=== PATIENT | female | born 1990 | race Caucasian/White ===

== ENCOUNTER 2016-08-29 20:16 | Inpatient (IN) | payer OTHER ==
[~2016-08-29] VITALS: Ht 162.6 cm; Wt 54.0 kg
[~2016-08-29 20:16] MED LIST: AMOX500C PO; BACL10TA PO; BUME1TAB PO; CELE20TA PO; DOCU1CAP39 PO; FURO1TAB62 PO; GABA800T PO; LACT PO; MULT-28 PO; OXYC-392 PO; POTA20TA5 PO; REST15CA PO; VENTAER INH
[2016-08-29 20:20] VITALS: BP 138/99; PULSE 130; RESP 38; TEMP 98.1; O2SAT 100; O2SAT 97
[2016-08-29] MEDS ORDERED: VANCOMYCIN INJ 1,250 MG in SODIUM CHLOR 0.9% 250 ML INJ 250 ML IV STA (20:41)
[2016-08-29] MEDS ORDERED: AZITHROMYCIN INJ 500 MG in SODIUM CHLOR 0.9% 250 ML INJ 250 ML IV STA (20:41)
[2016-08-29] MEDS ORDERED: SODIUM CHLORIDE 0.9% FLUSH 5 ML FLUSH IVF PRN (20:45)
[2016-08-29] MEDS ORDERED: CEFEPIME INJ 2,000 MG in SODIUM CHLORIDE 0.9% INJ 100 ML IV ONE (20:45)
[2016-08-29 21:00] VITALS: BP 138/99; PULSE 130; RESP 40; TEMP 98.1; O2SAT 95; O2SAT 97
[2016-08-29 21:05] LABS: AUTOMATED NEUTROPHIL # 5.6 TH/MM3 (1.8-7.7); BASOPHIL # 0.1 TH/MM3 (0-0.2); BASOPHIL % 0.6 % (0.0-2.0); EOSINOPHIL # 0.1 TH/MM3 (0-0.4); EOSINOPHIL % 0.8 % (0.0-4.0); HEMO FLAGS DIFF FINAL; LYMPH % 42.6 % (9.0-44.0); LYMPHOCYTE # 4.8 TH/MM3 (1.0-4.8); MEAN CELL VOLUME 99.9 FL (80.0-100.0); MEAN CORPUSCULAR HEMOGLOBIN 31.6 PG (27.0-34.0); MEAN CORPUSCULAR HGB CONC 31.7 % (32.0-36.0); PLATELET COUNT 178 TH/MM3 (150-450); WHITE BLOOD COUNT 11.2 TH/MM3 (4.0-11.0)
[2016-08-29] MEDS ORDERED: HYDROmorphone HCL PF 1 MG/ML VIAL IV PUSH ONE ×2 (21:15→22:30)
--- NOTE | 2016-08-29 21:20 | RADRPT ---
EXAM DATE/TIME: 08/29/2016 20:47 [facility] COMPARISON: CHEST SINGLE AP, August 20, 2016, 17:14. INDICATIONS : Shortness of breath MEDICAL HISTORY : Cerebrovascular accident. Endocarditis. Hepatitis C. IV drug use. Clostridium SURGICAL HISTORY : None. ENCOUNTER: Initial ACUITY: 1 day PAIN SCORE: 0/10 LOCATION: Bilateral chest FINDINGS: There is cardiomegaly, bilateral effusions and consolidation suspected. Osseous structures are intact . CONCLUSION: Airspace disease and effusions. Jonny Neal MD on August 29, 2016 at 21:18 Board Certified Radiologist. This report was verified electronically.
[2016-08-29 21:23] LABS: INTERNATIONAL NORMALIZED RATIO 1.5 RATIO; PROTHROMBIN TIME - PATIENT 16.4 SEC (9.8-11.6)
[2016-08-29 21:24] LABS: ANION GAP 14 MEQ/L (5-15); AST (GOT) 162 U/L (15-37); BICARBONATE 21.3 MEQ/L (21.0-32.0); BLOOD UREA NITROGEN 16 MG/DL (7-18); CHLORIDE 94 MEQ/L (98-107); GLOMERULAR FILTRATION RATE 54 ML/MIN (>89); POTASSIUM 5.7 MEQ/L (3.5-5.1); SODIUM (NA) 129 MEQ/L (136-145)
[2016-08-29 21:27] LABS: ALKALINE PHOSPHATASE 261 U/L (45-117); ALT (GPT) 142 U/L (10-53)
[2016-08-29 21:29] LABS: CREATINE KINASE 178 U/L (26-192)
[2016-08-29 21:44] LABS: CKMB 0.9 NG/ML (0.5-3.6)
[2016-08-29] MEDS ORDERED: DEXTROSE 50% IN WATER 50 ML VIAL(D50) IV PUSH ONE (22:00)
[2016-08-29] MEDS ORDERED: CALCIUM GLUCONATE 10% 1 GM/10 ML VIAL SLOW IVP ONE (22:00)
[2016-08-29] MEDS ORDERED: SODIUM BICARBONATE 8.4% SOLN 50 MEQ/50 ML VIAL SLOW IVP ONE (22:00)
[2016-08-29 22:08] LABS: BLOOD GAS BASE EXCESS -7.1 mmol/L (-2-2); BLOOD GAS CARBOXYHEMOGLOBIN 2.8 % (0-4); BLOOD GAS HCO3 17 mmol/L (22-26); BLOOD GAS METHEMOGLOBIN 1.8 % (0-2); BLOOD GAS O2 HGB SATURATION 90 % (90-100); BLOOD GAS OXYGEN CONTENT 18.9 Vol % (12.0-20.0); BLOOD GAS PCO2 26 mmHg (38-42); BLOOD GAS PO2 75 mmHG (61-120); BLOOD GAS TOTAL HGB 14.9 G/DL (12.0-16.0); TEMP CORR TO 98.6
[2016-08-29 22:09] LABS: CRITICAL VALUE NO; DRAW SITE RT RADIAL; LITER FLOW 3 L/M; OXYGEN DEVICE NASAL CANNULA; STAT YES; ULNAR PULSE Y
[2016-08-29] MEDS ORDERED: INSULIN HUMAN REGULAR 1,000 UNITS/10 ML VIAL IV PUSH ONE (22:15)
[2016-08-29] MEDS ORDERED: IOHEXOL 350 MG/ML 10 ML VIAL (for RAD DIAG) IV ONE (22:35)
--- NOTE | 2016-08-29 22:44 | RADRPT ---
EXAM DATE/TIME: 08/29/2016 22:24 [facility] COMPARISON: CHEST SINGLE AP, August 29, 2016, 20:47. INDICATIONS : Shortness of breath and chest pressure. IV CONTRAST: 54 cc Omnipaque 350 (iohexol) IV RADIATION DOSE: 16.36 CTDIvol (mGy) MEDICAL HISTORY : Hepatitis C. SURGICAL HISTORY : None. ENCOUNTER: Initial ACUITY: 1 day PAIN SCALE: 4/10 LOCATION: chest TECHNIQUE: Volumetric scanning of the chest was performed using a pulmonary embolism protocol MIP images were re constructed. Using automated exposure control and adjustment of the mA and/or kV according to patien t size, radiation dose was kept as low as reasonably achievable to obtain optimal diagnostic quality images. FINDINGS: There are patchy bilateral infiltrates throughout both lungs. There are bilateral pleural effusions r ight greater than left. There is reflux of contrast into the hepatic veins. There is no evidence for pulmonary embolism within the main pulmonary arteries bilaterally however evaluation of the subsegmen shanna branches is significantly limited. CONCLUSION: 1. There is no evidence for pulmonary embolism within the main pulmonary arteries. Evaluation of the lower lobe subsegmental branches however is significantly limited and PE cannot be confidently exclud ed on the basis of this examination. 2. Bilateral pleural effusions and patchy bilateral pulmonary infiltrates are identified. Jonny Neal MD on August 29, 2016 at 22:40 Board Certified Radiologist. This report was verified electronically.
[2016-08-29] MEDS ORDERED: FUROSEMIDE 100 MG/10 ML VIAL IV PUSH ONE (22:45)
[2016-08-29 22:55] LABS: LACTIC ACID GHOST NOT REPORTABLE
[2016-08-29] MEDS ORDERED: ROCURONIUM INJ 50 MG/5 ML VIAL ONE (22:56)
[2016-08-29] MEDS ORDERED: ETOMIDATE 20 MG/10 ML VIAL ONE (22:56)
--- NOTE | 2016-08-29 22:59 | PD ---
HPI Chief Complaint: Respiratory Distress Time Seen by Provider: 20:41 Travel History International Travel<30 days: No Contact w/Intl Traveler<30days: No Traveled to known affect area: No History of Present Illness HPI The patient is 26 years old. She arrives short of breath. She has bilateral lower extremity swelling. The lower extremity swelling has been increasingly severe for a couple weeks now. No shortness of breath has been worsening as well. She reports history of DVTs. Her primary care provider saw her today and sent her to the ER for evaluation. 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 She reports no IV drug abuse for the past 6 weeks. PFSH Past Medical History Arthritis: No Asthma: No Autoimmune Disease: No Anxiety: Yes Depression: No Heart Rhythm Problems: No Cancer: No Cardiovascular Problems: Yes (ENDOCARDITIS) High Cholesterol: No Chemotherapy: No Chest Pain: No Congestive Heart Failure: No COPD: No Cerebrovascular Accident: Yes Diabetes: No Diminished Hearing: No Endocrine: No Gastrointestinal Disorders: Yes GERD: No Genitourinary: No Headaches: Yes Hiatal Hernia: No Immune Disorder: No Kidney Stones: No Musculoskeletal: No Neurologic: Yes Psychiatric: Yes Reproductive: No Respiratory: No Migraines: No Pneumonia: Yes Radiation Therapy: No Renal Failure: No Seizures: No Sleep Apnea: No Thyroid Disease: No Ulcer: No Tetanus Vaccination: < 5 Years Influenza Vaccination: Yes ?: Not : 0 Para: 0 Miscarriage: 0 : 0 Past Surgical History Abdominal Surgery: No AICD: No Arteriovenous Shunt: No Cardiac Surgery: No Ear Surgery: No Endocrine Surgery: No Eye Surgery: No Genitourinary Surgery: No Gynecologic Surgery: No Insulin Pump: No Joint Replacement: No Oral Surgery: No Pacemaker: No Thoracic Surgery: No Other Surgery: No Social History Alcohol Use: No Tobacco Use: No Substance Use: No (HX IV ) Allergies-Medications (Allergen,Severity, Reaction): Coded Allergies: *MDRO Multi-Drug Resistant Organism (Verified Adverse Reaction, Unknown, 08/29/16) MRSA PCR screen positive - 10/18/2015 & 08/12/16 MRSA urine, blood, sputum and CSF- 10/2015 MDR PSAE in sputum 2016 Reported Meds & Prescriptions Reported Meds & Active Scripts Active Lasix (Furosemide) 20 Mg Tab 20 Mg PO DAILY 7 Days Amoxicillin 500 Mg Cap 500 Mg PO QID Oxycodone (Oxycodone HCl) 5 Mg Tab 10 Mg PO Q6H PRN Dok (Docusate Sodium) 100 Mg Cap 100 Mg PO BID PRN Ventolin Hfa 18 GM Inh (Albuterol Sulfate) 90 Mcg/Act Aer 2 Puff INH Q4-6H PRN Acidophilus/l-Sporogenes (Lactobacillus Acidophilus) 1 Tab Tab 1 Tab PO TID Potassium Chloride Microencaps 20 Meq Tab 40 Meq PO DAILY Bumetanide 1 Mg Tab 1 Mg PO BID@,18 Baclofen 10 Mg Tab 5 Mg PO Q8HR Restoril (Temazepam) 15 Mg Cap 15 Mg PO HS PRN Celexa (Citalopram Hydrobromide) 20 Mg Tab 20 Mg PO DAILY Hm One Daily/Iron (Multiple Vitamins W/ Iron) 1 Tab Tab 1 Tab PO DAILY Gabapentin 800 Mg Tab 800 Mg PO TID Review of Systems Except as stated in HPI: all other systems reviewed are Neg Physical Exam Narrative GENERAL: 26-year-old female moderate distress tachypneic SKIN: Warm and dry. HEAD: Atraumatic. Normocephalic. EYES: Pupils equal and round. No scleral icterus. No injection or drainage. ENT: No nasal bleeding or discharge. Mucous membranes pink and moist. NECK: Trachea midline. No JVD. CARDIOVASCULAR: Tachycardia. Regular rhythm. RESPIRATORY: Coarse breath sounds bilaterally. Mild tachypnea.. GASTROINTESTINAL: Abdomen soft, non-tender, nondistended. Hepatic and splenic margins not palpable. MUSCULOSKELETAL: No obvious deformities. No clubbing. No cyanosis. 4+ pitting edema bilateral lower extremities. 2+ dorsalis pedis bilaterally. NEUROLOGICAL: Awake and alert. No obvious cranial nerve deficits. Motor grossly within normal limits. Normal speech. PSYCHIATRIC: Appropriate mood and affect; insight and judgment normal. Data Data Last Documented VS Vital Signs Date Time Temp Pulse Resp B/P Pulse Ox O2 Delivery O2 Flow Rate FiO2 08/29/16 21:00 95 Nasal Cannula 3.00 08/29/16 20:20 98.1 130 38 138/99 Orders Complete Blood Count With Diff (08/29/16 20:35) Comprehensive Metabolic Panel (08/29/16 20:35) B-Type Natriuretic Peptide (08/29/16 20:35) Act Partial Throm Time (Ptt) (08/29/16 20:35) Prothrombin Time / Inr (Pt) (08/29/16 20:35) Blood Culture (08/29/16 20:35) Iv Access Insert/Monitor (08/29/16 20:35) Electrocardiogram (08/29/16 20:35) Ecg Monitoring (08/29/16 20:35) Oximetry (08/29/16 20:35) Oxygen Administration (08/29/16 20:35) Chest, Single Ap (08/29/16 20:35) Ct Pulmonary Angiogram (08/29/16 20:35) Sodium Chloride 0.9% Flush (Ns Flush) (08/29/16 20:45) Electrocardiogram (08/29/16 20:41) Lactic Acid Sepsis Protocol (08/29/16 20:41) Ckmb (Isoenzyme) Profile (08/29/16 20:41) Troponin I (08/29/16 20:41) Arterial Blood Gas (Abg) (08/29/16 20:41) Blood Glucose (08/29/16 20:41) Iv Access Insert/Monitor (08/29/16 20:41) Vancomycin Inj (Vancomycin Inj) (08/29/16 20:41) Azithromycin Inj (Zithromax Inj) (08/29/16 20:41) Cefepime Inj (Maxipime Inj) (08/29/16 20:45) Us Leg Venous Doppler Bilat (08/29/16 ) Hydromorphone Pf Inj (Dilaudid Pf Inj) (08/29/16 21:15) CKMB (08/29/16 20:40) CKMB% (08/29/16 20:40) Calcium Gluconate Inj (Calcium Gluconate (08/29/16 22:00) Insulin Human Regular Inj (Novolin R Inj (08/29/16 22:15) Dextrose 50% In Michael (Vial) Inj (D50w (Vi (08/29/16 22:00) Sodium Bicarbonate 8.4% Inj (Sodium Bica (08/29/16 22:00) Hydromorphone Pf Inj (Dilaudid Pf Inj) (08/29/16 22:30) Furosemide Inj (Lasix Inj) (08/29/16 22:45) Iohexol 350 Inj (Omnipaque 350 Inj) (08/29/16 22:35) Admit Order (Ed Use Only) (08/29/16 22:38) Labs Laboratory Tests Test 08/29/16 08/29/16 20:40 21:58 White Blood Count 11.2 TH/MM3 Red Blood Count 5.00 MIL/MM3 Hemoglobin 15.8 GM/DL Hematocrit 50.0 % Mean Corpuscular Volume 99.9 FL Mean Corpuscular Hemoglobin 31.6 PG Mean Corpuscular Hemoglobin 31.7 % Concent Red Cell Distribution Width 21.0 % Platelet Count 178 TH/MM3 Mean Platelet Volume 9.3 FL Neutrophils (%) (Auto) 50.0 % Lymphocytes (%) (Auto) 42.6 % Monocytes (%) (Auto) 6.0 % Eosinophils (%) (Auto) 0.8 % Basophils (%) (Auto) 0.6 % Neutrophils # (Auto) 5.6 TH/MM3 Lymphocytes # (Auto) 4.8 TH/MM3 Monocytes # (Auto) 0.7 TH/MM3 Eosinophils # (Auto) 0.1 TH/MM3 Basophils # (Auto) 0.1 TH/MM3 CBC Comment DIFF FINAL Differential Comment Prothrombin Time 16.4 SEC Prothromb Time International 1.5 RATIO Ratio Activated Partial 28.0 SEC Thromboplast Time Sodium Level 129 MEQ/L Potassium Level 5.7 MEQ/L Chloride Level 94 MEQ/L Carbon Dioxide Level 21.3 MEQ/L Anion Gap 14 MEQ/L Blood Urea Nitrogen 16 MG/DL Creatinine 1.19 MG/DL Estimat Glomerular Filtration 54 ML/MIN Rate Random Glucose 125 MG/DL Lactic Acid Level 8.2 mmol/L Calcium Level 8.7 MG/DL Total Bilirubin 2.0 MG/DL Aspartate Amino Transf 162 U/L (AST/SGOT) Alanine Aminotransferase 142 U/L (ALT/SGPT) Alkaline Phosphatase 261 U/L Total Creatine Kinase 178 U/L Creatine Kinase MB 0.9 NG/ML Troponin I 0.39 NG/ML B-Type Natriuretic Peptide 1732 PG/ML Total Protein 8.0 GM/DL Albumin 3.1 GM/DL Blood Gas Puncture Site RT RADIAL Blood Gas Patient Temperature 98.6 Blood Gas HCO3 17 mmol/L Blood Gas Base Excess -7.1 mmol/L Blood Gas Oxygen Saturation 90 % Arterial Blood pH 7.42 Arterial Blood Partial 26 mmHg Pressure CO2 Arterial Blood Partial 75 mmHG Pressure O2 Arterial Blood Oxygen Content 18.9 Vol % Arterial Blood 2.8 % Carboxyhemoglobin Arterial Blood Methemoglobin 1.8 % Blood Gas Hemoglobin 14.9 G/DL Oxygen Delivery Device NASAL CANNULA Blood Gas Liter Flow 3 L/M MDM Medical Decision Making Medical Screen Exam Complete: Yes Emergency Medical Condition: Yes Medical Record Reviewed: Yes Differential Diagnosis Endocarditis, pneumonia, pleural effusion, DVT, PE, sepsis, multiorgan dysfunction, CHF, valvular regurgitation Narrative Course CBC & BMP Diagram 08/29/16 20:40 Lactic acid 8.2 Total bilirubin 2.0 AST was 62 ALT 142 Alkaline phosphatase 261 Troponin 0.39 BNP 1732 EKG shows sinus tachycardia with no evidence of hyperkalemic EKG changes Last 24 hours Impressions Chest X-Ray 08/29/162034 Signed Impressions: Service Date/Time: Monday, August 29, 2016 20:47 - CONCLUSION: Airspace disease and effusions. Jonny Neal MD CT Angiography 08/29/162034 Signed Impressions: Service Date/Time: Monday, August 29, 2016 22:24 - CONCLUSION: 1. There is no evidence for pulmonary embolism within the main pulmonary arteries. Evaluation of the lower lobe subsegmental branches however is significantly limited and PE cannot be confidently excluded on the basis of this examination. 2. Bilateral pleural effusions and patchy bilateral pulmonary infiltrates are identified. Jonny Neal MD The patient received 80 mg of IV Lasix. Vancomycin, azithromycin and cefepime started here. The patient will be admitted to the [facility]. Discussed with Dr. Edwards. The patient did require BiPAP at approximately 10 50 p.m. Critical Care Narrative Aggregate critical care time was 35 minutes. Time to perform other separately billable procedures was not included in the critical care time. My time did not include minutes spent treating any other patients simultaneously or on activities that did not directly contribute to the patient's treatment. The services I provided to this patient were to treat and/or prevent clinically significant deterioration that could result in: Cardiopulmonary arrest I provided critical care services requiring my management, as noted below: Chart data review, documentation time, medication orders and management, vital sign assessments/reviewing monitor data, ordering and reviewing lab tests, ordering and interpreting/reviewing x-rays and diagnostic studies, care of the patient and discussion of the patient with the admitting physicians. Sepsis Criteria SIRS Criteria (2 or more): Heart rate over 90, RR > 20 or PaCO2 < 32 Sepsis Criteria (SIRS+source): Infect source susp/known Severe Sepsis (+one): Lactate >2 Septic Shock Criteria: Lactic acid >=4 Multiple Organ Dysfunction Syn: Evidence -2 organs failing Diagnosis Primary Impression: Sepsis with multiple organ dysfunction (MOD) Additional Impressions: CHF due to valvular disease Hyperkalemia Admitting Information Admitting Physician Requests: Admit Brendan Blanc MD Aug 29, 2016 22:59
[2016-08-29 23:00] VITALS: BP 141/86; PULSE 141; RESP 38; O2SAT 98
[2016-08-29 23:15] VITALS: O2SAT 95
[2016-08-30] VITALS (17 sets, daily range): BP systolic 89–116; BP diastolic 54–78; PULSE 72–116; RESP 12–22; TEMP 98.3–98.9; O2SAT 97–100
[2016-08-30] MEDS ORDERED: HYDROmorphone HCL PF 1 MG/ML VIAL IV PUSH ONE (01:15)
--- NOTE | 2016-08-30 01:37 | HHI.HP ---
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 status post previous antibiotic therapy who presented to the ER with worsening shortness of breath which has been progressing over the last few months. She was evaluated at her primary care physician's office today and was advised to come to the ER. Patient was noted to be tachycardic with heart rate in the 130s respiratory rate 30s with significant edema on arrival. She was placed on nasal cannula initially however subsequently due to worsening respiratory status was placed on BiPAP. She received Lasix 80 mg IV and weight 1600 cc of urine in the ER. Patient was accepted for admission by critical care medicine service. When I evaluated the patient she was on BiPAP with full facemask, sitting up in the ER stretcher. Review of Systems ROS Shortness of breath, denies any chest pain. Review of systems Limited in view of severe shortness of breath requiring BiPAP with full facemask Past Family Social History Allergies: Coded Allergies: *MDRO Multi-Drug Resistant Organism (Verified Adverse Reaction, Unknown, 08/29/16) MRSA PCR screen positive - 10/18/2015 & 08/12/16 MRSA urine, blood, sputum and CSF- 10/2015 MDR PSAE in sputum 2016 Past Medical History Past Medical History Arthritis: No Asthma: No Autoimmune Disease: No Anxiety: Yes Depression: No Heart Rhythm Problems: No Cancer: No Cardiovascular Problems: Yes (ENDOCARDITIS involving mitral and aortic valve with severe MR and aortic regurg) High Cholesterol: No Chemotherapy: No Chest Pain: No Congestive Heart Failure: No COPD: No Cerebrovascular Accident: Yes Diabetes: No Diminished Hearing: No Endocrine: No Gastrointestinal Disorders: Yes GERD: No Genitourinary: No Headaches: Yes Hiatal Hernia: No Immune Disorder: No Kidney Stones: No Musculoskeletal: No Neurologic: Yes Psychiatric: Yes Reproductive: No Respiratory: No Migraines: No Pneumonia: Yes Radiation Therapy: No Renal Failure: No Seizures: No Sleep Apnea: No Thyroid Disease: No Ulcer: No Tetanus Vaccination: < 5 Years Influenza Vaccination: Yes ?: Not : 0 Para: 0 Miscarriage: 0 : 0 Past Surgical History Past Surgical History Abdominal Surgery: No AICD: No Arteriovenous Shunt: No Cardiac Surgery: No Ear Surgery: No Endocrine Surgery: No Eye Surgery: No Genitourinary Surgery: No Gynecologic Surgery: No Insulin Pump: No Joint Replacement: No Oral Surgery: No Pacemaker: No Thoracic Surgery: No Other Surgery: No Reported Medications Reported Meds & Prescriptions Reported Meds & Active Scripts Active Lasix (Furosemide) 20 Mg Tab 20 Mg PO DAILY 7 Days Amoxicillin 500 Mg Cap 500 Mg PO QID Oxycodone (Oxycodone HCl) 5 Mg Tab 10 Mg PO Q6H PRN Dok (Docusate Sodium) 100 Mg Cap 100 Mg PO BID PRN Ventolin Hfa 18 GM Inh (Albuterol Sulfate) 90 Mcg/Act Aer 2 Puff INH Q4-6H PRN Acidophilus/l-Sporogenes (Lactobacillus Acidophilus) 1 Tab Tab 1 Tab PO TID Potassium Chloride Microencaps 20 Meq Tab 40 Meq PO DAILY Bumetanide 1 Mg Tab 1 Mg PO BID@,18 Baclofen 10 Mg Tab 5 Mg PO Q8HR Restoril (Temazepam) 15 Mg Cap 15 Mg PO HS PRN Celexa (Citalopram Hydrobromide) 20 Mg Tab 20 Mg PO DAILY Hm One Daily/Iron (Multiple Vitamins W/ Iron) 1 Tab Tab 1 Tab PO DAILY Gabapentin 800 Mg Tab 800 Mg PO TID Family History noncontributory at this time. Social History Social History Alcohol Use: No Tobacco Use: No Substance Use: No (HX IV ) Physical Exam Vital Signs Vital Signs Date Time Temp Pulse Resp B/P Pulse Ox O2 Delivery O2 Flow Rate FiO2 08/30/16 00:48 100 60 08/29/16 23:15 95 60 08/29/16 21:00 95 Nasal Cannula 3.00 08/29/16 20:20 98.1 130 38 138/99 97 08/29/16 20:20 130 38 97 Room Air 08/29/16 20:20 38 100 Nasal Cannula 3 08/29/16 20:20 100 Nasal Cannula 3 Physical Exam HEENT/Neuro: No pallor or icterus, tongue moist, ISRA, Awake alert oriented 3 , nonfocal grossly, moving all 4 extremities Neck: No JVD Chest/pulmonary: On BiPAP fullface mask, scattered rhonchi/crackles bilaterally , no wheezing Cardiovascular: S1-S2 regular no gallop or murmur GI/abdomen: Soft, nontender, bowel sounds present Extremities: Warm bilaterally, bilateral edema Laboratory Laboratory Tests Test 08/29/16 08/29/16 20:40 21:58 White Blood Count 11.2 Red Blood Count 5.00 Hemoglobin 15.8 Hematocrit 50.0 Mean Corpuscular Volume 99.9 Mean Corpuscular Hemoglobin 31.6 Mean Corpuscular Hemoglobin 31.7 Concent Red Cell Distribution Width 21.0 Platelet Count 178 Mean Platelet Volume 9.3 Neutrophils (%) (Auto) 50.0 Lymphocytes (%) (Auto) 42.6 Monocytes (%) (Auto) 6.0 Eosinophils (%) (Auto) 0.8 Basophils (%) (Auto) 0.6 Neutrophils # (Auto) 5.6 Lymphocytes # (Auto) 4.8 Monocytes # (Auto) 0.7 Eosinophils # (Auto) 0.1 Basophils # (Auto) 0.1 CBC Comment DIFF FINAL Differential Comment Prothrombin Time 16.4 Prothromb Time International 1.5 Ratio Activated Partial 28.0 Thromboplast Time Sodium Level 129 Potassium Level 5.7 Chloride Level 94 Carbon Dioxide Level 21.3 Anion Gap 14 Blood Urea Nitrogen 16 Creatinine 1.19 Estimat Glomerular Filtration 54 Rate Random Glucose 125 Lactic Acid Level 8.2 Calcium Level 8.7 Total Bilirubin 2.0 Aspartate Amino Transf 162 (AST/SGOT) Alanine Aminotransferase 142 (ALT/SGPT) Alkaline Phosphatase 261 Total Creatine Kinase 178 Creatine Kinase MB 0.9 Troponin I 0.39 B-Type Natriuretic Peptide 1732 Total Protein 8.0 Albumin 3.1 Blood Gas Puncture Site RT RADIAL Blood Gas Patient Temperature 98.6 Blood Gas HCO3 17 Blood Gas Base Excess -7.1 Blood Gas Oxygen Saturation 90 Arterial Blood pH 7.42 Arterial Blood Partial 26 Pressure CO2 Arterial Blood Partial 75 Pressure O2 Arterial Blood Oxygen Content 18.9 Arterial Blood 2.8 Carboxyhemoglobin Arterial Blood Methemoglobin 1.8 Blood Gas Hemoglobin 14.9 Oxygen Delivery Device NASAL CANNULA Blood Gas Liter Flow 3 Date/Time Procedure Status Source Growth 08/29/16 20:45 Aerobic Blood Culture Received Blood Peripheral Pending 08/29/16 20:45 Anaerobic Blood Culture Received Blood Peripheral Pending Result Diagram: 08/29/16203908/29/160 Imaging Last Impressions Chest X-Ray 08/29/162034 Signed Impressions: Service Date/Time: Monday, August 29, 2016 20:47 - CONCLUSION: Airspace disease and effusions. Jonny Neal MD CT Angiography 08/29/162034 Signed Impressions: Service Date/Time: Monday, August 29, 2016 22:24 - CONCLUSION: 1. There is no evidence for pulmonary embolism within the main pulmonary arteries. Evaluation of the lower lobe subsegmental branches however is significantly limited and PE cannot be confidently excluded on the basis of this examination. 2. Bilateral pleural effusions and patchy bilateral pulmonary infiltrates are identified. 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 Pain medications as needed. Cardiovascular: Elevated BNP. Received Lasix 80 mg IV earlier. Continue diuresis. 2-D echo to evaluate aortic and mitral valves as well as LVEF. Pulmonary: On BiPAP with full facemask. If respiratory status declines despite BiPAP may require endotracheal intubation and mechanical ventilation. Bronchodilators as needed. Continue diuresis. GI/liver: Nothing by mouth for now. If respiratory status improves with diuresis may consider by mouth diet. Renal/: Strict intake output, monitor and replete elecrolytes, follow BUN/ creatinine. Diurese with Lasix. Received glucose/insulin/bicarbonate earlier for hyperkalemia. ID: Started on cefepime/vanc/Zithromax in ER which will be continued. Follow- up cultures. Check urine for strep pneumo and Legionella antigen. Endocrine: Watch for hyperglycemia, SSI for glycemic control if needed. Heme: Follow CBC Prophylaxis: PPI/SCDs/Lovenox. Condition critical Time spent on critical care excluding procedures 60 minutes Tam Edwards MD Aug 30, 2016 01:37 Condition critical Time spent on critical care excluding procedures 60 minutes Tam Edwards MD Aug 30, 2016 01:37
[2016-08-30] MEDS ORDERED: MISCELLANEOUS NURSING INFORMATION XX SCH (02:15)
[2016-08-30] MEDS ORDERED: ACETAMINOPHEN 325 MG TAB PO PRN (02:15)
[2016-08-30] MEDS ORDERED: Vancomycin Consult Pharmacy 1 EA OTHER SCH (02:15)
[2016-08-30] MEDS ORDERED: CHLORHEXIDINE GLUCONATE 2 % 1 PACK (2 CLOTHS) TOP PRN (02:15)
[2016-08-30] MEDS: FUROSEMIDE 40 MG/4 ML VIAL IV PUSH SCH ×4 (03:55→21:19)
[2016-08-30] MEDS: RESP: ALBUTEROL 2.5 MG/IPRATROPIUM 0.5 MG NEB (SCH) NEB ×4 (04:02→21:12)
[2016-08-30] MEDS ORDERED: VANCOMYCIN INJ 900 MG in SODIUM CHLOR 0.9% 250 ML INJ 250 ML IV SCH (08:00)
[2016-08-30] MEDS: CHLORHEXIDINE 0.12% (ORAL KIT) 15 ML CUP MT SCH ×2 (08:00→20:00)
[2016-08-30] MEDS: PANTOPRAZOLE SODIUM 40 MG VIAL IV SCH (09:00)
[2016-08-30] MEDS: ENOXAPARIN SODIUM 40 MG/0.4 ML SYRINGE SQ SCH (10:25)
[2016-08-30] MEDS: SODIUM CHLORIDE 0.9% FLUSH 5 ML FLUSH IVF SCH ×2 (10:27→21:00)
[2016-08-30] MEDS: CEFEPIME INJ 2,000 MG in SODIUM CHLORIDE 0.9% INJ 100 ML IV SCH ×2 (10:34→16:00)
--- NOTE | 2016-08-30 13:46 | EKG ---
Date Performed: 08/29/2016 Time Performed: 21:09:33 PTAGE: 26 years EKG: SINUS TACHYCARDIA RIGHT VENTRICULAR HYPERTROPHY AND ST-T CHANGE ANTEROSEPTAL MYOCARDIAL INF ARCTION SEVERE RIGHT AXIS DEVIATION LARGELY UNCHANGED FROM PRIOR TRACING ABNORMAL ECG PREVIOUS TRACING : 08/20/2016 18.29.00 DOCTOR: Brian Uribe Interpretating Date/Time 08/30/2016 13:44:34
--- NOTE | 2016-08-30 13:52 | EC ---
Study Study Date:08/30/2016 STUDY CONCLUSIONS SUMMARY - Left ventricle: The cavity size was dilated. Wall thickness was normal. Systolic function was moderately to severely reduced. The estimated ejection fraction was in the range of 30% to 35%. Diffuse hypokinesis. - Aortic valve: Moderate regurgitation. Valve area: 2.32cm^2(VTI). Valve area: 2.13cm^2 (Vmax). - Mitral valve: Moderate to severe regurgitation. - Pulmonic valve: Mild regurgitation. - Pulmonary arteries: PA peak pressure: 32mm Hg (S). If LV function is below 40, please consider prescribing an ACEI or ARB or document rationale for non-use. PROCEDURE DATA STUDY STATUS: Elective. Procedure: Transthoracic echocardiography. Image quality was good. Scanning was performed from the parasternal, apical, and subcostal acoustic windows. Study completion: The patient tolerated the procedure well. Transthoracic echocardiography. M-mode, complete 2D, complete spectral Doppler, and color Doppler. Height: Height: 64in. Weight: Weight: 131.7lb. Body mass index: BMI: 22.7kg/m^2. Body surface area: BSA: 1.64m^2. Patient status: Inpatient. CARDIAC ANATOMY LEFT VENTRICLE: The cavity size was dilated. Wall thickness was normal. Systolic function was moderately to severely reduced. The estimated ejection fraction was in the range of 30% to 35%. Diffuse hypokinesis. AORTIC VALVE: Trileaflet; normal thickness leaflets. Doppler: Transvalvular velocity was within the normal range. There was no stenosis. Moderate regurgitation. Valve area: 2.32cm^2(VTI). Indexed valve area: 1.41cm^2/m^2 (VTI). Valve area: 2.13cm^2 (Vmax). Indexed valve area: 1.3cm^2/m^2 (Vmax). Mean gradient: 4mm Hg (S). AORTA: Aortic root: The aortic root was normal in size. MITRAL VALVE: Structurally normal valve. Doppler: Transvalvular velocity was within the normal range. There was no evidence for stenosis. Moderate to severe regurgitation. Peak gradient: 8mm Hg (D). LEFT ATRIUM: The atrium was normal in size. RIGHT VENTRICLE: The cavity size was normal. Wall thickness was normal. PULMONIC VALVE: Doppler: Transvalvular velocity was within the normal range. There was no evidence for stenosis. Mild regurgitation. TRICUSPID VALVE: Structurally normal valve. Doppler: Transvalvular velocity was within the normal range. No regurgitation. PULMONARY ARTERY: The main pulmonary artery was normal-sized. Systolic pressure was within the normal range. RIGHT ATRIUM: The atrium was normal in size. PERICARDIUM: There was no pericardial effusion. SYSTEMIC VEINS: Inferior vena cava: The vessel was normal in size. Patient weight: 131.7lb _Ejection fraction:_ 65-75% _Fractional shortening:_ 32% up to 5Kg 5-11.5Kg 11.6-22.9Kg 23-45Kg 45-57Kg Aortic Root 7-13 <17 13-22 17-27 17-27 LA diam 6-13 <23 24-38 33-47 37-40 RVID 10-17 7-15 7-15 7-18 8-17 LVIDd 12-22 <32 24-38 33-47 37-40 LVPW 2-4 3-6 5-7 6-8 7-8 IVS 2-4 3-6 5-7 6-8 7-8 BASIC MEASUREMENTS ADULT NORMAL Left ventricle LV internal dimension, ED, chordal *56.8 mm 43-52 level, PLAX LV internal dimension, ES, chordal *41.1 mm 23-38 level, PLAX Fractional shortening, chordal level, *28 % >29 PLAX LV posterior wall thickness, ED 8.4 mm IVS/LVPW ratio, ED 1.01 <1.3 Ventricular septum Septal thickness, ED 8.45 mm Aortic valve Leaflet separation 19 mm 15-26 Aorta Root diameter, ED 28 mm Right ventricle RV internal dimension, ED, PLAX 36 mm 19-38 BASIC MEASUREMENTS ADULT NORMAL Aortic valve Leaflet separation 19 mm 15-26 DOPPLER MEASUREMENTS ADULT NORMAL Main pulmonary artery Pressure, S *32 mm Hg =30 Pressure, ED 21 mm Hg Aortic valve Peak velocity, S 121 cm/s Mean velocity, S 92.4 cm/s VTI, S 22.7 cm Mean gradient, S 4 mm Hg Valve area, VTI 2.32 cm^2 Valve area index, VTI 1.41 cm^2/m^2 Valve area, Vmax 2.13 cm^2 Valve area index, Vmax 1.3 cm^2/m^2 Regurgitant velocity, ED 409 cm/s Regurgitant deceleration 3180 cm/s^2 Regurgitant pressure half-time 378 ms Regurgitant gradient, ED 67 mm Hg Mitral valve Peak E-wave velocity 143 cm/s Peak A-wave velocity 29 cm/s Peak gradient, D 8 mm Hg Peak E/A ratio 4.9 Tricuspid valve Regurgitant peak velocity 235 cm/s Peak RV-RA gradient, S 22 mm Hg Maximal regurgitant velocity 235 cm/s Systemic veins Estimated CVP 10 mm Hg Right ventricle RV pressure, S *32 mm Hg <30 Pulmonic valve Regurgitant velocity, ED 169 cm/s LEGEND: Mean values are shown as u=mean value. Asterisk (*) quiles values outside specified normal range. Prepared and signed by Patrick Thomas [id number]
--- NOTE | 2016-08-30 14:03 | RADRPT ---
EXAM DATE/TIME: 08/29/2016 21:13 [facility] COMPARISON: US LEG BILATERAL VENOUS DOPPLER, August 29, 2016, 21:13. INDICATIONS : Thrombosis. MEDICAL HISTORY : Endocarditis. Hepatitis C. IV substance abuse. MRSA. SURGICAL HISTORY : Cervical spine fusion. ENCOUNTER: Subsequent ACUITY: 1 day PAIN SCORE: 5/10 LOCATION: Bilateral leg. TECHNIQUE: Venous ultrasound of the left and right leg was performed from the inguinal ligament to the proximal calf. Real-time, color Doppler and spectral tracing, compression and augmentation techniques were us ed. FINDINGS: RIGHT LEG: There is normal compressibility of the deep venous system from the inguinal region to the proximal ca lf. No echogenic clot is seen in the lumen of the common femoral, femoral, popliteal, and posterior tibial veins. There is a normal response of the venous system to proximal and distal augmentation an d respiration. LEFT LEG: There is normal compressibility of the deep venous system from the inguinal region to the proximal ca lf. No echogenic clot is seen in the lumen of the common femoral, femoral, popliteal, and posterior tibial veins. There is a normal response of the venous system to proximal and distal augmentation an d respiration. CONCLUSION: 1. No evidence for DVT. Jonny Neal MD on August 29, 2016 at 22:17 Board Certified Radiologist. This report was verified electronically.
[2016-08-30 15:38] LABS: AMPHETAMINE, URINE NEG (NEG); BARBITURATES, URINE NEG (NEG); COCAINE, URINE NEG (NEG)
--- NOTE | 2016-08-30 16:25 | PD.CONS ---
History of Present Illness Service Infectious Disease Consult Requested By Dr Lynn Reason for Consult Eval for Abx, hx endocarditis Primary Care Physician Abe Gray MD Diagnoses: History of Present Illness Patient seen and examined. Records reviewed And is a 26-year-old female, with history of IV drug use, percent to the hospital complaining of worsening shortness of breath, associated with increasing lower extremity edema. She's also had cough with occasional yellowish phlegm over the last several days. Patient lives with her mom and there is apparently episodes of respiratory infection going around in their household. There is been no fever or chills or sweats. Patient has had prior history of endocarditis and back in October 2015 she had mitral and aortic valve endocarditis. At that time she had CVA with left-sided weakness. She completed treatment for her endocarditis. She reportedly continued to use IV drugs, and readmitted in June and was diagnosed to have strep viridans bacteremia. Her echo at that time had shown severe AI, with a vegetation, moderate to severe MR, and also some abnormalities in the tricuspid valve. Patient completed IV antibiotic treatment, and she was discharge from the rehabilitation facility around August 17 with amoxicillin 4 times a day to be completed around August 31. Patient had an ED visit on August 20 complaining of lower extremity swelling, and she was diagnosed to have DVT. She was supposed to be admitted, however she signed out AGAINST MEDICAL ADVICE. Patient currently is on nasal O2. She was on BiPAP earlier. She is still complaining of shortness of breath, as well as significant swelling especially on the left side of her body. There is been no fever since admission. Her WBC is mildly elevated at 11.2. Chest x-ray showing bilateral opacities. CTA did not show any pulmonary embolism. It did show bilateral pulmonary infiltrates. Infectious disease consultation is requested to evaluate the patient. Review of Systems Constitutional: DENIES: Fever, Chills Eyes: DENIES: Eye pain Ears, nose, mouth, throat: DENIES: Nasal discharge, Oral lesions, Throat pain, Ear Pain, Sinus Pain, Odynophagia Respiratory: COMPLAINS OF: Cough, Sputum production, Shortness of breath, DENIES: Hemoptysis Cardiovascular: COMPLAINS OF: Dyspnea on Exertion, Lower Extremity Edema, DENIES: Chest pain, Palpitations, Syncope Gastrointestinal: DENIES: Abdominal pain, Diarrhea, Nausea Genitourinary: DENIES: Hematuria, Dysuria Musculoskeletal: COMPLAINS OF: Joint pain, Muscle aches Integumentary: DENIES: Rash Neurologic: DENIES: Headache Psychiatric: COMPLAINS OF: Anxiety Past Family Social History Allergies: Coded Allergies: *MDRO Multi-Drug Resistant Organism (Verified Adverse Reaction, Unknown, 08/29/16) MRSA PCR screen positive - 10/18/2015 & 08/12/16 MRSA urine, blood, sputum and CSF- 10/2015 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 Perez) Past Surgical History History of discitis status post ACDF by Dr. Cope on July 09, 2016 Active Ordered Medications Tylenol Albuterol Zithromax Cefepime Lovenox Lasix Protonix Vanco Social History Lives in [place] with mother. Ex smoker, quit several months ago ETOH: 1 glass wine per month Drugs: history of IV drug abuse, last use was several months ago Physical Exam Vital Signs Vital Signs Date Time Temp Pulse Resp B/P Pulse Ox O2 Delivery O2 Flow Rate FiO2 08/30/16 16:00 82 08/30/16 15:00 98.3 88 14 106/64 97 08/30/16 14:00 98.3 88 14 113/64 97 08/30/16 14:00 72 08/30/16 13:00 98.3 88 14 92/54 97 08/30/16 12:00 72 08/30/16 12:00 98.3 88 14 89/54 97 08/30/16 11:56 100 Nasal Cannula 4.00 08/30/16 11:40 100 35 08/30/16 10:00 72 08/30/16 07:35 100 45 08/30/16 05:00 98.6 100 12 100/60 100 BiPAP 50 08/30/16 03:00 106 12 106/60 100 BiPAP 50 08/30/16 01:00 98.9 116 12 116/78 99 BiPAP 3 50 08/30/16 00:48 100 60 08/29/16 23:15 95 60 08/29/16 23:00 141 38 141/86 98 Nasal Cannula 3 08/29/16 21:00 98.1 130 40 138/99 97 Nasal Cannula 3 08/29/16 21:00 95 Nasal Cannula 3.00 08/29/16 20:20 98.1 130 38 138/99 97 08/29/16 20:20 130 38 97 Room Air 08/29/16 20:20 38 100 Nasal Cannula 3 08/29/16 20:20 100 Nasal Cannula 3 Physical Exam GENERAL: This is a well-nourished, well-developed female, awake and alert, looks chronically ill-appearing, looks older than stated age, looks comfortable at rest SKIN: Cool and dry. No generalized rash, no ecchymosis. No embolic lesions noted. She has healing excoriations in the lower extremity from scratching HEAD: Atraumatic. Normocephalic. No temporal or scalp tenderness. EYES: [place] conjunctivae, no petechia or hemorrhage. Pupils equal round and reactive. Extraocular motions intact. No scleral icterus. No injection or drainage. ENT: Nose without bleeding, or purulent drainage. Moist oral mucosa. Throat without erythema, or exudate. Uvula midline. Airway patent. NECK: Trachea midline. No JVD or lymphadenopathy. Supple, nontender, no meningeal signs. CARDIOVASCULAR: Regular rate and rhythm without gallops, or rubs. Has systolic murmur over L precordium and at base of heart, tachycardic, no rub. RESPIRATORY: . Breath sounds equal bilaterally. Has scattered rhonchi and has decreased BS at bases. GASTROINTESTINAL: Abdomen soft, nondistended, bowel sounds present and normoactive. Has induration of skin on L side of her trunk. No hepato- splenomegaly, or palpable masses. No guarding. No rebound. MUSCULOSKELETAL: Extremities without clubbing, or cyanosis, Has violeta LE edema, worse on LLE than on RLE. No joint tenderness, effusion. No calf tenderness. Negative Homans sign bilaterally. NEUROLOGICAL: Awake and alert. Cranial nerves II through XII intact. No movement in her LUE, some movement in her LLE. L side flaccid. Normal speech. PSYCH: Looks depressed, calm and cooperative LINE: PIV with no evidence of infection : Carter cath in place, urine looks clear Laboratory Laboratory Tests Test 08/29/16 08/29/16 08/30/16 08/30/16 20:40 21:58 00:40 07:30 White Blood Count 11.2 Red Blood Count 5.00 Hemoglobin 15.8 Hematocrit 50.0 Mean Corpuscular Volume 99.9 Mean Corpuscular Hemoglobin 31.6 Mean Corpuscular Hemoglobin 31.7 Concent Red Cell Distribution Width 21.0 Platelet Count 178 Mean Platelet Volume 9.3 Neutrophils (%) (Auto) 50.0 Lymphocytes (%) (Auto) 42.6 Monocytes (%) (Auto) 6.0 Eosinophils (%) (Auto) 0.8 Basophils (%) (Auto) 0.6 Neutrophils # (Auto) 5.6 Lymphocytes # (Auto) 4.8 Monocytes # (Auto) 0.7 Eosinophils # (Auto) 0.1 Basophils # (Auto) 0.1 CBC Comment DIFF FINAL Differential Comment Prothrombin Time 16.4 Prothromb Time International 1.5 Ratio Activated Partial 28.0 Thromboplast Time Sodium Level 129 Potassium Level 5.7 Chloride Level 94 Carbon Dioxide Level 21.3 Anion Gap 14 Blood Urea Nitrogen 16 Creatinine 1.19 Estimat Glomerular Filtration 54 Rate Random Glucose 125 Lactic Acid Level 8.2 6.1 Calcium Level 8.7 Total Bilirubin 2.0 Aspartate Amino Transf 162 (AST/SGOT) Alanine Aminotransferase 142 (ALT/SGPT) Alkaline Phosphatase 261 Total Creatine Kinase 178 Creatine Kinase MB 0.9 Troponin I 0.39 B-Type Natriuretic Peptide 1732 Total Protein 8.0 Albumin 3.1 Blood Gas Puncture Site RT RADIAL Blood Gas Patient Temperature 98.6 Blood Gas HCO3 17 Blood Gas Base Excess -7.1 Blood Gas Oxygen Saturation 90 Arterial Blood pH 7.42 Arterial Blood Partial 26 Pressure CO2 Arterial Blood Partial 75 Pressure O2 Arterial Blood Oxygen Content 18.9 Arterial Blood 2.8 Carboxyhemoglobin Arterial Blood Methemoglobin 1.8 Blood Gas Hemoglobin 14.9 Oxygen Delivery Device NASAL CANNULA Blood Gas Liter Flow 3 Nasal Screen MRSA (PCR) NEGATIVE Test 08/30/16 13:30 Urine Opiates Screen NEG Urine Barbiturates Screen NEG Urine Amphetamines Screen NEG Urine Benzodiazepines Screen NEG Urine Cocaine Screen NEG Urine Cannabinoids Screen NEG Date/Time Procedure Status Source Growth 08/30/16 13:30 Legionella Antigen - Final Complete Urine Random Urine PRESUMPTIVE NEGATIVE FOR LEGIONELLA P... 08/30/16 13:30 Streptococcus pneumoniae Antigen (M - Final Complete Urine Random Urine PRESUMPTIVE NEGATIVE FOR STREPTOCOCCU... 08/29/16 20:45 Aerobic Blood Culture - Preliminary Resulted Blood Peripheral NO GROWTH IN 1 DAY 08/29/16 20:45 Anaerobic Blood Culture - Preliminary Resulted Blood Peripheral NO GROWTH IN 1 DAY Result Diagram: 08/29/16203908/29/162039 Imaging RADIOLOGY STUDIES/FILMS REVIEWED Impressions Chest X-Ray 08/29/162034 Signed Impressions: Service Date/Time: Monday, August 29, 2016 20:47 - CONCLUSION: Airspace disease and effusions. Jonny Neal MD CT Angiography 08/29/162034 Signed Impressions: Service Date/Time: Monday, August 29, 2016 22:24 - CONCLUSION: 1. There is no evidence for pulmonary embolism within the main pulmonary arteries. Evaluation of the lower lobe subsegmental branches however is significantly limited and PE cannot be confidently excluded on the basis of this examination. 2. Bilateral pleural effusions and patchy bilateral pulmonary infiltrates are identified. Jonny Neal MD Lower Extremity Ultrasound 08/29/16 0000 Signed Impressions: Service Date/Time: Monday, August 29, 2016 21:13 - CONCLUSION: 1. No evidence for DVT. Jonny Neal MD Assessment and Plan Assessment and Plan IMPRESSION Bilateral pulmonary infiltrates, likely pumonary edema due to her severe valvular heart disease from previous IE - ?if with CAP as well since several members of household had respiratory infections recently Hx MV and AV IE, previous ly had MRSA Oct 2015 S/P Rx, and Strep viridans Jun 2016 Previous episodes of PNA Hx MDR PSAE, MRSA infection Previous episode of C diff colitis RECOMMENDATION Rx for CAP, and include MDRO pathogens - continue Zithromax, cefepime and Vancomycin Legionella and Pneumococcal Ag Follow BC Check sputum C/S Monitor progress I will determine course of Abx once her work-up is completed I will follow along with you Thank you for this consultation Discussed Condition With Spoke with patient's mother D/W Kenia Munroe MD Aug 30, 2016 16:25
[2016-08-30] MEDS: VANCOMYCIN 1,000 MG/NS 250 ML IV SCH ×2 (18:00)
--- NOTE | 2016-08-30 18:15 | MB ---
cc: FELIX HOLLY CARY DATE OF CONSULTATION: 08/30/2016 REASON FOR CONSULTATION: Heart failure. HISTORY OF PRESENT ILLNESS: This is a 26-year-old female with past medical history significant for, IVDA use , aortic and mitral endocarditis and complicated hospitalizations recently who presented to the hospital with complaints of worsening shortness of breath with exertion in the last couple of days as well as leg swelling. These complaints have been worsening throughout the last couple of days despite compliance p.o. medications for diuresis as well as compliance with medications and diet. On presentation to the emergency department, she was treated with IV diuresis as well as BiPAP with good resolution of symptoms and adequate diuresis. Currently she reports feeling better. She denies fever, chills, chest pain, shortness of breath, palpitations, and has been noncompliant with medications and diet. Cardiology has been consulted for further management and evaluation of heart failure. Echocardiogram done today shows slight improvement of the left ventricular function and mitral regurgitation. PAST MEDICAL HISTORY: 1. 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 2. Embolic CVA. 3. History of severe sepsis with respiratory failure. 4. Right frontal subarachnoid hemorrhage. 5. Bilateral sacroiliitis. 6. Embolic CVA with residual left hemiplegia. 7. Hepatitis C. PAST SURGICAL HISTORY: 1. Discectomy with fusion for discitis. 2. Right parietal brain biopsy. ALLERGIES: NO KNOWN DRUG ALLERGIES. HOME MEDICATIONS: 1. Lasix 10 milligrams p.o. daily. 2. Amoxicillin 500 milligrams p.o. four times a day. 3. Oxycodone 5 milligrams p.o. q. 6 h PRN. 4. Ventolin nebulizers. 5. Potassium chloride tablets 20 milliequivalents p.o. daily. 6. Bumex 1 milligram p.o. twice a day. 7. Baclofen 10 milligrams p.o. q. 8 h. 8. Restoril 15 milligrams p.o. at bedtime PRN 9. Celexa 20 milligrams p.o. daily. 10. Gabapentin 800 milligrams p.o. three times a day. FAMILY HISTORY: Noncontributory. SOCIAL HISTORY: She has history of IV drug use. Denies any IV drug use since October of 2015. REVIEW OF SYSTEMS: Fourteen systems were reviewed and all pertinent positives and negatives as above, otherwise negative. PHYSICAL EXAMINATION: VITAL SIGNS: Temperature 98, respiratory rate 14, heart rate 88, blood pressure 106/64, 02 sat 97% in four liters nasal cannula. GENERAL: She is awake, alert and oriented times three in no acute distress sitting in a chair with mother at bedside. HEAD, EYES, EARS, NOSE, THROAT/NECK: Positive jugular venous distention. No lymphadenopathy. HEART: Normal S1 and S2. Regular rate and rhythm. There is a 2/6 holosystolic murmur noted at the apex. LUNGS: Decreased breath sounds bilaterally with a few bibasilar crackles at the bases. ABDOMEN: The abdomen is soft, nontender and nondistended with positive bowel sounds. EXTREMITIES: There is no cyanosis. Positive edema. LABORATORY DATA: CBC: White count 11.2, hematocrit of 50, platelet count of 178,000. INR 1.5. Chemistries: Sodium 129, potassium 5.7, BUN 16, creatinine 1.19. Lactic acid 8.2 and 6.1. AST 162, ALT 142, alkaline phosphatase 261. BNP 1732. Troponin 0.39. Toxicology negative. IMAGING STUDIES: CT angiogram shows no evidence of PE, bilateral pleural effusions and patchy pulmonary infiltrates identified. Lower extremities: There is no DVT. EKGS: Sinus tachycardia with nonspecific S-T changes. ASSESSMENT AND PLAN: This is a 26-year-old female with the above history and findings, severe left ventricular dysfunction as well as severe aortic insufficiency and mitral regurgitation admitted with acute on chronic systolic heart failure decompensation. She remains afebrile and hemodynamically stable and is doing better from yesterday with adequate diuresis on IV Lasix. At this point, I would advise to continue supportive care for heart failure with IV diuresis, straight input and output, daily weights and low-sodium diet. While here she should be seen by CT surgery for recommendations regarding a surgical plan. Echo done today shows some improvement of LV function and MR nonetheless is still severe and she will still need valve replacement at some point. I understand that the patient has an appointment scheduled for early next week. Thank you for allowing me to take part in the care of this patient. If there are any questions or concerns, please do not hesitate to call me. MD TITUS Garnett/NADEEN /4:02 PM /5:53 PM MILO
[2016-08-30] MEDS: traMADol HCL 50 MG TAB PO PRN (20:15)
[2016-08-30] MEDS: TEMAZEPAM 7.5 MG CAP PO PRN (21:19)
[2016-08-30] MEDS: AZITHROMYCIN INJ 500 MG in SODIUM CHLOR 0.9% 250 ML INJ 250 ML IV SCH (21:20)
[2016-08-31] VITALS (13 sets, daily range): BP systolic 99–128; BP diastolic 53–77; PULSE 88–132; RESP 20–26; TEMP 97.5–98.3; O2SAT 93–100
[2016-08-31] MEDS: CEFEPIME INJ 2,000 MG in SODIUM CHLORIDE 0.9% INJ 100 ML IV SCH ×3 (01:29→16:29)
[2016-08-31] MEDS: MORPHINE SULFATE 4 MG/ML INJ IV PUSH PRN ×7 (01:29→20:46)
[2016-08-31] MEDS: RESP: ALBUTEROL 2.5 MG/IPRATROPIUM 0.5 MG NEB (SCH) NEB ×4 (03:59→21:50)
[2016-08-31] MEDS: CHLORHEXIDINE GLUCONATE 2 % 1 PACK (2 CLOTHS) TOP SCH (04:00)
[2016-08-31] MEDS: FUROSEMIDE 40 MG/4 ML VIAL IV PUSH SCH ×3 (05:11→20:45)
[2016-08-31 06:16] LABS: AUTOMATED NEUTROPHIL # 3.6 TH/MM3 (1.8-7.7); BASOPHIL % 0.7 % (0.0-2.0); EOSINOPHIL # 0.1 TH/MM3 (0-0.4); EOSINOPHIL % 0.9 % (0.0-4.0); HEMATOCRIT 42.4 % (35.0-46.0); LYMPH % 32.7 % (9.0-44.0); MEAN CELL VOLUME 96.5 FL (80.0-100.0); MEAN CORPUSCULAR HEMOGLOBIN 31.4 PG (27.0-34.0); MEAN CORPUSCULAR HGB CONC 32.5 % (32.0-36.0); MONO % 6.2 % (0.0-8.0); NEUT % 59.5 % (16.0-70.0); PLATELET COUNT 94 TH/MM3 (150-450); WHITE BLOOD COUNT 6.1 TH/MM3 (4.0-11.0)
[2016-08-31 06:59] LABS: CALCIUM-PROTEIN CORRECTED 8.2 MG/DL (8.5-10.1); TOTAL BILIRUBIN ADULT 1.4 MG/DL (0.2-1.0)
[2016-08-31 07:31] LABS: HEMO FLAGS AUTO DIFF; PLATELET ESTIMATE SMEAR LOW (NORMAL)
[2016-08-31 07:32] LABS: PLATELET MORPHOLOGY NORMAL (NORMAL); SCAN/DIFF AUTO DIFF CONFIRMED
[2016-08-31 07:34] LABS: POTASSIUM 2.2 MEQ/L (3.5-5.1)
[2016-08-31] MEDS: CHLORHEXIDINE 0.12% (ORAL KIT) 15 ML CUP MT SCH ×2 (08:00→20:00)
[2016-08-31] MEDS: SODIUM CHLORIDE 0.9% FLUSH 5 ML FLUSH IVF SCH ×2 (08:07→20:45)
[2016-08-31] MEDS: ENOXAPARIN SODIUM 40 MG/0.4 ML SYRINGE SQ SCH (08:26)
[2016-08-31] MEDS: PANTOPRAZOLE SODIUM 40 MG VIAL IV SCH (08:26)
[2016-08-31] MEDS ORDERED: MAGNESIUM SULFATE 4 GM PREMIX 100 ML IV ONE (08:30)
[2016-08-31] MEDS ORDERED: POTASSIUM CL 40 MEQ/30 ML LIQ UDC PO ONE (08:30)
[2016-08-31] MEDS: POTASSIUM CHLOR 20 MEQ PREMIX 100 ML IV SCH ×4 (08:46→19:00)
[2016-08-31] MEDS ORDERED: MAGNESIUM SULFATE 4 GM/NS 100 ML IV ONE ×2 (09:00)
--- NOTE | 2016-08-31 09:21 | PD.CAR.PN ---
CVT Progress Note Subjective/Hospital Course: Patient well-known to our service. 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 She has had numerous hospitalizations secondary to complications from the SBE. She is a high-risk surgical candidate secondary to her clinical comorbidities and social behaviors. She has no complaints this morning. Objective: Vital Signs Date Time Temp Pulse Resp B/P Pulse Ox O2 Delivery O2 Flow Rate FiO2 08/31/16 08:12 24 08/31/16 06:00 94 08/31/16 04:00 88 08/31/16 04:00 98.1 88 25 99/62 98 08/31/16 02:00 89 08/31/16 00:00 97.9 97 20 126/77 93 08/31/16 00:00 97 08/30/16 22:00 98 08/30/16 21:21 15 08/30/16 21:09 98 21 08/30/16 20:00 98.7 80 22 102/57 100 08/30/16 20:00 80 08/30/16 18:00 82 08/30/16 18:00 98.5 80 18 107/57 97 08/30/16 16:00 82 08/30/16 16:00 98.5 82 18 95/57 97 08/30/16 15:00 98.3 88 14 106/64 97 08/30/16 14:00 98.3 88 14 113/64 97 08/30/16 14:00 72 08/30/16 13:00 98.3 88 14 92/54 97 08/30/16 12:00 72 08/30/16 12:00 98.3 88 14 89/54 97 08/30/16 11:56 100 Nasal Cannula 4.00 08/30/16 11:40 100 35 08/30/16 10:00 72 Labs: Laboratory Tests Test 08/31/16 05:56 White Blood Count 6.1 TH/MM3 (4.0-11.0) Red Blood Count 4.40 MIL/MM3 (4.00-5.30) Hemoglobin 13.8 GM/DL (11.6-15.3) Hematocrit 42.4 % (35.0-46.0) Mean Corpuscular Volume 96.5 FL (80.0-100.0) Mean Corpuscular Hemoglobin 31.4 PG (27.0-34.0) Mean Corpuscular Hemoglobin 32.5 % Concent (32.0-36.0) Red Cell Distribution Width 21.0 % (11.6-17.2) Platelet Count 94 TH/MM3 (150-450) Mean Platelet Volume 8.8 FL (7.0-11.0) Neutrophils (%) (Auto) 59.5 % (16.0-70.0) Lymphocytes (%) (Auto) 32.7 % (9.0-44.0) Monocytes (%) (Auto) 6.2 % (0.0-8.0) Eosinophils (%) (Auto) 0.9 % (0.0-4.0) Basophils (%) (Auto) 0.7 % (0.0-2.0) Neutrophils # (Auto) 3.6 TH/MM3 (1.8-7.7) Lymphocytes # (Auto) 2.0 TH/MM3 (1.0-4.8) Monocytes # (Auto) 0.4 TH/MM3 (0-0.9) Eosinophils # (Auto) 0.1 TH/MM3 (0-0.4) Basophils # (Auto) 0.0 TH/MM3 (0-0.2) CBC Comment AUTO DIFF Differential Comment AUTO DIFF CONFIRMED Platelet Estimate LOW (NORMAL) Platelet Morphology Comment NORMAL (NORMAL) Sodium Level 138 MEQ/L (136-145) Potassium Level 2.2 MEQ/L (3.5-5.1) Chloride Level 94 MEQ/L (98-107) Carbon Dioxide Level 34.0 MEQ/L (21.0-32.0) Anion Gap 10 MEQ/L (5-15) Blood Urea Nitrogen 10 MG/DL (7-18) Creatinine 0.71 MG/DL (0.50-1.00) Estimat Glomerular Filtration 99 ML/MIN (>89) Rate Random Glucose 78 MG/DL (74-106) Lactic Acid Level 2.3 mmol/L (0.4-2.0) Calcium Level 7.3 MG/DL (8.5-10.1) Protein Corrected Calcium 8.2 MG/DL (8.5-10.1) Total Bilirubin 1.4 MG/DL (0.2-1.0) Direct Bilirubin 0.7 MG/DL (0.0-0.2) Aspartate Amino Transf 63 U/L (15-37) (AST/SGOT) Alanine Aminotransferase 80 U/L (10-53) (ALT/SGPT) Alkaline Phosphatase 169 U/L (45-117) B-Type Natriuretic Peptide 812 PG/ML (0-100) Total Protein 5.5 GM/DL (6.4-8.2) Albumin 2.1 GM/DL (3.4-5.0) Result Diagram: 08/31/16 0556 08/31/16 0556 Imaging: Last Impressions Chest X-Ray 08/29/162034 Signed Impressions: Service Date/Time: Monday, August 29, 2016 20:47 - CONCLUSION: Airspace disease and effusions. Jonny Neal MD CT Angiography 08/29/162034 Signed Impressions: Service Date/Time: Monday, August 29, 2016 22:24 - CONCLUSION: 1. There is no evidence for pulmonary embolism within the main pulmonary arteries. Evaluation of the lower lobe subsegmental branches however is significantly limited and PE cannot be confidently excluded on the basis of this examination. 2. Bilateral pleural effusions and patchy bilateral pulmonary infiltrates are identified. Jonny Neal MD Lower Extremity Ultrasound 08/29/16 0000 Signed Impressions: Service Date/Time: Monday, August 29, 2016 21:13 - CONCLUSION: 1. No evidence for DVT. Jonny Neal MD Cardiovascular: IRR Telemetry: ST with frequent unifocal PVCs Pulmonary: Decreased BS bilat GI/: NABS, NT Plan: This patient presents with class 3 heart failure secondary to AI and MR with decreased LVEF at ~30%. She has been considered for surgery on numerous occasions, but was a poor operative candidate due to ongoing sepsis, drug addiction, embolic sequelae, and overall poor functional status. At this point , there are few if any therapeutic options available, so AVR, possible MVR is recommended with significant reservations. She has been "clean" for approximately a year and has had a recent random tox screen which is also negative. She currently has no indication of active infection or new embolic events. Her surgical risk is very high decisions regarding prosthetic vs mechanical valve prostheses need to be made. I offered her surgery vs palliative care and she would like to proceed with surgical evaluation. Recommend maximal nutrition and PT for ambulation etc prior to surgery next week. Will follow. Ale Meier MD Aug 31, 2016 09:21
--- NOTE | 2016-08-31 10:16 | HHI.IDPN ---
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 Perez) Past Surgical History History of discitis status post ACDF by Dr. 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 Vital Signs Date Time Temp Pulse Resp B/P Pulse Ox O2 Delivery O2 Flow Rate FiO2 08/31/16 08:12 24 08/31/16 06:00 94 08/31/16 04:00 88 08/31/16 04:00 98.1 88 25 99/62 98 08/31/16 02:00 89 08/31/16 00:00 97.9 97 20 126/77 93 08/31/16 00:00 97 08/30/16 22:00 98 08/30/16 21:21 15 08/30/16 21:09 98 21 08/30/16 20:00 98.7 80 22 102/57 100 08/30/16 20:00 80 08/30/16 18:00 82 08/30/16 18:00 98.5 80 18 107/57 97 08/30/16 16:00 82 08/30/16 16:00 98.5 82 18 95/57 97 08/30/16 15:00 98.3 88 14 106/64 97 08/30/16 14:00 98.3 88 14 113/64 97 08/30/16 14:00 72 08/30/16 13:00 98.3 88 14 92/54 97 08/30/16 12:00 72 08/30/16 12:00 98.3 88 14 89/54 97 08/30/16 11:56 100 Nasal Cannula 4.00 08/30/16 11:40 100 35 08/30/16 08/30/16 08/31/16 15:00 23:00 07:00 Intake Total 250 ml 1340 ml 671 ml Output Total 4400 ml 7350 ml 2100 ml Balance -4150 ml -6010 ml -1429 ml Intake Oral 150 ml 800 ml 480 ml IV Total 100 ml 540 ml 191 ml Output Urine Total 4400 ml 7350 ml 2100 ml # Bowel Movements 0 0 . Laboratory Tests Test 08/29/16 08/31/16 20:40 05:56 White Blood Count 11.2 TH/MM3 6.1 TH/MM3 Red Blood Count 5.00 MIL/MM3 4.40 MIL/MM3 Hemoglobin 15.8 GM/DL 13.8 GM/DL Hematocrit 50.0 % 42.4 % Mean Corpuscular Volume 99.9 FL 96.5 FL Mean Corpuscular Hemoglobin 31.6 PG 31.4 PG Mean Corpuscular Hemoglobin 31.7 % 32.5 % Concent Red Cell Distribution Width 21.0 % 21.0 % Platelet Count 178 TH/MM3 94 TH/MM3 Mean Platelet Volume 9.3 FL 8.8 FL Neutrophils (%) (Auto) 50.0 % 59.5 % Lymphocytes (%) (Auto) 42.6 % 32.7 % Monocytes (%) (Auto) 6.0 % 6.2 % Eosinophils (%) (Auto) 0.8 % 0.9 % Basophils (%) (Auto) 0.6 % 0.7 % Neutrophils # (Auto) 5.6 TH/MM3 3.6 TH/MM3 Lymphocytes # (Auto) 4.8 TH/MM3 2.0 TH/MM3 Monocytes # (Auto) 0.7 TH/MM3 0.4 TH/MM3 Eosinophils # (Auto) 0.1 TH/MM3 0.1 TH/MM3 Basophils # (Auto) 0.1 TH/MM3 0.0 TH/MM3 CBC Comment DIFF FINAL AUTO DIFF Differential Comment AUTO DIFF CONFIRMED Platelet Estimate LOW Platelet Morphology Comment NORMAL Laboratory Tests Test 08/29/16 08/30/16 08/30/16 08/31/16 20:40 00:40 20:49 05:56 Sodium Level 129 MEQ/L 138 MEQ/L Potassium Level 5.7 MEQ/L 2.2 MEQ/L Chloride Level 94 MEQ/L 94 MEQ/L Carbon Dioxide Level 21.3 MEQ/L 34.0 MEQ/L Anion Gap 14 MEQ/L 10 MEQ/L Blood Urea Nitrogen 16 MG/DL 10 MG/DL Creatinine 1.19 MG/DL 0.71 MG/DL Estimat Glomerular Filtration 54 ML/MIN 99 ML/MIN Rate Random Glucose 125 MG/DL 78 MG/DL Lactic Acid Level 8.2 mmol/L 6.1 mmol/L 3.3 mmol/L 2.3 mmol/L Calcium Level 8.7 MG/DL 7.3 MG/DL Total Bilirubin 2.0 MG/DL 1.4 MG/DL Aspartate Amino Transf 162 U/L 63 U/L (AST/SGOT) Alanine Aminotransferase 142 U/L 80 U/L (ALT/SGPT) Alkaline Phosphatase 261 U/L 169 U/L Total Creatine Kinase 178 U/L Creatine Kinase MB 0.9 NG/ML Troponin I 0.39 NG/ML B-Type Natriuretic Peptide 1732 PG/ML 812 PG/ML Total Protein 8.0 GM/DL 5.5 GM/DL Albumin 3.1 GM/DL 2.1 GM/DL Protein Corrected Calcium 8.2 MG/DL Direct Bilirubin 0.7 MG/DL Microbiology Date/Time Procedure Status Source Growth 08/29/16 20:40 Aerobic Blood Culture - Preliminary Resulted Blood Peripheral NO GROWTH IN 1 DAY 08/29/16 20:40 Anaerobic Blood Culture - Preliminary Resulted Blood Peripheral NO GROWTH IN 1 DAY 08/29/16 20:45 Aerobic Blood Culture - Preliminary Resulted Blood Peripheral NO GROWTH IN 1 DAY 08/29/16 20:45 Anaerobic Blood Culture - Preliminary Resulted Blood Peripheral NO GROWTH IN 1 DAY 08/30/16 13:30 Legionella Antigen - Final Complete Urine Random Urine PRESUMPTIVE NEGATIVE FOR LEGIONELLA P... 08/30/16 13:30 Streptococcus pneumoniae Antigen (M - Final Complete Urine Random Urine PRESUMPTIVE NEGATIVE FOR STREPTOCOCCU... Imaging Last Impressions Chest X-Ray 08/29/162034 Signed Impressions: Service Date/Time: Monday, August 29, 2016 20:47 - CONCLUSION: Airspace disease and effusions. Jonny Neal MD CT Angiography 12/28/16 2035 Signed Impressions: Service Date/Time: Monday, August 29, 2016 22:24 - CONCLUSION: 1. There is no evidence for pulmonary embolism within the main pulmonary arteries. Evaluation of the lower lobe subsegmental branches however is significantly limited and PE cannot be confidently excluded on the basis of this examination. 2. Bilateral pleural effusions and patchy bilateral pulmonary infiltrates are identified. Jonny Neal MD Lower Extremity Ultrasound 08/29/16 0000 Signed Impressions: Service Date/Time: Monday, August 29, 2016 21:13 - CONCLUSION: 1. No evidence for DVT. Jonny Neal MD Physical Exam GENERAL: awake and alert, looks chronically ill-appearing, looks comfortable at rest SKIN: Cool and dry. No generalized rash, no ecchymosis. No embolic lesions noted. HEENT: [place] conjunctivae, no petechia or hemorrhage. No scleral icterus. Moist oral mucosa. Throat without erythema, or exudate. NECK: Trachea midline. No JVD or lymphadenopathy. Supple, nontender, no meningeal signs. CARDIOVASCULAR: Regular rate and rhythm without gallops, or rubs. Has systolic murmur over L precordium and at base of heart, tachycardic, no rub. RESPIRATORY: . Breath sounds equal bilaterally. Decreased BS at bases GASTROINTESTINAL: Abdomen soft, nondistended, bowel sounds present and normoactive. Has induration of skin on L side of her trunk. No guarding. No rebound. MUSCULOSKELETAL: Extremities without clubbing, or cyanosis, Has violeta LE edema, worse on LLE than on RLE. No joint tenderness, effusion. No calf tenderness. Negative Homans sign bilaterally. NEUROLOGICAL: Awake and alert. Cranial nerves II through XII intact. No movement in her LUE, some movement in her LLE. L side flaccid. Normal speech. PSYCH: Looks depressed, calm and cooperative LINE: PIV with no evidence of infection : Carter cath in place, urine looks clear Assessment & Plan Remarks IMPRESSION Bilateral pulmonary infiltrates, likely pumonary edema due to her severe valvular heart disease from previous IE - ?if with CAP as well since several members of household had respiratory infections recently Hx MV and AV IE, previous ly had MRSA Oct 2015 S/P Rx, and Strep viridans Jun 2016 Previous episodes of PNA Hx MDR PSAE, MRSA infection Previous episode of C diff colitis RECOMMENDATION Change Cefepime to Levaquin Stop Zithromax Continue vancomycin for now Follow C/S If BC negative, give 7 days Levaquin for PNA Monitor progress Dr Castellanos available if needed this Please call ID construction scheduler if BC (+) this I will check patient again Saturday Kenia Parson MD Aug 31, 2016 10:16
[2016-08-31] MEDS ORDERED: MAGNESIUM OXIDE 400 MG TAB PO PRN (11:15)
[2016-08-31] MEDS ORDERED: POTASSIUM CHLOR 20 MEQ PREMIX 100 ML IV PRN ×2 (11:15)
[2016-08-31] MEDS ORDERED: POTASSIUM CL 40 MEQ/30 ML LIQ UDC PO/TUBE PRN ×2 (11:15)
[2016-08-31] MEDS ORDERED: POTASSIUM PHOSPHATE INJ 30 MMOL in SODIUM CHLOR 0.9% 250 ML INJ 250 ML IV PRN (11:15)
[2016-08-31] MEDS ORDERED: POTASSIUM PHOSPHATE MONOBASIC 500 MG TAB PO PRN (11:15)
[2016-08-31] MEDS ORDERED: POTASSIUM CHLOR 40 MEQ PREMIX 100 ML IV PRN (11:15)
[2016-08-31] MEDS ORDERED: MAGNESIUM SULFATE INJ 2 GM in SODIUM CHLORIDE 0.9% INJ 96 ML IV PRN (11:15)
[2016-08-31] MEDS ORDERED: SODIUM PHOSPHATE INJ 30 MMOL in SODIUM CHLOR 0.9% 250 ML INJ 240 ML IV PRN (11:15)
[2016-08-31] MEDS ORDERED: MAGNESIUM SULFATE INJ 4 GM in SODIUM CHLORIDE 0.9% INJ 92 ML IV PRN (11:15)
[2016-08-31] MEDS ORDERED: POTASSIUM PHOSPHATE MONOBASIC 500 MG TAB PO/TUBE PRN (11:15)
--- NOTE | 2016-08-31 11:24 | HHI.CCPN ---
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 status post previous antibiotic therapy who presented to the ER with worsening shortness of breath which has been progressing over the last few months. She was evaluated at her primary care physician's office today and was advised to come to the ER. Patient was noted to be tachycardic with heart rate in the 130s respiratory rate 30s with significant edema on arrival. She was placed on nasal cannula initially however subsequently due to worsening respiratory status was placed on BiPAP. She received Lasix 80 mg IV and weight 1600 cc of urine in the ER. Patient was accepted for admission by critical care medicine service. When I evaluated the patient she was on BiPAP with full facemask, sitting up in the ER stretcher. Subjective: 08/31: diuresed net 10L negative yesterday with tid lasix dosing. on nasal cannula. feels much better. tolerating a diet. cardiac surgery evaluated her and will plan for AVR next week. Objective Vital Signs Date Time Temp Pulse Resp B/P Pulse Ox O2 Delivery O2 Flow Rate FiO2 08/31/16 10:16 95 21 08/31/16 10:00 88 08/31/16 08:12 24 08/31/16 04:00 98.1 99/62 08/30/16 11:56 Nasal Cannula 4.00 Intake and Output 08/30/16 08/30/16 08/31/16 08:00 16:00 00:00 Intake Total 250 ml 1340 ml Output Total 3000 ml 1400 ml 7350 ml Balance -3000 ml -1150 ml -6010 ml Result Diagram: 08/31/16 0556 08/31/16 0556 Other Results Microbiology Date/Time Procedure Status Source Growth 08/30/16 13:30 Legionella Antigen - Final Complete Urine Random Urine PRESUMPTIVE NEGATIVE FOR LEGIONELLA P... 08/30/16 13:30 Streptococcus pneumoniae Antigen (M - Final Complete Urine Random Urine PRESUMPTIVE NEGATIVE FOR STREPTOCOCCU... Imaging Last Impressions Chest X-Ray 08/29/162034 Signed Impressions: Service Date/Time: Monday, August 29, 2016 20:47 - CONCLUSION: Airspace disease and effusions. Jonny Neal MD CT Angiography 08/29/162034 Signed Impressions: Service Date/Time: Monday, August 29, 2016 22:24 - CONCLUSION: 1. There is no evidence for pulmonary embolism within the main pulmonary arteries. Evaluation of the lower lobe subsegmental branches however is significantly limited and PE cannot be confidently excluded on the basis of this examination. 2. Bilateral pleural effusions and patchy bilateral pulmonary infiltrates are identified. Jonny Neal MD Objective Remarks HEENT/Neuro: No pallor or icterus, tongue moist, ISRA, Awake alert oriented 3 , nonfocal grossly, moving all 4 extremities Neck: No JVD Chest/pulmonary: On NC o2., scattered rhonchi/crackles bilaterally, no wheezing , improved from yesterday Cardiovascular: S1-S2 regular no gallop or murmur GI/abdomen: Soft, nontender, bowel sounds present Extremities: Warm bilaterally, bilateral edema A/P Assessment and Plan 26-year-old female with: Acute respiratory failure requiring BiPAP- resolving CHF Possible pneumonia Moderate mitral regurgitation Severe aortic regurgitation Severe Lifethreatening hypokalemia Hyperlactatemia- resolving. 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 tramadol 50mg po q8h prn. Cardiovascular: Elevated BNP. improving. continue diuresis. add diamox 500 q8h x 3 doses. goal 2L negative by AM. Cards: Dr. Kelly following. Dr. Meier' planning on AVR next week. Pulmonary: NC o2. Bronchodilators as needed. Continue diuresis. GI/liver: heart healthy diet as tolerated. diamox for metabolic alkalosis. q8h bmp during aggressive diuresis. Renal/: Strict intake output, monitor and replete elecrolytes, follow BUN/ creatinine. Diurese with Lasix. ID: Started on cefepime/vanc/Zithromax in ER. unlikely to be infectious. will d/ c broad spectrum abx after 48h of negative cultures. Endocrine: Watch for hyperglycemia, SSI for glycemic control if needed. Heme: Follow CBC Prophylaxis: PPI/SCDs/Lovenox. David Lynn MD Aug 31, 2016 11:24
[2016-08-31] MEDS: traMADol HCL 50 MG TAB PO PRN (12:09)
[2016-08-31] MEDS: VANCOMYCIN 1,000 MG/NS 250 ML IV SCH ×2 (12:10)
[2016-08-31 14:01] LABS: BICARBONATE 28.9 MEQ/L (21.0-32.0); MAGNESIUM 3.5 MG/DL (1.5-2.5); POTASSIUM 4.1 MEQ/L (3.5-5.1)
[2016-08-31 14:21] LABS: CALCIUM-PROTEIN CORRECTED 7.8 MG/DL (8.5-10.1)
[2016-08-31] MEDS: SODIUM CHLORIDE 0.9% FLUSH 5 ML FLUSH IVF PRN (16:30)
[2016-08-31] MEDS: AZITHROMYCIN INJ 500 MG in SODIUM CHLOR 0.9% 250 ML INJ 250 ML IV SCH (20:45)
[2016-08-31] MEDS: TEMAZEPAM 7.5 MG CAP PO PRN (21:18)
[2016-08-31] MEDS ORDERED: MIDAZOLAM HCL 5 MG/ML VIAL (1 ML) ONE (22:44)
[2016-08-31] MEDS ORDERED: fentaNYL 2,500 MCG/NS 250 ML IV SCH (22:45)
[2016-08-31] MEDS ORDERED: MIDAZOLAM HCL 5 MG/ML VIAL (1 ML) IV STA (22:52)
[2016-08-31] MEDS ORDERED: MIDAZOLAM 100 MG/NS 100 ML DRIP Premix IV SCH (23:15)
[2016-08-31] MEDS ORDERED: SODIUM CHLOR 0.9% 1000 ML INJ 1,000 ML IV SCH (23:15)
--- NOTE | 2016-08-31 23:29 | RADRPT ---
EXAM DATE/TIME: 08/31/2016 23:01 [facility] COMPARISON: CHEST SINGLE AP, August 29, 2016, 20:47. INDICATIONS : Central line placement, post intubation. MEDICAL HISTORY : Hepatitis C. Endocarditis. SURGICAL HISTORY : None. ENCOUNTER: Subsequent ACUITY: 3 days PAIN SCORE: Non-responsive. LOCATION: Bilateral chest FINDINGS: A single view of the chest demonstrates placement of left subclavian central line with tip in the SVC . No pneumothorax. Endotracheal tube placed with tip 2.5 cm above the cinthya. Nasogastric tube with t ip in the stomach. Bibasilar densities with cardiomegaly and small effusions. CONCLUSION: Cardiomegaly with bibasilar densities and small pleural effusions. Support lines and tubes as describ ed above. Abram Reyes MD on August 31, 2016 at 23:26 Board Certified Radiologist. This report was verified electronically.
[2016-08-31 23:30] LABS: HEMATOCRIT 42.7 % (35.0-46.0); MEAN CELL VOLUME 104.8 FL (80.0-100.0); MEAN CORPUSCULAR HEMOGLOBIN 31.8 PG (27.0-34.0); MEAN CORPUSCULAR HGB CONC 30.3 % (32.0-36.0); PLATELET COUNT 102 TH/MM3 (150-450); RED BLOOD COUNT 4.08 MIL/MM3 (4.00-5.30); RED CELL DISTRIBUTION WIDTH 21.4 % (11.6-17.2); WHITE BLOOD COUNT 9.5 TH/MM3 (4.0-11.0)
[2016-08-31 23:39] LABS: BLOOD GAS VENOUS BASE EXCESS -5.3 mmol/L (-2-2); BLOOD GAS VENOUS HCO3 21 mmol/L (22-26); BLOOD GAS VENOUS O2 CONTENT 11.6 Vol % (9.0-17.0); BLOOD GAS VENOUS O2 HGB SAT 60 % (70-76); BLOOD GAS VENOUS PCO2 54 mmHg (44-48); BLOOD GAS VENOUS PO2 44 mmHg (35-40); BLOOD GAS VENOUS pH 7.22 (7.360-7.400); CRITICAL VALUE YES; DRAW SITE CENTRAL LINE; FIO2 100 %; OXYGEN DEVICE VENTILATOR; STAT YES; TEMP CORR TO 98.6; VENT SETTINGS AC/20/500/5PEEP
[2016-08-31 23:41] LABS: REVIEW FLAG FINAL
[2016-08-31 23:43] LABS: BLOOD GAS BASE EXCESS -8.4 mmol/L (-2-2); BLOOD GAS CARBOXYHEMOGLOBIN 1.7 % (0-4); BLOOD GAS HCO3 17 mmol/L (22-26); BLOOD GAS METHEMOGLOBIN 0.8 % (0-2); BLOOD GAS O2 HGB SATURATION 98 % (90-100); BLOOD GAS OXYGEN CONTENT 19.8 Vol % (12.0-20.0); BLOOD GAS PCO2 38 mmHg (38-42); BLOOD GAS PO2 395 mmHg (61-120); BLOOD GAS TOTAL HGB 13.7 G/DL (12.0-16.0); TEMP CORR TO 98.6
[2016-08-31 23:44] LABS: CRITICAL VALUE YES; DRAW SITE ART LINE; FIO2 100 %; OXYGEN DEVICE VENTILATOR; STAT YES; VENT SETTINGS AC/20/500/PEEP5
[2016-08-31 23:53] LABS: ALKALINE PHOSPHATASE 183 U/L (45-117); ALT (GPT) 76 U/L (10-53); ANION GAP 20 MEQ/L (5-15); AST (GOT) 45 U/L (15-37); BICARBONATE 23.2 MEQ/L (21.0-32.0); BLOOD UREA NITROGEN 11 MG/DL (7-18); CHLORIDE 93 MEQ/L (98-107); CREATINE KINASE 102 U/L (26-192); GLOMERULAR FILTRATION RATE 57 ML/MIN (>89); POTASSIUM 4.7 MEQ/L (3.5-5.1); SODIUM (NA) 136 MEQ/L (136-145)
[2016-09-01] VITALS (19 sets, daily range): BP systolic 103–154; BP diastolic 58–81; PULSE 89–142; RESP 20–27; TEMP 97.1–98.2; O2SAT 94–100
--- NOTE | 2016-09-01 00:10 | PD.PROCEDR ---
Central Line Procedure Date of procedure: 08/31/2016 REASON FOR PROCEDURE Central venous access PROCEDURE PERFORMED Central line placement: Left subclavian vein CONSENT Informed consent for procedure was not obtained as this was an emergent procedure following cardiac arrest ANESTHESIA Local injection of 1% Lidocaine DESCRIPTION OF THE PROCEDURE The patient was placed in supine, mild Trendelenburg position. The area was exposed and cleansed with ChloraPrep, times two. Large sterile drape was used to cover the patient, with the site exposed, under sterile conditions including cap, face mask, sterile gown, and sterile gloves. On single attempt, the introducer needle was inserted with negative pressure in syringe and venous flash was obtained. The guide wire was then advanced without any restriction and the needle was removed. The dilator was used without any complications. Using Seldinger technique, a 20 cm antimicrobial coated triple lumen catheter was advanced over the guide wire to a depth of 18 centimeters. The guide wire was removed. All ports were aspirated with dark venous blood return and flushed easily with sterile saline. All ports were capped. Antibiotic disc was placed around central line at puncture site. The central line was secured to the skin with a stat lock. The area was bandaged with sterile see-through central line bandage. Postprocedure chest x-ray was ordered and reviewed with good placement of central line with tip borderline SVC, no pneumothorax on postprocedure film. COMPLICATIONS: No apparent complications ESTIMATED BLOOD LOSS: 5 cc. Tam Edwards MD Sep 01, 2016 00:10
--- NOTE | 2016-09-01 00:12 | PD.PROCEDR ---
Procedure Note Procedure Date of procedure: 08/31/2016 during ACLS Procedure: Endotracheal intubation Preop diagnosis: Cardiac arrest Postop diagnosis: Same Indication: ACLS protocol Sedation used: None Procedure: Patient went into cardiac arrest (PEA). CPR/ACLS protocol initiated. Patient was preoxygenated with 100% oxygen via Ambu bag with bag mask ventilation, direct laryngoscopy was performed using a Mac 4 blade with good visualization of vocal cords. An 7.5 [place] ET tube was passed through the vocal cords under direct visualization up to the 23 centimeter armando and after inflating cuff of ET tube, correct placement was confirmed using bagging with good color change on CO2 detector, 5 point auscultation and chest rise with ventilation. Patient was connected to mechanical ventilation. Patient tolerated the procedure well with no immediate complications noted. Postprocedure chest x-ray was ordered. Tam Edwards MD Sep 01, 2016 00:12
--- NOTE | 2016-09-01 00:14 | PD.PROCEDR ---
Procedure Note Procedure Procedure: CPR Preoperative diagnosis: PEA Postoperative diagnosis: Same Responded to collect patient unresponsive with no palpable pulse and recordable blood pressure following a large bowel movement. CPR/ACLS protocol initiated. Patient noted to be in PEA. Patient had return of spontaneous circulation following 2 rounds of epinephrine and intubation during ACLS protocol. Started on Levophed following ROSC and maintaining blood pressure. Please see ACLS code sheet for details. Tam Edwards MD Sep 01, 2016 00:14
[2016-09-01 00:19] LABS: CKMB 1.8 NG/ML (0.5-3.6)
--- NOTE | 2016-09-01 00:32 | HHI.PR ---
Addendum to Inpatient Note Addendum Reason: Additional Documentation Additional Information Patient was doing fine on 2 L nasal cannula to this evening and had diabetes about 11+ liters over the last 24 hours. She had a large bowel movement and then became unresponsive with no palpable pulse. She was noted to be in PEA. I arrived to patient's bedside immediately on being notified. CPR/ACLS protocol initiated. Patient was emergently intubated and subsequently had return of spontaneous circulation after about 8 minutes of CPR. She had good air entry bilaterally with scattered rhonchi, no wheezing or crackles post intubation. I emergently placed her left subclavian central line, a line was placed by RT. Patient was on about 10 mics of Levophed following CPR however it was being titrated down. CVP 14, blood pressure by A-line 120s systolic. ABG post code pH 7.27 PCO2 37.6, PO2 395, O2 sat 97.8%. Venous blood gas with pH 7.21, PCO2 54.3, PO2 44.1, O2 sat 60.4%. Chest x-ray which was personally reviewed showed ET tube above cinthya, left subclavian central line with tip overlying SVC among no pneumothorax, minimal pulmonary edema involving right lung field which actually appeared improved compared to prior chest x-ray, OG tube in place. Stat labs ordered and were reviewed as follows. Laboratory Tests Test 08/31/16 08/31/16 08/31/16 08/31/16 05:56 13:15 22:49 23:20 White Blood Count 6.1 TH/MM3 9.5 TH/MM3 Red Blood Count 4.40 MIL/MM3 4.08 MIL/MM3 Hemoglobin 13.8 GM/DL 13.0 GM/DL Hematocrit 42.4 % 42.7 % Mean Corpuscular Volume 96.5 FL 104.8 FL Mean Corpuscular Hemoglobin 31.4 PG 31.8 PG Mean Corpuscular Hemoglobin 32.5 % 30.3 % Concent Red Cell Distribution Width 21.0 % 21.4 % Platelet Count 94 TH/MM3 102 TH/MM3 Mean Platelet Volume 8.8 FL 9.3 FL Neutrophils (%) (Auto) 59.5 % Lymphocytes (%) (Auto) 32.7 % Monocytes (%) (Auto) 6.2 % Eosinophils (%) (Auto) 0.9 % Basophils (%) (Auto) 0.7 % Neutrophils # (Auto) 3.6 TH/MM3 Lymphocytes # (Auto) 2.0 TH/MM3 Monocytes # (Auto) 0.4 TH/MM3 Eosinophils # (Auto) 0.1 TH/MM3 Basophils # (Auto) 0.0 TH/MM3 CBC Comment AUTO DIFF Differential Comment AUTO DIFF CONFIRMED Platelet Estimate LOW Platelet Morphology Comment NORMAL Sodium Level 138 MEQ/L 135 MEQ/L 136 MEQ/L Potassium Level 2.2 MEQ/L 4.1 MEQ/L 4.7 MEQ/L Chloride Level 94 MEQ/L 95 MEQ/L 93 MEQ/L Carbon Dioxide Level 34.0 MEQ/L 28.9 MEQ/L 23.2 MEQ/L Anion Gap 10 MEQ/L 11 MEQ/L 20 MEQ/L Blood Urea Nitrogen 10 MG/DL 9 MG/DL 11 MG/DL Creatinine 0.71 MG/DL 0.81 MG/DL 1.14 MG/DL Estimat Glomerular Filtration 99 ML/MIN 85 ML/MIN 57 ML/MIN Rate Random Glucose 78 MG/DL 150 MG/DL 282 MG/DL Lactic Acid Level 2.3 mmol/L Calcium Level 7.3 MG/DL 7.2 MG/DL 10.3 MG/DL Protein Corrected Calcium 8.2 MG/DL 7.8 MG/DL Total Bilirubin 1.4 MG/DL 1.0 MG/DL Direct Bilirubin 0.7 MG/DL Aspartate Amino Transf 63 U/L 45 U/L (AST/SGOT) Alanine Aminotransferase 80 U/L 76 U/L (ALT/SGPT) Alkaline Phosphatase 169 U/L 183 U/L B-Type Natriuretic Peptide 812 PG/ML Total Protein 5.5 GM/DL 6.0 GM/DL 5.7 GM/DL Albumin 2.1 GM/DL 2.2 GM/DL Magnesium Level 3.5 MG/DL 3.0 MG/DL Phosphorus Level 4.8 MG/DL Total Creatine Kinase 102 U/L Troponin I 0.34 NG/ML Test 08/31/16 08/31/16 23:25 23:30 Blood Gas Puncture Site ART LINE CENTRAL LINE Blood Gas Patient Temperature 98.6 98.6 Blood Gas HCO3 17 mmol/L Blood Gas Base Excess -8.4 mmol/L Blood Gas Oxygen Saturation 98 % Arterial Blood pH 7.28 Arterial Blood Partial 38 mmHg Pressure CO2 Arterial Blood Partial 395 mmHg Pressure O2 Arterial Blood Oxygen Content 19.8 Vol % Arterial Blood 1.7 % Carboxyhemoglobin Arterial Blood Methemoglobin 0.8 % Blood Gas Hemoglobin 13.7 G/DL Oxygen Delivery Device VENTILATOR VENTILATOR Blood Gas Ventilator Setting AC/20/500/PEEP5 AC/20/500/5PEEP Blood Gas Inspired Oxygen 100 % 100 % Venous Blood pH 7.22 Venous Blood Partial Pressure 54 mmHg CO2 Venous Blood Partial Pressure 44 mmHg O2 Venous Blood HCO3 21 mmol/L Venous Blood Oxygen Saturation 60 % Venous Blood Oxygen Content 11.6 Vol % Venous Blood Base Excess -5.3 mmol/L Hyperlactatemia expected following cardiac arrest. This should improve. Levophed being titrated down. Neurologic status following 8 minutes of CPR was for the patient was minimally responsive however not opening eyes. Pupils 3 mm bilaterally sluggish, not responding to painful stimuli. Started on fentanyl gtt. for vent synchrony. PEA arrest status post CPR Hypotension - probably cardiogenic shock Acute respiratory failure on mechanical ventilation Hyperlactatemia following cardiac arrest Possible anoxic encephalopathy Plan to continue sedation with fentanyl, daily sedation vacation. Follow neuro status. Consider Head CT/EEG in a.m. if no improvement in neurologic status. Airway pressures are not elevated on mechanical ventilation with peak pressure 13-18. C Pap trials in a.m. if neurologic status improved. Plan to repeat echo in a.m. Hold Lasix and Diamox in view of hypotension. Started NS @ 100 cc an hour. Follow urine output/CVP. Possible PE (recent CT pulmonary angiogram negative). Time spent on critical care excluding procedures 30 minutes Tam Edwards MD Sep 01, 2016 00:32
[2016-09-01] MEDS: CEFEPIME INJ 2,000 MG in SODIUM CHLORIDE 0.9% INJ 100 ML IV SCH ×3 (02:25→15:04)
--- NOTE | 2016-09-01 03:43 | RADRPT ---
EXAM DATE/TIME: 09/01/2016 03:23 [facility] COMPARISON: MRI BRAIN W & W/O CONTRAST, August 13, 2016, 11:17. CT BRAIN W/O CONTRAST, August 12, 2016, 21: 36. INDICATIONS : Status post pulseless electrical activity arreast. Encephalopathy. RADIATION DOSE: 45.47 CTDIvol (mGy) MEDICAL HISTORY : Hypertension. Hepatitis C. Cerebrovascular disease. SURGICAL HISTORY : None. ENCOUNTER: Subsequent ACUITY: 1 month PAIN SCALE: Non-responsive LOCATION: cranial TECHNIQUE: Multiple contiguous axial images were obtained of the head. Using automated exposure control and adj ustment of the mA and/or kV according to patient size, radiation dose was kept as low as reasonably a chievable to obtain optimal diagnostic quality images. FINDINGS: CEREBRUM: Areas of low density are seen throughout the right parietal and to a lesser degree left parietal lobe , unchanged. The ventricles are normal for age. No evidence of midline shift, mass lesion, hemorrhag e or acute infarction. No extra-axial fluid collections are seen. POSTERIOR FOSSA: The cerebellum and brainstem are intact. The 4th ventricle is midline. The cerebellopontine angle i s unremarkable. EXTRACRANIAL: The visualized portion of the orbits is intact. SKULL: The calvaria is intact. No evidence of skull fracture. CONCLUSION: Stable CT brain with unchanged areas of low attenuation more notably within the right middle lobe. Th josé are likely related to areas of old infarction. No acute intracranial abnormality. Abram Reyes MD on September 01, 2016 at 3:39 Board Certified Radiologist. This report was verified electronically.
[2016-09-01] MEDS: CHLORHEXIDINE GLUCONATE 2 % 1 PACK (2 CLOTHS) TOP SCH (03:49)
[2016-09-01] MEDS: RESP: ALBUTEROL 2.5 MG/IPRATROPIUM 0.5 MG NEB (SCH) NEB ×4 (04:03→22:06)
[2016-09-01] MEDS ORDERED: SODIUM BICARBONATE 8.4% INJ 50 MEQ/50 ML SYR IV ONE (05:00)
[2016-09-01] MEDS ORDERED: EPINEPHrine HCL (1:10,000) 1 MG/10 ML SYRINGE IV ONE (05:00)
[2016-09-01] MEDS ORDERED: CALCIUM CHLORIDE 10% SOLN 1 GRAM/10 ML SYR IV ONE (05:00)
[2016-09-01] MEDS ORDERED: PHARMACY ORDERED LAB XX ONE (05:45)
[2016-09-01] MEDS: VANCOMYCIN 1,000 MG/NS 250 ML IV SCH ×2 (06:00)
[2016-09-01 06:01] LABS: BICARBONATE 29.1 MEQ/L (21.0-32.0); MAGNESIUM 2.2 MG/DL (1.5-2.5); VANCOMYCIN TROUGH 18.1 MCG/ML (5.0-10.0)
[2016-09-01 06:05] LABS: POTASSIUM 2.5 MEQ/L (3.5-5.1)
[2016-09-01] MEDS ORDERED: POTASSIUM CHLOR 40 MEQ PREMIX 100 ML IV ONE (06:15)
[2016-09-01] MEDS: POTASSIUM CHLOR 40 MEQ PREMIX 100 ML IV PRN ×2 (06:24→06:25)
--- NOTE | 2016-09-01 09:37 | HHI.CCPN ---
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 status post previous antibiotic therapy who presented to the ER with worsening shortness of breath which has been progressing over the last few months. She was evaluated at her primary care physician's office today and was advised to come to the ER. Patient was noted to be tachycardic with heart rate in the 130s respiratory rate 30s with significant edema on arrival. She was placed on nasal cannula initially however subsequently due to worsening respiratory status was placed on BiPAP. She received Lasix 80 mg IV and weight 1600 cc of urine in the ER. Patient was accepted for admission by critical care medicine service. When I evaluated the patient she was on BiPAP with full facemask, sitting up in the ER stretcher. Subjective: 08/31: diuresed net 10L negative yesterday with tid lasix dosing. on nasal cannula. feels much better. tolerating a diet. cardiac surgery evaluated her and will plan for AVR next week. 09/01: doing well yesterday afternoon, and was planning on transferring to hospitalist service and floor today. however, at 22:20, sustained a cardiac arrest. reviewing telemetry, it appears she went into unstable V Tach which then converted into a PEA arrest. CPR was performed for approximately 8 minutes with 2 rounds of epinephrine after which ROSC was obtained. She was emergently intubated and central line/art line were placed. This morning, she is off vasopressors, not hypoxic. she is starting to arouse and is briskly purposeful, although not following commands. Her electrolytes were aggressively replaced yesterday for severe hypokalemia, although her recheck potassium was normal. This morning, her K is again severely low. I have seen the patient and have ordered a STAT CT pulmonary angiogram. She had a negative CT PE done on 08/29 along with a negative LE u/s for DVT. Objective Vital Signs Date Time Temp Pulse Resp B/P Pulse Ox O2 Delivery O2 Flow Rate FiO2 09/01/16 07:25 100 40 09/01/16 06:00 89 09/01/16 04:00 97.8 20 109/81 116/63 08/30/16 11:56 Nasal Cannula 4.00 Intake and Output 12/08/31/16 08/31/16 07:59 15:59 23:59 Intake Total 671 ml 1427 ml Output Total 2100 ml 2350 ml Balance -1429 ml -923 ml Result Diagram: 08/31/16 2320 09/01/16 0415 Other Results Microbiology Date/Time Procedure Status Source Growth 08/30/16 13:30 Legionella Antigen - Final Complete Urine Random Urine PRESUMPTIVE NEGATIVE FOR LEGIONELLA P... 08/30/16 13:30 Streptococcus pneumoniae Antigen (M - Final Complete Urine Random Urine PRESUMPTIVE NEGATIVE FOR STREPTOCOCCU... Laboratory Tests Test 08/31/16 08/31/16 23:25 23:30 Blood Gas Puncture Site ART LINE CENTRAL LINE Blood Gas Patient Temperature 98.6 98.6 Blood Gas HCO3 17 mmol/L (22-26) Blood Gas Base Excess -8.4 mmol/L (-2-2) Blood Gas Oxygen Saturation 98 % (90-100) Arterial Blood pH 7.28 (7.380-7.420) Arterial Blood Partial 38 mmHg (38-42) Pressure CO2 Arterial Blood Partial 395 mmHg Pressure O2 (61-120) Arterial Blood Oxygen Content 19.8 Vol % (12.0-20.0) Arterial Blood 1.7 % (0-4) Carboxyhemoglobin Arterial Blood Methemoglobin 0.8 % (0-2) Blood Gas Hemoglobin 13.7 G/DL (12.0-16.0) Oxygen Delivery Device VENTILATOR VENTILATOR Blood Gas Ventilator Setting AC/20/500/PEEP5 AC/20/500/5PEEP Blood Gas Inspired Oxygen 100 % 100 % Venous Blood pH 7.22 (7.360-7.400) Venous Blood Partial Pressure 54 mmHg (44-48) CO2 Venous Blood Partial Pressure 44 mmHg (35-40) O2 Venous Blood HCO3 21 mmol/L (22-26) Venous Blood Oxygen Saturation 60 % (70-76) Venous Blood Oxygen Content 11.6 Vol % (9.0-17.0) Venous Blood Base Excess -5.3 mmol/L (-2-2) Imaging Last Impressions Chest X-Ray 08/29/162034 Signed Impressions: Service Date/Time: Monday, August 29, 2016 20:47 - CONCLUSION: Airspace disease and effusions. Jonny Neal MD CT Angiography 08/29/162034 Signed Impressions: Service Date/Time: Monday, August 29, 2016 22:24 - CONCLUSION: 1. There is no evidence for pulmonary embolism within the main pulmonary arteries. Evaluation of the lower lobe subsegmental branches however is significantly limited and PE cannot be confidently excluded on the basis of this examination. 2. Bilateral pleural effusions and patchy bilateral pulmonary infiltrates are identified. Jonny Neal MD Objective Remarks GENERAL: Young female, lying in bed, intubated, critically ill HEENT: Pupils are equal, 2 mm, reactive, conjugate. Mucous membranes are moist. NECK: Trachea is midline. There is a left subclavian triple-lumen catheter, site is clean, dressing intact. CHEST: Equal chest rise. PRVC 500/20/5/40%. clear to auscultation. CARDIOVASCULAR: normal rate, regular rhythm. off norepi currently. ABDOMEN: Soft, nontender, nondistended. No guarding. MUSCULOSKELETAL: 1+ pitting edema. Distal pulses are 2+. NEUROLOGICAL: RASS -2. CAM +. Withdraws to pain. Briskly purposeful. Does not follow commands. Opens eyes spontaneously and to voice. Does not track. A/P Assessment and Plan Assessment: This is a 26-year-old female with history of endocarditis status post appropriate therapy and subsequently with severe aortic regurgitation, moderate mitral regurgitation, severe biventricular dysfunction. She was initially admitted with congestive heart failure exacerbation and acute volume overload. She is status post 10 L diuresis and from a restaurant standpoint had improved to the point of transferring out of the ICU. Her course is now complicated by V. tach and PEA arrest. It is unclear what her arrest was secondary to. It certainly possible that she has a PE, although she is not hypoxic and now off pressors, so a PE large enough to cause PEA arrest is unlikely. Even her history of same morning of hypokalemia, this could've been electrolyte mediated ventricular dysrhythmia, although her laboratory data would suggest that her electrolytes were within normal limits. This morning I performed critical care bedside ultrasound which demonstrated again her severe biventricular dysfunction and again severe aortic regurg. Her IVC was 2 cm dilated without any respiratory variation. There is no pericardial effusion. From a hemodynamic standpoint, I think she is euvolemic to hypervolemic. We will stop her maintenance fluids. I have ordered Lovenox 1.5 mg/kg subcutaneous empirically for possible PE, and i have ordered a stat CT pulmonary angiogram. From respiratory standpoint we will leave her on full mechanical support until her recent cardiac arrest is been investigated and we have a better idea of the cause. If everything is negative, we will work towards weaning the ventilator with plan of extubating when she is ready. Her head CT is negative at this point. We will perform every hour neuro checks and if she does not have meaningful improvement in the next 24 hours, we will follow this up with MRI and EEG. Certainly with her prior medical comorbidities , and now with her acute cardiac arrest, she is very critically ill at this time. Plan by systems: Neurologic: Possible hypoxic ischemic encephalopathy Chronic pain IV drug abuse History of CVA with residual left-sided weakness Fentanyl as needed for vent synchrony and sedation Goal RASS -2 Every hour neuro checks CT head 09/01 negative acute in 24 hours if encephalopathy persists we will follow this up with MRI and EEG Respiratory: Acute hypoxic and hypercarbic respiratory failure Possible pulmonary embolism Follow-up stat CT PE Vent bundle Head of bed 30 Wean FiO2 for goal SPO2 greater than 90% Cardiovascular: Possible pulmonary embolism Status post PEA arrest Severe aortic insufficiency 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 Kelly Cardiac surgery following: Dr. Meier. Plan was for aortic valve replacement next week. This made need to be put on hold given her acute decompensation Renal: Every hour urine outputs and strict I's and O's in the setting of recent arrest. She is at high risk for acute kidney injury. -- Strict I/Os FEN/GI: Acute intravascular volume overload Acute life-threatening hypokalemia Acute protein calorie malnutritionmoderate Saline lock IV fluids ICU electrolyte protocol Aggressively replace potassium We'll recheck potassium this afternoon As long she remains off vasopressors, we will start tube feeding to mitigate malnutrition We will hold on diuresis for now. If her CT pulmonary injury from his negative and she remains stable, we will resume diuresis. Daily BMP Heme/ID: History of nonocclusive left femoral vein DVT 08/20 History of MRSA endocarditis Possible healthcare associated pneumonia Cultures have been negative 48 hours. I will discuss with ID possibility of discontinuing broad-spectrum antibiotics Lovenox 1.5 mg/kg subcutaneous every 24 hours (100 mg) Daily CBC Endocrine: Hyperglycemia of critical illness -- SSI, every 6 hours, medium scale Prophylaxis: GI Prophylaxis Protonix 40 mg IV daily 24 hours DVT Prophylaxis -- SCDs Therapeutic Lovenox Lines: 09/01 left subclavian triple-lumen catheter 09/01 right radial arterial line Carter Dispo: Remain in the ICU. She is very critically ill. Critical care medicine will continue to follow her. This patient remains critically ill with one or more organ systems which are or may become a threat to life. I have spent in excess of 48 minutes discontinuously in the care and management of this patient. This time is exclusive of procedures, and includes, but is not limited to, evaluation of the patient, review of the medical record, discussions with family, consultants, nursing staff, or respiratory therapy, and documentation in the medical record. David Lynn MD Sep 01, 2016 09:37
--- NOTE | 2016-09-01 09:50 | PD.CAR.PN ---
CVT Progress Note Subjective/Hospital Course: Patient well-known to our service. 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 She has had numerous hospitalizations secondary to complications from the SBE. She is a high-risk surgical candidate secondary to her clinical comorbidities and social behaviors. She has no complaints this morning. 09/01/16 Events overnight noted with cardiac arrest, CPR, etc Patient intubated on vent Objective: Vital Signs Date Time Temp Pulse Resp B/P Pulse Ox O2 Delivery O2 Flow Rate FiO2 09/01/16 07:25 100 40 09/01/16 06:00 89 09/01/16 04:01 100 50 09/01/16 04:00 97.8 91 20 109/81 100 116/63 09/01/16 04:00 91 09/01/16 03:20 100 100 09/01/16 02:00 90 09/01/16 00:00 98.2 109 21 118/68 100 121/68 09/01/16 00:00 109 08/31/16 22:15 100 100 08/31/16 22:00 132 08/31/16 21:50 100 21 08/31/16 20:00 97.5 117 26 128/53 97 08/31/16 20:00 117 08/31/16 14:00 118 08/31/16 12:00 98.3 120 24 108/61 96 08/31/16 12:00 121 08/31/16 10:16 95 21 08/31/16 10:00 88 Labs: Laboratory Tests Test 08/31/16 08/31/16 08/31/16 08/31/16 22:49 23:20 23:25 23:30 Sodium Level 136 MEQ/L (136-145) Potassium Level 4.7 MEQ/L (3.5-5.1) Chloride Level 93 MEQ/L (98-107) Carbon Dioxide Level 23.2 MEQ/L (21.0-32.0) Anion Gap 20 MEQ/L (5-15) Blood Urea Nitrogen 11 MG/DL (7-18) Creatinine 1.14 MG/DL (0.50-1.00) Estimat Glomerular Filtration 57 ML/MIN (>89) Rate Random Glucose 282 MG/DL (74-106) Lactic Acid Level 14.3 mmol/L (0.4-2.0) Calcium Level 10.3 MG/DL (8.5-10.1) Phosphorus Level 4.8 MG/DL (2.5-4.9) Magnesium Level 3.0 MG/DL (1.5-2.5) Total Bilirubin 1.0 MG/DL (0.2-1.0) Aspartate Amino Transf 45 U/L (15-37) (AST/SGOT) Alanine Aminotransferase 76 U/L (10-53) (ALT/SGPT) Alkaline Phosphatase 183 U/L (45-117) Total Creatine Kinase 102 U/L (26-192) Creatine Kinase MB 1.8 NG/ML (0.5-3.6) Troponin I 0.34 NG/ML (0.02-0.05) Total Protein 5.7 GM/DL (6.4-8.2) Albumin 2.2 GM/DL (3.4-5.0) White Blood Count 9.5 TH/MM3 (4.0-11.0) Red Blood Count 4.08 MIL/MM3 (4.00-5.30) Hemoglobin 13.0 GM/DL (11.6-15.3) Hematocrit 42.7 % (35.0-46.0) Mean Corpuscular Volume 104.8 FL (80.0-100.0) Mean Corpuscular Hemoglobin 31.8 PG (27.0-34.0) Mean Corpuscular Hemoglobin 30.3 % Concent (32.0-36.0) Red Cell Distribution Width 21.4 % (11.6-17.2) Platelet Count 102 TH/MM3 (150-450) Mean Platelet Volume 9.3 FL (7.0-11.0) Blood Gas Puncture Site ART LINE CENTRAL LINE Blood Gas Patient Temperature 98.6 98.6 Blood Gas HCO3 17 mmol/L (22-26) Blood Gas Base Excess -8.4 mmol/L (-2-2) Blood Gas Oxygen Saturation 98 % (90-100) Arterial Blood pH 7.28 (7.380-7.420) Arterial Blood Partial 38 mmHg (38-42) Pressure CO2 Arterial Blood Partial 395 mmHg Pressure O2 (61-120) Arterial Blood Oxygen Content 19.8 Vol % (12.0-20.0) Arterial Blood 1.7 % (0-4) Carboxyhemoglobin Arterial Blood Methemoglobin 0.8 % (0-2) Blood Gas Hemoglobin 13.7 G/DL (12.0-16.0) Oxygen Delivery Device VENTILATOR VENTILATOR Blood Gas Ventilator Setting AC/20/500/PEEP5 AC/20/500/5PEEP Blood Gas Inspired Oxygen 100 % 100 % Venous Blood pH 7.22 (7.360-7.400) Venous Blood Partial Pressure 54 mmHg (44-48) CO2 Venous Blood Partial Pressure 44 mmHg (35-40) O2 Venous Blood HCO3 21 mmol/L (22-26) Venous Blood Oxygen Saturation 60 % (70-76) Venous Blood Oxygen Content 11.6 Vol % (9.0-17.0) Venous Blood Base Excess -5.3 mmol/L (-2-2) Test 09/01/16 04:15 Sodium Level 140 MEQ/L (136-145) Potassium Level 2.5 MEQ/L (3.5-5.1) Chloride Level 98 MEQ/L (98-107) Carbon Dioxide Level 29.1 MEQ/L (21.0-32.0) Anion Gap 13 MEQ/L (5-15) Blood Urea Nitrogen 12 MG/DL (7-18) Creatinine 0.87 MG/DL (0.50-1.00) Estimat Glomerular Filtration 78 ML/MIN (>89) Rate Random Glucose 163 MG/DL (74-106) Calcium Level 8.2 MG/DL (8.5-10.1) Magnesium Level 2.2 MG/DL (1.5-2.5) B-Type Natriuretic Peptide 1302 PG/ML (0-100) Vancomycin Level Trough 18.1 MCG/ML (5.0-10.0) Result Diagram: 08/31/16 2320 09/01/16 0415 Imaging: Last Impressions Head CT 09/01/16 0000 Signed Impressions: Service Date/Time: Thursday, September 01, 2016 03:23 - CONCLUSION: Stable CT brain with unchanged areas of low attenuation more notably within the right middle lobe. These are likely related to areas of old infarction. No acute intracranial abnormality. Abram Reyes MD Chest X-Ray 08/31/16 0000 Signed Impressions: Service Date/Time: Wednesday, August 31, 2016 23:01 - CONCLUSION: Cardiomegaly with bibasilar densities and small pleural effusions. Support lines and tubes as described above. Abram Reyes MD CT Angiography 08/29/162034 Signed Impressions: Service Date/Time: Monday, August 29, 2016 22:24 - CONCLUSION: 1. There is no evidence for pulmonary embolism within the main pulmonary arteries. Evaluation of the lower lobe subsegmental branches however is significantly limited and PE cannot be confidently excluded on the basis of this examination. 2. Bilateral pleural effusions and patchy bilateral pulmonary infiltrates are identified. Jonny Neal MD Lower Extremity Ultrasound 08/29/16 0000 Signed Impressions: Service Date/Time: Monday, August 29, 2016 21:13 - CONCLUSION: 1. No evidence for DVT. Jonny Neal MD Cardiovascular: RRR Telemetry: NSR Plan: Patient experienced cardiac arrest last night. Unsure as to etiology except significant hypokalemia. Not an operative candidate currently, but I will schedule if she recovers from this event. Recommend repeat ECHO in 1-2 days Discussed with Ale Mcnamara MD Sep 01, 2016 09:50
[2016-09-01] MEDS ORDERED: IOHEXOL 350 MG/ML 10 ML VIAL (for RAD DIAG) IV ONE (10:38)
--- NOTE | 2016-09-01 10:43 | RADRPT ---
EXAM DATE/TIME: 09/01/2016 10:23 [facility] COMPARISON: CT PULMONARY ANGIOGRAM, August 29, 2016, 22:24. INDICATIONS : Evaluate for pulmonary embolism. IV CONTRAST: 62 cc Omnipaque 350 (iohexol) IV RADIATION DOSE: 12.24 CTDIvol (mGy) MEDICAL HISTORY : Hepatitis C. Carcinoma, anal. Stroke. SURGICAL HISTORY : cervical fusion. ENCOUNTER: Initial ACUITY: 1 day PAIN SCALE: 0/10 LOCATION: chest TECHNIQUE: Volumetric scanning of the chest was performed using a pulmonary embolism protocol MIP images were re constructed. Using automated exposure control and adjustment of the mA and/or kV according to patien t size, radiation dose was kept as low as reasonably achievable to obtain optimal diagnostic quality images. FINDINGS: Endotracheal tube tip terminates just above the cinthya. NG tube extends into the stomach. There is co nsolidation within both lower lobes and patchy left upper lobe and right upper lobe airspace disease. Bilateral pleural effusions are present. On the current examination there is evidence of thrombus wi thin the right lower lobe arterial branches there is thrombus also seen within left lower lobe branch es. CONCLUSION: 1. Bilateral consolidation and effusions. 2. Bilateral lower lobe pulmonary emboli. Jonny Neal MD on September 01, 2016 at 10:40 Board Certified Radiologist. This report was verified electronically.
[2016-09-01] MEDS: CHLORHEXIDINE 0.12% (ORAL KIT) 15 ML CUP MT SCH ×2 (13:26→20:00)
[2016-09-01] MEDS: SODIUM CHLORIDE 0.9% FLUSH 5 ML FLUSH IVF SCH ×2 (13:27→20:43)
[2016-09-01] MEDS: PANTOPRAZOLE SODIUM 40 MG VIAL IV SCH (13:27)
[2016-09-01] MEDS: ENOXAPARIN SODIUM 100 MG/ML SYRINGE SQ SCH (13:27)
[2016-09-01 16:46] LABS: BICARBONATE 28.7 MEQ/L (21.0-32.0); MAGNESIUM 2.1 MG/DL (1.5-2.5); POTASSIUM 5.1 MEQ/L (3.5-5.1)
--- NOTE | 2016-09-01 17:04 | MB ---
cc: ADAL VILLA M.D. DATE OF CONSULTATION: 09/01/2016 CHIEF COMPLAINT Status post VF arrest. HISTORY OF PRESENT ILLNESS The patient is a 26-year-old, white, female who I am asked to see in re-consultation. She was actually seen two days ago by Dr. Kelly and has remained in hospital. She has a long complex history of mitral and aortic insufficiency with an associated cardiomyopathy. This is on the basis of endocarditis and has been complicated by congestive heart failure and an embolic cerebrovascular accident. She has not been offered surgery as she has continued to test positive for IV drug use and with ongoing positive drug screens the risk was felt to be prohibitive. She does have a history of discitis in the past. She presented to the hospital again with congestive failure. She initially responded to diuresis but at 9:19 last p.m. she developed initially a ventricular tachycardia and then a torsade type dysrhythmia. That eventually broke to a sinus rhythm but she was pulseless with that rhythm and underwent cardiopulmonary resuscitation at 22:20 for a PEA protocol to which she quickly responded. She has been reintubated. At present she is following commands but remains confused. She is not really able to answer any specific questions. I am asked to see her primarily for cardiovascular followup although the only specific therapy we have to offer other than what is being done is a valve replacement and she is already being followed daily by Dr. Meier with the thoracic surgical group. She is presently in no distress. PHYSICAL EXAMINATION GENERAL: On general inspection, she is an intubated somewhat confused lady lying in bed in no distress. VITAL SIGNS: Vital signs reveal a blood pressure of 119/58, a pulse of 110, respirations of 22, the patient is afebrile. Saturations are 100% on 40% oxygen. HEENT/NECK: Unremarkable for the patient's age. LUNGS: Clear anteriorly. CARDIOVASCULAR: A regular rate and rhythm. Minimal systolic murmur. S1 and S2 are unremarkable. ABDOMEN: Soft without masses, tenderness, organomegaly. Bowel sounds within normal limits. GENITAL/RECTAL: Deferred. EXTREMITIES: No cyanosis, clubbing or edema. NEUROLOGIC: Not readily tested. LABORATORY DATA CBC is unremarkable. The hematocrit is 42.7%, white count is 9500, platelets are borderline at 102,000. BNP is 1302 which is actually down from admission. Potassium this morning was 2.5. Magnesium yesterday was 3.0 post arrest and the potassium was 4.7. INR on admission was 1.5. IMAGING CT angiography shows questionable peripheral pulmonary emboli but no central findings. She is however presently actively anticoagulated and being managed for pulmonary emboli. CT scan also suggests effusions and consolidation. Chest x-ray yesterday after central line placement shows bibasilar infiltrates with small bilateral effusion. Echocardiogram done 08/10/16 shows an ejection fraction of 30-35%. The left ventricular cavity is dilated, moderate to severe mitral insufficiency, there is moderate aortic regurgitation. ASSESSMENT AND PLAN Essentially this patient with ongoing treatment for endocarditis and a history of an embolic stroke has a fairly advanced cardiomyopathy associated with valvular heart disease. Because of the aortic insufficiency, she really is just a candidate for medical therapy and balloon pumping would be counter indicated should she become hypotensive. Her event last night appears to be a primary arrhythmic event. I would therefore leave her in the ICU. She is presently not a candidate for an implantable device in the setting of ongoing infection. We do need to be careful to control her electrolytes again with the initiation of this event appearing to be ventricular tachycardia going to ventricular fibrillation that does terminate spontaneously. The guest services assistant has printed out the strips with the times and those were available on the chart. She has fairly advanced ventricular dysfunction and her surgery has been delayed because she has had an inability to discontinue IV drug use. She also has apparently been noncompliant with her medications at home and recently signed out of the emergency room AMA declining therapy for a DVT which has now been complicated by pulmonary embolus. I doubt peripheral pulmonary emboli would be the cause of her presentation, this is more likely to be primary myocardial disease but nevertheless it is a possibility. There is really nothing here to suggest that a thrombolytic adds anything particularly if she is presently hemodynamically stable. There simply is no data managing this type of issue with just peripheral emboli. Obviously, her prognosis is incredibly guarded. I will follow with you over the weekend and her primary field administrator, Dr. Kelly, will be available again next week. At present I am in agreement with the therapy being provided. The only definitive therapy that can be offered in this setting is surgical intervention and cardiothoracic surgery is actively following this patient. MD CECI Javier/BJSuleiman /1:56 PM /4:26 PM
[2016-09-01] MEDS ORDERED: FUROSEMIDE 40 MG/4 ML VIAL ONE (17:09)
--- NOTE | 2016-09-01 20:25 | HHI.IDPN ---
Subjective Subjective Remarks ID Xccover for Dr Eb Lynn Notes reviewed 26 yo F with aortic an mitral valve insufficianey as sequella of infectious endocarditis admitted with resp failure, suffered cardia arrest soon after admission Improved On NC O2 co some CP CT showe dconsolidations, effusions and b/l lower lobe pulm embolism No fever BC negative so far @ 3 days Antibiotics Vancomycin Cefepime Zithromax Lines PIV Past Medical History Prolonged hospitalization from October 18 to December 24, 2015 for infective endocarditis and subsequent complications Prolonged hospitalization from Jun 22 - Jul 23 for CHF and cervical discitis History of severe sepsis, with respiratory failure Septic emboli to the brain lungs spleen Right frontal subarachnoid hemorrhage Bilateral sacroiliitis CVA with residual left hemiplegia Residual vegetation on echo done on 08/07/16, also moderate to severe AR, severe MR (patient had OP follow up to see Dr. Perez) Past Surgical History History of discitis status post ACDF by Dr. 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 Vital Signs Date Time Temp Pulse Resp B/P Pulse Ox O2 Delivery O2 Flow Rate FiO2 09/01/16 18:00 97 09/01/16 16:00 111 24 103/74 97 09/01/16 16:00 111 09/01/16 15:07 98 Nasal Cannula 4 09/01/16 14:11 100 40 09/01/16 14:00 122 09/01/16 12:00 40 09/01/16 12:00 116 09/01/16 12:00 97.3 116 22 119/58 100 107/64 09/01/16 10:54 100 40 09/01/16 10:09 100 09/01/16 10:00 95 09/01/16 08:00 97.1 106 21 108/72 100 109/63 09/01/16 08:00 106 09/01/16 07:25 100 40 09/01/16 06:00 89 09/01/16 04:01 100 50 09/01/16 04:00 97.8 91 20 109/81 100 116/63 09/01/16 04:00 91 09/01/16 03:20 100 100 09/01/16 02:00 90 09/01/16 00:00 98.2 109 21 118/68 100 121/68 09/01/16 00:00 109 08/31/16 22:15 100 100 08/31/16 22:00 132 08/31/16 21:50 100 21 08/31/16 08/31/16 09/01/16 14:59 22:59 06:59 Intake Total 747 ml 680 ml 1880 ml Output Total 2000 ml 350 ml 3550 ml Balance -1253 ml 330 ml -1670 ml Intake Oral 600 ml 360 ml 400 ml IV Total 147 ml 320 ml 1480 ml Output Urine Total 2000 ml 350 ml 3550 ml # Bowel Movements 0 0 1 . Laboratory Tests Test 08/31/16 08/31/16 05:56 23:20 White Blood Count 6.1 TH/MM3 9.5 TH/MM3 Red Blood Count 4.40 MIL/MM3 4.08 MIL/MM3 Hemoglobin 13.8 GM/DL 13.0 GM/DL Hematocrit 42.4 % 42.7 % Mean Corpuscular Volume 96.5 FL 104.8 FL Mean Corpuscular Hemoglobin 31.4 PG 31.8 PG Mean Corpuscular Hemoglobin 32.5 % 30.3 % Concent Red Cell Distribution Width 21.0 % 21.4 % Platelet Count 94 TH/MM3 102 TH/MM3 Mean Platelet Volume 8.8 FL 9.3 FL Neutrophils (%) (Auto) 59.5 % Lymphocytes (%) (Auto) 32.7 % Monocytes (%) (Auto) 6.2 % Eosinophils (%) (Auto) 0.9 % Basophils (%) (Auto) 0.7 % Neutrophils # (Auto) 3.6 TH/MM3 Lymphocytes # (Auto) 2.0 TH/MM3 Monocytes # (Auto) 0.4 TH/MM3 Eosinophils # (Auto) 0.1 TH/MM3 Basophils # (Auto) 0.0 TH/MM3 CBC Comment AUTO DIFF Differential Comment AUTO DIFF CONFIRMED Platelet Estimate LOW Platelet Morphology Comment NORMAL Laboratory Tests Test 08/30/16 08/31/16 08/31/16 08/31/16 20:49 05:56 13:15 22:49 Lactic Acid Level 3.3 mmol/L 2.3 mmol/L 14.3 mmol/L Sodium Level 138 MEQ/L 135 MEQ/L 136 MEQ/L Potassium Level 2.2 MEQ/L 4.1 MEQ/L 4.7 MEQ/L Chloride Level 94 MEQ/L 95 MEQ/L 93 MEQ/L Carbon Dioxide Level 34.0 MEQ/L 28.9 MEQ/L 23.2 MEQ/L Anion Gap 10 MEQ/L 11 MEQ/L 20 MEQ/L Blood Urea Nitrogen 10 MG/DL 9 MG/DL 11 MG/DL Creatinine 0.71 MG/DL 0.81 MG/DL 1.14 MG/DL Estimat Glomerular Filtration 99 ML/MIN 85 ML/MIN 57 ML/MIN Rate Random Glucose 78 MG/DL 150 MG/DL 282 MG/DL Calcium Level 7.3 MG/DL 7.2 MG/DL 10.3 MG/DL Protein Corrected Calcium 8.2 MG/DL 7.8 MG/DL Total Bilirubin 1.4 MG/DL 1.0 MG/DL Direct Bilirubin 0.7 MG/DL Aspartate Amino Transf 63 U/L 45 U/L (AST/SGOT) Alanine Aminotransferase 80 U/L 76 U/L (ALT/SGPT) Alkaline Phosphatase 169 U/L 183 U/L B-Type Natriuretic Peptide 812 PG/ML Total Protein 5.5 GM/DL 6.0 GM/DL 5.7 GM/DL Albumin 2.1 GM/DL 2.2 GM/DL Magnesium Level 3.5 MG/DL 3.0 MG/DL Phosphorus Level 4.8 MG/DL Total Creatine Kinase 102 U/L Creatine Kinase MB 1.8 NG/ML Troponin I 0.34 NG/ML Test 09/01/16 09/01/16 04:15 15:29 Sodium Level 140 MEQ/L 142 MEQ/L Potassium Level 2.5 MEQ/L 5.1 MEQ/L Chloride Level 98 MEQ/L 104 MEQ/L Carbon Dioxide Level 29.1 MEQ/L 28.7 MEQ/L Anion Gap 13 MEQ/L 9 MEQ/L Blood Urea Nitrogen 12 MG/DL 13 MG/DL Creatinine 0.87 MG/DL 0.88 MG/DL Estimat Glomerular Filtration 78 ML/MIN 77 ML/MIN Rate Random Glucose 163 MG/DL 99 MG/DL Calcium Level 8.2 MG/DL 8.4 MG/DL Magnesium Level 2.2 MG/DL 2.1 MG/DL B-Type Natriuretic Peptide 1302 PG/ML Microbiology Date/Time Procedure Status Source Growth 08/29/16 20:40 Aerobic Blood Culture - Preliminary Resulted Blood Peripheral NO GROWTH IN 3 DAYS 08/29/16 20:40 Anaerobic Blood Culture - Preliminary Resulted Blood Peripheral NO GROWTH IN 3 DAYS 08/29/16 20:45 Aerobic Blood Culture - Preliminary Resulted Blood Peripheral NO GROWTH IN 3 DAYS 08/29/16 20:45 Anaerobic Blood Culture - Preliminary Resulted Blood Peripheral NO GROWTH IN 3 DAYS 08/30/16 13:30 Legionella Antigen - Final Complete Urine Random Urine PRESUMPTIVE NEGATIVE FOR LEGIONELLA P... 08/30/16 13:30 Streptococcus pneumoniae Antigen (M - Final Complete Urine Random Urine PRESUMPTIVE NEGATIVE FOR STREPTOCOCCU... Imaging Last Impressions Head CT 09/01/16 0000 Signed Impressions: Service Date/Time: Thursday, September 01, 2016 03:23 - CONCLUSION: Stable CT brain with unchanged areas of low attenuation more notably within the right middle lobe. These are likely related to areas of old infarction. No acute intracranial abnormality. Abram Reyes MD CT Angiography 09/01/16 0000 Signed Impressions: Service Date/Time: Thursday, September 01, 2016 10:23 - CONCLUSION: 1. Bilateral consolidation and effusions. 2. Bilateral lower lobe pulmonary emboli. Jonny Neal MD Chest X-Ray 08/31/16 0000 Signed Impressions: Service Date/Time: Wednesday, August 31, 2016 23:01 - CONCLUSION: Cardiomegaly with bibasilar densities and small pleural effusions. Support lines and tubes as described above. Abram Reyes MD Lower Extremity Ultrasound 08/29/16 0000 Signed Impressions: Service Date/Time: Monday, August 29, 2016 21:13 - CONCLUSION: 1. No evidence for DVT. Jonny Neal MD Physical Exam GENERAL: awake and alert, looks chronically ill-appearing, looks comfortable at rest SKIN: Cool and dry. No generalized rash, no ecchymosis. No embolic lesions noted. HEENT: Ulmer conjunctivae, no petechia or hemorrhage. No scleral icterus. Moist oral mucosa. Throat without erythema, or exudate. NECK: Trachea midline. No JVD or lymphadenopathy. Supple, nontender, no meningeal signs. CARDIOVASCULAR: Regular rate and rhythm without gallops, or rubs. Has systolic murmur over L precordium and at base of heart, tachycardic, no rub. RESPIRATORY: . Breath sounds equal bilaterally. Decreased BS at bases GASTROINTESTINAL: Abdomen soft, nondistended, bowel sounds present and normoactive. No guarding. No rebound. MUSCULOSKELETAL: Extremities without clubbing, or cyanosis, trace edema NEUROLOGICAL: Awake and alert. Cranial nerves II through XII intact. L hemiplegia, some expresive apahsia (baseline) PSYCH: calm and cooperative LINE: PIV with no evidence of infection : Carter cath in place, urine looks clear Assessment & Plan Remarks IMPRESSION Bilateral pulmonary infiltrates, likely pumonary edema due to her severe valvular heart disease from previous IE - ?if with CAP as well since several members of household had respiratory infections recently - 2 D echo shopwed diffuse hypokinesis, mod AI, mod to severe MR Hx MV and AV IE, previous ly had MRSA Oct 2015 S/P Rx, and Strep viridans Jun 2016 - completed treatment clinical picture not favouring PNA Hx MDR PSAE, MRSA infection Previous episode of C diff colitis RECOMMENDATION dc cefepime, vancomycin if blood clx remain negative dc azithromycin dw Susan Choudhury MD Sep 01, 2016 20:25
[2016-09-01] MEDS: TEMAZEPAM 7.5 MG CAP PO PRN (20:43)
[2016-09-01] MEDS: MORPHINE SULFATE 4 MG/ML INJ IV PUSH PRN (20:43)
[2016-09-01] MEDS: AZITHROMYCIN INJ 500 MG in SODIUM CHLOR 0.9% 250 ML INJ 250 ML IV SCH (20:43)
[2016-09-01 22:25] LABS: BLOOD GAS VENOUS BASE EXCESS -8.4 mmol/L (-2-2); BLOOD GAS VENOUS HCO3 18 mmol/L (22-26); BLOOD GAS VENOUS O2 CONTENT 4.1 Vol % (9.0-17.0); BLOOD GAS VENOUS O2 HGB SAT 20 % (70-76); BLOOD GAS VENOUS PCO2 47 mmHg (44-48); BLOOD GAS VENOUS PO2 23 mmHg (35-40); BLOOD GAS VENOUS pH 7.21 (7.360-7.400); TEMP CORR TO 98.6
[2016-09-01 22:26] LABS: CRITICAL VALUE YES; DRAW SITE CENTRAL LINE; FIO2 21 %; STAT YES
[2016-09-01] MEDS ORDERED: ROCURONIUM INJ 50 MG/5 ML VIAL IV ONE (22:45)
[2016-09-01] MEDS ORDERED: ETOMIDATE 20 MG/10 ML VIAL IV PUSH ONE (22:45)
[2016-09-01] MEDS ORDERED: TERBUTALINE INJ 1 MG/ML AMP SQ PRN ×2 (22:45→23:00)
[2016-09-01] MEDS ORDERED: PHENYLEPHRINE 40 MG/D5W 496 ML ADMIX IV SCH ×2 (23:00)
--- NOTE | 2016-09-01 23:17 | PD.PROCEDR ---
Procedure Note Procedure PROCEDURE NOTE PROCEDURE: Endotracheal intubation INDICATION: Acute respiratory failure DETAILS OF PROCEDURE: Was called patient's bedside due to respiratory distress. Unable to pear picker sats on nonrebreather, perioral cyanosis. Unable to obtain blood pressure. RT unable to obtain ABG. VBG demonstrates metabolic and respiratory acidosis. The patient was placed in optimal position and preoxygenated with 100% FiO2 via bag- valve-mask. The patient was administered Etomidate 20 mg IV for sedation and Rocuronium 50 mg IV. Direct laryngoscopy was performed with a 3 Grimm laryngoscope blade and a grade II Cormack-Lehane view was obtained. On single attempt a size 7.5 endotracheal tube was visualized passing through the cords. Correct placement was confirmed with colorimetric CO2 detector. Breath sounds were equal bilaterally. No sounds auscultated over the stomach. The endotracheal tube was secured with a commercial tube gonzalez at a depth of 22 cm at the lips. The ETT cuff would not hold air. Tube exchanger was advanced into the 7.5 ETT and the existing tube was removed and replaced with 7.5 ETT. The patient was connected to the ventilator. The patient tolerated the procedure well without any apparent complication. Stat chest x-ray was ordered. Amlaia Gamez MD Sep 01, 2016 23:17
[2016-09-01 23:49] LABS: AUTOMATED NEUTROPHIL # 5.2 TH/MM3 (1.8-7.7); BASOPHIL # 0.1 TH/MM3 (0-0.2); BASOPHIL % 0.8 % (0.0-2.0); EOSINOPHIL % 0.3 % (0.0-4.0); HEMATOCRIT 44.8 % (35.0-46.0); LYMPH % 38.2 % (9.0-44.0); LYMPHOCYTE # 3.5 TH/MM3 (1.0-4.8); MEAN CELL VOLUME 102.8 FL (80.0-100.0); MEAN CORPUSCULAR HEMOGLOBIN 31.6 PG (27.0-34.0); MEAN CORPUSCULAR HGB CONC 30.7 % (32.0-36.0); MONO % 4.3 % (0.0-8.0); NEUT % 56.4 % (16.0-70.0); PLATELET COUNT 99 TH/MM3 (150-450); RED BLOOD COUNT 4.35 MIL/MM3 (4.00-5.30); RED CELL DISTRIBUTION WIDTH 21.5 % (11.6-17.2); WHITE BLOOD COUNT 9.2 TH/MM3 (4.0-11.0)
[2016-09-01 23:56] LABS: HEMO FLAGS DIFF FINAL
[2016-09-02] VITALS (18 sets, daily range): BP systolic 91–120; BP diastolic 42–80; PULSE 75–117; RESP 20–22; TEMP 97.3–98.9; O2SAT 96–100
[2016-09-02 00:14] LABS: BICARBONATE 18.3 MEQ/L (21.0-32.0); POTASSIUM 4.5 MEQ/L (3.5-5.1)
--- NOTE | 2016-09-02 00:23 | RADRPT ---
EXAM DATE/TIME: 09/01/2016 23:15 [facility] COMPARISON: CHEST SINGLE AP, August 31, 2016, 23:01. INDICATIONS : Please evaluate ET tube. MEDICAL HISTORY : Hepatitis C. Endocarditis. SURGICAL HISTORY : None. ENCOUNTER: Initial ACUITY: 1 day PAIN SCORE: Non-responsive. LOCATION: Bilateral chest FINDINGS: A single view of the chest demonstrates the endotracheal, left subclavian central line are in good po sitions. There is bilateral perihilar vascular congestion with enlarged heart Osseous structures are intact. CONCLUSION: Perihilar vascular congestion, slightly worsened on the previous study with tubes and catheters as ab ove in good position. Arturo Guadalupe MD on September 02, 2016 at 0:20 Board Certified Radiologist. This report was verified electronically.
[2016-09-02] MEDS ORDERED: SODIUM BICARBONATE 8.4% INJ 50 MEQ/50 ML SYR IV PUSH ONE (00:30)
[2016-09-02] MEDS ORDERED: SODIUM BICARBONATE 8.4% INJ 150 MEQ in WATER STERILE FOR INJ 850 ML IV SCH (01:00)
[2016-09-02] MEDS: CEFEPIME INJ 2,000 MG in SODIUM CHLORIDE 0.9% INJ 100 ML IV SCH ×2 (01:06→09:27)
[2016-09-02] MEDS: VANCOMYCIN 1,000 MG/NS 250 ML IV SCH ×2 (01:07)
[2016-09-02 01:44] LABS: LACTIC ACID GHOST NOT REPORTABLE
[2016-09-02 02:14] LABS: BLOOD GAS BASE EXCESS -6.8 mmol/L (-2-2); BLOOD GAS CARBOXYHEMOGLOBIN 1.5 % (0-4); BLOOD GAS HCO3 18 mmol/L (22-26); BLOOD GAS METHEMOGLOBIN 0.9 % (0-2); BLOOD GAS O2 HGB SATURATION 98 % (90-100); BLOOD GAS OXYGEN CONTENT 21.1 Vol % (12.0-20.0); BLOOD GAS PCO2 38 mmHg (38-42); BLOOD GAS PO2 414 mmHg (61-120); BLOOD GAS TOTAL HGB 14.6 G/DL (12.0-16.0); TEMP CORR TO 98.6
[2016-09-02 02:15] LABS: CRITICAL VALUE NO; DRAW SITE RT RADIAL; FIO2 100 %; NUMBER OF ARTERIAL PUNCTURES 2; OXYGEN DEVICE VENTILATOR; STAT NO; ULNAR PULSE PRESENT; VENT SETTINGS AC/20/500/5PEEP
[2016-09-02] MEDS: CHLORHEXIDINE GLUCONATE 2 % 1 PACK (2 CLOTHS) TOP SCH (04:00)
[2016-09-02] MEDS: RESP: ALBUTEROL 2.5 MG/IPRATROPIUM 0.5 MG NEB (SCH) NEB ×4 (04:05→20:01)
[2016-09-02] MEDS: PHENYLEPHRINE INJ 160 MG in DEXTROSE 5% IN WATE 500 ML INJ 484 ML IV SCH ×4 (04:44→14:36)
[2016-09-02] MEDS: fentaNYL DRIP 250 ML IV SCH ×3 (04:45→19:23)
[2016-09-02] MEDS: MIDAZOLAM HCL 2 MG/2 ML VIAL IV PUSH PRN ×4 (06:30→20:15)
[2016-09-02] MEDS ORDERED: CHLORHEXIDINE 0.12% (ORAL KIT) 15 ML CUP MT SCH (08:00)
[2016-09-02] MEDS: SODIUM CHLORIDE 0.9% FLUSH 5 ML FLUSH IVF SCH ×2 (09:28→20:14)
[2016-09-02] MEDS: PANTOPRAZOLE SODIUM 40 MG VIAL IV SCH (09:28)
[2016-09-02] MEDS: ENOXAPARIN SODIUM 100 MG/ML SYRINGE SQ SCH (09:28)
[2016-09-02] MEDS: CHLORHEXIDINE 0.12% (ORAL KIT) 15 ML CUP MT SCH ×2 (09:29→20:00)
[2016-09-02] MEDS ORDERED: FUROSEMIDE 40 MG/4 ML VIAL ONE (10:00)
--- NOTE | 2016-09-02 13:02 | PD.CARD.PN ---
Subjective Subjective Remarks Sedated and re-intubated last night for acute respiratory failure. Objective Medications Current Medications Medications (Trade) Dose Ordered Sig/Nicky Route Start Time Stop Time Status Last Admin (NS Flush) 2 ml UNSCH PRN IVF 08/30/16 02:15 08/31/16 16:30 (NS Flush) 2 ml BID IVF 08/30/16 09:00 09/02/16 09:28 (Tylenol) 650 mg Q6H PRN PO 08/30/16 02:15 (Peridex 0.12% Liq) 15 ml BID@08,20 MT 08/30/16 08:00 09/02/16 09:29 (Protonix Inj) 40 mg DAILY IV 08/30/16 09:00 09/02/16 09:28 Miscellaneous Information 1 Q361D XX 08/30/16 02:15 (Chlorhexidine 2% Cloth) 3 pack Taper DAILY@04 TOP 08/30/16 04:00 08/26/17 03:59 09/02/16 04:00 Chlorhexidine Gluconate 3 pack 3 pack UNSCH PRN [facility] 08/30/16 02:15 Pharmacy Profile Note 0 ml @ 0 mls/hr UNSCH OTHER 08/30/16 02:15 (Vancomycin Inj/ NS 250 ml Inj) 250 ml @ 250 mls/hr Q18H IV 08/30/16 18:00 09/02/16 01:07 (Ultram) 50 mg Q8H PRN PO 08/30/16 17:00 08/31/16 12:09 (Restoril) 7.5 mg HS PRN PO 08/30/16 21:15 09/01/16 20:43 (Morphine Inj) 2 mg Q3H PRN IV PUSH 08/31/16 01:15 09/01/16 20:43 Magnesium Oxide 800 mg 800 mg UNSCH PRN PO 08/31/16 11:15 Magnesium Sulfate 4 gm/Sodium Chloride 100 ml @ 50 mls/hr UNSCH PRN IV 08/31/16 11:15 Magnesium Sulfate 2 gm/Sodium Chloride 100 ml @ 50 mls/hr UNSCH PRN IV 08/31/16 11:15 Potassium Chloride 100 ml @ 50 mls/hr Q2H PRN IV 08/31/16 11:15 Potassium Chloride 100 ml @ 50 mls/hr Q2H PRN IV 08/31/16 11:15 Potassium Chloride 100 ml @ 50 mls/hr Q2H PRN IV 08/31/16 11:15 09/01/16 06:25 (KCl 40 Meq Premix Inj) 100 ml @ 25 mls/hr UNSCH PRN IV 08/31/16 11:15 (KCl 40 Meq/30 ml Liq) 40 meq UNSCH PRN PO/TUBE 08/31/16 11:15 (KCl 40 Meq/30 ml Liq) 40 meq UNSCH PRN PO/TUBE 08/31/16 11:15 (K-Phos) 2,000 mg Q4H PRN PO 08/31/16 11:15 Potassium Phosphate 2000 mg 2,000 mg UNSCH PRN PO/TUBE 08/31/16 11:15 Potassium Phosphate 30 mmol/ Sodium Chloride 260 ml @ 42 mls/hr UNSCH PRN IV 08/31/16 11:15 (Sodium Phosphate Inj/NS 250 ml Inj) 250 ml @ 42 mls/hr UNSCH PRN IV 08/31/16 11:15 (Lovenox Inj) 100 mg Q24H SQ 09/01/16 09:00 09/02/16 09:28 Terbutaline Sulfate 1 mg 1 mg UNSCH PRN SQ 09/01/16 22:45 Phenylephrine HCl 160 mg/Dextrose 500 ml @ 0 mls/hr TITRATE IV 09/01/16 22:45 09/02/16 04:44 (fentaNYL DRIP) 250 ml @ 0 mls/hr TITRATE IV 09/01/16 22:45 09/02/16 09:49 Midazolam HCl 2 mg 2 mg Q15M PRN IV PUSH 09/01/16 22:45 09/02/16 09:26 Sodium Bicarbonate 150 meq/Sterile Water 1,000 ml @ 50 mls/hr Q20H IV 09/02/16 01:00 09/02/16 04:43 (Maxipime Inj/NS Inj) 100 ml @ 200 mls/hr Q12H IV 09/02/16 21:00 Vital Signs / I&O Vital Signs Date Time Temp Pulse Resp B/P Pulse Ox O2 Delivery O2 Flow Rate FiO2 09/02/16 11:55 100 40 09/02/16 08:25 100 50 09/02/16 06:00 109 09/02/16 04:02 100 60 09/02/16 04:00 98.2 97 20 120/71 100 09/02/16 04:00 97 09/02/16 04:00 100 09/02/16 02:00 117 09/02/16 01:25 96 100 09/02/16 00:00 100 09/02/16 00:00 97.3 111 20 110/67 100 09/02/16 00:00 111 09/01/16 22:00 142 09/01/16 20:00 99 09/01/16 20:00 97.6 99 27 154/66 94 09/01/16 18:00 97 09/01/16 16:00 111 24 103/74 97 09/01/16 16:00 111 09/01/16 15:07 98 Nasal Cannula 4 09/01/16 14:11 100 40 09/01/16 14:00 122 I/O 09/01/16 09/01/16 09/01/16 09/02/16 09/02/16 09/02/16 07:00 15:00 23:00 07:00 15:00 23:00 Intake Total 1880 ml 821 ml 989 ml 604 ml Output Total 3550 ml 735 ml 3395 ml 150 ml Balance -1670 ml 86 ml -2406 ml 454 ml Intake Oral 400 ml 0 ml 570 ml IV Total 1480 ml 791 ml 419 ml 604 ml Tube Irrigant 30 ml Output Urine Total 3550 ml 735 ml 3395 ml 150 ml # Bowel Movements 1 0 5 1 Physical Exam Lungs: Coarse BS CV: RRR, soft murmur, HS distant Ext: No edema Telem: NSR Laboratory Laboratory Tests Test 09/01/16 09/01/16 09/01/16 09/02/16 15:29 22:15 23:29 02:05 Sodium Level 142 MEQ/L 137 MEQ/L Potassium Level 5.1 MEQ/L 4.5 MEQ/L Chloride Level 104 MEQ/L 98 MEQ/L Carbon Dioxide Level 28.7 MEQ/L 18.3 MEQ/L Anion Gap 9 MEQ/L 21 MEQ/L Blood Urea Nitrogen 13 MG/DL 15 MG/DL Creatinine 0.88 MG/DL 1.33 MG/DL Estimat Glomerular Filtration 77 ML/MIN 48 ML/MIN Rate Random Glucose 99 MG/DL 263 MG/DL Calcium Level 8.4 MG/DL 7.9 MG/DL Magnesium Level 2.1 MG/DL Blood Gas Puncture Site CENTRAL LINE RT RADIAL Blood Gas Patient Temperature 98.6 98.6 Venous Blood pH 7.21 Venous Blood Partial Pressure 47 mmHg CO2 Venous Blood Partial Pressure 23 mmHg O2 Venous Blood HCO3 18 mmol/L Venous Blood Oxygen Saturation 20 % Venous Blood Oxygen Content 4.1 Vol % Venous Blood Base Excess -8.4 mmol/L Blood Gas Inspired Oxygen 21 % 100 % White Blood Count 9.2 TH/MM3 Red Blood Count 4.35 MIL/MM3 Hemoglobin 13.8 GM/DL Hematocrit 44.8 % Mean Corpuscular Volume 102.8 FL Mean Corpuscular Hemoglobin 31.6 PG Mean Corpuscular Hemoglobin 30.7 % Concent Red Cell Distribution Width 21.5 % Platelet Count 99 TH/MM3 Mean Platelet Volume 10.1 FL Neutrophils (%) (Auto) 56.4 % Lymphocytes (%) (Auto) 38.2 % Monocytes (%) (Auto) 4.3 % Eosinophils (%) (Auto) 0.3 % Basophils (%) (Auto) 0.8 % Neutrophils # (Auto) 5.2 TH/MM3 Lymphocytes # (Auto) 3.5 TH/MM3 Monocytes # (Auto) 0.4 TH/MM3 Eosinophils # (Auto) 0.0 TH/MM3 Basophils # (Auto) 0.1 TH/MM3 CBC Comment DIFF FINAL Differential Comment Lactic Acid Level 13.1 mmol/L Blood Gas HCO3 18 mmol/L Blood Gas Base Excess -6.8 mmol/L Blood Gas Oxygen Saturation 98 % Arterial Blood pH 7.30 Arterial Blood Partial 38 mmHg Pressure CO2 Arterial Blood Partial 414 mmHg Pressure O2 Arterial Blood Oxygen Content 21.1 Vol % Arterial Blood 1.5 % Carboxyhemoglobin Arterial Blood Methemoglobin 0.9 % Blood Gas Hemoglobin 14.6 G/DL Oxygen Delivery Device VENTILATOR Blood Gas Ventilator Setting AC/20/500/5PEEP Test 09/02/16 02:50 Creatinine 1.28 MG/DL Estimat Glomerular Filtration 50 ML/MIN Rate Lactic Acid Level 8.3 mmol/L Imaging Last Impressions Head CT 09/01/16 0000 Signed Impressions: Service Date/Time: Thursday, September 01, 2016 03:23 - CONCLUSION: Stable CT brain with unchanged areas of low attenuation more notably within the right middle lobe. These are likely related to areas of old infarction. No acute intracranial abnormality. Abram Reyes MD Chest X-Ray 09/01/16 0000 Signed Impressions: Service Date/Time: Thursday, September 01, 2016 23:15 - CONCLUSION: Perihilar vascular congestion, slightly worsened on the previous study with tubes and catheters as above in good position. Arturo Guadalupe MD CT Angiography 09/01/16 0000 Signed Impressions: Service Date/Time: Thursday, September 01, 2016 10:23 - CONCLUSION: 1. Bilateral consolidation and effusions. 2. Bilateral lower lobe pulmonary emboli. Jonny Neal MD Lower Extremity Ultrasound 08/29/16 0000 Signed Impressions: Service Date/Time: Monday, August 29, 2016 21:13 - CONCLUSION: 1. No evidence for DVT. Jonny Neal MD Assessment and Plan Assessment and Plan Covering for Dr. Kelly 1) S/P Cardiac arrest with PEA and intubation. 2) Respiratory Failure with re-intubated last night. Rhythm stable. Electrolytes in balance. 3) SBE- ongoing treatment with severe MR and AI- CVT following 4) Severe CM with known EF in the 30% range 5) Hx DVT and now PE - on anticoag - managment per attending/critical care 6) Hx CVA with Septic emboli to brain; MRI Brain 08/13/16 with subacute to chronic cerebral infarcts containing subacute and chronic hemorrhagic products- managment per attending/critical care Dr. Rosado to cover on Saturday and Dr. Kelly will resume cardiology f/u Saturday Discussed Condition With Meri Guerrero Sep 02, 2016 13:02
--- NOTE | 2016-09-02 13:10 | HHI.CCPN ---
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 status post previous antibiotic therapy who presented to the ER with worsening shortness of breath which has been progressing over the last few months. She was evaluated at her primary care physician's office today and was advised to come to the ER. Patient was noted to be tachycardic with heart rate in the 130s respiratory rate 30s with significant edema on arrival. She was placed on nasal cannula initially however subsequently due to worsening respiratory status was placed on BiPAP. She received Lasix 80 mg IV and weight 1600 cc of urine in the ER. Patient was accepted for admission by critical care medicine service. When I evaluated the patient she was on BiPAP with full facemask, sitting up in the ER stretcher. Subjective: 08/31: diuresed net 10L negative yesterday with tid lasix dosing. on nasal cannula. feels much better. tolerating a diet. cardiac surgery evaluated her and will plan for AVR next week. 09/01: doing well yesterday afternoon, and was planning on transferring to hospitalist service and floor today. however, at 22:20, sustained a cardiac arrest. reviewing telemetry, it appears she went into unstable V Tach which then converted into a PEA arrest. CPR was performed for approximately 8 minutes with 2 rounds of epinephrine after which ROSC was obtained. She was emergently intubated and central line/art line were placed. This morning, she is off vasopressors, not hypoxic. she is starting to arouse and is briskly purposeful, although not following commands. Her electrolytes were aggressively replaced yesterday for severe hypokalemia, although her recheck potassium was normal. This morning, her K is again severely low. I have seen the patient and have ordered a STAT CT pulmonary angiogram. She had a negative CT PE done on 08/29 along with a negative LE u/s for DVT. 09/02: was extubated yesterday, completely at neurologic baseline. doing well on NC o2. diuresing. last night was reintubated for resp distress. also had received versed prn prior to this. still volume overloaded this AM. following commands. hypoxia improved. net 2L negative. Objective Vital Signs Date Time Temp Pulse Resp B/P Pulse Ox O2 Delivery O2 Flow Rate FiO2 1/1/17 11:55 100 40 09/02/16 06:00 109 09/02/16 04:00 98.2 20 120/71 09/01/16 15:07 Nasal Cannula 4 Intake and Output 09/01/16 09/01/16 09/02/16 08:00 16:00 00:00 Intake Total 735 ml 851 ml 959 ml Output Total 2750 ml 765 ml 3365 ml Balance -2015 ml 86 ml -2406 ml Result Diagram: 09/01/16 2329 09/02/16 0250 Other Results Microbiology Date/Time Procedure Status Source Growth 08/30/16 13:30 Legionella Antigen - Final Complete Urine Random Urine PRESUMPTIVE NEGATIVE FOR LEGIONELLA P... 08/30/16 13:30 Streptococcus pneumoniae Antigen (M - Final Complete Urine Random Urine PRESUMPTIVE NEGATIVE FOR STREPTOCOCCU... Laboratory Tests Test 09/01/16 09/02/16 22:15 02:05 Blood Gas Puncture Site CENTRAL LINE RT RADIAL Blood Gas Patient Temperature 98.6 98.6 Venous Blood pH 7.21 (7.360-7.400) Venous Blood Partial Pressure 47 mmHg (44-48) CO2 Venous Blood Partial Pressure 23 mmHg (35-40) O2 Venous Blood HCO3 18 mmol/L (22-26) Venous Blood Oxygen Saturation 20 % (70-76) Venous Blood Oxygen Content 4.1 Vol % (9.0-17.0) Venous Blood Base Excess -8.4 mmol/L (-2-2) Blood Gas Inspired Oxygen 21 % 100 % Blood Gas HCO3 18 mmol/L (22-26) Blood Gas Base Excess -6.8 mmol/L (-2-2) Blood Gas Oxygen Saturation 98 % (90-100) Arterial Blood pH 7.30 (7.380-7.420) Arterial Blood Partial 38 mmHg (38-42) Pressure CO2 Arterial Blood Partial 414 mmHg Pressure O2 (61-120) Arterial Blood Oxygen Content 21.1 Vol % (12.0-20.0) Arterial Blood 1.5 % (0-4) Carboxyhemoglobin Arterial Blood Methemoglobin 0.9 % (0-2) Blood Gas Hemoglobin 14.6 G/DL (12.0-16.0) Oxygen Delivery Device VENTILATOR Blood Gas Ventilator Setting AC/20/500/5PEEP Imaging Last Impressions Chest X-Ray 08/29/162034 Signed Impressions: Service Date/Time: Monday, August 29, 2016 20:47 - CONCLUSION: Airspace disease and effusions. Jonny Neal MD CT Angiography 08/29/162034 Signed Impressions: Service Date/Time: Monday, August 29, 2016 22:24 - CONCLUSION: 1. There is no evidence for pulmonary embolism within the main pulmonary arteries. Evaluation of the lower lobe subsegmental branches however is significantly limited and PE cannot be confidently excluded on the basis of this examination. 2. Bilateral pleural effusions and patchy bilateral pulmonary infiltrates are identified. Jonny Neal MD Objective Remarks GENERAL: Young female, lying in bed, intubated, critically ill HEENT: Pupils are equal, 2 mm, reactive, conjugate. Mucous membranes are moist. NECK: Trachea is midline. There is a left subclavian triple-lumen catheter, site is clean, dressing intact. CHEST: Equal chest rise. PRVC 500/20/5/40%. clear to auscultation. CARDIOVASCULAR: normal rate, regular rhythm. off norepi currently. ABDOMEN: Soft, nontender, nondistended. No guarding. MUSCULOSKELETAL: 1+ pitting edema. Distal pulses are 2+. NEUROLOGICAL: RASS -1. CAM -. Follows commands on left, neurologically at baseline. A/P Assessment and Plan Assessment: This is a 26-year-old female with history of endocarditis status post appropriate therapy and subsequently with severe aortic regurgitation, moderate mitral regurgitation, severe biventricular dysfunction. now with respiratory failure x 2 requiring re-intubation. I am unclear if the prn versed had any influence on her respiratory status overnight, but certainly she remains in acute intravascular volume overload, and this may be continually contributing to her decompensations. despite her neurologically back to baseline and her respiratory mechanics are also at baseline, I do not think it is safe to again try to extubate her today, given how tenuous her intravascular volume status and particularly her propensity for flash pulmonary edema. I think today we will try to continue aggressive forced diuresis and will hold on extubation. she has proven that she continues to be critically ill, despite ongoing therapy, and I think yesterday proves that if we remove ventilatory support, she will likely . she remains critically ill. Plan by systems: Neurologic: Possible hypoxic ischemic encephalopathy Chronic pain IV drug abuse History of CVA with residual left-sided weakness Fentanyl drip for goal RASS. 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 Lovenox 1.5 mg/kg subcutaneous every 24 Cardiology following: Dr. Kelly Cardiac surgery following: Dr. Meier. Plan was for aortic valve replacement next week. This made need to be put on hold given her acute decompensation Renal: Acute Kidney Injury Acute intravascular volume overload --likely 2/2 recent cardiac arrest Every hour urine outputs and strict I's and O's in the setting of recent arrest. -- Strict I/Os --lasix 40mg iv q8h for forced diuresis: goal 1-2L negative/24h. FEN/GI: Acute intravascular volume overload Acute life-threatening hypokalemia Acute protein calorie malnutritionmoderate Saline lock IV fluids ICU electrolyte protocol Aggressively replace potassium We'll recheck potassium this afternoon --Lasix as above. Daily BMP Heme/ID: History of nonocclusive left femoral vein DVT 08/20 History of MRSA endocarditis Possible healthcare associated pneumonia Cultures have been negative 48 hours. I will discuss with ID possibility of discontinuing broad-spectrum antibiotics Lovenox 1.5 mg/kg subcutaneous every 24 hours (100 mg) Daily CBC Endocrine: Hyperglycemia of critical illness -- SSI, every 6 hours, medium scale Prophylaxis: GI Prophylaxis Protonix 40 mg IV daily 24 hours DVT Prophylaxis -- SCDs Therapeutic Lovenox Lines: 09/01 left subclavian triple-lumen catheter Carter Dispo: Remain in the ICU. She is very critically ill. Critical care medicine will continue to follow her. This patient remains critically ill with one or more organ systems which are or may become a threat to life. I have spent in excess of 31 minutes discontinuously in the care and management of this patient. This time is exclusive of procedures, and includes, but is not limited to, evaluation of the patient, review of the medical record, discussions with family, consultants, nursing staff, or respiratory therapy, and documentation in the medical record. David Lynn MD Sep 02, 2016 13:10
--- NOTE | 2016-09-02 13:19 | EKG ---
Date Performed: 08/31/2016 Time Performed: 23:55:38 PTAGE: 26 years EKG: Normal Sinus rhythm Old anteroseptal myocardial infarction Right axis deviation QRS changes in V2 may be due to LVH but cannot rule out septal infarct Abnormal ECG Compared to PREVIOUS TRACING there has been a slowing of the sinus tachycardia but no other signific ant serial changes. PREVIOUS TRACIN08/29/2016 21.09 DOCTOR: Shelly Hudson Interpretating Date/Time 09/02/2016 13:18:08
[2016-09-02] MEDS: FUROSEMIDE 40 MG/4 ML VIAL IV PUSH SCH ×2 (15:05→20:15)
[2016-09-02 17:44] LABS: BICARBONATE 32.8 MEQ/L (21.0-32.0); MAGNESIUM 1.9 MG/DL (1.5-2.5)
[2016-09-02 17:54] LABS: POTASSIUM 2.9 MEQ/L (3.5-5.1)
[2016-09-02] MEDS: POTASSIUM CHLOR 40 MEQ PREMIX 100 ML IV PRN ×2 (18:10→18:11)
[2016-09-02] MEDS: SODIUM CHLORIDE 0.9% FLUSH 5 ML FLUSH IVF PRN (20:18)
[2016-09-02] MEDS ORDERED: CEFEPIME INJ 2,000 MG in SODIUM CHLORIDE 0.9% INJ 100 ML IV SCH (21:00)
[2016-09-03] VITALS (19 sets, daily range): BP systolic 102–121; BP diastolic 52–72; PULSE 75–135; RESP 8–24; TEMP 98–100.6; O2SAT 96–100
[2016-09-03] MEDS: MIDAZOLAM HCL 2 MG/2 ML VIAL IV PUSH PRN ×5 (00:14→07:29)
[2016-09-03] MEDS: RESP: ALBUTEROL 2.5 MG/IPRATROPIUM 0.5 MG NEB (SCH) NEB ×4 (03:33→19:15)
[2016-09-03] MEDS: CHLORHEXIDINE GLUCONATE 2 % 1 PACK (2 CLOTHS) TOP SCH (04:00)
[2016-09-03] MEDS: FUROSEMIDE 40 MG/4 ML VIAL IV PUSH SCH ×3 (05:18→21:43)
[2016-09-03] MEDS: fentaNYL DRIP 250 ML IV SCH ×2 (05:18→13:44)
[2016-09-03] MEDS: PANTOPRAZOLE SODIUM 40 MG VIAL IV SCH (08:15)
[2016-09-03] MEDS: ENOXAPARIN SODIUM 100 MG/ML SYRINGE SQ SCH (08:15)
[2016-09-03] MEDS: CHLORHEXIDINE 0.12% (ORAL KIT) 15 ML CUP MT SCH ×2 (08:16→19:49)
[2016-09-03] MEDS: SODIUM CHLORIDE 0.9% FLUSH 5 ML FLUSH IVF SCH ×2 (08:16→19:50)
[2016-09-03] MEDS: MAGNESIUM SULFATE 1 GM PREMIX 100 ML IV SCH ×2 (08:16→11:02)
[2016-09-03 08:49] LABS: NUMBER OF ARTERIAL PUNCTURES 1
--- NOTE | 2016-09-03 08:54 | HHI.CCPN ---
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 status post previous antibiotic therapy who presented to the ER with worsening shortness of breath which has been progressing over the last few months. She was evaluated at her primary care physician's office today and was advised to come to the ER. Patient was noted to be tachycardic with heart rate in the 130s respiratory rate 30s with significant edema on arrival. She was placed on nasal cannula initially however subsequently due to worsening respiratory status was placed on BiPAP. She received Lasix 80 mg IV and weight 1600 cc of urine in the ER. Patient was accepted for admission by critical care medicine service. When I evaluated the patient she was on BiPAP with full facemask, sitting up in the ER stretcher. Subjective: 08/31: diuresed net 10L negative yesterday with tid lasix dosing. on nasal cannula. feels much better. tolerating a diet. cardiac surgery evaluated her and will plan for AVR next week. 09/01: doing well yesterday afternoon, and was planning on transferring to hospitalist service and floor today. however, at 22:20, sustained a cardiac arrest. reviewing telemetry, it appears she went into unstable V Tach which then converted into a PEA arrest. CPR was performed for approximately 8 minutes with 2 rounds of epinephrine after which ROSC was obtained. She was emergently intubated and central line/art line were placed. This morning, she is off vasopressors, not hypoxic. she is starting to arouse and is briskly purposeful, although not following commands. Her electrolytes were aggressively replaced yesterday for severe hypokalemia, although her recheck potassium was normal. This morning, her K is again severely low. I have seen the patient and have ordered a STAT CT pulmonary angiogram. She had a negative CT PE done on 08/29 along with a negative LE u/s for DVT. 09/02: was extubated yesterday, completely at neurologic baseline. doing well on NC o2. diuresing. last night was reintubated for resp distress. also had received versed prn prior to this. still volume overloaded this AM. following commands. hypoxia improved. net 2L negative. 09/03: remained intubated yesterday for concerns over intravascular volume overload. net -5L. doing well this morning, though agitated. RASS +1, but CAM - . She does not want to remain intubated, though I am concerned about her recurrent flash pulmonary edema. Objective Vital Signs Date Time Temp Pulse Resp B/P Pulse Ox O2 Delivery O2 Flow Rate FiO2 09/03/16 07:34 100 35 09/03/16 06:00 76 09/03/16 04:00 99.0 20 109/57 09/01/16 15:07 Nasal Cannula 4 Intake and Output 09/02/16 09/02/16 09/02/16 07:59 15:59 23:59 Intake Total 604 ml 995 ml 276 ml Output Total 150 ml 2350 ml 2450 ml Balance 454 ml -1355 ml -2174 ml Result Diagram: 09/01/169 09/02/16 1600 Imaging Last Impressions Chest X-Ray 08/29/162034 Signed Impressions: Service Date/Time: Monday, August 29, 2016 20:47 - CONCLUSION: Airspace disease and effusions. Jonny Neal MD CT Angiography 08/29/162034 Signed Impressions: Service Date/Time: Monday, August 29, 2016 22:24 - CONCLUSION: 1. There is no evidence for pulmonary embolism within the main pulmonary arteries. Evaluation of the lower lobe subsegmental branches however is significantly limited and PE cannot be confidently excluded on the basis of this examination. 2. Bilateral pleural effusions and patchy bilateral pulmonary infiltrates are identified. Jonny Neal MD Objective Remarks GENERAL: Young female, lying in bed, intubated, critically ill HEENT: Pupils are equal, 2 mm, reactive, conjugate. Mucous membranes are moist. NECK: Trachea is midline. There is a left subclavian triple-lumen catheter, site is clean, dressing intact. CHEST: Equal chest rise. PRVC 500/20/5/40%. clear to auscultation. CARDIOVASCULAR: normal rate, regular rhythm. ABDOMEN: Soft, nontender, nondistended. No guarding. MUSCULOSKELETAL: 1+ pitting edema. Distal pulses are 2+. NEUROLOGICAL: RASS +1. CAM -. Follows commands on left, neurologically at baseline. A/P Assessment and Plan Assessment: This is a 26-year-old female with history of endocarditis status post appropriate therapy and subsequently with severe aortic regurgitation, moderate mitral regurgitation, severe biventricular dysfunction. now with respiratory failure x 2 requiring re-intubation. It appears that the majority of her problems are related to intravascular volume overload and congestive failure secondary to her severe AI. She remained intubated yesterday and diuresed an additional 5L off. We will continue forced diuresis today with a goal of another 2L negative at least. I will add diamox to control her contraction alkalosis. If she continues to diurese well, we can consider another trial of extubation. certainly her aortic insufficiency has proven that she still remains critically ill with a high likelihood of decompensation. Plan by systems: Neurologic: Possible hypoxic ischemic encephalopathy Chronic pain IV drug abuse History of CVA with residual left-sided weakness Fentanyl drip for goal RASS. Goal RASS -1 Every hour neuro checks CT head 09/01 negative acute Respiratory: Acute hypoxic and hypercarbic respiratory failure Possible pulmonary embolism 09/01 CT PE: bilateral lower lobe emboli Vent bundle Head of bed 30 Wean FiO2 for goal SPO2 greater than 90% --SBT today. 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 Lovenox 1.5 mg/kg subcutaneous every 24 Cardiology following: Dr. Kelly Cardiac surgery following: Dr. Meier. Plan was for aortic valve replacement next week. This made need to be put on hold given her acute decompensation Renal: Acute Kidney Injury Acute intravascular volume overload Metabolic alkalosis- likely 2/2 intravascular contraction. --likely 2/2 recent cardiac arrest, slowly resolving. Every hour urine outputs and strict I's and O's in the setting of recent arrest. -- Strict I/Os --lasix 40mg iv q8h for forced diuresis: goal at least 2L negative/24h. --diamox 500 iv q8h x 3 doses. FEN/GI: Acute intravascular volume overload Acute life-threatening hypokalemia Acute protein calorie malnutritionmoderate Saline lock IV fluids ICU electrolyte protocol Aggressively replace potassium We'll recheck potassium this afternoon --Lasix as above. Daily BMP Heme/ID: History of nonocclusive left femoral vein DVT 08/20 History of MRSA endocarditis Possible healthcare associated pneumonia Cultures have been negative 48 hours. ID on board. --abx discontinued 09/02. monitor fever curve. Lovenox 1.5 mg/kg subcutaneous every 24 hours (100 mg) Daily CBC Endocrine: Hyperglycemia of critical illness -- SSI, every 6 hours, medium scale Prophylaxis: GI Prophylaxis Protonix 40 mg IV daily 24 hours DVT Prophylaxis -- SCDs Therapeutic Lovenox Lines: 09/01 left subclavian triple-lumen catheter Carter Dispo: Remain in the ICU. She is very critically ill. Critical care medicine will continue to follow her. This patient remains critically ill with one or more organ systems which are or may become a threat to life. I have spent in excess of 33 minutes discontinuously in the care and management of this patient. This time is exclusive of procedures, and includes, but is not limited to, evaluation of the patient, review of the medical record, discussions with family, consultants, nursing staff, or respiratory therapy, and documentation in the medical record. David Lynn MD Sep 03, 2016 08:54
--- NOTE | 2016-09-03 11:00 | PD.CAR.PN ---
CVT Progress Note Subjective/Hospital Course: Patient well-known to our service. 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 She has had numerous hospitalizations secondary to complications from the SBE. She is a high-risk surgical candidate secondary to her clinical comorbidities and social behaviors. She has no complaints this morning. 09/01/16 Events overnight noted with cardiac arrest, CPR, etc Patient intubated on vent 09/03 pt was extubated then reintubated after 8 hours now on CPAP, awake and following commands CTA chest noted/ Bilateral PE now on lovenox neg : urine drug tox screen on scheduled lasix, potassium being replaced Objective: GENERAL: orally intubated on vent awake follows simple commands SKIN: Warm and dry. HEAD: Normocephalic. EYES: No scleral icterus. No injection or drainage. NECK: Supple, trachea midline. No JVD or lymphadenopathy. CARDIOVASCULAR: 3/6 SM Regular rate and rhythm, general edema left upper ext > right RESPIRATORY: few coarse breath sounds equal bilaterally. No accessory muscle use. GASTROINTESTINAL: Abdomen soft, non-tender, nondistended. / ng tube in place, tolerating tube feeds MUSCULOSKELETAL: No cyanosis, or edema. BACK: Nontender without obvious deformity. No CVA tenderness. Vital Signs Date Time Temp Pulse Resp B/P Pulse Ox O2 Delivery O2 Flow Rate FiO2 09/03/16 10:00 76 09/03/16 08:00 76 09/03/16 08:00 35 09/03/16 08:00 98.9 76 20 118/66 99 09/03/16 07:34 100 35 09/03/16 07:00 75 119/72 Arterial Line 09/03/16 06:00 76 09/03/16 04:01 100 40 09/03/16 04:00 99.0 76 20 109/57 98 09/03/16 04:00 40 09/03/16 04:00 76 09/03/16 02:00 79 09/03/16 01:00 98 40 09/03/16 00:00 77 09/03/16 00:00 98.0 77 20 102/56 98 09/03/16 00:00 40 09/02/16 22:00 78 09/02/16 20:01 99 40 09/02/16 20:00 40 09/02/16 20:00 92 09/02/16 20:00 98.9 92 22 100/51 99 09/02/16 18:00 79 09/02/16 16:00 98.7 79 20 91/42 100 09/02/16 16:00 79 09/02/16 16:00 50 09/02/16 15:21 98 40 09/02/16 14:00 75 09/02/16 12:00 50 09/02/16 12:00 98.5 76 20 106/58 100 09/02/16 12:00 76 09/02/16 11:55 100 40 Labs: Laboratory Tests Test 09/03/16 08:05 Potassium Level 3.0 MEQ/L (3.5-5.1) Result Diagram: 09/01/16 2329 09/03/16 0805 Telemetry: NSR (1) Pulmonary edema Plan: on scheduled lasix (2) History of bacterial endocarditis Plan: BC neg (3) Mitral and aortic valve regurgitation Plan: eval per Dr Meier / await re-eval after pt extubated (4) Dvt femoral (deep venous thrombosis) (5) Pulmonary embolism, bilateral Plan: on lovenox (6) CHF due to valvular disease Edith Adorno Sep 03, 2016 10:59
[2016-09-03] MEDS: POTASSIUM CHLOR 40 MEQ PREMIX 100 ML IV PRN ×2 (12:29→16:16)
--- NOTE | 2016-09-03 16:12 | HHI.IDPN ---
Subjective Subjective Remarks Notes reviewed D/W RN Had cardiac arrest 08/31 PM, successfully resuscitated, intubated Extubated 09/01, but reintubated 09/01 PM for respiratory distress. Just got extubated at 3 pm today She is very agitated, and sounds very congested; has a very moist cough Afebrile On pressors BC are negative On nasal O2 Repeat CTA with violeta effusions and consolidations and violeta PE Antibiotics None Lines PIV Past Medical History Prolonged hospitalization from October 18 to December 24, 2015 for infective endocarditis and subsequent complications Prolonged hospitalization from Jun 22 - Jul 23 for CHF and cervical discitis History of severe sepsis, with respiratory failure Septic emboli to the brain lungs spleen Right frontal subarachnoid hemorrhage Bilateral sacroiliitis CVA with residual left hemiplegia Residual vegetation on echo done on 08/07/16, also moderate to severe AR, severe MR (patient had OP follow up to see Dr. Perez) Past Surgical History History of discitis status post ACDF by Dr. 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 Vital Signs Date Time Temp Pulse Resp B/P Pulse Ox O2 Delivery O2 Flow Rate FiO2 09/03/16 15:03 98 Nasal Cannula 4 36 09/03/16 14:00 112 09/03/16 12:00 35 09/03/16 12:00 99.1 91 8 103/58 98 09/03/16 12:00 91 09/03/16 10:00 76 09/03/16 08:00 76 09/03/16 08:00 35 09/03/16 08:00 98.9 76 20 118/66 99 09/03/16 07:34 100 35 09/03/16 07:00 75 119/72 Arterial Line 09/03/16 06:00 76 09/03/16 04:01 100 40 09/03/16 04:00 99.0 76 20 109/57 98 09/03/16 04:00 40 09/03/16 04:00 76 09/03/16 02:00 79 09/03/16 01:00 98 40 09/03/16 00:00 77 09/03/16 00:00 98.0 77 20 102/56 98 09/03/16 00:00 40 09/02/16 22:00 78 09/02/16 20:01 99 40 09/02/16 20:00 40 09/02/16 20:00 92 09/02/16 20:00 98.9 92 22 100/51 99 09/02/16 18:00 79 09/02/16 09/02/16 09/03/16 14:59 22:59 06:59 Intake Total 995 ml 276 ml 522 ml Output Total 2350 ml 2450 ml 2750 ml Balance -1355 ml -2174 ml -2228 ml IV Total 905 ml 276 ml 522 ml Other 90 ml Output Urine Total 2350 ml 2450 ml 2750 ml # Bowel Movements 0 0 0 . Laboratory Tests Test 09/01/16 23:29 White Blood Count 9.2 TH/MM3 Red Blood Count 4.35 MIL/MM3 Hemoglobin 13.8 GM/DL Hematocrit 44.8 % Mean Corpuscular Volume 102.8 FL Mean Corpuscular Hemoglobin 31.6 PG Mean Corpuscular Hemoglobin 30.7 % Concent Red Cell Distribution Width 21.5 % Platelet Count 99 TH/MM3 Mean Platelet Volume 10.1 FL Neutrophils (%) (Auto) 56.4 % Lymphocytes (%) (Auto) 38.2 % Monocytes (%) (Auto) 4.3 % Eosinophils (%) (Auto) 0.3 % Basophils (%) (Auto) 0.8 % Neutrophils # (Auto) 5.2 TH/MM3 Lymphocytes # (Auto) 3.5 TH/MM3 Monocytes # (Auto) 0.4 TH/MM3 Eosinophils # (Auto) 0.0 TH/MM3 Basophils # (Auto) 0.1 TH/MM3 CBC Comment DIFF FINAL Differential Comment Laboratory Tests Test 09/01/16 09/02/16 09/02/16 09/03/16 23:29 02:50 16:00 08:05 Sodium Level 137 MEQ/L 145 MEQ/L Potassium Level 4.5 MEQ/L 2.9 MEQ/L 3.0 MEQ/L Chloride Level 98 MEQ/L 103 MEQ/L Carbon Dioxide Level 18.3 MEQ/L 32.8 MEQ/L Anion Gap 21 MEQ/L 9 MEQ/L Blood Urea Nitrogen 15 MG/DL 16 MG/DL Creatinine 1.33 MG/DL 1.28 MG/DL 1.06 MG/DL Estimat Glomerular Filtration 48 ML/MIN 50 ML/MIN 62 ML/MIN Rate Random Glucose 263 MG/DL 74 MG/DL Lactic Acid Level 13.1 mmol/L 8.3 mmol/L Calcium Level 7.9 MG/DL 8.2 MG/DL Magnesium Level 1.9 MG/DL Imaging Head CT 09/01/16 0000 Signed Impressions: Service Date/Time: Thursday, September 01, 2016 03:23 - CONCLUSION: Stable CT brain with unchanged areas of low attenuation more notably within the right middle lobe. These are likely related to areas of old infarction. No acute intracranial abnormality. Abram Reyes MD CT Angiography 09/01/16 0000 Signed Impressions: Service Date/Time: Thursday, September 01, 2016 10:23 - CONCLUSION: 1. Bilateral consolidation and effusions. 2. Bilateral lower lobe pulmonary emboli. Jonny Neal MD Chest X-Ray 08/31/16 0000 Signed Impressions: Service Date/Time: Wednesday, August 31, 2016 23:01 - CONCLUSION: Cardiomegaly with bibasilar densities and small pleural effusions. Support lines and tubes as described above. Abram Reyes MD Lower Extremity Ultrasound 08/29/16 0000 Signed Impressions: Service Date/Time: Monday, August 29, 2016 21:13 - CONCLUSION: 1. No evidence for DVT. Jonny Neal MD Physical Exam GENERAL: awake, very restless, has restraints in her UE; has a very moist cough SKIN: Cool and dry. No generalized rash, no ecchymosis. No embolic lesions noted. HEENT: [place] conjunctivae, no petechia or hemorrhage. No scleral icterus. Moist oral mucosa. NECK: Trachea midline. No JVD or lymphadenopathy. Supple, nontender, no meningeal signs. CARDIOVASCULAR: Regular rate and rhythm without gallops, or rubs. Has systolic murmur over L precordium and at base of heart, tachycardic, no rub. RESPIRATORY: .Diffuse rhonchi GASTROINTESTINAL: Abdomen soft, nondistended, bowel sounds present and normoactive. No guarding. No rebound. MUSCULOSKELETAL: Extremities without clubbing, or cyanosis, trace edema NEUROLOGICAL: very restless PSYCH: calm and cooperative LINE: PIV with no evidence of infection : Carter cath in place, urine looks clear Assessment & Plan Remarks IMPRESSION Bilateral pulmonary infiltrates, likely pumonary edema due to her severe valvular heart disease from previous IE - 2 D echo showed diffuse hypokinesis, mod AI, mod to severe MR Hx MV and AV IE, previous ly had MRSA Oct 2015 S/P Rx, and Strep viridans Jun 2016 - completed treatment clinical picture not favouring PNA Hx MDR PSAE, MRSA infection Previous episode of C diff colitis Respiratory failure, has been intubated 2x S/P cardiac arrest 08/31 RECOMMENDATION Monitor off Abx MOnitor respiratory status Current work-up not showing any blood stream infection or recurrent endocarditis Monitor temps D/W RN Kenia Parson MD Sep 03, 2016 16:12 Kenia Parson MD Sep 03, 2016 16:12
[2016-09-03] MEDS ORDERED: ACETAMINOPHEN 1000 MG/100 ML VIAL IV ONE (18:00)
[2016-09-03] MEDS: HALOPERIDOL LACTATE 5 MG/ML AMP IV PRN (18:09)
[2016-09-03 22:35] LABS: BICARBONATE 31.3 MEQ/L (21.0-32.0); POTASSIUM 4.4 MEQ/L (3.5-5.1)
[2016-09-04] VITALS (14 sets, daily range): BP systolic 92–121; BP diastolic 49–69; PULSE 74–108; RESP 18–31; TEMP 97.9–98.5; O2SAT 98–100
[2016-09-04] MEDS: RESP: ALBUTEROL 2.5 MG/IPRATROPIUM 0.5 MG NEB (SCH) NEB ×4 (03:34→21:05)
[2016-09-04] MEDS: CHLORHEXIDINE GLUCONATE 2 % 1 PACK (2 CLOTHS) TOP SCH (04:00)
[2016-09-04] MEDS: FUROSEMIDE 40 MG/4 ML VIAL IV PUSH SCH ×3 (05:27→20:31)
[2016-09-04] MEDS: CHLORHEXIDINE 0.12% (ORAL KIT) 15 ML CUP MT SCH ×2 (08:00→19:37)
[2016-09-04] MEDS: SODIUM CHLORIDE 0.9% FLUSH 5 ML FLUSH IVF SCH ×2 (09:09→20:31)
[2016-09-04] MEDS: ENOXAPARIN SODIUM 80 MG/0.8 ML SYRINGE SQ SCH (09:09)
[2016-09-04] MEDS: PANTOPRAZOLE SODIUM 40 MG VIAL IV SCH (09:09)
--- NOTE | 2016-09-04 09:11 | PD.CAR.PN ---
CVT Progress Note Subjective/Hospital Course: Patient well-known to our service. 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 She has had numerous hospitalizations secondary to complications from the SBE. She is a high-risk surgical candidate secondary to her clinical comorbidities and social behaviors. She has no complaints this morning. 09/01/16 Events overnight noted with cardiac arrest, CPR, etc Patient intubated on vent 1/2 pt was extubated then reintubated after 8 hours now on CPAP, awake and following commands CTA chest noted/ Bilateral PE now on lovenox neg : urine drug tox screen on scheduled lasix, potassium being replaced 1/3 pt extubated yesterday, now on 2 liter nasal cannula congested cough, needs aggressive pulm toileting cultures neg to date recommend PT/ OOB will discuss timing of surgery with Dr Meier Objective: GENERAL: awake alert to name date SKIN: Warm and dry. HEAD: Normocephalic. EYES: No scleral icterus. No injection or drainage. NECK: Supple, trachea midline. No JVD or lymphadenopathy. CARDIOVASCULAR: 3/6 sm Regular rate and rhythm edema left arm RESPIRATORY: few coarse bilateral breath sounds GASTROINTESTINAL: Abdomen soft, non-tender, nondistended. MUSCULOSKELETAL: No cyanosis, or edema. BACK: Nontender without obvious deformity. No CVA tenderness. Vital Signs Date Time Temp Pulse Resp B/P Pulse Ox O2 Delivery O2 Flow Rate FiO2 09/04/16 08:01 98 Nasal Cannula 2.00 09/04/16 08:00 95 121/52 09/04/16 08:00 89 09/04/16 08:00 98.0 83 18 110/57 100 09/04/16 06:00 86 09/04/16 04:00 89 09/04/16 04:00 98.5 89 20 115/69 100 09/04/16 00:00 98.4 78 18 99/57 98 09/04/16 00:00 74 09/03/16 22:00 88 09/03/16 20:00 104 09/03/16 20:00 97 121/52 09/03/16 20:00 99.4 96 11 120/60 97 09/03/16 19:15 96 3.00 09/03/16 19:00 97 121/52 09/03/16 18:39 19 09/03/16 18:00 135 09/03/16 16:00 100.6 117 24 114/63 96 09/03/16 16:00 117 09/03/16 15:03 98 Nasal Cannula 4 36 09/03/16 14:00 112 09/03/16 12:00 35 09/03/16 12:00 99.1 91 8 103/58 98 09/03/16 12:00 91 09/03/16 10:00 76 Labs: Laboratory Tests Test 09/03/16 09/04/16 22:00 04:00 Sodium Level 146 MEQ/L (136-145) Potassium Level 4.4 MEQ/L (3.5-5.1) Chloride Level 110 MEQ/L (98-107) Carbon Dioxide Level 31.3 MEQ/L (21.0-32.0) Anion Gap 5 MEQ/L (5-15) Blood Urea Nitrogen 15 MG/DL (7-18) Creatinine 1.11 MG/DL 1.10 MG/DL (0.50-1.00) (0.50-1.00) Estimat Glomerular Filtration 59 ML/MIN (>89) 60 ML/MIN (>89) Rate Random Glucose 80 MG/DL (74-106) Calcium Level 8.1 MG/DL (8.5-10.1) Result Diagram: 09/01/16 2329 09/04/16 0400 (1) Pulmonary edema Plan: on scheduled lasix (2) History of bacterial endocarditis Plan: BC neg (3) Mitral and aortic valve regurgitation Plan: eval per Dr Meier for timing of surgery (4) Dvt femoral (deep venous thrombosis) (5) Pulmonary embolism, bilateral Plan: on lovenox (6) CHF due to valvular disease Edith Adorno Sep 04, 2016 09:11
--- NOTE | 2016-09-04 11:55 | HHI.CCPN ---
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 status post previous antibiotic therapy who presented to the ER with worsening shortness of breath which has been progressing over the last few months. She was evaluated at her primary care physician's office today and was advised to come to the ER. Patient was noted to be tachycardic with heart rate in the 130s respiratory rate 30s with significant edema on arrival. She was placed on nasal cannula initially however subsequently due to worsening respiratory status was placed on BiPAP. She received Lasix 80 mg IV and weight 1600 cc of urine in the ER. Patient was accepted for admission by critical care medicine service. When I evaluated the patient she was on BiPAP with full facemask, sitting up in the ER stretcher. Subjective: 08/31: diuresed net 10L negative yesterday with tid lasix dosing. on nasal cannula. feels much better. tolerating a diet. cardiac surgery evaluated her and will plan for AVR next week. 09/01: doing well yesterday afternoon, and was planning on transferring to hospitalist service and floor today. however, at 22:20, sustained a cardiac arrest. reviewing telemetry, it appears she went into unstable V Tach which then converted into a PEA arrest. CPR was performed for approximately 8 minutes with 2 rounds of epinephrine after which ROSC was obtained. She was emergently intubated and central line/art line were placed. This morning, she is off vasopressors, not hypoxic. she is starting to arouse and is briskly purposeful, although not following commands. Her electrolytes were aggressively replaced yesterday for severe hypokalemia, although her recheck potassium was normal. This morning, her K is again severely low. I have seen the patient and have ordered a STAT CT pulmonary angiogram. She had a negative CT PE done on 08/29 along with a negative LE u/s for DVT. 09/02: was extubated yesterday, completely at neurologic baseline. doing well on NC o2. diuresing. last night was reintubated for resp distress. also had received versed prn prior to this. still volume overloaded this AM. following commands. hypoxia improved. net 2L negative. 09/03: remained intubated yesterday for concerns over intravascular volume overload. net -5L. doing well this morning, though agitated. RASS +1, but CAM - . She does not want to remain intubated, though I am concerned about her recurrent flash pulmonary edema. 09/04: extubated yesterday. doing well on NC o2. still somewhat agitated. -4L/24h yesterday. Cr only slightly increased. Objective Vital Signs Date Time Temp Pulse Resp B/P Pulse Ox O2 Delivery O2 Flow Rate FiO2 09/04/16 10:00 86 09/04/16 09:42 18 09/04/16 08:01 98 Nasal Cannula 2.00 09/04/16 08:00 121/52 09/04/16 08:00 98.0 09/03/16 15:03 36 Intake and Output 09/03/16 09/03/16 09/04/16 08:00 16:00 00:00 Intake Total 522 ml 586 ml 268 ml Output Total 2750 ml 2550 ml 1000 ml Balance -2228 ml -1964 ml -732 ml Result Diagram: 09/01/16 2329 09/04/16 0400 Imaging Last Impressions Chest X-Ray 08/29/162034 Signed Impressions: Service Date/Time: Monday, August 29, 2016 20:47 - CONCLUSION: Airspace disease and effusions. Jonny Neal MD CT Angiography 08/29/162034 Signed Impressions: Service Date/Time: Monday, August 29, 2016 22:24 - CONCLUSION: 1. There is no evidence for pulmonary embolism within the main pulmonary arteries. Evaluation of the lower lobe subsegmental branches however is significantly limited and PE cannot be confidently excluded on the basis of this examination. 2. Bilateral pleural effusions and patchy bilateral pulmonary infiltrates are identified. Jonny Neal MD Objective Remarks GENERAL: Young female, lying in bed, on NC o2. HEENT: Pupils are equal, 2 mm, reactive, conjugate. Mucous membranes are moist. NECK: Trachea is midline. There is a left subclavian triple-lumen catheter, site is clean, dressing intact. CHEST: Equal chest rise. clear to auscultation. CARDIOVASCULAR: normal rate, regular rhythm. ABDOMEN: Soft, nontender, nondistended. No guarding. MUSCULOSKELETAL: 1+ pitting edema. Distal pulses are 2+. NEUROLOGICAL: RASS +1. CAM -. Follows commands on left, neurologically at baseline. A/P Assessment and Plan Assessment: This is a 26-year-old female with history of endocarditis status post appropriate therapy and subsequently with severe aortic regurgitation, moderate mitral regurgitation, severe biventricular dysfunction. now with respiratory failure x 2 requiring re-intubation. It appears that the majority of her problems are related to intravascular volume overload and congestive failure secondary to her severe AI. She was successfully extubated again yesterday, and her diuresis continues. Her creatinine has slowly increased, though her volume status and hemodynamics are so tenuous, as evidenced by her decompensation twice this last week, that I think we should continue forced diuresis today. We will continue diamox and lasix for alkalosis and total volume overload. We will consult PT and get her out of bed. We will keep her in the ICU today, as she has proven to be very high risk for decompensation. Plan by systems: Neurologic: Chronic pain IV drug abuse History of CVA with residual left-sided weakness --tylenol, oxy, dilaudid as needed for pain. --avoid benzos. CT head 09/01 negative acute Respiratory: Acute hypoxic and hypercarbic respiratory failure- resolving. Bilateral lower lobe subsegmental pulmonary embolism 09/01 CT PE: bilateral lower lobe emboli --wean oxygen by NC for goal spo2 > 92% --continue forced diuresis as below. 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 Lovenox 1.5 mg/kg subcutaneous every 24 Cardiology following: Dr. Kelly Cardiac surgery following: Dr. Meier. Plan was for aortic valve replacement next week. This made need to be put on hold given her acute decompensation Renal: Acute Kidney Injury Acute intravascular volume overload Metabolic alkalosis- likely 2/2 intravascular contraction. --likely 2/2 recent cardiac arrest, slowly resolving. Every hour urine outputs and strict I's and O's in the setting of recent arrest. -- Strict I/Os --lasix 40mg iv q8h for forced diuresis: goal at least 2L negative/24h. --diamox 500 iv q8h x 3 doses. FEN/GI: Acute intravascular volume overload Acute life-threatening hypokalemia Acute protein calorie malnutritionmoderate Saline lock IV fluids ICU electrolyte protocol Aggressively replace potassium We'll recheck potassium this afternoon --Lasix as above. Daily BMP Heme/ID: History of nonocclusive left femoral vein DVT 08/20 History of MRSA endocarditis Possible healthcare associated pneumonia Cultures have been negative 48 hours. ID on board. --abx discontinued 09/02. monitor fever curve. Lovenox 1.5 mg/kg subcutaneous every 24 hours (75 mg) Daily CBC Endocrine: Hyperglycemia of critical illness -- SSI, every 6 hours, medium scale Prophylaxis: GI Prophylaxis Protonix 40 mg IV daily 24 hours DVT Prophylaxis -- SCDs Therapeutic Lovenox Lines: 09/01 left subclavian triple-lumen catheter Carter Dispo: Remain in the ICU. David Lynn MD Sep 04, 2016 11:54
[2016-09-04] MEDS: HALOPERIDOL LACTATE 5 MG/ML AMP IV PRN (16:45)
[2016-09-04 17:49] LABS: BICARBONATE 27.2 MEQ/L (21.0-32.0); MAGNESIUM 2.2 MG/DL (1.5-2.5); POTASSIUM 3.3 MEQ/L (3.5-5.1)
[2016-09-05] VITALS (15 sets, daily range): BP systolic 97–119; BP diastolic 54–57; PULSE 88–105; RESP 18–28; TEMP 97.6–98.4; O2SAT 91–99
[2016-09-05] MEDS: CHLORHEXIDINE GLUCONATE 2 % 1 PACK (2 CLOTHS) TOP SCH ×2 (03:14→22:20)
[2016-09-05] MEDS: RESP: ALBUTEROL 2.5 MG/IPRATROPIUM 0.5 MG NEB (SCH) NEB ×4 (03:20→21:17)
[2016-09-05] MEDS: FUROSEMIDE 40 MG/4 ML VIAL IV PUSH SCH ×3 (04:13→20:26)
[2016-09-05 04:54] LABS: HEMATOCRIT 42.3 % (35.0-46.0); MEAN CORPUSCULAR HEMOGLOBIN 31.1 PG (27.0-34.0); MEAN CORPUSCULAR HGB CONC 31.4 % (32.0-36.0); PLATELET COUNT 127 TH/MM3 (150-450); RED BLOOD COUNT 4.27 MIL/MM3 (4.00-5.30); REVIEW FLAG FINAL; WHITE BLOOD COUNT 6.5 TH/MM3 (4.0-11.0)
[2016-09-05 05:08] LABS: BICARBONATE 27.6 MEQ/L (21.0-32.0); POTASSIUM 3.4 MEQ/L (3.5-5.1)
[2016-09-05] MEDS: CHLORHEXIDINE 0.12% (ORAL KIT) 15 ML CUP MT SCH ×2 (08:00→19:30)
[2016-09-05] MEDS: HALOPERIDOL LACTATE 5 MG/ML AMP IV PRN ×2 (09:05→20:26)
--- NOTE | 2016-09-05 09:47 | HHI.IDPN ---
Subjective Subjective Remarks Notes reviewed D/W RN Temps ok Off Abx Having episodes of panic attacks, got Haldol, currently very calm States breathing a little better Has diuresed a total of about 27.9L since admission Mild CP, minimal cough No abdominal pain Off neosynephrine since yesterday Had cardiac arrest 08/31 PM, successfully resuscitated Extubated 09/01, but reintubated 09/01 PM for respiratory distress. Extubated 1/2 Antibiotics None Lines PIV Past Medical History Prolonged hospitalization from October 18 to December 24, 2015 for infective endocarditis and subsequent complications Prolonged hospitalization from Jun 22 - Jul 23 for CHF and cervical discitis History of severe sepsis, with respiratory failure Septic emboli to the brain lungs spleen Right frontal subarachnoid hemorrhage Bilateral sacroiliitis CVA with residual left hemiplegia Residual vegetation on echo done on 08/07/16, also moderate to severe AR, severe MR (patient had OP follow up to see Dr. Perez) Past Surgical History History of discitis status post ACDF by Dr. Cope on July 09, 2016 Allergies: Coded Allergies: *MDRO Multi-Drug Resistant Organism (Verified Adverse Reaction, Unknown, 08/29/16) MRSA PCR screen positive - 10/18/2015 & 08/12/16 MRSA urine, blood, sputum and CSF- 10/2015 MDR PSAE in sputum 2015 Objective . Vital Signs Date Time Temp Pulse Resp B/P Pulse Ox O2 Delivery O2 Flow Rate FiO2 09/05/16 09:37 98 Nasal Cannula 2.00 09/05/16 08:00 97.6 105 22 104/57 97 09/05/16 08:00 104 09/05/16 06:00 100 09/05/16 04:00 98.2 104 28 119/56 93 09/05/16 04:00 104 09/05/16 02:00 97 09/05/16 00:00 98.4 99 20 98/55 95 09/05/16 00:00 99 09/04/16 22:00 108 09/04/16 21:06 100 21 09/04/16 20:00 87 09/04/16 20:00 98.0 87 31 97/49 100 09/04/16 18:00 89 09/04/16 17:45 20 09/04/16 16:09 98.0 100 20 92/65 99 09/04/16 16:00 89 09/04/16 14:00 89 09/04/16 12:00 97.9 95 18 99/63 98 09/04/16 12:00 89 09/04/16 10:00 86 09/04/16 09/04/16 09/05/16 15:00 23:00 07:00 Intake Total 407 ml 314 ml 915 ml Output Total 1900 ml 1600 ml 350 ml Balance -1493 ml -1286 ml 565 ml Intake Oral 120 ml 240 ml 480 ml IV Total 287 ml 74 ml 435 ml Output Urine Total 1900 ml 1600 ml 350 ml # Bowel Movements 0 . Laboratory Tests Test 09/05/16 04:05 White Blood Count 6.5 TH/MM3 Red Blood Count 4.27 MIL/MM3 Hemoglobin 13.3 GM/DL Hematocrit 42.3 % Mean Corpuscular Volume 99.0 FL Mean Corpuscular Hemoglobin 31.1 PG Mean Corpuscular Hemoglobin 31.4 % Concent Red Cell Distribution Width 21.0 % Platelet Count 127 TH/MM3 Mean Platelet Volume 9.2 FL Laboratory Tests Test 09/03/16 09/04/16 09/04/16 09/04/16 22:00 04:00 15:28 20:11 Sodium Level 146 MEQ/L 146 MEQ/L Potassium Level 4.4 MEQ/L 3.3 MEQ/L 3.0 MEQ/L Chloride Level 110 MEQ/L 109 MEQ/L Carbon Dioxide Level 31.3 MEQ/L 27.2 MEQ/L Anion Gap 5 MEQ/L 10 MEQ/L Blood Urea Nitrogen 15 MG/DL 16 MG/DL Creatinine 1.11 MG/DL 1.10 MG/DL 1.08 MG/DL Estimat Glomerular Filtration 59 ML/MIN 60 ML/MIN 61 ML/MIN Rate Random Glucose 80 MG/DL 149 MG/DL Calcium Level 8.1 MG/DL 8.2 MG/DL Magnesium Level 2.2 MG/DL Phosphorus Level 1.3 MG/DL Test 09/05/16 04:05 Sodium Level 147 MEQ/L Potassium Level 3.4 MEQ/L Chloride Level 108 MEQ/L Carbon Dioxide Level 27.6 MEQ/L Anion Gap 11 MEQ/L Blood Urea Nitrogen 15 MG/DL Creatinine 1.04 MG/DL Estimat Glomerular Filtration 64 ML/MIN Rate Random Glucose 134 MG/DL Calcium Level 7.7 MG/DL Phosphorus Level 2.6 MG/DL Imaging Head CT 09/01/16 0000 Signed Impressions: Service Date/Time: Thursday, September 01, 2016 03:23 - CONCLUSION: Stable CT brain with unchanged areas of low attenuation more notably within the right middle lobe. These are likely related to areas of old infarction. No acute intracranial abnormality. Abram Reyes MD CT Angiography 09/01/16 0000 Signed Impressions: Service Date/Time: Thursday, September 01, 2016 10:23 - CONCLUSION: 1. Bilateral consolidation and effusions. 2. Bilateral lower lobe pulmonary emboli. Jonny Neal MD Chest X-Ray 08/31/16 0000 Signed Impressions: Service Date/Time: Wednesday, August 31, 2016 23:01 - CONCLUSION: Cardiomegaly with bibasilar densities and small pleural effusions. Support lines and tubes as described above. Abram Reyes MD Lower Extremity Ultrasound 08/29/16 0000 Signed Impressions: Service Date/Time: Monday, August 29, 2016 21:13 - CONCLUSION: 1. No evidence for DVT. Jonny Neal MD Physical Exam GENERAL: awake, calm and cooperative, not in distress, on nasal O2 SKIN: Cool and dry. No generalized rash. No embolic lesions noted. HEENT: [place] conjunctivae, no petechia or hemorrhage. No scleral icterus. Moist oral mucosa. NECK: Trachea midline. Supple, nontender, no meningeal signs.Heart sounds difficult to hear due to coarse rhonchi on L side. RESPIRATORY: Coarse rhonchi L side, decreased BS R side GASTROINTESTINAL: Abdomen soft, nondistended, bowel sounds present and normoactive. No guarding. No rebound. MUSCULOSKELETAL: Extremities without clubbing, or cyanosis. No edema in BLE. LUE edematous. NEUROLOGICAL: very restless PSYCH: calm and cooperative LINE: PIV with no evidence of infection : Carter cath in place, urine looks clear Assessment & Plan Remarks IMPRESSION Bilateral pulmonary infiltrates, likely pumonary edema due to her severe valvular heart disease from previous IE - 2 D echo showed diffuse hypokinesis, mod AI, mod to severe MR Hx MV and AV IE, previous ly had MRSA Oct 2015 S/P Rx, and Strep viridans Jun 2016 - completed treatment - currently no evidenc of active endocarditis Clinical picture not favouring PNA Hx MDR PSAE, MRSA infection Previous episode of C diff colitis Respiratory failure, has been intubated 2x S/P cardiac arrest 08/31 Swelling LUE, R/O DVT RECOMMENDATION Monitor off Abx Monitor respiratory status Current work-up not showing any blood stream infection or recurrent endocarditis Monitor temps Awaiting CTS evaluation for valve surgery - evaluating timing of surgery Doppler US Kenia Ernst RN, MD Sep 05, 2016 09:47 Current work-up not showing any blood stream infection or recurrent endocarditis Monitor temps Awaiting CTS evaluation for valve surgery - evaluating timing of surgery Doppler US Kenia Ernst RN, MD Sep 05, 2016 09:47
--- NOTE | 2016-09-05 10:37 | ECHLIM ---
Study Study Date:09/04/2016 STUDY CONCLUSIONS SUMMARY MITRAL VALVE: Limited echo of the mitral valve was done for help with planning possible surgery, please refer to previous echos for all other structure/function. Regurgitation appears to be mostly at scalp A1 with some minimal at A3. Reguritant jet appears to go posterior correlating with anterior mitral valve leaflet pathology. If LV function is below 40, please consider prescribing an ACEI or ARB or document rationale for non-use. PROCEDURE DATA Procedure: Transthoracic echocardiography. Image quality was good. Scanning was performed from the parasternal, apical, and subcostal acoustic windows. Study completion: The patient tolerated the procedure well. Transthoracic echocardiography. M-mode, limited 2D, limited spectral Doppler, and color Doppler. CARDIAC ANATOMY MITRAL VALVE: Limited echo of the mitral valve was done for help with planning possible surgery, please refer to previous echos for all other structure/function. Regurgitation appears to be mostly at scalp A1 with some minimal at A3. Reguritant jet appears to go posterior correlating with anterior mitral valve leaflet pathology. Prepared and signed by Pete Blanc [id number]
[2016-09-05] MEDS: SODIUM CHLORIDE 0.9% FLUSH 5 ML FLUSH IVF SCH ×2 (10:52→20:28)
[2016-09-05] MEDS: PANTOPRAZOLE SODIUM 40 MG VIAL IV SCH (10:52)
[2016-09-05] MEDS: ENOXAPARIN SODIUM 80 MG/0.8 ML SYRINGE SQ SCH (10:52)
--- NOTE | 2016-09-05 11:38 | PD.CAR.PN ---
CVT Progress Note Subjective/Hospital Course: Patient well-known to our service. 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 She has had numerous hospitalizations secondary to complications from the SBE. She is a high-risk surgical candidate secondary to her clinical comorbidities and social behaviors. She has no complaints this morning. 09/01/16 Events overnight noted with cardiac arrest, CPR, etc Patient intubated on vent 09/03 pt was extubated then reintubated after 8 hours now on CPAP, awake and following commands CTA chest noted/ Bilateral PE now on lovenox neg : urine drug tox screen on scheduled lasix, potassium being replaced 09/04 pt extubated yesterday, now on 2 liter nasal cannula congested cough, needs aggressive pulm toileting cultures neg to date recommend PT/ OOB will discuss timing of surgery with Dr Meier 09/05 All labs / xrays / micro reviewed with Dr Meier pt is on nasal cannula, weak, requires assistance to get OOB side steps with walker Dr Meier spoke with Mother Mony Barrios via phone/ with witness and to pt herself procedures alternatives and risks discussed pt scheduled for AVR, MVR vs replacement on saturday she will require aggressive rehab post surgery Objective: GENERAL: frail appearing female SKIN: Warm and dry./ pale HEAD: Normocephalic. EYES: No scleral icterus. No injection or drainage. NECK: Supple, trachea midline. No JVD or lymphadenopathy. CARDIOVASCULAR: Regular rate and rhythm 3/6 sm edema left arm , RESPIRATORY: coarse bilateral breath sounds No accessory muscle use. GASTROINTESTINAL: Abdomen soft, non-tender, nondistended. MUSCULOSKELETAL: No cyanosis, or edema. BACK: Nontender without obvious deformity. No CVA tenderness. Vital Signs Date Time Temp Pulse Resp B/P Pulse Ox O2 Delivery O2 Flow Rate FiO2 09/05/16 09:37 98 Nasal Cannula 2.00 09/05/16 08:00 97.6 105 22 104/57 97 09/05/16 08:00 104 09/05/16 06:00 100 09/05/16 04:00 98.2 104 28 119/56 93 09/05/16 04:00 104 09/05/16 02:00 97 09/05/16 00:00 98.4 99 20 98/55 95 09/05/16 00:00 99 09/04/16 22:00 108 1/3/17 21:06 100 21 09/04/16 20:00 87 09/04/16 20:00 98.0 87 31 97/49 100 09/04/16 18:00 89 09/04/16 17:45 20 09/04/16 16:09 98.0 100 20 92/65 99 09/04/16 16:00 89 09/04/16 14:00 89 09/04/16 12:00 97.9 95 18 99/63 98 09/04/16 12:00 89 Labs: Laboratory Tests Test 09/05/16 04:05 White Blood Count 6.5 TH/MM3 (4.0-11.0) Red Blood Count 4.27 MIL/MM3 (4.00-5.30) Hemoglobin 13.3 GM/DL (11.6-15.3) Hematocrit 42.3 % (35.0-46.0) Mean Corpuscular Volume 99.0 FL (80.0-100.0) Mean Corpuscular Hemoglobin 31.1 PG (27.0-34.0) Mean Corpuscular Hemoglobin 31.4 % Concent (32.0-36.0) Red Cell Distribution Width 21.0 % (11.6-17.2) Platelet Count 127 TH/MM3 (150-450) Mean Platelet Volume 9.2 FL (7.0-11.0) Sodium Level 147 MEQ/L (136-145) Potassium Level 3.4 MEQ/L (3.5-5.1) Chloride Level 108 MEQ/L (98-107) Carbon Dioxide Level 27.6 MEQ/L (21.0-32.0) Anion Gap 11 MEQ/L (5-15) Blood Urea Nitrogen 15 MG/DL (7-18) Creatinine 1.04 MG/DL (0.50-1.00) Estimat Glomerular Filtration 64 ML/MIN (>89) Rate Random Glucose 134 MG/DL (74-106) Calcium Level 7.7 MG/DL (8.5-10.1) Phosphorus Level 2.6 MG/DL (2.5-4.9) Result Diagram: 09/05/16 0405 09/05/16 0405 Telemetry: NSR ST (1) Pulmonary edema Plan: on scheduled lasix (2) History of bacterial endocarditis Plan: BC neg (3) Mitral and aortic valve regurgitation Plan: scheduled for AVR, mitral valve replacement vs mitral repair on saturday (4) Dvt femoral (deep venous thrombosis) (5) Pulmonary embolism, bilateral Plan: on lovenox/ hold prior to surgery (6) CHF due to valvular disease (7) Hx of cerebral embolic infarction Plan: left sided weakness, will need aggressive rehab PT/OT post surgery Edith Adorno Sep 05, 2016 11:38
[2016-09-05] MEDS ORDERED: SODIUM CHLORIDE 0.9% FLUSH 5 ML FLUSH IV FLUSH PRN (11:45)
[2016-09-05] MEDS ORDERED: ceFAZolin 2 GM PREMIX 50 ML IV SCH (11:45)
[2016-09-05] MEDS ORDERED: INSULIN REGULAR (IV INFUSION) 100 UNITS in SODIUM CHLORIDE 0.9% INJ 100 ML IV SCH (11:45)
[2016-09-05] MEDS ORDERED: CHLORHEXIDINE GLUCONATE 4% SOLN 120 ML BTL TOPICAL SCH (11:45)
[2016-09-05] MEDS ORDERED: CEFAZOLIN INJ 500 MG in SODIUM CHLORIDE 0.9% IRR BTL 500 ML IRRIGATION SCH (11:45)
[2016-09-05] MEDS ORDERED: METOPROLOL TARTRATE 25 MG TAB PO SCH (11:45)
[2016-09-05] MEDS: HYDROmorphone HCL PF 1 MG/ML VIAL IV PUSH PRN ×2 (12:13→21:31)
[2016-09-05] MEDS ORDERED: PILL SPLITTER OTHER PRN (12:15)
[2016-09-05] MEDS: MUPIROCIN 2% OINT 1 APPLIC/GM SYR EACH NARE SCH (20:25)
[2016-09-05] MEDS: SODIUM CHLORIDE 0.9% FLUSH 5 ML FLUSH IV FLUSH SCH (20:28)
--- NOTE | 2016-09-05 21:45 | RADRPT ---
EXAM DATE/TIME: 09/05/2016 19:42 [facility] COMPARISON: No previous studies available for comparison. INDICATIONS : Left arm swelling. MEDICAL HISTORY : Hepatitis C. Cerebrovascular accident. Endocarditis. Dyspnea. IV drug use. SURGICAL HISTORY : Spinal fusion and decompression. ENCOUNTER: Subsequent ACUITY: 1 day PAIN SCORE: 3/10 LOCATION: Left arm. FINDINGS: There is thrombus in the basilic and brachial veins of left arm. Subclavian, axillary and cephalic ve ins are patent. CONCLUSION: 1. Occlusive thrombus in the basilic and brachial veins in the left arm. Abram Reyes MD on September 05, 2016 at 21:42 Board Certified Radiologist. This report was verified electronically.
--- NOTE | 2016-09-05 22:29 | HHI.CCPN ---
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 status post previous antibiotic therapy who presented to the ER with worsening shortness of breath which has been progressing over the last few months. She was evaluated at her primary care physician's office today and was advised to come to the ER. Patient was noted to be tachycardic with heart rate in the 130s respiratory rate 30s with significant edema on arrival. She was placed on nasal cannula initially however subsequently due to worsening respiratory status was placed on BiPAP. She received Lasix 80 mg IV and weight 1600 cc of urine in the ER. Patient was accepted for admission by critical care medicine service. When I evaluated the patient she was on BiPAP with full facemask, sitting up in the ER stretcher. Subjective: 08/31: diuresed net 10L negative yesterday with tid lasix dosing. on nasal cannula. feels much better. tolerating a diet. cardiac surgery evaluated her and will plan for AVR next week. 09/01: doing well yesterday afternoon, and was planning on transferring to hospitalist service and floor today. however, at 22:20, sustained a cardiac arrest. reviewing telemetry, it appears she went into unstable V Tach which then converted into a PEA arrest. CPR was performed for approximately 8 minutes with 2 rounds of epinephrine after which ROSC was obtained. She was emergently intubated and central line/art line were placed. This morning, she is off vasopressors, not hypoxic. she is starting to arouse and is briskly purposeful, although not following commands. Her electrolytes were aggressively replaced yesterday for severe hypokalemia, although her recheck potassium was normal. This morning, her K is again severely low. I have seen the patient and have ordered a STAT CT pulmonary angiogram. She had a negative CT PE done on 08/29 along with a negative LE u/s for DVT. 09/02: was extubated yesterday, completely at neurologic baseline. doing well on NC o2. diuresing. last night was reintubated for resp distress. also had received versed prn prior to this. still volume overloaded this AM. following commands. hypoxia improved. net 2L negative. 09/03: remained intubated yesterday for concerns over intravascular volume overload. net -5L. doing well this morning, though agitated. RASS +1, but CAM - . She does not want to remain intubated, though I am concerned about her recurrent flash pulmonary edema. 09/04: extubated yesterday. doing well on NC o2. still somewhat agitated. -4L/24h yesterday. Cr only slightly increased. 09/05: doing well on NC o2. net -2.2L/24h and net -26L since admission. Cr is downtrending. I discussed her case with Dr. Blanc today and Viola with CT surgery. plan for AVR/MVR on Saturday if she continues to do well. patient has no complaints this AM. Objective Vital Signs Date Time Temp Pulse Resp B/P Pulse Ox O2 Delivery O2 Flow Rate FiO2 09/05/16 22:00 95 09/05/16 21:17 96 21 09/05/16 20:00 98.3 21 106/54 09/05/16 09:37 Nasal Cannula 2.00 Intake and Output 09/04/16 09/04/16 09/04/16 07:59 15:59 23:59 Intake Total 120 ml 407 ml 314 ml Output Total 1350 ml 1900 ml 1600 ml Balance -1230 ml -1493 ml -1286 ml Result Diagram: 09/05/165 09/05/16404 Imaging Last Impressions Chest X-Ray 08/29/162034 Signed Impressions: Service Date/Time: Monday, August 29, 2016 20:47 - CONCLUSION: Airspace disease and effusions. Jonny Neal MD CT Angiography 08/29/162034 Signed Impressions: Service Date/Time: Monday, August 29, 2016 22:24 - CONCLUSION: 1. There is no evidence for pulmonary embolism within the main pulmonary arteries. Evaluation of the lower lobe subsegmental branches however is significantly limited and PE cannot be confidently excluded on the basis of this examination. 2. Bilateral pleural effusions and patchy bilateral pulmonary infiltrates are identified. Jonny Neal MD Objective Remarks GENERAL: Young female, lying in bed, on NC o2. HEENT: Pupils are equal, 2 mm, reactive, conjugate. Mucous membranes are moist. NECK: Trachea is midline. There is a left subclavian triple-lumen catheter, site is clean, dressing intact. CHEST: Equal chest rise. clear to auscultation. CARDIOVASCULAR: normal rate, regular rhythm. ABDOMEN: Soft, nontender, nondistended. No guarding. MUSCULOSKELETAL: 1+ pitting edema. Distal pulses are 2+. NEUROLOGICAL: RASS +1. CAM -. Follows commands on left, neurologically at baseline. A/P Assessment and Plan Assessment: This is a 26-year-old female with history of endocarditis status post appropriate therapy and subsequently with severe aortic regurgitation, moderate mitral regurgitation, severe biventricular dysfunction. now with respiratory failure x 2 requiring re-intubation. It appears that the majority of her problems are related to intravascular volume overload and congestive failure secondary to her severe AI. She was successfully extubated again 09/03, and her diuresis continues. Her creatinine is downtrending. I think she would benefit from ongoing and continued diuresis in the setting of impending cardiac surgery. we will continue lasix 40mg iv q8h. Continue aggressive PT. Keep in ICU given her history of acute decompensations. Plan by systems: Neurologic: Chronic pain IV drug abuse History of CVA with residual left-sided weakness --tylenol, oxy, dilaudid as needed for pain. --avoid benzos. CT head 09/01 negative acute Respiratory: Acute hypoxic and hypercarbic respiratory failure- resolving. Bilateral lower lobe subsegmental pulmonary embolism 09/01 CT PE: bilateral lower lobe emboli --wean oxygen by NC for goal spo2 > 92% --continue forced diuresis as below. 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 Lovenox 1.5 mg/kg subcutaneous every 24 Cardiology following: Dr. Kelly Cardiac surgery following: Dr. Meier. Plan for AVR/MVR on Saturday. Renal: Acute Kidney Injury Acute intravascular volume overload Metabolic alkalosis- likely 2/2 intravascular contraction. --likely 2/2 recent cardiac arrest, slowly resolving. Every hour urine outputs and strict I's and O's in the setting of recent arrest. -- Strict I/Os --lasix 40mg iv q8h for forced diuresis: goal at least 2L negative/24h. FEN/GI: Acute intravascular volume overload Acute life-threatening hypokalemia Acute protein calorie malnutritionmoderate Saline lock IV fluids ICU electrolyte protocol Aggressively replace potassium We'll recheck potassium this afternoon --Lasix as above. Daily BMP Heme/ID: History of nonocclusive left femoral vein DVT 08/20 History of MRSA endocarditis Possible healthcare associated pneumonia Cultures have been negative 48 hours. ID on board. --abx discontinued 09/02. monitor fever curve. Lovenox 1.5 mg/kg subcutaneous every 24 hours (75 mg) Daily CBC Endocrine: Hyperglycemia of critical illness -- SSI, every 6 hours, medium scale Prophylaxis: GI Prophylaxis Protonix 40 mg IV daily 24 hours DVT Prophylaxis -- SCDs Therapeutic Lovenox Lines: 09/01 left subclavian triple-lumen catheter [facility] Dispo: Remain in the ICU. Dvaid Lynn MD Sep 05, 2016 22:29
[2016-09-05] MEDS: POTASSIUM CHLOR 40 MEQ PREMIX 100 ML IV PRN ×2 (22:45→22:52)
[2016-09-06] VITALS (14 sets, daily range): BP systolic 93–104; BP diastolic 50–64; PULSE 91–108; RESP 18–37; TEMP 98–98.6; O2SAT 97–100
[2016-09-06] MEDS: HYDROmorphone HCL PF 1 MG/ML VIAL IV PUSH PRN ×3 (02:07→19:56)
[2016-09-06] MEDS: RESP: ALBUTEROL 2.5 MG/IPRATROPIUM 0.5 MG NEB (SCH) NEB ×2 (03:08→08:40)
[2016-09-06 03:17] LABS: HEMATOCRIT 44.6 % (35.0-46.0); MEAN CELL VOLUME 96.3 FL (80.0-100.0); MEAN CORPUSCULAR HEMOGLOBIN 30.3 PG (27.0-34.0); MEAN CORPUSCULAR HGB CONC 31.5 % (32.0-36.0); PLATELET COUNT 144 TH/MM3 (150-450); RED BLOOD COUNT 4.63 MIL/MM3 (4.00-5.30); RED CELL DISTRIBUTION WIDTH 20.2 % (11.6-17.2); REVIEW FLAG FINAL; WHITE BLOOD COUNT 7.4 TH/MM3 (4.0-11.0)
[2016-09-06 03:27] LABS: APTT (PATIENT) 28.2 SEC (24.3-30.1)
[2016-09-06 03:44] LABS: BICARBONATE 24.5 MEQ/L (21.0-32.0); POTASSIUM 5.4 MEQ/L (3.5-5.1)
[2016-09-06] MEDS: FUROSEMIDE 40 MG/4 ML VIAL IV PUSH SCH ×3 (04:02→19:56)
[2016-09-06] MEDS: CHLORHEXIDINE 0.12% (ORAL KIT) 15 ML CUP MT SCH ×2 (08:00→19:22)
[2016-09-06] MEDS: SODIUM CHLORIDE 0.9% FLUSH 5 ML FLUSH IVF SCH ×2 (09:00→19:57)
[2016-09-06] MEDS: ENOXAPARIN SODIUM 80 MG/0.8 ML SYRINGE SQ SCH (09:10)
[2016-09-06] MEDS: MUPIROCIN 2% OINT 1 APPLIC/GM SYR EACH NARE SCH ×2 (09:10→19:57)
[2016-09-06] MEDS: PANTOPRAZOLE SODIUM 40 MG VIAL IV SCH (09:11)
[2016-09-06] MEDS: SODIUM CHLORIDE 0.9% FLUSH 5 ML FLUSH IV FLUSH SCH ×2 (09:12→19:57)
--- NOTE | 2016-09-06 11:29 | PD.CAR.PN ---
CVT Progress Note Subjective/Hospital Course: Patient well-known to our service. 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 She has had numerous hospitalizations secondary to complications from the SBE. She is a high-risk surgical candidate secondary to her clinical comorbidities and social behaviors. She has no complaints this morning. 09/01/16 Events overnight noted with cardiac arrest, CPR, etc Patient intubated on vent 09/03 pt was extubated then reintubated after 8 hours now on CPAP, awake and following commands CTA chest noted/ Bilateral PE now on lovenox neg : urine drug tox screen on scheduled lasix, potassium being replaced 09/04 pt extubated yesterday, now on 2 liter nasal cannula congested cough, needs aggressive pulm toileting cultures neg to date recommend PT/ OOB will discuss timing of surgery with Dr Meier 09/05 All labs / xrays / micro reviewed with Dr Meier pt is on nasal cannula, weak, requires assistance to get OOB side steps with walker Dr Meier spoke with Mother Mony Barrios via phone/ with witness and to pt herself procedures alternatives and risks discussed pt scheduled for AVR, MVR vs replacement on saturday she will require aggressive rehab post surgery 09/06 now on room air VSS, plan is for surgery in am Objective: GENERAL: thins appearing female , in no acute distress SKIN: Warm and dry. HEAD: Normocephalic. EYES: No scleral icterus. No injection or drainage. NECK: Supple, trachea midline. No JVD or lymphadenopathy. CARDIOVASCULAR: Regular rate and rhythm without murmurs, gallops, or rubs. 3/6 sm , mild edema left arm > right / RESPIRATORY: coarse bilateral breath sounds Breath sounds equal bilaterally. No accessory muscle use. GASTROINTESTINAL: Abdomen soft, non-tender, nondistended. MUSCULOSKELETAL: No cyanosis, or edema. left hand contracture BACK: Nontender without obvious deformity. No CVA tenderness. Vital Signs Date Time Temp Pulse Resp B/P Pulse Ox O2 Delivery O2 Flow Rate FiO2 09/06/16 10:00 97 09/06/16 08:41 100 21 09/06/16 08:00 94 09/06/16 08:00 98.4 94 28 96/50 97 09/06/16 06:00 95 09/06/16 04:00 100 09/06/16 04:00 98.0 100 23 104/64 97 09/06/16 02:00 101 09/06/16 00:00 98.0 94 18 93/50 97 09/06/16 00:00 94 09/05/16 22:00 95 09/05/16 21:17 96 21 09/05/16 20:00 98.3 88 21 106/54 99 09/05/16 20:00 88 09/05/16 18:00 100 09/05/16 16:40 91 21 09/05/16 16:00 98.0 92 18 102/57 99 09/05/16 16:00 96 09/05/16 14:00 100 09/05/16 12:55 20 09/05/16 12:00 96 09/05/16 12:00 97.8 94 20 97/55 98 09/05/16 11:52 18 Labs: Laboratory Tests Test 09/06/16 02:58 White Blood Count 7.4 TH/MM3 (4.0-11.0) Red Blood Count 4.63 MIL/MM3 (4.00-5.30) Hemoglobin 14.0 GM/DL (11.6-15.3) Hematocrit 44.6 % (35.0-46.0) Mean Corpuscular Volume 96.3 FL (80.0-100.0) Mean Corpuscular Hemoglobin 30.3 PG (27.0-34.0) Mean Corpuscular Hemoglobin 31.5 % Concent (32.0-36.0) Red Cell Distribution Width 20.2 % (11.6-17.2) Platelet Count 144 TH/MM3 (150-450) Mean Platelet Volume 9.0 FL (7.0-11.0) Activated Partial 28.2 SEC Thromboplast Time (24.3-30.1) Sodium Level 140 MEQ/L (136-145) Potassium Level 5.4 MEQ/L (3.5-5.1) Chloride Level 107 MEQ/L (98-107) Carbon Dioxide Level 24.5 MEQ/L (21.0-32.0) Anion Gap 9 MEQ/L (5-15) Blood Urea Nitrogen 12 MG/DL (7-18) Creatinine 0.84 MG/DL (0.50-1.00) Estimat Glomerular Filtration 81 ML/MIN (>89) Rate Random Glucose 106 MG/DL (74-106) Calcium Level 8.5 MG/DL (8.5-10.1) Result Diagram: 09/06/1625709/06/16257 (1) Pulmonary edema Plan: on scheduled lasix (2) History of bacterial endocarditis Plan: BC neg (3) Mitral and aortic valve regurgitation Plan: scheduled for AVR, mitral valve replacement vs mitral repair on saturday (4) Dvt femoral (deep venous thrombosis) (5) Pulmonary embolism, bilateral Plan: on lovenox/ hold prior to surgery (6) CHF due to valvular disease (7) Hx of cerebral embolic infarction Plan: left sided weakness, will need aggressive rehab PT/OT post surgery Edith Adorno Sep 06, 2016 11:29
--- NOTE | 2016-09-06 13:57 | HHI.CCPN ---
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 status post previous antibiotic therapy who presented to the ER with worsening shortness of breath which has been progressing over the last few months. She was evaluated at her primary care physician's office today and was advised to come to the ER. Patient was noted to be tachycardic with heart rate in the 130s respiratory rate 30s with significant edema on arrival. She was placed on nasal cannula initially however subsequently due to worsening respiratory status was placed on BiPAP. She received Lasix 80 mg IV and weight 1600 cc of urine in the ER. Patient was accepted for admission by critical care medicine service. When I evaluated the patient she was on BiPAP with full facemask, sitting up in the ER stretcher. Subjective: 08/31: diuresed net 10L negative yesterday with tid lasix dosing. on nasal cannula. feels much better. tolerating a diet. cardiac surgery evaluated her and will plan for AVR next week. 09/01: doing well yesterday afternoon, and was planning on transferring to hospitalist service and floor today. however, at 22:20, sustained a cardiac arrest. reviewing telemetry, it appears she went into unstable V Tach which then converted into a PEA arrest. CPR was performed for approximately 8 minutes with 2 rounds of epinephrine after which ROSC was obtained. She was emergently intubated and central line/art line were placed. This morning, she is off vasopressors, not hypoxic. she is starting to arouse and is briskly purposeful, although not following commands. Her electrolytes were aggressively replaced yesterday for severe hypokalemia, although her recheck potassium was normal. This morning, her K is again severely low. I have seen the patient and have ordered a STAT CT pulmonary angiogram. She had a negative CT PE done on 08/29 along with a negative LE u/s for DVT. 09/02: was extubated yesterday, completely at neurologic baseline. doing well on NC o2. diuresing. last night was reintubated for resp distress. also had received versed prn prior to this. still volume overloaded this AM. following commands. hypoxia improved. net 2L negative. 09/03: remained intubated yesterday for concerns over intravascular volume overload. net -5L. doing well this morning, though agitated. RASS +1, but CAM - . She does not want to remain intubated, though I am concerned about her recurrent flash pulmonary edema. 09/04: extubated yesterday. doing well on NC o2. still somewhat agitated. -4L/24h yesterday. Cr only slightly increased. 09/05: doing well on NC o2. net -2.2L/24h and net -26L since admission. Cr is downtrending. I discussed her case with Dr. Blanc today and Viola with CT surgery. plan for AVR/MVR on Saturday if she continues to do well. patient has no complaints this AM. 09/06: on room air today. -1.5L over 24h. now very close to 30L diuresed since admission. Cr continues to downtrend. Plan for AVR/MVR tomorrow. I have discussed with Dr. Meier today, and will discuss plan with anesthesia as well. Objective Vital Signs Date Time Temp Pulse Resp B/P Pulse Ox O2 Delivery O2 Flow Rate FiO2 09/06/16 10:00 97 09/06/16 08:41 100 21 09/06/16 08:00 98.4 28 96/50 09/05/16 09:37 Nasal Cannula 2.00 Intake and Output 09/05/16 09/05/16 09/06/16 08:00 16:00 00:00 Intake Total 915 ml 1360 ml 720 ml Output Total 350 ml 1200 ml 1650 ml Balance 565 ml 160 ml -930 ml Result Diagram: 09/06/16 0258 09/06/16 0258 Imaging Last Impressions Chest X-Ray 08/29/162034 Signed Impressions: Service Date/Time: Monday, August 29, 2016 20:47 - CONCLUSION: Airspace disease and effusions. Jonny Neal MD CT Angiography 08/29/162034 Signed Impressions: Service Date/Time: Monday, August 29, 2016 22:24 - CONCLUSION: 1. There is no evidence for pulmonary embolism within the main pulmonary arteries. Evaluation of the lower lobe subsegmental branches however is significantly limited and PE cannot be confidently excluded on the basis of this examination. 2. Bilateral pleural effusions and patchy bilateral pulmonary infiltrates are identified. Jonny Neal MD Objective Remarks GENERAL: Young female, lying in bed, on NC o2. HEENT: Pupils are equal, 2 mm, reactive, conjugate. Mucous membranes are moist. NECK: Trachea is midline. There is a left subclavian triple-lumen catheter, site is clean, dressing intact. CHEST: Equal chest rise. clear to auscultation. CARDIOVASCULAR: normal rate, regular rhythm. ABDOMEN: Soft, nontender, nondistended. No guarding. MUSCULOSKELETAL: 1+ pitting edema. Distal pulses are 2+. NEUROLOGICAL: RASS 0. CAM -. Follows commands on left, neurologically at baseline. A/P Assessment and Plan Assessment: This is a 26-year-old female with history of endocarditis status post appropriate therapy and subsequently with severe aortic regurgitation, moderate mitral regurgitation, severe biventricular dysfunction. now with respiratory failure x 2 requiring re-intubation. It appears that the majority of her problems are related to intravascular volume overload and congestive failure secondary to her severe AI. She was successfully extubated again 09/03, and her diuresis continues. Her creatinine is downtrending. I think she would benefit from ongoing and continued diuresis in the setting of impending cardiac surgery. we will continue lasix 40mg iv q8h. Continue aggressive PT. Keep in ICU given her history of acute decompensations. Plan by systems: Neurologic: Chronic pain IV drug abuse History of CVA with residual left-sided weakness --tylenol, oxy, dilaudid as needed for pain. --avoid benzos. CT head 09/01 negative acute Respiratory: Acute hypoxic and hypercarbic respiratory failure- resolving. Bilateral lower lobe subsegmental pulmonary embolism 09/01 CT PE: bilateral lower lobe emboli --wean oxygen by NC for goal spo2 > 92% --continue forced diuresis as below. 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 Lovenox 1.5 mg/kg subcutaneous every 24 Cardiology following: Dr. Kelly, Dr. Blanc. Cardiac surgery following: Dr. Meier. Plan for AVR/MVR on Saturday. Renal: Acute Kidney Injury Acute intravascular volume overload Metabolic alkalosis- likely 2/2 intravascular contraction. --likely 2/2 recent cardiac arrest, slowly resolving. Every hour urine outputs and strict I's and O's in the setting of recent arrest. -- Strict I/Os --lasix 40mg iv q8h for forced diuresis: goal at least 2L negative/24h. FEN/GI: Acute intravascular volume overload Acute life-threatening hypokalemia Acute protein calorie malnutritionmoderate Saline lock IV fluids ICU electrolyte protocol Aggressively replace potassium We'll recheck potassium this afternoon --Lasix as above. Daily BMP --1L fluid restriction today. Heme/ID: History of nonocclusive left femoral vein DVT 08/20 History of MRSA endocarditis Possible healthcare associated pneumonia Cultures have been negative. ID on board. --abx discontinued 09/02. monitor fever curve. Lovenox 1.5 mg/kg subcutaneous every 24 hours (75 mg) Daily CBC Endocrine: Hyperglycemia of critical illness -- SSI, every 6 hours, medium scale Prophylaxis: GI Prophylaxis Protonix 40 mg IV daily 24 hours DVT Prophylaxis -- SCDs Therapeutic Lovenox, on hold for OR. Lines: 09/01 left subclavian triple-lumen catheter. This will need to be changed for OR tomorrow. [facility] Dispo: Remain in the ICU. David Lynn MD Sep 06, 2016 13:57
[2016-09-06] MEDS: RESP: ALBUTEROL 2.5 MG/IPRATROPIUM 0.5 MG NEB (PRN) INH ×2 (16:20→21:25)
[2016-09-06 17:01] LABS: BLOOD, URINE NEG (NEG); COMMENT (UR) CULT NOT INDICATED; CULTURE IF INDICATED CULT NOT INDICATED; GLUCOSE,URINE NEG (NEG); KETONE, URINE NEG (NEG); MUCUS URINE FEW /lpf (OCC); NITRITE,URINE NEG (NEG); PH, URINE 8.5 (5.0-8.5); SQUAMOUS EPITHELIAL CELL URINE <1 /hpf (0-5); URINE COLOR YELLOW (YELLW/STRAW)
[2016-09-06] MEDS: CHLORHEXIDINE GLUCONATE 2 % 1 PACK (2 CLOTHS) TOP SCH (19:24)
[2016-09-06] MEDS ORDERED: INSULIN HUMAN REGULAR 1,000 UNITS/10 ML VIAL SQ PRN (23:00)
[2016-09-06] MEDS ORDERED: LACTATED RINGER'S 1000 ML IV SCH (23:00)
[2016-09-07] VITALS (15 sets, daily range): BP systolic 15–100; BP diastolic 51–75; PULSE 83–123; RESP 10–29; TEMP 97.6–98.6; O2SAT 93–99
[2016-09-07] MEDS: HYDROmorphone HCL PF 1 MG/ML VIAL IV PUSH PRN (01:07)
[2016-09-07] MEDS: FUROSEMIDE 40 MG/4 ML VIAL IV PUSH SCH (04:05)
[2016-09-07 04:32] LABS: HEMATOCRIT 41.8 % (35.0-46.0); MEAN CELL VOLUME 93.8 FL (80.0-100.0); MEAN CORPUSCULAR HEMOGLOBIN 31.1 PG (27.0-34.0); MEAN CORPUSCULAR HGB CONC 33.2 % (32.0-36.0); PLATELET COUNT 137 TH/MM3 (150-450); RED BLOOD COUNT 4.46 MIL/MM3 (4.00-5.30); RED CELL DISTRIBUTION WIDTH 19.5 % (11.6-17.2); REVIEW FLAG FINAL; WHITE BLOOD COUNT 7.3 TH/MM3 (4.0-11.0)
[2016-09-07] MEDS ORDERED: PROTAMINE SULFATE 250 MG/25 ML VIAL IV ONE ×2 (05:00→09:51)
[2016-09-07] MEDS ORDERED: PHENYLEPHRINE HCL 10 MG/ML VIAL IV ONE (05:00)
[2016-09-07] MEDS ORDERED: PROPOFOL 1000 MG/100 ML INJ 100 ML IV ONE (05:00)
[2016-09-07] MEDS ORDERED: HEPARIN SODIUM - SQ 10,000 UNITS/ML VIAL SQ ONE (05:00)
[2016-09-07] MEDS ORDERED: MAGNESIUM SULFATE 1000 MG/2 ML VIAL (PED) IV ONE (05:00)
[2016-09-07] MEDS ORDERED: LIDOCAINE HCL 1% 30 ML VIAL OTHER ONE (05:00)
[2016-09-07] MEDS ORDERED: VECURONIUM BROMIDE 10 MG VIAL IV ONE (05:00)
[2016-09-07] MEDS ORDERED: DEXMEDETOMIDINE INJ 50 ML IV ONE (05:00)
[2016-09-07 05:04] LABS: BICARBONATE 28.6 MEQ/L (21.0-32.0); POTASSIUM 3.1 MEQ/L (3.5-5.1)
[2016-09-07] MEDS: RESP: ALBUTEROL 2.5 MG/IPRATROPIUM 0.5 MG NEB (PRN) INH (05:04)
[2016-09-07] MEDS ORDERED: VANCOMYCIN HCL 1000 MG VIAL ONE ×2 (06:21→06:32)
[2016-09-07] MEDS ORDERED: HEPARIN SODIUM - IV 10,000 UNITS/10 ML VIAL ONE ×2 (06:21→07:17)
[2016-09-07] MEDS ORDERED: HEPARIN SODIUM - SQ 10,000 UNITS/ML VIAL ONE (06:22)
[2016-09-07] MEDS ORDERED: methylPREDNISolone SOD SUCC 125 MG/2 ML VIAL ONE (06:26)
[2016-09-07] MEDS ORDERED: CUSTODIOL HTK IRR SOLN 2,000 ML ONE (07:14)
[2016-09-07] MEDS ORDERED: POTASSIUM CHLORIDE 20 MEQ/10 ML VIAL ONE (07:15)
[2016-09-07] MEDS ORDERED: CUSTODIOL HTK IRR SOLN 1,000 ML ONE (07:15)
[2016-09-07] MEDS ORDERED: SODIUM BICARBONATE 8.4% INJ 50 ML ONE (07:16)
[2016-09-07] MEDS ORDERED: MANNITOL INJ 50 ML ONE (07:16)
[2016-09-07] MEDS ORDERED: ALBUMIN HUMAN 25% 12.5 GM/50 ML BAGP IV ONE (07:16)
[2016-09-07] MEDS ORDERED: CALCIUM CHLORIDE 10% SOLN 1 GRAM/10 ML SYR ONE (07:17)
[2016-09-07] MEDS: CHLORHEXIDINE 0.12% (ORAL KIT) 15 ML CUP MT SCH ×2 (08:00→20:00)
[2016-09-07] MEDS: MUPIROCIN 2% OINT 1 APPLIC/GM SYR EACH NARE SCH ×2 (09:00→21:37)
[2016-09-07] MEDS: PANTOPRAZOLE SODIUM 40 MG VIAL IV SCH (09:00)
[2016-09-07] MEDS: SODIUM CHLORIDE 0.9% FLUSH 5 ML FLUSH IVF SCH (09:00)
[2016-09-07] MEDS: SODIUM CHLORIDE 0.9% FLUSH 5 ML FLUSH IV FLUSH SCH ×2 (09:00→21:37)
[2016-09-07] MEDS ORDERED: SODIUM CHLOR 0.9% 1000 ML INJ 1,000 ML IV ONE (09:51)
[2016-09-07] MEDS ORDERED: LACTATED RINGER'S 1000 ML INJ 2,000 ML IV ONE (09:51)
[2016-09-07] MEDS ORDERED: SODIUM CHLOR 0.9% 250 ML INJ 250 ML IV ONE (09:51)
[2016-09-07] MEDS ORDERED: PROPOFOL 500 MG/50 ML BTL IV ONE (09:51)
[2016-09-07] MEDS ORDERED: SODIUM CHLORIDE 0.9% INJ 100 ML IV ONE (09:51)
[2016-09-07] MEDS ORDERED: NORMOSOL R INJ 1,000 ML IV ONE (09:51)
[2016-09-07] MEDS ORDERED: ceFAZolin INJ 1,000 MG VIAL IV ONE (11:41)
[2016-09-07] MEDS ORDERED: POTASSIUM CHLORIDE 40 MEQ/20 ML VIAL ONE (12:03)
[2016-09-07] MEDS ORDERED: LACTATED RINGER'S 1000 ML INJ 500 ML IV PRN (12:35)
[2016-09-07] MEDS ORDERED: ACETAMINOPHEN 325 MG TAB PO PRN (12:45)
[2016-09-07] MEDS ORDERED: MAGNESIUM SULFATE INJ 2 GM in SODIUM CHLORIDE 0.9% INJ 100 ML IV PRN ×4 (12:45)
[2016-09-07] MEDS ORDERED: ONDANSETRON HCL 4 MG/2 ML VIAL IV PUSH PRN (12:45)
[2016-09-07] MEDS ORDERED: hydrALAZINE HCL 20 MG/ML VIAL IV PRN (12:45)
[2016-09-07] MEDS ORDERED: Post-op Orders (for Pharmacy) MISC OTHER ONE (12:45)
[2016-09-07] MEDS ORDERED: CLEVIDIPINE INJ 50 ML IV SCH (12:45)
[2016-09-07] MEDS ORDERED: ACETAMINOPHEN 650 MG SUPP RECTAL PRN (12:45)
[2016-09-07] MEDS ORDERED: DEXTROSE 50% IN WATER 50 ML VIAL(D50) IV PUSH PRN (12:45)
[2016-09-07] MEDS ORDERED: POTASSIUM CHLOR 20 MEQ PREMIX 100 ML IV PRN ×2 (12:45)
[2016-09-07] MEDS ORDERED: CALCIUM CHLORIDE 10% 1 GRAM/10 ML VIAL IV PRN (12:45)
[2016-09-07] MEDS ORDERED: POTASSIUM CHLORIDE 20 MEQ CONTROLLED RELEASE TAB PO PRN ×2 (12:45)
[2016-09-07] MEDS ORDERED: SODIUM CHLORIDE 0.9% FLUSH 5 ML FLUSH IV FLUSH PRN (12:45)
--- NOTE | 2016-09-07 12:54 | PD.OP ---
cc: David Lynn MD; Ale Meier MD; Pete Blanc DO Operative Report Date of Surgery: Sep 07, 2016 Preoperative Diagnosis: (1) Mitral and aortic valve regurgitation (2) Combined systolic and diastolic congestive heart failure, NYHA class 4 Postoperative Diagnosis: same Procedure: AVR with a 19 Trifecta tissue valve MVR with a 27 Mi Tee Ease tissue valve ROSANGELA Anesthesia: Dr. Billy Surgeon: Ale Meier Manager Eligibility(s): Alicia Nguyen MD Operation and Findings: The risks, benefits, complications, treatment options, and expected outcomes were discussed with the patient. The possibilities of reaction to medication, pulmonary aspiration, perforation of viscus, bleeding, recurrent infection, the need for additional procedures, failure to diagnose a condition, and creating a complication requiring transfusion or operation were discussed with the patient. The patient concurred with the proposed plan, giving informed consent. The site of surgery properly noted/marked. The patient was taken to Operating Room, identified as Ewa Barrios and the procedure verified as Aortic valve replacement, Mitral Valve Repair or Replacement, ROSANGELA. A Time Out was held and the above information confirmed. Standard monitoring lines and Carter catheter were placed. General anesthesia was induced. The patient was prepped and draped in a sterile fashion. A median sternotomy was performed and electrocautery was used to obtain hemostasis. The pericardium was opened and the patient had dense adhesions between the pericardium and epicardium. The adhesions were lysed using sharp and blunt dissection.. The patient was heparinized for cardiopulmonary bypass. The heart was instrumented for cardiopulmonary bypass in the usual manner. Antegrade Custodiol cardioplegia were employed. The patient was placed on cardiopulmonary bypass. An aortic cross-clamp was applied and the heart was arrested using cold blood cardioplegia. The aorta was opened above the sinotubular ridge and additional cardioplegia was administered directly into each coronary artery due to the patient's aortic insufficiency. The intra-atrial groove was dissected out using electrocautery. The left atrium was entered under direct vision and the atriotomy was extended inferiorly and posteriorly. The mitral valve was exposed using an automatic retractor. The valve was analyzed and sized to a 27 Mi Magna Ease tissue valve which was seated using several interrupted 2-0 Tycron pledgeted horizontal mattress sutures. The left atrium was closed using a running 4-0 Prolene suture and a small catheter was left in the left atrium to assist in venting the heart. The aorta was opened above the sinotubular ridge and the aortic valve was exposed. On opening the aorta, the valve pathology was obvious. The valve was resected, sized for a 19 Trifecta tissue valve which was placed with 2-0 pledgeted Tycron valve sutures. The valve seated well. The aorta was closed with running 4-0 Prolene suture. The patient was systemically rewarmed and received a hotshot dose of warm blood cardioplegia. The heart was vigorously deaired with a clamp on. The patient was placed in Trendelenburg's position. The clamp was removed, deairing continued. Once the air was evacuated, the vent in the left atrium was removed and the suture line was secured. The heart was loaded and allowed to eject and the valves were analyzed by ROSANGELA. Both valves were well-seated with no PV leaks. The patient was weaned from cardiopulmonary bypass. Protamine was given. There was no adverse reaction. Decannulation was carried out without incident. Wound was checked for hemostasis which was obtained using electrocautery. A 36 English mediastinal was placed and secured to the skin with 0 silk suture. The sternum was closed with stainless steel wire. The fascia was closed with 1. PDS. The subcutaneous tissue was closed using a running 2-0 Vicryl suture. The skin was closed with 4-0 Monocryl. Sterile dressings were placed. At the end of the operation, all sponge, instruments, and needle counts were correct. The patient was transferred to the CVICU in stable condition. Findings: Dense pericardial adhesions. The posterior MV leaflet was largely destroyed by prior endocarditis. XC: 115 min CPB: 133 min Drains: mediastinal x 1 Specimens: aortic and mitral valve fragments Implants: 19 Trifecta aortic valve, 27 Mi Magna Ease tissue valve Complications: none Disposition: to CVICU in stable condition Ale Meier MD Sep 07, 2016 12:54
[2016-09-07] MEDS ORDERED: SODIUM CHLOR 0.9% 250 ML INJ 250 ML ONE (12:56)
[2016-09-07] MEDS ORDERED: DEXMEDETOMIDINE INJ 50 ML ONE (13:18)
[2016-09-07] MEDS ORDERED: fentaNYL CITRATE 1000 MCG/20 ML VIAL ONE (13:29)
[2016-09-07] MEDS ORDERED: MIDAZOLAM HCL 5 MG/5 ML VIAL ONE (13:29)
[2016-09-07] MEDS: ACETAMINOPHEN 1000 MG/100 ML VIAL IV SCH ×2 (13:48→21:37)
[2016-09-07] MEDS: CALCIUM CHLORIDE INJ 1 GM in SODIUM CHLORIDE 0.9% INJ 100 ML IV PRN ×2 (13:48→15:57)
[2016-09-07] MEDS ORDERED: HYDROmorphone HCL PF 1 MG/ML VIAL IV PUSH PRN (14:00)
[2016-09-07] MEDS ORDERED: oxyCODONE HCL ORAL CONC 20 MG/ML SYRINGE PO ONE (14:00)
[2016-09-07] MEDS ORDERED: INSULIN REGULAR (IV INFUSION) 100 UNITS in SODIUM CHLORIDE 0.9% INJ 99 ML IV SCH (14:00)
--- NOTE | 2016-09-07 14:08 | RADRPT ---
EXAM DATE/TIME: 09/07/2016 13:25 [facility] COMPARISON: CT PULMONARY ANGIOGRAM, August 29, 2016, 22:24. CT PULMONARY ANGIOGRAM, September 01, 2016, 10:23. CHEST SINGLE AP, September 01, 2016, 23:15. INDICATIONS : Post op CABG. MEDICAL HISTORY : Hepatitis C. Endocarditis. SURGICAL HISTORY : CABG. ENCOUNTER: Subsequent ACUITY: 1 day PAIN SCORE: Non-responsive. LOCATION: chest FINDINGS: The endotracheal tube, nasogastric tube, mediastinal drain, right jugular introducer and right jugula r central line are all in good position. The heart is enlarged. The patient is post valvular replacement. There are consolidative changes in the left lower lobe. These are stable compared to the prior exam. The left subclavian line has been removed. CONCLUSION: 1. Consolidation of the left lower lobe. 2. The patient is post median sternotomy and valvular replacement. Brendan Yanez MD on September 07, 2016 at 14:03 Board Certified Radiologist. This report was verified electronically.
[2016-09-07] MEDS: POTASSIUM CHLOR 20 MEQ PREMIX 100 ML IV PRN (15:58)
--- NOTE | 2016-09-07 16:53 | HHI.CCPN ---
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 status post previous antibiotic therapy who presented to the ER with worsening shortness of breath which has been progressing over the last few months. She was evaluated at her primary care physician's office today and was advised to come to the ER. Patient was noted to be tachycardic with heart rate in the 130s respiratory rate 30s with significant edema on arrival. She was placed on nasal cannula initially however subsequently due to worsening respiratory status was placed on BiPAP. She received Lasix 80 mg IV and weight 1600 cc of urine in the ER. Patient was accepted for admission by critical care medicine service. When I evaluated the patient she was on BiPAP with full facemask, sitting up in the ER stretcher. Subjective: 08/31: diuresed net 10L negative yesterday with tid lasix dosing. on nasal cannula. feels much better. tolerating a diet. cardiac surgery evaluated her and will plan for AVR next week. 09/01: doing well yesterday afternoon, and was planning on transferring to hospitalist service and floor today. however, at 22:20, sustained a cardiac arrest. reviewing telemetry, it appears she went into unstable V Tach which then converted into a PEA arrest. CPR was performed for approximately 8 minutes with 2 rounds of epinephrine after which ROSC was obtained. She was emergently intubated and central line/art line were placed. This morning, she is off vasopressors, not hypoxic. she is starting to arouse and is briskly purposeful, although not following commands. Her electrolytes were aggressively replaced yesterday for severe hypokalemia, although her recheck potassium was normal. This morning, her K is again severely low. I have seen the patient and have ordered a STAT CT pulmonary angiogram. She had a negative CT PE done on 08/29 along with a negative LE u/s for DVT. 09/02: was extubated yesterday, completely at neurologic baseline. doing well on NC o2. diuresing. last night was reintubated for resp distress. also had received versed prn prior to this. still volume overloaded this AM. following commands. hypoxia improved. net 2L negative. 09/03: remained intubated yesterday for concerns over intravascular volume overload. net -5L. doing well this morning, though agitated. RASS +1, but CAM - . She does not want to remain intubated, though I am concerned about her recurrent flash pulmonary edema. 09/04: extubated yesterday. doing well on NC o2. still somewhat agitated. -4L/24h yesterday. Cr only slightly increased. 09/05: doing well on NC o2. net -2.2L/24h and net -26L since admission. Cr is downtrending. I discussed her case with Dr. Blanc today and Viola with CT surgery. plan for AVR/MVR on Saturday if she continues to do well. patient has no complaints this AM. 09/06: on room air today. -1.5L over 24h. now very close to 30L diuresed since admission. Cr continues to downtrend. Plan for AVR/MVR tomorrow. I have discussed with Dr. Meier today, and will discuss plan with anesthesia as well. 09/07: saw and evaluated the patient together with Dr. Meier immediately post- op. now POD 0 s/p sternotomy, AVR/MVR tissue. no significant events intra- operatively. intra-op ROSANGELA initially with severe RV dysfunction, post-pump mild RV dysfunction. EF 30%. of note, right atrial thrombus noted, stable pre- and post-pump. She arrives warm and off pressors, intubated, sedated. on precedex. Objective Vital Signs Date Time Temp Pulse Resp B/P Pulse Ox O2 Delivery O2 Flow Rate FiO2 09/07/16 16:15 107 09/07/16 16:13 99 Nasal Cannula 5.00 09/07/16 16:08 98.6 09/07/16 15:59 25 09/07/16 15:09 90/62 09/07/16 13:38 50 Intake and Output 09/06/16 09/06/16 09/07/16 08:00 16:00 00:00 Intake Total 685 ml 700 ml 240 ml Output Total 1575 ml 1300 ml 2100 ml Balance -890 ml -600 ml -1860 ml Result Diagram: 09/07/16 0358 09/07/16 0358 Imaging Last Impressions Chest X-Ray 08/29/162034 Signed Impressions: Service Date/Time: Monday, August 29, 2016 20:47 - CONCLUSION: Airspace disease and effusions. Jonny Neal MD CT Angiography 08/29/162034 Signed Impressions: Service Date/Time: Monday, August 29, 2016 22:24 - CONCLUSION: 1. There is no evidence for pulmonary embolism within the main pulmonary arteries. Evaluation of the lower lobe subsegmental branches however is significantly limited and PE cannot be confidently excluded on the basis of this examination. 2. Bilateral pleural effusions and patchy bilateral pulmonary infiltrates are identified. Jonny Neal MD Objective Remarks GENERAL: Young female, lying in bed, intubated, sedated. HEENT: Pupils are equal, 2 mm, reactive, conjugate. Mucous membranes are moist. NECK: Trachea is midline. new right IJ cordis introducer sheath, site clean and dry, dressing intact. CHEST: Equal chest rise. clear to auscultation. Midline dressing clean and dry. a single chest tube exits sub-xiphoid with 40mL of sanguinous output. CARDIOVASCULAR: normal rate, regular rhythm. small continuous rub heard. ABDOMEN: Soft, nontender, nondistended. No guarding. MUSCULOSKELETAL: 1+ pitting edema. Distal pulses are 2+. right radial art line in place. NEUROLOGICAL: RASS -4. sedated from anesthesia. A/P Assessment and Plan Assessment: This is a 26-year-old female with history of endocarditis status post appropriate therapy and subsequently with severe aortic regurgitation, moderate mitral regurgitation, severe biventricular dysfunction. Initially admitted for severe left ventricular congestive heart failure exacerbation. Now net -32L over 7 days. She is now POD 0 s/p sternotomy, AVR/MVR tissue. She remains critically ill and recently post-op. Plan by systems: Neurologic: Acute on Chronic pain IV drug abuse History of CVA with residual left-sided weakness --continue precedex for sedation --tylenol, oxycodone, dilaudid as needed for pain. --avoid benzos. CT head 09/01 negative acute Respiratory: Acute hypoxic and hypercarbic respiratory failure- resolving. Bilateral lower lobe subsegmental pulmonary embolism 09/01 CT PE: bilateral lower lobe emboli --wean fio2 for goal spo2 > 90% --if she remains hemodynamically stable initially, will begin weaning process post-surgery and attempt SBT. 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 Lovenox 1.5 mg/kg subcutaneous every 24, on hold for OR. Cardiology following: Dr. Kelly, Dr. Blanc. --Cardene for goal SBP < 120 --will likely have some element of myocardial dysfunction post MVR repair. may need inotropy if end-points of resuscitation are not met --will trend lactates and uop carefully. Renal: Acute Kidney Injury- resolving. Acute intravascular volume overload Metabolic alkalosis- likely 2/2 intravascular contraction. --likely 2/2 recent cardiac arrest, slowly resolving. Every hour urine outputs and strict I's and O's recently post-op. -- Strict I/Os --hold forced diuresis today in the setting of post-cardiac surgery. FEN/GI: Acute intravascular volume overload Acute life-threatening hypokalemia Acute protein calorie malnutritionmoderate Saline lock IV fluids ICU electrolyte protocol Aggressively replace potassium Daily BMP Heme/ID: History of nonocclusive left femoral vein DVT 08/20 History of MRSA endocarditis Possible healthcare associated pneumonia Perioperative prophylaxis Cultures have been negative. ID on board. --abx discontinued 09/02. monitor fever curve. --uriel-op abx per surgeon. Lovenox 1.5 mg/kg subcutaneous every 24 hours (75 mg), currently on hold for surgery, will need to resume anticoagulation early post-op. Daily CBC Endocrine: Hyperglycemia of critical illness -- insulin drip post cadiac surgery. Prophylaxis: GI Prophylaxis Protonix 40 mg IV daily 24 hours DVT Prophylaxis -- SCDs Therapeutic Lovenox, on hold for OR. will need early anticoagulation for right atrial clot, PEs. Lines: /6 right radial art line --09/07 right IJ cordis introducer sheath. Raul Dispo: Remain in the ICU. Certainly two valves in the setting of biventricular dysfunction, recent post-op, resolving NITISH, recent decompensated CHF. She remains critically ill. This patient remains critically ill with one or more organ systems which are or may become a threat to life. I have spent in excess of 62 minutes discontinuously in the care and management of this patient. This time is exclusive of procedures, and includes, but is not limited to, evaluation of the patient, review of the medical record, discussions with family, consultants, nursing staff, or respiratory therapy, and documentation in the medical record. David Lynn MD Sep 07, 2016 16:53
[2016-09-07] MEDS ORDERED: SODIUM CHLORIDE 0.9% FLUSH 5 ML FLUSH IV FLUSH SCH (21:00)
[2016-09-08] VITALS (20 sets, daily range): BP systolic 97–140; BP diastolic 62–80; PULSE 76–102; RESP 17–20; TEMP 97.7–98.4; O2SAT 93–100
[2016-09-08] MEDS: ACETAMINOPHEN 1000 MG/100 ML VIAL IV SCH ×2 (02:26→07:37)
[2016-09-08] MEDS: CHLORHEXIDINE GLUCONATE 2 % 1 PACK (2 CLOTHS) TOP SCH (04:00)
--- NOTE | 2016-09-08 04:47 | RADRPT ---
EXAM DATE/TIME: 09/08/2016 03:35 [facility] COMPARISON: CHEST SINGLE AP, September 07, 2016, 13:25. INDICATIONS : Shortness of breath, possible pulmonary disease. MEDICAL HISTORY : Hepatitis C. Endocarditis SURGICAL HISTORY : Valve replacement ENCOUNTER: Subsequent ACUITY: 2 days PAIN SCORE: Non-responsive. LOCATION: Bilateral chest FINDINGS: Interval extubation. Right internal jugular line and sheath stable in appearance. Mediastinal drain in place. Consolidation left mid and lower lung with loss of delineation of the left hemidiaphragm similar to prior. There are some new patchy areas of airspace opacity in the right lower lobe. No e vidence of mediastinal shift. Prior median sternotomy and valve replacement. CONCLUSION: Persistent consolidation left mid and lower lung and interval development of a new area of non-consol idative infiltrate in the right lower lung. Mo Benson MD on September 08, 2016 at 4:45 Board Certified Radiologist. This report was verified electronically.
[2016-09-08 05:13] LABS: HEMATOCRIT 26.3 % (35.0-46.0); MEAN CELL VOLUME 95.3 FL (80.0-100.0); MEAN CORPUSCULAR HEMOGLOBIN 31.2 PG (27.0-34.0); MEAN CORPUSCULAR HGB CONC 32.8 % (32.0-36.0); PLATELET COUNT 68 TH/MM3 (150-450); RED BLOOD COUNT 2.76 MIL/MM3 (4.00-5.30); RED CELL DISTRIBUTION WIDTH 19.4 % (11.6-17.2); WHITE BLOOD COUNT 10.1 TH/MM3 (4.0-11.0)
[2016-09-08 05:35] LABS: REVIEW FLAG FINAL
[2016-09-08 06:09] LABS: BICARBONATE 22.2 MEQ/L (21.0-32.0); MAGNESIUM 2.2 MG/DL (1.5-2.5); POTASSIUM 3.9 MEQ/L (3.5-5.1)
[2016-09-08] MEDS: PANTOPRAZOLE SOD 40 MG DELAYED RELEASE TAB PO SCH (06:18)
[2016-09-08] MEDS: POTASSIUM CHLOR 20 MEQ PREMIX 100 ML IV PRN (06:48)
[2016-09-08] MEDS ORDERED: FUROSEMIDE 40 MG/4 ML VIAL IV PUSH ONE (07:30)
--- NOTE | 2016-09-08 07:41 | PD.CAR.PN ---
CVT Progress Note CVT: POD #: 1 Subjective/Hospital Course: Patient well-known to our service. 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 She has had numerous hospitalizations secondary to complications from the SBE. She is a high-risk surgical candidate secondary to her clinical comorbidities and social behaviors. She has no complaints this morning. 09/01/16 Events overnight noted with cardiac arrest, CPR, etc Patient intubated on vent 09/03 pt was extubated then reintubated after 8 hours now on CPAP, awake and following commands CTA chest noted/ Bilateral PE now on lovenox neg : urine drug tox screen on scheduled lasix, potassium being replaced 09/04 pt extubated yesterday, now on 2 liter nasal cannula congested cough, needs aggressive pulm toileting cultures neg to date recommend PT/ OOB will discuss timing of surgery with Dr Meier 09/05 All labs / xrays / micro reviewed with Dr Meier pt is on nasal cannula, weak, requires assistance to get OOB side steps with walker Dr Meier spoke with Mother Mony Barrios via phone/ with witness and to pt herself procedures alternatives and risks discussed pt scheduled for AVR, MVR vs replacement on saturday she will require aggressive rehab post surgery 09/06 now on room air VSS, plan is for surgery in am 09/08/16 POD 1: MVR/AVR doing well. She has no complaints and feels better than she did prior to surgery. Objective: Vital Signs Date Time Temp Pulse Resp B/P Pulse Ox O2 Delivery O2 Flow Rate FiO2 09/08/16 04:00 99 Nasal Cannula 4.00 09/08/16 04:00 76 09/08/16 04:00 98.2 76 20 103/62 99 09/08/16 00:00 100 Nasal Cannula 2.00 09/08/16 00:00 82 09/08/16 00:00 98.4 83 20 117/76 100 09/07/16 21:40 99 Nasal Cannula 4.00 09/07/16 20:00 97.6 98 16 94/66 98 09/07/16 20:00 98 09/07/16 20:00 98 Nasal Cannula 2.00 09/07/16 17:53 16 09/07/16 16:15 107 09/07/16 16:13 99 Nasal Cannula 5.00 09/07/16 16:08 98.6 09/07/16 15:59 25 09/07/16 15:45 99 Nasal Cannula 4 09/07/16 15:09 98.6 101 29 90/62 99 09/07/16 14:06 123 09/07/16 13:38 99 Mechanical Ventilator 50 09/07/16 13:36 50 09/07/16 13:10 98.6 09/07/16 13:09 108 09/07/16 12:55 98.5 120 10 99 09/07/16 12:45 99 50 Labs: Laboratory Tests Test 09/08/16 04:20 White Blood Count 10.1 TH/MM3 (4.0-11.0) Red Blood Count 2.76 MIL/MM3 (4.00-5.30) Hemoglobin 8.6 GM/DL (11.6-15.3) Hematocrit 26.3 % (35.0-46.0) Mean Corpuscular Volume 95.3 FL (80.0-100.0) Mean Corpuscular Hemoglobin 31.2 PG (27.0-34.0) Mean Corpuscular Hemoglobin 32.8 % Concent (32.0-36.0) Red Cell Distribution Width 19.4 % (11.6-17.2) Platelet Count 68 TH/MM3 (150-450) Mean Platelet Volume 9.8 FL (7.0-11.0) Sodium Level 143 MEQ/L (136-145) Potassium Level 3.9 MEQ/L (3.5-5.1) Chloride Level 112 MEQ/L (98-107) Carbon Dioxide Level 22.2 MEQ/L (21.0-32.0) Anion Gap 9 MEQ/L (5-15) Blood Urea Nitrogen 21 MG/DL (7-18) Creatinine 0.50 MG/DL (0.50-1.00) Estimat Glomerular Filtration 148 ML/MIN Rate (>89) Random Glucose 112 MG/DL (74-106) Calcium Level 7.8 MG/DL (8.5-10.1) Magnesium Level 2.2 MG/DL (1.5-2.5) Result Diagram: 09/08/16 04209/08/16 0420 Cardiovascular: RRR Telemetry: NSR Pulmonary: Few crackles bilat GI/: decreased BS, NT Incision: dry and intact CT: 100ml/12 hrs Plan: Up to chair, ambulate with assist 4-6 X daily Remove Carter Sipp K and Mg Advance diet. No beta neli or ACEI yet. (1) Pulmonary edema Plan: on scheduled lasix (2) History of bacterial endocarditis Plan: BC neg (3) Mitral and aortic valve regurgitation Plan: scheduled for AVR, mitral valve replacement vs mitral repair on saturday (4) Dvt femoral (deep venous thrombosis) (5) Pulmonary embolism, bilateral Plan: on lovenox/ hold prior to surgery (6) CHF due to valvular disease (7) Hx of cerebral embolic infarction Plan: left sided weakness, will need aggressive rehab PT/OT post surgery Ale Meier MD Sep 08, 2016 07:41
[2016-09-08] MEDS ORDERED: SOD PHOSPHATE/SOD BIPHOSPHATE (ADULT) ENEMA 133ML RECTAL PRN (07:45)
[2016-09-08] MEDS ORDERED: MAGNESIUM HYDROXIDE SUSP 30 ML CUP PO PRN (07:45)
[2016-09-08] MEDS ORDERED: BISACODYL EC 5 MG TABEC PO PRN (07:45)
[2016-09-08] MEDS ORDERED: BISACODYL 10 MG SUPP RECTAL PRN (07:45)
[2016-09-08] MEDS: ASPIRIN 81 MG CHEW TAB PO SCH (07:46)
[2016-09-08] MEDS: MUPIROCIN 2% OINT 1 APPLIC/GM SYR EACH NARE SCH ×2 (07:46→20:18)
[2016-09-08] MEDS: SODIUM CHLORIDE 0.9% FLUSH 5 ML FLUSH IV FLUSH SCH ×2 (07:46→20:09)
[2016-09-08] MEDS: CHLORHEXIDINE 0.12% (ORAL KIT) 15 ML CUP MT SCH ×2 (08:00→20:00)
--- NOTE | 2016-09-08 08:42 | HHI.CCPN ---
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 status post previous antibiotic therapy who presented to the ER with worsening shortness of breath which has been progressing over the last few months. She was evaluated at her primary care physician's office today and was advised to come to the ER. Patient was noted to be tachycardic with heart rate in the 130s respiratory rate 30s with significant edema on arrival. She was placed on nasal cannula initially however subsequently due to worsening respiratory status was placed on BiPAP. She received Lasix 80 mg IV and weight 1600 cc of urine in the ER. Patient was accepted for admission by critical care medicine service. When I evaluated the patient she was on BiPAP with full facemask, sitting up in the ER stretcher. Subjective: 08/31: diuresed net 10L negative yesterday with tid lasix dosing. on nasal cannula. feels much better. tolerating a diet. cardiac surgery evaluated her and will plan for AVR next week. 09/01: doing well yesterday afternoon, and was planning on transferring to hospitalist service and floor today. however, at 22:20, sustained a cardiac arrest. reviewing telemetry, it appears she went into unstable V Tach which then converted into a PEA arrest. CPR was performed for approximately 8 minutes with 2 rounds of epinephrine after which ROSC was obtained. She was emergently intubated and central line/art line were placed. This morning, she is off vasopressors, not hypoxic. she is starting to arouse and is briskly purposeful, although not following commands. Her electrolytes were aggressively replaced yesterday for severe hypokalemia, although her recheck potassium was normal. This morning, her K is again severely low. I have seen the patient and have ordered a STAT CT pulmonary angiogram. She had a negative CT PE done on 08/29 along with a negative LE u/s for DVT. 09/02: was extubated yesterday, completely at neurologic baseline. doing well on NC o2. diuresing. last night was reintubated for resp distress. also had received versed prn prior to this. still volume overloaded this AM. following commands. hypoxia improved. net 2L negative. 09/03: remained intubated yesterday for concerns over intravascular volume overload. net -5L. doing well this morning, though agitated. RASS +1, but CAM - . She does not want to remain intubated, though I am concerned about her recurrent flash pulmonary edema. 09/04: extubated yesterday. doing well on NC o2. still somewhat agitated. -4L/24h yesterday. Cr only slightly increased. 09/05: doing well on NC o2. net -2.2L/24h and net -26L since admission. Cr is downtrending. I discussed her case with Dr. Blanc today and Viola with CT surgery. plan for AVR/MVR on Saturday if she continues to do well. patient has no complaints this AM. 09/06: on room air today. -1.5L over 24h. now very close to 30L diuresed since admission. Cr continues to downtrend. Plan for AVR/MVR tomorrow. I have discussed with Dr. Meier today, and will discuss plan with anesthesia as well. 09/07: saw and evaluated the patient together with Dr. Meier immediately post- op. now POD 0 s/p sternotomy, AVR/MVR tissue. no significant events intra- operatively. intra-op ROSANGELA initially with severe RV dysfunction, post-pump mild RV dysfunction. EF 30%. of note, right atrial thrombus noted, stable pre- and post-pump. She arrives warm and off pressors, intubated, sedated. on precedex. 09/08: extubated yesterday. doing well today. CXR with increased pulmonary vascular congestion. weight up from yesterday. on 4L NC. tolerating ice chips. no complaints. uop adequate overnight, lactate cleared. Objective Vital Signs Date Time Temp Pulse Resp B/P Pulse Ox O2 Delivery O2 Flow Rate FiO2 09/08/16 04:00 99 Nasal Cannula 4.00 09/08/16 04:00 76 09/08/16 04:00 98.2 20 103/62 09/07/16 13:38 50 Intake and Output 09/07/16 09/07/16 09/08/16 08:00 16:00 00:00 Intake Total 2885 ml Output Total 475 ml 915 ml Balance -475 ml 1970 ml Result Diagram: 09/08/1641909/08/16419 Imaging Last Impressions Chest X-Ray 08/29/162034 Signed Impressions: Service Date/Time: Monday, August 29, 2016 20:47 - CONCLUSION: Airspace disease and effusions. Jonny Neal MD CT Angiography 08/29/162034 Signed Impressions: Service Date/Time: Monday, August 29, 2016 22:24 - CONCLUSION: 1. There is no evidence for pulmonary embolism within the main pulmonary arteries. Evaluation of the lower lobe subsegmental branches however is significantly limited and PE cannot be confidently excluded on the basis of this examination. 2. Bilateral pleural effusions and patchy bilateral pulmonary infiltrates are identified. Jonny Neal MD Objective Remarks GENERAL: Young female, lying in bed, intubated, sedated. HEENT: Pupils are equal, 2 mm, reactive, conjugate. Mucous membranes are moist. NECK: Trachea is midline. right IJ cordis introducer sheath, site clean and dry , dressing intact. CHEST: Equal chest rise. clear to auscultation. Midline dressing clean and dry. a single chest tube exits sub-xiphoid. 450cc chest tube output, now serosanguinous. CARDIOVASCULAR: normal rate, regular rhythm. small continuous rub heard. ABDOMEN: Soft, nontender, nondistended. No guarding. MUSCULOSKELETAL: 1+ pitting edema. Distal pulses are 2+. right radial art line in place. NEUROLOGICAL: RASS 0. CAM -. follows commands on right. at neurologic baseline. A/P Assessment and Plan Assessment: This is a 26-year-old female with history of endocarditis status post appropriate therapy and subsequently with severe aortic regurgitation, moderate mitral regurgitation, severe biventricular dysfunction. Initially admitted for severe left ventricular congestive heart failure exacerbation. Now net -32L over 7 days. She is now POD 1 s/p sternotomy, AVR/MVR tissue. extubated and on pathway. I am concerned given her propensity for flash pulmonary edema and some element of biventricular dysfunction that she may re- mobilize her volume early. we will pursue early gentle forced diuresis. otherwise, OOB to chair, mobilize. 1L fluid restriction. advance diet. doing well. Plan by systems: Neurologic: Acute on Chronic pain IV drug abuse History of CVA with residual left-sided weakness --tylenol, oxycodone, dilaudid as needed for pain. --avoid benzos. CT head 09/01 negative acute Respiratory: Acute hypoxic and hypercarbic respiratory failure- resolving. Bilateral lower lobe subsegmental pulmonary embolism 09/01 CT PE: bilateral lower lobe emboli --wean o2 by NC for goal spo2 > 92% --I.S. to bedside --OOB to chair. PT consult. 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 will plan to restart Lovenox 1.5 mg/kg subcutaneous every 24 tomorrow. Cardiology following: Dr. Kelly, Dr. Blanc. Renal: Acute Kidney Injury- resolved Acute intravascular volume overload Metabolic alkalosis- likely 2/2 intravascular contraction. --likely 2/2 recent cardiac arrest, now back to baseline. Every hour urine outputs and strict I's and O's recently post-op. -- Strict I/Os --lasix 40mg iv x 1 this AM. goal negative. FEN/GI: Acute intravascular volume overload Acute life-threatening hypokalemia Acute protein calorie malnutritionmoderate Saline lock IV fluids ICU electrolyte protocol Aggressively replace potassium Daily BMP --advance diet to clears and then to heart healthy as tolerated. supplemental shakes. Heme/ID: History of nonocclusive left femoral vein DVT 08/20 History of MRSA endocarditis Possible healthcare associated pneumonia Perioperative prophylaxis Cultures have been negative. ID on board. --abx discontinued 09/02. monitor fever curve. --uriel-op abx per surgeon. Lovenox 1.5 mg/kg subcutaneous every 24 hours (70 mg), to restart tomorrow. will need at least 6 months of coumadin. Daily CBC Endocrine: Hyperglycemia of critical illness -- insulin drip post cadiac surgery. will transition to SSI today. Prophylaxis: GI Prophylaxis Protonix 40 mg IV daily 24 hours DVT Prophylaxis -- SCDs holding pharmacologic DVT prophylaxis today. plan to restart Lovenox tomorrow as above. Lines: 1/6 right radial art line --1/6 right IJ cordis introducer sheath. Carter Dispo: Remain in the ICU. If she continues to improve, could consider transfer to floor tomorrow. David Lynn MD Sep 08, 2016 08:42
[2016-09-08] MEDS: MULTIVITAMINS/MINERALS THERAPEUTIC TAB PO SCH (09:09)
--- NOTE | 2016-09-08 15:06 | HHI.IDPN ---
Note Infectious Disease Note ID coverage: Delayed entry. Patient seen at 12:10p Notes reviewed. Patient known to me. D/W RN Post AVR, MVR 09/07/2016. Tissue valves. Posterior leaflet of the MV was destroyed by infection. Sitting in chair and feeding self. Ambulated in hallways although she was a little unsteady. Say she feels a little short of breath. Temps ok No distress. Has diuresed a total of about 27.9L since admission No abdominal pain Had cardiac arrest 08/31 PM, successfully resuscitated Extubated 09/01, but reintubated 09/01 PM for respiratory distress. Extubated 09/03 Antibiotics Cefazolin. Lines PIV R central line cordis. Past Medical History Prolonged hospitalization from October 18 to December 24, 2015 for infective endocarditis and subsequent complications Prolonged hospitalization from Jun 22 - Jul 23 for CHF and cervical discitis History of severe sepsis, with respiratory failure Septic emboli to the brain lungs spleen Right frontal subarachnoid hemorrhage Bilateral sacroiliitis CVA with residual left hemiplegia Residual vegetation on echo done on 08/07/16, also moderate to severe AR, severe MR (patient had OP follow up to see Dr. Perez) Past Surgical History History of discitis status post ACDF by Dr. 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 2015 Objective Objective Vital Signs Date Time Temp Pulse Resp B/P Pulse Ox O2 Delivery O2 Flow Rate FiO2 09/08/16 14:44 98.2 92 17 105/69 100 09/08/16 14:40 100 09/08/16 11:41 90 09/08/16 11:40 98.3 80 18 140/80 100 09/08/16 11:00 97 Nasal Cannula 4.00 09/08/16 09:17 99 Nasal Cannula 4.00 09/08/16 08:22 20 09/08/16 08:22 20 09/08/16 08:00 98.3 80 18 140/80 100 09/08/16 08:00 98 Nasal Cannula 4.00 1/7/17 07:00 80 09/08/16 04:00 99 Nasal Cannula 4.00 09/08/16 04:00 76 09/08/16 04:00 98.2 76 20 103/62 99 09/08/16 00:00 100 Nasal Cannula 2.00 09/08/16 00:00 82 09/08/16 00:00 98.4 83 20 117/76 100 09/07/16 21:40 99 Nasal Cannula 4.00 09/07/16 20:00 97.6 98 16 94/66 98 09/07/16 20:00 98 09/07/16 20:00 98 Nasal Cannula 2.00 09/07/16 17:53 16 09/07/16 16:15 107 09/07/16 16:13 99 Nasal Cannula 5.00 09/07/16 16:08 98.6 09/07/16 15:59 25 09/07/16 15:45 99 Nasal Cannula 4 09/07/16 15:09 98.6 101 29 90/62 99 09/07/16 09/07/16 09/08/16 15:00 23:00 07:00 Intake Total 2885 ml 2826 ml Output Total 915 ml 700 ml Balance 1970 ml 2126 ml Intake Oral 1520 ml IV Total 2885 ml 1306 ml Output Urine Total 565 ml 600 ml Chest Tube Drainage Total 350 ml 100 ml # Bowel Movements 0 0 Laboratory Tests Test 09/07/16 09/08/16 03:58 04:20 White Blood Count 7.3 TH/MM3 10.1 TH/MM3 Red Blood Count 4.46 MIL/MM3 2.76 MIL/MM3 Hemoglobin 13.9 GM/DL 8.6 GM/DL Hematocrit 41.8 % 26.3 % Mean Corpuscular Volume 93.8 FL 95.3 FL Mean Corpuscular Hemoglobin 31.1 PG 31.2 PG Mean Corpuscular Hemoglobin 33.2 % 32.8 % Concent Red Cell Distribution Width 19.5 % 19.4 % Platelet Count 137 TH/MM3 68 TH/MM3 Mean Platelet Volume 7.9 FL 9.8 FL Laboratory Tests Test 09/06/16 09/07/16 09/08/16 19:45 03:58 04:20 Potassium Level 5.5 MEQ/L 3.1 MEQ/L 3.9 MEQ/L Sodium Level 139 MEQ/L 143 MEQ/L Chloride Level 103 MEQ/L 112 MEQ/L Carbon Dioxide Level 28.6 MEQ/L 22.2 MEQ/L Anion Gap 7 MEQ/L 9 MEQ/L Blood Urea Nitrogen 19 MG/DL 21 MG/DL Creatinine 0.75 MG/DL 0.50 MG/DL Estimat Glomerular Filtration 93 ML/MIN 148 ML/MIN Rate Random Glucose 96 MG/DL 112 MG/DL Calcium Level 8.8 MG/DL 7.8 MG/DL Magnesium Level 2.2 MG/DL Microbiology Date/Time Procedure Status Source Growth 09/07/16 10:10 Gram Stain - Final Resulted Wound Other 09/07/16 10:10 Wound Culture - Preliminary Resulted Wound Other NO GROWTH IN 24 HOURS. 09/07/16 10:10 Acid Fast Stain Received Wound Other Pending 09/07/16 10:10 Mycobacterial Culture Received Wound Other Pending 09/07/16 10:10 Fungal Smear - Final Resulted Wound Other NO FUNGAL ELEMENTS SEEN. 09/07/16 10:10 Fungal Culture Resulted Wound Other Pending 09/07/16 10:32 Gram Stain - Final Resulted Wound Other 09/07/16 10:32 Wound Culture - Preliminary Resulted Wound Other NO GROWTH IN 24 HOURS. 09/07/16 10:32 Acid Fast Stain Received Wound Other Pending 09/07/16 10:32 Mycobacterial Culture Received Wound Other Pending 09/07/16 10:32 Fungal Smear - Final Resulted Wound Other NO FUNGAL ELEMENTS SEEN. 09/07/16 10:32 Fungal Culture Resulted Wound Other Pending Imaging Chest X-Ray 09/08/16 0500 Signed Impressions: Service Date/Time: Thursday, September 08, 2016 03:35 - CONCLUSION: Persistent consolidation left mid and lower lung and interval development of a new area of non-consolidative infiltrate in the right lower lung. Mo Benson MD Chest X-Ray 09/07/16 0000 Signed Impressions: Service Date/Time: Wednesday, September 07, 2016 13:25 - CONCLUSION: 1. Consolidation of the left lower lobe. 2. The patient is post median sternotomy and valvular replacement. Brendan Yanez MD Head CT 09/01/16 0000 Signed Impressions: Service Date/Time: Thursday, September 01, 2016 03:23 - CONCLUSION: Stable CT brain with unchanged areas of low attenuation more notably within the right middle lobe. These are likely related to areas of old infarction. No acute intracranial abnormality. Abram Reyes MD CT Angiography 09/01/16 0000 Signed Impressions: Service Date/Time: Thursday, September 01, 2016 10:23 - CONCLUSION: 1. Bilateral consolidation and effusions. 2. Bilateral lower lobe pulmonary emboli. Jonny Neal MD Chest X-Ray 08/31/16 0000 Signed Impressions: Service Date/Time: Wednesday, August 31, 2016 23:01 - CONCLUSION: Cardiomegaly with bibasilar densities and small pleural effusions. Support lines and tubes as described above. Abram Reyes MD Lower Extremity Ultrasound 08/29/16 0000 Signed Impressions: Service Date/Time: Monday, August 29, 2016 21:13 - CONCLUSION: 1. No evidence for DVT. Jonny Neal MD Physical Exam GENERAL: Awake, calm and cooperative, not in distress, on nasal O2 SKIN: Cool and dry. No generalized rash. No embolic lesions noted. HEENT: [place] conjunctivae, no petechia or hemorrhage. No scleral icterus. Moist oral mucosa. NECK: Trachea midline. Supple, nontender, no meningeal signs. Heart sounds distant. RESPIRATORY: Coarse rhonchi L side, decreased BS R side GASTROINTESTINAL: Abdomen soft, nondistended, bowel sounds present and normoactive. No guarding. No rebound. MUSCULOSKELETAL: Extremities without clubbing, or cyanosis. No edema in BLE. LUE edematous. NEUROLOGICAL: Non focal. PSYCH: calm and cooperative Assessment & Plan IMPRESSION Bilateral pulmonary infiltrates, likely pumonary edema due to her severe valvular heart disease from previous IE - 2 D echo showed diffuse hypokinesis, mod AI, mod to severe MR Hx MV and AV IE, previous ly had MRSA Oct 2015 S/P Rx, and Strep viridans Jun 2016 - completed treatment Post AVR, MVR 09/07/2016. Tissue valves. Posterior leaflet of the MV was destroyed by infection. - No evidence of active endocarditis pre op. Clinical picture not favouring PNA Hx MDR PSAE, MRSA infection Previous episode of C diff colitis Respiratory failure, has been intubated 2x S/P cardiac arrest 08/31 Thrombus at LUE basilic and brachial vein. RECOMMENDATION Monitor on post op abx. Monitor respiratory status Current work-up not showing any blood stream infection or recurrent endocarditis. follow valve tissue culture. Monitor Saeid Vaz MD Sep 08, 2016 15:06
[2016-09-09] VITALS (34 sets, daily range): BP systolic 94–125; BP diastolic 53–74; PULSE 98–119; RESP 14–22; TEMP 97.8–98.3; O2SAT 91–99
[2016-09-09] MEDS: CHLORHEXIDINE GLUCONATE 2 % 1 PACK (2 CLOTHS) TOP SCH ×2 (04:00→19:48)
[2016-09-09] MEDS: PANTOPRAZOLE SOD 40 MG DELAYED RELEASE TAB PO SCH (06:00)
[2016-09-09 06:46] LABS: AUTOMATED NEUTROPHIL # 7.4 TH/MM3 (1.8-7.7); BASOPHIL % 0.2 % (0.0-2.0); EOSINOPHIL # 0.1 TH/MM3 (0-0.4); EOSINOPHIL % 0.4 % (0.0-4.0); LYMPH % 26.3 % (9.0-44.0); LYMPHOCYTE # 3.3 TH/MM3 (1.0-4.8); MEAN CELL VOLUME 94.2 FL (80.0-100.0); MEAN CORPUSCULAR HEMOGLOBIN 30.8 PG (27.0-34.0); MEAN CORPUSCULAR HGB CONC 32.8 % (32.0-36.0); MONO % 13.6 % (0.0-8.0); NEUT % 59.5 % (16.0-70.0); PLATELET COUNT 81 TH/MM3 (150-450); RED BLOOD COUNT 2.23 MIL/MM3 (4.00-5.30); RED CELL DISTRIBUTION WIDTH 19.7 % (11.6-17.2); WHITE BLOOD COUNT 12.4 TH/MM3 (4.0-11.0)
[2016-09-09 07:11] LABS: BICARBONATE 24.6 MEQ/L (21.0-32.0); MAGNESIUM 1.8 MG/DL (1.5-2.5); POTASSIUM 3.5 MEQ/L (3.5-5.1)
[2016-09-09] MEDS: CHLORHEXIDINE 0.12% (ORAL KIT) 15 ML CUP MT SCH ×2 (08:00→19:48)
[2016-09-09 08:03] LABS: HEMO FLAGS AUTO DIFF
[2016-09-09 08:32] LABS: BANDS 1 % (0-6); CORRECTED NUCLEATED RBC 1 /100 WBC (0-0); NEUTROPHIL # MANUAL DIFF 7.2 TH/MM3 (1.8-7.7); POLYS (SEG NEUTROPHILS) 57 % (16-70); WBC DIFF SAMPLE 100
[2016-09-09 08:33] LABS: PLATELET ESTIMATE SMEAR LOW (NORMAL); PLATELET MORPHOLOGY NORMAL (NORMAL); SCAN/DIFF FINAL DIFF MANUAL
[2016-09-09] MEDS: ENOXAPARIN SODIUM 80 MG/0.8 ML SYRINGE SQ SCH (09:00)
[2016-09-09] MEDS: MUPIROCIN 2% OINT 1 APPLIC/GM SYR EACH NARE SCH ×2 (09:00→19:48)
[2016-09-09] MEDS: ASPIRIN 81 MG CHEW TAB PO SCH (09:00)
[2016-09-09] MEDS: DOCUSATE SODIUM 100 MG CAP PO SCH ×2 (09:06→19:47)
[2016-09-09] MEDS: POLYETHYLENE GLYCOL 17 GM PKG PO SCH (09:06)
[2016-09-09] MEDS: SODIUM CHLORIDE 0.9% FLUSH 5 ML FLUSH IV FLUSH SCH ×2 (09:07→19:48)
[2016-09-09] MEDS: MULTIVITAMINS/MINERALS THERAPEUTIC TAB PO SCH (09:07)
--- NOTE | 2016-09-09 10:56 | PD.CAR.PN ---
CVT Progress Note CVT: POD #: 2 Subjective/Hospital Course: Patient well-known to our service. 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 She has had numerous hospitalizations secondary to complications from the SBE. She is a high-risk surgical candidate secondary to her clinical comorbidities and social behaviors. She has no complaints this morning. 09/01/16 Events overnight noted with cardiac arrest, CPR, etc Patient intubated on vent 09/03 pt was extubated then reintubated after 8 hours now on CPAP, awake and following commands CTA chest noted/ Bilateral PE now on lovenox neg : urine drug tox screen on scheduled lasix, potassium being replaced 09/04 pt extubated yesterday, now on 2 liter nasal cannula congested cough, needs aggressive pulm toileting cultures neg to date recommend PT/ OOB will discuss timing of surgery with Dr Meier 09/05 All labs / xrays / micro reviewed with Dr Meier pt is on nasal cannula, weak, requires assistance to get OOB side steps with walker Dr Meier spoke with Mother Mony Barrios via phone/ with witness and to pt herself procedures alternatives and risks discussed pt scheduled for AVR, MVR vs replacement on saturday she will require aggressive rehab post surgery 09/06 now on room air VSS, plan is for surgery in am 09/08/16 POD 1: MVR/AVR doing well. She has no complaints and feels better than she did prior to surgery. 09/09/16 c/o incisional pain - requesting narcotics Incontinent of urine - she states this has been ongoing for at least 6 weeks? Hgb dropped, but CXR is stable with minimal chest tube output Objective: Vital Signs Date Time Temp Pulse Resp B/P Pulse Ox O2 Delivery O2 Flow Rate FiO2 09/09/16 10:23 99 Nasal Cannula 2.00 09/09/16 08:01 104 09/09/16 07:45 99 Nasal Cannula 2.00 09/09/16 07:45 98.3 98 14 95/64 99 09/09/16 07:00 100 09/09/16 04:49 91 Room Air 3.00 09/09/16 04:48 98.1 101 20 104/60 92 09/09/16 04:00 99 09/09/16 03:00 100 09/09/16 02:00 103 09/09/16 01:00 99 09/09/16 00:18 97.8 100 20 99/53 99 09/09/16 00:14 91 Room Air 3.00 09/09/16 00:00 99 09/08/16 23:00 100 09/08/16 22:00 102 09/08/16 21:00 101 09/08/16 20:25 92 Room Air 3.00 09/08/16 20:19 97.9 100 20 97/67 99 09/08/16 20:00 100 09/08/16 19:00 97 09/08/16 18:00 92 09/08/16 17:00 93 09/08/16 16:40 93 Nasal Cannula 3.00 09/08/16 16:00 98 09/08/16 15:00 97.7 97 17 98/76 99 09/08/16 15:00 100 09/08/16 15:00 98 Room Air 3.00 09/08/16 14:44 98.2 92 17 105/69 100 09/08/16 14:40 100 09/08/16 11:41 90 09/08/16 11:40 98.3 80 18 140/80 100 09/08/16 11:00 97 Nasal Cannula 4.00 Labs: Laboratory Tests Test 09/09/16 09/09/16 06:30 09:15 White Blood Count 12.4 TH/MM3 (4.0-11.0) Red Blood Count 2.23 MIL/MM3 (4.00-5.30) Hemoglobin 6.9 GM/DL (11.6-15.3) Hematocrit 21.0 % (35.0-46.0) Mean Corpuscular Volume 94.2 FL (80.0-100.0) Mean Corpuscular Hemoglobin 30.8 PG (27.0-34.0) Mean Corpuscular Hemoglobin 32.8 % Concent (32.0-36.0) Red Cell Distribution Width 19.7 % (11.6-17.2) Platelet Count 81 TH/MM3 (150-450) Mean Platelet Volume 9.3 FL (7.0-11.0) Neutrophils (%) (Auto) 59.5 % (16.0-70.0) Lymphocytes (%) (Auto) 26.3 % (9.0-44.0) Monocytes (%) (Auto) 13.6 % (0.0-8.0) Eosinophils (%) (Auto) 0.4 % (0.0-4.0) Basophils (%) (Auto) 0.2 % (0.0-2.0) Neutrophils # (Auto) 7.4 TH/MM3 (1.8-7.7) Lymphocytes # (Auto) 3.3 TH/MM3 (1.0-4.8) Monocytes # (Auto) 1.7 TH/MM3 (0-0.9) Eosinophils # (Auto) 0.1 TH/MM3 (0-0.4) Basophils # (Auto) 0.0 TH/MM3 (0-0.2) CBC Comment AUTO DIFF Differential Total Cells 100 Counted Neutrophils % (Manual) 57 % (16-70) Band Neutrophils % 1 % (0-6) Lymphocytes % 33 % (9-44) Monocytes % 9 % (0-8) Neutrophils # (Manual) 7.2 TH/MM3 (1.8-7.7) Nucleated Red Blood Cells 1 /100 WBC (0-0) Differential Comment FINAL DIFF MANUAL Platelet Estimate LOW (NORMAL) Platelet Morphology Comment NORMAL (NORMAL) Sodium Level 142 MEQ/L (136-145) Potassium Level 3.5 MEQ/L (3.5-5.1) Chloride Level 108 MEQ/L (98-107) Carbon Dioxide Level 24.6 MEQ/L (21.0-32.0) Anion Gap 9 MEQ/L (5-15) Blood Urea Nitrogen 12 MG/DL (7-18) Creatinine 0.44 MG/DL (0.50-1.00) Estimat Glomerular Filtration 172 ML/MIN Rate (>89) Random Glucose 92 MG/DL (74-106) Calcium Level 7.5 MG/DL (8.5-10.1) Magnesium Level 1.8 MG/DL (1.5-2.5) Blood Type O POSITIVE Antibody Screen NEGATIVE Crossmatch Leukocyte-Reduced Red Blood Cells Blood Bank Comment Result Diagram: 09/09/1662909/09/16629 Cardiovascular: RRR Telemetry: NSR, ST Pulmonary: CTA GI/: NABS, NT Incision: dry an intact CT: 50ml/12 hrs Plan: Diurese Supp K, Mg Out of bed, ambulate with assist PT/OT - will require inpatient rehab Daily INR, coumadin 2 units pRBC (1) Pulmonary edema Plan: on scheduled lasix (2) History of bacterial endocarditis Plan: BC neg (3) Mitral and aortic valve regurgitation Plan: scheduled for AVR, mitral valve replacement vs mitral repair on saturday (4) Dvt femoral (deep venous thrombosis) (5) Pulmonary embolism, bilateral Plan: on lovenox/ hold prior to surgery (6) CHF due to valvular disease (7) Hx of cerebral embolic infarction Plan: left sided weakness, will need aggressive rehab PT/OT post surgery Ale Meier MD Sep 09, 2016 10:56
[2016-09-09] MEDS ORDERED: KETOROLAC TROMETHAMINE 60 MG/2 ML (IM) VIAL IM SCH (12:00)
[2016-09-09] MEDS: FUROSEMIDE 40 MG/4 ML VIAL IV PUSH SCH (12:37)
[2016-09-09] MEDS: POTASSIUM CHLORIDE 10 MEQ CONTROLLED RELEASE TAB PO SCH ×2 (12:38→19:47)
[2016-09-09] MEDS: KETOROLAC TROMETHAMINE 30 MG/ML (IVP) VIAL IV PUSH SCH ×3 (13:48→19:46)
[2016-09-09] MEDS: METOPROLOL TARTRATE 5 MG/5 ML VIAL IV PUSH PRN (18:48)
[2016-09-09 20:45] LABS: PROTHROMBIN TIME - PATIENT 11.2 SEC (9.8-11.6)
[2016-09-09] MEDS: WARFARIN SOD 2.5 MG TAB PO SCH (22:15)
[2016-09-10] VITALS (25 sets, daily range): BP systolic 91–129; BP diastolic 52–90; PULSE 98–114; RESP 18–20; TEMP 97.3–98.4; O2SAT 96–99
[2016-09-10] MEDS: KETOROLAC TROMETHAMINE 30 MG/ML (IVP) VIAL IV PUSH SCH ×5 (01:55→21:34)
[2016-09-10] MEDS: PANTOPRAZOLE SOD 40 MG DELAYED RELEASE TAB PO SCH (06:00)
[2016-09-10 06:22] LABS: HEMATOCRIT 27.9 % (35.0-46.0); MEAN CELL VOLUME 92.1 FL (80.0-100.0); MEAN CORPUSCULAR HEMOGLOBIN 30.9 PG (27.0-34.0); MEAN CORPUSCULAR HGB CONC 33.5 % (32.0-36.0); PLATELET COUNT 97 TH/MM3 (150-450); RED BLOOD COUNT 3.03 MIL/MM3 (4.00-5.30); RED CELL DISTRIBUTION WIDTH 19.3 % (11.6-17.2); WHITE BLOOD COUNT 11.4 TH/MM3 (4.0-11.0)
[2016-09-10 06:31] LABS: PROTHROMBIN TIME - PATIENT 11.2 SEC (9.8-11.6)
[2016-09-10 06:33] LABS: REVIEW FLAG FINAL
[2016-09-10 06:48] LABS: BICARBONATE 26.7 MEQ/L (21.0-32.0)
[2016-09-10] MEDS: CHLORHEXIDINE 0.12% (ORAL KIT) 15 ML CUP MT SCH (08:00)
[2016-09-10] MEDS: ENOXAPARIN SODIUM 80 MG/0.8 ML SYRINGE SQ SCH (08:43)
[2016-09-10] MEDS: MULTIVITAMINS/MINERALS THERAPEUTIC TAB PO SCH (08:44)
[2016-09-10] MEDS: FUROSEMIDE 40 MG/4 ML VIAL IV PUSH SCH (08:44)
[2016-09-10] MEDS: MUPIROCIN 2% OINT 1 APPLIC/GM SYR EACH NARE SCH (08:44)
[2016-09-10] MEDS: POTASSIUM CHLORIDE 10 MEQ CONTROLLED RELEASE TAB PO SCH ×2 (08:44→20:14)
[2016-09-10] MEDS: ASPIRIN 81 MG CHEW TAB PO SCH (08:44)
[2016-09-10] MEDS: SODIUM CHLORIDE 0.9% FLUSH 5 ML FLUSH IV FLUSH SCH ×2 (08:45→20:17)
[2016-09-10] MEDS: DOCUSATE SODIUM 100 MG CAP PO SCH ×2 (08:50→20:16)
[2016-09-10] MEDS: POLYETHYLENE GLYCOL 17 GM PKG PO SCH (08:50)
--- NOTE | 2016-09-10 09:31 | HHI.IDPN ---
Subjective Subjective Remarks Notes reviewed D/W RN Temps ok S/P AVR and MVR 09/07 Doing well post op NO fever Not SOB On RA Just worked with PT, stood up and transferred to [facility] using a walker Still with lines in R side of neck Had cardiac arrest 08/31 PM, successfully resuscitated Extubated 09/01, but reintubated 09/01 PM for respiratory distress. 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 Vital Signs Date Time Temp Pulse Resp B/P Pulse Ox O2 Delivery O2 Flow Rate FiO2 09/10/16 07:55 98 21 09/10/16 06:00 101 09/10/16 05:26 98.4 109 18 111/67 98 09/10/16 05:25 98 Room Air 09/10/16 05:00 98 09/10/16 04:00 106 09/10/16 03:00 103 09/10/16 02:00 107 09/10/16 01:00 107 09/10/16 00:00 109 09/09/16 23:35 98 Room Air 09/09/16 23:25 98.0 109 18 94/62 98 09/09/16 23:00 108 09/09/16 22:00 106 09/09/16 21:00 110 09/09/16 21:00 18 09/09/16 20:00 108 09/09/16 19:20 98 Room Air 09/09/16 19:20 98.0 112 18 100/57 98 09/09/16 19:00 112 09/09/16 18:02 119 09/09/16 17:13 105 09/09/16 16:00 109 09/09/16 15:43 98 21 09/09/16 15:23 98.2 112 18 121/74 98 09/09/16 15:21 98 Room Air 09/09/16 15:21 98 21 09/09/16 15:00 112 09/09/16 14:00 117 09/09/16 13:00 111 09/09/16 12:34 97.8 103 22 125/69 99 09/09/16 12:00 100 09/09/16 11:15 98.2 101 20 114/59 98 09/09/16 11:00 104 09/09/16 10:23 99 Nasal Cannula 2.00 09/09/16 10:00 104 09/09/16 09/09/16 09/10/16 15:00 23:00 07:00 Intake Total 1520 ml Balance 1520 ml Intake Oral 1020 ml Packed Cells 500 ml # Voids 7 4 # Bowel Movements 1 2 . Laboratory Tests Test 09/09/16 09/10/16 06:30 06:00 White Blood Count 12.4 TH/MM3 11.4 TH/MM3 Red Blood Count 2.23 MIL/MM3 3.03 MIL/MM3 Hemoglobin 6.9 GM/DL 9.4 GM/DL Hematocrit 21.0 % 27.9 % Mean Corpuscular Volume 94.2 FL 92.1 FL Mean Corpuscular Hemoglobin 30.8 PG 30.9 PG Mean Corpuscular Hemoglobin 32.8 % 33.5 % Concent Red Cell Distribution Width 19.7 % 19.3 % Platelet Count 81 TH/MM3 97 TH/MM3 Mean Platelet Volume 9.3 FL 9.1 FL Neutrophils (%) (Auto) 59.5 % Lymphocytes (%) (Auto) 26.3 % Monocytes (%) (Auto) 13.6 % Eosinophils (%) (Auto) 0.4 % Basophils (%) (Auto) 0.2 % Neutrophils # (Auto) 7.4 TH/MM3 Lymphocytes # (Auto) 3.3 TH/MM3 Monocytes # (Auto) 1.7 TH/MM3 Eosinophils # (Auto) 0.1 TH/MM3 Basophils # (Auto) 0.0 TH/MM3 CBC Comment AUTO DIFF Differential Total Cells 100 Counted Neutrophils % (Manual) 57 % Band Neutrophils % 1 % Lymphocytes % 33 % Monocytes % 9 % Neutrophils # (Manual) 7.2 TH/MM3 Nucleated Red Blood Cells 1 /100 WBC Differential Comment FINAL DIFF MANUAL Platelet Estimate LOW Platelet Morphology Comment NORMAL Laboratory Tests Test 09/09/16 09/10/16 06:30 06:00 Sodium Level 142 MEQ/L 143 MEQ/L Potassium Level 3.5 MEQ/L 4.0 MEQ/L Chloride Level 108 MEQ/L 110 MEQ/L Carbon Dioxide Level 24.6 MEQ/L 26.7 MEQ/L Anion Gap 9 MEQ/L 6 MEQ/L Blood Urea Nitrogen 12 MG/DL 11 MG/DL Creatinine 0.44 MG/DL 0.35 MG/DL Estimat Glomerular Filtration 172 ML/MIN 223 ML/MIN Rate Random Glucose 92 MG/DL 87 MG/DL Calcium Level 7.5 MG/DL 7.7 MG/DL Magnesium Level 1.8 MG/DL Microbiology Date/Time Procedure Status Source Growth 09/07/16 10:10 Gram Stain - Final Resulted Wound Other 09/07/16 10:10 Wound Culture - Preliminary Resulted Wound Other NO GROWTH IN 48 HOURS. 09/07/16 10:10 Acid Fast Stain - Final Resulted Wound Other NO ACID FAST BACILLI SEEN 09/07/16 10:10 Mycobacterial Culture Resulted Wound Other Pending 09/07/16 10:10 Fungal Smear - Final Resulted Wound Other NO FUNGAL ELEMENTS SEEN. 09/07/16 10:10 Fungal Culture Resulted Wound Other Pending 09/07/16 10:32 Gram Stain - Final Resulted Wound Other 09/07/16 10:32 Wound Culture - Preliminary Resulted Wound Other NO GROWTH IN 48 HOURS. 09/07/16 10:32 Acid Fast Stain - Final Resulted Wound Other NO ACID FAST BACILLI SEEN 09/07/16 10:32 Mycobacterial Culture Resulted Wound Other Pending 09/07/16 10:32 Fungal Smear - Final Resulted Wound Other NO FUNGAL ELEMENTS SEEN. 09/07/16 10:32 Fungal Culture Resulted Wound Other Pending Imaging Head CT 09/01/16 0000 Signed Impressions: Service Date/Time: Thursday, September 01, 2016 03:23 - CONCLUSION: Stable CT brain with unchanged areas of low attenuation more notably within the right middle lobe. These are likely related to areas of old infarction. No acute intracranial abnormality. Abram Reyes MD CT Angiography 09/01/16 0000 Signed Impressions: Service Date/Time: Thursday, September 01, 2016 10:23 - CONCLUSION: 1. Bilateral consolidation and effusions. 2. Bilateral lower lobe pulmonary emboli. Jonny Neal MD Chest X-Ray 08/31/16 0000 Signed Impressions: Service Date/Time: Wednesday, August 31, 2016 23:01 - CONCLUSION: Cardiomegaly with bibasilar densities and small pleural effusions. Support lines and tubes as described above. Abram Reyes MD Lower Extremity Ultrasound 08/29/16 0000 Signed Impressions: Service Date/Time: Monday, August 29, 2016 21:13 - CONCLUSION: 1. No evidence for DVT. Jonny Neal MD Physical Exam GENERAL: awake, calm and cooperative, up in chair, NAD, pn RA SKIN: Cool and dry. No generalized rash. No embolic lesions noted. HEENT: Hunter conjunctivae, no petechia or hemorrhage. No scleral icterus. Moist oral mucosa. NECK: Trachea midline. Supple, nontender, no meningeal signs.Heart sounds difficult to hear due to coarse rhonchi on L side. RESPIRATORY: Has dressing on her sternotomy incision. NO rub. Some scattered rhonchi GASTROINTESTINAL: Abdomen soft, nondistended, bowel sounds present and normoactive. No guarding. No rebound. MUSCULOSKELETAL: Extremities without clubbing, or cyanosis. No edema in BLE. NEUROLOGICAL: very restless PSYCH: calm and cooperative LINE: Central lines ok Assessment & Plan Remarks IMPRESSION S/P MVR and AVR Sep 07, has tissue valves Bilateral pulmonary infiltrates, due to pumonary edema due to her severe valvular heart disease from previous IE Hx MV and AV IE, previous ly had MRSA Oct 2015 S/P Rx, and Strep viridans Jun 2016 Hx MDR PSAE, MRSA infection Previous episode of C diff colitis Respiratory failure, has been intubated 2x S/P cardiac arrest 08/31 RECOMMENDATION Monitor off Abx Monitor respiratory status Clinically doing well from ID standpoint I will see patient prn. Please call if with any new ID issue or question D/W Kenia Medrano MD Sep 10, 2016 09:30 valvular heart disease from previous IE Hx MV and AV IE, previous ly had MRSA Oct 2015 S/P Rx, and Strep viridans Jun 2016 Hx MDR PSAE, MRSA infection Previous episode of C diff colitis Respiratory failure, has been intubated 2x S/P cardiac arrest 08/31 RECOMMENDATION Monitor off Abx Monitor respiratory status Clinically doing well from ID standpoint I will see patient prn. Please call if with any new ID issue or question D/W Kenia Medrano MD Sep 10, 2016 09:30
--- NOTE | 2016-09-10 14:15 | PD.CAR.PN ---
CVT Progress Note CVT: POD #: 3 Subjective/Hospital Course: Patient well-known to our service. 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 She has had numerous hospitalizations secondary to complications from the SBE. She is a high-risk surgical candidate secondary to her clinical comorbidities and social behaviors. She has no complaints this morning. 09/01/16 Events overnight noted with cardiac arrest, CPR, etc Patient intubated on vent 09/03 pt was extubated then reintubated after 8 hours now on CPAP, awake and following commands CTA chest noted/ Bilateral PE now on lovenox neg : urine drug tox screen on scheduled lasix, potassium being replaced 09/04 pt extubated yesterday, now on 2 liter nasal cannula congested cough, needs aggressive pulm toileting cultures neg to date recommend PT/ OOB will discuss timing of surgery with Dr Meier 09/05 All labs / xrays / micro reviewed with Dr Meier pt is on nasal cannula, weak, requires assistance to get OOB side steps with walker Dr Meier spoke with Mother Mony Barrios via phone/ with witness and to pt herself procedures alternatives and risks discussed pt scheduled for AVR, MVR vs replacement on saturday she will require aggressive rehab post surgery 09/06 now on room air VSS, plan is for surgery in am 09/08/16 POD 1: MVR/AVR doing well. She has no complaints and feels better than she did prior to surgery. 09/09/16 c/o incisional pain - requesting narcotics Incontinent of urine - she states this has been ongoing for at least 6 weeks? Hgb dropped, but CXR is stable with minimal chest tube output 09/10/16 still incontinent of urine , + 1500/12 hrs continue diuresis aggressive PT/OT calling taxi multiple times periods of anxiety and depression/ will consult Psych no narcotics eval for rehab placement Objective: GENERAL: frail appearing female SKIN: Warm and dry. HEAD: Normocephalic. EYES: No scleral icterus. No injection or drainage. NECK: Supple, trachea midline. No JVD or lymphadenopathy. CARDIOVASCULAR: Regular rate and rhythm without murmurs, gallops, or rubs. RESPIRATORY: coarse bilateral breath sounds , Breath sounds equal bilaterally. No accessory muscle use. GASTROINTESTINAL: Abdomen soft, non-tender, nondistended. MUSCULOSKELETAL: No cyanosis, or edema. left hand contracted left sided weakness BACK: Nontender without obvious deformity. No CVA tenderness. Vital Signs Date Time Temp Pulse Resp B/P Pulse Ox O2 Delivery O2 Flow Rate FiO2 09/10/16 14:03 114 09/10/16 13:25 111 09/10/16 13:01 18 09/10/16 12:38 114 09/10/16 11:33 98 Room Air 09/10/16 11:33 112 09/10/16 11:33 97.7 113 18 110/52 98 09/10/16 10:01 110 09/10/16 09:58 109 09/10/16 07:55 98 21 09/10/16 07:40 101 09/10/16 07:40 97 Room Air 09/10/16 07:40 97.3 100 18 129/90 97 Arterial Line 09/10/16 06:00 101 09/10/16 05:26 98.4 109 18 111/67 98 09/10/16 05:25 98 Room Air 09/10/16 05:00 98 09/10/16 04:00 106 09/10/16 03:00 103 09/10/16 02:00 107 09/10/16 01:00 107 09/10/16 00:00 109 09/09/16 23:35 98 Room Air 09/09/16 23:25 98.0 109 18 94/62 98 09/09/16 23:00 108 09/09/16 22:00 106 09/09/16 21:00 110 09/09/16 20:00 108 09/09/16 19:20 98 Room Air 09/09/16 19:20 98.0 112 18 100/57 98 09/09/16 19:00 112 09/09/16 18:02 119 09/09/16 17:13 105 09/09/16 16:00 109 09/09/16 15:43 98 21 09/09/16 15:23 98.2 112 18 121/74 98 09/09/16 15:21 98 Room Air 09/09/16 15:21 98 21 09/09/16 15:00 112 Labs: Laboratory Tests Test 09/10/16 06:00 White Blood Count 11.4 TH/MM3 (4.0-11.0) Red Blood Count 3.03 MIL/MM3 (4.00-5.30) Hemoglobin 9.4 GM/DL (11.6-15.3) Hematocrit 27.9 % (35.0-46.0) Mean Corpuscular Volume 92.1 FL (80.0-100.0) Mean Corpuscular Hemoglobin 30.9 PG (27.0-34.0) Mean Corpuscular Hemoglobin 33.5 % Concent (32.0-36.0) Red Cell Distribution Width 19.3 % (11.6-17.2) Platelet Count 97 TH/MM3 (150-450) Mean Platelet Volume 9.1 FL (7.0-11.0) Prothrombin Time 11.2 SEC (9.8-11.6) Prothromb Time International 1.0 RATIO Ratio Sodium Level 143 MEQ/L (136-145) Potassium Level 4.0 MEQ/L (3.5-5.1) Chloride Level 110 MEQ/L (98-107) Carbon Dioxide Level 26.7 MEQ/L (21.0-32.0) Anion Gap 6 MEQ/L (5-15) Blood Urea Nitrogen 11 MG/DL (7-18) Creatinine 0.35 MG/DL (0.50-1.00) Estimat Glomerular Filtration 223 ML/MIN Rate (>89) Random Glucose 87 MG/DL (74-106) Calcium Level 7.7 MG/DL (8.5-10.1) Phosphorus Level 0.6 MG/DL (2.5-4.9) Magnesium Level 2.0 MG/DL (1.5-2.5) Result Diagram: 09/10/16 0600 09/10/16 0600 Telemetry: NSR> ST (1) Pulmonary edema Plan: on scheduled lasix/ reduce dose to daily (2) History of bacterial endocarditis Plan: BC neg (3) Mitral and aortic valve regurgitation Plan: aggressive pulm toileting ezpap acapella (4) Dvt femoral (deep venous thrombosis) Plan: on coumadin / goal INR 2-2.5 (5) Pulmonary embolism, bilateral Plan: on lovenox/ hold prior to surgery (6) CHF due to valvular disease (7) Hx of cerebral embolic infarction Plan: left sided weakness, will need aggressive rehab PT/OT post surgery (8) Anxiety Plan: consult psych Edith Adorno Sep 10, 2016 14:15
[2016-09-10] MEDS: MAGNESIUM SULFATE 1 GM PREMIX 100 ML IV SCH ×2 (15:00→16:29)
[2016-09-10] MEDS ORDERED: POTASSIUM PHOSPHATE INJ 30 MMOL in SODIUM CHLOR 0.9% 250 ML INJ 250 ML IV ONE (15:00)
[2016-09-10] MEDS: WARFARIN SOD 2.5 MG TAB PO SCH (16:29)
[2016-09-10] MEDS: POTASSIUM PHOSPHATE MONOBASIC 500 MG TAB PO SCH (20:14)
[2016-09-11] VITALS (25 sets, daily range): BP systolic 103–120; BP diastolic 69–84; PULSE 94–115; RESP 18–24; TEMP 98–99.9; O2SAT 98–100
[2016-09-11] MEDS: CHLORHEXIDINE GLUCONATE 2 % 1 PACK (2 CLOTHS) TOP SCH (04:00)
[2016-09-11 04:02] LABS: HEMATOCRIT 28.8 % (35.0-46.0); MEAN CELL VOLUME 94.8 FL (80.0-100.0); MEAN CORPUSCULAR HEMOGLOBIN 31.1 PG (27.0-34.0); MEAN CORPUSCULAR HGB CONC 32.8 % (32.0-36.0); PLATELET COUNT 129 TH/MM3 (150-450); RED BLOOD COUNT 3.03 MIL/MM3 (4.00-5.30); RED CELL DISTRIBUTION WIDTH 19.7 % (11.6-17.2); REVIEW FLAG FINAL; WHITE BLOOD COUNT 9.9 TH/MM3 (4.0-11.0)
[2016-09-11 04:10] LABS: INTERNATIONAL NORMALIZED RATIO 1.3 RATIO; PROTHROMBIN TIME - PATIENT 14.5 SEC (9.8-11.6)
[2016-09-11 04:24] LABS: BICARBONATE 27.2 MEQ/L (21.0-32.0); MAGNESIUM 2.5 MG/DL (1.5-2.5); POTASSIUM 5.2 MEQ/L (3.5-5.1)
[2016-09-11] MEDS: PANTOPRAZOLE SOD 40 MG DELAYED RELEASE TAB PO SCH (04:54)
[2016-09-11] MEDS: KETOROLAC TROMETHAMINE 30 MG/ML (IVP) VIAL IV PUSH SCH ×3 (04:54→18:12)
[2016-09-11] MEDS: POLYETHYLENE GLYCOL 17 GM PKG PO SCH (09:00)
[2016-09-11] MEDS: POTASSIUM PHOSPHATE MONOBASIC 500 MG TAB PO SCH ×2 (09:40→21:02)
[2016-09-11] MEDS: ASPIRIN 81 MG CHEW TAB PO SCH (09:40)
[2016-09-11] MEDS: MULTIVITAMINS/MINERALS THERAPEUTIC TAB PO SCH (09:40)
[2016-09-11] MEDS: CARVEDILOL 3.125 MG TAB PO SCH ×2 (09:40→21:02)
[2016-09-11] MEDS: DOCUSATE SODIUM 100 MG CAP PO SCH ×2 (09:40→21:02)
[2016-09-11] MEDS: SODIUM CHLORIDE 0.9% FLUSH 5 ML FLUSH IV FLUSH SCH ×2 (09:41→21:00)
[2016-09-11] MEDS: ENOXAPARIN SODIUM 80 MG/0.8 ML SYRINGE SQ SCH (09:41)
--- NOTE | 2016-09-11 09:59 | RADRPT ---
EXAM DATE/TIME: 09/11/2016 08:52 [facility] COMPARISON: CHEST SINGLE AP, September 08, 2016, 3:35. INDICATIONS: Short of breath, atelectasis MEDICAL HISTORY: Hepatitis C. Endocarditis SURGICAL HISTORY: Valve replacement ENCOUNTER: Subsequent ACUITY: 1 month PAIN SCORE: 0/10 LOCATION: Bilateral chest FINDINGS: Median sternotomy wires are noted status post cardiac surgery. Cardiac valve replacement is again no nuno. The heart is enlarged. Moderate pulmonary vascular congestion is noted. small bilateral pleur al effusions are noted. CONCLUSION: 1. Moderate pulmonary vascular congestion. 2. Small bilateral pleural effusions. 3. Cardiomegaly. Ayden Carpenter MD on September 11, 2016 at 9:48 Board Certified Radiologist. This report was verified electronically.
--- NOTE | 2016-09-11 11:29 | PD.CAR.PN ---
CVT Progress Note CVT: POD #: 4 Subjective/Hospital Course: Patient well-known to our service. 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 She has had numerous hospitalizations secondary to complications from the SBE. She is a high-risk surgical candidate secondary to her clinical comorbidities and social behaviors. She has no complaints this morning. 09/01/16 Events overnight noted with cardiac arrest, CPR, etc Patient intubated on vent 09/03 pt was extubated then reintubated after 8 hours now on CPAP, awake and following commands CTA chest noted/ Bilateral PE now on lovenox neg : urine drug tox screen on scheduled lasix, potassium being replaced 09/04 pt extubated yesterday, now on 2 liter nasal cannula congested cough, needs aggressive pulm toileting cultures neg to date recommend PT/ OOB will discuss timing of surgery with Dr Meier 09/05 All labs / xrays / micro reviewed with Dr Meier pt is on nasal cannula, weak, requires assistance to get OOB side steps with walker Dr Meier spoke with Mother Mony Barrios via phone/ with witness and to pt herself procedures alternatives and risks discussed pt scheduled for AVR, MVR vs replacement on saturday she will require aggressive rehab post surgery 09/06 now on room air VSS, plan is for surgery in am 09/08/16 POD 1: MVR/AVR doing well. She has no complaints and feels better than she did prior to surgery. 09/09/16 c/o incisional pain - requesting narcotics Incontinent of urine - she states this has been ongoing for at least 6 weeks? Hgb dropped, but CXR is stable with minimal chest tube output 09/10/16 still incontinent of urine , + 1500/12 hrs continue diuresis aggressive PT/OT calling taxi multiple times periods of anxiety and depression/ will consult Psych no narcotics eval for rehab placement 09/11 pt doing better today, less anxious, await eval by Psych diuresis dc per Dr Meier on low dose BB, unable to start isabelle 2/2 labile BP consider restarting celexa consider dc to rehab tommorow Objective: GENERAL: frail appearing female SKIN: Warm and dry. HEAD: Normocephalic. EYES: No scleral icterus. No injection or drainage. NECK: Supple, trachea midline. No JVD or lymphadenopathy. CARDIOVASCULAR: Regular rate and rhythm without murmurs, gallops, or rubs. slightly tachycardic RESPIRATORY: coarse breath sounds on left congested cough , coughing up clear sputum Breath sounds equal bilaterally. No accessory muscle use. GASTROINTESTINAL: Abdomen soft, non-tender, nondistended. MUSCULOSKELETAL: No cyanosis, or edema. BACK: Nontender without obvious deformity. No CVA tenderness. Vital Signs Date Time Temp Pulse Resp B/P Pulse Ox O2 Delivery O2 Flow Rate FiO2 09/11/16 10:04 113 09/11/16 09:00 114 09/11/16 08:00 98 Room Air 09/11/16 08:00 98.0 110 18 120/84 98 09/11/16 08:00 110 09/11/16 07:51 98 21 09/11/16 06:00 110 09/11/16 05:09 110 09/11/16 04:00 102 09/11/16 03:00 109 09/11/16 03:00 98.2 109 18 104/69 100 09/11/16 03:00 96 Room Air 09/11/16 02:00 101 09/11/16 01:00 94 09/11/16 00:00 100 09/10/16 23:00 96 Room Air 09/10/16 23:00 99 09/10/16 23:00 98.1 99 18 120/84 99 09/10/16 22:00 104 09/10/16 21:00 110 09/10/16 20:00 111 09/10/16 19:32 97 21 09/10/16 19:30 97.9 107 20 111/73 96 09/10/16 19:30 96 Room Air 09/10/16 19:30 108 09/10/16 18:30 112 09/10/16 18:12 18 09/10/16 17:20 114 09/10/16 15:30 110 09/10/16 15:30 98 Room Air 09/10/16 15:30 97.8 114 18 91/60 98 09/10/16 14:03 114 09/10/16 13:25 111 09/10/16 12:38 114 09/10/16 11:33 98 Room Air 09/10/16 11:33 112 09/10/16 11:33 97.7 113 18 110/52 98 Labs: Laboratory Tests Test 09/11/16 03:24 White Blood Count 9.9 TH/MM3 (4.0-11.0) Red Blood Count 3.03 MIL/MM3 (4.00-5.30) Hemoglobin 9.4 GM/DL (11.6-15.3) Hematocrit 28.8 % (35.0-46.0) Mean Corpuscular Volume 94.8 FL (80.0-100.0) Mean Corpuscular Hemoglobin 31.1 PG (27.0-34.0) Mean Corpuscular Hemoglobin 32.8 % Concent (32.0-36.0) Red Cell Distribution Width 19.7 % (11.6-17.2) Platelet Count 129 TH/MM3 (150-450) Mean Platelet Volume 10.2 FL (7.0-11.0) Prothrombin Time 14.5 SEC (9.8-11.6) Prothromb Time International 1.3 RATIO Ratio Sodium Level 141 MEQ/L (136-145) Potassium Level 5.2 MEQ/L (3.5-5.1) Chloride Level 110 MEQ/L (98-107) Carbon Dioxide Level 27.2 MEQ/L (21.0-32.0) Anion Gap 4 MEQ/L (5-15) Blood Urea Nitrogen 20 MG/DL (7-18) Creatinine 0.55 MG/DL (0.50-1.00) Estimat Glomerular Filtration 133 ML/MIN Rate (>89) Random Glucose 124 MG/DL (74-106) Calcium Level 7.8 MG/DL (8.5-10.1) Phosphorus Level 2.2 MG/DL (2.5-4.9) Magnesium Level 2.5 MG/DL (1.5-2.5) Result Diagram: 09/11/164 09/11/16 0324 Telemetry: NSR (1) Pulmonary edema Plan: on scheduled lasix/ reduce dose to daily (2) History of bacterial endocarditis Plan: BC neg (3) Mitral and aortic valve regurgitation Plan: aggressive pulm toileting ezpap acapella (4) Dvt femoral (deep venous thrombosis) Plan: on coumadin / goal INR 2-2.5/ INR 1.3, will give additional 2.5/ total 5 (5) Pulmonary embolism, bilateral Plan: on lovenox/ hold prior to surgery (6) CHF due to valvular disease (7) Hx of cerebral embolic infarction Plan: left sided weakness, will need aggressive rehab PT/OT post surgery (8) Anxiety Plan: consult psych/ resume Edith Tracy Sep 11, 2016 11:28
[2016-09-11] MEDS ORDERED: CITALOPRAM HYDROBROMIDE 20 MG TAB PO SCH (11:30)
[2016-09-11] MEDS: FUROSEMIDE 40 MG TAB PO SCH (12:07)
[2016-09-11] MEDS ORDERED: WARFARIN SOD 2.5 MG TAB PO ONE (16:00)
[2016-09-11] MEDS: WARFARIN SOD 2.5 MG TAB PO SCH (16:55)
--- NOTE | 2016-09-11 17:14 | PD.CONS ---
Provisional Diagnosis Admission Date Aug 29, 2016 at 22:39 [place]. Adjustment with depressed mood and anxiety, history of anxiety and depression [place]. 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 She has had numerous hospitalizations secondary to complications from the SBE. Consult to psychiatry due to episodes symptoms of anxiety and depression. On psychiatric evaluation today patient was calm and cooperative, patient says that at times she has been mad with a personal, "I don't feel that they're treatment well, but having a very sensitive person sometimes". Patient stated that she is not depressed, she denies anhedonia, denies hopelessness, denies helplessness, denies amotivation. she is motivated to continue her medical treatment and medical recommendations, to be better and continue enjoying her life. However, she states, that is not easy to be hospitalized such a long time with such as serious medical problem. Patient is oriented 3, she denies suicidal ideation, she denies visual and auditory hallucinations. She does report frequent anxiety mostly related with isolation, poor human and social interaction, and also she reports difficulty sleeping at night. Patient denies the use of any illicit substances or alcohol. Review of Systems Constitutional: COMPLAINS OF: Fatigue Endocrine: DENIES: Abnorml menstrual pattern, Heat/cold intolerance, Polydipsia , Polyuria, Polyphagia Ears, nose, mouth, throat: DENIES: Tinnitus, Hearing loss, Vertigo, Nasal discharge, Oral lesions, Throat pain, Hoarseness, Ear Pain, Running Nose, Epistaxis, Sinus Pain, Toothache, Odynophagia Respiratory: COMPLAINS OF: Shortness of breath Cardiovascular: COMPLAINS OF: Claudication Musculoskeletal: DENIES: Joint pain, Muscle aches, Stiffness, Joint Swelling, Back pain, Neck pain Integumentary: DENIES: Abnormal pigmentation, Pruritus, Rash, Nail changes, Breast masses, Breast skin changes, Nipple discharge Hematologic/lymphatic: DENIES: Bruising, Lymphadenopathy Immunologic/allergic: DENIES: Eczema, Urticaria Neurologic: DENIES: Abnormal gait, Headache, Localized weakness, Paresthesias, Seizures, Speech Problems, Tremor, Poor Balance Psychiatric: COMPLAINS OF: Anxiety Past Family Social History Coded Allergies: *MDRO Multi-Drug Resistant Organism (Verified Adverse Reaction, Unknown, 08/29/16) MRSA PCR screen positive - 10/18/2015 & 08/12/16 MRSA urine, blood, sputum and CSF- 10/2015 MDR PSAE in sputum 2015 Active Scripts Acetaminophen (Tylenol)325 Mg Hte111 Mg PO Q6H PRN (PAIN SCALE 1 TO 4) #30 CAP Ref 0 Prov:Edith Adorno 09/13/16 Warfarin (Coumadin)2.5 Mg Tab2.5 Mg PO DAILY@16 #30 TAB Ref 2 keep INR 2.5-3, hold INR>3.5 Prov:Edith Adorno 09/13/16 Ramipril 2.5 Mg Cap2.5 Mg PO DAILY #30 CAP Ref 2 Prov:Edith Adorno 09/13/16 Pantoprazole 40 Mg Tab40 Mg PO DAILY@06 #30 TAB Prov:Edith Adorno 09/13/16 Furosemide (Lasix)40 Mg Tab20 Mg PO DAILY #30 TAB Ref 1 Prov:Edith Adorno 09/13/16 Citalopram (Celexa)40 Mg Tab40 Mg PO DAILY #30 TAB Ref 2 Prov:Edith Adorno 09/13/16 Carvedilol (Coreg)3.125 Mg Tab3.125 Mg PO Q12HR #60 TAB Ref 2 Prov:Edith Adorno 09/13/16 [Aspirin] (Aspirin Chew)81 MG CHEW No Conflict Check81 Mg PO DAILY #100 TAB.CHEW Prov:Edith Adorno 09/13/16 Docusate Sodium (Dok)100 Mg Pku345 Mg PO BID PRN (CONSTIPATION) #60 CAP Prov:Hollis Cali MD 08/10/16 Albuterol 18 GM Inh (Ventolin Hfa 18 GM Inh)90 Mcg/Act Aer2 Puff INH Q4-6H PRN ( SHORTNESS OF BREATH) #1 INHALER Ref 1 Prov:Hollis Cali MD 08/10/16 Lactobacillus Acidophilus (Acidophilus/l-Sporogenes)1 Tab Tab1 Tab PO TID #90 TAB Ref 1 Prov:Hollis Cali MD 08/10/16 Multiple Vitamins W/ Iron (Hm One Daily/Iron)1 Tab Tab1 Tab PO DAILY #30 TAB Ref 1 Prov:Hollis Cali MD 08/10/16 Discontinued Scripts Furosemide (Lasix)20 Mg Tab20 Mg PO DAILY 7 Days Ref 0 Prov:Delfina Richmond MD 08/20/16 Amoxicillin 500 Mg Men377 Mg PO QID #56 CAP Ref 0 Prov:Fatimah Gray MD, R3 08/17/16 Oxycodone 5 Mg Tab10 Mg PO Q6H PRN (PAIN SCALE 6 TO 10) #40 TAB Prov:Fatimah Gray MD, R3 08/17/16 Potassium Chloride Microencaps 20 Meq Tab40 Meq PO DAILY #60 TAB Ref 1 Prov:Hollis Cali MD 08/10/16 Bumetanide 1 Mg Tab1 Mg PO BID@,18 #60 TAB Ref 1 Prov:Hollis Cali MD 08/10/16 Baclofen 10 Mg Tab5 Mg PO Q8HR #60 TAB Ref 1 Prov:Hollis Cali MD 08/10/16 Temazepam (Restoril)15 Mg Cap15 Mg PO HS PRN (INSOMNIA) #30 CAP Ref 0 Prov:Hollis Cali MD 08/10/16 Citalopram (Celexa)20 Mg Tab20 Mg PO DAILY #30 TAB Ref 1 Prov:Hollis Cali MD 08/10/16 Gabapentin 800 Mg Hok209 Mg PO TID #90 TAB Ref 1 Prov:Hollis Cali MD 08/10/16 Current Medications Medications (Trade) Dose Ordered Sig/Nicky Route Start Time Stop Time Status Last Admin (Brethine Inj) 1 mg UNSCH PRN SQ 09/01/16 22:45 (NS Flush) 2 ml BID IV FLUSH 09/05/16 21:00 09/11/16 09:41 (NS Flush) 2 ml UNSCH PRN IV FLUSH 09/05/16 11:45 (Pill Splitter) 1 ea UNSCH PRN OTHER 09/05/16 12:15 (Aspirin Chew) 81 mg DAILY PO 09/08/16 09:00 09/11/16 09:40 (Protonix) 40 mg DAILY@06 PO 09/08/16 06:00 09/11/16 04:54 (Tylenol) 650 mg Q4H PRN PO 09/07/16 12:45 (Zofran Inj) 4 mg Q6H PRN IV PUSH 09/07/16 12:45 (Apresoline Inj) 10 mg Q4H PRN IV 09/07/16 12:45 Metoprolol Tartrate 2.5 mg 2.5 mg Q1H PRN IV PUSH 09/07/16 12:45 09/09/16 18:48 Magnesium Sulfate 2 gm/Sodium Chloride 104 ml @ 100 mls/hr UNSCH PRN IV 09/07/16 12:45 (Magnesium Sulfate Inj/NS Inj) 104 ml @ 50 mls/hr UNSCH PRN IV 09/07/16 12:45 (D50w (Vial) Inj) 25 ml UNSCH PRN IV PUSH 09/07/16 12:45 09/07/16 21:38 (Colace) 100 mg BID PO 09/09/16 09:00 09/11/16 09:40 (Theragran M Tab) 1 tab DAILY PO 09/08/16 09:00 09/11/16 09:40 (Milk Of Magnesia Liq) 30 ml DAILY PRN PO 09/08/16 07:45 (Dulcolax Ec) 5 mg UNSCH PRN PO 09/08/16 07:45 09/08/16 09:11 (Miralax) 17 gm DAILY PO 09/09/16 09:00 09/09/16 09:06 (Fleets Enema (Adult)) 133 ml UNSCH PRN RECTAL 09/08/16 07:45 (Lovenox Inj) 70 mg Q24H SQ 09/09/16 09:00 09/11/16 09:41 (Coumadin) 2.5 mg DAILY@16 PO 09/09/16 21:00 09/11/16 16:55 (Toradol Inj) 15 mg Q6HR IV PUSH 09/09/16 13:30 09/14/16 13:29 09/11/16 12:08 (K-Phos) 500 mg Q12HR PO 09/10/16 21:00 09/11/16 09:40 (Coreg) 3.125 mg Q12HR PO 09/11/16 09:00 09/11/16 09:40 (Lasix) 40 mg DAILY PO 09/11/16 12:00 09/11/16 12:07 (CeleXA) 20 mg DAILY PO 09/11/16 11:30 09/11/16 12:07 Family History She denies Social History Patient was born and raised in [place], she has been living in [place] for 7 years, she lives with both parents, she has a boyfriend, she is unemployed, 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 Physical Exam Vital Signs Vital Signs Date Time Temp Pulse Resp B/P Pulse Ox O2 Delivery O2 Flow Rate FiO2 09/11/16 16:48 112 09/11/16 15:30 98.2 20 104/75 98 09/11/16 15:30 Room Air 09/11/16 07:51 21 09/09/16 10:23 2.00 I/O 09/10/16 09/10/16 09/11/16 08:00 16:00 00:00 Intake Total 620 ml Balance 620 ml Mental Status Examination Appearance young woman, skinny, younger than stated age, she is calm and cooperative Speech: Unremarkable Orientation: x3 Memory: Unremarkable Thought Process: Logical Thought Content: Unremarkable Hallucination Type: None Suicidal Ideation: No Previous Suicide Attempts: No Homicidal Ideation: No Insight: Good Affect: Good Mood: Appropriate Motor Activity: Normal gait Assessment & Plan Problem List: (1) Adjustment disorder with mixed anxiety and depressed mood Assessment & Plan: The patient is a 26-year-old woman, single, domiciled with parents, unemployed, with psychiatric history of depression and anxiety, no previous psychiatric hospitalizations, no previous suicidal attempts , she is on Celexa 20 mg for anxiety, Patient well-known to our service, medical history of 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 She has had numerous hospitalizations secondary to complications from the SBE. Consult to psychiatry due to episodes symptoms of anxiety and depression. On psychiatric evaluation today patient was calm and cooperative, patient denies symptoms of depression such as anhedonia, hopelessness, helplessness, worthlessness, poor appetite, low energy, suicidal and was ideation. However, patient reports frequent episodes of anxiety during the day and poor sleep most probably secondary and exacerbated by acute medical condition. Patient is fully oriented 3, no gross cognitive impairment observed , no fluctuation of consciousness, attention deficit present during this evaluation. She is highly motivated to continue medical treatment and medical recommendation. She does not meet criteria for psychiatric admission at this moment. We will increase Celexa to 40 mg for anxiety and depression, we'll add Remeron 50 mg to help with her depression and also to help with insomnia. We' ll continue follow-up. ICD Code: F43.23 Assessment & Plan Estimated LOS: Vazquez Cortez MD Sep 11, 2016 17:14
[2016-09-11] MEDS ORDERED: MIRTAZAPINE 15 MG TAB PO SCH (21:00)
[2016-09-12] VITALS (28 sets, daily range): BP systolic 102–122; BP diastolic 70–84; PULSE 69–132; RESP 20–26; TEMP 97.7–100.4; O2SAT 96–100
[2016-09-12] MEDS: KETOROLAC TROMETHAMINE 30 MG/ML (IVP) VIAL IV PUSH SCH ×4 (00:07→18:08)
[2016-09-12] MEDS: METOPROLOL TARTRATE 5 MG/5 ML VIAL IV PUSH PRN ×2 (04:34→05:51)
[2016-09-12] MEDS: PANTOPRAZOLE SOD 40 MG DELAYED RELEASE TAB PO SCH (05:49)
[2016-09-12 06:34] LABS: PROTHROMBIN TIME - PATIENT 22.2 SEC (9.8-11.6)
[2016-09-12] MEDS: POTASSIUM PHOSPHATE MONOBASIC 500 MG TAB PO SCH ×2 (09:00→22:02)
[2016-09-12] MEDS: SODIUM CHLORIDE 0.9% FLUSH 5 ML FLUSH IV FLUSH SCH ×2 (09:00→22:03)
[2016-09-12] MEDS: POLYETHYLENE GLYCOL 17 GM PKG PO SCH (09:00)
[2016-09-12] MEDS: DOCUSATE SODIUM 100 MG CAP PO SCH ×2 (09:00→22:02)
[2016-09-12] MEDS: MULTIVITAMINS/MINERALS THERAPEUTIC TAB PO SCH (10:26)
[2016-09-12] MEDS: ASPIRIN 81 MG CHEW TAB PO SCH (10:26)
[2016-09-12] MEDS: CITALOPRAM HYDROBROMIDE 40 MG TAB PO SCH (10:26)
[2016-09-12] MEDS: FUROSEMIDE 40 MG TAB PO SCH (10:26)
[2016-09-12] MEDS: CARVEDILOL 3.125 MG TAB PO SCH ×2 (10:26→22:02)
[2016-09-12] MEDS: ENOXAPARIN SODIUM 80 MG/0.8 ML SYRINGE SQ SCH (10:28)
[2016-09-12 11:01] LABS: HEMATOCRIT 28.9 % (35.0-46.0); RED BLOOD COUNT 3.16 MIL/MM3 (4.00-5.30); WHITE BLOOD COUNT 9.3 TH/MM3 (4.0-11.0)
[2016-09-12 11:02] LABS: AUTOMATED NEUTROPHIL # 7.3 TH/MM3 (1.8-7.7); BASOPHIL # 0.1 TH/MM3 (0-0.2); BASOPHIL % 0.9 % (0.0-2.0); EOSINOPHIL # 0.1 TH/MM3 (0-0.4); EOSINOPHIL % 0.7 % (0.0-4.0); HEMO FLAGS DIFF FINAL; LYMPH % 11.9 % (9.0-44.0); LYMPHOCYTE # 1.1 TH/MM3 (1.0-4.8); MEAN CELL VOLUME 91.5 FL (80.0-100.0); MEAN CORPUSCULAR HEMOGLOBIN 30.6 PG (27.0-34.0); MEAN CORPUSCULAR HGB CONC 33.5 % (32.0-36.0); MONO % 8.2 % (0.0-8.0); NEUT % 78.3 % (16.0-70.0); PLATELET COUNT 209 TH/MM3 (150-450); RED CELL DISTRIBUTION WIDTH 20.1 % (11.6-17.2)
[2016-09-12 11:19] LABS: BICARBONATE 23.7 MEQ/L (21.0-32.0); MAGNESIUM 2.1 MG/DL (1.5-2.5); POTASSIUM 4.3 MEQ/L (3.5-5.1)
--- NOTE | 2016-09-12 15:24 | PD.CAR.PN ---
CVT Progress Note CVT: POD #: 5 Subjective/Hospital Course: Patient well-known to our service. 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 She has had numerous hospitalizations secondary to complications from the SBE. She is a high-risk surgical candidate secondary to her clinical comorbidities and social behaviors. She has no complaints this morning. 09/01/16 Events overnight noted with cardiac arrest, CPR, etc Patient intubated on vent 09/03 pt was extubated then reintubated after 8 hours now on CPAP, awake and following commands CTA chest noted/ Bilateral PE now on lovenox neg : urine drug tox screen on scheduled lasix, potassium being replaced 09/04 pt extubated yesterday, now on 2 liter nasal cannula congested cough, needs aggressive pulm toileting cultures neg to date recommend PT/ OOB will discuss timing of surgery with Dr Meier 09/05 All labs / xrays / micro reviewed with Dr Meier pt is on nasal cannula, weak, requires assistance to get OOB side steps with walker Dr Meier spoke with Mother Mony Barrios via phone/ with witness and to pt herself procedures alternatives and risks discussed pt scheduled for AVR, MVR vs replacement on saturday she will require aggressive rehab post surgery 09/06 now on room air VSS, plan is for surgery in am 09/08/16 POD 1: MVR/AVR doing well. She has no complaints and feels better than she did prior to surgery. 09/09/16 c/o incisional pain - requesting narcotics Incontinent of urine - she states this has been ongoing for at least 6 weeks? Hgb dropped, but CXR is stable with minimal chest tube output 09/10/16 still incontinent of urine , + 1500/12 hrs continue diuresis aggressive PT/OT calling taxi multiple times periods of anxiety and depression/ will consult Psych no narcotics eval for rehab placement 09/11 pt doing better today, less anxious, await eval by Psych diuresis dc per Dr Meier on low dose BB, unable to start isabelle 2/2 labile BP consider restarting celexa consider dc to rehab tommorow 09/12 low grade temp last pm, no leukocytosis continue aggressive pulm toileting ezpap, acapella , nebs check UA and stool for c diff increase activity as tolerated very sleepy this am, psych notified, Remeron decreased eval for dc to rehab if afebrile in am Objective: GENERAL: SKIN: Warm and dry./ sternal incision intact and well approximated HEAD: Normocephalic. EYES: No scleral icterus. No injection or drainage. NECK: Supple, trachea midline. No JVD or lymphadenopathy. CARDIOVASCULAR: Regular rate and rhythm without murmurs, gallops, or rubs. soft sm / + click RESPIRATORY: very coarse breath sounds , few basilar crackles , scattered rhonchi Breath sounds equal bilaterally. No accessory muscle use. GASTROINTESTINAL: Abdomen soft, non-tender, nondistended. MUSCULOSKELETAL: No cyanosis, or edema. BACK: Nontender without obvious deformity. No CVA tenderness. Vital Signs Date Time Temp Pulse Resp B/P Pulse Ox O2 Delivery O2 Flow Rate FiO2 09/12/16 14:56 98.1 99 24 102/70 97 09/12/16 14:00 97 09/12/16 13:00 109 09/12/16 12:00 110 09/12/16 11:00 97.7 111 20 109/76 99 09/12/16 11:00 Room Air 09/12/16 11:00 100 09/12/16 10:00 103 09/12/16 09:00 96 21 09/12/16 09:00 105 09/12/16 08:00 105 09/12/16 07:30 100.4 111 24 110/70 96 09/12/16 07:00 110 09/12/16 07:00 96 Room Air 09/12/16 06:00 115 09/12/16 05:00 125 09/12/16 04:00 132 09/12/16 03:00 112 09/12/16 03:00 98 Room Air 09/12/16 03:00 100.0 132 26 122/84 98 09/12/16 02:00 109 09/12/16 01:00 111 09/12/16 00:00 110 09/11/16 23:00 110 09/11/16 23:00 99 Room Air 09/11/16 23:00 99.9 109 24 103/71 98 09/11/16 22:36 98 Nasal Cannula 09/11/16 22:00 111 09/11/16 21:00 106 09/11/16 20:00 103 09/11/16 19:00 99 Room Air 09/11/16 19:00 98.2 107 18 107/74 99 09/11/16 19:00 100 09/11/16 18:13 100 09/11/16 17:43 102 09/11/16 16:48 112 09/11/16 15:30 95 09/11/16 15:30 98.2 95 20 104/75 98 09/11/16 15:30 98 Room Air Labs: Laboratory Tests Test 09/12/16 09/12/16 05:55 10:40 Prothrombin Time 22.2 SEC (9.8-11.6) Prothromb Time International 2.0 RATIO Ratio Creatinine 0.50 MG/DL 0.61 MG/DL (0.50-1.00) (0.50-1.00) Estimat Glomerular Filtration 148 ML/MIN 118 ML/MIN Rate (>89) (>89) White Blood Count 9.3 TH/MM3 (4.0-11.0) Red Blood Count 3.16 MIL/MM3 (4.00-5.30) Hemoglobin 9.7 GM/DL (11.6-15.3) Hematocrit 28.9 % (35.0-46.0) Mean Corpuscular Volume 91.5 FL (80.0-100.0) Mean Corpuscular Hemoglobin 30.6 PG (27.0-34.0) Mean Corpuscular Hemoglobin 33.5 % Concent (32.0-36.0) Red Cell Distribution Width 20.1 % (11.6-17.2) Platelet Count 209 TH/MM3 (150-450) Mean Platelet Volume 9.2 FL (7.0-11.0) Neutrophils (%) (Auto) 78.3 % (16.0-70.0) Lymphocytes (%) (Auto) 11.9 % (9.0-44.0) Monocytes (%) (Auto) 8.2 % (0.0-8.0) Eosinophils (%) (Auto) 0.7 % (0.0-4.0) Basophils (%) (Auto) 0.9 % (0.0-2.0) Neutrophils # (Auto) 7.3 TH/MM3 (1.8-7.7) Lymphocytes # (Auto) 1.1 TH/MM3 (1.0-4.8) Monocytes # (Auto) 0.8 TH/MM3 (0-0.9) Eosinophils # (Auto) 0.1 TH/MM3 (0-0.4) Basophils # (Auto) 0.1 TH/MM3 (0-0.2) CBC Comment DIFF FINAL Differential Comment Hematology Comments Sodium Level 140 MEQ/L (136-145) Potassium Level 4.3 MEQ/L (3.5-5.1) Chloride Level 108 MEQ/L (98-107) Carbon Dioxide Level 23.7 MEQ/L (21.0-32.0) Anion Gap 8 MEQ/L (5-15) Blood Urea Nitrogen 16 MG/DL (7-18) Random Glucose 118 MG/DL (74-106) Calcium Level 8.5 MG/DL (8.5-10.1) Phosphorus Level 2.5 MG/DL (2.5-4.9) Magnesium Level 2.1 MG/DL (1.5-2.5) B-Type Natriuretic Peptide 901 PG/ML (0-100) Result Diagram: 09/12/16 1040 09/12/16 1040 Telemetry: NSR> ST (1) Pulmonary edema Plan: on scheduled lasix/ (2) History of bacterial endocarditis Plan: BC neg (3) Mitral and aortic valve regurgitation Plan: aggressive pulm toileting ezpap acapella low grade temp, no leukocytosis check UA, check stool if neg, ok to transfer to rehab (4) Dvt femoral (deep venous thrombosis) Plan: on coumadin / goal INR 2-2.5/ INR 2.0 dc lovenox . (5) Pulmonary embolism, bilateral Plan: on lovenox/ hold prior to surgery (6) CHF due to valvular disease (7) Hx of cerebral embolic infarction Plan: left sided weakness, will need aggressive rehab PT/OT post surgery (8) Anxiety Plan: psych following / resume celexa/ low dose remeron at night Edith Adorno Sep 12, 2016 15:24
[2016-09-12] MEDS: WARFARIN SOD 2.5 MG TAB PO SCH (16:00)
[2016-09-12 16:46] LABS: BLOOD, URINE NEG (NEG); COMMENT (UR) CULT NOT INDICATED; CULTURE IF INDICATED CULT NOT INDICATED; GLUCOSE,URINE NEG (NEG); KETONE, URINE NEG (NEG); NITRITE,URINE NEG (NEG); PH, URINE 5.5 (5.0-8.5); SQUAMOUS EPITHELIAL CELL URINE <1 /hpf (0-5); TRANSITIONAL EPI CELLS, URINE <1 /hpf; URINE COLOR YELLOW (YELLW/STRAW)
[2016-09-12 18:41] LABS: C. DIFF EPI 027 PRESUMPTIVE NEGATIVE (NEGATIVE); C. DIFF TOXIN PCR NEGATIVE (NEGATIVE)
[2016-09-13] VITALS (19 sets, daily range): BP systolic 116–131; BP diastolic 80–97; PULSE 95–103; RESP 18–22; TEMP 97.5–98.4; O2SAT 95–100
[2016-09-13] MEDS: KETOROLAC TROMETHAMINE 30 MG/ML (IVP) VIAL IV PUSH SCH ×3 (00:01→12:09)
[2016-09-13] MEDS: PANTOPRAZOLE SOD 40 MG DELAYED RELEASE TAB PO SCH (06:11)
[2016-09-13 06:39] LABS: INTERNATIONAL NORMALIZED RATIO 2.1 RATIO; PROTHROMBIN TIME - PATIENT 23.7 SEC (9.8-11.6)
[2016-09-13] MEDS: POLYETHYLENE GLYCOL 17 GM PKG PO SCH (09:00)
[2016-09-13] MEDS: SODIUM CHLORIDE 0.9% FLUSH 5 ML FLUSH IV FLUSH SCH (10:08)
[2016-09-13] MEDS: FUROSEMIDE 40 MG TAB PO SCH (10:09)
[2016-09-13] MEDS: MULTIVITAMINS/MINERALS THERAPEUTIC TAB PO SCH (10:09)
[2016-09-13] MEDS: CITALOPRAM HYDROBROMIDE 40 MG TAB PO SCH (10:09)
[2016-09-13] MEDS: CARVEDILOL 3.125 MG TAB PO SCH (10:10)
[2016-09-13] MEDS: ASPIRIN 81 MG CHEW TAB PO SCH (10:10)
[2016-09-13] MEDS ORDERED: RAMIPRIL 2.5 MG CAP PO SCH (11:15)
[2016-09-13] MEDS ORDERED: PANT40TA3 PO (13:40)
[2016-09-13] MEDS ORDERED: Aspirin Chew PO (13:40)
[2016-09-13] MEDS ORDERED: CARV3.125 PO (13:40)
[2016-09-13] MEDS ORDERED: COUM2.5T PO (13:40)
[2016-09-13] MEDS ORDERED: RAMI2.5C PO (13:40)
[2016-09-13] MEDS ORDERED: FURO1TAB60 PO (13:40)
[2016-09-13] MEDS ORDERED: CELE40TA PO (13:40)
[2016-09-13] MEDS ORDERED: ACET1CAP18 PO (13:40)
--- NOTE | 2016-09-13 13:53 | HHI.DS ---
Discharge Summary Admission Date Aug 29, 2016 at 22:39 Discharge Date: Sep 13, 2016 Admitting Diagnosis Dyspnea, Anasarca, HyperK (1) Left hemiparesis Diagnosis: Secondary (2) Left leg DVT Diagnosis: Secondary (3) Pulmonary embolism, bilateral Diagnosis: Secondary (4) Combined systolic and diastolic congestive heart failure, NYHA class 4 Diagnosis: Principal (5) Mitral and aortic valve regurgitation (6) S/P AVR (aortic valve replacement) Diagnosis: Secondary (7) S/P MVR (mitral valve replacement) Diagnosis: Secondary Procedures 09/07 AVR with a 19 Trifecta tissue valve MVR with a 27 Mi Tee Ease tissue valve ROSANGELA Brief History 26-year-old female with a medical history significant for 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 status post previous antibiotic therapy who presented to the ER with worsening shortness of breath which has been progressing over the last few months. She was evaluated at her primary care physician's office today and was advised to come to the ER. Patient was noted to be tachycardic with heart rate in the 130s respiratory rate 30s with significant edema on arrival. She was placed on nasal cannula initially however subsequently due to worsening respiratory status was placed on BiPAP. She received Lasix 80 mg IV and weight 1600 cc of urine in the ER. Patient was accepted for admission by critical care medicine service. When I evaluated the patient she was on BiPAP with full facemask, sitting up in the ER stretcher. Subjective: 08/31: diuresed net 10L negative yesterday with tid lasix dosing. on nasal cannula. feels much better. tolerating a diet. cardiac surgery evaluated her and will plan for AVR next week. 09/01: doing well yesterday afternoon, and was planning on transferring to hospitalist service and floor today. however, at 22:20, sustained a cardiac arrest. reviewing telemetry, it appears she went into unstable V Tach which then converted into a PEA arrest. CPR was performed for approximately 8 minutes with 2 rounds of epinephrine after which ROSC was obtained. She was emergently intubated and central line/art line were placed. This morning, she is off vasopressors, not hypoxic. she is starting to arouse and is briskly purposeful, although not following commands. Her electrolytes were aggressively replaced yesterday for severe hypokalemia, although her recheck potassium was normal. This morning, her K is again severely low. I have seen the patient and have ordered a STAT CT pulmonary angiogram. She had a negative CT PE done on 08/29 along with a negative LE u/s for DVT. 09/02: was extubated yesterday, completely at neurologic baseline. doing well on NC o2. diuresing. last night was reintubated for resp distress. also had received versed prn prior to this. still volume overloaded this AM. following commands. hypoxia improved. net 2L negative. 09/03: remained intubated yesterday for concerns over intravascular volume overload. net -5L. doing well this morning, though agitated. RASS +1, but CAM - . She does not want to remain intubated, though I am concerned about her recurrent flash pulmonary edema. 09/04: extubated yesterday. doing well on NC o2. still somewhat agitated. -4L/24h yesterday. Cr only slightly increased. 09/05: doing well on NC o2. net -2.2L/24h and net -26L since admission. Cr is downtrending. I discussed her case with Dr. Blanc today and Viola with CT surgery. plan for AVR/MVR on Saturday if she continues to do well. patient has no complaints this AM. 09/06: on room air today. -1.5L over 24h. now very close to 30L diuresed since admission. Cr continues to downtrend. Plan for AVR/MVR tomorrow. I have discussed with Dr. Meier today, and will discuss plan with anesthesia as well. 09/07: saw and evaluated the patient together with Dr. Meier immediately post- op. now POD 0 s/p sternotomy, AVR/MVR tissue. no significant events intra- operatively. intra-op ROSANGELA initially with severe RV dysfunction, post-pump mild RV dysfunction. EF 30%. of note, right atrial thrombus noted, stable pre- and post-pump. She arrives warm and off pressors, intubated, sedated. on precedex. 09/08: extubated yesterday. doing well today. CXR with increased pulmonary vascular congestion. weight up from yesterday. on 4L NC. tolerating ice chips. no complaints. uop adequate overnight, lactate cleared. CBC/BMP: 09/12/16 1040 09/12/16 1040 Significant Findings Laboratory Tests Test 09/11/16 09/12/16 09/12/16 09/13/16 03:24 05:55 10:40 06:15 Red Blood Count 3.03 MIL/MM3 3.16 MIL/MM3 (4.00-5.30) (4.00-5.30) Hemoglobin 9.4 GM/DL 9.7 GM/DL (11.6-15.3) (11.6-15.3) Hematocrit 28.8 % 28.9 % (35.0-46.0) (35.0-46.0) Red Cell Distribution Width 19.7 % 20.1 % (11.6-17.2) (11.6-17.2) Platelet Count 129 TH/MM3 (150-450) Prothrombin Time 14.5 SEC 22.2 SEC 23.7 SEC (9.8-11.6) (9.8-11.6) (9.8-11.6) Potassium Level 5.2 MEQ/L (3.5-5.1) Chloride Level 110 MEQ/L 108 MEQ/L (98-107) (98-107) Anion Gap 4 MEQ/L (5-15) Blood Urea Nitrogen 20 MG/DL (7-18) Random Glucose 124 MG/DL 118 MG/DL (74-106) (74-106) Calcium Level 7.8 MG/DL (8.5-10.1) Phosphorus Level 2.2 MG/DL (2.5-4.9) Neutrophils (%) (Auto) 78.3 % (16.0-70.0) Monocytes (%) (Auto) 8.2 % (0.0-8.0) B-Type Natriuretic Peptide 901 PG/ML (0-100) Imaging Last Impressions Chest X-Ray 09/11/16 0000 Signed Impressions: Service Date/Time: Sunday, September 11, 2016 08:52 - CONCLUSION: 1. Moderate pulmonary vascular congestion. 2. Small bilateral pleural effusions. 3. Cardiomegaly. Ayden Carpenter MD Upper Extremity Ultrasound 09/05/16 0000 Signed Impressions: Service Date/Time: Monday, September 05, 2016 19:42 - CONCLUSION: 1. Occlusive thrombus in the basilic and brachial veins in the left arm. Abram Reyes MD Head CT 09/01/16 0000 Signed Impressions: Service Date/Time: Thursday, September 01, 2016 03:23 - CONCLUSION: Stable CT brain with unchanged areas of low attenuation more notably within the right middle lobe. These are likely related to areas of old infarction. No acute intracranial abnormality. Abram Reyes MD CT Angiography 09/01/16 0000 Signed Impressions: Service Date/Time: Thursday, September 01, 2016 10:23 - CONCLUSION: 1. Bilateral consolidation and effusions. 2. Bilateral lower lobe pulmonary emboli. Jonny Neal MD Lower Extremity Ultrasound 08/29/16 0000 Signed Impressions: Service Date/Time: Monday, August 29, 2016 21:13 - CONCLUSION: 1. No evidence for DVT. Jonny Neal MD PE at Discharge GENERAL: SKIN: Warm and dry.sternal incision intact and well approximated HEAD: Normocephalic. EYES: No scleral icterus. No injection or drainage. NECK: Supple, trachea midline. No JVD or lymphadenopathy. CARDIOVASCULAR: Regular rate and rhythm without murmurs, gallops, or rubs. RESPIRATORY: few coarse breath sounds, Breath sounds equal bilaterally. No accessory muscle use. GASTROINTESTINAL: Abdomen soft, non-tender, nondistended. MUSCULOSKELETAL: No cyanosis, or edema. / left hemiparesis BACK: Nontender without obvious deformity. No CVA tenderness. Hospital Course 09/09/16 c/o incisional pain - requesting narcotics Incontinent of urine - she states this has been ongoing for at least 6 weeks? Hgb dropped, but CXR is stable with minimal chest tube output 09/10/16 still incontinent of urine , + 1500/12 hrs continue diuresis aggressive PT/OT calling taxi multiple times periods of anxiety and depression/ will consult Psych no narcotics eval for rehab placement 09/11 pt doing better today, less anxious, await eval by Psych diuresis dc per Dr Meier on low dose BB, unable to start isabelle 2/2 labile BP consider restarting celexa consider dc to rehab tommorow 09/12 low grade temp last pm, no leukocytosis continue aggressive pulm toileting ezpap, acapella , nebs check UA and stool for c diff increase activity as tolerated very sleepy this am, psych notified, Remeron decreased eval for dc to rehab if afebrile in am 09/13 no futher temps, stool neg for cdiff, ua unremarkable VSS INR stable will need aggressive rehab stable for dc low dose isabelle added Pt Condition on Discharge: Good Discharge Disposition: Rehab Inpatient Discharge Instructions DIET: Follow Instructions for: Heart Healthy Diet Activities you can perform: Shower Only-No Bath Activities to avoid: Lifting/Bending, Strenuous Activity, Driving Additional Activity Instructio: no lifting > 8 lbs or gallon of milk Follow up Referrals: Cardiology - 4 Weeks with Sapphire Rosado MD PCP Follow-up PCP Follow-up - 2 Weeks with Delfina Bojorquez MD New Orders: 2D ECHO - 2 Weeks BASIC METABOLIC PROF - 2 Weeks CBC NO DIFF - 2 Weeks PT/INR - 2-3 Days New Medications: Acetaminophen (Tylenol) 325 Mg Cap 650 MG PO Q6H PRN PAIN SCALE 1 TO 4 #30 Ref 0 CAP Carvedilol (Coreg) 3.125 Mg Tab 3.125 MG PO Q12HR Blood Pressure Management #60 Ref 2 TAB Citalopram (Celexa) 40 Mg Tab 40 MG PO DAILY Anxiety and/or Insomnia #30 Ref 2 TAB Furosemide (Lasix) 40 Mg Tab 20 MG PO DAILY edema #30 Ref 1 TAB Pantoprazole (Pantoprazole) 40 Mg Tab 40 MG PO DAILY@06 gerd #30 TAB Ramipril (Ramipril) 2.5 Mg Cap 2.5 MG PO DAILY Blood Pressure Management #30 Ref 2 CAP Warfarin (Coumadin) 2.5 Mg Tab 2.5 MG PO DAILY@16 keep INR 2.5-3, hold INR>3.5 Blood Clot Prevention #30 Ref 2 TAB ([Aspirin Chew]) 81 MG CHEW 81 MG PO DAILY #100 TAB.CHEW Continued Medications: Albuterol 18 GM Inh (Ventolin Hfa 18 GM Inh) 90 Mcg/Act Aer 2 PUFF INH Q4-6H PRN SHORTNESS OF BREATH #1 Ref 1 INHALER Docusate Sodium (Dok) 100 Mg Cap 100 MG PO BID PRN CONSTIPATION #60 CAP Lactobacillus Acidophilus (Acidophilus/l-Sporogenes) 1 Tab Tab 1 TAB PO TID #90 Ref 1 TAB Multiple Vitamins W/ Iron (Hm One Daily/Iron) 1 Tab Tab 1 TAB PO DAILY #30 Ref 1 TAB Discontinued Medications: Amoxicillin (Amoxicillin) 500 Mg Cap 500 MG PO QID Infection #56 Ref 0 CAP Baclofen (Baclofen) 10 Mg Tab 5 MG PO Q8HR #60 Ref 1 TAB Bumetanide (Bumetanide) 1 Mg Tab 1 MG PO BID@09,18 #60 Ref 1 TAB Citalopram (Celexa) 20 Mg Tab 20 MG PO DAILY Control Depression #30 Ref 1 TAB Furosemide (Lasix) 20 Mg Tab 20 MG PO DAILY Days 7 Ref 0 TAB Gabapentin (Gabapentin) 800 Mg Tab 800 MG PO TID #90 Ref 1 TAB Oxycodone (Oxycodone) 5 Mg Tab 10 MG PO Q6H PRN PAIN SCALE 6 TO 10 #40 TAB Potassium Chloride Microencaps (Potassium Chloride Microencaps) 20 Meq Tab 40 MEQ PO DAILY #60 Ref 1 TAB Temazepam (Restoril) 15 Mg Cap 15 MG PO HS PRN INSOMNIA #30 Ref 0 CAP Edith Adorno Sep 13, 2016 13:53
[2016-09-28] MEDS ORDERED: CARV3.125 PO (08:20)
[2016-09-28] MEDS ORDERED: Aspirin Chew PO (08:20)
[2016-09-28] MEDS ORDERED: DOCU1CAP39 PO (08:20)
[2016-09-28] MEDS ORDERED: COUM2.5T PO (08:20)
[2016-09-28] MEDS ORDERED: FURO1TAB60 PO (08:20)
[2016-09-28] MEDS ORDERED: HYDR-3516 PO (08:20)
[2016-09-28] MEDS ORDERED: FERR325T PO (08:20)
[2016-09-28] MEDS ORDERED: TEMA7.5C9 PO (08:20)
[2016-09-28] MEDS ORDERED: VENTAER INH (08:20)
[2016-09-28] MEDS ORDERED: CELE40TA PO (08:20)
[2016-09-28] MEDS ORDERED: PANT40TA3 PO (08:20)
[2016-09-28] MEDS ORDERED: MULT-28 PO (08:20)
[2016-09-28] MEDS ORDERED: RAMI2.5C PO (08:20)
[2016-10-19] MEDS ORDERED: HYDR-3516 PO (11:00)
[2016-10-22] MEDS ORDERED: TEMA7.5C9 PO (12:21)
[2016-10-22] MEDS ORDERED: MULT-28 PO ×2 (12:21→12:29)
[2016-10-26] MEDS ORDERED: COUM2.5T PO (09:29)
[2016-10-31] MEDS ORDERED: WARF-58 PO (16:24)
[2016-10-31] MEDS ORDERED: COUM2.5T PO (16:24)
== END 2016-09-13 16:00 | DRG 219 ==
LOC: NEPE 20:16 → NEDA 22:39 → NEDH 08-30 04:03 → HIME 08-30 07:18 → HCVR 09-07 12:20 → HCIN 09-08 14:14
PROVIDERS: ADMIT Thoracic Surgery (Cardiothoracic Vascular Surgery); ATTEND Thoracic Surgery (Cardiothoracic Vascular Surgery)
PROC: 5A1945Z Respiratory Ventilation, 24-96 Consecutive Hours (ICD-10-PCS; 2016-09-01)
PROC: 02HV33Z Insertion of Infusion Device into Superior Vena Cava, Percutaneous Approach (ICD-10-PCS; 2016-09-01)
PROC: 0BH17EZ Insertion of Endotracheal Airway into Trachea, Via Natural or Artificial Opening (ICD-10-PCS; 2016-09-01)
PROC: 0CJS8ZZ Inspection of Larynx, Via Natural or Artificial Opening Endoscopic (ICD-10-PCS; 2016-09-01)
PROC: 5A12012 Performance of Cardiac Output, Single, Manual (ICD-10-PCS; 2016-09-01)
PROC: 0BH17EZ Insertion of Endotracheal Airway into Trachea, Via Natural or Artificial Opening (ICD-10-PCS; 2016-09-01)
PROC: 5A1221Z Performance of Cardiac Output, Continuous (ICD-10-PCS; 2016-09-07)
PROC: B246ZZ4 Ultrasonography of Right and Left Heart, Transesophageal (ICD-10-PCS; 2016-09-07)
PROC: 02RF08Z Replacement of Aortic Valve with Zooplastic Tissue, Open Approach (ICD-10-PCS; principal; 2016-09-07 07:05)
PROC: 02RG08Z Replacement of Mitral Valve with Zooplastic Tissue, Open Approach (ICD-10-PCS; 2016-09-07 07:05)
DX: I50.43 Acute on chronic combined systolic (congestive) and diastolic (congestive) heart failure (principal); I26.99 Other pulmonary embolism without acute cor pulmonale; J96.01 Acute respiratory failure with hypoxia; J96.02 Acute respiratory failure with hypercapnia; I49.01 Ventricular fibrillation; I47.2 Ventricular tachycardia; I69.354 Hemiplegia and hemiparesis following cerebral infarction affecting left non-dominant side; I42.8 Other cardiomyopathies; E87.4 Mixed disorder of acid-base balance; I31.0 Chronic adhesive pericarditis; E44.0 Moderate protein-calorie malnutrition; N17.9 Acute kidney failure, unspecified; I82.419 Acute embolism and thrombosis of unspecified femoral vein; E87.5 Hyperkalemia; I08.0 Rheumatic disorders of both mitral and aortic valves; E87.6 Hypokalemia; R73.9 Hyperglycemia, unspecified; I51.3 Intracardiac thrombosis, not elsewhere classified; G89.29 Other chronic pain; R03.0 Elevated blood-pressure reading, without diagnosis of hypertension; R32 Unspecified urinary incontinence; F43.23 Adjustment disorder with mixed anxiety and depressed mood; F19.10 Other psychoactive substance abuse, uncomplicated; F41.0 Panic disorder [episodic paroxysmal anxiety]; Z78.1 Physical restraint status; Z86.14 Personal history of Methicillin resistant Staphylococcus aureus infection; Z86.718 Personal history of other venous thrombosis and embolism; Z87.891 Personal history of nicotine dependence; Z91.14 Patient's other noncompliance with medication regimen
CPT/HCPCS: 31500; 36430; 36556; 36600; 36620; 51702; 70450; 71010; 71275; 76937; 80048; 80053; 80202; 80301; 81001; 82248; 82550; 82552; 82565; 82805; 82948; 83605; 83735; 83880; 84100; 84132; 84155; 84484; 85007; 85014; 85025; 85027; 85610; 85730; 86850; 86900; 86901; 86920; 86922; 87015; 87040; 87070; 87102; 87116; 87176; 87205; 87206; 87449; 87493; 87641; 88305; 88311; 92950; 93005; 93306; 93308; 93318; 93970; 93971; 94002; 94003; 94150; 94640; 94664; 94667; 94668; 96365; 96366; 96375; C9113; C9399; G0479; J0131; J0171; J0456; J0610; J0690; J0692; J1120; J1170; J1630; J1644; J1650; J1815; J1885; J1940; J2150; J2250; J2270; J2370; J2720; J2930; J3010; J3370; J3475; J3480; J7030; J7050; J7060; J7120; P9016; P9047; Q9967

== ENCOUNTER 2016-11-06 19:47 | Inpatient (IN) | payer OTHER ==
[~2016-11-06] VITALS: Ht 157.5 cm; Wt 63.0 kg
[2016-11-06 19:40] VITALS: O2SAT 100
[~2016-11-06 19:47] MED LIST changes: +ACET1CAP18 PO; -AMOX500C PO; +Aspirin Chew PO; -BACL10TA PO; -BUME1TAB PO; +CARV3.125 PO; -CELE20TA PO; +CELE40TA PO; +COUM2.5T PO; +FERR325T PO; +FURO1TAB60 PO; -FURO1TAB62 PO; -GABA800T PO; +HYDR-3516 PO; -LACT PO; -OXYC-392 PO; +PANT40TA3 PO; -POTA20TA5 PO; +RAMI2.5C PO; -REST15CA PO; +TEMA7.5C9 PO; +WARF-58 PO
[2016-11-06] MEDS ORDERED: SODIUM CHLOR 0.9% 1000 ML INJ 1,000 ML IV ONE ×2 (19:59)
[2016-11-06] MEDS ORDERED: SODIUM CHLOR 0.9% 1000 ML INJ 100 ML IV ONE (19:59)
[2016-11-06] MEDS ORDERED: VANCOMYCIN INJ 1,000 MG in SODIUM CHLOR 0.9% 250 ML INJ 250 ML IV STA (19:59)
[2016-11-06] MEDS ORDERED: PIPERACIL-TAZO 3.375 GM PREMIX 50 ML IV ONE (20:00)
[2016-11-06 20:01] VITALS: BP 134/65; PULSE 106; RESP 44; TEMP 97.4
--- NOTE | 2016-11-06 20:12 | PD ---
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 The patient was brought in by ambulance services. The patient was difficult to obtain IV access and, therefore the patient had no axis placed prior to arrival. They reported that her initial O2 saturation was in the 60s. The patient was placed on a nonrebreather mask and the patient's O2 saturations came up into the 80s. The patient's reported initial systolic blood pressure was in the 60s. The patient's blood sugar was found to be 81. The patient on arrival is noted to have abdominal ascites and lower extremity edema. She reports that her edema has been worsening over the last 2 weeks. The history is able to be obtained from the patient is limited as the patient is dyspneic. The patient was immediately placed on BiPAP. IV access was obtained in this patient by me in the right external jugular vein. Normal saline IV fluids were started wide open. The patient's initial blood pressure on arrival was 136 systolic. The patient is noted to have paralysis/paresis of the left side with a prior history of stroke. The rest of the patient's history is obtained from reviewing the patient's electronic medical record. 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 The patient is followed through the [facility] for her primary care. Arthritis: No Asthma: No Autoimmune Disease: No Anxiety: Yes Depression: No Heart Rhythm Problems: No Cancer: No Cardiovascular Problems: Yes (ENDOCARDITIS) High Cholesterol: No Chemotherapy: No Chest Pain: No Congestive Heart Failure: No COPD: No Cerebrovascular Accident: Yes Diabetes: No Diminished Hearing: No Endocrine: No Gastrointestinal Disorders: Yes GERD: No Genitourinary: No Headaches: Yes Hiatal Hernia: No Immune Disorder: No Kidney Stones: No Musculoskeletal: No Neurologic: Yes Psychiatric: Yes Reproductive: No Respiratory: No Migraines: No Pneumonia: Yes Radiation Therapy: No Renal Failure: No Seizures: No Sleep Apnea: No Thyroid Disease: No Ulcer: No : 0 Para: 0 Miscarriage: 0 : 0 Past Surgical History Abdominal Surgery: No AICD: No Arteriovenous Shunt: No Cardiac Surgery: Yes Ear Surgery: No Endocrine Surgery: No Eye Surgery: No Genitourinary Surgery: No Gynecologic Surgery: No Insulin Pump: No Joint Replacement: No Oral Surgery: No Pacemaker: No Thoracic Surgery: Yes Other Surgery: No Social History Alcohol Use: No Tobacco Use: No Substance Use: No (HX IV Quit Oct 2016) Allergies-Medications (Allergen,Severity, Reaction): Coded Allergies: *MDRO Multi-Drug Resistant Organism (Verified Adverse Reaction, Unknown, ) MRSA PCR screen positive - 10/18/2015 & 08/12/16 MRSA urine, blood, sputum and CSF- 10/2015 MDR PSAE in sputum 2015 Reported Meds & Prescriptions Reported Meds & Active Scripts Active Warfarin 3 Mg Tab 3 Mg PO DAILY Take on Mon, Sat, Sat at 4pm Coumadin (Warfarin) 2.5 Mg Tab 2.5 Mg PO DAILY@16 Take Sun, Saturday, , Saturday at 4pm keep INR 2.0-2.5, hold INR>3.5 Hm One Daily/Iron (Multiple Vitamins W/ Iron) 1 Tab Tab 1 Tab PO DAILY Restoril (Temazepam) 7.5 Mg Cap 7.5 Mg PO HS PRN Hydrocodone-Acetaminophen 5-325 mg Tab 1 Tab PO Q8HR PRN Ferrous Sulfate 325 Mg Tab 325 Mg PO BID Lasix (Furosemide) 40 Mg Tab 40 Mg PO DAILY Ramipril 2.5 Mg Cap 2.5 Mg PO DAILY Pantoprazole (Pantoprazole Sodium) 40 Mg Tab 40 Mg PO DAILY@06 Celexa (Citalopram Hydrobromide) 40 Mg Tab 40 Mg PO DAILY Coreg (Carvedilol) 3.125 Mg Tab 3.125 Mg PO Q12HR [Aspirin Chew] 81 MG Chew 81 Mg PO DAILY Dok (Docusate Sodium) 100 Mg Cap 100 Mg PO BID PRN Ventolin Hfa 18 GM Inh (Albuterol Sulfate) 90 Mcg/Act Aer 2 Puff INH Q4-6H PRN Tylenol (Acetaminophen) 325 Mg Cap 650 Mg PO Q6H PRN Review of Systems General / Constitutional: No: Fever Eyes: No: Visual changes HENT: No: Headaches Cardiovascular: Positive: Chest Pain or Discomfort, Dyspnea on exertion Respiratory: Positive: Cough, Shortness of Breath Gastrointestinal: No: Nausea, Vomiting, Diarrhea, Abdominal Pain Genitourinary: No: Dysuria Musculoskeletal: No: Pain Skin: No Rash Neurologic: Positive: Focal Abnormalities (left upper and left lower extremity weakness related to prior CVA), Change in Mentation (confusion), No: Slurred Speech, Sensory Disturbance Psychiatric: No: Depression Endocrine: No: Polydipsia Hematologic/Lymphatic: No: Easy Bruising Physical Exam Narrative General: The patient is a well-developed well-nourished female, diaphoretic on arrival, dyspnea on arrival with tachypnea, on a nonrebreather mask. Head and Neck exam: Head is normocephalic atraumatic. Eyes: EOMI, pupils are equal round and reactive to light. Nose: Midline septum with pink mucous membranes Mouth: Dentition unremarkable. Moist mucus membranes. Posterior oropharynx is not erythematous. No tonsillar hypertrophy. Uvula midline. Airway patent. Neck: No palpable lymphadenopathy. No nuchal rigidity. No thyromegaly. Cardiovascular: Sinus tachycardia in the low 100s without murmurs, gallops, or rubs. Lungs: The patient is noted to be tachypneic. Clear to auscultation bilaterally. No wheezes, rhonchi, or rales are audible. Abdomen: Soft, with abdominal distention consistent with ascites with a fluid wave, without tenderness to palpation in all 4 quadrants of the abdomen. No guarding, rebound, or rigidity. Normal bowel sounds are audible. Extremities: No clubbing or cyanosis. The patient has 1-2+ pitting edema bilateral lower extremities. Her extremities are cool on palpation. Her initial distal pulses are difficult to palpate. She has a palpable femoral pulse. Back: No spinous process tenderness to palpation. No costovertebral angle tenderness to palpation. Neurologic Exam: The patient has no visible facial asymmetry. The patient has left upper and left lower extremity paresis related to a prior stroke. The patient appears to be at her baseline neurologic status compared to prior evaluations. Skin Exam: No rash noted. Intact skin that is warm and dry. She is pale appearing on arrival. Data Data Last Documented VS Vital Signs Date Time Temp Pulse Resp B/P Pulse Ox O2 Delivery O2 Flow Rate FiO2 11/06/16 20:39 103 34 147/72 100 BiPAP 100 11/06/16 20:01 97.4 Orders Electrocardiogram (11/06/16 19:59) Complete Blood Count With Diff (11/06/16 19:59) Comprehensive Metabolic Panel (11/06/16 19:59) Prothrombin Time / Inr (Pt) (11/06/16 19:59) Act Partial Throm Time (Ptt) (11/06/16 19:59) Lactic Acid Sepsis Protocol (11/06/16 19:59) Magnesium (Mg) (11/06/16 19:59) Lipase (11/06/16 19:59) Ckmb (Isoenzyme) Profile (11/06/16 19:59) Troponin I (11/06/16 19:59) Urinalysis - C+S If Indicated (11/06/16 19:59) Chest, Single Ap (11/06/16 19:59) Blood Glucose (11/06/16 19:59) Ecg Monitoring (11/06/16 19:59) Iv Access Insert/Monitor (11/06/16 19:59) Oximetry (11/06/16 19:59) Oxygen Administration (11/06/16 19:59) Vancomycin Inj (Vancomycin Inj) (11/06/16 19:59) Sodium Chlor 0.9% 1000 Ml Inj (Ns 1000 M (11/06/16 19:59) Sodium Chlor 0.9% 1000 Ml Inj (Ns 1000 M (11/06/16 19:59) Sodium Chlor 0.9% 1000 Ml Inj (Ns 1000 M (11/06/16 19:59) Piperacil-Tazo 3.375 Gm Premix (Zosyn 3. (11/06/16 20:00) B-Type Natriuretic Peptide (11/06/16 19:59) Beta Hcg (Quant/Titer) (11/06/16 19:59) Westergren Sedimentation Rate (11/06/16 19:59) Urinary Catheter Insert/Apply (11/06/16 19:59) Ed Urine Pregnancytest Poc (11/06/16 19:59) Resp Bipap / Cpap Non Invas Vt (11/06/16 ) Type And Screen (11/06/16 20:12) Red Blood Cells (Rbc) (11/06/16 20:12) Furosemide Inj (Lasix Inj) (11/06/16 20:30) Blood Gas Venous (Vbg) (11/06/16 20:55) Urine Culture (11/06/16 20:45) Admit Order (Ed Use Only) (11/06/16 22:10) Labs Laboratory Tests Test 11/06/16 11/06/16 11/06/16 11/06/16 19:47 20:45 20:55 21:16 Erythrocyte Sedimentation Rate 2 mm/hr Lactic Acid Level 10.0 mmol/L B-Type Natriuretic Peptide 2030 PG/ML Urine Color DARK-YELLOW Urine Turbidity CLOUDY Urine pH 6.[address] 1.024 Urine Protein 300 mg/dL Urine Glucose (UA) NEG mg/dL Urine Ketones NEG mg/dL Urine Occult Blood MOD Urine Nitrite NEG Urine Bilirubin SMALL Urine Urobilinogen 4.0 MG/DL Urine Leukocyte Esterase NEG Urine RBC 70 /hpf Urine WBC 24 /hpf Urine Squamous Epithelial 11 /hpf Cells Urine Amorphous Sediment MOD Urine Bacteria MOD /hpf Urine Hyaline Casts 81 /lpf Urine Mucus MOD /lpf Microscopic Urinalysis Comment CATH-CULTURE IND Blood Gas Puncture Site RT FEMORAL Blood Gas Patient Temperature 98.6 Venous Blood pH 7.19 Venous Blood Partial Pressure 39 mmHg CO2 Venous Blood Partial Pressure 33 mmHg O2 Venous Blood HCO3 14 mmol/L Venous Blood Oxygen Saturation 41 % Venous Blood Oxygen Content 6.9 Vol % Venous Blood Base Excess -12.2 mmol/L Oxygen Delivery Device BIPAP Blood Gas Ventilator Setting IPAP 12/EPAP 5 Blood Gas Inspired Oxygen 100 % White Blood Count 27.4 TH/MM3 Red Blood Count 3.73 MIL/MM3 Hemoglobin 11.2 GM/DL Hematocrit 36.6 % Mean Corpuscular Volume 98.1 FL Mean Corpuscular Hemoglobin 29.9 PG Mean Corpuscular Hemoglobin 30.5 % Concent Red Cell Distribution Width 19.6 % Platelet Count 45 TH/MM3 Mean Platelet Volume 10.3 FL Neutrophils (%) (Auto) 92.5 % Lymphocytes (%) (Auto) 4.7 % Monocytes (%) (Auto) 2.7 % Eosinophils (%) (Auto) 0.0 % Basophils (%) (Auto) 0.1 % Neutrophils # (Auto) 25.3 TH/MM3 Lymphocytes # (Auto) 1.3 TH/MM3 Monocytes # (Auto) 0.7 TH/MM3 Eosinophils # (Auto) 0.0 TH/MM3 Basophils # (Auto) 0.0 TH/MM3 CBC Comment AUTO DIFF Differential Total Cells 100 Counted Neutrophils % (Manual) 80 % Band Neutrophils % 17 % Lymphocytes % 1 % Monocytes % 2 % Neutrophils # (Manual) 26.6 TH/MM3 Nucleated Red Blood Cells 2 /100 WBC Differential Comment AUTO DIFF CONFIRMED Toxic Granulation 1+ Toxic Vacuolation PRESENT Platelet Estimate LOW Platelet Morphology Comment NORMAL Sodium Level 132 MEQ/L Potassium Level 6.2 MEQ/L Chloride Level 99 MEQ/L Carbon Dioxide Level 16.3 MEQ/L Anion Gap 17 MEQ/L Blood Urea Nitrogen 44 MG/DL Creatinine 1.14 MG/DL Estimat Glomerular Filtration 57 ML/MIN Rate Random Glucose 67 MG/DL Calcium Level 7.6 MG/DL Magnesium Level 2.4 MG/DL Total Bilirubin 2.8 MG/DL Aspartate Amino Transf 202 U/L (AST/SGOT) Alanine Aminotransferase 124 U/L (ALT/SGPT) Alkaline Phosphatase 169 U/L Total Creatine Kinase 65 U/L Troponin I 2.86 NG/ML Total Protein 6.2 GM/DL Albumin 2.3 GM/DL Lipase 105 U/L Human Chorionic Gonadotropin, LESS THAN 1 Quant MIU/ML Test 11/06/16 21:30 Blood Type O POSITIVE Antibody Screen POSITIVE Crossmatch Leukocyte-Reduced Red Blood Cells MDM Medical Decision Making Medical Screen Exam Complete: Yes Emergency Medical Condition: Yes Medical Record Reviewed: Yes Interpretation(s) Last Impressions Chest X-Ray 11/06/161958 Signed Impressions: Service Date/Time: Sunday, November 06, 2016 20:16 - CONCLUSION: Bilateral consolidation and left greater than right effusions, some of which is likely on the basis of failure. There is mild cardiomegaly. Mookie Scales MD Differential Diagnosis Sepsis of undetermined origin, versus pneumonia, versus urinary tract infection , versus cardiogenic shock, versus PE Narrative Course During the course of the patients emergency department visit, the patients history, examination, and differential diagnosis were reviewed with the patient. The patient had IV access obtained. The patient was placed on a technical programs manager with oximetry and blood pressure monitoring. Respiratory therapy was available at the bedside to assist with care and placed the patient on BiPAP at 12 over 5 in the 100%. This will be weaned as tolerated to maintain the patient's O2 saturations at greater than or equal to 94%. An ABG has been ordered. Blood cultures have been ordered. A lactate has been sent. The patient's initial EKG on arrival shows a sinus tachycardia rate of 107 QRSs duration a slightly widened at 116 ms, incomplete right bundle branch block is noted T waves are inverted in lead 3, no acute ST segment elevation or depression is noted. The patient was provided normal saline 30 mL per KG IV fluid bolus, vancomycin 1 g IV, Zosyn 3.375 g IV for suspected sepsis of undetermined origin. The patient's chest x-ray revealed bilateral pleural effusions and pulmonary edema suspicious for congestive heart failure exacerbation, therefore after the initial liter bolus of IV fluids, the patient's IV fluids were held and the patient was monitored closely. The patient was given Lasix 40 mg IV. The patient on reexamination after a single liter continued to have very little urine output, only 50 mL. The patient was given another liter of IV fluids. The patient's respiratory distress had improved on BiPAP. The patients laboratory studies were reviewed and remarkable for a white count 27.4, hemoglobin 11.2, platelets 45 with 80 neutrophils, 17 bands suspicious for sepsis. The patient's last complete blood count was done on September 28, 2016 and the platelets at that time were normal at 262, CMP is remarkable for sodium of 132, potassium 6.2, BUN is 44, creatinine 1.14, CO2 16.3, glucose 67, lactic acid is 10, liver enzymes are elevated, more than previously with a total bilirubin of 2.8, AST 202, ALT 124, alkaline phosphatase 169, CPK is 65, troponin I 2.86, lipase 105, test is negative. Urinalysis shows 300 protein, moderate occult blood, small bilirubin, 70 RBCs, 24 WBCs, moderate bacteria this is a catheterized specimen. Culture is indicated. The patients results were discussed with the patient, including the plan of care. I explained that further testing and/ or monitoring is indicated based on the patients history, examination, and/ or laboratory findings. Therefore, I recommended admission for additional evaluation. The patient expressed understanding and was agreeable with this plan. The patient was admitted to the hospital in critical condition and sent to a bed under the care of the [facility] residents and the rotating field assembler. Critical Care Narrative Aggregate critical care time was 45 minutes. Time to perform other separately billable procedures was not included in the critical care time. My time did not include minutes spent treating any other patients simultaneously or on activities that did not directly contribute to the patient's treatment. The services I provided to this patient were to treat and/or prevent clinically significant deterioration that could result in: Cardiovascular collapse, respiratory failure, hypoxic encephalopathy I provided critical care services requiring my management, as noted below: Chart data review, documentation time, medication orders and management, vital sign assessments/reviewing monitor data, ordering and reviewing lab tests, ordering and interpreting/reviewing x-rays and diagnostic studies, care of the patient and discussion of the patient with the admitting physicians. Sepsis Criteria SIRS Criteria (2 or more): Heart rate over 90, RR > 20 or PaCO2 < 32, WBC > 49802, < 4000 or > 10% bands Severe Sepsis (+one): Lactate >2 Physician Communication Physician Communication the patient's case was discussed with the resident on-call who did agree to admit the patient to the intensive care unit. A call was then placed out to the rotating field assembler on-call, Dr. Novak returned the phone call and I discussed the patient's case further with him at 10:18 PM. He plans on seeing the patient urgently for consultation due to her tenuous medical situation as she is septic and also has congestive heart failure. Diagnosis Primary Impression: Sepsis Qualified Code: A41.9 - Sepsis, due to unspecified organism Additional Impressions: CHF (congestive heart failure) Qualified Code: I50.20 - Systolic congestive heart failure, unspecified congestive heart failure chronicity Urinary tract infection Qualified Code: N39.0 - Urinary tract infection with hematuria, site unspecified Admitting Information Admitting Physician Requests: Admit Delfina Richmond MD Nov 06, 2016 20:12
[2016-11-06 20:20] VITALS: PULSE 101; RESP 36; O2SAT 100
--- NOTE | 2016-11-06 20:22 | RADRPT ---
EXAM DATE/TIME: 11/06/2016 20:16 [place] COMPARISON: No previous studies available for comparison. INDICATIONS : Shortness of breath. MEDICAL HISTORY : Stroke. Hepatitis C. Pneumonia, MRSA, C-diff SURGICAL HISTORY : Fusion, cervical. ENCOUNTER: Initial ACUITY: 1 day PAIN SCORE: 7/10 LOCATION: Bilateral chest FINDINGS: Bibasilar consolidation and small right, small to moderate left pleural effusions are present. I shawn georges failure is most likely. No pneumothorax seen. Mild cardiomegaly. Patient has had median sternotomy and aortic valve replacement. CONCLUSION: Bilateral consolidation and left greater than right effusions, some of which is likely on the basis o f failure. There is mild cardiomegaly. Mookie Scales MD on November 06, 2016 at 20:20 Board Certified Radiologist. This report was verified electronically.
[2016-11-06] MEDS ORDERED: FUROSEMIDE 40 MG/4 ML VIAL IV PUSH ONE (20:30)
[2016-11-06 20:39] VITALS: BP 147/72; PULSE 103; RESP 34; O2SAT 100
[2016-11-06 21:14] LABS: BLOOD GAS VENOUS BASE EXCESS -12.2 mmol/L (-2-2); BLOOD GAS VENOUS HCO3 14 mmol/L (22-26); BLOOD GAS VENOUS O2 CONTENT 6.9 Vol % (9.0-17.0); BLOOD GAS VENOUS O2 HGB SAT 41 % (70-76); BLOOD GAS VENOUS PCO2 39 mmHg (44-48); BLOOD GAS VENOUS PO2 33 mmHg (35-40); BLOOD GAS VENOUS pH 7.19 (7.360-7.400); CRITICAL VALUE YES; DRAW SITE RT FEMORAL; FIO2 100 %; OXYGEN DEVICE BIPAP; STAT YES; TEMP CORR TO 98.6; VENT SETTINGS IPAP 12/EPAP 5
[2016-11-06 21:23] LABS: BACTERIA, URINE MOD /hpf; BLOOD, URINE MOD (NEG); GLUCOSE,URINE NEG (NEG); HYALINE CAST, URINE 81 /lpf (RARE); KETONE, URINE NEG (NEG); MUCUS URINE MOD /lpf (OCC); NITRITE,URINE NEG (NEG); SQUAMOUS EPITHELIAL CELL URINE 11 /hpf (0-5); URINE COLOR DARK-YELLOW (YELLW/STRAW)
[2016-11-06 21:26] LABS: COMMENT (UR) CATH-CULTURE IND; CULTURE IF INDICATED CATH CULTURE IND
[2016-11-06 21:50] LABS: AUTOMATED NEUTROPHIL # 25.3 TH/MM3 (1.8-7.7); BASOPHIL % 0.1 % (0.0-2.0); HEMATOCRIT 36.6 % (35.0-46.0); LYMPH % 4.7 % (9.0-44.0); LYMPHOCYTE # 1.3 TH/MM3 (1.0-4.8); MEAN CELL VOLUME 98.1 FL (80.0-100.0); MEAN CORPUSCULAR HEMOGLOBIN 29.9 PG (27.0-34.0); MEAN CORPUSCULAR HGB CONC 30.5 % (32.0-36.0); MONO % 2.7 % (0.0-8.0); NEUT % 92.5 % (16.0-70.0); PLATELET COUNT 45 TH/MM3 (150-450); RED BLOOD COUNT 3.73 MIL/MM3 (4.00-5.30); RED CELL DISTRIBUTION WIDTH 19.6 % (11.6-17.2); WHITE BLOOD COUNT 27.4 TH/MM3 (4.0-11.0)
[2016-11-06 21:53] LABS: HEMO FLAGS AUTO DIFF
[2016-11-06 22:00] LABS: SODIUM (NA) 132 MEQ/L (136-145)
[2016-11-06 22:01] LABS: CHLORIDE 99 MEQ/L (98-107); POTASSIUM 6.2 MEQ/L (3.5-5.1)
[2016-11-06 22:03] LABS: MAGNESIUM 2.4 MG/DL (1.5-2.5)
[2016-11-06 22:04] LABS: ANION GAP 17 MEQ/L (5-15); BICARBONATE 16.3 MEQ/L (21.0-32.0)
[2016-11-06 22:05] LABS: GLOMERULAR FILTRATION RATE 57 ML/MIN (>89)
[2016-11-06 22:06] LABS: ALT (GPT) 124 U/L (10-53); AST (GOT) 202 U/L (15-37)
[2016-11-06 22:07] LABS: BLOOD UREA NITROGEN 44 MG/DL (7-18)
[2016-11-06 22:11] LABS: LACTIC ACID GHOST NOT REPORTABLE
[2016-11-06 22:12] LABS: ALKALINE PHOSPHATASE 169 U/L (45-117); BETA HCG QUANT LESS THAN 1 MIU/ML (0-5); CREATINE KINASE 65 U/L (26-192); TOTAL BILIRUBIN ADULT 2.8 MG/DL (0.2-1.0)
[2016-11-06 22:24] LABS: BANDS 17 % (0-6); CORRECTED NUCLEATED RBC 2 /100 WBC (0-0); NEUTROPHIL # MANUAL DIFF 26.6 TH/MM3 (1.8-7.7); POLYS (SEG NEUTROPHILS) 80 % (16-70); TOXIC GRANULATION 1+ (NORMAL); TOXIC VACUOLATION PRESENT (NONE SEEN); WBC DIFF SAMPLE 100
[2016-11-06 22:25] LABS: PLATELET ESTIMATE SMEAR LOW (NORMAL); PLATELET MORPHOLOGY NORMAL (NORMAL); SCAN/DIFF AUTO DIFF CONFIRMED
[2016-11-06] MEDS ORDERED: ONDANSETRON HCL 4 MG/2 ML VIAL IVP PRN (22:45)
[2016-11-06] MEDS: DOCUSATE SODIUM 100 MG CAP PO SCH (22:45)
[2016-11-06] MEDS ORDERED: ACETAMINOPHEN 325 MG TAB PO PRN (22:45)
[2016-11-06] MEDS ORDERED: NALOXONE HCL 0.4 MG/ML AMP IV PRN (22:45)
[2016-11-06] MEDS: SODIUM CHLORIDE 0.9% FLUSH 5 ML FLUSH FLUSH SCH (22:45)
[2016-11-06] MEDS: CARVEDILOL 3.125 MG TAB PO SCH (23:00)
[2016-11-06] MEDS ORDERED: ALBUTEROL SULFATE 90 MCG/ACT HFA 8 GM INHALER INH PRN (23:00)
[2016-11-06] MEDS ORDERED: DOCUSATE SODIUM 100 MG CAP PO PRN (23:00)
[2016-11-06 23:48] VITALS: BP 91/58; PULSE 87; RESP 20; O2SAT 100
[2016-11-07] VITALS (18 sets, daily range): BP systolic 84–104; BP diastolic 50–65; PULSE 72–80; RESP 17–31; TEMP 95.6–97.6; O2SAT 98–100
--- NOTE | 2016-11-07 00:54 | PD.CONS ---
[facility] Service Critical Care Medicine Consult Requested By [facility] Medicine Service Reason for Consult Systolic Heart Failure, Respiratory Failure Primary Care Physician Abe Gray MD History of Present Illness 26 y/o s/p MVR, AVR September 03 for endocarditis. She continued to use iv drugs until mid-October. Presents now with gross fluid overload and hypoxemic respiratory failure. 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 The patient is followed through the [facility] for her primary care. Arthritis: No Asthma: No Autoimmune Disease: No Anxiety: Yes Depression: No Heart Rhythm Problems: No Cancer: No Cardiovascular Problems: Yes (ENDOCARDITIS) High Cholesterol: No Chemotherapy: No Chest Pain: No Congestive Heart Failure: No COPD: No Cerebrovascular Accident: Yes Diabetes: No Diminished Hearing: No Endocrine: No Gastrointestinal Disorders: Yes GERD: No Genitourinary: No Headaches: Yes Hiatal Hernia: No Immune Disorder: No Kidney Stones: No Musculoskeletal: No Neurologic: Yes Psychiatric: Yes Reproductive: No Respiratory: No Migraines: No Pneumonia: Yes Radiation Therapy: No Renal Failure: No Seizures: No Sleep Apnea: No Thyroid Disease: No Ulcer: No : 0 Para: 0 Miscarriage: 0 : 0 Past Surgical History Abdominal Surgery: No AICD: No Arteriovenous Shunt: No Cardiac Surgery: Yes Ear Surgery: No Endocrine Surgery: No Eye Surgery: No Genitourinary Surgery: No Gynecologic Surgery: No Insulin Pump: No Joint Replacement: No Oral Surgery: No Pacemaker: No Thoracic Surgery: Yes Other Surgery: No Social History Alcohol Use: No Tobacco Use: No Substance Use: No (HX IV Quit Oct 2016) Allergies-Medications Allergies-Medications (Allergen,Severity, Reaction): Coded Allergies: *MDRO Multi-Drug Resistant Organism (Verified Adverse Reaction, Unknown, ) MRSA PCR screen positive - 10/18/2015 & 08/12/16 MRSA urine, blood, sputum and CSF- 10/2015 MDR PSAE in sputum 2015 Reported Meds & Prescriptions Reported Meds & Active Scripts Active Warfarin 3 Mg Tab 3 Mg PO DAILY Take on Sat, Sat, Sat at 4pm Coumadin (Warfarin) 2.5 Mg Tab 2.5 Mg PO DAILY@16 Take Sat, Saturday, , Saturday at 4pm keep INR 2.0-2.5, hold INR>3.5 Hm One Daily/Iron (Multiple Vitamins W/ Iron) 1 Tab Tab 1 Tab PO DAILY Restoril (Temazepam) 7.5 Mg Cap 7.5 Mg PO HS PRN Hydrocodone-Acetaminophen 5-325 mg Tab 1 Tab PO Q8HR PRN Ferrous Sulfate 325 Mg Tab 325 Mg PO BID Lasix (Furosemide) 40 Mg Tab 40 Mg PO DAILY Ramipril 2.5 Mg Cap 2.5 Mg PO DAILY Pantoprazole (Pantoprazole Sodium) 40 Mg Tab 40 Mg PO DAILY@06 Celexa (Citalopram Hydrobromide) 40 Mg Tab 40 Mg PO DAILY Coreg (Carvedilol) 3.125 Mg Tab 3.125 Mg PO Q12HR [Aspirin Chew] 81 MG Chew 81 Mg PO DAILY Dok (Docusate Sodium) 100 Mg Cap 100 Mg PO BID PRN Ventolin Hfa 18 GM Inh (Albuterol Sulfate) 90 Mcg/Act Aer 2 Puff INH Q4-6H PRN Tylenol (Acetaminophen) 325 Mg Cap 650 Mg PO Q6H PRN Physical Exam Vital Signs Vital Signs Date Time Temp Pulse Resp B/P Pulse Ox O2 Delivery O2 Flow Rate FiO2 11/07/16 00:07 100 60 11/06/16 23:48 87 20 91/58 100 BiPAP 100 11/06/16 20:39 103 34 147/72 100 BiPAP 100 11/06/16 20:27 103 36 100 BiPAP 11/06/16 20:20 100 BiPAP 11/06/16 20:20 101 36 100 BiPAP 11/06/16 20:01 97.4 106 44 134/65 11/06/16 19:40 100 100 Physical Exam PE: P 87, BP 91/58, R 35, T 97.2, Sats 88% Head: Edematous. Neck: Supple, airway widely patent. Lungs: Diffuse crackles. Tachypnea. Heart: RRR, 3/6 systolic murmur LSB -> apex. + JVD. Abdomen: Soft, nontender, moderately distended. No guarding. Extremities: 2+ tense edema left lower leg. trace edema right leg. 1+ edema both arms. Neuro: Left side paresis. Oriented to place, lethargic. Laboratory Laboratory Tests Test 11/06/16 11/06/16 11/06/16 11/06/16 19:47 20:45 20:55 21:16 Erythrocyte Sedimentation Rate 2 Lactic Acid Level 10.0 B-Type Natriuretic Peptide 2030 Urine Color DARK-YELLOW Urine Turbidity CLOUDY Urine pH 6.0 Urine Specific [place] 1.024 Urine Protein 300 Urine Glucose (UA) NEG Urine Ketones NEG Urine Occult Blood MOD Urine Nitrite NEG Urine Bilirubin SMALL Urine Urobilinogen 4.0 Urine Leukocyte Esterase NEG Urine RBC 70 Urine WBC 24 Urine Squamous Epithelial 11 Cells Urine Amorphous Sediment MOD Urine Bacteria MOD Urine Hyaline Casts 81 Urine Mucus MOD Microscopic Urinalysis Comment CATH-CULTURE IND Blood Gas Puncture Site RT FEMORAL Blood Gas Patient Temperature 98.6 Venous Blood pH 7.19 Venous Blood Partial Pressure 39 CO2 Venous Blood Partial Pressure 33 O2 Venous Blood HCO3 14 Venous Blood Oxygen Saturation 41 Venous Blood Oxygen Content 6.9 Venous Blood Base Excess -12.2 Oxygen Delivery Device BIPAP Blood Gas Ventilator Setting IPAP 12/EPAP 5 Blood Gas Inspired Oxygen 100 White Blood Count 27.4 Red Blood Count 3.73 Hemoglobin 11.2 Hematocrit 36.6 Mean Corpuscular Volume 98.1 Mean Corpuscular Hemoglobin 29.9 Mean Corpuscular Hemoglobin 30.5 Concent Red Cell Distribution Width 19.6 Platelet Count 45 Mean Platelet Volume 10.3 Neutrophils (%) (Auto) 92.5 Lymphocytes (%) (Auto) 4.7 Monocytes (%) (Auto) 2.7 Eosinophils (%) (Auto) 0.0 Basophils (%) (Auto) 0.1 Neutrophils # (Auto) 25.3 Lymphocytes # (Auto) 1.3 Monocytes # (Auto) 0.7 Eosinophils # (Auto) 0.0 Basophils # (Auto) 0.0 CBC Comment AUTO DIFF Differential Total Cells 100 Counted Neutrophils % (Manual) 80 Band Neutrophils % 17 Lymphocytes % 1 Monocytes % 2 Neutrophils # (Manual) 26.6 Nucleated Red Blood Cells 2 Differential Comment AUTO DIFF CONFIRMED Toxic Granulation 1+ Toxic Vacuolation PRESENT Platelet Estimate LOW Platelet Morphology Comment NORMAL Sodium Level 132 Potassium Level 6.2 Chloride Level 99 Carbon Dioxide Level 16.3 Anion Gap 17 Blood Urea Nitrogen 44 Creatinine 1.14 Estimat Glomerular Filtration 57 Rate Random Glucose 67 Calcium Level 7.6 Magnesium Level 2.4 Total Bilirubin 2.8 Aspartate Amino Transf 202 (AST/SGOT) Alanine Aminotransferase 124 (ALT/SGPT) Alkaline Phosphatase 169 Total Creatine Kinase 65 Troponin I 2.86 Total Protein 6.2 Albumin 2.3 Lipase 105 Human Chorionic Gonadotropin, LESS THAN 1 Quant Test 11/06/16 23:00 Lactic Acid Level 6.0 Date/Time Procedure Status Source Growth 11/06/16 20:45 Urine Culture Received Urine Catheterized Urine Pending Result Diagram: 11/06/16211511/06/162115 Assessment and Plan Problem List: (1) Acute hypoxemic respiratory failure ICD Code: J96.01 Status: Acute (2) Severe sepsis ICD Code: A41.9 Status: Resolved Assessment and Plan Plan: 1. BiPAP 06/06. 2. Dobutamine while hypotensive and overloaded. 3. Lasix 80 X 1 now. 4. Consider lasix dripp. 5. Continue anticoagulation 6. Pepcid. 7. Follow lactic acid, ScVO2 8. Insertion central line, follow CVP. 9. DNP. Overall impression: This woman is critically ill with systolic heart failure and fluid overload. Suspect she is septic. Peripheral perfusion is poor and respiratory function is marginal at best. Critical care 40 mins aside from procedures. Darrion Novak MD Nov 07, 2016 00:54
[2016-11-07] MEDS ORDERED: FUROSEMIDE 100 MG/10 ML VIAL IV PUSH ONE (01:45)
[2016-11-07] MEDS ORDERED: DOBUTamine PREMIX DRIP 250 ML ONE (02:00)
[2016-11-07] MEDS ORDERED: SODIUM BICARBONATE 8.4% INJ 50 MEQ/50 ML SYR IV PUSH ONE (02:00)
[2016-11-07] MEDS: PANTOPRAZOLE SODIUM 40 MG VIAL IV PUSH SCH (02:24)
--- NOTE | 2016-11-07 02:24 | RADRPT ---
EXAM DATE/TIME: 11/07/2016 02:03 [place] COMPARISON: CHEST SINGLE AP, November 06, 2016, 20:16. INDICATIONS : Central line placement. MEDICAL HISTORY : None. SURGICAL HISTORY : None. ENCOUNTER: Subsequent ACUITY: 2 days PAIN SCORE: Non-responsive. LOCATION: Bilateral chest FINDINGS: A single view of the chest demonstrates worsening bilateral effusions. Interstitial haziness also sug gest some degree of vascular congestion or volume overload. Heart size is prominent with a valvular p rostheses. Median sternotomy wires are intact. Right subclavian central venous catheter with the tip projecting over the central venous system. No pneumothorax. CONCLUSION: 1. Right subclavian central venous catheter with the tip projecting over the central venous system. N o pneumothorax. 2. Worsening bibasilar effusions with atelectasis. 3. Cardiomegaly with interstitial prominence suggesting some degree of vascular congestion or volume overload. 4. Valvular prostheses. Milan Aguilar MD on November 07, 2016 at 2:21 Board Certified Radiologist. This report was verified electronically.
[2016-11-07] MEDS: SODIUM CHLOR 0.9% 1000 ML INJ 1,000 ML IV SCH ×2 (02:25→07:42)
[2016-11-07] MEDS: PIPERACIL-TAZO 3.375 GM PREMIX 50 ML IV SCH ×4 (02:25→20:51)
--- NOTE | 2016-11-07 02:25 | PD.PROCEDR ---
Procedure Note Procedure DX: Severe Sepsis (A41.9) OP: Insertion Central Venous Line ([id number]) Procedure: Right chest prepped and draped. Right subclavian vein cannulated and wire easily advanced. Catheter passed over wire to 18 cm. Lumens aspirated and flushed. Dressing applied. CXR with line in good position, suitable for use. Darrion Novak MD Nov 07, 2016 02:25
[2016-11-07] MEDS: DOBUTamine 250 MG/D5W 250 ML PREMIX DRIP IV SCH ×3 (02:26→20:53)
--- NOTE | 2016-11-07 02:26 | HHI.HP ---
HPI Service Family Medicine Primary Care Physician Abe Gray MD Admission Diagnosis Sepsis, CHF exacerbation, Hypoxemia on RA Diagnoses: International Travel<30 Days: No Contact w/Intl Traveler<30days: No Known Affected Area: No History of Present Illness 26 year-old female with history of MRSA endocarditis, secondary to IVDU, s/p mitral and aortic valve repair, with CHF (EF 25-30%) presents via EMS with retrosternal chest pain and periumbilical pain x2 hours. Pt's requirement of BIPAP at time of interview limited history taking. Reports sudden onset of chest and abdominal pain earlier this evening while resting on couch prompting mother to call EMS. Chest pain is at inferior sternum, sharp, non-radiating, and unchanged in severity since admission to ED. Abdominal pain bothers her the most. Reports uriel-umbilical non-radiating pain that started same time as chest pain. Also, swollen abdomen several days in duration, and chills and sweating earlier this evening. Denies confusion, headache, blurry vision, or vomiting. Denies IVDU since heart valve replacement 09/2016. PCP is Dr. Travis Gray. Review of Systems ROS Limitations: Clinical Condition Constitutional: COMPLAINS OF: Chills, DENIES: Fever Eyes: DENIES: Blurred vision Respiratory: COMPLAINS OF: Shortness of breath Cardiovascular: COMPLAINS OF: Chest pain, DENIES: Palpitations, Syncope Gastrointestinal: COMPLAINS OF: Abdominal pain Musculoskeletal: COMPLAINS OF: Back pain (chronic) Integumentary: DENIES: Rash Neurologic: COMPLAINS OF: Localized weakness (L-sided, chronic), DENIES: Headache Past Family Social History Past Medical History IVDU Infective endocarditis (Spring 2015) Bacterial meningitis (Spring 2015) Subarachnoid hemorrhage (Spring 2015) Hx CVA with residual L-sided weakness Hepatitis C- never treated Hx of DVT, bilateral PE, anticoagulated on Coumadin Discitis and chronic back pain s/p MVI 03/2009 Past Surgical History Drainage of pericardial effusion R parietal brain biopsy (11/2015) C-spine decompression and stabilization with Dr. Cope (07/09/16) AVR/MVR (09/2016) Reported Medications Warfarin 3 Mg PO Mon, Wed, Fri (4pm) Warfarin 2.5mg PO daily Sun, Tues, Thurs, Sat (4pm) Goal INR 2.0-2.5, hold INR>3.5 Multiple Vitamins W/ Iron 1 Tab PO DAILY Restoril (Temazepam) 7.5 Mg PO HS PRN Hydrocodone-Acetaminophen 5-325 mg 1 Tab PO q8h PRN severe pain Ferrous Sulfate 325mg PO BID Lasix (Furosemide) 40 Mg PO DAILY Ramipril 2.5 Mg PO DAILY Pantoprazole 40 Mg PO DAILY Celexa (Citalopram Hydrobromide) 40 Mg PO DAILY Coreg (Carvedilol) 3.125 Mg Tab PO BID [Aspirin Chew 81 MG PO DAILY Docusate 100 Mg PO BID PRN constipation Ventolin Hfa 18 GM Inh 2 Puff INH Q4-6H PRN SOB Tylenol 650 Mg PO q6h PRN moderate pain Allergies: Coded Allergies: *MDRO Multi-Drug Resistant Organism (Verified Adverse Reaction, Unknown, ) MRSA PCR screen positive - 10/18/2015 & 08/12/16 MRSA urine, blood, sputum and CSF- 10/2015 MDR PSAE in sputum 2015 Family History Mother, alive - no known medical issues Father, alive - Stroke at age 58, HTN Social History Tobacco: 1/2 ppd since 2008 ETOH: 1 glass wine per month Drugs: Denies since valve replacement 09/2016 Education: Some college, cosmetology school Lives in [place] with mother. Physical Exam Vital Signs Vital Signs Date Time Temp Pulse Resp B/P Pulse Ox O2 Delivery O2 Flow Rate FiO2 11/07/16 00:07 100 60 11/06/16 23:48 87 20 91/58 100 BiPAP 100 11/06/16 20:39 103 34 147/72 100 BiPAP 100 11/06/16 20:27 103 36 100 BiPAP 11/06/16 20:20 100 BiPAP 11/06/16 20:20 101 36 100 BiPAP 11/06/16 20:01 97.4 106 44 134/65 11/06/16 19:40 100 100 Physical Exam VITALS: Pulse 92. B/P 100/80. GEN: Adult female in moderately severe respiratory distress, on BiPAP. SKIN: Warm and dry, with exception of left lower extremity, which is cold. HEENT: PERRL. EOMI. No scleral icterus. No nystagmus. BIPAP in place over mouth. NECK: Soft, no LAD. CV: RRR. Difficult to evaluate for presence of murmurs or rub over BIPAP. RESP: Anterior lung exam: breath sounds equal bilaterally. No wheezing. Referred coarse expiratory sounds. Patient speaks in 1-2 words at a time with significant effort. Settings: PEEP 5. FIO2 100% Vent Breath Rate: 29. Pt breathing above vent rate. Volume 600. GI: Abdomen diffusely tender to deep palpation in all four quadrants with grimacing and groaning to palpation. Tense abdomen. +BS in all four quadrants. MSK:Left upper extremity: reduced tone compared to R. Lying limp on bed. Able to move against gravity. Sensation intact. Pt reports undiminished vs RUE. Left lower extremity: held in external rotation at hip. Unable to move against gravity. Sensation intact. Pt reports undiminshed vs LRE. LLE cold to touch. Wiggles toes bilaterally. No calf tenderness bilaterally. 2+ peripheral edema NEURO: Awake and alert. Appears oriented. No focal deficits appreciated in visual field or R-sided motor or sensation. L-sided deficits at above. Laboratory Laboratory Tests Test 11/06/16 11/06/16 11/06/16 11/06/16 19:47 20:45 20:55 21:16 Erythrocyte Sedimentation Rate 2 Lactic Acid Level 10.0 B-Type Natriuretic Peptide 2030 Urine Color DARK-YELLOW Urine Turbidity CLOUDY Urine pH 6.0 Urine Specific [place] 1.024 Urine Protein 300 Urine Glucose (UA) NEG Urine Ketones NEG Urine Occult Blood MOD Urine Nitrite NEG Urine Bilirubin SMALL Urine Urobilinogen 4.0 Urine Leukocyte Esterase NEG Urine RBC 70 Urine WBC 24 Urine Squamous Epithelial 11 Cells Urine Amorphous Sediment MOD Urine Bacteria MOD Urine Hyaline Casts 81 Urine Mucus MOD Microscopic Urinalysis Comment CATH-CULTURE IND Blood Gas Puncture Site RT FEMORAL Blood Gas Patient Temperature 98.6 Venous Blood pH 7.19 Venous Blood Partial Pressure 39 CO2 Venous Blood Partial Pressure 33 O2 Venous Blood HCO3 14 Venous Blood Oxygen Saturation 41 Venous Blood Oxygen Content 6.9 Venous Blood Base Excess -12.2 Oxygen Delivery Device BIPAP Blood Gas Ventilator Setting IPAP 12/EPAP 5 Blood Gas Inspired Oxygen 100 White Blood Count 27.4 Red Blood Count 3.73 Hemoglobin 11.2 Hematocrit 36.6 Mean Corpuscular Volume 98.1 Mean Corpuscular Hemoglobin 29.9 Mean Corpuscular Hemoglobin 30.5 Concent Red Cell Distribution Width 19.6 Platelet Count 45 Mean Platelet Volume 10.3 Neutrophils (%) (Auto) 92.5 Lymphocytes (%) (Auto) 4.7 Monocytes (%) (Auto) 2.7 Eosinophils (%) (Auto) 0.0 Basophils (%) (Auto) 0.1 Neutrophils # (Auto) 25.3 Lymphocytes # (Auto) 1.3 Monocytes # (Auto) 0.7 Eosinophils # (Auto) 0.0 Basophils # (Auto) 0.0 CBC Comment AUTO DIFF Differential Total Cells 100 Counted Neutrophils % (Manual) 80 Band Neutrophils % 17 Lymphocytes % 1 Monocytes % 2 Neutrophils # (Manual) 26.6 Nucleated Red Blood Cells 2 Differential Comment AUTO DIFF CONFIRMED Toxic Granulation 1+ Toxic Vacuolation PRESENT Platelet Estimate LOW Platelet Morphology Comment NORMAL Sodium Level 132 Potassium Level 6.2 Chloride Level 99 Carbon Dioxide Level 16.3 Anion Gap 17 Blood Urea Nitrogen 44 Creatinine 1.14 Estimat Glomerular Filtration 57 Rate Random Glucose 67 Calcium Level 7.6 Magnesium Level 2.4 Total Bilirubin 2.8 Aspartate Amino Transf 202 (AST/SGOT) Alanine Aminotransferase 124 (ALT/SGPT) Alkaline Phosphatase 169 Total Creatine Kinase 65 Troponin I 2.86 Total Protein 6.2 Albumin 2.3 Lipase 105 Human Chorionic Gonadotropin, LESS THAN 1 Quant Test 11/06/16 23:00 Lactic Acid Level 6.0 Date/Time Procedure Status Source Growth 11/07/16 01:30 Aerobic Blood Culture Received Blood Line Pending 11/07/16 01:30 Anaerobic Blood Culture Received Blood Line Pending 11/06/16 20:45 Urine Culture Received Urine Catheterized Urine Pending Result Diagram: 11/06/16211511/06/166 Imaging Last Impressions Chest X-Ray 11/07/16 0000 Signed Impressions: Service Date/Time: Monday, November 07, 2016 02:03 - CONCLUSION: 1. Right subclavian central venous catheter with the tip projecting over the central venous system. No pneumothorax. 2. Worsening bibasilar effusions with atelectasis. 3. Cardiomegaly with interstitial prominence suggesting some degree of vascular congestion or volume overload. 4. Valvular prostheses. Milan Aguilar MD Assessment and Plan Assessment and Plan 26 year-old female with history of IVDU and endocarditis, s/p valve repair, hospitalized 11/06/16 for septic shock. Code Status Full Discussed Condition With SDW: Dr. Sebastian Problem List: (1) Septic shock Status: Acute Plan: Meets SIRS criteria with tachycardia (105), tachypnea (44), and leukocytosis (27.4k). Patient history suspicious for infectious source Meets severe sepsis with signs of organ dysfunctions (acute respiratory failure , platelets <100,000, and lactate 2+) Meets septic shock with lactate greater than four (6.0) after 30mL/kg fluid bolus in ED Differential for source: cardiac (endocarditis) vs respiratory (PNA vs bronchitis vs PE) vs urinary (UTI) vs abdominal (hepatitis vs SBO) vs metabolic (IVDU vs MRSA) vs other -Admit to inpatient under Dr. Pires/FPTS team -Consult -Consult [facility] Mixer: Dr Novak aware of pt, appreciate assistance with management -Consult Cardiology: appreciate assistance with management pt with hx endocarditis, s/p recent valve replacement, with septic shock and elevated troponins -Consult Infectious Disease: re: medication titrations in light of antibiogram, recent hospitalization and surgery, and hx MRSA -Consult Case management- anticipate assistance with placement and discharge +/- community resources -PT/OT consulted -Sepsis Protocol -Fluids: s/p 2.1L NS in ED. Continue fluid resuscitation with MIVF @ 100mL/hr -Antibiotics: received Vanc/Zosyn X1 in ED. Continue renally-dosed Zosyn 3.375 IV q6h SOMMER. Continue Vancomycin 1g IV daily + Vanc pharmacy consult -Lactic acid protocol. 10.0 on admission, continue to trend q4h until wnl, will repeat in AM regardless. Trending down 10 -> 6.0. -Insert Carter, monitor I/Os, vitals q4h, oxygen support for O2 saturations 89 %+, NPO in case of surgery or possible intubation, type and screen pending -Laboratory workup -Fluid overloaded with BNP 2030. S/p Lasix 40mg IV x1 in ED. -CBC: leukocytosis to 27.4k. Thrombocytopenia to 45k. Left-shift with 17 bands, I/T ratio 0.17. Very mild anemia- H/H 11/36, MCV 98. -Electrolytes- hyponatremia (132), hyperkalemia (6.2), low bicarb (16) -VBG- pH 7.2, pCO2 39, HCO3 14, suggesting metabolic acidosis. Anion gap elevated at 17 -UDS pending -Blood cultures (11/06) x2 pending -CXR (11/06) bilateral consolidation, L > R, with mild cardiomegaly -U/A (3) contaminated sample with 11 squamous cells. Will repeat u/a with cathed sample to rule out UTI but covered per abx above -Acute kidney injury with Bun/Cr 44/1.1, GFR 57, from baseline Cr 0.75-1.0 -b-HCG negative -ACS rule out -Troponin elevated to 2.86 on admission (9pm) -EKG difficult to interpret secondary to significant artifact. 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 S/p aortic and mitral valve repair 09/2016. ECHO 09/2016 with EF 25-30% with pericardial effusion w/ o hemodynamic compromise. -Continue aspirin 81mg PO daily -Continue Ramipril 2.5mg PO daily -Continue Carvedilol 3.125mg BID -PT/INR and PTT pending. Goal INR 2.0-2.5, hold for INR 3.5+ -Continue home Coumadin 3.0mg Mon, Wed, Fri -Continue home Coumadin 2.5mg Sun, Tues, Thurs, Sat -Hold home Lasix 40mg PO daily -S/p Lasix 40mg IV x1 in ED -Add Lasix 40mg IV daily (3) Nutrition, metabolism, and development symptoms Status: Acute Plan: Fluids: MIVF @ 100mL/hr Electrolytes: presented with hyponatremia, hypokalemia. Replete per ICU protocol Nutrition: NPO at present DVT prophylaxis: SCDs + continue home Coumadin at present, INR pending, consider adjusting as indicated per INR GI prophylaxis: Continue home Protonix 40mg IV daily Chronic medical conditions: Asthma (?): Continue home Albuterol 2 puff q4h PRN Anxiety: Continue home Celexa 40mg PO daily Anemia: Continue home ferrous sulfate 325mg BID Insomnia: Continue home restoril 7.5mg PO HS PRN (4) Hx of cerebral embolic infarction Status: Chronic (5) Acute respiratory failure Status: Acute (6) Anemia Status: Chronic (7) Insomnia Status: Chronic (8) Elevated LFTs Status: Acute (9) Hyponatremia Status: Acute (10) Thrombocytopenia Status: Acute (11) Acute kidney injury Status: Acute (12) Elevated troponin Status: Acute (13) history of IV drug abuse Status: Chronic (14) Lactic acidosis Status: Acute (15) Hyperkalemia Status: Acute (16) Anxiety Status: Acute (17) Left hemiparesis Status: Chronic (18) Hepatitis C Status: Chronic Physician Certification 2 Midnight Certification Type: Admission for Inpatient Services Order for Inpatient Services The services are ordered in accordance with Medicare regulations or non- Medicare payer requirements, as applicable. In the case of services not specified as inpatient-only, they are appropriately provided as inpatient services in accordance with the 2-midnight benchmark. Estimated LOS (days): 5 days is the estimated time the patient will need to remain in the hospital, assuming treatment plan goals are met and no additional complications. Post-Hospital Plan: Not yet determined Problem Qualifiers (1) Acute respiratory failure: Qualified Code: J96.01 - Acute respiratory failure with hypoxia (2) Insomnia: Qualified Code: G47.00 - Insomnia, unspecified type (3) Hepatitis C: Qualified Code: B18.2 - Chronic hepatitis C without hepatic coma Faiza Rodriguez MD R1 Nov 07, 2016 02:26
[2016-11-07 03:06] LABS: BLOOD GAS VENOUS BASE EXCESS -0.6 mmol/L (-2-2); BLOOD GAS VENOUS HCO3 24 mmol/L (22-26); BLOOD GAS VENOUS O2 HGB SAT 68 % (70-76); BLOOD GAS VENOUS PCO2 39 mmHg (44-48); BLOOD GAS VENOUS PO2 41 mmHg (35-40); TEMP CORR TO 98.6
[2016-11-07 03:07] LABS: CRITICAL VALUE NO; DRAW SITE CENTRAL LINE; FIO2 60 %; STAT NO
[2016-11-07 03:08] LABS: OXYGEN DEVICE BiPAP
[2016-11-07] MEDS ORDERED: Vancomycin Consult Pharmacy 1 EA OTHER SCH (03:45)
[2016-11-07 04:10] LABS: BASOPHIL # 0.1 TH/MM3 (0-0.2); BASOPHIL % 0.4 % (0.0-2.0); HEMATOCRIT 33.9 % (35.0-46.0); LYMPHOCYTE # 1.3 TH/MM3 (1.0-4.8); MEAN CELL VOLUME 94.1 FL (80.0-100.0); MEAN CORPUSCULAR HEMOGLOBIN 29.5 PG (27.0-34.0); MEAN CORPUSCULAR HGB CONC 31.3 % (32.0-36.0); MONO % 2.1 % (0.0-8.0); NEUT % 92.5 % (16.0-70.0); PLATELET COUNT 36 TH/MM3 (150-450); RED CELL DISTRIBUTION WIDTH 19.8 % (11.6-17.2)
[2016-11-07 04:17] LABS: BLOOD, URINE TRACE (NEG); COMMENT (UR) CATH-CULT NOT IND; CULTURE IF INDICATED CATH CULTURE NOT IND; GLUCOSE,URINE NEG (NEG); KETONE, URINE NEG (NEG); MUCUS URINE FEW /lpf (OCC); NITRITE,URINE NEG (NEG); URINE COLOR COLORLESS (YELLW/STRAW)
[2016-11-07 04:33] LABS: HEMO FLAGS AUTO DIFF
[2016-11-07 04:44] LABS: ALKALINE PHOSPHATASE 148 U/L (45-117); ALT (GPT) 168 U/L (10-53); ANION GAP 10 MEQ/L (5-15); AST (GOT) 303 U/L (15-37); BICARBONATE 25.7 MEQ/L (21.0-32.0); BLOOD UREA NITROGEN 43 MG/DL (7-18); CHLORIDE 101 MEQ/L (98-107); GLOMERULAR FILTRATION RATE 80 ML/MIN (>89); POTASSIUM 3.8 MEQ/L (3.5-5.1); SODIUM (NA) 137 MEQ/L (136-145); TOTAL BILIRUBIN ADULT 3.2 MG/DL (0.2-1.0)
[2016-11-07 04:49] LABS: CREATINE KINASE 58 U/L (26-192)
[2016-11-07 05:09] LABS: AMPHETAMINE, URINE NEG (NEG); BARBITURATES, URINE NEG (NEG); COCAINE, URINE NEG (NEG)
[2016-11-07 06:37] LABS: APTT (PATIENT) 51.1 SEC (24.3-30.1); PROTHROMBIN TIME - PATIENT 107.1 SEC (9.8-11.6)
[2016-11-07 06:42] LABS: INTERNATIONAL NORMALIZED RATIO 8.8 RATIO
[2016-11-07 07:22] LABS: BANDS 21 % (0-6); NEUTROPHIL # MANUAL DIFF 24.4 TH/MM3 (1.8-7.7); OVALOCYTES 1+ (NORMAL); PLATELET ESTIMATE SMEAR LOW (NORMAL); PLATELET MORPHOLOGY NORMAL (NORMAL); POLYS (SEG NEUTROPHILS) 73 % (16-70); SCAN/DIFF FINAL DIFF MANUAL; WBC DIFF SAMPLE 100
[2016-11-07] MEDS: CARVEDILOL 3.125 MG TAB PO SCH ×2 (07:29→20:52)
[2016-11-07] MEDS: RAMIPRIL 2.5 MG CAP PO SCH (07:33)
[2016-11-07] MEDS: SODIUM CHLORIDE 0.9% FLUSH 5 ML FLUSH FLUSH SCH ×2 (07:42→20:51)
[2016-11-07] MEDS: ASPIRIN 81 MG CHEW TAB PO SCH (09:00)
[2016-11-07] MEDS: FERROUS SULFATE 325 MG (65 MG ELEMENTAL IRON) TAB PO SCH ×2 (09:00→20:52)
[2016-11-07] MEDS ORDERED: FUROSEMIDE 40 MG/4 ML VIAL IV PUSH SCH (09:00)
[2016-11-07] MEDS: CITALOPRAM HYDROBROMIDE 40 MG TAB PO SCH (09:00)
--- NOTE | 2016-11-07 09:10 | HHI.HP ---
[facility] Service Family Medicine Primary Care Physician Abe Gray MD Admission Diagnosis Sepsis, CHF exacerbation, Hypoxemia on RA Diagnoses: (1) Septic shock Diagnosis: Principal (2) Chronic systolic (congestive) heart failure Diagnosis: Principal (3) Nutrition, metabolism, and development symptoms Diagnosis: Principal (4) Hx of cerebral embolic infarction Diagnosis: Principal (5) Acute respiratory failure Diagnosis: Principal (6) Anemia Diagnosis: Principal (7) Insomnia Diagnosis: Principal (8) Elevated LFTs Diagnosis: Principal (9) Hyponatremia Diagnosis: Principal (10) Thrombocytopenia Diagnosis: Principal (11) Acute kidney injury Diagnosis: Principal (12) Elevated troponin Diagnosis: Principal (13) history of IV drug abuse Diagnosis: Principal (14) Lactic acidosis Diagnosis: Principal (15) Hyperkalemia Diagnosis: Principal (16) Anxiety Diagnosis: Principal (17) Left hemiparesis Diagnosis: Principal (18) Hepatitis C Diagnosis: Principal International Travel<30 Days: No Contact w/Intl Traveler<30days: No Known Affected Area: No History of Present Illness Ewa Barrios is a 26 year-old female with history of MRSA endocarditis , secondary to IVDU, s/p mitral and aortic valve repair x 2, with CHF (EF 25-30% ) presents via EMS with retrosternal chest pain and periumbilical pain x2 hours. Pt's requirement of BIPAP at time of interview limited history taking. Reports sudden onset of chest and abdominal pain earlier in the evening while resting on couch prompting mother to call EMS. Chest pain is at inferior sternum, sharp, non-radiating, and unchanged in severity since admission to ED. Abdominal pain bothered her the most. She feels better this am. Reports uriel- umbilical non-radiating pain that started same time as chest pain. Also, swollen abdomen several days in duration, and chills and sweating earlier this evening. Denies confusion, headache, blurry vision, or vomiting. Denies IVDU since heart valve replacement 09/2016. PCP is Dr. Travis Gray. She had a long history of multiple episodes of endocarditis and 2 valve replacement. She suffered with a CVA and was extremely ill. She had an extended stay in rehab and was doing well enough to go home. She has a history of iv drug abuse which necessitated the two time valve replacement. However, it is unclear that she has used any iv drugs recently and has denied that. Per report , though it's not final, there was a vegetation on her aortic valve now. She is extremely ill requiring pressors and on bipap right now but responded to her treatment here. She wishes to be a full code. Review of Systems ROS Limitations: Clinical Condition, Other Constitutional: COMPLAINS OF: Fatigue, Fever, Weight gain, Chills Respiratory: COMPLAINS OF: Shortness of breath Cardiovascular: COMPLAINS OF: Chest pain, Palpitations Gastrointestinal: COMPLAINS OF: Abdominal pain Musculoskeletal: COMPLAINS OF: Joint pain, Joint Swelling Neurologic: COMPLAINS OF: Localized weakness, Poor Balance, DENIES: Speech Problems Psychiatric: DENIES: Agitation Other ROS Limitations: Clinical Condition Constitutional: COMPLAINS OF: Chills, DENIES: Fever Eyes: DENIES: Blurred vision Respiratory: COMPLAINS OF: Shortness of breath Cardiovascular: COMPLAINS OF: Chest pain, DENIES: Palpitations, Syncope Gastrointestinal: COMPLAINS OF: Abdominal pain Musculoskeletal: COMPLAINS OF: Back pain (chronic) Integumentary: DENIES: Rash Neurologic: COMPLAINS OF: Localized weakness (L-sided, chronic), DENIES: Headache Past Family Social History Past Medical History IVDU Infective endocarditis (Spring 2015) Bacterial meningitis (Spring 2015) Subarachnoid hemorrhage (Spring 2015) Hx CVA with residual L-sided weakness Hepatitis C- never treated Hx of DVT, bilateral PE, anticoagulated on Coumadin Discitis and chronic back pain s/p MVI 03/2009 Past Surgical History Drainage of pericardial effusion R parietal brain biopsy (11/2015) C-spine decompression and stabilization with Dr. Cope (07/09/16) AVR/MVR (09/2016) Allergies: Coded Allergies: *MDRO Multi-Drug Resistant Organism (Verified Adverse Reaction, Unknown, ) MRSA PCR screen POSITIVE- 10/18/2015 & 08/12/16 MRSA (urine, blood, 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 in sputum 2015 Family History Mother, alive - no known medical issues Father, alive - Stroke at age 58, HTN Social History Tobacco: 1/2 ppd since 2008 ETOH: 1 glass wine per month Drugs: Denies since valve replacement 09/2016 Education: Some college, cosmetology school Lives in [place] with mother. Physical Exam Vital Signs Vital Signs Date Time Temp Pulse Resp B/P Pulse Ox O2 Delivery O2 Flow Rate FiO2 11/07/16 07:30 100 Bi-Pap 40 11/07/16 06:00 78 11/07/16 04:00 75 11/07/16 04:00 96.4 75 20 92/54 100 11/07/16 03:11 100 Bi-Pap 40 11/07/16 03:00 100 40 11/07/16 01:00 100 60 11/07/16 01:00 100 Bi-Pap 60 11/07/16 01:00 97.6 80 31 94/58 100 11/07/16 01:00 80 11/07/16 00:07 100 60 11/06/16 23:48 87 20 91/58 100 BiPAP 100 11/06/16 20:39 103 34 147/72 100 BiPAP 100 11/06/16 20:27 103 36 100 BiPAP 11/06/16 20:20 100 BiPAP 11/06/16 20:20 101 36 100 BiPAP 11/06/16 20:01 97.4 106 44 134/65 11/06/16 19:40 100 100 Physical Exam GEN: Adult female in moderately severe respiratory distress, on BiPAP. SKIN: Warm and dry, with exception of left lower extremity, which is cold. HEENT: PERRL. EOMI. No scleral icterus. No nystagmus. BIPAP in place over mouth. NECK: Soft, no LAD. CV: RRR. Difficult to evaluate for presence of murmurs or rub over BIPAP. RESP: Anterior lung exam: breath sounds equal bilaterally. No wheezing. Referred coarse expiratory sounds. Patient speaks in 1-2 words at a time with significant effort. GI: Abdomen not diffusely tender today +BS in all four quadrants. MSK:Left upper extremity: reduced tone compared to R. Lying limp on bed. Able to move against gravity. Sensation intact. Pt reports undiminished vs RUE. Left lower extremity: held in external rotation at hip. Unable to move against gravity. Sensation intact. Pt reports undiminshed vs LRE. LLE cold to touch. Wiggles toes bilaterally. No calf tenderness bilaterally. 2+ peripheral edema NEURO: Awake and alert. Appears oriented. No focal deficits appreciated in visual field or R-sided motor or sensation. L-sided deficits at above. Laboratory Laboratory Tests Test 11/06/16 11/06/16 11/06/16 11/06/16 19:47 20:45 20:55 21:16 Erythrocyte Sedimentation Rate 2 Lactic Acid Level 10.0 B-Type Natriuretic Peptide 2030 Urine Color DARK-YELLOW Urine Turbidity CLOUDY Urine pH 6.0 Urine Specific [place]ume 1.024 Urine Protein 300 Urine Glucose (UA) NEG Urine Ketones NEG Urine Occult Blood MOD Urine Nitrite NEG Urine Bilirubin SMALL Urine Urobilinogen 4.0 Urine Leukocyte Esterase NEG Urine RBC 70 Urine WBC 24 Urine Squamous Epithelial 11 Cells Urine Amorphous Sediment MOD Urine Bacteria MOD Urine Hyaline Casts 81 Urine Mucus MOD Microscopic Urinalysis Comment CATH-CULTURE IND Blood Gas Puncture Site RT FEMORAL Blood Gas Patient Temperature 98.6 Venous Blood pH 7.19 Venous Blood Partial Pressure 39 CO2 Venous Blood Partial Pressure 33 O2 Venous Blood HCO3 14 Venous Blood Oxygen Saturation 41 Venous Blood Oxygen Content 6.9 Venous Blood Base Excess -12.2 Oxygen Delivery Device BIPAP Blood Gas Ventilator Setting IPAP 12/EPAP 5 Blood Gas Inspired Oxygen 100 White Blood Count 27.4 Red Blood Count 3.73 Hemoglobin 11.2 Hematocrit 36.6 Mean Corpuscular Volume 98.1 Mean Corpuscular Hemoglobin 29.9 Mean Corpuscular Hemoglobin 30.5 Concent Red Cell Distribution Width 19.6 Platelet Count 45 Mean Platelet Volume 10.3 Neutrophils (%) (Auto) 92.5 Lymphocytes (%) (Auto) 4.7 Monocytes (%) (Auto) 2.7 Eosinophils (%) (Auto) 0.0 Basophils (%) (Auto) 0.1 Neutrophils # (Auto) 25.3 Lymphocytes # (Auto) 1.3 Monocytes # (Auto) 0.7 Eosinophils # (Auto) 0.0 Basophils # (Auto) 0.0 CBC Comment AUTO DIFF Differential Total Cells 100 Counted Neutrophils % (Manual) 80 Band Neutrophils % 17 Lymphocytes % 1 Monocytes % 2 Neutrophils # (Manual) 26.6 Nucleated Red Blood Cells 2 Differential Comment AUTO DIFF CONFIRMED Toxic Granulation 1+ Toxic Vacuolation PRESENT Platelet Estimate LOW Platelet Morphology Comment NORMAL Sodium Level 132 Potassium Level 6.2 Chloride Level 99 Carbon Dioxide Level 16.3 Anion Gap 17 Blood Urea Nitrogen 44 Creatinine 1.14 Estimat Glomerular Filtration 57 Rate Random Glucose 67 Calcium Level 7.6 Magnesium Level 2.4 Total Bilirubin 2.8 Aspartate Amino Transf 202 (AST/SGOT) Alanine Aminotransferase 124 (ALT/SGPT) Alkaline Phosphatase 169 Total Creatine Kinase 65 Troponin I 2.86 Total Protein 6.2 Albumin 2.3 Lipase 105 Human Chorionic Gonadotropin, LESS THAN 1 Quant Test 11/06/16 11/06/16 11/07/16 11/07/16 21:30 23:00 00:28 02:40 Blood Type O POSITIVE Antibody Screen POSITIVE Crossmatch Leukocyte-Reduced Red Blood Cells Blood Bank Comment Lactic Acid Level 6.0 Antibody Identification Anti-Jka Blood Gas Puncture Site CENTRAL LINE Blood Gas Patient Temperature 98.6 Venous Blood pH 7.40 Venous Blood Partial Pressure 39 CO2 Venous Blood Partial Pressure 41 O2 Venous Blood HCO3 24 Venous Blood Oxygen Saturation 68 Venous Blood Oxygen Content 10.0 Venous Blood Base Excess -0.6 Oxygen Delivery Device BiPAP Blood Gas Inspired Oxygen 60 Test 11/07/16 11/07/16 11/07/16 11/07/16 03:44 03:45 05:10 08:00 Urine Color COLORLESS Urine Turbidity CLEAR Urine pH 5.0 Urine Specific [place]ume 1.005 Urine Protein NEG Urine Glucose (UA) NEG Urine Ketones NEG Urine Occult Blood TRACE Urine Nitrite NEG Urine Bilirubin NEG Urine Urobilinogen LESS THAN 2.0 Urine Leukocyte Esterase NEG Urine RBC 1 Urine WBC 1 Urine Mucus FEW Microscopic Urinalysis Comment CATH-CULT NOT IND Urine Opiates Screen NEG Urine Barbiturates Screen NEG Urine Amphetamines Screen NEG Urine Benzodiazepines Screen NEG Urine Cocaine Screen NEG Urine Cannabinoids Screen NEG White Blood Count 26.0 Red Blood Count 3.60 Hemoglobin 10.6 Hematocrit 33.9 Mean Corpuscular Volume 94.1 Mean Corpuscular Hemoglobin 29.5 Mean Corpuscular Hemoglobin 31.3 Concent Red Cell Distribution Width 19.8 Platelet Count 36 Mean Platelet Volume 9.5 Neutrophils (%) (Auto) 92.5 Lymphocytes (%) (Auto) 5.0 Monocytes (%) (Auto) 2.1 Eosinophils (%) (Auto) 0.0 Basophils (%) (Auto) 0.4 Neutrophils # (Auto) 24.0 Lymphocytes # (Auto) 1.3 Monocytes # (Auto) 0.6 Eosinophils # (Auto) 0.0 Basophils # (Auto) 0.1 CBC Comment AUTO DIFF Differential Total Cells 100 Counted Neutrophils % (Manual) 73 Band Neutrophils % 21 Lymphocytes % 3 Monocytes % 3 Neutrophils # (Manual) 24.4 Differential Comment FINAL DIFF MANUAL Platelet Estimate LOW Platelet Morphology Comment NORMAL Ovalocytes 1+ Sodium Level 137 Potassium Level 3.8 Chloride Level 101 Carbon Dioxide Level 25.7 Anion Gap 10 Blood Urea Nitrogen 43 Creatinine 0.85 Estimat Glomerular Filtration 80 Rate Random Glucose 151 Lactic Acid Level 1.9 Calcium Level 7.7 Total Bilirubin 3.2 Aspartate Amino Transf 303 (AST/SGOT) Alanine Aminotransferase 168 (ALT/SGPT) Alkaline Phosphatase 148 Total Creatine Kinase 58 54 Troponin I 2.67 2.45 Total Protein 5.9 Albumin 2.3 Prothrombin Time 107.1 Prothromb Time International 8.8 Ratio Activated Partial 51.1 Thromboplast Time Date/Time Procedure Status Source Growth 11/07/16 01:30 Aerobic Blood Culture Received Blood Line Pending 11/07/16 01:30 Anaerobic Blood Culture Received Blood Line Pending 11/06/16 20:45 Urine Culture Received Urine Catheterized Urine Pending Result Diagram: 11/07/16 0345 11/07/16 0345 Imaging Last Impressions Chest X-Ray 11/07/16 0000 Signed Impressions: Service Date/Time: Monday, November 07, 2016 02:03 - CONCLUSION: 1. Right subclavian central venous catheter with the tip projecting over the central venous system. No pneumothorax. 2. Worsening bibasilar effusions with atelectasis. 3. Cardiomegaly with interstitial prominence suggesting some degree of vascular congestion or volume overload. 4. Valvular prostheses. Milan Aguilar MD Assessment and Plan Assessment and Plan 26 year-old female with history of IVDU and endocarditis, s/p valve repair, hospitalized 11/06/16 for septic shock. Problem List: (1) Septic shock Status: Acute Plan: Meets SIRS criteria with tachycardia (105), tachypnea (44), and leukocytosis (27.4k). Patient history suspicious for infectious source Meets severe sepsis with signs of organ dysfunctions (acute respiratory failure , platelets <100,000, and lactate 2+) Meets septic shock with lactate greater than four (6.0) after 30mL/kg fluid bolus in ED Differential for source: cardiac (endocarditis) vs respiratory (PNA vs bronchitis vs PE) vs urinary (UTI) vs abdominal (hepatitis vs SBO) vs metabolic (IVDU vs MRSA) vs other -Admit to inpatient under Dr. Pires/FPTS team -Consult -Consult Account Analyst: Dr Novak aware of pt, appreciate assistance with management -Consult Cardiology: appreciate assistance with management pt with hx endocarditis, s/p recent valve replacement, with septic shock and elevated troponins -Consult Infectious Disease: re: medication titrations in light of antibiogram, recent hospitalization and surgery, and hx MRSA -Consult Case management- anticipate assistance with placement and discharge +/- community resources -PT/OT consulted -Sepsis Protocol -Fluids: s/p 2.1L NS in ED. Continue fluid resuscitation with MIVF @ 100mL/hr -Antibiotics: received Vanc/Zosyn X1 in ED. Continue renally-dosed Zosyn 3.375 IV q6h SOMMER. Continue Vancomycin 1g IV daily + Vanc pharmacy consult -Lactic acid protocol. 10.0 on admission, continue to trend q4h until wnl, will repeat in AM regardless. Trending down 10 -> 6.0. -Insert Carter, monitor I/Os, vitals q4h, oxygen support for O2 saturations 89 %+, NPO in case of surgery or possible intubation, type and screen pending -Laboratory workup -Fluid overloaded with BNP 2030. S/p Lasix 40mg IV x1 in ED. -CBC: leukocytosis to 27.4k. Thrombocytopenia to 45k. Left-shift with 17 bands, I/T ratio 0.17. Very mild anemia- H/H 11/36, MCV 98. -Electrolytes- hyponatremia (132), hyperkalemia (6.2), low bicarb (16) -VBG- pH 7.2, pCO2 39, HCO3 14, suggesting metabolic acidosis. Anion gap elevated at 17 -UDS pending -Blood cultures (11/06) x2 pending -CXR (11/06) bilateral consolidation, L > R, with mild cardiomegaly -U/A (3) contaminated sample with 11 squamous cells. Will repeat u/a with cathed sample to rule out UTI but covered per abx above -Acute kidney injury with Bun/Cr 44/1.1, GFR 57, from baseline Cr 0.75-1.0 -b-HCG negative -ACS rule out -Troponin elevated to 2.86 on admission (9pm) -EKG difficult to interpret secondary to significant artifact. Continue continuous telemetry and repeat EKG -Trend Trop, CPK, EKG x2 q6h (2am, 8am) probably secondary to her overall illness and work of her heart -PT/INR pending- pt on Coumadin (2) Chronic systolic (congestive) heart failure Status: Chronic Plan: History of MRSA endocarditis secondary to IVDU. S/p aortic and mitral valve repair 09/2016. ECHO 09/2016 with EF 25-30% with pericardial effusion w/ o hemodynamic compromise. -Continue aspirin 81mg PO daily -Continue Ramipril 2.5mg PO daily -Continue Carvedilol 3.125mg BID -PT/INR and PTT pending. Goal INR 2.0-2.5, hold for INR 3.5+ -Continue home Coumadin 3.0mg Mon, Wed, Fri -Continue home Coumadin 2.5mg Sat, , Th, Sat -Hold home Lasix 40mg PO daily -S/p Lasix 40mg IV x1 in ED -Add Lasix 40mg IV daily (3) Nutrition, metabolism, and development symptoms Status: Acute Plan: Fluids: MIVF @ 100mL/hr Electrolytes: presented with hyponatremia, hypokalemia. Replete per ICU protocol Nutrition: NPO at present DVT prophylaxis: SCDs + continue home Coumadin at present, INR pending, consider adjusting as indicated per INR GI prophylaxis: Continue home Protonix 40mg IV daily Chronic medical conditions: Asthma (?): Continue home Albuterol 2 puff q4h PRN Anxiety: Continue home Celexa 40mg PO daily Anemia: Continue home ferrous sulfate 325mg BID Insomnia: Continue home restoril 7.5mg PO HS PRN (4) Acute respiratory failure Status: Acute (5) Anemia Status: Chronic (6) Insomnia Status: Chronic (7) Elevated LFTs Status: Acute (8) Hyponatremia Status: Acute (9) Thrombocytopenia Status: Acute (10) Acute kidney injury Status: Acute (11) Elevated troponin Status: Acute (12) history of IV drug abuse Status: Chronic (13) Lactic acidosis Status: Acute (14) Hyperkalemia Status: Acute (15) Anxiety Status: Acute (16) Left hemiparesis Status: Chronic (17) Hepatitis C Status: Chronic (18) Hx of cerebral embolic infarction Status: Chronic Physician Certification 2 Midnight Certification Type: Admission for Inpatient Services Order for Inpatient Services The services are ordered in accordance with Medicare regulations or non- Medicare payer requirements, as applicable. In the case of services not specified as inpatient-only, they are appropriately provided as inpatient services in accordance with the 2-midnight benchmark. Estimated LOS (days): 7 7 days is the estimated time the patient will need to remain in the hospital, assuming treatment plan goals are met and no additional complications. Post-Hospital Plan: Not yet determined Problem Qualifiers (1) Acute respiratory failure: Qualified Code: J96.01 - Acute respiratory failure with hypoxia (2) Anemia: Qualified Code: D64.9 - Anemia, unspecified type (3) Insomnia: Qualified Code: G47.00 - Insomnia, unspecified type (4) Hepatitis C: Qualified Code: B18.2 - Chronic hepatitis C without hepatic coma Gladys Pires MD Nov 07, 2016 09:10
--- NOTE | 2016-11-07 09:43 | PD.CONS ---
History of Present Illness Service Infectious disease Consult Requested By Dr Michael Cain Reason for Consult Evaluate patient with history of endocarditis, percent with severe sepsis Primary Care Physician Abe Gray MD Diagnoses: History of Present Illness Patient seen and examined. Records reviewed. Patient is a 26-year-old female presented to the hospital complaining of severe shortness of breath. 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 She has known IV drug use. In August she presented with acute pulmonary edema, which was due to her severe valvular heart disease, and she had severe AI as well as severe MR at that time. Workup at that time did not reveal any new infection, and she subsequently underwent heart surgery September 07 and had mitral valve replacement as well as aortic valve replacement with a tissue valve. She did well postoperatively, went to a rehabilitation facility, and subsequently discharged to home. Patient stays with her parents. She denies using any IV drugs since she was discharged from the rehabilitation facility. She claims that the last time she used was prior to her hospitalization last August. Patient stated that she's been having shortness of breath over the last 2 weeks. It had progressively worsened and she presented to the hospital for further evaluation and treatment. She complains of pain on her lower sternum which apparently has been present for quite a while. Denies any significant cough. She denies any fever although she gets sweats. There's been no nausea or vomiting, or diarrhea. She denies any dysuria, and claims she urinates a lot because she is on diuretics. She's also been noticing increased abdominal distention and lower extremity edema. Patient has had previous stroke as a result of her endocarditis and she has left-sided weakness, although she is able to ambulate using a cane. On presentation here she is afebrile. She is currently on dobutamine. Her WBC is elevated. Her initial urinalysis showed some mild pyuria. Of note is that last September 21 she had an echocardiogram which showed a well functioning aortic valve and mitral valve, her EF is reduced and ranges 25-30%, and she had a moderate to large loculated pericardial effusion identified at that time. There was no evidence of hemodynamic compromise. I don't have any information as to whether she had any other intervention or any follow-up after that echocardiogram was done. Her chest x-ray on admission shows cardiomegaly with basilar infiltrates. Infectious disease consultation has been requested to evaluate the patient. Review of Systems Constitutional: COMPLAINS OF: Night Sweats, DENIES: Fever, Dizziness Eyes: DENIES: Eye pain Ears, nose, mouth, throat: DENIES: Nasal discharge, Oral lesions, Throat pain, Ear Pain, Running Nose, Sinus Pain, Toothache Respiratory: COMPLAINS OF: Shortness of breath, DENIES: Cough, Sputum production Cardiovascular: COMPLAINS OF: Chest pain, Lower Extremity Edema, DENIES: Palpitations, Syncope Gastrointestinal: COMPLAINS OF: Abdominal pain, DENIES: Diarrhea, Nausea, Vomiting, Difficulty Swallowing Genitourinary: COMPLAINS OF: Urinary frequency, DENIES: Urgency, Dysuria Musculoskeletal: DENIES: Joint pain Integumentary: DENIES: Rash Hematologic/lymphatic: DENIES: Bruising Immunologic/allergic: DENIES: Urticaria Neurologic: COMPLAINS OF: Localized weakness, DENIES: Headache Psychiatric: COMPLAINS OF: Confusion, DENIES: Hallucinations Past Family Social History Allergies: Coded Allergies: *MDRO Multi-Drug Resistant Organism (Verified Adverse Reaction, Unknown, ) MRSA PCR screen positive - 10/18/2015 & 08/12/16 MRSA urine, blood, sputum and CSF- 10/2015 MDR PSAE in sputum 2015 Past Medical History Hospitalization from October to December 2015 for infective endocarditis and subsequent complication Hospitalization June 22 to July 23 for CHF and cervical discitis She's had CVA with subarachnoid hemorrhage, embolic lesions to the brain lungs and spleen as a result of her endocarditis Known IV drug use, patient states last time she used was prior to her hospitalization in August 2016 Bilateral sacroiliitis CVA with residual left-sided hemiplegia Past Surgical History Surgery on her discitis last July 09, 2016 AVR, MVR with tissue valve September 07, 2016 Active Ordered Medications Tylenol [place] Albuterol Aspirin Coreg Celexa Dobutamine Colace Ferrous sulfate Lasix Zofran Protonix Zosyn Altace Restoril Vancomycin Social History Patient lives with her parents Ex smoker History drink a glass of wine per month History of IV drug use, claims last use was August 2016 Physical Exam Vital Signs Vital Signs Date Time Temp Pulse Resp B/P Pulse Ox O2 Delivery O2 Flow Rate FiO2 11/07/16 07:30 100 Bi-Pap 40 11/07/16 06:00 78 11/07/16 04:00 75 3/8/17 04:00 96.4 75 20 92/54 100 11/07/16 03:11 100 Bi-Pap 40 11/07/16 03:00 100 40 11/07/16 01:00 100 60 11/07/16 01:00 100 Bi-Pap 60 11/07/16 01:00 97.6 80 31 94/58 100 11/07/16 01:00 80 11/07/16 00:07 100 60 11/06/16 23:48 87 20 91/58 100 BiPAP 100 11/06/16 20:39 103 34 147/72 100 BiPAP 100 11/06/16 20:27 103 36 100 BiPAP 11/06/16 20:20 100 BiPAP 11/06/16 20:20 101 36 100 BiPAP 11/06/16 20:01 97.4 106 44 134/65 11/06/16 19:40 100 100 Physical Exam GENERAL: This is a well-nourished, well-developed female, awake and alert, on a BiPAP mask, in mild respiratory distress when talking SKIN: Cool and dry. No generalized rash, no ecchymosis, no peripheral embolic lesions seen HEAD: Atraumatic. Normocephalic. No temporal or scalp tenderness. EYES: [place] conjunctivae, no petechia or hemorrhage. Pupils equal round and reactive. Extraocular motions intact. No scleral icterus. No injection or drainage. ENT: Nose without bleeding, or purulent drainage. Has a BiPAP mask. NECK: Trachea midline. No JVD or lymphadenopathy. Supple, nontender, no meningeal signs. CARDIOVASCULAR: Regular rate and rhythm. Tachycardic. There is a systolic murmur heard on the whole left precordium and base of the heart. No pericardial rub heard. RESPIRATORY: Coarse breath sounds bilaterally. With few rhonchi, and decreased breath sounds at the bases. GASTROINTESTINAL: Abdomen soft, non-tender, nondistended. Bowel sounds are present and normoactive. No hepato-splenomegaly, or palpable masses. No guarding. MUSCULOSKELETAL: Extremities without clubbing, cyanosis, warm and well perfused. Has pitting edema on LLE. No joint tenderness. No calf tenderness. Negative Homans sign bilaterally. NEUROLOGICAL: Awake and alert. L hemiparesis, has some movement in her LLE but not in her LUE PSYCH: Cooperative LINE: Central line with no evidence of infection : Carter cath in place, urine looks clear Laboratory Laboratory Tests Test 11/06/16 11/06/16 11/06/16 11/06/16 19:47 20:45 20:55 21:16 Erythrocyte Sedimentation Rate 2 Lactic Acid Level 10.0 B-Type Natriuretic Peptide 2030 Urine Color DARK-YELLOW Urine Turbidity CLOUDY Urine pH 6.0 Urine Specific [place] 1.024 Urine Protein 300 Urine Glucose (UA) NEG Urine Ketones NEG Urine Occult Blood MOD Urine Nitrite NEG Urine Bilirubin SMALL Urine Urobilinogen 4.0 Urine Leukocyte Esterase NEG Urine RBC 70 Urine WBC 24 Urine Squamous Epithelial 11 Cells Urine Amorphous Sediment MOD Urine Bacteria MOD Urine Hyaline Casts 81 Urine Mucus MOD Microscopic Urinalysis Comment CATH-CULTURE IND Blood Gas Puncture Site RT FEMORAL Blood Gas Patient Temperature 98.6 Venous Blood pH 7.19 Venous Blood Partial Pressure 39 CO2 Venous Blood Partial Pressure 33 O2 Venous Blood HCO3 14 Venous Blood Oxygen Saturation 41 Venous Blood Oxygen Content 6.9 Venous Blood Base Excess -12.2 Oxygen Delivery Device BIPAP Blood Gas Ventilator Setting IPAP 12/EPAP 5 Blood Gas Inspired Oxygen 100 White Blood Count 27.4 Red Blood Count 3.73 Hemoglobin 11.2 Hematocrit 36.6 Mean Corpuscular Volume 98.1 Mean Corpuscular Hemoglobin 29.9 Mean Corpuscular Hemoglobin 30.5 Concent Red Cell Distribution Width 19.6 Platelet Count 45 Mean Platelet Volume 10.3 Neutrophils (%) (Auto) 92.5 Lymphocytes (%) (Auto) 4.7 Monocytes (%) (Auto) 2.7 Eosinophils (%) (Auto) 0.0 Basophils (%) (Auto) 0.1 Neutrophils # (Auto) 25.3 Lymphocytes # (Auto) 1.3 Monocytes # (Auto) 0.7 Eosinophils # (Auto) 0.0 Basophils # (Auto) 0.0 CBC Comment AUTO DIFF Differential Total Cells 100 Counted Neutrophils % (Manual) 80 Band Neutrophils % 17 Lymphocytes % 1 Monocytes % 2 Neutrophils # (Manual) 26.6 Nucleated Red Blood Cells 2 Differential Comment AUTO DIFF CONFIRMED Toxic Granulation 1+ Toxic Vacuolation PRESENT Platelet Estimate LOW Platelet Morphology Comment NORMAL Sodium Level 132 Potassium Level 6.2 Chloride Level 99 Carbon Dioxide Level 16.3 Anion Gap 17 Blood Urea Nitrogen 44 Creatinine 1.14 Estimat Glomerular Filtration 57 Rate Random Glucose 67 Calcium Level 7.6 Magnesium Level 2.4 Total Bilirubin 2.8 Aspartate Amino Transf 202 (AST/SGOT) Alanine Aminotransferase 124 (ALT/SGPT) Alkaline Phosphatase 169 Total Creatine Kinase 65 Troponin I 2.86 Total Protein 6.2 Albumin 2.3 Lipase 105 Human Chorionic Gonadotropin, LESS THAN 1 Quant Test 11/06/16 11/06/16 11/07/16 11/07/16 21:30 23:00 00:28 02:40 Blood Type O POSITIVE Antibody Screen POSITIVE Crossmatch Leukocyte-Reduced Red Blood Cells Blood Bank Comment Lactic Acid Level 6.0 Antibody Identification Anti-Jka Blood Gas Puncture Site CENTRAL LINE Blood Gas Patient Temperature 98.6 Venous Blood pH 7.40 Venous Blood Partial Pressure 39 CO2 Venous Blood Partial Pressure 41 O2 Venous Blood HCO3 24 Venous Blood Oxygen Saturation 68 Venous Blood Oxygen Content 10.0 Venous Blood Base Excess -0.6 Oxygen Delivery Device BiPAP Blood Gas Inspired Oxygen 60 Test 11/07/16 11/07/16 11/07/16 11/07/16 03:44 03:45 05:10 08:00 Urine Color COLORLESS Urine Turbidity CLEAR Urine pH 5.0 Urine Specific [place] 1.005 Urine Protein NEG Urine Glucose (UA) NEG Urine Ketones NEG Urine Occult Blood TRACE Urine Nitrite NEG Urine Bilirubin NEG Urine Urobilinogen LESS THAN 2.0 Urine Leukocyte Esterase NEG Urine RBC 1 Urine WBC 1 Urine Mucus FEW Microscopic Urinalysis Comment CATH-CULT NOT IND Urine Opiates Screen NEG Urine Barbiturates Screen NEG Urine Amphetamines Screen NEG Urine Benzodiazepines Screen NEG Urine Cocaine Screen NEG Urine Cannabinoids Screen NEG White Blood Count 26.0 Red Blood Count 3.60 Hemoglobin 10.6 Hematocrit 33.9 Mean Corpuscular Volume 94.1 Mean Corpuscular Hemoglobin 29.5 Mean Corpuscular Hemoglobin 31.3 Concent Red Cell Distribution Width 19.8 Platelet Count 36 Mean Platelet Volume 9.5 Neutrophils (%) (Auto) 92.5 Lymphocytes (%) (Auto) 5.0 Monocytes (%) (Auto) 2.1 Eosinophils (%) (Auto) 0.0 Basophils (%) (Auto) 0.4 Neutrophils # (Auto) 24.0 Lymphocytes # (Auto) 1.3 Monocytes # (Auto) 0.6 Eosinophils # (Auto) 0.0 Basophils # (Auto) 0.1 CBC Comment AUTO DIFF Differential Total Cells 100 Counted Neutrophils % (Manual) 73 Band Neutrophils % 21 Lymphocytes % 3 Monocytes % 3 Neutrophils # (Manual) 24.4 Differential Comment FINAL DIFF MANUAL Platelet Estimate LOW Platelet Morphology Comment NORMAL Ovalocytes 1+ Sodium Level 137 Potassium Level 3.8 Chloride Level 101 Carbon Dioxide Level 25.7 Anion Gap 10 Blood Urea Nitrogen 43 Creatinine 0.85 Estimat Glomerular Filtration 80 Rate Random Glucose 151 Lactic Acid Level 1.9 Calcium Level 7.7 Total Bilirubin 3.2 Aspartate Amino Transf 303 (AST/SGOT) Alanine Aminotransferase 168 (ALT/SGPT) Alkaline Phosphatase 148 Total Creatine Kinase 58 54 Troponin I 2.67 2.45 Total Protein 5.9 Albumin 2.3 Prothrombin Time 107.1 Prothromb Time International 8.8 Ratio Activated Partial 51.1 Thromboplast Time Date/Time Procedure Status Source Growth 11/07/16 01:30 Aerobic Blood Culture Received Blood Line Pending 11/07/16 01:30 Anaerobic Blood Culture Received Blood Line Pending 11/06/16 20:45 Urine Culture Received Urine Catheterized Urine Pending Result Diagram: 11/07/16 0345 11/07/16 0345 Imaging RADIOLOGY STUDIES/FILMS REVIEWED Chest X-Ray 11/07/16 0000 Signed Impressions: Service Date/Time: Monday, November 07, 2016 02:03 - CONCLUSION: 1. Right subclavian central venous catheter with the tip projecting over the central venous system. No pneumothorax. 2. Worsening bibasilar effusions with atelectasis. 3. Cardiomegaly with interstitial prominence suggesting some degree of vascular congestion or volume overload. 4. Valvular prostheses. Milan Aguilar MD Assessment and Plan Assessment and Plan IMPRESSION Respiratory failure, etiology? - CHF, has known low EF - ?new sepsis, ?new IE - had echo last Sep 21 with large pericardial effusion S/P AVR and MVR for severe AI and MR due to IE Episode of IE last year with complications Known IVDU RECOMMENDATION Repeat 2 BC Echo Continue Vanco and Zosyn Check BNP, ESR and CRP Follow C/S Monitor progress I will follow along with you Thank you for this consultation Discussed Condition With Discussed with Kenia Medrano MD Nov 07, 2016 09:43
--- NOTE | 2016-11-07 11:00 | RADRPT ---
EXAM DATE/TIME: 11/07/2016 09:33 [facility] COMPARISON: No previous studies available for comparison. INDICATIONS : Swelling in left lower extremity. MEDICAL HISTORY : Hepatitis C. Cerebrovascular accident. Ruptured L4-5. Endocarditis. IV drug abuse. C.Diff 6. MDR PSAE 2015. MRSA 08/2016. SURGICAL HISTORY : C-Spine fusion and decompression. Mitral valve repair. ENCOUNTER: Initial ACUITY: 1 day PAIN SCORE: Non-responsive LOCATION: Left leg. TECHNIQUE: Venous ultrasound of the leg was performed from the inguinal ligament to the proximal calf. Real-link e, color Doppler and spectral tracing, compression and augmentation techniques were used. FINDINGS: There is normal compressibility of the deep venous system from the inguinal region to the proximal ca lf. No echogenic clot is seen in the lumen of the common femoral, femoral, popliteal, and posterior tibial veins. There is a normal response of the venous system to proximal and distal augmentation an d respiration. Subcutaneous edema noted. Nothing organized or drainable seen. CONCLUSION: No DVT of the left lower extremity. Nonspecific subcutaneous edema. Mookie Scales MD on November 07, 2016 at 10:58 Board Certified Radiologist. This report was verified electronically.
[2016-11-07] MEDS ORDERED: NOREPINEPHRINE-DEXTROSE DRIP 250 ML IV ONE (11:51)
--- NOTE | 2016-11-07 11:55 | MB ---
cc: PETE HA DO DATE OF CONSULTATION: 11/07/2016 REASON FOR CONSULTATION History of endocarditis status post replacement with current sepsis. HISTORY OF PRESENT ILLNESS Ewa Barrios is a 26-year-old female who originally presented to [facility] on November 06, 2016 with a complaint of severe shortness of breath. She has a long extensive history with multiple long hospitalizations starting in early 2015. She has had known endocarditis and underwent AVR and MVR by Dr. Meier on September 07, 2016. Post rehab she was at home with her family. She denies any IV drug abuse since being at home with her family. She has noticed the shortness of breath over the past two weeks and it has gotten progressively worse. She also has had pain in the epigastric region which has been there for sometime. She states that she does get some fevers and chills but has not noticed this extensively. She denies nausea or vomiting. Upon arrival she was found to be in respiratory distress and placed on BiPAP. In seeing her she is currently stable and comfortable on BiPAP. PAST MEDICAL HISTORY 1. Infective endocarditis with subsequent complications. 2. Known congestive heart failure. 3. Embolic complications of endocarditis including CVA, septic emboli to the lungs, emboli to the spleen, cervical diskitis. History of IV drug abuse, states last time was prior to her hospitalization in August of 2016. 4. CVA with residual left-sided hemiplegia. 5. Previous echocardiogram (September 21, 2016) showing a moderate to large loculated pericardial effusion with no evidence of tamponade. 6. History of hepatitis C. PAST SURGICAL HISTORY 1. Aortic valve replacement (September 07, 2016) with a 19 mm Trifecta tissue valve. 2. Mitral valve replacement (September 07, 2016) with a 27 mm Mi Magna Ease tissue valve. 3. Diskitis surgery (July 09, 2016). ALLERGIES NO KNOWN DRUG ALLERGIES. MEDICATION 1. Ramipril 2.5 mg daily. 2. Coumadin 2.5 mg on Saturday, Saturday, , Saturday, 3 mg on Saturday, Saturday, Saturday. 3. Celexa 40 mg daily. 4. Restoril 7.5 mg every night as needed for insomnia. 5. Albuterol 2 puffs every 4-6 hours as needed. 6. Coreg 3.125 mg every 12 hours. 7. Iron 325 mg b.i.d. 8. Lasix 40 mg daily. 9. Percocet 5/325 every 8 hours as needed for pain. 10. Aspirin 81 mg daily. 11. Protonix 40 mg daily. SOCIAL HISTORY The patient lives with her parents. Previously smoked one pack per day. Has a history of IV drug abuse with last use being August 2016. FAMILY HISTORY Denies premature coronary artery disease or sudden cardiac within the family. REVIEW OF SYSTEMS Difficult to ascertain due to the patient currently being on BiPAP. 14-systems were reviewed as above in the history and physical, pertinent positives and negatives above, otherwise negative. PHYSICAL EXAMINATION VITAL SIGNS: Temperature 96.4, heart rate 78, blood pressure 92/54, respirations 20, pulse ox 100% on BiPAP at 40%. GENERAL: In general the patient is well-nourished but chronic ill appearing. Alert, awake and oriented on a BiPAP mask with mild respiratory distress. HEENT: Extraocular muscles intact. Mucous membranes moist. NECK: Neck is supple. No JVD at 45 degrees. No carotid bruits heard bilaterally. Carotid upstroke is brisk in nature. HEART: Heart is regular rate and rhythm. Positive first and second heart sounds with a 1/6 holosystolic murmur noted at the base. No gallops or rubs noted. LUNGS: Lungs have coarse breath sounds bilaterally with few rhonchi. ABDOMEN: Abdomen is soft, nontender, nondistended. No organomegaly noted. EXTREMITIES: Show trace edema but no clubbing or cyanosis. NEUROLOGIC: Neurologically awake and alert. No cranial nerve deficits noted. Left hemiparesis with weakness, specifically of her left upper extremity but does have some mobility of her left lower extremity. SKIN: Cool and dry. OSTEOPATHIC: No kyphoscoliosis, lordosis or paraspinal tender points. LABORATORY WORK White blood cells 26.0, hemoglobin 10.6, hematocrit 33.9, platelets 36. INR 8.8. Potassium 3.8, BUN 43, creatinine 0.85, lactic acid 10, decreasing to 1.9, AST 303, ALT 168, troponin 2.86, decreasing to 2.45. Electrocardiogram (November 07, 2016 at 0839) sinus rhythm at 75 beats per minute, possible left atrial enlargement, and possible old septal infarct, nonspecific ST-T wave changes. IMPRESSION 1. Septic shock. 2. Chronic systolic congestive heart failure. 3. History of bioprosthetic AVR and MVR (September 07, 2016). 4. History of multiple complications due to infectious endocarditis including CVA, septic emboli to the lungs, septic emboli to the spleen, cervical diskitis. 5. Acute respiratory failure. 6. Anemia. 7. Leukocytosis. 8. Thrombocytopenia most likely due to sepsis. 9. Elevated LFTs due to shock. 10. Acute kidney injury. 11. Elevated troponins most likely type 2 in nature due to septic shock and lactic acidosis. 12. Lactic acidosis. 13. History of IV drug abuse with last episode per the patient August 2016. 14. Hyperkalemia. 15. Left hemiparesis due to CVA. 16. History of hepatitis C. 17. Coagulopathy. RECOMMENDATIONS 1. Supportive care per the critical care team. 2. Will check a 2-D echo as she previously did have a moderate to large pericardial effusion as well as to look for significant regurgitation from her previous bioprosthetic replacements. 3. Repeat blood cultures per infectious disease. 4. Will hold her Coumadin due to her current coagulopathy. 5. We will attempt to diurese her with IV Lasix. 6. Antibiotics per infectious disease. 7. Elevated troponin most likely due to current illness including sepsis and lactic acidosis. 8. Further recommendations based on hospital course. Thank you for allowing me to see Ewa Barrios, if there are any questions please do not hesitate to call. Pete Ha DO VGP/TLL /10:12 AM /11:04 AM
[2016-11-07] MEDS ORDERED: NOREPINEPHRINE 4 MG/D5W 250 ML IV SCH (12:00)
--- NOTE | 2016-11-07 15:05 | HHI.CCPN ---
Subjective Remarks/Hospital Course 26 y/o s/p MVR, AVR September 03 for endocarditis. She continued to use iv drugs until mid-October. Presents now with gross fluid overload and hypoxemic respiratory failure, with severe sepsis 11/07/16: Patient remains in septic shock and respiratory failure, remains on dobutamine, Levophed added. Requiring BiPAP. White count slightly improved 26, 000 from [id number]. 2-D echo showed possible large vegetation on the prosthetic aortic valve Objective Vital Signs Date Time Temp Pulse Resp B/P Pulse Ox O2 Delivery O2 Flow Rate FiO2 11/07/16 14:00 74 11/07/16 12:49 100 40 11/07/16 12:00 96.3 20 88/50 11/07/16 07:30 Bi-Pap Result Diagram: 11/07/16 0345 11/07/16 0345 Other Results Laboratory Tests Test 11/06/16 11/07/16 20:55 02:40 Blood Gas Puncture Site RT FEMORAL CENTRAL LINE Blood Gas Patient Temperature 98.6 98.6 Venous Blood pH 7.19 7.40 (7.360-7.400) (7.360-7.400) Venous Blood Partial Pressure 39 mmHg (44-48) 39 mmHg (44-48) CO2 Venous Blood Partial Pressure 33 mmHg (35-40) 41 mmHg (35-40) O2 Venous Blood HCO3 14 mmol/L 24 mmol/L (22-26) (22-26) Venous Blood Oxygen Saturation 41 % (70-76) 68 % (70-76) Venous Blood Oxygen Content 6.9 Vol % 10.0 Vol % (9.0-17.0) (9.0-17.0) Venous Blood Base Excess -12.2 mmol/L -0.6 mmol/L (-2-2) (-2-2) Oxygen Delivery Device BIPAP BiPAP Blood Gas Ventilator Setting IPAP 12/EPAP 5 Blood Gas Inspired Oxygen 100 % 60 % Objective Remarks Gen: Remains critically ill on dobutamine and now started on Levophed Head: Edematous. Neck: Supple, airway widely patent. Lungs: Diffuse crackles. Tachypnea. On BiPAP Heart: RRR, 3/6 systolic murmur in all areas predominantly in the apex and aortic area Abdomen: Soft, nontender, moderately distended. No guarding. Extremities: 2+ tense edema left lower leg. trace edema right leg. 1+ edema both arms. Neuro: Oriented, alert follows commands on right. Left hemiparesis Urinary Catheter: Yes Assessment to: Continue Vascular Central Line Catheter: Yes Assessment to: Continue A/P Problem List: (1) Acute hypoxemic respiratory failure ICD Code: J96.01 Status: Acute (2) Prosthetic valve endocarditis ICD Code: T82.6XXA Status: Acute (3) Septic shock ICD Code: A41.9 Status: Acute Assessment and Plan Plan by systems: Neurologic: Acute on Chronic pain IV drug abuse, with relapse History of CVA with residual left-sided weakness --Minimize sedation, opiates --Watch for airway protection Respiratory: Acute hypoxic respiratory failure History of Bilateral lower lobe subsegmental pulmonary embolism Bilateral pleural effusions --Hypoxia secondary to pleural effusion, pulm edema --Wean BiPAP as tolerated. 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 On my review patient has large prosthetic aortic valve vegetation and high gradient indicating aortic stenosis Cardiology Dr. Blanc, cardiothoracic surgery consulted patient is not a candidate for valvular re do surgery Continue IV Lasix 40 mg every 12, add IV albumin 25 g IV every 12 --Aldactone 50 mg every 12 --Hold JG inhibitor and beta blockers --Continue dobutamine, add Levophed to keep map above 65 Renal: Acute Kidney insufficiency Metabolic acidosis --Every hour urine outputs and strict I's and O's --Monitor renal function closely --Lasix IV as above, along with Aldactone GI: Acute protein calorie malnutrition Start clear liquid diet, if pressor requirement decreases Heme: Subtherapeutic INR History of Bilateral lower lobe subsegmental pulmonary embolism History of nonocclusive left femoral vein DVT 08/20 -INR is supratherapeutic at 8.8. No evidence of bleeding -Repeat INR in a.m. ID: Large prosthetic aortic valve vegetation Septic shock Previous MRSA endocarditis Cultures have been sent. ID consulted. --Continue vancomycin and Zosyn. Cardiology cardiothoracic surgery consulted- not a surgical candidate Endocrine: -- Electrolyte replacement per protocol Prophylaxis: GI Prophylaxis Protonix 40 mg IV daily 24 hours DVT Prophylaxis -- SCDs holding pharmacologic DVT prophylaxis due to supratherapeutic INR. Critical care 40 mins aside from procedures. Keri Damico MD Nov 07, 2016 15:05
[2016-11-07] MEDS ORDERED: WARFARIN SOD 3 MG TAB PO SCH (16:00)
[2016-11-07] MEDS: SPIRONOLACTONE 50 MG TAB PO SCH (16:32)
[2016-11-07] MEDS: ALBUMIN HUMAN 25% 25 GM/100 ML BAGP IV SCH (16:33)
[2016-11-07] MEDS: VANCOMYCIN INJ 1,000 MG in SODIUM CHLOR 0.9% 250 ML INJ 250 ML IV SCH (16:33)
[2016-11-07] MEDS: ACETAMINOPHEN/HYDROcodone 325 MG/5 MG TAB PO PRN (16:37)
--- NOTE | 2016-11-07 18:26 | EKG ---
Date Performed: 11/07/2016 Time Performed: 08:39:58 PTAGE: 26 years EKG: Sinus rhythm POSSIBLE LEFT ATRIAL ENLARGEMENT MARKED RIGHT AXIS DEVIATION SEPTAL MYOCARDIAL INFARCTION , OF INDET ERMINATE AGE ABNORMAL ECG PREVIOUS TRACING : 11/06/2016 19.54 DOCTOR: Patrick Thomas Interpretating Date/Time 11/07/2016 18:24:48
--- NOTE | 2016-11-07 18:39 | EKG ---
Date Performed: 11/06/2016 Time Performed: 19:54:32 PTAGE: 26 years EKG: SINUS TACHYCARDIA POSSIBLE LEFT ATRIAL ENLARGEMENT PATTERN CONSISTENT WITH PULMONARY DISEAS E INCOMPLETE RIGHT BUNDLE BRANCH BLOCK POSSIBLE RIGHT VENTRICULAR HYPERTROPHY SEPTAL MYOCARDIAL INFAR CTION ABNORMAL ECG PREVIOUS TRACING : 08/31/2016 23.55 DOCTOR: Patrick Thomas Interpretating Date/Time 11/07/2016 18:36:27
[2016-11-07] MEDS ORDERED: VANCOMYCIN INJ 1,000 MG in SODIUM CHLOR 0.9% 250 ML INJ 250 ML IV SCH (20:00)
[2016-11-07] MEDS: DOCUSATE SODIUM 100 MG CAP PO SCH (20:51)
[2016-11-07] MEDS: FUROSEMIDE 40 MG/4 ML VIAL IV PUSH SCH (20:52)
[2016-11-08] VITALS (13 sets, daily range): BP systolic 87–116; BP diastolic 53–77; PULSE 73–85; RESP 14–29; TEMP 96.1–97.5; O2SAT 98–100
[2016-11-08] MEDS: PANTOPRAZOLE SODIUM 40 MG VIAL IV PUSH SCH ×2 (00:17→23:51)
[2016-11-08] MEDS: PIPERACIL-TAZO 3.375 GM PREMIX 50 ML IV SCH ×2 (01:46→08:41)
[2016-11-08] MEDS: ALBUMIN HUMAN 25% 25 GM/100 ML BAGP IV SCH ×2 (02:54→15:55)
--- NOTE | 2016-11-08 03:35 | RADRPT ---
EXAM DATE/TIME: 11/08/2016 02:25 [facility] COMPARISON: CHEST SINGLE AP, November 07, 2016, 2:03. INDICATIONS : Respiratory failure. MEDICAL HISTORY : None. SURGICAL HISTORY : None. ENCOUNTER: Subsequent ACUITY: 3 days PAIN SCORE: Non-responsive. LOCATION: Bilateral chest FINDINGS: A single view of the chest demonstrates bibasilar consolidation with associated effusions, unchanged. Heart size is borderline prominent. Median sternotomy wires and osseous structures are intact. Right subclavian central venous catheter is unchanged in position. Patient has a valvular prostheses. CONCLUSION: Persistent bibasilar effusions with associated airspace disease. No interval change. Milan Aguilar MD on November 08, 2016 at 3:33 Board Certified Radiologist. This report was verified electronically.
[2016-11-08] MEDS: DOBUTamine 250 MG/D5W 250 ML PREMIX DRIP IV SCH ×2 (04:37→20:26)
[2016-11-08 05:13] LABS: AUTOMATED NEUTROPHIL # 8.8 TH/MM3 (1.8-7.7); BASOPHIL % 0.3 % (0.0-2.0); EOSINOPHIL % 0.4 % (0.0-4.0); LYMPH % 9.9 % (9.0-44.0); MEAN CELL VOLUME 92.4 FL (80.0-100.0); MEAN CORPUSCULAR HEMOGLOBIN 30.9 PG (27.0-34.0); MEAN CORPUSCULAR HGB CONC 33.5 % (32.0-36.0); MONO % 5.1 % (0.0-8.0); NEUT % 84.3 % (16.0-70.0); PLATELET COUNT 30 TH/MM3 (150-450); RED BLOOD COUNT 3.25 MIL/MM3 (4.00-5.30); RED CELL DISTRIBUTION WIDTH 19.9 % (11.6-17.2); WHITE BLOOD COUNT 10.4 TH/MM3 (4.0-11.0)
[2016-11-08 05:20] LABS: HEMO FLAGS AUTO DIFF; PROTHROMBIN TIME - PATIENT 106.2 SEC (9.8-11.6)
[2016-11-08 05:24] LABS: INTERNATIONAL NORMALIZED RATIO 8.7 RATIO
[2016-11-08 05:51] LABS: ALKALINE PHOSPHATASE 105 U/L (45-117); ALT (GPT) 121 U/L (10-53); ANION GAP 8 MEQ/L (5-15); AST (GOT) 146 U/L (15-37); BICARBONATE 32.9 MEQ/L (21.0-32.0); BLOOD UREA NITROGEN 24 MG/DL (7-18); CHLORIDE 99 MEQ/L (98-107); GLOMERULAR FILTRATION RATE 118 ML/MIN (>89); MAGNESIUM 1.6 MG/DL (1.5-2.5); SODIUM (NA) 140 MEQ/L (136-145); TOTAL BILIRUBIN ADULT 2.9 MG/DL (0.2-1.0)
[2016-11-08 06:05] LABS: POTASSIUM 2.5 MEQ/L (3.5-5.1)
[2016-11-08] MEDS ORDERED: MAGNESIUM OXIDE 400 MG TAB PO PRN (06:30)
[2016-11-08] MEDS ORDERED: MAGNESIUM SULFATE INJ 4 GM in SODIUM CHLORIDE 0.9% INJ 92 ML IV PRN (06:30)
[2016-11-08] MEDS ORDERED: POTASSIUM CHLOR 20 MEQ PREMIX 100 ML IV PRN ×2 (06:30)
[2016-11-08] MEDS ORDERED: SODIUM PHOSPHATE INJ 30 MMOL in SODIUM CHLOR 0.9% 250 ML INJ 240 ML IV PRN (06:30)
[2016-11-08] MEDS ORDERED: MAGNESIUM SULFATE INJ 2 GM in SODIUM CHLORIDE 0.9% INJ 96 ML IV PRN (06:30)
[2016-11-08] MEDS ORDERED: POTASSIUM PHOSPHATE MONOBASIC 500 MG TAB PO/TUBE PRN (06:30)
[2016-11-08] MEDS ORDERED: POTASSIUM PHOSPHATE INJ 30 MMOL in SODIUM CHLOR 0.9% 250 ML INJ 250 ML IV PRN (06:30)
[2016-11-08] MEDS ORDERED: POTASSIUM PHOSPHATE MONOBASIC 500 MG TAB PO PRN (06:30)
[2016-11-08] MEDS ORDERED: POTASSIUM CHLOR 40 MEQ PREMIX 100 ML IV PRN (06:30)
[2016-11-08] MEDS: POTASSIUM CHLOR 40 MEQ PREMIX 100 ML IV PRN (06:34)
[2016-11-08] MEDS: SPIRONOLACTONE 50 MG TAB PO SCH ×2 (08:36→18:43)
[2016-11-08] MEDS: FERROUS SULFATE 325 MG (65 MG ELEMENTAL IRON) TAB PO SCH ×2 (08:40→20:26)
[2016-11-08] MEDS: CITALOPRAM HYDROBROMIDE 40 MG TAB PO SCH (08:40)
[2016-11-08] MEDS: ACETAMINOPHEN/HYDROcodone 325 MG/5 MG TAB PO PRN ×2 (08:40→15:56)
[2016-11-08] MEDS: CARVEDILOL 3.125 MG TAB PO SCH ×3 (08:40→20:48)
[2016-11-08] MEDS: ASPIRIN 81 MG CHEW TAB PO SCH (08:41)
[2016-11-08] MEDS: SODIUM CHLORIDE 0.9% FLUSH 5 ML FLUSH FLUSH SCH ×2 (08:41→20:25)
[2016-11-08] MEDS: FUROSEMIDE 40 MG/4 ML VIAL IV PUSH SCH ×2 (08:41→20:25)
[2016-11-08] MEDS: RAMIPRIL 2.5 MG CAP PO SCH (08:41)
--- NOTE | 2016-11-08 08:46 | HHI.FPPN ---
Subjective Remarks Patient reports breathing is improved. She has been on 2-4 L since yesterday later afternoon. Complains of nonbloody cough and nonradiating chest pain. Abdominal pain she had yesterday improved; no nausea or vomiting. Feeling hungry and wants food. (Delfina Bojorquez MD) Objective Vitals Vital Signs Date Time Temp Pulse Resp B/P Pulse Ox O2 Delivery O2 Flow Rate FiO2 11/08/16 06:00 78 11/08/16 04:00 79 11/08/16 04:00 96.8 79 14 111/77 100 11/08/16 02:00 77 11/08/16 00:00 73 11/08/16 00:00 96.1 73 16 116/69 100 11/07/16 22:00 73 11/07/16 21:38 100 Nasal Cannula 3.00 11/07/16 20:00 75 11/07/16 20:00 95.6 77 19 104/65 100 11/07/16 19:00 100 Nasal Cannula 4.00 11/07/16 18:00 76 11/07/16 16:18 100 Nasal Cannula 4.00 11/07/16 16:18 100 Nasal Cannula 4.00 11/07/16 16:12 100 40 11/07/16 16:00 97.2 76 26 86/52 100 11/07/16 16:00 76 11/07/16 14:00 74 11/07/16 12:49 100 40 11/07/16 12:00 96.3 74 20 88/50 100 11/07/16 12:00 74 11/07/16 10:10 98 40 11/07/16 10:00 72 I/O 11/07/16 11/07/16 11/07/16 11/08/16 11/08/16 11/08/16 07:00 15:00 23:00 07:00 15:00 23:00 Intake Total 203 ml 1123 ml 1103 ml 662 ml Output Total 4350 ml 3600 ml 2000 ml 3000 ml Balance -4147 ml -2477 ml -897 ml -2338 ml Intake Oral 240 ml IV Total 203 ml 1123 ml 863 ml 662 ml Output Urine Total 4350 ml 3600 ml 2000 ml 3000 ml # Voids 0 # Bowel Movements 2 1 0 (Delfina Bojorquez MD) Result Diagram: 11/08/16 0445 11/08/16 0445 Imaging Chest X-Ray 11/08/16 0600 Signed Impressions: Service Date/Time: October 02:25 - CONCLUSION: Persistent bibasilar effusions with associated airspace disease. No interval change. Milan Aguilar MD Lower Extremity Ultrasound 11/07/16 0000 Signed Impressions: Service Date/Time: Monday, November 07, 2016 09:33 - CONCLUSION: No DVT of the left lower extremity. Nonspecific subcutaneous edema. Mookie Scales MD Objective Remarks GENERAL: female laying in bed in NAD. SKIN: Warm and dry. R subclavian central line with no surrounding erythema. HEENT: AT/NC. Pupils equal and round. MMM. HEART: RRR with 3/6 LARRY heard throughout. LUNGS: Anterior lung sounds clear to auscultation. ABDOMEN: Soft, NT, ND. No guarding or rebound. EXTREMITIES: LLE pitting edema and mild calf TTP. Pulses nonpalpable. NEURO: Awake and alert. Left-sided hemiparesis. 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 Critical care managing patient as she is on Levophed and dobutamine. Infectious disease, cardiology, and and CT surgery also consulted. Patient with 3/6 LARRY suggestive of recurrent endocarditis; 2D suggestive of AV valve vegetation but patient needs ROSANGELA and her INR needs to stabilize since she came in at 8.8. She is on IV Vancomycin and Cefepime. Patient's condition is poor but slightly improving as her leukocytosis has resolved and she is now on 3-4L nasal cannula. 1. Severe sepsis/septic shock - Patient presented with tachycardia, tachypnea, leukocytosis with white count 27.4, and lactic acid 10.0 with evidence of end-organ dysfunction including NITISH , transaminitis, and elevated troponins - 3/6 systolic ejection murmur suggestive of possible recurrent infective endocarditis though patient denies drug use since August before her AV and MV replacements - 2D echo reportedly suggestive of AV vegetations. Patient will need ROSANGELA but INR elevated at 8.7. Given 2 units FFP today. If INR >3 tomorrow, will give an additional 1-2 units - Line culture growing Gram positive cocci - Peripheral blood culture pending - Patient on IV vancomycin and cefepime - Continues to be on dobutamine and Levophed - ID, critical care, and cardiology consulted; appreciate their expertise 2. Acute respiratory failure - Patient initially presented on BiPAP with VBG showing severe metabolic acidosis with pH 7.19 - Admission CXR showing bilateral consolidations and pleural effusions, L>R - Respiratory status improving and patient on 3-4L nasal cannula - CXR today showing persistent bibasilar effusions with no significant interval change 3. CHF exacerbation/fluid overload - Echo in September showed EF 25-30%. Repeat 2D echo report pending - Cardiology consulted - Improving and patient diuresing - Continue spironolactone and Lasix - On Levophed and dobutamine 4. Supratherapeutic INR - INR 8.7 - No signs of acute bleeding - 2 units FFP today - Continue to monitor 5. Thrombocytopenia - Acute during this admission likely secondary to septic shock and coagulopathy - No signs of active bleeding - Monitor closely 6. History of PE - INR supratherapeutic which is being held 7. Hypokalemia - Replete per ICU electrolyte protocol Chronic medical conditions: - Anxiety: Continue home Celexa 40 - Anemia: Continue home ferrous sulfate - Insomnia: Continue home Restoril FEN: - Fluids:Receiving volume through various drips and IV medications. Avoid additional secondary to cardiogenic shock - Eletrolytes: Replete per protocol - Nutrition: NPO for now until evaluated by CT surgery - GI prophylaxis: Protonix - DVT prophylaxis: INR supratherapeutic dw Dr. Pires and Dr. Damico Discharge Planning Unclear discharge timetable right now. (Delfina Bojorquez MD) Attending Attestation Patient seen and examined. Case reviewed and discussed with the resident team. Agree with plan of care as discussed with me and documented in the resident note. (Gladys Pires MD) Problem List: (1) Septic shock Status: Acute (2) Gram-positive bacteremia Status: Acute (3) Chronic systolic (congestive) heart failure Status: Chronic (4) Acute respiratory failure Status: Resolved (5) Thrombocytopenia Status: Acute (6) CHF exacerbation Status: Acute (7) Hepatitis C Status: Chronic (eDlfina Bojorquez MD) Problem Qualifiers (1) Acute respiratory failure: Qualified Code: J96.01 - Acute respiratory failure with hypoxia (2) Hepatitis C: Qualified Code: B18.2 - Chronic hepatitis C without hepatic coma Delfina Bojorquez MD Nov 08, 2016 08:46 Gladys Pires MD Nov 10, 2016 14:23
[2016-11-08 09:00] LABS: BANDS 10 % (0-6); NEUTROPHIL # MANUAL DIFF 9.4 TH/MM3 (1.8-7.7); PLATELET ESTIMATE SMEAR LOW (NORMAL); PLATELET MORPHOLOGY NORMAL (NORMAL); POLYS (SEG NEUTROPHILS) 80 % (16-70); SCAN/DIFF FINAL DIFF MANUAL; WBC DIFF SAMPLE 100
[2016-11-08 09:01] LABS: OVALOCYTES 1+ (NORMAL); TARGET CELLS 1+ (NORMAL)
[2016-11-08 09:02] LABS: HOWELL-JOLLY BODIES PRESENT (NONE SEEN)
--- NOTE | 2016-11-08 09:44 | HHI.IDPN ---
Subjective Subjective Remarks Notes reviewed No fever Breathing is better, on nasal O2 Has been diuresing Feels better NO abdominal pain WBC now down to normal Echo done, pending BC no results yet Patient questioned again regarding IVDU - states last used was before her surgery She does not go out unless with her mom Lives with her mom, dad stays with her mom not at home Antibiotics Vanco Zosyn Lines Central line Past Medical History Hospitalization from October to December 2015 for infective endocarditis and subsequent complication Hospitalization June 22 to July 23 for CHF and cervical discitis She's had CVA with subarachnoid hemorrhage, embolic lesions to the brain lungs and spleen as a result of her endocarditis Known IV drug use, patient states last time she used was prior to her hospitalization in August 2016 Bilateral sacroiliitis CVA with residual left-sided hemiplegia Past Surgical History Surgery on her discitis last July 09, 2016 AVR, MVR with tissue valve September 07, 2016 Allergies: Coded Allergies: *MDRO Multi-Drug Resistant Organism (Verified Adverse Reaction, Unknown, ) MRSA PCR screen POSITIVE- 10/18/2015 & 08/12/16 MRSA (urine, blood, 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 in sputum 2016 Objective . Vital Signs Date Time Temp Pulse Resp B/P Pulse Ox O2 Delivery O2 Flow Rate FiO2 11/08/16 06:00 78 11/08/16 04:00 79 11/08/16 04:00 96.8 79 14 111/77 100 11/08/16 02:00 77 11/08/16 00:00 73 11/08/16 00:00 96.1 73 16 116/69 100 11/07/16 22:00 73 11/07/16 21:38 100 Nasal Cannula 3.00 11/07/16 20:00 75 11/07/16 20:00 95.6 77 19 104/65 100 11/07/16 19:00 100 Nasal Cannula 4.00 11/07/16 18:00 76 11/07/16 16:18 100 Nasal Cannula 4.00 11/07/16 16:18 100 Nasal Cannula 4.00 11/07/16 16:12 100 40 11/07/16 16:00 97.2 76 26 86/52 100 11/07/16 16:00 76 11/07/16 14:00 74 11/07/16 12:49 100 40 11/07/16 12:00 96.3 74 20 88/50 100 11/07/16 12:00 74 11/07/16 10:10 98 40 11/07/16 10:00 72 11/07/16 11/07/16 11/08/16 15:00 23:00 07:00 Intake Total 1123 ml 1103 ml 662 ml Output Total 3600 ml 2000 ml 3000 ml Balance -2477 ml -897 ml -2338 ml Intake Oral 240 ml IV Total 1123 ml 863 ml 662 ml Output Urine Total 3600 ml 2000 ml 3000 ml # Bowel Movements 2 1 0 . Laboratory Tests Test 11/06/16 11/06/16 11/07/16 11/08/16 19:47 21:16 03:45 04:45 Erythrocyte Sedimentation Rate 2 mm/hr 8 mm/hr White Blood Count 27.4 TH/MM3 26.0 TH/MM3 10.4 TH/MM3 Red Blood Count 3.73 MIL/MM3 3.60 MIL/MM3 3.25 MIL/MM3 Hemoglobin 11.2 GM/DL 10.6 GM/DL 10.0 GM/DL Hematocrit 36.6 % 33.9 % 30.0 % Mean Corpuscular Volume 98.1 FL 94.1 FL 92.4 FL Mean Corpuscular Hemoglobin 29.9 PG 29.5 PG 30.9 PG Mean Corpuscular Hemoglobin 30.5 % 31.3 % 33.5 % Concent Red Cell Distribution Width 19.6 % 19.8 % 19.9 % Platelet Count 45 TH/MM3 36 TH/MM3 30 TH/MM3 Mean Platelet Volume 10.3 FL 9.5 FL 8.8 FL Neutrophils (%) (Auto) 92.5 % 92.5 % 84.3 % Lymphocytes (%) (Auto) 4.7 % 5.0 % 9.9 % Monocytes (%) (Auto) 2.7 % 2.1 % 5.1 % Eosinophils (%) (Auto) 0.0 % 0.0 % 0.4 % Basophils (%) (Auto) 0.1 % 0.4 % 0.3 % Neutrophils # (Auto) 25.3 TH/MM3 24.0 TH/MM3 8.8 TH/MM3 Lymphocytes # (Auto) 1.3 TH/MM3 1.3 TH/MM3 1.0 TH/MM3 Monocytes # (Auto) 0.7 TH/MM3 0.6 TH/MM3 0.5 TH/MM3 Eosinophils # (Auto) 0.0 TH/MM3 0.0 TH/MM3 0.0 TH/MM3 Basophils # (Auto) 0.0 TH/MM3 0.1 TH/MM3 0.0 TH/MM3 CBC Comment AUTO DIFF AUTO DIFF AUTO DIFF Differential Total Cells 100 100 100 Counted Neutrophils % (Manual) 80 % 73 % 80 % Band Neutrophils % 17 % 21 % 10 % Lymphocytes % 1 % 3 % 4 % Monocytes % 2 % 3 % 6 % Neutrophils # (Manual) 26.6 TH/MM3 24.4 TH/MM3 9.4 TH/MM3 Nucleated Red Blood Cells 2 /100 WBC Differential Comment AUTO DIFF FINAL DIFF FINAL DIFF CONFIRMED MANUAL MANUAL Toxic Granulation 1+ Toxic Vacuolation PRESENT Platelet Estimate LOW LOW LOW Platelet Morphology Comment NORMAL NORMAL NORMAL Ovalocytes 1+ 1+ Target Cells 1+ [place] Bodies PRESENT Laboratory Tests Test 11/06/16 11/06/16 11/06/16 11/07/16 19:47 21:16 23:00 03:45 Lactic Acid Level 10.0 mmol/L 6.0 mmol/L 1.9 mmol/L B-Type Natriuretic Peptide 2030 PG/ML Sodium Level 132 MEQ/L 137 MEQ/L Potassium Level 6.2 MEQ/L 3.8 MEQ/L Chloride Level 99 MEQ/L 101 MEQ/L Carbon Dioxide Level 16.3 MEQ/L 25.7 MEQ/L Anion Gap 17 MEQ/L 10 MEQ/L Blood Urea Nitrogen 44 MG/DL 43 MG/DL Creatinine 1.14 MG/DL 0.85 MG/DL Estimat Glomerular Filtration 57 ML/MIN 80 ML/MIN Rate Random Glucose 67 MG/DL 151 MG/DL Calcium Level 7.6 MG/DL 7.7 MG/DL Magnesium Level 2.4 MG/DL Total Bilirubin 2.8 MG/DL 3.2 MG/DL Aspartate Amino Transf 202 U/L 303 U/L (AST/SGOT) Alanine Aminotransferase 124 U/L 168 U/L (ALT/SGPT) Alkaline Phosphatase 169 U/L 148 U/L Total Creatine Kinase 65 U/L 58 U/L Troponin I 2.86 NG/ML 2.67 NG/ML Total Protein 6.2 GM/DL 5.9 GM/DL Albumin 2.3 GM/DL 2.3 GM/DL Lipase 105 U/L Human Chorionic Gonadotropin, LESS THAN 1 Quant MIU/ML Test 11/07/16 11/07/16 11/08/16 08:00 11:02 04:45 Total Creatine Kinase 54 U/L Troponin I 2.45 NG/ML C-Reactive Protein 6.80 MG/DL B-Type Natriuretic Peptide 3793 PG/ML Sodium Level 140 MEQ/L Potassium Level 2.5 MEQ/L Chloride Level 99 MEQ/L Carbon Dioxide Level 32.9 MEQ/L Anion Gap 8 MEQ/L Blood Urea Nitrogen 24 MG/DL Creatinine 0.61 MG/DL Estimat Glomerular Filtration 118 ML/MIN Rate Random Glucose 96 MG/DL Calcium Level 7.8 MG/DL Phosphorus Level 1.6 MG/DL Magnesium Level 1.6 MG/DL Total Bilirubin 2.9 MG/DL Aspartate Amino Transf 146 U/L (AST/SGOT) Alanine Aminotransferase 121 U/L (ALT/SGPT) Alkaline Phosphatase 105 U/L Total Protein 5.7 GM/DL Albumin 2.8 GM/DL Microbiology Date/Time Procedure Status Source Growth 11/06/16 20:45 Urine Culture - Preliminary Resulted Urine Catheterized Urine RESULTS PENDING 11/07/16 01:30 Aerobic Blood Culture Received Blood Line Pending 11/07/16 01:30 Anaerobic Blood Culture Received Blood Line Pending 11/07/16 01:30 Aerobic Blood Culture Received Blood Line Pending 11/07/16 01:30 Anaerobic Blood Culture Received Blood Line Pending 11/07/16 11:02 Aerobic Blood Culture Received Blood Peripheral Pending 11/07/16 11:02 Anaerobic Blood Culture Received Blood Peripheral Pending 11/07/16 11:05 Aerobic Blood Culture Received Blood Line Pending 11/07/16 11:05 Anaerobic Blood Culture Received Blood Line Pending Imaging Chest X-Ray 11/08/16 0600 Signed Impressions: Service Date/Time: October 02:25 - CONCLUSION: Persistent bibasilar effusions with associated airspace disease. No interval change. Milan Aguilar MD Lower Extremity Ultrasound 11/07/16 0000 Signed Impressions: Service Date/Time: Monday, November 07, 2016 09:33 - CONCLUSION: No DVT of the left lower extremity. Nonspecific subcutaneous edema. Mookie Scales MD Physical Exam GENERAL: awake and alert, comfortable on nasal O2 SKIN: Cool and dry. No generalized rash, no ecchymosis, no peripheral embolic lesions seen HEAD: Atraumatic. Normocephalic. No temporal or scalp tenderness. EYES: [place] conjunctivae, no petechia or hemorrhage. No scleral icterus. No injection or drainage. ENT: Nose without bleeding, or purulent drainage. Moist oral mucosa. NO oral thrush NECK: Trachea midline. No JVD or lymphadenopathy. Supple, nontender, no meningeal signs. CARDIOVASCULAR: Regular rate and rhythm. There is a systolic murmur heard on the whole left precordium and base of the heart. No pericardial rub heard. RESPIRATORY: Coarse breath sounds bilaterally. Decreased breath sounds at the bases. GASTROINTESTINAL: Abdomen soft, non-tender, nondistended. Bowel sounds are present and normoactive. No organomegaly. No guarding. MUSCULOSKELETAL: Extremities without clubbing, cyanosis, warm and well perfused. Has pitting edema on LLE. No joint tenderness. No calf tenderness. Negative Homans sign bilaterally. NEUROLOGICAL: Awake and alert. L hemiparesis, has some movement in her LLE but not in her LUE PSYCH: Cooperative LINE: Central line with no evidence of infection : Carter cath in place, urine looks clear Assessment & Plan Remarks IMPRESSION Respiratory failure, etiology? - CHF, has known low EF - ?new sepsis, ?new IE - had echo last Sep 21 with large pericardial effusion S/P AVR and MVR for severe AI and MR due to IE Episode of IE last year with complications Known IVDU RECOMMENDATION Follow C/S Await echo, may need ROSANGELA Continue Vanco Change Zosyn to Cefepime to decrease salt load Monitor progress Will determine Abx course once work-up and cultures available D/W Dr Damico ([facility]) I will be OOT 11/09-11/13 Other ID MD will be covering in my absence Kenia Parson MD Nov 08, 2016 09:44
--- NOTE | 2016-11-08 09:47 | HHI.CCPN ---
Subjective Remarks/Hospital Course 26 y/o s/p MVR, AVR September 03 for endocarditis. She continued to use iv drugs until mid-October. Presents now with gross fluid overload and hypoxemic respiratory failure, with severe sepsis 11/07/16: Patient remains in septic shock and respiratory failure, remains on dobutamine, Levophed added. Requiring BiPAP. White count slightly improved 26, 000 from [id number]. 2-D echo showed possible large vegetation on the prosthetic aortic valve 11/08/16: Currently remains on 1 mcg/m of Levophed, 2.5 mg per KG per minute of dobutamine. Breathing improved currently on 3 L nasal cannula. Urine output 8.6 L in 24 hours with diuresis. Chest x-ray shows persistent bilateral effusion. 2d Echo showing probable AV vegetation. Objective Vital Signs Date Time Temp Pulse Resp B/P Pulse Ox O2 Delivery O2 Flow Rate FiO2 11/08/16 06:00 78 11/08/16 04:00 96.8 14 111/77 100 11/07/16 21:38 Nasal Cannula 3.00 11/07/16 16:12 40 Intake and Output 11/07/16 11/07/16 11/08/16 08:00 16:00 00:00 Intake Total 203 ml 1123 ml 1103 ml Output Total 4350 ml 3600 ml 2000 ml Balance -4147 ml -2477 ml -897 ml Result Diagram: 11/08/16 0445 11/08/16 0445 Objective Remarks Gen: Remains critically ill on dobutamine and Levophed Head: Atraumatic normocephalic Neck: Supple, airway widely patent. Lungs: Diffuse crackles, at the bases. Tachypneic using some accessory muscles Heart: RRR, 3/6 systolic murmur in all areas predominantly in the aortic area Abdomen: Soft, nontender, moderately distended. No guarding. Extremities: Trace edema of the extremities Neuro: Oriented, alert follows commands on right. Left hemiparesis A/P Problem List: (1) Acute hypoxemic respiratory failure ICD Code: J96.01 Status: Acute (2) Prosthetic valve endocarditis ICD Code: T82.6XXA Status: Acute (3) Septic shock ICD Code: A41.9 Status: Acute Assessment and Plan Plan by systems: Neurologic: Acute on Chronic pain IV drug abuse, with relapse History of CVA with residual left-sided weakness --Minimize sedation, opiates --Watch for airway protection Respiratory: Acute hypoxic respiratory failure Bilateral pleural effusions History of Bilateral lower lobe subsegmental pulmonary embolism --Hypoxia secondary to pleural effusion, pulm edema --Use BiPAP PRN, now on NC --See ID section for broad-spectrum antibiotic 09/01 CT PE: bilateral lower lobe emboli, currently on Coumadin supratherapeutic INR on hold Cardiovascular: Prosthetic AV endocarditis Septic and cardiogenic shock Biventricular failure Fluid overload 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 Probable prosthetic aortic valve vegetation and high gradient Cardiology Dr. Blanc, plan for ROSANGELA in am --Cardiothoracic surgery consulted patient is not a candidate for valvular re do surgery due to active drug use --Admits to drug use 1 month ago- not sure PO or IV Reduce IV Lasix 40 mg every 12, add IV albumin 25 g IV every 12 --Aldactone 50 mg every 12 --Hold JG inhibitor and beta blockers --Continue dobutamine, and wean to DC Levophed, keep map above 65 Renal: Acute Kidney insufficiency Metabolic acidosis --Every hour urine outputs and strict I's and O's --Monitor renal function closely --Lasix IV as above, along with Aldactone GI: Acute protein calorie malnutrition Start heart healthy diet, NPO after midnight Heme: Subtherapeutic INR History of Bilateral lower lobe subsegmental pulmonary embolism History of nonocclusive left femoral vein DVT 08/20 -INR is supratherapeutic at 8.7. No evidence of bleeding. 2U FFP tomorrow -Repeat INR in a.m. Target around 3 to facilitate ROSANGELA ID: Probable prosthetic aortic valve vegetation Septic shock Previous MRSA endocarditis Cultures have been sent. ID consulted. --Continue vancomycin and DC Zosyn. Cefepime 2 gm IV q8. Cardiology cardiothoracic surgery consulted-not a surgical candidate Endocrine: -- Electrolyte replacement per protocol Prophylaxis: GI Prophylaxis Protonix 40 mg IV daily 24 hours DVT Prophylaxis -- SCDs Holding pharmacologic DVT prophylaxis due to supratherapeutic INR. Critical care 30 mins aside from procedures. Keri Damico MD Nov 08, 2016 09:47
[2016-11-08] MEDS: VANCOMYCIN INJ 1,000 MG in SODIUM CHLOR 0.9% 250 ML INJ 250 ML IV SCH (11:11)
--- NOTE | 2016-11-08 11:52 | PD.CONS ---
History of Present Illness Service CT Surgery Consult Requested By Dr. Blanc Reason for Consult Recurrent, now prosthetic valve endocarditis Primary Care Physician Abe Gray MD Diagnoses: (1) Prosthetic valve endocarditis (2) Chronic systolic (congestive) heart failure (3) Gram-positive bacteremia (4) history of IV drug abuse History of Present Illness Very unfortunate 26-year-old female presented to the hospital complaining of severe shortness of breath, leukocytosis, and gram positive bacteremia. Patient had a history of infective endocarditis last year which resulted in severe AI and MR. She has known IV drug use. She has also had numerous embolic events including a CVA. In August she presented with acute pulmonary edema, which was due to CHF. She had been culture negative for at least 3 months and subsequently underwent AVR/MVR with tissue valves September 07, 2016. She did well postoperatively, went to a rehabilitation facility, and subsequently discharged to home with her mother. She was seen in the office for follow-up and was noted to be poorly compliant withher medications. She claims that the last time she used IV drugs was prior to her hospitalization last August which is new information to me (she denies IVDA to me since her initial hospitalization over a year ago). Patient stated that she's been having shortness of breath over the last 2 weeks. It had progressively worsened and she presented to the hospital for further evaluation and treatment. ECHO on September 21 showed a well functioning aortic valve and mitral valve, her EF is reduced and ranges 25-30%, and she had a moderate to large loculated pericardial effusion identified at that time. There was no evidence of hemodynamic compromise. Review of Systems ROS Limitations: Clinical Condition Constitutional: COMPLAINS OF: Fatigue, Weight gain, Night Sweats, DENIES: Diaphoretic episodes, Fever, Weight loss, Chills, Dizziness, Change in appetite Endocrine: DENIES: Abnorml menstrual pattern, Heat/cold intolerance, Polydipsia , Polyuria, Polyphagia Eyes: DENIES: Blurred vision, Diplopia, Eye inflammation, Eye pain, Vision loss , Photosensitivity, Double Vision Ears, nose, mouth, throat: DENIES: Tinnitus, Hearing loss, Vertigo, Nasal discharge, Oral lesions, Throat pain, Hoarseness, Ear Pain, Running Nose, Epistaxis, Sinus Pain, Toothache, Odynophagia Respiratory: COMPLAINS OF: Cough, Shortness of breath, DENIES: Apneas, Snoring , Wheezing, Hemoptysis, Sputum production Cardiovascular: COMPLAINS OF: Chest pain, Dyspnea on Exertion, Lower Extremity Edema, DENIES: Palpitations, Syncope, PND, Orthopnea, Claudication Gastrointestinal: COMPLAINS OF: Abdominal pain, DENIES: Black stools, Bloody stools, Constipation, Diarrhea, Nausea, Vomiting, Difficulty Swallowing, Anorexia Genitourinary: DENIES: Abnormal vaginal bleeding, Dysmenorrhea, Dyspareunia, Sexual dysfunction, Urinary frequency, Urinary incontinence, Urgency, Hematuria , Dysuria, Nocturia, Vaginal discharge Musculoskeletal: COMPLAINS OF: Muscle aches Integumentary: DENIES: Abnormal pigmentation, Pruritus, Rash, Nail changes, Breast masses, Breast skin changes, Nipple discharge Hematologic/lymphatic: DENIES: Bruising, Lymphadenopathy Immunologic/allergic: DENIES: Eczema, Urticaria Neurologic: COMPLAINS OF: Abnormal gait, Localized weakness, Paresthesias, Speech Problems, Poor Balance, DENIES: Headache, Seizures, Tremor Psychiatric: DENIES: Anxiety, Confusion, Mood changes, Depression, Hallucinations, Agitation, Suicidal Ideation, Homicidal Ideation, Delusions Except as stated in HPI: all other systems reviewed are Neg Past Family Social History Allergies: Coded Allergies: *MDRO Multi-Drug Resistant Organism (Verified Adverse Reaction, Unknown, ) MRSA PCR screen POSITIVE- 10/18/2015 & 08/12/16 MRSA (urine, blood, 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 in sputum 2015 Past Medical History PAST MEDICAL HISTORY 1. Infective endocarditis with subsequent complications. 2. Known congestive heart failure. 3. Embolic complications of endocarditis including CVA, septic emboli to the lungs, emboli to the spleen, cervical diskitis. History of IV drug abuse, states last time was prior to her hospitalization in August of 2016. 4. CVA with residual left-sided hemiplegia. 5. Previous echocardiogram (September 21, 2016) showing a moderate to large loculated pericardial effusion with no evidence of tamponade. 6. History of hepatitis C. PAST SURGICAL HISTORY 1. Aortic valve replacement (September 07, 2016) with a 19 mm Trifecta tissue valve. 2. Mitral valve replacement (September 07, 2016) with a 27 mm Mi Magna Ease tissue valve. 3. Diskitis surgery (July 09, 2016). ALLERGIES NO KNOWN DRUG ALLERGIES. MEDICATION 1. Ramipril 2.5 mg daily. 2. Coumadin 2.5 mg on Saturday, Saturday, , Saturday, 3 mg on Saturday, Saturday, Saturday. 3. Celexa 40 mg daily. 4. Restoril 7.5 mg every night as needed for insomnia. 5. Albuterol 2 puffs every 4-6 hours as needed. 6. Coreg 3.125 mg every 12 hours. 7. Iron 325 mg b.i.d. 8. Lasix 40 mg daily. 9. Percocet 5/325 every 8 hours as needed for pain. 10. Aspirin 81 mg daily. 11. Protonix 40 mg daily. SOCIAL HISTORY The patient lives with her parents. Previously smoked one pack per day. Has a history of IV drug abuse with last use being August 2016. FAMILY HISTORY Denies premature coronary artery disease or sudden cardiac within the family. Active Ordered Medications Current Medications Medications (Trade) Dose Ordered Sig/Nicky Route Start Time Stop Time Status Last Admin (NS Flush) 2 ml UNSCH PRN FLUSH 11/06/16 22:45 (NS Flush) 2 ml BID FLUSH 11/06/16 22:45 11/08/16 08:41 (Tylenol) 650 mg Q4H PRN PO 11/06/16 22:45 (Zofran Inj) 4 mg Q6H PRN IVP 11/06/16 22:45 (Colace) 100 mg Q12H PO 11/06/16 22:45 11/06/16 22:45 (Narcan Inj) 0.4 mg UNSCH PRN IV 11/06/16 22:45 (Proair Hfa Inh) 2 puff Q4HR PRN INH 11/06/16 23:00 (Coreg) 3.125 mg Q12HR PO 11/06/16 23:00 11/08/16 08:40 (CeleXA) 40 mg DAILY PO 11/07/16 09:00 11/08/16 08:40 (Colace) 100 mg BID PRN PO 11/06/16 23:00 (Ferrous Sulfate) 325 mg BID PO 11/07/16 09:00 11/08/16 08:40 ([place] 5-325 Mg) 1 tab Q8HR PRN PO 11/06/16 23:00 11/08/16 08:40 (Altace) 2.5 mg DAILY PO 11/07/16 09:00 11/08/16 08:41 (Restoril) 7.5 mg HS PRN PO 11/06/16 23:00 (Aspirin Chew) 81 mg DAILY PO 11/07/16 09:00 11/08/16 08:41 Pantoprazole Sodium 40 mg 40 mg Q24H IV PUSH 11/07/16 00:00 11/08/16 00:17 Dobutamine HCl/ Dextrose 250 ml @ 0 mls/hr Q0M IV 11/07/16 02:15 11/08/16 04:37 Pharmacy Profile Note 0 ml @ 0 mls/hr UNSCH OTHER 11/07/16 03:45 (Vancomycin Inj/ NS 250 ml Inj) 250 ml @ 250 mls/hr Q18H IV 11/07/16 16:00 11/08/16 11:11 Miscellaneous Information SPECIFIC LAB TO BE DRAWN:VANCOMYCIN TROUGH DATE TO... ONCE ONCE XX 11/09/16 03:45 11/09/16 03:46 (Levophed-Dextrose Drip) 250 ml @ 0 mls/hr TITRATE IV 11/07/16 12:00 (Albumin 25% Inj) 25 gm Q12H IV 11/07/16 15:00 11/08/16 02:54 Spironolactone 50 mg 50 mg BID@09,18 PO 11/07/16 18:00 11/08/16 08:36 Potassium Chloride 100 ml @ 50 mls/hr Q2H PRN IV 11/08/16 06:30 11/08/16 06:34 Potassium Chloride 100 ml @ 50 mls/hr Q2H PRN IV 11/08/16 06:30 Potassium Chloride 100 ml @ 25 mls/hr UNSCH PRN IV 11/08/16 06:30 Potassium Chloride 100 ml @ 50 mls/hr Q2H PRN IV 11/08/16 06:30 (Magnesium Sulfate Inj/NS Inj) 100 ml @ 50 mls/hr UNSCH PRN IV 11/08/16 06:30 Magnesium Oxide 800 mg 800 mg UNSCH PRN PO 11/08/16 06:30 (Magnesium Sulfate Inj/NS Inj) 100 ml @ 50 mls/hr UNSCH PRN IV 11/08/16 06:30 Potassium Phosphate 2000 mg 2,000 mg Q4H PRN PO 11/08/16 06:30 (Sodium Phosphate Inj/NS 250 ml Inj) 250 ml @ 42 mls/hr UNSCH PRN IV 11/08/16 06:30 Potassium Phosphate 2000 mg 2,000 mg UNSCH PRN PO/TUBE 11/08/16 06:30 (Potassium Phosphate Inj/NS 250 ml Inj) 260 ml @ 42 mls/hr UNSCH PRN IV 11/08/16 06:30 (Lasix Inj) 20 mg Q12H IV PUSH 11/08/16 21:00 Potassium Chloride 30 meq 30 meq DAILY PO 11/08/16 09:45 (Maxipime Inj/NS Inj) 100 ml @ 200 mls/hr Q8H IV 11/08/16 10:00 Physical Exam Vital Signs Vital Signs Date Time Temp Pulse Resp B/P Pulse Ox O2 Delivery O2 Flow Rate FiO2 11/08/16 10:00 78 11/08/16 08:00 79 11/08/16 07:00 Nasal Cannula 3.00 11/08/16 06:00 78 11/08/16 04:00 79 11/08/16 04:00 96.8 79 14 111/77 100 11/08/16 02:00 77 11/08/16 00:00 73 11/08/16 00:00 96.1 73 16 116/69 100 11/07/16 22:00 73 11/07/16 21:38 100 Nasal Cannula 3.00 11/07/16 20:00 75 11/07/16 20:00 95.6 77 19 104/65 100 11/07/16 19:00 100 Nasal Cannula 4.00 11/07/16 18:00 76 11/07/16 16:18 100 Nasal Cannula 4.00 11/07/16 16:18 100 Nasal Cannula 4.00 11/07/16 16:12 100 40 11/07/16 16:00 97.2 76 26 86/52 100 11/07/16 16:00 76 11/07/16 14:00 74 11/07/16 12:49 100 40 11/07/16 12:00 96.3 74 20 88/50 100 11/07/16 12:00 74 Physical Exam GENERAL: This is a well-nourished, well-developed patient, in no apparent distress. SKIN: No rashes, ecchymoses or lesions. Cool and dry. HEAD: Atraumatic. Normocephalic. No temporal or scalp tenderness. EYES: Pupils equal round and reactive. Extraocular motions intact. No scleral icterus. No injection or drainage. ENT: Nose without bleeding, purulent drainage or septal hematoma. Throat without erythema, tonsillar hypertrophy or exudate. Uvula midline. Airway patent. NECK: Trachea midline. No JVD or lymphadenopathy. Supple, nontender, no meningeal signs. CARDIOVASCULAR: Regular rate and rhythm without murmurs, gallops, or rubs. RESPIRATORY: Clear to auscultation. Breath sounds equal bilaterally. No wheezes , rales, or rhonchi. GASTROINTESTINAL: Abdomen soft, non-tender, nondistended. No hepato-splenomegaly , or palpable masses. No guarding. MUSCULOSKELETAL: Extremities without clubbing, cyanosis, or edema. No joint tenderness, effusion, or edema noted. No calf tenderness. Negative Homans sign bilaterally. NEUROLOGICAL: Awake and alert. Cranial nerves II through XII intact. Motor and sensory grossly within normal limits. Five out of 5 muscle strength in all muscle groups. Normal speech. Laboratory Laboratory Tests Test 11/08/16 11/08/16 04:45 09:30 White Blood Count 10.4 Red Blood Count 3.25 Hemoglobin 10.0 Hematocrit 30.0 Mean Corpuscular Volume 92.4 Mean Corpuscular Hemoglobin 30.9 Mean Corpuscular Hemoglobin 33.5 Concent Red Cell Distribution Width 19.9 Platelet Count 30 Mean Platelet Volume 8.8 Neutrophils (%) (Auto) 84.3 Lymphocytes (%) (Auto) 9.9 Monocytes (%) (Auto) 5.1 Eosinophils (%) (Auto) 0.4 Basophils (%) (Auto) 0.3 Neutrophils # (Auto) 8.8 Lymphocytes # (Auto) 1.0 Monocytes # (Auto) 0.5 Eosinophils # (Auto) 0.0 Basophils # (Auto) 0.0 CBC Comment AUTO DIFF Differential Total Cells 100 Counted Neutrophils % (Manual) 80 Band Neutrophils % 10 Lymphocytes % 4 Monocytes % 6 Neutrophils # (Manual) 9.4 Differential Comment FINAL DIFF MANUAL Platelet Estimate LOW Platelet Morphology Comment NORMAL Target Cells 1+ Ovalocytes 1+ [place] Bodies PRESENT Prothrombin Time 106.2 Prothromb Time International 8.7 Ratio Sodium Level 140 Potassium Level 2.5 Chloride Level 99 Carbon Dioxide Level 32.9 Anion Gap 8 Blood Urea Nitrogen 24 Creatinine 0.61 Estimat Glomerular Filtration 118 Rate Random Glucose 96 Calcium Level 7.8 Phosphorus Level 1.6 Magnesium Level 1.6 Total Bilirubin 2.9 Aspartate Amino Transf 146 (AST/SGOT) Alanine Aminotransferase 121 (ALT/SGPT) Alkaline Phosphatase 105 Total Protein 5.7 Albumin 2.8 Blood Bank Comment Date/Time Procedure Status Source Growth 11/07/16 11:05 Aerobic Blood Culture - Preliminary Resulted Blood Line NO GROWTH IN 1 DAY 11/07/16 11:05 Anaerobic Blood Culture - Preliminary Resulted Blood Line NO GROWTH IN 1 DAY 11/06/16 20:45 Urine Culture - Final Complete Urine Catheterized Urine 10-50,000 CFU/ML MIXED VIJAY... Result Diagram: 11/08/16 0445 11/08/16 0445 Imaging Last Impressions Chest X-Ray 11/08/16 0600 Signed Impressions: Service Date/Time: October 02:25 - CONCLUSION: Persistent bibasilar effusions with associated airspace disease. No interval change. Milan Aguilar MD Lower Extremity Ultrasound 11/07/16 0000 Signed Impressions: Service Date/Time: Monday, November 07, 2016 09:33 - CONCLUSION: No DVT of the left lower extremity. Nonspecific subcutaneous edema. Mookie Scales MD Course Patient was admitted and treated with dobutamine infusion and diuresed. She has clinically improved. By report, she has a new vegetation on her prosthetic aortic valve. She has positive blood cultures with GPC in pairs and chains. Further ID and sensitivities are pending. Assessment and Plan Problem List: (1) Gram-positive bacteremia Status: Acute (2) Prosthetic valve endocarditis Status: Acute (3) Chronic systolic (congestive) heart failure Status: Chronic (4) S/P AVR (aortic valve replacement) Status: Acute (5) S/P MVR (mitral valve replacement) Status: Acute (6) history of IV drug abuse Status: Chronic Assessment and Plan 26 y/o female with long h/o IV drug use s/p recent AVR/MVR with tissue valves presents with CHF, sepsis, and a new aortic valve vegetation. Prosthetic valve endocarditis is exceedingly rare following valve replacement in the general population. Based on her history and behavior postoperatively, I have to question ongoing IV drug use. In any case, reoperative cardiac surgery is completely out of the question as the risks outweigh any benefits and would be futile in terms of seeding a new replacement valve. Recommend medical and supportive care. I will not follow her as I have nothing more to offer her. I informed her of these findings and my recommendations. Problem Qualifiers (1) Prosthetic valve endocarditis: Qualified Code: T82.6XXA - Prosthetic valve endocarditis, initial encounter Ale Meier MD Nov 08, 2016 11:52
[2016-11-08] MEDS: DOCUSATE SODIUM 100 MG CAP PO SCH ×2 (11:53→20:26)
[2016-11-08] MEDS: POTASSIUM CHLORIDE 10 MEQ CONTROLLED RELEASE TAB PO SCH (11:53)
[2016-11-08] MEDS: CEFEPIME INJ 2,000 MG in SODIUM CHLORIDE 0.9% INJ 100 ML IV SCH ×2 (12:44→18:46)
--- NOTE | 2016-11-08 12:49 | PD.CARD.PN ---
Subjective Subjective Remarks No chest pain, no subjective fevers/chills over night Objective Medications Current Medications Medications (Trade) Dose Ordered Sig/Nicky Route Start Time Stop Time Status Last Admin (NS Flush) 2 ml UNSCH PRN FLUSH 11/06/16 22:45 (NS Flush) 2 ml BID FLUSH 11/06/16 22:45 11/08/16 08:41 (Tylenol) 650 mg Q4H PRN PO 11/06/16 22:45 (Zofran Inj) 4 mg Q6H PRN IVP 11/06/16 22:45 (Colace) 100 mg Q12H PO 11/06/16 22:45 11/08/16 11:53 (Narcan Inj) 0.4 mg UNSCH PRN IV 11/06/16 22:45 (Proair Hfa Inh) 2 puff Q4HR PRN INH 11/06/16 23:00 (Coreg) 3.125 mg Q12HR PO 11/06/16 23:00 11/08/16 08:40 (CeleXA) 40 mg DAILY PO 11/07/16 09:00 11/08/16 08:40 (Colace) 100 mg BID PRN PO 11/06/16 23:00 (Ferrous Sulfate) 325 mg BID PO 11/07/16 09:00 11/08/16 08:40 ([place] 5-325 Mg) 1 tab Q8HR PRN PO 11/06/16 23:00 11/08/16 08:40 (Altace) 2.5 mg DAILY PO 11/07/16 09:00 11/08/16 08:41 (Restoril) 7.5 mg HS PRN PO 11/06/16 23:00 (Aspirin Chew) 81 mg DAILY PO 11/07/16 09:00 11/08/16 08:41 Pantoprazole Sodium 40 mg 40 mg Q24H IV PUSH 11/07/16 00:00 11/08/16 00:17 Dobutamine HCl/ Dextrose 250 ml @ 0 mls/hr Q0M IV 11/07/16 02:15 11/08/16 04:37 Pharmacy Profile Note 0 ml @ 0 mls/hr UNSCH OTHER 11/07/16 03:45 (Vancomycin Inj/ NS 250 ml Inj) 250 ml @ 250 mls/hr Q18H IV 11/07/16 16:00 11/08/16 11:11 Miscellaneous Information SPECIFIC LAB TO BE DRAWN:VANCOMYCIN TROUGH DATE TO... ONCE ONCE XX 11/09/16 03:45 11/09/16 03:46 (Levophed-Dextrose Drip) 250 ml @ 0 mls/hr TITRATE IV 11/07/16 12:00 (Albumin 25% Inj) 25 gm Q12H IV 11/07/16 15:00 11/08/16 02:54 Spironolactone 50 mg 50 mg BID@09,18 PO 11/07/16 18:00 11/08/16 08:36 Potassium Chloride 100 ml @ 50 mls/hr Q2H PRN IV 11/08/16 06:30 11/08/16 06:34 Potassium Chloride 100 ml @ 50 mls/hr Q2H PRN IV 11/08/16 06:30 Potassium Chloride 100 ml @ 25 mls/hr UNSCH PRN IV 11/08/16 06:30 Potassium Chloride 100 ml @ 50 mls/hr Q2H PRN IV 11/08/16 06:30 (Magnesium Sulfate Inj/NS Inj) 100 ml @ 50 mls/hr UNSCH PRN IV 11/08/16 06:30 Magnesium Oxide 800 mg 800 mg UNSCH PRN PO 11/08/16 06:30 (Magnesium Sulfate Inj/NS Inj) 100 ml @ 50 mls/hr UNSCH PRN IV 11/08/16 06:30 Potassium Phosphate 2000 mg 2,000 mg Q4H PRN PO 11/08/16 06:30 (Sodium Phosphate Inj/NS 250 ml Inj) 250 ml @ 42 mls/hr UNSCH PRN IV 11/08/16 06:30 Potassium Phosphate 2000 mg 2,000 mg UNSCH PRN PO/TUBE 11/08/16 06:30 (Potassium Phosphate Inj/NS 250 ml Inj) 260 ml @ 42 mls/hr UNSCH PRN IV 11/08/16 06:30 (Lasix Inj) 20 mg Q12H IV PUSH 11/08/16 21:00 Potassium Chloride 30 meq 30 meq DAILY PO 11/08/16 09:45 11/08/16 11:53 (Maxipime Inj/NS Inj) 100 ml @ 200 mls/hr Q8H IV 11/08/16 10:00 11/08/16 12:44 Vital Signs / I&O Vital Signs Date Time Temp Pulse Resp B/P Pulse Ox O2 Delivery O2 Flow Rate FiO2 11/08/16 12:00 85 11/08/16 12:00 97.3 85 20 103/69 99 11/08/16 10:00 78 11/08/16 08:00 79 11/08/16 08:00 97.5 83 22 108/74 100 11/08/16 07:00 Nasal Cannula 3.00 11/08/16 06:00 78 11/08/16 04:00 79 11/08/16 04:00 96.8 79 14 111/77 100 11/08/16 02:00 77 11/08/16 00:00 73 11/08/16 00:00 96.1 73 16 116/69 100 11/07/16 22:00 73 11/07/16 21:38 100 Nasal Cannula 3.00 11/07/16 20:00 75 11/07/16 20:00 95.6 77 19 104/65 100 11/07/16 19:00 100 Nasal Cannula 4.00 11/07/16 18:00 76 11/07/16 16:18 100 Nasal Cannula 4.00 11/07/16 16:18 100 Nasal Cannula 4.00 11/07/16 16:12 100 40 11/07/16 16:00 97.2 76 26 86/52 100 11/07/16 16:00 76 11/07/16 14:00 74 11/07/16 12:49 100 40 I/O 11/07/16 11/07/16 11/07/16 11/08/16 11/08/16 11/08/16 07:00 15:00 23:00 07:00 15:00 23:00 Intake Total 203 ml 1123 ml 1103 ml 662 ml Output Total 4350 ml 3600 ml 2000 ml 3000 ml Balance -4147 ml -2477 ml -897 ml -2338 ml Intake Oral 240 ml IV Total 203 ml 1123 ml 863 ml 662 ml Output Urine Total 4350 ml 3600 ml 2000 ml 3000 ml # Voids 0 # Bowel Movements 2 1 0 Physical Exam GENERAL: Chronically ill appearing, NAD, AAOx3 SKIN: Warm and dry. HEAD: Atraumatic. Normocephalic. EYES: Pupils equal and round. No scleral icterus. No injection or drainage. ENT: No nasal bleeding or discharge. Mucous membranes pink and moist. NECK: Trachea midline. No JVD. CARDIOVASCULAR: Regular rate and rhythm. RESPIRATORY: No accessory muscle use. Decreased breath sounds bilaterally GASTROINTESTINAL: Abdomen soft, non-tender, nondistended. Hepatic and splenic margins not palpable. MUSCULOSKELETAL: Extremities without clubbing, cyanosis, or edema. No obvious deformities. NEUROLOGICAL: Awake and alert. No obvious cranial nerve deficits. Left sided weakness PSYCHIATRIC: Appropriate mood and affect; insight and judgment normal. Laboratory Laboratory Tests Test 11/08/16 11/08/16 04:45 09:30 White Blood Count 10.4 TH/MM3 Red Blood Count 3.25 MIL/MM3 Hemoglobin 10.0 GM/DL Hematocrit 30.0 % Mean Corpuscular Volume 92.4 FL Mean Corpuscular Hemoglobin 30.9 PG Mean Corpuscular Hemoglobin 33.5 % Concent Red Cell Distribution Width 19.9 % Platelet Count 30 TH/MM3 Mean Platelet Volume 8.8 FL Neutrophils (%) (Auto) 84.3 % Lymphocytes (%) (Auto) 9.9 % Monocytes (%) (Auto) 5.1 % Eosinophils (%) (Auto) 0.4 % Basophils (%) (Auto) 0.3 % Neutrophils # (Auto) 8.8 TH/MM3 Lymphocytes # (Auto) 1.0 TH/MM3 Monocytes # (Auto) 0.5 TH/MM3 Eosinophils # (Auto) 0.0 TH/MM3 Basophils # (Auto) 0.0 TH/MM3 CBC Comment AUTO DIFF Differential Total Cells 100 Counted Neutrophils % (Manual) 80 % Band Neutrophils % 10 % Lymphocytes % 4 % Monocytes % 6 % Neutrophils # (Manual) 9.4 TH/MM3 Differential Comment FINAL DIFF MANUAL Platelet Estimate LOW Platelet Morphology Comment NORMAL Target Cells 1+ Ovalocytes 1+ Funk-Hersey Bodies PRESENT Prothrombin Time 106.2 SEC Prothromb Time International 8.7 RATIO Ratio Sodium Level 140 MEQ/L Potassium Level 2.5 MEQ/L Chloride Level 99 MEQ/L Carbon Dioxide Level 32.9 MEQ/L Anion Gap 8 MEQ/L Blood Urea Nitrogen 24 MG/DL Creatinine 0.61 MG/DL Estimat Glomerular Filtration 118 ML/MIN Rate Random Glucose 96 MG/DL Calcium Level 7.8 MG/DL Phosphorus Level 1.6 MG/DL Magnesium Level 1.6 MG/DL Total Bilirubin 2.9 MG/DL Aspartate Amino Transf 146 U/L (AST/SGOT) Alanine Aminotransferase 121 U/L (ALT/SGPT) Alkaline Phosphatase 105 U/L Total Protein 5.7 GM/DL Albumin 2.8 GM/DL Blood Bank Comment Assessment and Plan Problem List: (1) S/P AVR (aortic valve replacement) (2) S/P MVR (mitral valve replacement) (3) CHF exacerbation (4) Gram-positive bacteremia (5) Acute respiratory failure (6) Prosthetic valve endocarditis (7) Chronic systolic (congestive) heart failure (8) Elevated troponin (9) Anemia (10) Hx of cerebral embolic infarction (11) History of endocarditis (12) history of IV drug abuse (13) Hepatitis C (14) Thrombocytopenia Assessment and Plan 1) Echo showing mobile structure on the bioprosthetic AVR concerning for endocarditis which would fit with her sepsis picture 2) Discussed with CT surgery, not a repeat surgery candidate 3) Discussed with critical care about possible ROSANGELA for definitive diagnosis, will await blood cultures, if positive then would probably not do ROSANGELA would just treat as such... will need FFP and probably platelets Problem Qualifiers (1) Acute respiratory failure: Qualified Code: J96.01 - Acute respiratory failure with hypoxia (2) Prosthetic valve endocarditis: Qualified Code: T82.6XXA - Prosthetic valve endocarditis, initial encounter (3) Anemia: Qualified Code: D64.9 - Anemia, unspecified type (4) Hepatitis C: Qualified Code: B18.2 - Chronic hepatitis C without hepatic coma Pete Blanc DO Nov 08, 2016 12:49
[2016-11-08] MEDS ORDERED: WARFARIN SOD 2.5 MG TAB PO SCH (16:00)
[2016-11-08 22:54] LABS: MAGNESIUM 1.8 MG/DL (1.5-2.5); POTASSIUM 3.6 MEQ/L (3.5-5.1)
[2016-11-09] VITALS (18 sets, daily range): BP systolic 103–126; BP diastolic 67–84; PULSE 76–132; RESP 16–30; TEMP 97.5–101.1; O2SAT 91–100
[2016-11-09] MEDS: CEFEPIME INJ 2,000 MG in SODIUM CHLORIDE 0.9% INJ 100 ML IV SCH ×2 (01:43→09:26)
[2016-11-09] MEDS: DOBUTamine 250 MG/D5W 250 ML PREMIX DRIP IV SCH ×2 (02:33→04:30)
[2016-11-09] MEDS: ALBUMIN HUMAN 25% 25 GM/100 ML BAGP IV SCH ×2 (02:33→16:00)
[2016-11-09] MEDS ORDERED: PHARMACY ORDERED LAB XX ONE (03:45)
[2016-11-09 04:04] LABS: AUTOMATED NEUTROPHIL # 6.3 TH/MM3 (1.8-7.7); BASOPHIL % 0.5 % (0.0-2.0); EOSINOPHIL # 0.1 TH/MM3 (0-0.4); EOSINOPHIL % 0.7 % (0.0-4.0); HEMATOCRIT 29.6 % (35.0-46.0); LYMPH % 15.8 % (9.0-44.0); LYMPHOCYTE # 1.3 TH/MM3 (1.0-4.8); MEAN CELL VOLUME 92.9 FL (80.0-100.0); MEAN CORPUSCULAR HEMOGLOBIN 30.6 PG (27.0-34.0); MEAN CORPUSCULAR HGB CONC 32.9 % (32.0-36.0); MONO % 6.5 % (0.0-8.0); NEUT % 76.5 % (16.0-70.0); PLATELET COUNT 31 TH/MM3 (150-450); RED BLOOD COUNT 3.19 MIL/MM3 (4.00-5.30); RED CELL DISTRIBUTION WIDTH 20.3 % (11.6-17.2); WHITE BLOOD COUNT 8.2 TH/MM3 (4.0-11.0)
[2016-11-09 04:07] LABS: HEMO FLAGS AUTO DIFF
[2016-11-09 04:14] LABS: INTERNATIONAL NORMALIZED RATIO 5.5 RATIO; PROTHROMBIN TIME - PATIENT 65.9 SEC (9.8-11.6)
[2016-11-09] MEDS: VANCOMYCIN INJ 1,000 MG in SODIUM CHLOR 0.9% 250 ML INJ 250 ML IV SCH (04:32)
[2016-11-09 04:39] LABS: ANION GAP 7 MEQ/L (5-15); AST (GOT) 95 U/L (15-37); BICARBONATE 33.2 MEQ/L (21.0-32.0); BLOOD UREA NITROGEN 16 MG/DL (7-18); CHLORIDE 100 MEQ/L (98-107); GLOMERULAR FILTRATION RATE 133 ML/MIN (>89); POTASSIUM 3.7 MEQ/L (3.5-5.1); SODIUM (NA) 140 MEQ/L (136-145)
[2016-11-09 04:40] LABS: ALKALINE PHOSPHATASE 97 U/L (45-117); ALT (GPT) 97 U/L (10-53); TOTAL BILIRUBIN ADULT 2.4 MG/DL (0.2-1.0)
[2016-11-09 07:00] LABS: OVALOCYTES 1+ (NORMAL); PLATELET ESTIMATE SMEAR LOW (NORMAL); PLATELET MORPHOLOGY NORMAL (NORMAL); SCAN/DIFF AUTO DIFF CONFIRMED; TARGET CELLS 1+ (NORMAL)
--- NOTE | 2016-11-09 08:14 | HHI.FPPN ---
Subjective Remarks Pt seen and examined this morning. (Delfina Bojorquez MD) Objective Vitals Vital Signs Date Time Temp Pulse Resp B/P Pulse Ox O2 Delivery O2 Flow Rate FiO2 11/09/16 07:00 Nasal Cannula 2.00 11/09/16 06:00 82 11/09/16 04:00 78 11/09/16 04:00 98.1 78 26 118/83 100 11/09/16 02:00 81 11/09/16 00:14 94 21 11/09/16 00:00 81 11/09/16 00:00 97.5 76 17 112/67 100 11/08/16 22:00 78 11/08/16 20:00 77 11/08/16 20:00 97.2 77 29 101/62 100 11/08/16 19:00 100 Nasal Cannula 2.00 11/08/16 18:00 84 11/08/16 16:00 97.3 75 17 87/53 99 11/08/16 16:00 75 11/08/16 14:00 85 11/08/16 13:33 98 Nasal Cannula 3.00 11/08/16 12:00 85 11/08/16 12:00 97.3 85 20 103/69 99 11/08/16 10:00 78 I/O 11/08/16 11/08/16 11/08/16 11/09/16 11/09/16 11/09/16 07:00 15:00 23:00 07:00 15:00 23:00 Intake Total 662 ml 1949 ml 577 ml 1400 ml Output Total 3000 ml 1750 ml 1200 ml 700 ml Balance -2338 ml 199 ml -623 ml 700 ml Intake Oral 300 ml 350 ml 240 ml IV Total 662 ml 1008 ml 227 ml 1160 ml FFP 641 ml Output Urine Total 3000 ml 1750 ml 1200 ml 700 ml # Bowel Movements 0 0 1 1 (Delfina Bojorquez MD) Result Diagram: 11/09/1634411/09/16344 Objective Remarks GENERAL: female laying in bed in NAD. SKIN: Warm and dry. R subclavian central line with no surrounding erythema. HEENT: AT/NC. Pupils equal and round. MMM. HEART: RRR with 3/6 LARRY heard throughout. LUNGS: Anterior lung sounds clear to auscultation. ABDOMEN: Soft, NT, ND. No guarding or rebound. EXTREMITIES: No significant LE edema. NEURO: Awake and alert. Left-sided hemiparesis. 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 Critical care managing the patient. Infectious disease, cardiology, and and CT surgery also consulted. Patient with / LARRY suggestive of recurrent endocarditis; 2D suggestive of AV valve vegetation but patient needs ROSANGELA and her INR needs to stabilize since she came in at 8.8. She is on IV Vancomycin and Cefepime. Patient's condition is poor but slightly improving as her leukocytosis has resolved and she is now on 3-4L nasal cannula. 1. Severe sepsis/septic shock from Strep viridans bacteremia and suspected infective endocarditis - Patient presented with tachycardia, tachypnea, leukocytosis with white count 27.4, and lactic acid 10.0 with evidence of end-organ dysfunction including NITISH , transaminitis, and elevated troponins - 11/05 systolic ejection murmur suggestive of possible recurrent infective endocarditis though patient denies drug use since August before her AV and MV replacements - 2D echo suggestive of AV vegetation - Line and blood cultures growing Strep viridans - Repeat blood culture ordered - ID managing antibiotics * Continue IV vanco (started 11/06) * Started IV PCN today - Continues to be on dobutamine and Levophed - ID, critical care, and cardiology consulted; appreciate their expertise 2. Acute respiratory failure - Patient initially presented on BiPAP with VBG showing severe metabolic acidosis with pH 7.19 - Admission CXR showing bilateral consolidations and pleural effusions, L>R - Respiratory status improving and patient on 2L nasal cannula - CXR yesterday showing persistent bibasilar effusions with no significant interval change 3. CHF exacerbation/fluid overload - 2D echo with EF 20-25% - Cardiology assisting with case - Continue to diurese >3L UOP in past 24 hours - Continue spironolactone and Lasix - Off Levophed; still on dobutamine - Home carvedilol and Ramipril 4. Supratherapeutic INR - INR 5.5 after 2 units FFP. Since not doing ROSANGELA will hold off on further FFP since patient not actively bleeding - Continue to monitor 5. Thrombocytopenia - Acute during this admission likely secondary to septic shock and coagulopathy - No signs of active bleeding - Monitor closely 6. History of PE - INR supratherapeutic which is being held Chronic medical conditions: - Anxiety: Continue home Celexa 40 - Anemia: Continue home ferrous sulfate - Insomnia: Continue home Restoril FEN: - Fluids:Receiving volume through various drips and IV medications. Avoid additional secondary to cardiogenic shock - Eletrolytes: Replete per protocol - Nutrition: Heart healthy diet - GI prophylaxis: Protonix - DVT prophylaxis: INR supratherapeutic dw Dr. Pires Discharge Planning Unclear discharge timetable right now. (Delfina Bojorquez MD) Attending Attestation Patient seen and examined. Case reviewed and discussed with the resident team. Agree with plan of care as discussed with me and documented in the resident note. ms Barrios reports feeling better and wants to eat. When asked about and dental problems, she denied this. (Gladys Pires MD) Problem List: (1) Septic shock Status: Acute (2) Gram-positive bacteremia Status: Acute (3) Chronic systolic (congestive) heart failure Status: Chronic (4) Acute respiratory failure Status: Resolved (5) Thrombocytopenia Status: Acute (6) CHF exacerbation Status: Acute (7) Hepatitis C Status: Chronic (Delfina Bojorquez MD) Problem Qualifiers (1) Acute respiratory failure: Qualified Code: J96.01 - Acute respiratory failure with hypoxia (2) Hepatitis C: Qualified Code: B18.2 - Chronic hepatitis C without hepatic coma Delfina Bojorquez MD Nov 09, 2016 08:14 Gladys Pires MD Nov 10, 2016 14:25
[2016-11-09] MEDS: CARVEDILOL 3.125 MG TAB PO SCH ×2 (09:25→21:39)
[2016-11-09] MEDS: POTASSIUM CHLORIDE 10 MEQ CONTROLLED RELEASE TAB PO SCH (09:25)
[2016-11-09] MEDS: CITALOPRAM HYDROBROMIDE 40 MG TAB PO SCH (09:25)
[2016-11-09] MEDS: ASPIRIN 81 MG CHEW TAB PO SCH (09:25)
[2016-11-09] MEDS: RAMIPRIL 2.5 MG CAP PO SCH (09:25)
[2016-11-09] MEDS: SPIRONOLACTONE 50 MG TAB PO SCH ×2 (09:25→17:02)
[2016-11-09] MEDS: FERROUS SULFATE 325 MG (65 MG ELEMENTAL IRON) TAB PO SCH ×2 (09:25→21:39)
[2016-11-09] MEDS: FUROSEMIDE 40 MG/4 ML VIAL IV PUSH SCH ×2 (09:26→21:39)
[2016-11-09] MEDS: SODIUM CHLORIDE 0.9% FLUSH 5 ML FLUSH FLUSH SCH ×2 (09:26→21:00)
[2016-11-09] MEDS: ACETAMINOPHEN/HYDROcodone 325 MG/5 MG TAB PO PRN ×2 (09:48→17:02)
[2016-11-09] MEDS: DOCUSATE SODIUM 100 MG CAP PO SCH ×2 (09:48→22:45)
[2016-11-09] MEDS: RESP: ALBUTEROL 2.5 MG/IPRATROPIUM 0.5 MG NEB (SCH) NEB ×3 (11:00→21:28)
--- NOTE | 2016-11-09 11:01 | HHI.CCPN ---
Subjective Remarks/Hospital Course 26 y/o s/p MVR, AVR September 03 for endocarditis. She continued to use iv drugs until mid-October. Presents now with gross fluid overload and hypoxemic respiratory failure, with severe sepsis 11/07/16: Patient remains in septic shock and respiratory failure, remains on dobutamine, Levophed added. Requiring BiPAP. White count slightly improved 26, 000 from 20703. 2-D echo showed possible large vegetation on the prosthetic aortic valve 11/08/16: Currently remains on 1 mcg/m of Levophed, 2.5 mg per KG per minute of dobutamine. Breathing improved currently on 3 L nasal cannula. Urine output 8.6 L in 24 hours with diuresis. Chest x-ray shows persistent bilateral effusion. 2d Echo showing probable AV vegetation. 11/09 Patient is off Levophed. Remains on dobutamine. Afebrile. Awake and alert on 2L oxygen. Objective Vital Signs Date Time Temp Pulse Resp B/P Pulse Ox O2 Delivery O2 Flow Rate FiO2 11/09/16 10:00 95 11/09/16 08:00 98.7 23 113/81 99 11/09/16 07:54 Nasal Cannula 2.00 11/09/16 00:14 21 Intake and Output 11/08/16 11/08/16 11/09/16 08:00 16:00 00:00 Intake Total 662 ml 1949 ml 577 ml Output Total 3000 ml 1750 ml 1200 ml Balance -2338 ml 199 ml -623 ml Result Diagram: 11/09/16 0345 11/09/16 0345 Other Results Laboratory Tests Test 11/08/16 11/09/16 11/09/16 21:21 03:45 07:25 Potassium Level 3.6 MEQ/L 3.7 MEQ/L Phosphorus Level 1.7 MG/DL Magnesium Level 1.8 MG/DL White Blood Count 8.2 TH/MM3 Red Blood Count 3.19 MIL/MM3 Hemoglobin 9.8 GM/DL Hematocrit 29.6 % Mean Corpuscular Volume 92.9 FL Mean Corpuscular Hemoglobin 30.6 PG Mean Corpuscular Hemoglobin 32.9 % Concent Red Cell Distribution Width 20.3 % Platelet Count 31 TH/MM3 Mean Platelet Volume 9.5 FL Neutrophils (%) (Auto) 76.5 % Lymphocytes (%) (Auto) 15.8 % Monocytes (%) (Auto) 6.5 % Eosinophils (%) (Auto) 0.7 % Basophils (%) (Auto) 0.5 % Neutrophils # (Auto) 6.3 TH/MM3 Lymphocytes # (Auto) 1.3 TH/MM3 Monocytes # (Auto) 0.5 TH/MM3 Eosinophils # (Auto) 0.1 TH/MM3 Basophils # (Auto) 0.0 TH/MM3 CBC Comment AUTO DIFF Differential Comment AUTO DIFF CONFIRMED Platelet Estimate LOW Platelet Morphology Comment NORMAL Target Cells 1+ Ovalocytes 1+ Prothrombin Time 65.9 SEC Prothromb Time International 5.5 RATIO Ratio Sodium Level 140 MEQ/L Chloride Level 100 MEQ/L Carbon Dioxide Level 33.2 MEQ/L Anion Gap 7 MEQ/L Blood Urea Nitrogen 16 MG/DL Creatinine 0.55 MG/DL Estimat Glomerular Filtration 133 ML/MIN Rate Random Glucose 107 MG/DL Calcium Level 8.1 MG/DL Total Bilirubin 2.4 MG/DL Aspartate Amino Transf 95 U/L (AST/SGOT) Alanine Aminotransferase 97 U/L (ALT/SGPT) Alkaline Phosphatase 97 U/L Total Protein 6.3 GM/DL Albumin 3.4 GM/DL Vancomycin Level Trough 11.9 MCG/ML Blood Bank Comment Imaging Last Impressions Chest X-Ray 11/08/16 0600 Signed Impressions: Service Date/Time: October 02:25 - CONCLUSION: Persistent bibasilar effusions with associated airspace disease. No interval change. Milan Aguilar MD Lower Extremity Ultrasound 11/07/16 0000 Signed Impressions: Service Date/Time: Monday, November 07, 2016 09:33 - CONCLUSION: No DVT of the left lower extremity. Nonspecific subcutaneous edema. Mookie Scales MD Objective Remarks GENERAL: Patient is 26 yo critically ill on dobutamine. SKIN: Warm and dry. HEAD: Normocephalic. EYES: No scleral icterus. No injection or drainage. NECK: Supple, trachea midline. No JVD or lymphadenopathy. CARDIOVASCULAR: Regular rate and rhythm , 3/6 Systolic murmur in apex and aortic area RESPIRATORY: Breath sounds equal bilaterally. No accessory muscle use. GASTROINTESTINAL: Abdomen soft, non-tender, nondistended. MUSCULOSKELETAL: No cyanosis, or edema. Neuro: Awake and alert A/P Problem List: (1) Acute hypoxemic respiratory failure ICD Code: J96.01 Status: Acute (2) Prosthetic valve endocarditis ICD Code: T82.6XXA Status: Acute (3) Septic shock ICD Code: A41.9 Status: Acute Assessment and Plan Plan by systems: Neurologic: Acute on Chronic pain IV drug abuse, with relapse History of CVA with residual left-sided weakness --Awake and alert --Monitor neuro status and avoid sedatives Respiratory: Acute hypoxic respiratory failure Bilateral pleural effusions History of Bilateral lower lobe subsegmental pulmonary embolism --Continue with oxygen keep sat >92% --Bronchodilators, NIPPV PRN 09/01 CT PE: bilateral lower lobe emboli, currently on Coumadin supratherapeutic INR 5.5 today from 8.7 Cardiovascular: Prosthetic AV endocarditis Septic and cardiogenic shock Biventricular failure Fluid overload 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 Blanc, --Cardiothoracic surgery consulted patient is not a candidate for valvular re do surgery due to active drug use IV Lasix 20 mg every 12, IV albumin 25 g IV every 12 --Aldactone 50 mg every 12 --Off Levophed, wean off dobutamine keep map >65mmHg. On ASA, Ramipril 2.5mg daily, Coreg 3.125mg BID Renal: Acute Kidney insufficiency Metabolic acidosis --Monitor renal function, I/O's, electrolytes replacement as needed -On Lasix 20mg Q12, Aldactone 50mg BID, KCl 30meq daily, Albumin 25gms Q12 GI: Acute protein calorie malnutrition -Elevated LFT's...trending down On heart healthy diet, --Monitor LFT's. Heme: Supratherapeutic INR History of Bilateral lower lobe subsegmental pulmonary embolism History of nonocclusive left femoral vein DVT 08/20 Anemia, Thrombocytopenia -INR is supratherapeutic at 5.5 today No evidence of bleeding. -Monitor CBC coags ID: Gram positive Bacteremia Probable prosthetic aortic valve vegetation Septic shock Previous MRSA endocarditis --Continue vancomycin, Cefepime 2 gm IV q8. Cardiology cardiothoracic surgery consulted-not a surgical candidate --ID is following, recheck BC x 2 sets today Endocrine: -- Electrolyte replacement per protocol --SSI if needed for glycemic control Prophylaxis: GI Prophylaxis Protonix 40 mg IV daily 24 hours DVT Prophylaxis -- SCDs Holding pharmacologic DVT prophylaxis due to supratherapeutic INR. Critical care 30 mins aside from procedures. Problem Qualifiers (1) Prosthetic valve endocarditis: Qualified Code: T82.6XXA - Prosthetic valve endocarditis, initial encounter Piyush Decker MD Nov 09, 2016 11:01
--- NOTE | 2016-11-09 12:40 | HHI.IDPN ---
Note Infectious Disease Note ID coverage. Notes reviewed No fever Breathing is okay, on nasal O2 Taken off Levophed. Feels better Echo shows mobile structure on prosthetic valve. BC has strep viridans. 4 bottles. Patient denies IVDU - states last used was before her surgery Antibiotics Vanco Cefepime. Lines Central line Past Medical History Hospitalization from October to December 2015 for infective endocarditis and subsequent complication Hospitalization June 22 to July 23 for CHF and cervical discitis She's had CVA with subarachnoid hemorrhage, embolic lesions to the brain lungs and spleen as a result of her endocarditis Known IV drug use, patient states last time she used was prior to her hospitalization in August 2016 Bilateral sacroiliitis CVA with residual left-sided hemiplegia Past Surgical History Surgery on her discitis last July 09, 2016 AVR, MVR with tissue valve September 07, 2016 Allergies: Coded Allergies: *MDRO Multi-Drug Resistant Organism (Verified Adverse Reaction, Unknown, ) MRSA PCR screen POSITIVE- 10/18/2015 & 08/12/16 MRSA (urine, blood, 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 in sputum 2016 Objective . Vital Signs Date Time Temp Pulse Resp B/P Pulse Ox O2 Delivery O2 Flow Rate FiO2 11/09/16 10:00 95 11/09/16 08:00 98.7 82 23 113/81 99 11/09/16 08:00 82 11/09/16 07:54 98 Nasal Cannula 2.00 11/09/16 07:00 Nasal Cannula 2.00 11/09/16 06:00 82 11/09/16 04:00 78 11/09/16 04:00 98.1 78 26 118/83 100 11/09/16 02:00 81 11/09/16 00:14 94 21 11/09/16 00:00 81 11/09/16 00:00 97.5 76 17 112/67 100 11/08/16 22:00 78 11/08/16 20:00 77 11/08/16 20:00 97.2 77 29 101/62 100 11/08/16 19:00 100 Nasal Cannula 2.00 11/08/16 18:00 84 11/08/16 16:00 97.3 75 17 87/53 99 11/08/16 16:00 75 11/08/16 14:00 85 11/08/16 13:33 98 Nasal Cannula 3.00 11/08/16 11/08/16 11/09/16 15:00 23:00 07:00 Intake Total 1949 ml 577 ml 1400 ml Output Total 1750 ml 1200 ml 700 ml Balance 199 ml -623 ml 700 ml Intake Oral 300 ml 350 ml 240 ml IV Total 1008 ml 227 ml 1160 ml FFP 641 ml Output Urine Total 1750 ml 1200 ml 700 ml # Bowel Movements 0 1 1 Laboratory Tests Test 11/08/16 11/09/16 04:45 03:45 White Blood Count 10.4 TH/MM3 8.2 TH/MM3 Red Blood Count 3.25 MIL/MM3 3.19 MIL/MM3 Hemoglobin 10.0 GM/DL 9.8 GM/DL Hematocrit 30.0 % 29.6 % Mean Corpuscular Volume 92.4 FL 92.9 FL Mean Corpuscular Hemoglobin 30.9 PG 30.6 PG Mean Corpuscular Hemoglobin 33.5 % 32.9 % Concent Red Cell Distribution Width 19.9 % 20.3 % Platelet Count 30 TH/MM3 31 TH/MM3 Mean Platelet Volume 8.8 FL 9.5 FL Neutrophils (%) (Auto) 84.3 % 76.5 % Lymphocytes (%) (Auto) 9.9 % 15.8 % Monocytes (%) (Auto) 5.1 % 6.5 % Eosinophils (%) (Auto) 0.4 % 0.7 % Basophils (%) (Auto) 0.3 % 0.5 % Neutrophils # (Auto) 8.8 TH/MM3 6.3 TH/MM3 Lymphocytes # (Auto) 1.0 TH/MM3 1.3 TH/MM3 Monocytes # (Auto) 0.5 TH/MM3 0.5 TH/MM3 Eosinophils # (Auto) 0.0 TH/MM3 0.1 TH/MM3 Basophils # (Auto) 0.0 TH/MM3 0.0 TH/MM3 CBC Comment AUTO DIFF AUTO DIFF Differential Total Cells 100 Counted Neutrophils % (Manual) 80 % Band Neutrophils % 10 % Lymphocytes % 4 % Monocytes % 6 % Neutrophils # (Manual) 9.4 TH/MM3 Differential Comment FINAL DIFF AUTO DIFF MANUAL CONFIRMED Platelet Estimate LOW LOW Platelet Morphology Comment NORMAL NORMAL Target Cells 1+ 1+ Ovalocytes 1+ 1+ Funk-Belen Bodies PRESENT Laboratory Tests Test 11/08/16 11/08/16 11/09/16 04:45 21:21 03:45 Sodium Level 140 MEQ/L 140 MEQ/L Potassium Level 2.5 MEQ/L 3.6 MEQ/L 3.7 MEQ/L Chloride Level 99 MEQ/L 100 MEQ/L Carbon Dioxide Level 32.9 MEQ/L 33.2 MEQ/L Anion Gap 8 MEQ/L 7 MEQ/L Blood Urea Nitrogen 24 MG/DL 16 MG/DL Creatinine 0.61 MG/DL 0.55 MG/DL Estimat Glomerular Filtration 118 ML/MIN 133 ML/MIN Rate Random Glucose 96 MG/DL 107 MG/DL Calcium Level 7.8 MG/DL 8.1 MG/DL Phosphorus Level 1.6 MG/DL 1.7 MG/DL Magnesium Level 1.6 MG/DL 1.8 MG/DL Total Bilirubin 2.9 MG/DL 2.4 MG/DL Aspartate Amino Transf 146 U/L 95 U/L (AST/SGOT) Alanine Aminotransferase 121 U/L 97 U/L (ALT/SGPT) Alkaline Phosphatase 105 U/L 97 U/L Total Protein 5.7 GM/DL 6.3 GM/DL Albumin 2.8 GM/DL 3.4 GM/DL Microbiology Date/Time Procedure Status Source Growth 11/06/16 20:45 Urine Culture - Final Complete Urine Catheterized Urine 10-50,000 CFU/ML MIXED VIJAY... 11/07/16 01:30 Aerobic Blood Culture - Preliminary Resulted Blood Line Viridans Streptococcus [facility] 11/07/16 01:30 Anaerobic Blood Culture - Preliminary Resulted Blood Line NO GROWTH IN 2 DAYS 11/07/16 01:30 Aerobic Blood Culture - Preliminary Resulted Blood Line Viridans Streptococcus [facility] 11/07/16 01:30 Anaerobic Blood Culture - Preliminary Resulted Blood Line NO GROWTH IN 2 DAYS 11/07/16 11:02 Aerobic Blood Culture - Preliminary Resulted Blood Peripheral Viridans Streptococcus [facility] 11/07/16 11:02 Anaerobic Blood Culture - Preliminary Resulted Blood Peripheral NO GROWTH IN 2 DAYS 11/07/16 11:05 Aerobic Blood Culture - Preliminary Resulted Blood Line Viridans Streptococcus [facility] 11/07/16 11:05 Anaerobic Blood Culture - Preliminary Resulted Blood Line NO GROWTH IN 2 DAYS 11/09/16 11:22 Aerobic Blood Culture Received Blood Peripheral Pending 11/09/16 11:22 Anaerobic Blood Culture Received Blood Peripheral Pending 11/09/16 11:32 Aerobic Blood Culture Received Blood Peripheral Pending 11/09/16 11:32 Anaerobic Blood Culture Received Blood Peripheral Pending Imaging Chest X-Ray 11/08/16 0600 Signed Impressions: Service Date/Time: October 02:25 - CONCLUSION: Persistent bibasilar effusions with associated airspace disease. No interval change. Milan Aguilar MD Lower Extremity Ultrasound 11/07/16 0000 Signed Impressions: Service Date/Time: Monday, November 07, 2016 09:33 - CONCLUSION: No DVT of the left lower extremity. Nonspecific subcutaneous edema. Mookie Scales MD Physical Exam GENERAL: Awake and alert. SKIN: Cool and dry. No generalized rash, no ecchymosis, no peripheral embolic lesions. HEAD: Atraumatic. Normocephalic. No temporal or scalp tenderness. HEENT: [place] conjunctivae, no petechia or hemorrhage. No scleral icterus. Moist mucosa. NECK: Trachea midline. No JVD or lymphadenopathy. Supple, nontender, no meningeal signs. CARDIOVASCULAR: Regular rate and rhythm. LARRY. RESPIRATORY: Coarse breath sounds bilaterally. Decreased breath sounds at the bases. GASTROINTESTINAL: Abdomen soft, non-tender. No masses palpable. MUSCULOSKELETAL: Extremities without clubbing, cyanosis, warm and well perfused. Pitting edema on LLE. NEUROLOGICAL: Awake and alert. L hemiparesis, has some movement in her LLE but not in her LUE PSYCH: Cooperative LINE: Central line with no evidence of infection : Carter cath in place, clear urine. Assessment & Plan Remarks IMPRESSION Sepsis/Recurrent endocarditis. Prosthetic aortic valve endocarditis. Respiratory failure, etiology? - CHF, has known low EF S/P AVR and MVR for severe AI and MR due to IE Episode of IE last year with complications History of IVDU RECOMMENDATION Start Penicillin IV. Continue Vanco Stop Cefepime. Monitor progress Treatment course for prosthetic valve endocarditis x 6 weeks Saeid Suero MD Nov 09, 2016 12:40
--- NOTE | 2016-11-09 12:41 | EC ---
Study Study Date:11/07/2016 STUDY CONCLUSIONS SUMMARY - Left ventricle: The cavity size was moderately dilated. Systolic function was severely reduced. The estimated ejection fraction was in the range of 20% to 25%. Diffuse hypokinesis. - Aortic valve: A 19mm bioprosthesis was present. There is an elevated mean gradient even for a 19mm bioprosthetic valve consistent with some stenosis. There appears to be a mobile echogenic mass with independant cardiac movement, most likely a vegetation. Trace regurgitation. Valve area: 0.51cm^2(VTI). Valve area: 0.54cm^2 (Vmax). - Mitral valve: A 27mm bioprosthesis was present and functioning normally. - Right ventricle: The cavity size was moderately dilated. - Pulmonary arteries: PA peak pressure: 52mm Hg (S). - Pericardium, extracardiac: Appears to have a left pleural effusion and ascites, does not appear to have a pericardial effusion, although difficult to determine withshadowing from valves. If LV function is below 40, please consider prescribing an ACEI or ARB or document rationale for non-use. PROCEDURE DATA STUDY STATUS: Elective. Procedure: Transthoracic echocardiography. Image quality was good. Scanning was performed from the parasternal, apical, and subcostal acoustic windows. Study completion: The patient tolerated the procedure well. Transthoracic echocardiography. M-mode, complete 2D, complete spectral Doppler, and color Doppler. Height: Height: 62in. Weight: Weight: 160.7lb. Body mass index: BMI: 29.4kg/m^2. Body surface area: BSA: 1.74m^2. Patient status: Inpatient. CARDIAC ANATOMY LEFT VENTRICLE: The cavity size was moderately dilated. Systolic function was severely reduced. The estimated ejection fraction was in the range of 20% to 25%. Diffuse hypokinesis. AORTIC VALVE: A 19mm bioprosthesis was present. There is an elevated mean gradient even for a 19mm bioprosthetic valve consistent with some stenosis. There appears to be a mobile echogenic mass with independant cardiac movement, most likely a vegetation. Doppler: Trace regurgitation. Valve area: 0.51cm^2(VTI). Indexed valve area: 0.29cm^2/m^2 (VTI). Valve area: 0.54cm^2 (Vmax). Indexed valve area: 0.31cm^2/m^2 (Vmax). Mean gradient: 40mm Hg (S). Peak gradient: 63mm Hg (S). MITRAL VALVE: A 27mm bioprosthesis was present and functioning normally. Doppler: Valve area by pressure half-time: 1.26cm^2. Indexed valve area by pressure half-time: 0.72cm^2/m^2. Valve area by continuity equation (using LVOT flow): 0.9cm^2. Indexed valve area by continuity equation (using LVOT flow): 0.52cm^2/m^2. Mean gradient: 8mm Hg (D). LEFT ATRIUM: The atrium was mildly dilated. RIGHT VENTRICLE: The cavity size was moderately dilated. PULMONIC VALVE: Not well visualized. Doppler: There was no evidence for stenosis. Mild regurgitation. TRICUSPID VALVE: The valve appears to be grossly normal. Doppler: There was no evidence for stenosis. Trace regurgitation. PERICARDIUM: Appears to have a left pleural effusion and ascites, does not appear to have a pericardial effusion, although difficult to determine withshadowing from valves. Patient weight: 160.7lb _Ejection fraction:_ 65-75% _Fractional shortening:_ 32% up to 5Kg 5-11.5Kg 11.6-22.9Kg 23-45Kg 45-57Kg Aortic Root 7-13 <17 13-22 17-27 17-27 LA diam 6-13 <23 24-38 33-47 37-40 RVID 10-17 7-15 7-15 7-18 8-17 LVIDd 12-22 <32 24-38 33-47 37-40 LVPW 2-4 3-6 5-7 6-8 7-8 IVS 2-4 3-6 5-7 6-8 7-8 BASIC MEASUREMENTS ADULT NORMAL Left ventricle LV internal dimension, ED, chordal *60.1 mm 43-52 level, PLAX LV internal dimension, ES, chordal *52.6 mm 23-38 level, PLAX Fractional shortening, chordal level, *12 % >29 PLAX LV posterior wall thickness, ED 8.54 mm IVS/LVPW ratio, ED 0.99 <1.3 Ventricular septum Septal thickness, ED 8.43 mm Aorta Root diameter, ED 25 mm Left atrium Anterior-posterior dimension 39 mm Anterior-posterior dimension index *2.24 cm/m^2 <2.2 Right ventricle RV internal dimension, ED, PLAX 33.9 mm 19-38 DOPPLER MEASUREMENTS ADULT NORMAL Main pulmonary artery Pressure, S *52 mm Hg =30 Aortic valve Peak velocity, S 398 cm/s Mean velocity, S 299 cm/s VTI, S 49.6 cm Mean gradient, S 40 mm Hg Peak gradient, S 63 mm Hg Valve area, VTI 0.51 cm^2 Valve area index, VTI 0.29 cm^2/m^2 Valve area, Vmax 0.54 cm^2 Valve area index, Vmax 0.31 cm^2/m^2 Mitral valve Peak E-wave velocity 4.75 cm/s Mean velocity, D 137 cm/s Pressure half-time 85 ms Mean gradient, D 8 mm Hg Valve area, pressure half-time 1.26 cm^2 Valve area index, pressure half-time 0.72 cm^2/m^2 Valve area, LVOT continuity 0.9 cm^2 Valve area index, LVOT continuity 0.52 cm^2/m^2 Tricuspid valve Regurgitant peak velocity 287 cm/s Peak RV-RA gradient, S 33 mm Hg Maximal regurgitant velocity 287 cm/s Systemic veins Estimated CVP 10 mm Hg Right ventricle RV pressure, S *53 mm Hg <30 Pulmonic valve Peak velocity, S 53.7 cm/s LEGEND: Mean values are shown as u=mean value. Asterisk (*) quiles values outside specified normal range. Prepared and signed by Pete Blanc [id number]
--- NOTE | 2016-11-09 13:44 | PD.CARD.PN ---
Subjective Subjective Remarks No chest pain, no shortness of breath, no subjective fevers Objective Medications Current Medications Medications (Trade) Dose Ordered Sig/Nicky Route Start Time Stop Time Status Last Admin (NS Flush) 2 ml UNSCH PRN FLUSH 11/06/16 22:45 (NS Flush) 2 ml BID FLUSH 11/06/16 22:45 11/09/16 09:26 (Tylenol) 650 mg Q4H PRN PO 11/06/16 22:45 (Zofran Inj) 4 mg Q6H PRN IVP 11/06/16 22:45 (Colace) 100 mg Q12H PO 11/06/16 22:45 11/08/16 20:26 (Narcan Inj) 0.4 mg UNSCH PRN IV 11/06/16 22:45 (Proair Hfa Inh) 2 puff Q4HR PRN INH 11/06/16 23:00 (Coreg) 3.125 mg Q12HR PO 11/06/16 23:00 11/09/16 09:25 (CeleXA) 40 mg DAILY PO 11/07/16 09:00 11/09/16 09:25 (Colace) 100 mg BID PRN PO 11/06/16 23:00 (Ferrous Sulfate) 325 mg BID PO 11/07/16 09:00 11/09/16 09:25 ([place] 5-325 Mg) 1 tab Q8HR PRN PO 11/06/16 23:00 11/09/16 09:48 (Altace) 2.5 mg DAILY PO 11/07/16 09:00 11/09/16 09:25 (Restoril) 7.5 mg HS PRN PO 11/06/16 23:00 (Aspirin Chew) 81 mg DAILY PO 11/07/16 09:00 11/09/16 09:25 Pantoprazole Sodium 40 mg 40 mg Q24H IV PUSH 11/07/16 00:00 11/08/16 23:51 Dobutamine HCl/ Dextrose 250 ml @ 0 mls/hr Q0M IV 11/07/16 02:15 11/09/16 04:30 Pharmacy Profile Note 0 ml @ 0 mls/hr UNSCH OTHER 11/07/16 03:45 (Levophed-Dextrose Drip) 250 ml @ 0 mls/hr TITRATE IV 11/07/16 12:00 (Albumin 25% Inj) 25 gm Q12H IV 11/07/16 15:00 11/09/16 02:33 Spironolactone 50 mg 50 mg BID@09,18 PO 11/07/16 18:00 11/09/16 09:25 Potassium Chloride 100 ml @ 50 mls/hr Q2H PRN IV 11/08/16 06:30 11/08/16 06:34 Potassium Chloride 100 ml @ 50 mls/hr Q2H PRN IV 11/08/16 06:30 Potassium Chloride 100 ml @ 25 mls/hr UNSCH PRN IV 11/08/16 06:30 Potassium Chloride 100 ml @ 50 mls/hr Q2H PRN IV 11/08/16 06:30 (Magnesium Sulfate Inj/NS Inj) 100 ml @ 50 mls/hr UNSCH PRN IV 11/08/16 06:30 Magnesium Oxide 800 mg 800 mg UNSCH PRN PO 11/08/16 06:30 (Magnesium Sulfate Inj/NS Inj) 100 ml @ 50 mls/hr UNSCH PRN IV 11/08/16 06:30 Potassium Phosphate 2000 mg 2,000 mg Q4H PRN PO 11/08/16 06:30 (Sodium Phosphate Inj/NS 250 ml Inj) 250 ml @ 42 mls/hr UNSCH PRN IV 11/08/16 06:30 11/09/16 00:09 Potassium Phosphate 2000 mg 2,000 mg UNSCH PRN PO/TUBE 11/08/16 06:30 (Potassium Phosphate Inj/NS 250 ml Inj) 260 ml @ 42 mls/hr UNSCH PRN IV 11/08/16 06:30 (Lasix Inj) 20 mg Q12H IV PUSH 11/08/16 21:00 11/09/16 09:26 Potassium Chloride 30 meq 30 meq DAILY PO 11/08/16 09:45 11/09/16 09:25 (Vancomycin Inj/ NS 250 ml Inj) 262.5 ml @ 250 mls/hr Q18H IV 11/09/16 23:00 Miscellaneous Information SPECIFIC LAB TO BE ANABELLE... ONCE ONCE XX 11/12/16 04:45 11/12/16 04:46 (Pfizerpen-G Inj/ NS Inj) 100 ml @ 200 mls/hr Q4H IV 11/09/16 14:00 Vital Signs / I&O Vital Signs Date Time Temp Pulse Resp B/P Pulse Ox O2 Delivery O2 Flow Rate FiO2 11/09/16 10:00 95 11/09/16 08:00 98.7 82 23 113/81 99 11/09/16 08:00 82 11/09/16 07:54 98 Nasal Cannula 2.00 11/09/16 07:00 Nasal Cannula 2.00 11/09/16 06:00 82 11/09/16 04:00 78 11/09/16 04:00 98.1 78 26 118/83 100 11/09/16 02:00 81 11/09/16 00:14 94 21 11/09/16 00:00 81 11/09/16 00:00 97.5 76 17 112/67 100 11/08/16 22:00 78 11/08/16 20:00 77 11/08/16 20:00 97.2 77 29 101/62 100 11/08/16 19:00 100 Nasal Cannula 2.00 11/08/16 18:00 84 11/08/16 16:00 97.3 75 17 87/53 99 11/08/16 16:00 75 11/08/16 14:00 85 I/O 11/08/16 11/08/16 11/08/16 11/09/16 11/09/16 11/09/16 07:00 15:00 23:00 07:00 15:00 23:00 Intake Total 662 ml 1949 ml 577 ml 1400 ml Output Total 3000 ml 1750 ml 1200 ml 700 ml Balance -2338 ml 199 ml -623 ml 700 ml Intake Oral 300 ml 350 ml 240 ml IV Total 662 ml 1008 ml 227 ml 1160 ml FFP 641 ml Output Urine Total 3000 ml 1750 ml 1200 ml 700 ml # Bowel Movements 0 0 1 1 Physical Exam GENERAL: Chronically ill appearing, NAD, AAOx3 SKIN: Warm and dry. HEAD: Atraumatic. Normocephalic. EYES: Pupils equal and round. No scleral icterus. No injection or drainage. ENT: No nasal bleeding or discharge. Mucous membranes pink and moist. NECK: Trachea midline. No JVD. CARDIOVASCULAR: Regular rate and rhythm. RESPIRATORY: No accessory muscle use. Decreased breath sounds bilaterally GASTROINTESTINAL: Abdomen soft, non-tender, nondistended. Hepatic and splenic margins not palpable. MUSCULOSKELETAL: Extremities without clubbing, cyanosis, or edema. No obvious deformities. NEUROLOGICAL: Awake and alert. No obvious cranial nerve deficits. Left sided weakness PSYCHIATRIC: Appropriate mood and affect; insight and judgment normal. Laboratory Laboratory Tests Test 11/08/16 11/09/16 11/09/16 21:21 03:45 07:25 Potassium Level 3.6 MEQ/L 3.7 MEQ/L Phosphorus Level 1.7 MG/DL Magnesium Level 1.8 MG/DL White Blood Count 8.2 TH/MM3 Red Blood Count 3.19 MIL/MM3 Hemoglobin 9.8 GM/DL Hematocrit 29.6 % Mean Corpuscular Volume 92.9 FL Mean Corpuscular Hemoglobin 30.6 PG Mean Corpuscular Hemoglobin 32.9 % Concent Red Cell Distribution Width 20.3 % Platelet Count 31 TH/MM3 Mean Platelet Volume 9.5 FL Neutrophils (%) (Auto) 76.5 % Lymphocytes (%) (Auto) 15.8 % Monocytes (%) (Auto) 6.5 % Eosinophils (%) (Auto) 0.7 % Basophils (%) (Auto) 0.5 % Neutrophils # (Auto) 6.3 TH/MM3 Lymphocytes # (Auto) 1.3 TH/MM3 Monocytes # (Auto) 0.5 TH/MM3 Eosinophils # (Auto) 0.1 TH/MM3 Basophils # (Auto) 0.0 TH/MM3 CBC Comment AUTO DIFF Differential Comment AUTO DIFF CONFIRMED Platelet Estimate LOW Platelet Morphology Comment NORMAL Target Cells 1+ Ovalocytes 1+ Prothrombin Time 65.9 SEC Prothromb Time International 5.5 RATIO Ratio Sodium Level 140 MEQ/L Chloride Level 100 MEQ/L Carbon Dioxide Level 33.2 MEQ/L Anion Gap 7 MEQ/L Blood Urea Nitrogen 16 MG/DL Creatinine 0.55 MG/DL Estimat Glomerular Filtration 133 ML/MIN Rate Random Glucose 107 MG/DL Calcium Level 8.1 MG/DL Total Bilirubin 2.4 MG/DL Aspartate Amino Transf 95 U/L (AST/SGOT) Alanine Aminotransferase 97 U/L (ALT/SGPT) Alkaline Phosphatase 97 U/L Total Protein 6.3 GM/DL Albumin 3.4 GM/DL Vancomycin Level Trough 11.9 MCG/ML Blood Bank Comment Assessment and Plan Problem List: (1) S/P AVR (aortic valve replacement) (2) S/P MVR (mitral valve replacement) (3) CHF exacerbation (4) Gram-positive bacteremia (5) Acute respiratory failure (6) Prosthetic valve endocarditis (7) Chronic systolic (congestive) heart failure (8) Elevated troponin (9) Anemia (10) Hx of cerebral embolic infarction (11) History of endocarditis (12) history of IV drug abuse (13) Hepatitis C (14) Thrombocytopenia Assessment and Plan 1) Echo showing mobile structure on the bioprosthetic AVR concerning for endocarditis which would fit with her sepsis picture 2) Discussed with CT surgery, not a repeat surgery candidate 3) Will hold off on ROSANGELA with INR elevated and platelets low so high risk, 4/4 blood cultures positive for strept viridans, "Definite Endocarditis" by [facility]ara IE Criteria and not a repeat surgical candidate 4) Will see PRN, call with questions Problem Qualifiers (1) Acute respiratory failure: Qualified Code: J96.01 - Acute respiratory failure with hypoxia (2) Prosthetic valve endocarditis: Qualified Code: T82.6XXA - Prosthetic valve endocarditis, initial encounter (3) Anemia: Qualified Code: D64.9 - Anemia, unspecified type (4) Hepatitis C: Qualified Code: B18.2 - Chronic hepatitis C without hepatic coma Pete Blacn DO Nov 09, 2016 13:44
[2016-11-09] MEDS: PENICILLIN G POTASSIUM INJ 3,000,000 UNITS in SODIUM CHLORIDE 0.9% INJ 100 ML IV SCH ×3 (14:21→22:40)
[2016-11-09] MEDS ORDERED: LORazepam 2 MG/ML VIAL ONE ×2 (17:44→17:50)
[2016-11-09] MEDS ORDERED: ETOMIDATE 20 MG/10 ML VIAL ONE (17:55)
[2016-11-09] MEDS ORDERED: ROCURONIUM INJ 50 MG/5 ML VIAL ONE (17:55)
--- NOTE | 2016-11-09 18:09 | PD.PROCEDR ---
Procedure Note Procedure DATE: 11/09/2016 PROCEDURE: Orotracheal intubation INDICATION: Respiratory failure DETAILS OF PROCEDURE The patient was placed in optimal position and preoxygenated with 100% FiO2 via bag valve mask. At the start oxygen saturation was 100%. The patient was administered 20 mg etomidate IV and 50 mg rocuronium IV. I entered the oropharynx with a size 4 jGVL glidescope blade and obtained a grade 2 view of the airway. On single attempt a size 7.5 cuffed endotracheal tube was passed through the vocal cords. Correct tube location was confirmed with end tidal CO2 detector and by auscultating over bilateral lung de jesus. The endotracheal tube was secured with adhesive tape at a depth of 23 cm at the lips. The patient was connected to the ventilator. The patient tolerated the procedure well without any apparent complications. Oxygen saturations were maintained greater than 95% all times. STAT chest x-ray at time of dictation. Morgan Perez MD Nov 09, 2016 18:09
[2016-11-09] MEDS ORDERED: levETIRAcetam INJ 500 MG in SODIUM CHLORIDE 0.9% INJ 100 ML IV ONE ×2 (18:15→19:00)
[2016-11-09] MEDS: levETIRAcetam INJ 500 MG in SODIUM CHLORIDE 0.9% INJ 100 ML IV SCH (18:35)
[2016-11-09 19:05] LABS: BLOOD GAS BASE EXCESS -4.6 mmol/L (-2-2); BLOOD GAS HCO3 21 mmol/L (22-26); BLOOD GAS METHEMOGLOBIN 0.7 % (0-2); BLOOD GAS O2 HGB SATURATION 98 % (90-100); BLOOD GAS OXYGEN CONTENT 14.6 Vol % (12.0-20.0); BLOOD GAS PCO2 45 mmHg (38-42); BLOOD GAS PO2 337 mmHg (61-120); TEMP CORR TO 98.6
[2016-11-09 19:06] LABS: CRITICAL VALUE YES; OXYGEN DEVICE VENTILATOR
[2016-11-09 19:07] LABS: DRAW SITE LT RADIAL; FIO2 100 %; NUMBER OF ARTERIAL PUNCTURES 2; STAT NO; ULNAR PULSE PRESENT
[2016-11-09 19:09] LABS: BASOPHIL % 0.2 % (0.0-2.0); EOSINOPHIL % 0.1 % (0.0-4.0); HEMATOCRIT 32.5 % (35.0-46.0); LYMPH % 11.3 % (9.0-44.0); LYMPHOCYTE # 1.6 TH/MM3 (1.0-4.8); MEAN CELL VOLUME 97.6 FL (80.0-100.0); MEAN CORPUSCULAR HEMOGLOBIN 29.6 PG (27.0-34.0); MEAN CORPUSCULAR HGB CONC 30.3 % (32.0-36.0); MONO % 4.1 % (0.0-8.0); NEUT % 84.3 % (16.0-70.0); PLATELET COUNT 46 TH/MM3 (150-450); RED BLOOD COUNT 3.33 MIL/MM3 (4.00-5.30); RED CELL DISTRIBUTION WIDTH 21.8 % (11.6-17.2); WHITE BLOOD COUNT 14.3 TH/MM3 (4.0-11.0)
[2016-11-09 19:15] LABS: HEMO FLAGS AUTO DIFF; REVIEW FLAG AUTO DIFF
[2016-11-09 19:16] LABS: APTT (PATIENT) 46.4 SEC (24.3-30.1); INTERNATIONAL NORMALIZED RATIO 5.7 RATIO; PROTHROMBIN TIME - PATIENT 68.4 SEC (9.8-11.6)
[2016-11-09] MEDS ORDERED: ETOMIDATE 20 MG/10 ML VIAL IV PUSH ONE (19:45)
[2016-11-09] MEDS ORDERED: ROCURONIUM INJ 50 MG/5 ML VIAL IV ONE (19:45)
[2016-11-09] MEDS ORDERED: LORazepam 2 MG/ML VIAL IV PUSH ONE (19:45)
--- NOTE | 2016-11-09 20:13 | RADRPT ---
EXAM DATE/TIME: 11/09/2016 18:46 [facility] COMPARISON: No previous studies available for comparison. INDICATIONS : Respiratory failure. MEDICAL HISTORY : Sepsis. Congestive heart failure. SURGICAL HISTORY : CABG. Heart valve replacement. ENCOUNTER: Subsequent ACUITY: 2 days PAIN SCORE: Non-responsive. LOCATION: chest FINDINGS: Patient is now intubated. The endotracheal tube tip extends about 1 cm down the right mainstem bronch us. Bibasilar consolidation persists, worsening on both sides. Small, bilateral pleural effusions are again noted. There is a new nasogastric tube that courses into the stomach. Unchanged right subclavian central venous catheter, tip in the right atrium. CONCLUSION: Right mainstem bronchus intubation. Worsening bilateral airspace disease. Mookie Scales MD on November 09, 2016 at 20:11 Board Certified Radiologist. This report was verified electronically.
--- NOTE | 2016-11-09 20:23 | RADRPT ---
EXAM DATE/TIME: 11/09/2016 20:07 [facility] COMPARISON: No previous studies available for comparison. INDICATIONS : Altered mental status. RADIATION DOSE: 44.25 CTDIvol (mGy) MEDICAL HISTORY : Carcinoma, anal. Cardiovascular disease Hepatitis C. SURGICAL HISTORY : Non-responsive. ENCOUNTER: Initial ACUITY: 1 day PAIN SCALE: Non-responsive LOCATION: cranial TECHNIQUE: Multiple contiguous axial images were obtained of the head. Using automated exposure control and adj ustment of the mA and/or kV according to patient size, radiation dose was kept as low as reasonably a chievable to obtain optimal diagnostic quality images. FINDINGS: Ill-defined low attenuation seen in the right posterior cerebral artery distribution and of concern f or a subacute infarct. Similar but more localized findings are seen in the left posterior parietal lo be. There is an ill-defined parenchymal hemorrhage versus possible mass in the left frontal lobe that measures at least 3.7 cm in size. No midline shift demonstrated. CONCLUSION: 1. Suspected subacute infarcts in both posterior cerebral artery distributions, right worse than left . 2. Intraparenchymal bleed versus hemorrhagic mass left frontal lobe. MRI of the brain with and without contrast is recommended. Mookie Scales MD on November 09, 2016 at 20:20 Board Certified Radiologist. This report was verified electronically.
[2016-11-09 20:30] LABS: BANDS 4 % (0-6); MYELOCYTES 1 % (0-0); NEUTROPHIL # MANUAL DIFF 12.7 TH/MM3 (1.8-7.7); POLYS (SEG NEUTROPHILS) 84 % (16-70); WBC DIFF SAMPLE 100
[2016-11-09 20:31] LABS: OVALOCYTES 1+ (NORMAL); PLATELET ESTIMATE SMEAR LOW (NORMAL); PLATELET MORPHOLOGY NORMAL (NORMAL); SCAN/DIFF FINAL DIFF MANUAL
[2016-11-09 21:14] LABS: BICARBONATE 21.7 MEQ/L (21.0-32.0); POTASSIUM 4.8 MEQ/L (3.5-5.1)
[2016-11-09] MEDS ORDERED: PROTHROMBIN COMPLEX CONC INJ 2,500 UNITS in SYRINGE/BAG 1 EA IV ONE (21:15)
[2016-11-09] MEDS: CHLORHEXIDINE 0.12% (ORAL KIT) 15 ML CUP MT SCH (21:37)
[2016-11-09] MEDS ORDERED: GADODIAMIDE PF 287 MG/ML 5 ML VIAL (for RAD MRI) IV ONE (21:39)
[2016-11-09] MEDS: LACTOBACILLUS ACIDOPHILUS TAB PO SCH (21:39)
[2016-11-09] MEDS: metroNIDAZOLE 500 MG INJ 100 ML IV SCH (21:40)
[2016-11-09] MEDS ORDERED: PHYTONADIONE INJ 10 MG in SODIUM CHLORIDE 0.9% INJ 50 ML IV ONE (22:00)
--- NOTE | 2016-11-09 22:04 | RADRPT ---
EXAM DATE/TIME: 11/09/2016 20:28 [facility] COMPARISON: CT BRAIN W/O CONTRAST, November 09, 2016, 20:07. INDICATIONS : Seizures. Hx: IVDU. CONTRAST: 13 cc Omniscan (gadodiamide) IV MEDICAL HISTORY : Hepatitis. Cardiovascular disease SURGICAL HISTORY : Aortic and mitral valve replacement. ENCOUNTER: Subsequent ACUITY: 3 day PAIN SCORE: Nonresponsive. LOCATION: cranial TECHNIQUE: Multiplanar, multisequence MRI of the brain was performed both prior to and following the administrat ion of paramagnetic contrast. FINDINGS: 3.4 cm focus of subacute appearing intraparenchymal hemorrhage seen in the left frontal lobe. Within this is an irregular shaped area of enhancement that measures approximately 15 mm in size. Some mild leptomeningeal enhancement is seen in the same area. Bilateral subacute infarcts are demonstrated that involve all lobes on the right, especially the hermes etal lobe and primarily the parietal and occipital lobes on the left. There is some patchy laminar pa ttern enhancement in the infarct regions. These are all expected to be greater than several weeks old . I don't see an acute or more recently subacute infarct. No mass effect or midline shift. CONCLUSION: 1. Widespread bilateral infarcts as above, several weeks in age or older. 2. Focal intra-axial mass with surrounding hemorrhage of the left frontal lobe. The lesion itself lacey ears to be fairly small, probably about 15 mm in size. The hemorrhage is about 3.4 cm. Mookie Scales MD on November 09, 2016 at 21:55 Board Certified Radiologist. This report was verified electronically.
[2016-11-09] MEDS ORDERED: VANCOMYCIN INJ 1,250 MG in SODIUM CHLOR 0.9% 250 ML INJ 250 ML IV SCH (23:00)
[2016-11-09] MEDS: PANTOPRAZOLE SODIUM 40 MG VIAL IV PUSH SCH (23:48)
[2016-11-10] VITALS (19 sets, daily range): BP systolic 99–108; BP diastolic 63–81; PULSE 75–88; RESP 16–18; TEMP 96.6–98.6; O2SAT 24–100
[2016-11-10] MEDS: DOBUTamine 250 MG/D5W 250 ML PREMIX DRIP IV SCH ×3 (00:35→23:09)
[2016-11-10] MEDS: MIDAZOLAM 100 MG/ML INJ 100 ML IV SCH ×2 (00:35→23:09)
[2016-11-10] MEDS: ALBUMIN HUMAN 25% 25 GM/100 ML BAGP IV SCH ×2 (03:21→15:59)
[2016-11-10] MEDS: RESP: ALBUTEROL 2.5 MG/IPRATROPIUM 0.5 MG NEB (SCH) NEB ×4 (03:22→21:28)
[2016-11-10] MEDS: metroNIDAZOLE 500 MG INJ 100 ML IV SCH ×3 (03:22→19:49)
[2016-11-10] MEDS: PENICILLIN G POTASSIUM INJ 3,000,000 UNITS in SODIUM CHLORIDE 0.9% INJ 100 ML IV SCH ×6 (03:23→20:57)
[2016-11-10] MEDS: levETIRAcetam INJ 500 MG in SODIUM CHLORIDE 0.9% INJ 100 ML IV SCH ×2 (05:00→17:25)
[2016-11-10 05:18] LABS: AUTOMATED NEUTROPHIL # 6.9 TH/MM3 (1.8-7.7); BASOPHIL % 0.5 % (0.0-2.0); EOSINOPHIL # 0.1 TH/MM3 (0-0.4); EOSINOPHIL % 0.6 % (0.0-4.0); HEMATOCRIT 28.8 % (35.0-46.0); LYMPH % 17.8 % (9.0-44.0); LYMPHOCYTE # 1.7 TH/MM3 (1.0-4.8); MEAN CELL VOLUME 93.1 FL (80.0-100.0); MEAN CORPUSCULAR HGB CONC 32.2 % (32.0-36.0); MONO % 7.2 % (0.0-8.0); NEUT % 73.9 % (16.0-70.0); PLATELET COUNT 41 TH/MM3 (150-450); RED BLOOD COUNT 3.09 MIL/MM3 (4.00-5.30); RED CELL DISTRIBUTION WIDTH 20.4 % (11.6-17.2); WHITE BLOOD COUNT 9.3 TH/MM3 (4.0-11.0)
[2016-11-10 05:21] LABS: APTT (PATIENT) 30.8 SEC (24.3-30.1); INTERNATIONAL NORMALIZED RATIO 1.4 RATIO; PROTHROMBIN TIME - PATIENT 16.1 SEC (9.8-11.6)
[2016-11-10 05:31] LABS: HEMO FLAGS AUTO DIFF
[2016-11-10 06:07] LABS: ALKALINE PHOSPHATASE 90 U/L (45-117); ALT (GPT) 82 U/L (10-53); ANION GAP 10 MEQ/L (5-15); AST (GOT) 73 U/L (15-37); BICARBONATE 28.3 MEQ/L (21.0-32.0); BLOOD UREA NITROGEN 12 MG/DL (7-18); CHLORIDE 102 MEQ/L (98-107); GLOMERULAR FILTRATION RATE 135 ML/MIN (>89); MAGNESIUM 1.9 MG/DL (1.5-2.5); POTASSIUM 3.6 MEQ/L (3.5-5.1); SODIUM (NA) 140 MEQ/L (136-145); TOTAL BILIRUBIN ADULT 3.2 MG/DL (0.2-1.0)
--- NOTE | 2016-11-10 06:07 | RADRPT ---
EXAM DATE/TIME: 11/10/2016 03:53 [facility] COMPARISON: CHEST SINGLE AP, November 09, 2016, 18:46. INDICATIONS : Evaluate for effusions. MEDICAL HISTORY : Congestive heart failure. Sepsis. SURGICAL HISTORY : CABG. ENCOUNTER: Subsequent ACUITY: 4 - 6 days PAIN SCORE: Non-responsive. LOCATION: Bilateral chest FINDINGS: Endotracheal tub tip well above the cinthya. Gastric tube traverses the [id number]. Right subclav mar catheter tip projects over the distal superior vena cava. There is persistent left mid and lower lung consolidation with loss of delineation of the entire left hemidiaphragm. Patchy areas of infil trate in the right lower lung and thickening of the lateral right pleura characteristic of pleural ef fusion, similar to prior. CONCLUSION: ET tube in good position. Persistent left lower lung consolidation and pleural effusion with infiltr ates in the right lower lung. Mo Benson MD on November 10, 2016 at 6:04 Board Certified Radiologist. This report was verified electronically.
[2016-11-10] MEDS: fentaNYL DRIP 250 ML IV SCH ×2 (06:39→19:50)
[2016-11-10 07:37] LABS: PLATELET ESTIMATE SMEAR LOW (NORMAL); PLATELET MORPHOLOGY NORMAL (NORMAL); SCAN/DIFF AUTO DIFF CONFIRMED
--- NOTE | 2016-11-10 08:26 | HHI.FPPN ---
Subjective Remarks Pt seen this morning. Intubated overnight for seizure and respiratory failure. MRI found to have frontal lobe mass with surrounding hemorrhage. (Delfina Bojorquez MD) Objective Vitals Vital Signs Date Time Temp Pulse Resp B/P Pulse Ox O2 Delivery O2 Flow Rate FiO2 11/10/16 07:28 100 40 11/10/16 07:00 100 Mechanical Ventilator 40 11/10/16 06:00 79 11/10/16 04:00 84 11/10/16 04:00 97.9 84 16 99/63 99 11/10/16 03:20 24 40 11/10/16 02:00 81 11/10/16 01:30 100 70 11/10/16 00:00 98.6 86 16 104/69 99 11/10/16 00:00 82 11/09/16 22:00 81 11/09/16 21:35 100 70 11/09/16 21:10 100 100 11/09/16 20:15 100 100 11/09/16 20:00 Mechanical Ventilator 11/09/16 20:00 100.8 97 16 115/84 99 11/09/16 20:00 97 11/09/16 19:55 100 11/09/16 18:12 98 100 11/09/16 18:00 132 11/09/16 16:00 101.1 115 30 126/77 96 11/09/16 16:00 115 11/09/16 14:00 96 11/09/16 12:00 82 11/09/16 12:00 99.0 82 26 103/74 91 11/09/16 10:00 95 I/O 11/09/16 11/09/16 11/09/16 11/10/16 11/10/16 11/10/16 07:00 15:00 23:00 07:00 15:00 23:00 Intake Total 1400 ml 1008 ml 891 ml 912 ml Output Total 700 ml 1300 ml 1200 ml 1250 ml Balance 700 ml -292 ml -309 ml -338 ml Intake Oral 240 ml 600 ml IV Total 1160 ml 408 ml 891 ml 812 ml Albumin 100 ml Output Urine Total 700 ml 1300 ml 1200 ml 1200 ml Gastric Drainage Total 50 ml # Bowel Movements 1 3 0 0 (Delfina Bojorquez MD) Result Diagram: 11/10/16 04511/10/16 0450 Objective Remarks GENERAL: female laying in bed intubated and sedated. SKIN: Warm and dry. R subclavian central line with no surrounding erythema. HEENT: AT/NC. Pupils equal and round. MMM. HEART: RRR with 3/6 LARRY heard throughout. LUNGS: Anterior lung sounds clear to auscultation. ABDOMEN: Soft, NT, ND. Mild distention. EXTREMITIES: No significant LE edema. NEURO: Sedated. Does not follow commands. Left-sided hemiparesis. 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 Critical care managing the patient. Infectious disease, cardiology, and and CT surgery also consulted. Patient with 3/6 LARRY suggestive of recurrent endocarditis; 2D suggestive of AV valve vegetation and patient with + blood cultures growing Strep viridans. Not a surgical candidate. 1. Severe sepsis/septic shock from Strep viridans bacteremia and suspected infective endocarditis - Patient presented with tachycardia, tachypnea, leukocytosis with white count 27.4, and lactic acid 10.0 with evidence of end-organ dysfunction including NITISH , transaminitis, and elevated troponins - 3/6 systolic ejection murmur suggestive of possible recurrent infective endocarditis though patient denies drug use since August before her AV and MV replacements - 2D echo suggestive of AV vegetation - Line and blood cultures growing Strep viridans - Repeat blood culture ordered - ID managing antibiotics * Continue IV vanco (started 11/06) * Started IV PCN today - Continues to be on dobutamine and Levophed - ID, critical care, and cardiology consulted; appreciate their expertise 2. Acute respiratory failure - Patient initially presented on BiPAP with VBG showing severe metabolic acidosis with pH 7.19 - Admission CXR showing bilateral consolidations and pleural effusions, L>R - Respiratory status improved initially and patient was on 2L nasal cannula up until yesterday afternoon when she had a seizure and went into respiratory failure - Now intubated and sedated and critical care managing 3. Intracranial hemorrhage - MRI showing widespread bilateral infarcts and focal intra-axial mass with surrounding hemorrhage of the left frontal lobe - ?Embolic focus with surrounding hemorrhage - Vitamin K given yesterday since Coumadin was >5 4. CHF exacerbation/fluid overload - 2D echo with EF 20-25% - Continue to diurese >3L UOP in past 24 hours - Continue spironolactone and Lasix 5. Thrombocytopenia - Acute during this admission likely secondary to septic shock and coagulopathy - Monitor closely 6. History of PE - INR supratherapeutic on admission therefore Coumadin was held - Now patient with intracranial breed FEN: - Fluids:Receiving volume through various drips and IV medications. Avoid additional secondary to cardiogenic shock - Electrolytes: Replete per protocol - Nutrition: NPO - GI prophylaxis: Protonix - DVT prophylaxis: Anticoagulation C/I given intracranial bleed and initial INR supratherapeutic dw Dr. Pires Discharge Planning Unclear discharge timetable right now. (Delfina Bojorquez MD) Attending Attestation Patient seen and examined. Case reviewed and discussed with the resident team. Agree with plan of care as discussed with me and documented in the resident note. sadly, she deteriorated overnight. appreciate help of Intensivists (Gladys Pires MD) Problem List: (1) Septic shock Status: Acute (2) Gram-positive bacteremia Status: Acute (3) Chronic systolic (congestive) heart failure Status: Chronic (4) Acute respiratory failure Status: Resolved (5) Thrombocytopenia Status: Acute (6) CHF exacerbation Status: Acute (7) Hepatitis C Status: Chronic (Delfina Bojorquez MD) Problem Qualifiers (1) Acute respiratory failure: Qualified Code: J96.01 - Acute respiratory failure with hypoxia (2) Hepatitis C: Qualified Code: B18.2 - Chronic hepatitis C without hepatic coma Delfina Bojorquez MD Nov 10, 2016 08:26 Gladys Pires MD Nov 10, 2016 14:30
[2016-11-10] MEDS: CARVEDILOL 3.125 MG TAB PO SCH ×2 (09:00→19:50)
[2016-11-10] MEDS: FERROUS SULFATE 325 MG (65 MG ELEMENTAL IRON) TAB PO SCH ×2 (09:00→19:51)
--- NOTE | 2016-11-10 10:01 | RADRPT ---
EXAM DATE/TIME: 11/10/2016 09:18 [facility] COMPARISON: CT BRAIN W/O CONTRAST, November 09, 2016, 20:07. MRI BRAIN W & W/O CONTRAST, November 09, 2016, 20:28. INDICATIONS : Unresponsiveness. MEDICAL HISTORY : Hepatitis C. Vegetation on the heart SURGICAL HISTORY : Heart valve replacement X2 ENCOUNTER: Initial ACUITY: 2 day PAIN SCORE: 0/10 LOCATION: cranial Please note a normal MRA of the brain does not entirely exclude the possibility of a small aneurysm, nor the possibility of distal intracranial vessel disease. TECHNIQUE: 3D time of flight MRA was performed. Source images, multiplanar STS MIP, and 3D volume MIP reconstru ctions were reviewed. FINDINGS: The internal carotid arteries are patent bilaterally. The internal carotid arteries are seen to pamela lly bifurcate into the anterior and middle cerebral arteries. There is severe reduction in caliber of the right middle cerebral artery and its more distal branches beyond the distal M1 segment. The lef t middle cerebral artery appears normal. The basilar artery is formed in the 2 vertebral arteries. Th e basilar artery is seen to normally bifurcate into the pusher showed large. An aneurysm is not seen. CONCLUSION: Abrupt decrease in flow at the M2 branches of the right middle cerebral artery. Mookie Razo MD on November 10, 2016 at 9:53 Board Certified Radiologist. This report was verified electronically.
[2016-11-10] MEDS: CHLORHEXIDINE 0.12% (ORAL KIT) 15 ML CUP MT SCH ×2 (10:18→19:49)
[2016-11-10] MEDS: SODIUM CHLORIDE 0.9% FLUSH 5 ML FLUSH FLUSH SCH ×2 (10:18→19:49)
[2016-11-10] MEDS: POTASSIUM CHLORIDE 10 MEQ CONTROLLED RELEASE TAB PO SCH (10:19)
[2016-11-10] MEDS: FUROSEMIDE 40 MG/4 ML VIAL IV PUSH SCH ×2 (10:19→19:50)
[2016-11-10] MEDS: LACTOBACILLUS ACIDOPHILUS TAB PO SCH ×2 (10:19→19:51)
[2016-11-10] MEDS: ASPIRIN 81 MG CHEW TAB PO SCH (10:20)
[2016-11-10] MEDS: SPIRONOLACTONE 50 MG TAB PO SCH ×2 (10:20→17:25)
[2016-11-10] MEDS: CITALOPRAM HYDROBROMIDE 40 MG TAB PO SCH (10:20)
[2016-11-10] MEDS: RAMIPRIL 2.5 MG CAP PO SCH ×2 (10:20→10:28)
[2016-11-10] MEDS: DOCUSATE SODIUM 100 MG CAP PO SCH ×2 (10:21→22:45)
--- NOTE | 2016-11-10 10:26 | PD.CONS ---
HPI Service Neurosurgery Consult Requested By Reason for Consult New left frontal bleed Primary Care Physician Abe Gray MD History of Present Illness 26 yr old with h/o endocarditis and well known to Dr Cope after a SAH and discitis from endocarditis. She had residual encephalomalacia in both occipital lobes and in the right parietal region. She is s/p ACDF last July [address] Cope for myelopathy. She is s/p AVR and MVR with tissue valves from last September 2016. She presented from home with sepsis from Viridens Strep endocarditis and coagulopathy. A new left frontal lesion is seen on MRI, about 15 mm and associated with scant SAH and edema about 3 cm with no mass effect on the rest of the brain. She has had no seizures and is on prophylaxis with keppra. She is hemodynamically improved on antibiotics with INR improvements from 8 to 1.4 and residual thrombocytopenia. . Review of Systems ROS Limitations: Altered Mental Status Ears, nose, mouth, throat: DENIES: Tinnitus, Hearing loss, Vertigo, Nasal discharge, Oral lesions, Throat pain, Hoarseness, Ear Pain, Running Nose, Epistaxis, Sinus Pain, Toothache, Odynophagia Cardiovascular: COMPLAINS OF: Chest pain Gastrointestinal: COMPLAINS OF: Abdominal pain Integumentary: DENIES: Abnormal pigmentation, Pruritus, Rash, Nail changes, Breast masses, Breast skin changes, Nipple discharge Hematologic/lymphatic: COMPLAINS OF: Bruising Neurologic: COMPLAINS OF: Localized weakness Past Family Social History Allergies: Coded Allergies: *MDRO Multi-Drug Resistant Organism (Verified Adverse Reaction, Unknown, ) MRSA PCR screen POSITIVE- 10/18/2015 & 08/12/16 MRSA (urine, blood, 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 in sputum 2015 Past Medical History 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, spleen, spine, CHF IVDA Hepatitis C Past Surgical History AVR, MVR, ACDF Reported Medications Reported Meds & Active Scripts Active Warfarin 3 Mg Tab 3 Mg PO DAILY Take on Mon, Wed, Sat at 4pm Coumadin (Warfarin) 2.5 Mg Tab 2.5 Mg PO DAILY@16 Take Sat, Saturday, , Saturday at 4pm keep INR 2.0-2.5, hold INR>3.5 Hm One Daily/Iron (Multiple Vitamins W/ Iron) 1 Tab Tab 1 Tab PO DAILY Restoril (Temazepam) 7.5 Mg Cap 7.5 Mg PO HS PRN Hydrocodone-Acetaminophen 5-325 mg Tab 1 Tab PO Q8HR PRN Ferrous Sulfate 325 Mg Tab 325 Mg PO BID Lasix (Furosemide) 40 Mg Tab 40 Mg PO DAILY Ramipril 2.5 Mg Cap 2.5 Mg PO DAILY Pantoprazole (Pantoprazole Sodium) 40 Mg Tab 40 Mg PO DAILY@06 Celexa (Citalopram Hydrobromide) 40 Mg Tab 40 Mg PO DAILY Coreg (Carvedilol) 3.125 Mg Tab 3.125 Mg PO Q12HR [Aspirin Chew] 81 MG Chew 81 Mg PO DAILY Dok (Docusate Sodium) 100 Mg Cap 100 Mg PO BID PRN Ventolin Hfa 18 GM Inh (Albuterol Sulfate) 90 Mcg/Act Aer 2 Puff INH Q4-6H PRN Tylenol (Acetaminophen) 325 Mg Cap 650 Mg PO Q6H PRN Family History CVA in father Social History Lives with her parents, rare ETOH, hx of IVDA Physical Exam Vital Signs Vital Signs Date Time Temp Pulse Resp B/P Pulse Ox O2 Delivery O2 Flow Rate FiO2 11/10/16 09:46 100 100 11/10/16 07:28 100 40 11/10/16 07:00 100 Mechanical Ventilator 40 11/10/16 06:00 79 11/10/16 04:00 84 11/10/16 04:00 97.9 84 16 99/63 99 11/10/16 03:20 24 40 11/10/16 02:00 81 11/10/16 01:30 100 70 11/10/16 00:00 98.6 86 16 104/69 99 11/10/16 00:00 82 11/09/16 22:00 81 11/09/16 21:35 100 70 11/09/16 21:10 100 100 11/09/16 20:15 100 100 11/09/16 20:00 Mechanical Ventilator 11/09/16 20:00 100.8 97 16 115/84 99 11/09/16 20:00 97 11/09/16 19:55 100 11/09/16 18:12 98 100 11/09/16 18:00 132 11/09/16 16:00 101.1 115 30 126/77 96 11/09/16 16:00 115 11/09/16 14:00 96 11/09/16 12:00 82 11/09/16 12:00 99.0 82 26 103/74 91 Physical Exam Intubated, sedated with fentanyl/versed, pupils are 3mm reactive, corneal reflexes are present but decreased, gag is present but decreased, non verbal and not awake. Head atraumatic, skin warm and dry RRR systolic murmur, abd obese, soft, BS present No peripheral edema, no rashes seen, Minimal withdrawal of the lower extremities to pain, no response to pain in the upper extremities, Negative Babinski violeta. Laboratory Laboratory Tests Test 11/09/16 11/09/16 11/09/16 11/10/16 18:45 18:51 22:25 04:50 White Blood Count 14.3 9.3 Red Blood Count 3.33 3.09 Hemoglobin 9.8 9.3 Hematocrit 32.5 28.8 Mean Corpuscular Volume 97.6 93.1 Mean Corpuscular Hemoglobin 29.6 30.0 Mean Corpuscular Hemoglobin 30.3 32.2 Concent Red Cell Distribution Width 21.8 20.4 Platelet Count 46 41 Mean Platelet Volume 9.7 9.2 Neutrophils (%) (Auto) 84.3 73.9 Lymphocytes (%) (Auto) 11.3 17.8 Monocytes (%) (Auto) 4.1 7.2 Eosinophils (%) (Auto) 0.1 0.6 Basophils (%) (Auto) 0.2 0.5 Neutrophils # (Auto) 12.0 6.9 Lymphocytes # (Auto) 1.6 1.7 Monocytes # (Auto) 0.6 0.7 Eosinophils # (Auto) 0.0 0.1 Basophils # (Auto) 0.0 0.0 CBC Comment AUTO DIFF AUTO DIFF Differential Total Cells 100 Counted Neutrophils % (Manual) 84 Band Neutrophils % 4 Lymphocytes % 7 Monocytes % 4 Neutrophils # (Manual) 12.7 Myelocytes 1 Differential Comment FINAL DIFF AUTO DIFF MANUAL CONFIRMED Platelet Estimate LOW LOW Platelet Morphology Comment NORMAL NORMAL Ovalocytes 1+ Prothrombin Time 68.4 16.1 Prothromb Time International 5.7 1.4 Ratio Activated Partial 46.4 30.8 Thromboplast Time Fibrinogen 205 Sodium Level 138 140 Potassium Level 4.8 3.6 Chloride Level 100 102 Carbon Dioxide Level 21.7 28.3 Anion Gap 16 10 Blood Urea Nitrogen 15 12 Creatinine 0.83 0.54 Estimat Glomerular Filtration 82 135 Rate Random Glucose 120 83 Calcium Level 7.7 8.6 Phosphorus Level 3.5 1.4 Magnesium Level 2.0 1.9 Total Creatine Kinase 27 Troponin I 1.05 Thyroid Stimulating Hormone 5.040 3rd Gen Blood Gas Puncture Site LT RADIAL Blood Gas Patient Temperature 98.6 Blood Gas HCO3 21 Blood Gas Base Excess -4.6 Blood Gas Oxygen Saturation 98 Arterial Blood pH 7.29 Arterial Blood Partial 45 Pressure CO2 Arterial Blood Partial 337 Pressure O2 Arterial Blood Oxygen Content 14.6 Arterial Blood 2.0 Carboxyhemoglobin Arterial Blood Methemoglobin 0.7 Blood Gas Hemoglobin 10.0 Oxygen Delivery Device VENTILATOR Blood Gas Ventilator Setting Blood Gas Inspired Oxygen 100 Lactic Acid Level 1.7 Total Bilirubin 3.2 Aspartate Amino Transf 73 (AST/SGOT) Alanine Aminotransferase 82 (ALT/SGPT) Alkaline Phosphatase 90 Total Protein 6.5 Albumin 3.7 Date/Time Procedure Status Source Growth 11/09/16 11:32 Aerobic Blood Culture Received Blood Peripheral Pending 11/09/16 11:32 Anaerobic Blood Culture Received Blood Peripheral Pending 11/07/16 11:05 Aerobic Blood Culture - Preliminary Resulted Blood Line Viridans Streptococcus Grp 11/07/16 11:05 Anaerobic Blood Culture - Preliminary Resulted Blood Line NO GROWTH IN 2 DAYS 11/06/16 20:45 Urine Culture - Final Complete Urine Catheterized Urine 10-50,000 CFU/ML MIXED VIJAY... Result Diagram: 11/10/16 0450 11/10/16 0450 Imaging Last Impressions Head CT 11/09/16 0000 Signed Impressions: Service Date/Time: Wednesday, November 09, 2016 20:07 - CONCLUSION: 1. Suspected subacute infarcts in both posterior cerebral artery distributions, right worse than left. 2. Intraparenchymal bleed versus hemorrhagic mass left frontal lobe. MRI of the brain with and without contrast is recommended. Mookie Scales MD Chest X-Ray 11/09/16 0000 Signed Impressions: Service Date/Time: Wednesday, November 09, 2016 18:46 - CONCLUSION: Right mainstem bronchus intubation. Worsening bilateral airspace disease. Mookie Scales MD Brain MRI 11/09/16 0000 Signed Impressions: Service Date/Time: Wednesday, November 09, 2016 20:28 - CONCLUSION: 1. Widespread bilateral infarcts as above, several weeks in age or older. 2. Focal intra- axial mass with surrounding hemorrhage of the left frontal lobe. The lesion itself appears to be fairly small, probably about 15 mm in size. The hemorrhage is about 3.4 cm. Mookie Scales MD Lower Extremity Ultrasound 11/07/16 0000 Signed Impressions: Service Date/Time: Monday, November 07, 2016 09:33 - CONCLUSION: No DVT of the left lower extremity. Nonspecific subcutaneous edema. Mookie Scales MD Assessment and Plan Diagnosis: (1) Septic brain emboli/early abscess Plan: The MRI shows a new 15 mm lesion in the left frontal lobe with surrounding cytotoxic edema and small SAH, minimal mass effect. There is not enough edema at this time to justify the use of decadron. Encephalomalacia is present with severe atrophy present in the right parietal lobe, both occipital lobes and hippocampus on the right. Diffusion scan shows no new ischemia. There is no hydrocephalus or obstruction. MRA shows an open bois forte of Romeo and decreased flow in the areas of encephalomalacia. Agree with seizure prophylaxis with keppra, avoid hypotension, hypovolemia, monitor coagulopathy. Will follow radiologically and clinically . Jaswant Craig Nov 10, 2016 10:25
[2016-11-10 11:33] LABS: INTERNATIONAL NORMALIZED RATIO 1.3 RATIO; PROTHROMBIN TIME - PATIENT 14.1 SEC (9.8-11.6)
--- NOTE | 2016-11-10 13:27 | MB ---
cc: AIDAN DEL RIO M.D. DATE OF CONSULTATION: 11/10/2016 HISTORY OF PRESENT ILLNESS She is a 26-year-old seen in neurological consultation in regards to new onset seizures yesterday. I do not have more details about this. I spoke to the RN and reviewed the patient's recent records including MRI of brain yesterday and CT brain. Today she just came back from an MRA. She is 26 with a history of IV drug use and endocarditis, status post aortic and mitral valve replacement. She apparently had the last surgery in September. She was admitted this time on the with shortness of breath and she is being treated for sepsis and endocarditis. She has been critically ill, has had septic shock, has severe congestive heart failure, supratherapeutic INR and thrombocytopenia. The patient was lethargic, stuporous and with stimulation she awoke and even started following some commands. She falls back asleep when left alone. She is moving all four extremities upon stimulation. She appears to have some spastic findings on the left side with brisker reflex on the left and bilateral upgoing toes, left more prominent than the right. The pupils were about the same size and probably reactive. MEDICATIONS Current medication list includes - 1. Vancomycin. 2. Metronidazole. 3. Midazolam. 4. Fentanyl. 5. Keppra. 6. Lorazepam. 7. Penicillin. IMAGING A CT brain MRI brain shows a left frontal hemorrhagic appearing lesion with mild mass effect. There are extensive areas of infarction mostly posteriorly which are old and this is not causing any mass effect. ASSESSMENT AND RECOMMENDATIONS 1. New onset seizures. 2. Status post bihemisphere cerebral infarcts presumably from septic embolism/endocarditis. 3. Status post valve replacement. 4. Apparent persistent endocarditis and sepsis. She is already scheduled for an EEG. She is being followed by multiple other physicians. Continue the Keppra and doses may need to be adjusted but we will wait on the EEG. I will follow the neurological course. Thank you for asking us to assist in her care. MD BHUPINDER Farah/MAUREEN /10:17 AM /1:13 PM
--- NOTE | 2016-11-10 14:32 | HHI.IDPN ---
Note Infectious Disease Note ID coverage. Patient had a seizure and was placed on the vent. Notes reviewed No fever Sedated. Echo shows mobile structure on prosthetic valve. BC has strep viridans. 4 bottles. Patient denied IVDU - states last used was before her surgery CT /MRI of head noted. Antibiotics Vanco Penicillin Lines Central line Past Medical History Hospitalization from October to December 2015 for infective endocarditis and subsequent complication Hospitalization June 22 to July 23 for CHF and cervical discitis She's had CVA with subarachnoid hemorrhage, embolic lesions to the brain lungs and spleen as a result of her endocarditis Known IV drug use, patient states last time she used was prior to her hospitalization in August 2016 Bilateral sacroiliitis CVA with residual left-sided hemiplegia Past Surgical History Surgery on her discitis last July 09, 2016 AVR, MVR with tissue valve September 07, 2016 Allergies: Coded Allergies: *MDRO Multi-Drug Resistant Organism (Verified Adverse Reaction, Unknown, ) MRSA PCR screen POSITIVE- 10/18/2015 & 08/12/16 MRSA (urine, blood, 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 in sputum 2016 Objective . Vital Signs Date Time Temp Pulse Resp B/P Pulse Ox O2 Delivery O2 Flow Rate FiO2 11/10/16 14:00 76 11/10/16 13:11 97 40 11/10/16 12:00 96.6 75 16 107/76 99 11/10/16 12:00 75 11/10/16 10:00 86 11/10/16 09:46 100 100 11/10/16 08:00 75 11/10/16 08:00 96.8 76 16 108/80 100 11/10/16 07:28 100 40 11/10/16 07:00 100 Mechanical Ventilator 40 11/10/16 06:00 79 11/10/16 04:00 84 11/10/16 04:00 97.9 84 16 99/63 99 11/10/16 03:20 24 40 11/10/16 02:00 81 11/10/16 01:30 100 70 11/10/16 00:00 98.6 86 16 104/69 99 11/10/16 00:00 82 11/09/16 22:00 81 11/09/16 21:35 100 70 11/09/16 21:10 100 100 3/10/17 20:15 100 100 11/09/16 20:00 Mechanical Ventilator 11/09/16 20:00 100.8 97 16 115/84 99 11/09/16 20:00 97 11/09/16 19:55 100 11/09/16 18:12 98 100 11/09/16 18:00 132 11/09/16 16:00 101.1 115 30 126/77 96 11/09/16 16:00 115 Laboratory Tests Test 11/09/16 11/09/16 11/10/16 03:45 18:45 04:50 White Blood Count 8.2 TH/MM3 14.3 TH/MM3 9.3 TH/MM3 Red Blood Count 3.19 MIL/MM3 3.33 MIL/MM3 3.09 MIL/MM3 Hemoglobin 9.8 GM/DL 9.8 GM/DL 9.3 GM/DL Hematocrit 29.6 % 32.5 % 28.8 % Mean Corpuscular Volume 92.9 FL 97.6 FL 93.1 FL Mean Corpuscular Hemoglobin 30.6 PG 29.6 PG 30.0 PG Mean Corpuscular Hemoglobin 32.9 % 30.3 % 32.2 % Concent Red Cell Distribution Width 20.3 % 21.8 % 20.4 % Platelet Count 31 TH/MM3 46 TH/MM3 41 TH/MM3 Mean Platelet Volume 9.5 FL 9.7 FL 9.2 FL Neutrophils (%) (Auto) 76.5 % 84.3 % 73.9 % Lymphocytes (%) (Auto) 15.8 % 11.3 % 17.8 % Monocytes (%) (Auto) 6.5 % 4.1 % 7.2 % Eosinophils (%) (Auto) 0.7 % 0.1 % 0.6 % Basophils (%) (Auto) 0.5 % 0.2 % 0.5 % Neutrophils # (Auto) 6.3 TH/MM3 12.0 TH/MM3 6.9 TH/MM3 Lymphocytes # (Auto) 1.3 TH/MM3 1.6 TH/MM3 1.7 TH/MM3 Monocytes # (Auto) 0.5 TH/MM3 0.6 TH/MM3 0.7 TH/MM3 Eosinophils # (Auto) 0.1 TH/MM3 0.0 TH/MM3 0.1 TH/MM3 Basophils # (Auto) 0.0 TH/MM3 0.0 TH/MM3 0.0 TH/MM3 CBC Comment AUTO DIFF AUTO DIFF AUTO DIFF Differential Comment AUTO DIFF FINAL DIFF AUTO DIFF CONFIRMED MANUAL CONFIRMED Platelet Estimate LOW LOW LOW Platelet Morphology Comment NORMAL NORMAL NORMAL Target Cells 1+ Ovalocytes 1+ 1+ Differential Total Cells 100 Counted Neutrophils % (Manual) 84 % Band Neutrophils % 4 % Lymphocytes % 7 % Monocytes % 4 % Neutrophils # (Manual) 12.7 TH/MM3 Myelocytes 1 % Laboratory Tests Test 11/08/16 11/09/16 11/09/16 11/09/16 21:21 03:45 18:45 22:25 Potassium Level 3.6 MEQ/L 3.7 MEQ/L 4.8 MEQ/L Phosphorus Level 1.7 MG/DL 3.5 MG/DL Magnesium Level 1.8 MG/DL 2.0 MG/DL Sodium Level 140 MEQ/L 138 MEQ/L Chloride Level 100 MEQ/L 100 MEQ/L Carbon Dioxide Level 33.2 MEQ/L 21.7 MEQ/L Anion Gap 7 MEQ/L 16 MEQ/L Blood Urea Nitrogen 16 MG/DL 15 MG/DL Creatinine 0.55 MG/DL 0.83 MG/DL Estimat Glomerular Filtration 133 ML/MIN 82 ML/MIN Rate Random Glucose 107 MG/DL 120 MG/DL Calcium Level 8.1 MG/DL 7.7 MG/DL Total Bilirubin 2.4 MG/DL Aspartate Amino Transf 95 U/L (AST/SGOT) Alanine Aminotransferase 97 U/L (ALT/SGPT) Alkaline Phosphatase 97 U/L Total Protein 6.3 GM/DL Albumin 3.4 GM/DL Total Creatine Kinase 27 U/L Troponin I 1.05 NG/ML Thyroid Stimulating Hormone 5.040 uIU/ML 3rd Gen Lactic Acid Level 1.7 mmol/L Test 11/10/16 04:50 Sodium Level 140 MEQ/L Potassium Level 3.6 MEQ/L Chloride Level 102 MEQ/L Carbon Dioxide Level 28.3 MEQ/L Anion Gap 10 MEQ/L Blood Urea Nitrogen 12 MG/DL Creatinine 0.54 MG/DL Estimat Glomerular Filtration 135 ML/MIN Rate Random Glucose 83 MG/DL Calcium Level 8.6 MG/DL Phosphorus Level 1.4 MG/DL Magnesium Level 1.9 MG/DL Total Bilirubin 3.2 MG/DL Aspartate Amino Transf 73 U/L (AST/SGOT) Alanine Aminotransferase 82 U/L (ALT/SGPT) Alkaline Phosphatase 90 U/L Total Protein 6.5 GM/DL Albumin 3.7 GM/DL Microbiology Date/Time Procedure Status Source Growth 11/09/16 11:22 Aerobic Blood Culture - Preliminary Resulted Blood Peripheral NO GROWTH IN 1 DAY 11/09/16 11:22 Anaerobic Blood Culture - Preliminary Resulted Blood Peripheral NO GROWTH IN 1 DAY 11/09/16 11:32 Aerobic Blood Culture - Preliminary Resulted Blood Peripheral NO GROWTH IN 1 DAY 11/09/16 11:32 Anaerobic Blood Culture - Preliminary Resulted Blood Peripheral NO GROWTH IN [address] 11/09/16 0000 Signed Impressions: Service Date/Time: Wednesday, November 09, 2016 20:07 - CONCLUSION: 1. Suspected subacute infarcts in both posterior cerebral artery distributions, right worse than left. 2. Intraparenchymal bleed versus hemorrhagic mass left frontal lobe. MRI of the brain with and without contrast is recommended. Mookie Scales MD Chest X-Ray 11/09/16 0000 Signed Impressions: Service Date/Time: Wednesday, November 09, 2016 18:46 - CONCLUSION: Right mainstem bronchus intubation. Worsening bilateral airspace disease. Mookie Scales MD Brain MRI 11/09/16 0000 Signed Impressions: Service Date/Time: Wednesday, November 09, 2016 20:28 - CONCLUSION: 1. Widespread bilateral infarcts as above, several weeks in age or older. 2. Focal intra- axial mass with surrounding hemorrhage of the left frontal lobe. The lesion itself appears to be fairly small, probably about 15 mm in size. The hemorrhage is about 3.4 cm. Mookie Scales MD Chest X-Ray 11/08/16 0600 Signed Impressions: Service Date/Time: October 02:25 - CONCLUSION: Persistent bibasilar effusions with associated airspace disease. No interval change. Milan Aguilar MD Lower Extremity Ultrasound 11/07/16 0000 Signed Impressions: Service Date/Time: Monday, November 07, 2016 09:33 - CONCLUSION: No DVT of the left lower extremity. Nonspecific subcutaneous edema. Mookie Scales MD Physical Exam GENERAL: Intubated. SKIN: Cool and dry. No generalized rash, no ecchymosis, no peripheral embolic lesions. HEAD: Atraumatic. Normocephalic. No temporal or scalp tenderness. HEENT: Mellette conjunctivae, no petechia or hemorrhage. No scleral icterus. Moist mucosa. NECK: Trachea midline. No JVD or lymphadenopathy. Supple, nontender, no meningeal signs. CARDIOVASCULAR: Regular rate and rhythm. LARRY. RESPIRATORY: Coarse breath sounds bilaterally. GASTROINTESTINAL: Abdomen soft, non-tender. No masses palpable. MUSCULOSKELETAL: Extremities without clubbing, cyanosis. No edema. NEUROLOGICAL: Awake and alert. L hemiparesis, has some movement in her LLE but not in her LUE PSYCH: Unable to fully assess. LINE: Central line with no evidence of infection : Carter cath in place, clear urine. Assessment & Plan Remarks IMPRESSION Sepsis/Recurrent endocarditis. Prosthetic aortic valve endocarditis. Strep viridans. Respiratory failure, etiology? - CHF, has known low EF S/P AVR and MVR for severe AI and MR due to IE Episode of IE last year with complications History of IVDU Seizure. RECOMMENDATION Continue Penicillin IV. Stop Vanco Monitor progress Saeid Suero MD Nov 10, 2016 14:32
[2016-11-10 18:25] LABS: INTERNATIONAL NORMALIZED RATIO 1.2 RATIO; PROTHROMBIN TIME - PATIENT 13.6 SEC (9.8-11.6)
--- NOTE | 2016-11-10 20:32 | HHI.CCPN ---
Subjective Remarks/Hospital Course 26 y/o s/p MVR, AVR September 03 for endocarditis. She continued to use iv drugs until mid-October. Presents now with gross fluid overload and hypoxemic respiratory failure, with severe sepsis 11/07/16: Patient remains in septic shock and respiratory failure, remains on dobutamine, Levophed added. Requiring BiPAP. White count slightly improved 26, 000 from [id number]. 2-D echo showed possible large vegetation on the prosthetic aortic valve 11/08/16: Currently remains on 1 mcg/m of Levophed, 2.5 mg per KG per minute of dobutamine. Breathing improved currently on 3 L nasal cannula. Urine output 8.6 L in 24 hours with diuresis. Chest x-ray shows persistent bilateral effusion. 2d Echo showing probable AV vegetation. 11/09 Patient is off Levophed. Remains on dobutamine. Afebrile. Awake and alert on 2L oxygen. 11/10: yesterday afternoon had witnessed GTC seizure with associated hypoxic respiratory failure requiring emergent re-intubation. MRI at that time demonstrated multiple new and subacute infarcts as well as a left frontal mass vs. abscess. cultures persistently positive with strep viridans. this morning, weakly following commands in LUE. Objective Vital Signs Date Time Temp Pulse Resp B/P Pulse Ox O2 Delivery O2 Flow Rate FiO2 11/10/16 18:00 86 11/10/16 16:00 97.2 16 108/81 100 11/10/16 15:21 40 11/10/16 07:00 Mechanical Ventilator 11/09/16 07:54 2.00 Intake and Output 11/09/16 11/09/16 11/10/16 08:00 16:00 00:00 Intake Total 1400 ml 1008 ml 891 ml Output Total 700 ml 1300 ml 1200 ml Balance 700 ml -292 ml -309 ml Result Diagram: 11/10/16 0450 11/10/16 0450 Imaging Last Impressions Chest X-Ray 11/08/16 0600 Signed Impressions: Service Date/Time: October 02:25 - CONCLUSION: Persistent bibasilar effusions with associated airspace disease. No interval change. Milan Aguilar MD Lower Extremity Ultrasound 11/07/16 0000 Signed Impressions: Service Date/Time: Monday, November 07, 2016 09:33 - CONCLUSION: No DVT of the left lower extremity. Nonspecific subcutaneous edema. Mookie Scales MD Objective Remarks GENERAL: Patient is 26 yo critically ill on dobutamine, intubated, sedated. SKIN: Warm and dry. HEAD: Normocephalic. EYES: No scleral icterus. No injection or drainage. NECK: Supple, trachea midline. No JVD or lymphadenopathy. CARDIOVASCULAR: Regular rate and rhythm , 3/6 Systolic murmur in apex and aortic area RESPIRATORY: Breath sounds equal bilaterally. orotracheally intubated. on PRVC. GASTROINTESTINAL: Abdomen soft, non-tender, nondistended. MUSCULOSKELETAL: No cyanosis, or edema. Neuro: RASS -3. weakly follows commands in LUE. 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 Her course has now been complicated by GTC seizures likely secondary to multiple new septic embolic strokes. Dr. Meier has weighed in and there is no surgical option for her. From a neurosurgical standpoint, not a good operative candidate for biopsy of her left frontal mass or drainage from any intracranial abscess. From a cardiology standpoint, I have spoken with Dr. Blanc who agrees we have failed both medical and surgical options for the treatment of her recurrence of her endocarditis. I sat down and had a long talk with the patient's mother where I explained all of these things. I explained the natural course of refractive endocarditis is that she will continue to have additional strokes and other embolic complications as well as recurrent episodes of sepsis/septic shock. Even if we were to make modest improvements, she would still require life-long IV antibiotic therapy. I do not think the medical community has anything additional to offer this unfortunate 26yF, as she has failed all the therapy we have available to her. We will re-engage palliative care. Her mother continues to want aggressive care. I explained that this would likely involve tracheostomy and PEG tube, and she expressed understanding. Her prognosis remains poor. She remains critically ill at this time. Plan by systems: Neurologic: Acute on Chronic pain IV drug abuse, with relapse History of CVA with residual left-sided weakness Multiple new embolic CVAs Left frontal mass --propofol for goal RASS -2. 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 Blanc, --Cardiothoracic surgery consulted patient is not a candidate for valvular re do surgery due to active drug use IV Lasix 20 mg every 12, IV albumin 25 g IV every 12 --Aldactone 50 mg every 12 --Off Levophed, keep dobutamine today for inotropic support. On ASA, Ramipril 2.5mg daily, Coreg 3.125mg BID Renal: Acute Kidney insufficiency Metabolic acidosis --Monitor renal function, I/O's, electrolytes replacement as needed -On Lasix 20mg Q12, Aldactone 50mg BID, KCl 30meq daily, Albumin 25gms Q12 GI: Acute protein calorie malnutrition -Elevated LFT's...trending down On heart healthy diet, --Monitor LFT's. Heme: Supratherapeutic INR History of Bilateral lower lobe subsegmental pulmonary embolism History of nonocclusive left femoral vein DVT 08/20 Anemia, Thrombocytopenia -holding anticoagulation given intracranial hemorrhage. -Monitor CBC coags ID: Gram positive Bacteremia Probable prosthetic aortic valve vegetation Septic shock Previous MRSA endocarditis --Continue vancomycin, Cefepime 2 gm IV q8. Cardiology cardiothoracic surgery consulted-not a surgical candidate --ID is following Endocrine: -- Electrolyte replacement per protocol --SSI if needed for glycemic control Prophylaxis: GI Prophylaxis Protonix 40 mg IV daily 24 hours DVT Prophylaxis -- SCDs Holding pharmacologic DVT prophylaxis in the setting of intracranial hemorrhage. This patient remains critically ill with one or more organ systems which are or may become a threat to life. I have spent in excess of 62 minutes discontinuously in the care and management of this patient. This time is exclusive of procedures, and includes, but is not limited to, evaluation of the patient, review of the medical record, discussions with family, consultants, nursing staff, or respiratory therapy, and documentation in the medical record. Problem Qualifiers (1) Prosthetic valve endocarditis: Qualified Code: T82.6XXA - Prosthetic valve endocarditis, initial encounter David Lynn MD Nov 10, 2016 20:32
--- NOTE | 2016-11-10 21:48 | MG ---
cc: AIDAN DEL RIO MD Lab No: Date: 11/10/16 Age: 26 Sex: F Race: REQUESTING PHYSICIAN Dr. Perez. An EEG was obtained on this 26-year-old patient being evaluated for possible seizures. MEDICATIONS 1. Midazolam 2. Fentanyl. 3. Keppra. 4. Metronidazole The EEG is showing continuous bilateral slowing characterized by theta and some delta rhythms. There is alpha activity which appears to be poorly reactive and there are beta rhythms as well. The patient is intubated and sedated. The slowing is more pronounced on the right than left. Photic stimulation disclosed no significant change. Towards the end, there appears to be some mild background reactivity. INTERPRETATION Abnormal EEG because of continuous bilateral slowing maximum right suggestive of right more than left hemisphere structural abnormalities. No ictal pattern or distinct epileptiform features present. Aidan Del Rio MD [facility]/[place] /9:12 PM /9:31 PM
[2016-11-10 22:16] LABS: APTT (PATIENT) 29.7 SEC (24.3-30.1); INTERNATIONAL NORMALIZED RATIO 1.2 RATIO; PROTHROMBIN TIME - PATIENT 13.4 SEC (9.8-11.6)
[2016-11-10] MEDS: PANTOPRAZOLE SODIUM 40 MG VIAL IV PUSH SCH (23:09)
[2016-11-11] VITALS (18 sets, daily range): BP systolic 104–117; BP diastolic 67–81; PULSE 84–99; RESP 16–19; TEMP 98.8–99.5; O2SAT 98–100
[2016-11-11] MEDS: metroNIDAZOLE 500 MG INJ 100 ML IV SCH ×3 (03:19→20:11)
[2016-11-11] MEDS: ALBUMIN HUMAN 25% 25 GM/100 ML BAGP IV SCH ×2 (03:19→14:59)
[2016-11-11] MEDS: PENICILLIN G POTASSIUM INJ 3,000,000 UNITS in SODIUM CHLORIDE 0.9% INJ 100 ML IV SCH ×6 (03:19→21:27)
[2016-11-11] MEDS: RESP: ALBUTEROL 2.5 MG/IPRATROPIUM 0.5 MG NEB (SCH) NEB ×3 (04:04→20:45)
[2016-11-11] MEDS: levETIRAcetam INJ 500 MG in SODIUM CHLORIDE 0.9% INJ 100 ML IV SCH ×2 (05:03→17:55)
[2016-11-11 06:05] LABS: INTERNATIONAL NORMALIZED RATIO 1.3 RATIO
[2016-11-11] MEDS: CHLORHEXIDINE 0.12% (ORAL KIT) 15 ML CUP MT SCH ×2 (08:49→20:11)
--- NOTE | 2016-11-11 08:49 | HHI.NSPN ---
History Chief Complaint: new left frontal infarct Interval History She is still intubated and on dobutamine but weaning from the versed. She opens her eyes and is purposeful with the right hand, GCS [id number] = 10T. Review of Systems General: Negative for: fever, chills, insomnia Respiratory: Negative for: shortness of breath, cough, sputum Cardiovascular: Negative for: chest pain, palpitations, orthopnea Gastrointestinal: Negative for: nausea, vomitting, diarrhea, constipation Exam Results Vital Signs Date Time Temp Pulse Resp B/P Pulse Ox O2 Delivery O2 Flow Rate FiO2 11/11/16 08:09 100 40 11/11/16 08:00 97 11/11/16 07:00 Mechanical Ventilator 11/11/16 04:00 99.3 19 109/81 11/09/16 07:54 2.00 Intake and Output 11/10/16 11/10/16 11/11/16 08:00 16:00 00:00 Intake Total 912 ml 978 ml 782 ml Output Total 1250 ml 2450 ml 1250 ml Balance -338 ml -1472 ml -468 ml Physical Examination Arousable, interactive, pupils equal, reactive Spasticity, old on the left side including left Gordon and Babinski signs, Left sided weakness or neglect, old Purposeful with the right upper and lower extremity, withdraws the left lower extremity Lab, Micro, Other Results Laboratory Tests Test 11/10/16 11/10/16 11/10/16 11/11/16 10:15 17:20 21:30 05:24 Prothrombin Time 14.1 SEC 13.6 SEC 13.4 SEC 14.0 SEC Prothromb Time International 1.3 RATIO 1.2 RATIO 1.2 RATIO 1.3 RATIO Ratio Activated Partial 29.7 SEC Thromboplast Time Medical Decision Making Impression and Plan New left frontal septic embolus with associated hemorrhage, and minimal mass effect, will follow. She is stable hemodynamically and neurologically at this time. Jaswant Craig Nov 11, 2016 08:49
[2016-11-11] MEDS: FERROUS SULFATE 325 MG (65 MG ELEMENTAL IRON) TAB PO SCH ×2 (09:00→20:11)
[2016-11-11] MEDS: ASPIRIN 81 MG CHEW TAB PO SCH (09:00)
--- NOTE | 2016-11-11 09:12 | HHI.FPPN ---
Subjective Remarks Pt seen and examined this AM. Remains intubated but more alert today and following commands. Able to squeeze right hand and wiggle toes of both feet but no movement from the left hand which is about stable from her prior CVA. ( Delfina Bojorquez MD) Objective Vitals Vital Signs Date Time Temp Pulse Resp B/P Pulse Ox O2 Delivery O2 Flow Rate FiO2 11/11/16 08:09 100 40 11/11/16 08:00 40 11/11/16 08:00 97 11/11/16 07:00 97 Mechanical Ventilator 40 11/11/16 06:00 87 11/11/16 04:04 100 40 11/11/16 04:00 87 11/11/16 04:00 99.3 91 19 109/81 99 11/11/16 04:00 40 11/11/16 02:00 87 11/11/16 01:21 100 40 11/11/16 00:00 87 11/11/16 00:00 99.5 92 16 108/74 100 11/11/16 00:00 40 11/10/16 22:00 87 11/10/16 21:28 99 40 11/10/16 20:00 99 Mechanical Ventilator 40 11/10/16 20:00 98.4 88 18 106/73 100 11/10/16 20:00 88 11/10/16 20:00 40 11/10/16 18:00 86 11/10/16 16:00 78 11/10/16 16:00 97.2 78 16 108/81 100 11/10/16 15:21 100 40 11/10/16 14:00 76 11/10/16 13:11 97 40 11/10/16 12:00 96.6 75 16 107/76 99 11/10/16 12:00 75 11/10/16 10:00 86 11/10/16 09:46 100 100 I/O 11/10/16 11/10/16 11/10/16 11/11/16 11/11/16 11/11/16 07:00 15:00 23:00 07:00 15:00 23:00 Intake Total 912 ml 978 ml 782 ml 656 ml Output Total 1250 ml 2450 ml 1250 ml 900 ml Balance -338 ml -1472 ml -468 ml -244 ml IV Total 812 ml 878 ml 782 ml 556 ml Albumin 100 ml 100 ml 100 ml Output Urine Total 1200 ml 2300 ml 1200 ml 800 ml Gastric Drainage Total 50 ml 150 ml 50 ml 100 ml # Bowel Movements 0 0 0 0 (Delfina Bojorquez MD) Result Diagram: 11/10/1644911/10/16449 Objective Remarks GENERAL: female laying in bed intubated. SKIN: Warm and dry. R subclavian central line with no surrounding erythema. HEENT: AT/NC. Pupils equal and round. MMM. HEART: RRR with 3/6 LARRY heard throughout. LUNGS: Anterior lung sounds clear to auscultation. ABDOMEN: Soft, NT, ND. EXTREMITIES: No significant LE edema. NEURO: Follows commands. 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 Left-sided hemiparesis with left hand in contracture. 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 Blood cultures growing Strep viridans. Critical care managing the patient. Infectious disease managing antibiotic coverage. Cardiology and CT surgery consulted; patient not a candidate for a second valve replacement since she already has both MV and AV replaced in September and there is a question of current drug use. Patient had a new-onset seizure with respiratory failure on 11/09 and was subsequently intubated. MRI showing mass with surrounding hemorrhage of left frontal lobe. Neurology and neurosurgery consulted. 1. Severe sepsis/septic shock from Strep viridans bacteremia and suspected infective endocarditis - Patient presented with tachycardia, tachypnea, leukocytosis with white count 27.4, and lactic acid 10.0 with evidence of end-organ dysfunction including NITISH , transaminitis, and elevated troponins - 11/05 systolic ejection murmur suggestive of possible recurrent infective endocarditis though patient denies drug use since August before her AV and MV replacements - 2D echo suggestive of AV vegetation - Line and blood cultures growing Strep viridans - Repeat blood cultures on 11/09 show no growth - ID managing antibiotics * Continue PCN (started 11/09) * Vanco (11/06-11/09) and cefepime (11/06-11/09) discontinued - Continues to be on dobutamine drip - ID and critical care managing patient. Appreciate their expertise 2. Acute respiratory failure - Patient initially presented on BiPAP with VBG showing severe metabolic acidosis with pH 7.19 - Admission CXR showing bilateral consolidations and pleural effusions, L>R - Respiratory status improved initially and patient was on 2L nasal cannula up until 11/09 when she had a seizure and was not able to protect her airways therefore underwent intubation - Sats maintaining at 97-100% on mechanical ventilation - Weaning from Versed 3. Intracranial hemorrhage - MRI showing widespread bilateral infarcts and focal intra-axial mass with surrounding hemorrhage of the left frontal lobe - ?Embolic focus with surrounding hemorrhage - MRA showing abrupt decrease in flow at M2 branches of right MCA - Vitamin K given 11/09 since Coumadin was >5 - Neurosurgery consulted; recommended continuing with Keppra and maintaining adequate BPs 4. CHF exacerbation/fluid overload - 2D echo with EF 20-25% - Continue to diurese >4L UOP in past 24 hours - Continue spironolactone and Lasix - Home carvedilol and ramipril but hold for hypotension - Albumin BID per critical care 5. Thrombocytopenia - Acute during this admission likely secondary to septic shock and coagulopathy - Monitor closely 6. History of PE - INR supratherapeutic on admission therefore Coumadin was held - Now patient with intracranial breed and INR down to 1.3 today - Vitamin K given on 11/09 FEN: - Fluids:Receiving volume through various drips and IV medications. Avoid additional secondary to cardiogenic shock - Electrolytes: Replete per protocol - Nutrition: NPO - GI prophylaxis: Protonix - DVT prophylaxis: Anticoagulation C/I given intracranial bleed and initial INR supratherapeutic arnaldo Pires Discharge Planning Unclear discharge timetable right now. (Delfina Bojorquez MD) Attending Attestation Patient seen and examined. Case reviewed and discussed with the resident team. Agree with plan of care as discussed with me and documented in the resident note. (Gladys Pires MD) Problem List: (1) Septic shock Status: Acute (2) Gram-positive bacteremia Status: Acute (3) Chronic systolic (congestive) heart failure Status: Chronic (4) Acute respiratory failure Status: Resolved (5) Seizure Status: Acute (6) Thrombocytopenia Status: Acute (7) CHF exacerbation Status: Acute (8) Hepatitis C Status: Chronic (Delfina Bojorquez MD) Problem Qualifiers (1) Acute respiratory failure: Qualified Code: J96.01 - Acute respiratory failure with hypoxia (2) Hepatitis C: Qualified Code: B18.2 - Chronic hepatitis C without hepatic coma Delfina Bojorquez MD Nov 11, 2016 09:12 Gladys Pires MD Nov 14, 2016 15:05
[2016-11-11] MEDS: SODIUM CHLORIDE 0.9% FLUSH 5 ML FLUSH FLUSH SCH ×2 (09:19→20:10)
[2016-11-11] MEDS: CARVEDILOL 3.125 MG TAB PO SCH ×2 (09:21→20:11)
[2016-11-11] MEDS: LACTOBACILLUS ACIDOPHILUS TAB PO SCH ×2 (09:22→20:11)
[2016-11-11] MEDS: CITALOPRAM HYDROBROMIDE 40 MG TAB PO SCH (09:22)
[2016-11-11] MEDS: FUROSEMIDE 40 MG/4 ML VIAL IV PUSH SCH ×2 (09:22→20:10)
[2016-11-11] MEDS: SPIRONOLACTONE 50 MG TAB PO SCH ×2 (09:22→17:55)
[2016-11-11] MEDS: POTASSIUM CHLORIDE 10 MEQ CONTROLLED RELEASE TAB PO SCH (09:22)
[2016-11-11] MEDS: DOCUSATE SODIUM 100 MG CAP PO SCH ×2 (09:24→23:36)
[2016-11-11] MEDS: fentaNYL DRIP 250 ML IV SCH ×2 (10:20→22:24)
[2016-11-11 12:18] LABS: INTERNATIONAL NORMALIZED RATIO 1.2 RATIO; PROTHROMBIN TIME - PATIENT 13.5 SEC (9.8-11.6)
[2016-11-11] MEDS: DOBUTamine 250 MG/D5W 250 ML PREMIX DRIP IV SCH (12:42)
--- NOTE | 2016-11-11 12:52 | HHI.PR ---
Review/Management Diagnosis/Plan: (1) Septic brain emboli/early abscess Plan: The MRI shows a new 15 mm lesion in the left frontal lobe with surrounding cytotoxic edema and small SAH, minimal mass effect. There is not enough edema at this time to justify the use of decadron. Encephalomalacia is present with severe atrophy present in the right parietal lobe, both occipital lobes and hippocampus on the right. Diffusion scan shows no new ischemia. There is no hydrocephalus or obstruction. MRA shows an open [place] and decreased flow in the areas of encephalomalacia. Agree with seizure prophylaxis with keppra, avoid hypotension, hypovolemia, monitor coagulopathy. Will follow radiologically and clinically . Daily Summary 11/12 no seizure recurrence reported she is following commands and moves limbs promptly with spastic left hemiparesis able to count fingers violeta continue keppra, eeg nonepileptiform though violeta abn Subjective Subjective Comments No acute neuro events reported Active Medications Current Medications Medications (Trade) Dose Ordered Sig/Nicky Route Start Time Stop Time Status Last Admin (NS Flush) 2 ml UNSCH PRN FLUSH 11/06/16 22:45 (NS Flush) 2 ml BID FLUSH 11/06/16 22:45 11/11/16 09:19 (Tylenol) 650 mg Q4H PRN PO 11/06/16 22:45 (Zofran Inj) 4 mg Q6H PRN IVP 11/06/16 22:45 (Colace) 100 mg Q12H PO 11/06/16 22:45 11/11/16 09:24 (Narcan Inj) 0.4 mg UNSCH PRN IV 11/06/16 22:45 (Proair Hfa Inh) 2 puff Q4HR PRN INH 11/06/16 23:00 (Coreg) 3.125 mg Q12HR PO 11/06/16 23:00 11/11/16 09:21 (CeleXA) 40 mg DAILY PO 11/07/16 09:00 11/11/16 09:22 (Colace) 100 mg BID PRN PO 11/06/16 23:00 (Ferrous Sulfate) 325 mg BID PO 11/07/16 09:00 11/10/16 19:51 ([place] 5-325 Mg) 1 tab Q8HR PRN PO 11/06/16 23:00 11/09/16 17:02 (Altace) 2.5 mg DAILY PO 11/07/16 09:00 11/09/16 09:25 (Restoril) 7.5 mg HS PRN PO 11/06/16 23:00 (Aspirin Chew) 81 mg DAILY PO 11/07/16 09:00 11/10/16 10:20 Pantoprazole Sodium 40 mg 40 mg Q24H IV PUSH 11/07/16 00:00 11/10/16 23:09 Dobutamine HCl/ Dextrose 250 ml @ 0 mls/hr Q0M IV 11/07/16 02:15 11/11/16 12:42 (Levophed-Dextrose Drip) 250 ml @ 0 mls/hr TITRATE IV 11/07/16 12:00 (Albumin 25% Inj) 25 gm Q12H IV 11/07/16 15:00 11/11/16 03:19 Spironolactone 50 mg 50 mg BID@09,18 PO 11/07/16 18:00 11/11/16 09:22 Potassium Chloride 100 ml @ 50 mls/hr Q2H PRN IV 11/08/16 06:30 11/08/16 06:34 Potassium Chloride 100 ml @ 50 mls/hr Q2H PRN IV 11/08/16 06:30 Potassium Chloride 100 ml @ 25 mls/hr UNSCH PRN IV 11/08/16 06:30 Potassium Chloride 100 ml @ 50 mls/hr Q2H PRN IV 11/08/16 06:30 (Magnesium Sulfate Inj/NS Inj) 100 ml @ 50 mls/hr UNSCH PRN IV 11/08/16 06:30 Magnesium Oxide 800 mg 800 mg UNSCH PRN PO 11/08/16 06:30 (Magnesium Sulfate Inj/NS Inj) 100 ml @ 50 mls/hr UNSCH PRN IV 11/08/16 06:30 Potassium Phosphate 2000 mg 2,000 mg Q4H PRN PO 11/08/16 06:30 (Sodium Phosphate Inj/NS 250 ml Inj) 250 ml @ 42 mls/hr UNSCH PRN IV 11/08/16 06:30 11/09/16 00:09 Potassium Phosphate 2000 mg 2,000 mg UNSCH PRN PO/TUBE 11/08/16 06:30 (Potassium Phosphate Inj/NS 250 ml Inj) 260 ml @ 42 mls/hr UNSCH PRN IV 11/08/16 06:30 (Lasix Inj) 20 mg Q12H IV PUSH 11/08/16 21:00 11/11/16 09:22 (KCl) 30 meq DAILY PO 11/08/16 09:45 11/11/16 09:22 Miscellaneous Information SPECIFIC LAB TO BE ... ONCE ONCE XX 11/12/16 04:45 11/12/16 04:46 (Pfizerpen-G Inj/ NS Inj) 100 ml @ 200 mls/hr Q4H IV 11/09/16 14:00 11/11/16 09:23 (Lactinex) 1 tab Q12HR PO 11/09/16 21:00 11/11/16 09:22 Chlorhexidine Gluconate 15 ml 15 ml BID@08,20 MT 11/09/16 20:00 11/11/16 08:49 Midazolam HCl 100 ml @ 0 mls/hr TITRATE IV 11/09/16 18:15 11/10/16 23:09 Fentanyl Citrate 250 ml @ 0 mls/hr TITRATE IV 11/09/16 18:15 11/11/16 10:20 Levetriacetam 500 mg/Sodium Chloride 105 ml @ 420 mls/hr Q12H IV 11/09/16 18:00 11/11/16 05:03 (Flagyl 500 Mg Inj) 100 ml @ 100 mls/hr Q8H IV 11/09/16 20:00 11/11/16 12:39 Allergies Allergies Coded Allergies *MDRO Multi-Drug Resistant Organism (Verified Adverse Reaction, Unknown, ) Exam I&O / VS 11/10/16 11/10/16 11/11/16 15:00 23:00 07:00 Intake Total 978 ml 782 ml 656 ml Output Total 2450 ml 1250 ml 900 ml Balance -1472 ml -468 ml -244 ml IV Total 878 ml 782 ml 556 ml Albumin 100 ml 100 ml Output Urine Total 2300 ml 1200 ml 800 ml Gastric Drainage Total 150 ml 50 ml 100 ml # Bowel Movements 0 0 0 Vital Signs Date Time Temp Pulse Resp B/P Pulse Ox O2 Delivery O2 Flow Rate FiO2 11/11/16 12:00 87 11/11/16 12:00 40 11/11/16 12:00 99.3 87 16 107/77 100 11/11/16 10:00 92 11/11/16 08:09 100 40 11/11/16 08:00 40 11/11/16 08:00 92 11/11/16 08:00 98.8 94 16 117/70 100 11/11/16 07:00 97 Mechanical Ventilator 40 11/11/16 06:00 87 11/11/16 04:04 100 40 11/11/16 04:00 87 11/11/16 04:00 99.3 91 19 109/81 99 11/11/16 04:00 40 11/11/16 02:00 87 11/11/16 01:21 100 40 11/11/16 00:00 87 11/11/16 00:00 99.5 92 16 108/74 100 11/11/16 00:00 40 11/10/16 22:00 87 11/10/16 21:28 99 40 11/10/16 20:00 99 Mechanical Ventilator 40 11/10/16 20:00 98.4 88 18 106/73 100 11/10/16 20:00 88 11/10/16 20:00 40 11/10/16 18:00 86 11/10/16 16:00 78 11/10/16 16:00 97.2 78 16 108/81 100 11/10/16 15:21 100 40 11/10/16 14:00 76 11/10/16 13:11 97 40 Respiratory: Lungs CTA, Non-labored respirations, Symmetrical expansion Cardiology: Normal rate, Normal peripheral perfusion, Regular Rhythm Musculoskeletal: ROM, Other Objective Radiology Results Last 48 hours Impressions Head Magnetic Resonance Angiography 11/10/16 0000 Signed Impressions: Service Date/Time: Thursday, November 10, 2016 09:18 - CONCLUSION: Abrupt decrease in flow at the M2 branches of the right middle cerebral artery. Mookie Razo MD Chest X-Ray 11/10/16 0000 Signed Impressions: Service Date/Time: Thursday, November 10, 2016 03:53 - CONCLUSION: ET tube in good position. Persistent left lower lung consolidation and pleural effusion with infiltrates in the right lower lung. Mo Benson MD Micro and Labs Laboratory Tests Test 11/10/16 11/10/16 11/11/16 11/11/16 17:20 21:30 05:24 11:40 Prothrombin Time 13.6 13.4 14.0 13.5 Prothromb Time International 1.2 1.2 1.3 1.2 Ratio Activated Partial 29.7 Thromboplast Time Date/Time Procedure Status Source Growth 11/09/16 11:32 Aerobic Blood Culture - Preliminary Resulted Blood Peripheral NO GROWTH IN 2 DAYS 11/09/16 11:32 Anaerobic Blood Culture - Preliminary Resulted Blood Peripheral NO GROWTH IN 2 DAYS 11/07/16 11:05 Aerobic Blood Culture - Final Resulted Blood Line Viridans Streptococcus Grp 11/07/16 11:05 Anaerobic Blood Culture - Preliminary Resulted Blood Line NO GROWTH IN 4 DAYS 11/06/16 20:45 Urine Culture - Final Complete Urine Catheterized Urine 10-50,000 CFU/ML MIXED VIJAY... Roxi Benavidez MD Nov 11, 2016 12:52
--- NOTE | 2016-11-11 15:33 | HHI.FPPN ---
Addendum to progress note ADDENDUM Reason for addendum: Additonal documentation Additional information Off-service note Ms. 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 She originally was on BiPAP but was able to wean to nasal cannula after aggressive diuresis. Her blood and line cultures were positive for Strep viridans. Critical care, infectious disease, cardiology, and CT surgery all originally consulted. Unfortunately the patient is not a candidate for a a second valve replacement and will need to be managed medically. She was also found to have a supratherapeutic INR of >8 on admission (takes Coumadin for her valves but also has history of PE) but given that she had no active bleeding her Coumadin was just held. On hospital day 2 (11/08) 2 units FFP were given in case she would need a ROSANGELA but once her blood cultures became positive later that day it was decided against ROSANGELA. She was doing fairly well but later in the day on 11/09 she had a witnessed seizure, went into respiratory failure, and was subsequently intubated. MRI showed a mass in her left frontal lobe with surrounding hemorrhage; EEG was abnormal though no epileptiform activity. Neuro and neurosurgery were consulted who both agreed with continued management with Rashad. Currently the patient is intubated but alert and following commands while being weaned off Versed with critical care managing. She started off on Vancomycin and Cefepime and now she is on penicillin for the endocarditis. Also of note, she was started on Flagyl on for suspected C. diff; PCR was ordered but hasn't been done yet. Delfina Bojorquez MD Nov 11, 2016 15:33
--- NOTE | 2016-11-11 16:13 | HHI.CCPN ---
Subjective Remarks/Hospital Course 26 y/o s/p MVR, AVR September 03 for endocarditis. She continued to use iv drugs until mid-October. Presents now with gross fluid overload and hypoxemic respiratory failure, with severe sepsis 11/07/16: Patient remains in septic shock and respiratory failure, remains on dobutamine, Levophed added. Requiring BiPAP. White count slightly improved 26, 000 from [id number]. 2-D echo showed possible large vegetation on the prosthetic aortic valve 11/08/16: Currently remains on 1 mcg/m of Levophed, 2.5 mg per KG per minute of dobutamine. Breathing improved currently on 3 L nasal cannula. Urine output 8.6 L in 24 hours with diuresis. Chest x-ray shows persistent bilateral effusion. 2d Echo showing probable AV vegetation. 11/09 Patient is off Levophed. Remains on dobutamine. Afebrile. Awake and alert on 2L oxygen. 11/10: yesterday afternoon had witnessed GTC seizure with associated hypoxic respiratory failure requiring emergent re-intubation. MRI at that time demonstrated multiple new and subacute infarcts as well as a left frontal mass vs. abscess. cultures persistently positive with strep viridans. this morning, weakly following commands in LUE. 11/11: more awake this morning. however, failed SBT twice this morning for apnea. Objective Vital Signs Date Time Temp Pulse Resp B/P Pulse Ox O2 Delivery O2 Flow Rate FiO2 11/11/16 14:00 87 11/11/16 13:35 100 40 11/11/16 12:00 99.3 16 107/77 11/11/16 07:00 Mechanical Ventilator 11/09/16 07:54 2.00 Intake and Output 11/10/16 11/10/16 11/11/16 08:00 16:00 00:00 Intake Total 912 ml 978 ml 782 ml Output Total 1250 ml 2450 ml 1250 ml Balance -338 ml -1472 ml -468 ml Result Diagram: 11/10/16 0450 11/10/16 0450 Imaging Last Impressions Chest X-Ray 11/08/16 0600 Signed Impressions: Service Date/Time: October 02:25 - CONCLUSION: Persistent bibasilar effusions with associated airspace disease. No interval change. Milan Aguilar MD Lower Extremity Ultrasound 11/07/16 0000 Signed Impressions: Service Date/Time: Monday, November 07, 2016 09:33 - CONCLUSION: No DVT of the left lower extremity. Nonspecific subcutaneous edema. Mookie Scales MD Objective Remarks GENERAL: Patient is 26 yo critically ill on dobutamine, intubated, sedated. SKIN: Warm and dry. HEAD: Normocephalic. EYES: No scleral icterus. No injection or drainage. NECK: Supple, trachea midline. No JVD or lymphadenopathy. CARDIOVASCULAR: Regular rate and rhythm , 3/6 Systolic murmur in apex and aortic area RESPIRATORY: Breath sounds equal bilaterally. orotracheally intubated. on PRVC. GASTROINTESTINAL: Abdomen soft, non-tender, nondistended. MUSCULOSKELETAL: No cyanosis, or edema. Neuro: RASS -1.follows commands in LUE. 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 Her course has now been complicated by GTC seizures likely secondary to multiple new septic embolic strokes. Dr. Meier has weighed in and there is no surgical option for her. From a neurosurgical standpoint, not a good operative candidate for biopsy of her left frontal mass or drainage from any intracranial abscess. From a cardiology standpoint, I have spoken with Dr. Blanc who agrees we have failed both medical and surgical options for the treatment of her recurrence of her endocarditis. I do not think the medical community has anything additional to offer this unfortunate 26yF, as she has failed all the therapy we have available to her. We will re-engage palliative care. Her mother continues to want aggressive care. I explained that this would likely involve tracheostomy and PEG tube, and she expressed understanding. Her prognosis remains poor. Plan by systems: Neurologic: Acute on Chronic pain IV drug abuse, with relapse History of CVA with residual left-sided weakness Multiple new embolic CVAs Left frontal mass --propofol for goal RASS -2. 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 Blanc, --Cardiothoracic surgery consulted patient is not a candidate for valvular re do surgery due to active drug use IV Lasix 20 mg every 12, IV albumin 25 g IV every 12 --Aldactone 50 mg every 12 --Off Levophed, wean off dobutamine today. On ASA, Ramipril 2.5mg daily, Coreg 3.125mg BID Renal: Acute Kidney insufficiency Metabolic acidosis --Monitor renal function, I/O's, electrolytes replacement as needed -On Lasix 20mg Q12, Aldactone 50mg BID, KCl 30meq daily, Albumin 25gms Q12 GI: Acute protein calorie malnutrition -Elevated LFT's...trending down On heart healthy diet, --Monitor LFT's. Heme: Supratherapeutic INR History of Bilateral lower lobe subsegmental pulmonary embolism History of nonocclusive left femoral vein DVT 08/20 Anemia, Thrombocytopenia -holding anticoagulation given intracranial hemorrhage. -Monitor CBC coags ID: Gram positive Bacteremia Probable prosthetic aortic valve vegetation Septic shock Previous MRSA endocarditis --Continue vancomycin, Cefepime 2 gm IV q8. Cardiology cardiothoracic surgery consulted-not a surgical candidate --ID is following Endocrine: -- Electrolyte replacement per protocol --SSI if needed for glycemic control Prophylaxis: GI Prophylaxis Protonix 40 mg IV daily 24 hours DVT Prophylaxis -- SCDs Holding pharmacologic DVT prophylaxis in the setting of intracranial hemorrhage. Dispo: remain in the ICU. Problem Qualifiers (1) Prosthetic valve endocarditis: Qualified Code: T82.6XXA - Prosthetic valve endocarditis, initial encounter David Lynn MD Nov 11, 2016 16:13
[2016-11-11] MEDS: ACETAMINOPHEN/HYDROcodone 325 MG/5 MG TAB PO PRN (20:16)
[2016-11-11] MEDS: PANTOPRAZOLE SODIUM 40 MG VIAL IV PUSH SCH (23:35)
[2016-11-12] VITALS (17 sets, daily range): BP systolic 93–134; BP diastolic 57–81; PULSE 67–105; RESP 15–26; TEMP 98.2–99.2; O2SAT 95–100
[2016-11-12] MEDS: ALBUMIN HUMAN 25% 25 GM/100 ML BAGP IV SCH ×2 (02:20→14:37)
[2016-11-12] MEDS: PENICILLIN G POTASSIUM INJ 3,000,000 UNITS in SODIUM CHLORIDE 0.9% INJ 100 ML IV SCH ×6 (02:20→23:34)
[2016-11-12] MEDS: MIDAZOLAM 100 MG/ML INJ 100 ML IV SCH ×2 (02:21→20:08)
[2016-11-12] MEDS: RESP: ALBUTEROL 2.5 MG/IPRATROPIUM 0.5 MG NEB (SCH) NEB ×4 (03:39→22:01)
[2016-11-12] MEDS: metroNIDAZOLE 500 MG INJ 100 ML IV SCH ×3 (04:19→20:08)
[2016-11-12] MEDS ORDERED: PHARMACY ORDERED LAB XX ONE (04:45)
[2016-11-12] MEDS: levETIRAcetam INJ 500 MG in SODIUM CHLORIDE 0.9% INJ 100 ML IV SCH ×2 (04:55→16:57)
[2016-11-12 05:27] LABS: AUTOMATED NEUTROPHIL # 7.2 TH/MM3 (1.8-7.7); BASOPHIL # 0.1 TH/MM3 (0-0.2); BASOPHIL % 0.6 % (0.0-2.0); EOSINOPHIL # 0.2 TH/MM3 (0-0.4); EOSINOPHIL % 1.7 % (0.0-4.0); HEMATOCRIT 27.3 % (35.0-46.0); LYMPH % 13.7 % (9.0-44.0); LYMPHOCYTE # 1.3 TH/MM3 (1.0-4.8); MEAN CELL VOLUME 92.9 FL (80.0-100.0); MEAN CORPUSCULAR HEMOGLOBIN 30.6 PG (27.0-34.0); MEAN CORPUSCULAR HGB CONC 32.9 % (32.0-36.0); PLATELET COUNT 67 TH/MM3 (150-450); RED BLOOD COUNT 2.94 MIL/MM3 (4.00-5.30); RED CELL DISTRIBUTION WIDTH 20.8 % (11.6-17.2); WHITE BLOOD COUNT 9.2 TH/MM3 (4.0-11.0)
[2016-11-12 05:32] LABS: HEMO FLAGS AUTO DIFF
[2016-11-12 05:40] LABS: INTERNATIONAL NORMALIZED RATIO 1.4 RATIO; PROTHROMBIN TIME - PATIENT 15.7 SEC (9.8-11.6)
[2016-11-12 06:19] LABS: ALKALINE PHOSPHATASE 78 U/L (45-117); ALT (GPT) 49 U/L (10-53); ANION GAP 10 MEQ/L (5-15); AST (GOT) 38 U/L (15-37); BICARBONATE 27.3 MEQ/L (21.0-32.0); BLOOD UREA NITROGEN 10 MG/DL (7-18); CHLORIDE 102 MEQ/L (98-107); GLOMERULAR FILTRATION RATE 104 ML/MIN (>89); POTASSIUM 3.5 MEQ/L (3.5-5.1); SODIUM (NA) 139 MEQ/L (136-145)
[2016-11-12 06:22] LABS: TOTAL BILIRUBIN ADULT 6.8 MG/DL (0.2-1.0)
[2016-11-12 06:57] LABS: SCAN/DIFF AUTO DIFF CONFIRMED
[2016-11-12] MEDS: SODIUM CHLORIDE 0.9% FLUSH 5 ML FLUSH FLUSH SCH ×2 (09:00→20:08)
[2016-11-12] MEDS: POTASSIUM CHLORIDE 10 MEQ CONTROLLED RELEASE TAB PO SCH (09:00)
[2016-11-12] MEDS: CHLORHEXIDINE 0.12% (ORAL KIT) 15 ML CUP MT SCH ×2 (09:08→20:09)
[2016-11-12] MEDS: SPIRONOLACTONE 50 MG TAB PO SCH ×2 (09:09→16:57)
[2016-11-12] MEDS: CARVEDILOL 3.125 MG TAB PO SCH ×2 (09:09→20:08)
[2016-11-12] MEDS: CITALOPRAM HYDROBROMIDE 40 MG TAB PO SCH (09:09)
[2016-11-12] MEDS: FERROUS SULFATE 325 MG (65 MG ELEMENTAL IRON) TAB PO SCH ×2 (09:09→20:08)
[2016-11-12] MEDS: ASPIRIN 81 MG CHEW TAB PO SCH (09:09)
[2016-11-12] MEDS: LACTOBACILLUS ACIDOPHILUS TAB PO SCH ×2 (09:09→20:08)
[2016-11-12] MEDS: RAMIPRIL 2.5 MG CAP PO SCH (09:09)
[2016-11-12] MEDS: DOCUSATE SODIUM 100 MG CAP PO SCH ×2 (10:45→22:45)
--- NOTE | 2016-11-12 11:03 | HHI.FPPN ---
Subjective Remarks Patient seen this morning. No acute events overnight. Vitals WNL. On sedation with versed and fentanyl. Noticeably more awake and alert this AM. Follows simple commands. Per nursing, trial on CPAP today. Failed spontaneous breathing trial x2 yesterday apparently. (Freddie Aguilar MD R3) Objective Vitals Vital Signs Date Time Temp Pulse Resp B/P Pulse Ox O2 Delivery O2 Flow Rate FiO2 11/12/16 08:20 100 40 11/12/16 07:00 100 Mechanical Ventilator 40 11/12/16 06:00 77 11/12/16 04:14 96 40 11/12/16 04:00 40 11/12/16 04:00 81 11/12/16 04:00 98.8 79 18 111/69 96 11/12/16 02:00 86 11/12/16 02:00 78 11/12/16 00:42 95 40 11/12/16 00:00 40 11/12/16 00:00 89 11/12/16 00:00 99.1 81 26 108/73 95 11/11/16 22:00 84 11/11/16 21:00 98 40 11/11/16 20:00 99 Mechanical Ventilator 40 11/11/16 20:00 99.5 85 17 104/67 100 11/11/16 20:00 84 11/11/16 20:00 40 11/11/16 18:00 88 11/11/16 17:00 100 40 11/11/16 16:00 86 11/11/16 16:00 99.1 86 16 109/78 100 11/11/16 16:00 40 11/11/16 14:00 87 11/11/16 13:35 100 40 11/11/16 12:00 87 11/11/16 12:00 40 11/11/16 12:00 99.3 87 16 107/77 100 I/O 11/11/16 11/11/16 11/11/16 11/12/16 11/12/16 11/12/16 07:00 15:00 23:00 07:00 15:00 23:00 Intake Total 656 ml 795 ml 888 ml 1020 ml Output Total 900 ml 2400 ml 1300 ml 1500 ml Balance -244 ml -1605 ml -412 ml -480 ml IV Total 556 ml 795 ml 788 ml 920 ml Albumin 100 ml 100 ml 100 ml Output Urine Total 800 ml 2250 ml 1300 ml 1500 ml Gastric Drainage Total 100 ml 150 ml # Bowel Movements 0 0 0 0 (Freddie Aguilar MD R3) Result Diagram: 11/12/1651411/12/16514 Objective Remarks GENERAL: female laying in bed intubated. Noticeably more awake and alert this AM. SKIN: Warm and dry. R subclavian central line with no surrounding erythema. HEENT: AT/NC. Pupils equal and round. MMM. HEART: RRR with 3/6 LARRY heard throughout. LUNGS: Anterior lung sounds clear to auscultation. ABDOMEN: Soft, NT, ND. EXTREMITIES: No significant LE edema. NEURO: Follows commands. Pattern Hand right hand and wiggles all toes. Left-sided hemiparesis with left hand in contracture. 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 Blood cultures growing Strep viridans. Critical care managing the patient. Infectious disease managing antibiotic coverage. Cardiology and CT surgery consulted; patient not a candidate for a second valve replacement since she already has both MV and AV replaced in September and there is a question of current drug use. Patient had a new-onset seizure with respiratory failure on 11/09 and was subsequently intubated. MRI showing mass with surrounding hemorrhage of left frontal lobe. Neurology and neurosurgery consulted. 1. Severe sepsis/septic shock from Strep viridans bacteremia and suspected infective endocarditis - Patient presented with tachycardia, tachypnea, leukocytosis with white count 27.4, and lactic acid 10.0 with evidence of end-organ dysfunction including NITISH , transaminitis, and elevated troponins - 11/05 systolic ejection murmur suggestive of possible recurrent infective endocarditis though patient denies drug use since August before her AV and MV replacements - 2D echo suggestive of AV vegetation - Line and blood cultures growing Strep viridans - Repeat blood cultures on 11/09 show no growth - ID managing antibiotics * Continue PCN (started 11/09) * Vanco (11/06-11/09) and cefepime (11/06-11/09) discontinued - now off dobutamine drip - ID and critical care managing patient. Appreciate their expertise 2. Acute respiratory failure - Patient initially presented on BiPAP with VBG showing severe metabolic acidosis with pH 7.19 - Admission CXR showing bilateral consolidations and pleural effusions, L>R - Respiratory status improved initially and patient was on 2L nasal cannula up until 11/09 when she had a seizure and was not able to protect her airways therefore underwent intubation - Sats maintaining at 97-100% on mechanical ventilation - currently on fentanyl and versed. Spontaneous breathing trials today. 3. Intracranial hemorrhage - MRI showing widespread bilateral infarcts and focal intra-axial mass with surrounding hemorrhage of the left frontal lobe - ?Embolic focus with surrounding hemorrhage - MRA showing abrupt decrease in flow at M2 branches of right MCA - Vitamin K given 11/09 since Coumadin was >5. INR 1.4 today. - Neurosurgery consulted; recommended continuing with Keppra and maintaining adequate BPs 4. CHF exacerbation/fluid overload - 2D echo with EF 20-25% - Continue to diurese >5L UOP in past 24 hours - Continue spironolactone and Lasix - Home carvedilol and ramipril but hold for hypotension - Albumin BID per critical care 5. Thrombocytopenia - Improving. Platelets up to 67 today. Likely secondary to septic shock and coagulopathy - Monitor closely 6. History of PE - INR supratherapeutic on admission therefore Coumadin was held - Now patient with intracranial breed and INR down to 1.4 today - Vitamin K given on 11/09 FEN: - Fluids:Receiving volume through various drips and IV medications. Avoid additional secondary to cardiogenic shock - Electrolytes: Replete per protocol - Nutrition: NPO - GI prophylaxis: Protonix - DVT prophylaxis: Anticoagulation C/I given intracranial bleed and initial INR supratherapeutic Seen and discussed with Dr. Pires Discharge Planning Unclear discharge timetable right now. (Freddie Aguilar MD R3) Attending Attestation Patient seen and examined. Case reviewed and discussed with the resident team. Agree with plan of care as discussed with me and documented in the resident note. (Gladys Pires MD) Problem List: (1) Septic shock Status: Acute (2) Gram-positive bacteremia Status: Acute (3) Chronic systolic (congestive) heart failure Status: Chronic (4) Acute respiratory failure Status: Resolved (5) Seizure Status: Acute (6) Thrombocytopenia Status: Acute (7) CHF exacerbation Status: Acute (8) Hepatitis C Status: Chronic (Freddie Aguilar MD R3) Problem Qualifiers (1) Acute respiratory failure: Qualified Code: J96.01 - Acute respiratory failure with hypoxia (2) Hepatitis C: Qualified Code: B18.2 - Chronic hepatitis C without hepatic coma Freddie Aguilar MD R3 Nov 12, 2016 11:03 Gladys Pires MD Nov 14, 2016 15:05
[2016-11-12] MEDS: POTASSIUM CHLOR 40 MEQ PREMIX 100 ML IV PRN (12:11)
[2016-11-12] MEDS: FUROSEMIDE 40 MG/4 ML VIAL IV PUSH SCH (12:12)
--- NOTE | 2016-11-12 12:17 | HHI.IDPN ---
Note Infectious Disease Note ID coverage. Patient had a seizure and was placed on the vent. Remains on the ventilator. febrile. WBC remain normal. Blood culture from 11/09 - no growth. Echo shows mobile structure on prosthetic valve. BC has strep viridans. 4 bottles. Patient denied IVDU - states last used was before her surgery CT /MRI of head noted. Antibiotics Penicillin Lines Central line Past Medical History Hospitalization from October to December 2015 for infective endocarditis and subsequent complication Hospitalization June 22 to July 23 for CHF and cervical discitis She's had CVA with subarachnoid hemorrhage, embolic lesions to the brain lungs and spleen as a result of her endocarditis Known IV drug use, patient states last time she used was prior to her hospitalization in August 2016 Bilateral sacroiliitis CVA with residual left-sided hemiplegia Past Surgical History Surgery on her discitis last July 09, 2016 AVR, MVR with tissue valve September 07, 2016 Allergies: Coded Allergies: *MDRO Multi-Drug Resistant Organism (Verified Adverse Reaction, Unknown, ) MRSA PCR screen POSITIVE- 10/18/2015 & 08/12/16 MRSA (urine, blood, 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 in sputum 2016 Objective Vital Signs Date Time Temp Pulse Resp B/P Pulse Ox O2 Delivery O2 Flow Rate FiO2 11/12/16 12:00 40 11/12/16 12:00 81 11/12/16 10:00 74 11/12/16 08:20 100 40 11/12/16 08:00 99.2 81 19 102/76 97 11/12/16 08:00 81 11/12/16 08:00 40 11/12/16 07:00 100 Mechanical Ventilator 40 11/12/16 06:00 77 11/12/16 04:14 96 40 11/12/16 04:00 40 11/12/16 04:00 81 11/12/16 04:00 98.8 79 18 111/69 96 11/12/16 02:00 86 11/12/16 02:00 78 11/12/16 00:42 95 40 11/12/16 00:00 40 11/12/16 00:00 89 11/12/16 00:00 99.1 81 26 108/73 95 11/11/16 22:00 84 11/11/16 21:00 98 40 3/12/17 20:00 99 Mechanical Ventilator 40 11/11/16 20:00 99.5 85 17 104/67 100 11/11/16 20:00 84 11/11/16 20:00 40 11/11/16 18:00 88 11/11/16 17:00 100 40 11/11/16 16:00 86 11/11/16 16:00 99.1 86 16 109/78 100 11/11/16 16:00 40 11/11/16 14:00 87 11/11/16 13:35 100 40 11/11/16 11/11/16 11/12/16 15:00 23:00 07:00 Intake Total 795 ml 888 ml 1020 ml Output Total 2400 ml 1300 ml 1500 ml Balance -1605 ml -412 ml -480 ml IV Total 795 ml 788 ml 920 ml Albumin 100 ml 100 ml Output Urine Total 2250 ml 1300 ml 1500 ml Gastric Drainage Total 150 ml # Bowel Movements 0 0 0 Laboratory Tests Test 11/12/16 05:15 White Blood Count 9.2 TH/MM3 Red Blood Count 2.94 MIL/MM3 Hemoglobin 9.0 GM/DL Hematocrit 27.3 % Mean Corpuscular Volume 92.9 FL Mean Corpuscular Hemoglobin 30.6 PG Mean Corpuscular Hemoglobin 32.9 % Concent Red Cell Distribution Width 20.8 % Platelet Count 67 TH/MM3 Mean Platelet Volume 8.2 FL Neutrophils (%) (Auto) 78.0 % Lymphocytes (%) (Auto) 13.7 % Monocytes (%) (Auto) 6.0 % Eosinophils (%) (Auto) 1.7 % Basophils (%) (Auto) 0.6 % Neutrophils # (Auto) 7.2 TH/MM3 Lymphocytes # (Auto) 1.3 TH/MM3 Monocytes # (Auto) 0.6 TH/MM3 Eosinophils # (Auto) 0.2 TH/MM3 Basophils # (Auto) 0.1 TH/MM3 CBC Comment AUTO DIFF Differential Comment AUTO DIFF CONFIRMED Laboratory Tests Test 11/12/16 05:15 Sodium Level 139 MEQ/L Potassium Level 3.5 MEQ/L Chloride Level 102 MEQ/L Carbon Dioxide Level 27.3 MEQ/L Anion Gap 10 MEQ/L Blood Urea Nitrogen 10 MG/DL Creatinine 0.68 MG/DL Estimat Glomerular Filtration 104 ML/MIN Rate Random Glucose 81 MG/DL Calcium Level 8.8 MG/DL Total Bilirubin 6.8 MG/DL Aspartate Amino Transf 38 U/L (AST/SGOT) Alanine Aminotransferase 49 U/L (ALT/SGPT) Alkaline Phosphatase 78 U/L Total Protein 6.7 GM/DL Albumin 4.0 GM/DL Imaging Head CT 11/09/16 0000 Signed Impressions: Service Date/Time: Wednesday, November 09, 2016 20:07 - CONCLUSION: 1. Suspected subacute infarcts in both posterior cerebral artery distributions, right worse than left. 2. Intraparenchymal bleed versus hemorrhagic mass left frontal lobe. MRI of the brain with and without contrast is recommended. Mookie Scales MD Chest X-Ray 11/09/16 Signed Impressions: Service Date/Time: Wednesday, November 09, 2016 18:46 - CONCLUSION: Right mainstem bronchus intubation. Worsening bilateral airspace disease. Mookie Scales MD Brain MRI 11/09/16 Signed Impressions: Service Date/Time: Wednesday, November 09, 2016 20:28 - CONCLUSION: 1. Widespread bilateral infarcts as above, several weeks in age or older. 2. Focal intra- axial mass with surrounding hemorrhage of the left frontal lobe. The lesion itself appears to be fairly small, probably about 15 mm in size. The hemorrhage is about 3.4 cm. Mookie Scales MD Chest X-Ray 11/08/16 0600 Signed Impressions: Service Date/Time: October 02:25 - CONCLUSION: Persistent bibasilar effusions with associated airspace disease. No interval change. Milan Aguilar MD Lower Extremity Ultrasound 11/07/16 0000 Signed Impressions: Service Date/Time: Monday, November 07, 2016 09:33 - CONCLUSION: No DVT of the left lower extremity. Nonspecific subcutaneous edema. Mookie Scales MD Physical Exam GENERAL: Intubated. SKIN: Cool and dry. No generalized rash, no ecchymosis, no peripheral embolic lesions. HEAD: Atraumatic. Normocephalic. No temporal or scalp tenderness. HEENT: [place] conjunctivae, no petechia or hemorrhage. No scleral icterus. Moist mucosa. NECK: Trachea midline. No JVD or lymphadenopathy. Supple, nontender, no meningeal signs. CARDIOVASCULAR: Regular rate and rhythm. LARRY. RESPIRATORY: Coarse breath sounds. GASTROINTESTINAL: Abdomen soft, non-tender. No masses palpable. EXTREMITIES: No clubbing, cyanosis. No edema. NEUROLOGICAL: Opens eyes. L hemiparesis, has some movement in her LLE but not in her LUE PSYCH: Unable to fully assess. LINE: Central line with no evidence of infection : Carter cath in place, clear urine. Assessment & Plan Remarks IMPRESSION Sepsis/Recurrent endocarditis. Prosthetic aortic valve endocarditis. Strep viridans. Respiratory failure, etiology? - CHF, has known low EF S/P AVR and MVR for severe AI and MR due to IE Episode of IE last year with complications History of IVDU Seizure. RECOMMENDATION Continue Penicillin IV. Monitor temps and Monitor progress Saeid Suero MD Nov 12, 2016 12:17
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
--- NOTE | 2016-11-12 16:50 | HHI.CCPN ---
Subjective Remarks/Hospital Course 26 y/o s/p MVR, AVR September 03 for endocarditis. She continued to use iv drugs until mid-October. Presents now with gross fluid overload and hypoxemic respiratory failure, with severe sepsis 11/07/16: Patient remains in septic shock and respiratory failure, remains on dobutamine, Levophed added. Requiring BiPAP. White count slightly improved 26, 000 from [id number]. 2-D echo showed possible large vegetation on the prosthetic aortic valve 11/08/16: Currently remains on 1 mcg/m of Levophed, 2.5 mg per KG per minute of dobutamine. Breathing improved currently on 3 L nasal cannula. Urine output 8.6 L in 24 hours with diuresis. Chest x-ray shows persistent bilateral effusion. 2d Echo showing probable AV vegetation. 11/09 Patient is off Levophed. Remains on dobutamine. Afebrile. Awake and alert on 2L oxygen. 11/10: yesterday afternoon had witnessed GTC seizure with associated hypoxic respiratory failure requiring emergent re-intubation. MRI at that time demonstrated multiple new and subacute infarcts as well as a left frontal mass vs. abscess. cultures persistently positive with strep viridans. this morning, weakly following commands in LUE. 11/11: more awake this morning. however, failed SBT twice this morning for apnea. 11/12: continues to fail SBT for somnolence and tachypnea. palliative care to see today. no clinical changes. Objective Vital Signs Date Time Temp Pulse Resp B/P Pulse Ox O2 Delivery O2 Flow Rate FiO2 11/12/16 14:00 90 11/12/16 12:22 40 11/12/16 12:12 95 11/12/16 12:00 98.5 18 105/69 11/12/16 07:00 Mechanical Ventilator 11/09/16 07:54 2.00 Intake and Output 11/11/16 11/11/16 11/12/16 08:00 16:00 00:00 Intake Total 656 ml 795 ml 888 ml Output Total 900 ml 2400 ml 1300 ml Balance -244 ml -1605 ml -412 ml Result Diagram: 11/12/16 0515 11/12/16 0515 Imaging Last Impressions Chest X-Ray 11/08/16 0600 Signed Impressions: Service Date/Time: October 02:25 - CONCLUSION: Persistent bibasilar effusions with associated airspace disease. No interval change. Milan Aguilar MD Lower Extremity Ultrasound 11/07/16 0000 Signed Impressions: Service Date/Time: Monday, November 07, 2016 09:33 - CONCLUSION: No DVT of the left lower extremity. Nonspecific subcutaneous edema. Mookie Scales MD Objective Remarks GENERAL: Patient is 26 yo critically ill, intubated, sedated. SKIN: Warm and dry. HEAD: Normocephalic. EYES: No scleral icterus. No injection or drainage. NECK: Supple, trachea midline. No JVD or lymphadenopathy. CARDIOVASCULAR: Regular rate and rhythm , 3/6 Systolic murmur in apex and aortic area RESPIRATORY: Breath sounds equal bilaterally. orotracheally intubated. on PRVC. GASTROINTESTINAL: Abdomen soft, non-tender, nondistended. MUSCULOSKELETAL: No cyanosis, or edema. Neuro: RASS -1.follows commands in LUE. 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 Her course has now been complicated by GTC seizures likely secondary to multiple new septic embolic strokes. Dr. Meier has weighed in and there is no surgical option for her. From a neurosurgical standpoint, not a good operative candidate for biopsy of her left frontal mass or drainage from any intracranial abscess. From a cardiology standpoint, I have spoken with Dr. Blanc who agrees we have failed both medical and surgical options for the treatment of her recurrence of her endocarditis. I do not think the medical community has anything additional to offer this unfortunate 26yF, as she has failed all the therapy we have available to her. We will re-engage palliative care. Her mother continues to want aggressive care. I explained that this would likely involve tracheostomy and PEG tube, and she expressed understanding. Her prognosis remains poor. Plan by systems: Neurologic: Acute on Chronic pain IV drug abuse, with relapse History of CVA with residual left-sided weakness Multiple new embolic CVAs Left frontal mass --propofol for goal RASS -2. --Monitor neuro status and avoid sedatives --Nsgy consulted Respiratory: Acute hypoxic respiratory failure Bilateral pleural effusions History of Bilateral lower lobe subsegmental pulmonary embolism --wean fio2 for goal spo2 > 92% --Bronchodilators --daily SBTs. 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 Blanc, --Cardiothoracic surgery consulted patient is not a candidate for valvular re do surgery due to active drug use increase IV lasix to 20mg iv q6h, IV albumin 25 g IV every 12 --Aldactone 50 mg every 12 --Off Levophed, off dobutamine. On ASA, Ramipril 2.5mg daily, Coreg 3.125mg BID Renal: Acute Kidney insufficiency Metabolic acidosis --Monitor renal function, I/O's, electrolytes replacement as needed -On Lasix 20mg Q6, Aldactone 50mg BID, KCl 30meq daily, Albumin 25gms Q12 GI: Acute protein calorie malnutrition -Elevated LFT's...trending down on TFs --Monitor LFT's. Heme: Supratherapeutic INR History of Bilateral lower lobe subsegmental pulmonary embolism History of nonocclusive left femoral vein DVT 08/20 Anemia, Thrombocytopenia -holding anticoagulation given intracranial hemorrhage. -Monitor CBC coags ID: Gram positive Bacteremia Probable prosthetic aortic valve vegetation Septic shock Previous MRSA endocarditis --Continue vancomycin, Cefepime 2 gm IV q8. Cardiology cardiothoracic surgery consulted-not a surgical candidate --ID is following Endocrine: -- Electrolyte replacement per protocol --SSI if needed for glycemic control Prophylaxis: GI Prophylaxis Protonix 40 mg IV daily 24 hours DVT Prophylaxis -- SCDs Holding pharmacologic DVT prophylaxis in the setting of intracranial hemorrhage. Dispo: remain in the ICU. Problem Qualifiers (1) Prosthetic valve endocarditis: Qualified Code: T82.6XXA - Prosthetic valve endocarditis, initial encounter David Lynn MD Nov 12, 2016 16:50
[2016-11-12] MEDS: FUROSEMIDE 20 MG/2 ML VIAL IV PUSH SCH (20:08)
[2016-11-12] MEDS: PANTOPRAZOLE SODIUM 40 MG VIAL IV PUSH SCH (23:33)
[2016-11-13] VITALS (15 sets, daily range): BP systolic 93–111; BP diastolic 65–76; PULSE 66–127; RESP 16–21; TEMP 97.6–99.6; O2SAT 91–100
[2016-11-13] MEDS ORDERED: DEXTROSE 50% IN WATER 50 ML VIAL(D50) ONE (01:13)
[2016-11-13] MEDS: PENICILLIN G POTASSIUM INJ 3,000,000 UNITS in SODIUM CHLORIDE 0.9% INJ 100 ML IV SCH ×6 (01:16→20:31)
[2016-11-13] MEDS: ALBUMIN HUMAN 25% 25 GM/100 ML BAGP IV SCH ×2 (01:16→14:44)
[2016-11-13] MEDS: FUROSEMIDE 20 MG/2 ML VIAL IV PUSH SCH ×4 (01:16→20:31)
[2016-11-13] MEDS ORDERED: DEXTROSE 50% IN WATER 50 ML SYRINGE IV PRN (01:30)
[2016-11-13] MEDS ORDERED: DEXTROSE 50% IN WATER 50 ML SYRINGE IV ONE (01:30)
[2016-11-13] MEDS: metroNIDAZOLE 500 MG INJ 100 ML IV SCH ×3 (03:26→20:31)
[2016-11-13] MEDS: RESP: ALBUTEROL 2.5 MG/IPRATROPIUM 0.5 MG NEB (SCH) NEB ×4 (03:32→21:17)
--- NOTE | 2016-11-13 04:26 | RADRPT ---
EXAM DATE/TIME: 11/13/2016 03:58 [facility] COMPARISON: MRI BRAIN W & W/O CONTRAST, November 09, 2016, 20:28. CT BRAIN W/O CONTRAST, November 09, 2016, 20:07. INDICATIONS : Follow-up left frontal emboli/bleed. RADIATION DOSE: 56.35 CTDIvol (mGy) MEDICAL HISTORY : Stroke. Cardiovascular disease Cerebrovascular disease. SURGICAL HISTORY : None. ENCOUNTER: Subsequent ACUITY: 4 - 6 days PAIN SCALE: Non-responsive LOCATION: cranial TECHNIQUE: Multiple contiguous axial images were obtained of the head. Using automated exposure control and adj ustment of the mA and/or kV according to patient size, radiation dose was kept as low as reasonably a chievable to obtain optimal diagnostic quality images. FINDINGS: CEREBRUM: Left frontal lobe hematoma now measures 4.3 x 3.4 cm compared to 3.7 x 2.8 cm on the prior study. The re is associated mass effect and new 5 mm left to right midline shift. Right parietal encephalomalaci a are again seen. Small subarachnoid hemorrhage or cortical parenchymal hemorrhage is seen in the par amidline right parietal lobe on image #22 measuring 6 mm. No mass effect in this region. POSTERIOR FOSSA: The cerebellum and brainstem are intact. The 4th ventricle is midline. The cerebellopontine angle i s unremarkable. EXTRACRANIAL: The visualized portion of the orbits is intact. SKULL: The calvaria is intact. No evidence of skull fracture. CONCLUSION: 1. Left frontal parenchymal hematoma increased in size. Mass effect with 5 mm left to right midline s hift in the frontal region. 2. 6 mm hemorrhage in the paramidline right parietal lobe is new. No mass effect. Noe Mike MD on November 13, 2016 at 4:15 Board Certified Radiologist. This report was verified electronically.
[2016-11-13] MEDS: levETIRAcetam INJ 500 MG in SODIUM CHLORIDE 0.9% INJ 100 ML IV SCH ×2 (06:11→17:21)
[2016-11-13] MEDS: CHLORHEXIDINE 0.12% (ORAL KIT) 15 ML CUP MT SCH ×2 (08:00→20:00)
--- NOTE | 2016-11-13 08:10 | HHI.NSPN ---
History Chief Complaint: new left frontal infarct Interval History She is still intubated and on dobutamine but weaning from the versed. She opens her eyes and is purposeful with the right hand, GCS [id number] = 10T. 11/13/16 She had a repeat head CT which showed a worsening of the hyperintensity on the left frontal lobe. Clinically she remains under heavy fentanyl and versed sedation but arouses to voice and follows commands with her right side. GCS is [id number] = 10T Review of Systems General: Negative for: fever, chills, insomnia Gastrointestinal: Negative for: nausea, vomitting, diarrhea, constipation Exam Results Vital Signs Date Time Temp Pulse Resp B/P Pulse Ox O2 Delivery O2 Flow Rate FiO2 11/13/16 06:00 67 11/13/16 05:01 100 40 11/13/16 04:00 99.6 16 111/74 11/12/16 07:00 Mechanical Ventilator 11/09/16 07:54 2.00 Intake and Output 11/12/16 11/12/16 11/13/16 08:00 16:00 00:00 Intake Total 1020 ml 418 ml 764 ml Output Total 1500 ml 800 ml 2200 ml Balance -480 ml -382 ml -1436 ml Physical Examination Arousable, interactive, pupils equal, reactive, eyes are dysconjugate Spasticity, old on the left side including left Gordon and Babinski signs, Left sided weakness or neglect, old Purposeful with the right upper and lower extremity, withdraws the left lower extremity Abd soft, obese, RRR, skin warm and dry, no rashes Medical Decision Making Impression and Plan New left frontal septic embolus with associated hemorrhage, and minimal mass effect, will follow. She is stable hemodynamically and neurologically at this time. 11/13/16 Increased hyperintensity in the left frontal lobe including increased edema in the left operculum from which arises the motor speech function. The mass effect remains small for the size of the lesion. Resection is not needed as the underlying brain fiber tracts are likely to still be viable but we should maintain perfusion pressures > 65 and correct coagulopathy if it is still present. Repeat electrolytes and coagulation profile was requested. A family meeting is planned this am to discuss the goals of care. Total Minutes: 10 Jaswant Craig Nov 13, 2016 08:10
[2016-11-13 08:54] LABS: AUTOMATED NEUTROPHIL # 6.9 TH/MM3 (1.8-7.7); BASOPHIL % 0.5 % (0.0-2.0); EOSINOPHIL # 0.1 TH/MM3 (0-0.4); EOSINOPHIL % 1.6 % (0.0-4.0); HEMATOCRIT 29.8 % (35.0-46.0); LYMPH % 11.8 % (9.0-44.0); MEAN CORPUSCULAR HEMOGLOBIN 30.1 PG (27.0-34.0); MEAN CORPUSCULAR HGB CONC 32.1 % (32.0-36.0); MONO % 7.4 % (0.0-8.0); NEUT % 78.7 % (16.0-70.0); PLATELET COUNT 89 TH/MM3 (150-450); RED BLOOD COUNT 3.18 MIL/MM3 (4.00-5.30); RED CELL DISTRIBUTION WIDTH 20.8 % (11.6-17.2); WHITE BLOOD COUNT 8.8 TH/MM3 (4.0-11.0)
[2016-11-13 08:58] LABS: INTERNATIONAL NORMALIZED RATIO 1.5 RATIO; PROTHROMBIN TIME - PATIENT 16.5 SEC (9.8-11.6)
[2016-11-13] MEDS: SODIUM CHLORIDE 0.9% FLUSH 5 ML FLUSH FLUSH SCH ×2 (09:00→20:31)
[2016-11-13] MEDS: FERROUS SULFATE 325 MG (65 MG ELEMENTAL IRON) TAB PO SCH ×2 (09:00→20:31)
[2016-11-13] MEDS: POTASSIUM CHLORIDE 10 MEQ CONTROLLED RELEASE TAB PO SCH (09:00)
[2016-11-13 09:02] LABS: HEMO FLAGS AUTO DIFF
[2016-11-13] MEDS: LACTOBACILLUS ACIDOPHILUS TAB PO SCH ×2 (09:05→20:31)
[2016-11-13] MEDS: CITALOPRAM HYDROBROMIDE 40 MG TAB PO SCH (09:05)
[2016-11-13] MEDS: CARVEDILOL 3.125 MG TAB PO SCH ×2 (09:05→20:31)
[2016-11-13] MEDS: RAMIPRIL 2.5 MG CAP PO SCH (09:05)
[2016-11-13] MEDS: ASPIRIN 81 MG CHEW TAB PO SCH (09:05)
[2016-11-13] MEDS: SPIRONOLACTONE 50 MG TAB PO SCH ×2 (09:05→18:00)
[2016-11-13 09:24] LABS: ALKALINE PHOSPHATASE 80 U/L (45-117); ALT (GPT) 42 U/L (10-53); ANION GAP 10 MEQ/L (5-15); AST (GOT) 37 U/L (15-37); BICARBONATE 25.9 MEQ/L (21.0-32.0); BLOOD UREA NITROGEN 11 MG/DL (7-18); CHLORIDE 104 MEQ/L (98-107); GLOMERULAR FILTRATION RATE 97 ML/MIN (>89); POTASSIUM 3.9 MEQ/L (3.5-5.1); SODIUM (NA) 140 MEQ/L (136-145); TOTAL BILIRUBIN ADULT 6.6 MG/DL (0.2-1.0)
[2016-11-13 09:58] LABS: OVALOCYTES 1+ (NORMAL); SCAN/DIFF AUTO DIFF CONFIRMED
[2016-11-13 09:59] LABS: PLATELET ESTIMATE SMEAR LOW (NORMAL); PLATELET MORPHOLOGY NORMAL (NORMAL)
--- NOTE | 2016-11-13 10:25 | HHI.FPPN ---
Subjective Remarks Patient seen this morning. No acute events overnight. Vitals essentially WNL. Failed SBT multiple times yesterday. CC is weaning off of fentanyl and versed. Palliative care did speak with mother yesterday, who wants to continue with aggressive care. Family meeting apparently set for this afternoon. Patient does follow simple commands with right upper and lower extremities this morning. ( Freddie Aguilar MD R3) Objective Vitals Vital Signs Date Time Temp Pulse Resp B/P Pulse Ox O2 Delivery O2 Flow Rate FiO2 11/13/16 08:45 100 40 11/13/16 06:00 67 11/13/16 05:01 100 40 11/13/16 04:00 82 11/13/16 04:00 99.6 82 16 111/74 100 11/13/16 04:00 40 11/13/16 02:00 108 11/13/16 01:15 100 40 11/13/16 00:00 98.1 84 16 98/65 100 11/13/16 00:00 40 11/13/16 00:00 85 11/12/16 22:00 90 11/12/16 20:00 98.6 86 16 107/80 100 11/12/16 20:00 40 11/12/16 20:00 90 11/12/16 18:00 90 11/12/16 17:05 100 40 11/12/16 16:00 98.2 67 16 93/57 100 11/12/16 16:00 40 11/12/16 16:00 67 11/12/16 14:00 90 11/12/16 12:22 40 11/12/16 12:12 95 40 11/12/16 12:00 40 11/12/16 12:00 81 11/12/16 12:00 98.5 81 18 105/69 96 I/O 11/12/16 11/12/16 11/12/16 11/13/16 11/13/16 11/13/16 07:00 15:00 23:00 07:00 15:00 23:00 Intake Total 1020 ml 418 ml 764 ml 626 ml Output Total 1500 ml 800 ml 2200 ml 1100 ml Balance -480 ml -382 ml -1436 ml -474 ml IV Total 920 ml 418 ml 764 ml 526 ml Albumin 100 ml 100 ml Output Urine Total 1500 ml 800 ml 2200 ml 1100 ml # Bowel Movements 0 0 (Freddie Aguilar MD R3) Result Diagram: 11/13/16 0810 11/13/16 0810 Objective Remarks GENERAL: female laying in bed intubated. Noticeably more awake and alert this AM. SKIN: Warm and dry. R subclavian central line with no surrounding erythema. HEENT: AT/NC. Pupils equal and round. MMM. HEART: RRR with 3/6 LARRY heard throughout. LUNGS: Anterior lung sounds clear to auscultation. ABDOMEN: Soft, NT, ND. EXTREMITIES: No significant LE edema. NEURO: Follows commands. 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 Left-sided hemiparesis with left hand in contracture. 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 Blood cultures growing Strep viridans. Critical care managing the patient. Infectious disease managing antibiotic coverage. Cardiology and CT surgery consulted; patient not a candidate for a second valve replacement since she already has both MV and AV replaced in September and there is a question of current drug use. Patient had a new-onset seizure with respiratory failure on 11/09 and was subsequently intubated. MRI showing mass with surrounding hemorrhage of left frontal lobe. Neurology and neurosurgery consulted. Palliative care now on boar , as well. Family currently wishes to continue aggressive care. 1. Severe sepsis/septic shock from Strep viridans bacteremia and suspected infective endocarditis - Patient presented with tachycardia, tachypnea, leukocytosis with white count 27.4, and lactic acid 10.0 with evidence of end-organ dysfunction including NITISH , transaminitis, and elevated troponins - 11/05 systolic ejection murmur suggestive of possible recurrent infective endocarditis though patient denies drug use since August before her AV and MV replacements - 2D echo suggestive of AV vegetation - Line and blood cultures growing Strep viridans - Repeat blood cultures on 11/09 show no growth - ID managing antibiotics * Continue PCN (started 11/09) * Vanco (11/06-11/09) and cefepime (11/06-11/09) discontinued - ID and critical care managing patient. Appreciate their expertise 2. Acute respiratory failure - Patient initially presented on BiPAP with VBG showing severe metabolic acidosis with pH 7.19 - Admission CXR showing bilateral consolidations and pleural effusions, L>R - Respiratory status improved initially and patient was on 2L nasal cannula up until 11/09 when she had a seizure and was not able to protect her airways therefore underwent intubation - Sats maintaining at 97-100% on mechanical ventilation - currently on fentanyl and versed. Spontaneous breathing trials today. 3. Intracranial hemorrhage - MRI showing widespread bilateral infarcts and focal intra-axial mass with surrounding hemorrhage of the left frontal lobe - ?Embolic focus with surrounding hemorrhage - MRA showing abrupt decrease in flow at M2 branches of right MCA - Vitamin K given 11/09 since Coumadin was >5. INR 1.5 today. - Neurosurgery consulted; recommended continuing with Keppra and maintaining adequate BPs 4. CHF exacerbation/fluid overload - 2D echo with EF 20-25% - Continue to diurese >4L UOP in past 24 hours - Continue spironolactone and Lasix - Home carvedilol and ramipril but hold for hypotension - Albumin BID per critical care 5. Thrombocytopenia - Improving. Platelets up to 89 today. Likely secondary to septic shock and coagulopathy - Monitor closely 6. History of PE - INR supratherapeutic on admission therefore Coumadin was held - Now patient with intracranial breed and INR up to 1.5 today - Vitamin K given on 11/09 FEN: - Fluids:Receiving volume through various drips and IV medications. Avoid additional secondary to cardiogenic shock - Electrolytes: Replete per protocol - Nutrition: NPO - GI prophylaxis: Protonix - DVT prophylaxis: Anticoagulation C/I given intracranial bleed and initial INR supratherapeutic Will discuss with Dr. Pires Discharge Planning Unclear discharge timetable right now. (Freddie Aguilar MD R3) Attending Attestation Patient seen and examined. Case reviewed and discussed with the resident team. Agree with plan of care as discussed with me and documented in the resident note. (Gladys Pires MD) Problem List: (1) Septic shock Status: Acute (2) Gram-positive bacteremia Status: Acute (3) Chronic systolic (congestive) heart failure Status: Chronic (4) Acute respiratory failure Status: Resolved (5) Seizure Status: Acute (6) Thrombocytopenia Status: Acute (7) CHF exacerbation Status: Acute (8) Hepatitis C Status: Chronic (Freddie Aguilar MD R3) Problem Qualifiers (1) Acute respiratory failure: Qualified Code: J96.01 - Acute respiratory failure with hypoxia (2) Hepatitis C: Qualified Code: B18.2 - Chronic hepatitis C without hepatic coma Freddie Aguilar MD R3 Nov 13, 2016 10:25 Gladys Pires MD Nov 14, 2016 15:05
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
[2016-11-13] MEDS: DOCUSATE SODIUM 100 MG CAP PO SCH ×2 (10:45→22:45)
--- NOTE | 2016-11-13 12:33 | HHI.IDPN ---
Note Infectious Disease Note ID coverage. Remains on the ventilator. Patient had a seizure and was placed on the vent. Afebrile. Looks comfortable. Opens eyes. WBC remain normal. Blood culture from 11/09 - no growth. Echo showed mobile structure on prosthetic valve. BC has strep viridans. 4 bottles. Patient denied IVDU - states last used was before her surgery CT /MRI of head noted. Antibiotics Penicillin Lines Central line Past Medical History Hospitalization from October to December 2015 for infective endocarditis and subsequent complication Hospitalization June 22 to July 23 for CHF and cervical discitis She's had CVA with subarachnoid hemorrhage, embolic lesions to the brain lungs and spleen as a result of her endocarditis Known IV drug use, patient states last time she used was prior to her hospitalization in August 2016 Bilateral sacroiliitis CVA with residual left-sided hemiplegia Past Surgical History Surgery on her discitis last July 09, 2016 AVR, MVR with tissue valve September 07, 2016 Allergies: Coded Allergies: *MDRO Multi-Drug Resistant Organism (Verified Adverse Reaction, Unknown, ) MRSA PCR screen POSITIVE- 10/18/2015 & 08/12/16 MRSA (urine, blood, 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 in sputum 2016 Objective Vital Signs Date Time Temp Pulse Resp B/P Pulse Ox O2 Delivery O2 Flow Rate FiO2 11/13/16 12:00 98.2 66 16 98/69 100 11/13/16 11:26 100 40 11/13/16 08:45 100 40 11/13/16 08:00 98.3 77 16 105/76 100 11/13/16 08:00 77 11/13/16 08:00 40 11/13/16 06:00 67 11/13/16 05:01 100 40 11/13/16 04:00 82 11/13/16 04:00 99.6 82 16 111/74 100 11/13/16 04:00 40 11/13/16 02:00 108 11/13/16 01:15 100 40 11/13/16 00:00 98.1 84 16 98/65 100 11/13/16 00:00 40 11/13/16 00:00 85 11/12/16 22:00 90 11/12/16 20:00 98.6 86 16 107/80 100 11/12/16 20:00 40 11/12/16 20:00 90 11/12/16 18:00 90 11/12/16 17:05 100 40 11/12/16 16:00 98.2 67 16 93/57 100 11/12/16 16:00 40 11/12/16 16:00 67 11/12/16 14:00 90 11/12/16 11/12/16 11/13/16 15:00 23:00 07:00 Intake Total 418 ml 764 ml 626 ml Output Total 800 ml 2200 ml 1100 ml Balance -382 ml -1436 ml -474 ml IV Total 418 ml 764 ml 526 ml Albumin 100 ml Output Urine Total 800 ml 2200 ml 1100 ml # Bowel Movements 0 Laboratory Tests Test 11/12/16 11/13/16 05:15 08:10 White Blood Count 9.2 TH/MM3 8.8 TH/MM3 Red Blood Count 2.94 MIL/MM3 3.18 MIL/MM3 Hemoglobin 9.0 GM/DL 9.6 GM/DL Hematocrit 27.3 % 29.8 % Mean Corpuscular Volume 92.9 FL 94.0 FL Mean Corpuscular Hemoglobin 30.6 PG 30.1 PG Mean Corpuscular Hemoglobin 32.9 % 32.1 % Concent Red Cell Distribution Width 20.8 % 20.8 % Platelet Count 67 TH/MM3 89 TH/MM3 Mean Platelet Volume 8.2 FL 8.7 FL Neutrophils (%) (Auto) 78.0 % 78.7 % Lymphocytes (%) (Auto) 13.7 % 11.8 % Monocytes (%) (Auto) 6.0 % 7.4 % Eosinophils (%) (Auto) 1.7 % 1.6 % Basophils (%) (Auto) 0.6 % 0.5 % Neutrophils # (Auto) 7.2 TH/MM3 6.9 TH/MM3 Lymphocytes # (Auto) 1.3 TH/MM3 1.0 TH/MM3 Monocytes # (Auto) 0.6 TH/MM3 0.7 TH/MM3 Eosinophils # (Auto) 0.2 TH/MM3 0.1 TH/MM3 Basophils # (Auto) 0.1 TH/MM3 0.0 TH/MM3 CBC Comment AUTO DIFF AUTO DIFF Differential Comment AUTO DIFF AUTO DIFF CONFIRMED CONFIRMED Platelet Estimate LOW Platelet Morphology Comment NORMAL Ovalocytes 1+ Laboratory Tests Test 11/12/16 11/13/16 05:15 08:10 Sodium Level 139 MEQ/L 140 MEQ/L Potassium Level 3.5 MEQ/L 3.9 MEQ/L Chloride Level 102 MEQ/L 104 MEQ/L Carbon Dioxide Level 27.3 MEQ/L 25.9 MEQ/L Anion Gap 10 MEQ/L 10 MEQ/L Blood Urea Nitrogen 10 MG/DL 11 MG/DL Creatinine 0.68 MG/DL 0.72 MG/DL Estimat Glomerular Filtration 104 ML/MIN 97 ML/MIN Rate Random Glucose 81 MG/DL 94 MG/DL Calcium Level 8.8 MG/DL 8.9 MG/DL Total Bilirubin 6.8 MG/DL 6.6 MG/DL Aspartate Amino Transf 38 U/L 37 U/L (AST/SGOT) Alanine Aminotransferase 49 U/L 42 U/L (ALT/SGPT) Alkaline Phosphatase 78 U/L 80 U/L Total Protein 6.7 GM/DL 7.0 GM/DL Albumin 4.0 GM/DL 4.3 GM/DL Imaging Head Magnetic Resonance Angiography 11/10/16 Signed Impressions: Service Date/Time: Thursday, November 10, 2016 09:18 - CONCLUSION: Abrupt decrease in flow at the M2 branches of the right middle cerebral artery. Mookie Razo MD Chest X-Ray 11/10/16 Signed Impressions: Service Date/Time: Thursday, November 10, 2016 03:53 - CONCLUSION: ET tube in good position. Persistent left lower lung consolidation and pleural effusion with infiltrates in the right lower lung. Mo Benson MD Head CT 11/09/16 Signed Impressions: Service Date/Time: Wednesday, November 09, 2016 20:07 - CONCLUSION: 1. Suspected subacute infarcts in both posterior cerebral artery distributions, right worse than left. 2. Intraparenchymal bleed versus hemorrhagic mass left frontal lobe. MRI of the brain with and without contrast is recommended. Mookie Scales MD Brain MRI 11/09/16 Signed Impressions: Service Date/Time: Wednesday, November 09, 2016 20:28 - CONCLUSION: 1. Widespread bilateral infarcts as above, several weeks in age or older. 2. Focal intra- axial mass with surrounding hemorrhage of the left frontal lobe. The lesion itself appears to be fairly small, probably about 15 mm in size. The hemorrhage is about 3.4 cm. Mookie Scales MD Lower Extremity Ultrasound 11/07/16 0000 Signed Impressions: Service Date/Time: Monday, November 07, 2016 09:33 - CONCLUSION: No DVT of the left lower extremity. Nonspecific subcutaneous edema. Mookie Scales MD Physical Exam GENERAL: Intubated. SKIN: Cool and dry. No generalized rash, no ecchymosis, no peripheral embolic lesions. HEAD: Atraumatic. Normocephalic. No temporal or scalp tenderness. HEENT: [place] conjunctivae, no petechia or hemorrhage. No scleral icterus. Moist mucosa. NECK: Trachea midline. No JVD or lymphadenopathy. Supple, nontender, no meningeal signs. CARDIOVASCULAR: Regular rate and rhythm. LARRY. RESPIRATORY: Coarse breath sounds. GASTROINTESTINAL: Abdomen soft, non-tender. No masses palpable. EXTREMITIES: No clubbing, cyanosis. No edema. NEUROLOGICAL: Opens eyes. L hemiparesis, has some movement in her LLE but not in her LUE PSYCH: Unable to fully assess. LINE: Central line with no evidence of infection : Carter cath in place, clear urine. Assessment & Plan Remarks IMPRESSION Sepsis/Recurrent endocarditis. Prosthetic aortic valve endocarditis. Strep viridans. Respiratory failure, etiology? - CHF, has known low EF S/P AVR and MVR for severe AI and MR due to IE Episode of IE last year with complications History of IVDU Seizure. RECOMMENDATION Continue Penicillin IV. Monitor temps. Monitor progress Saeid Suero MD Nov 13, 2016 12:33
[2016-11-13] MEDS: ACETAMINOPHEN/HYDROcodone 325 MG/5 MG TAB PO PRN (15:48)
--- NOTE | 2016-11-13 16:42 | HHI.CCPN ---
Subjective Remarks/Hospital Course 26 y/o s/p MVR, AVR September 03 for endocarditis. She continued to use iv drugs until mid-October. Presents now with gross fluid overload and hypoxemic respiratory failure, with severe sepsis 11/07/16: Patient remains in septic shock and respiratory failure, remains on dobutamine, Levophed added. Requiring BiPAP. White count slightly improved 26, 000 from [id number]. 2-D echo showed possible large vegetation on the prosthetic aortic valve 11/08/16: Currently remains on 1 mcg/m of Levophed, 2.5 mg per KG per minute of dobutamine. Breathing improved currently on 3 L nasal cannula. Urine output 8.6 L in 24 hours with diuresis. Chest x-ray shows persistent bilateral effusion. 2d Echo showing probable AV vegetation. 11/09 Patient is off Levophed. Remains on dobutamine. Afebrile. Awake and alert on 2L oxygen. 11/10: yesterday afternoon had witnessed GTC seizure with associated hypoxic respiratory failure requiring emergent re-intubation. MRI at that time demonstrated multiple new and subacute infarcts as well as a left frontal mass vs. abscess. cultures persistently positive with strep viridans. this morning, weakly following commands in LUE. 11/11: more awake this morning. however, failed SBT twice this morning for apnea. 11/12: continues to fail SBT for somnolence and tachypnea. palliative care to see today. no clinical changes. 11/13: Surprisingly alert, comfortable respiratory pattern. CT Scan today with enlarging left frontal lobe hematoma, now 3.5 X 4.5 cm. Objective Vital Signs Date Time Temp Pulse Resp B/P Pulse Ox O2 Delivery O2 Flow Rate FiO2 11/13/16 16:00 97.6 87 16 111/68 100 11/13/16 13:07 40 11/12/16 07:00 Mechanical Ventilator 11/09/16 07:54 2.00 Intake and Output 11/12/16 11/12/16 11/13/16 08:00 16:00 00:00 Intake Total 1020 ml 418 ml 764 ml Output Total 1500 ml 800 ml 2200 ml Balance -480 ml -382 ml -1436 ml Result Diagram: 11/13/16 0810 11/13/16 0810 Imaging Last Impressions Chest X-Ray 11/08/16 0600 Signed Impressions: Service Date/Time: October 02:25 - CONCLUSION: Persistent bibasilar effusions with associated airspace disease. No interval change. Milan Aguilar MD Lower Extremity Ultrasound 11/07/16 0000 Signed Impressions: Service Date/Time: Monday, November 07, 2016 09:33 - CONCLUSION: No DVT of the left lower extremity. Nonspecific subcutaneous edema. Mookie Scales MD Objective Remarks GENERAL: Patient is 26 yo critically ill, intubated, alert. SKIN: Warm and dry. HEAD: Normocephalic. EYES: Conjunctival icterus. NECK: Supple, trachea midline. CARDIOVASCULAR: Regular rate and rhythm , 3/6 Systolic murmur in apex and aortic outflow tract RESPIRATORY: Breath sounds equal bilaterally. orotracheally intubated. GASTROINTESTINAL: Abdomen soft, non-tender, nondistended. BS active. MUSCULOSKELETAL: No cyanosis, or edema. Well perfused, trace edema. Neuro: Alert, tracts with eyes. Purposeful with right hand. Protects airway. 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 Her course has now been complicated by GTC seizures likely secondary to multiple new septic embolic strokes. Dr. Meier has weighed in and there is no surgical option for her. From a neurosurgical standpoint, not a good operative candidate for biopsy of her left frontal mass or drainage from any intracranial abscess. From a cardiology standpoint, I have spoken with Dr. Blanc who agrees we have failed both medical and surgical options for the treatment of her recurrence of her endocarditis. I do not think the medical community has anything additional to offer this unfortunate 26yF, as she has failed all the therapy we have available to her. We will re-engage palliative care. Her mother continues to want aggressive care. I explained that this would likely involve tracheostomy and PEG tube, and she expressed understanding. Her prognosis remains poor. Plan by systems: Neurologic: Acute on Chronic pain IV drug abuse, with relapse History of CVA with residual left-sided weakness Multiple new embolic CVAs Left frontal mass --propofol for goal RASS -2. --Monitor neuro status and avoid sedatives --Nsgy consulted Respiratory: Acute hypoxic respiratory failure Bilateral pleural effusions History of Bilateral lower lobe subsegmental pulmonary embolism --wean fio2 for goal spo2 > 92% --Bronchodilators --daily SBTs. 09/01 CT PE: bilateral lower lobe emboli, anticoagulation on hold given hemorrhagic brain lesion --11/13: Trial extubation. 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 Blanc, --Cardiothoracic surgery consulted patient is not a candidate for valvular re do surgery due to active drug use increase IV lasix to 20mg iv q6h, IV albumin 25 g IV every 12 --Aldactone 50 mg every 12 --Off Levophed, off dobutamine. On ASA, Ramipril 2.5mg daily, Coreg 3.125mg BID Renal: Acute Kidney insufficiency Metabolic acidosis --Monitor renal function, I/O's, electrolytes replacement as needed -On Lasix 20mg Q6, Aldactone 50mg BID, KCl 30meq daily, Albumin 25gms Q12 GI: Acute protein calorie malnutrition -Elevated LFT's...trending down on TFs --Monitor LFT's. Heme: Supratherapeutic INR History of Bilateral lower lobe subsegmental pulmonary embolism History of nonocclusive left femoral vein DVT 08/20 Anemia, Thrombocytopenia -holding anticoagulation given intracranial hemorrhage. -Monitor CBC coags ID: Gram positive Bacteremia Probable prosthetic aortic valve vegetation Septic shock Previous MRSA endocarditis --Continue vancomycin, Cefepime 2 gm IV q8. Cardiology cardiothoracic surgery consulted-not a surgical candidate --ID is following Endocrine: -- Electrolyte replacement per protocol --SSI if needed for glycemic control Prophylaxis: GI Prophylaxis Protonix 40 mg IV daily 24 hours DVT Prophylaxis -- SCDs Holding pharmacologic DVT prophylaxis in the setting of intracranial hemorrhage. Overall impression: Bacterial prosthetic-valve endocarditis. Source control will be problematic. Problem Qualifiers (1) Prosthetic valve endocarditis: Qualified Code: T82.6XXA - Prosthetic valve endocarditis, initial encounter Darrion Novak MD Nov 13, 2016 16:42
[2016-11-13] MEDS ORDERED: POTASSIUM CHLOR 40 MEQ PREMIX 100 ML IV ONE (17:00)
[2016-11-14] VITALS (14 sets, daily range): BP systolic 92–109; BP diastolic 64–77; PULSE 95–120; RESP 12–21; TEMP 97.5–99.6; O2SAT 95–100
[2016-11-14] MEDS: PANTOPRAZOLE SODIUM 40 MG VIAL IV PUSH SCH
[2016-11-14] MEDS: RESP: ALBUTEROL 2.5 MG/IPRATROPIUM 0.5 MG NEB (SCH) NEB ×4 (03:57→21:22)
[2016-11-14] MEDS: ALBUMIN HUMAN 25% 25 GM/100 ML BAGP IV SCH ×2 (04:56→14:12)
[2016-11-14] MEDS: metroNIDAZOLE 500 MG INJ 100 ML IV SCH ×2 (04:56→12:00)
[2016-11-14] MEDS: levETIRAcetam INJ 500 MG in SODIUM CHLORIDE 0.9% INJ 100 ML IV SCH ×2 (04:56→19:04)
[2016-11-14] MEDS: FUROSEMIDE 20 MG/2 ML VIAL IV PUSH SCH ×4 (04:57→21:00)
[2016-11-14] MEDS: PENICILLIN G POTASSIUM INJ 3,000,000 UNITS in SODIUM CHLORIDE 0.9% INJ 100 ML IV SCH ×6 (04:58→22:53)
[2016-11-14 07:56] LABS: POTASSIUM 3.2 MEQ/L (3.5-5.1); TOTAL BILIRUBIN ADULT 4.5 MG/DL (0.2-1.0)
[2016-11-14 08:00] LABS: CALCIUM-PROTEIN CORRECTED 7.1 MG/DL (8.5-10.1)
[2016-11-14] MEDS: CHLORHEXIDINE 0.12% (ORAL KIT) 15 ML CUP MT SCH ×2 (08:00→20:00)
[2016-11-14] MEDS: RAMIPRIL 2.5 MG CAP PO SCH (08:05)
[2016-11-14] MEDS: SODIUM CHLORIDE 0.9% FLUSH 5 ML FLUSH FLUSH SCH ×2 (09:00→21:00)
[2016-11-14] MEDS: CARVEDILOL 3.125 MG TAB PO SCH ×2 (09:00→21:00)
[2016-11-14] MEDS ORDERED: CALCIUM GLUCONATE INJ 1 GM in DEXTROSE 5% IN WATER 100ML INJ 100 ML IV ONE ×2 (09:00)
[2016-11-14] MEDS: LACTOBACILLUS ACIDOPHILUS TAB PO SCH ×2 (09:17→22:52)
[2016-11-14] MEDS: POTASSIUM CHLORIDE 10 MEQ CONTROLLED RELEASE TAB PO SCH (09:17)
[2016-11-14] MEDS: CITALOPRAM HYDROBROMIDE 40 MG TAB PO SCH (09:17)
[2016-11-14] MEDS: FERROUS SULFATE 325 MG (65 MG ELEMENTAL IRON) TAB PO SCH ×2 (09:17→22:52)
[2016-11-14] MEDS: ASPIRIN 81 MG CHEW TAB PO SCH (09:17)
[2016-11-14] MEDS: DOCUSATE SODIUM 100 MG CAP PO SCH ×2 (09:18→21:09)
[2016-11-14] MEDS: SPIRONOLACTONE 50 MG TAB PO SCH ×2 (09:18→19:03)
[2016-11-14] MEDS: POTASSIUM CHLOR 40 MEQ PREMIX 100 ML IV PRN ×2 (09:18→11:11)
--- NOTE | 2016-11-14 09:53 | HHI.NSPN ---
History Chief Complaint: new left frontal hemorrhagic infarct Interval History 26 yr old with recurrent septic emboli to the brain, this time to the left frontal lobe. She presented with sepsis. She was still intubated and on dobutamine but is weaning from the versed. She opens her eyes and is purposeful with the right hand, GCS [id number] = 10T. 11/13/16 She had a repeat head CT which showed a worsening of the hyperintensity on the left frontal lobe. Clinically she remains under heavy fentanyl and versed sedation but arouses to voice and follows commands with her right side. GCS is [id number] = 10T 11/14/16 She is off the fentanyl, extubated, talking and denies pain. She is able to follow complex commands with her right hand. Review of Systems Respiratory: Negative for: shortness of breath, cough, sputum Cardiovascular: Negative for: chest pain, palpitations, orthopnea Gastrointestinal: Negative for: nausea, vomitting, diarrhea, constipation Exam Results Vital Signs Date Time Temp Pulse Resp B/P Pulse Ox O2 Delivery O2 Flow Rate FiO2 11/14/16 08:33 99 Nasal Cannula 3.00 11/14/16 06:00 107 11/14/16 04:00 98.2 17 105/67 11/13/16 13:07 40 Intake and Output 11/13/16 11/13/16 11/14/16 08:00 16:00 00:00 Intake Total 626 ml 793 ml 425 ml Output Total 1100.0 ml 1900.0 ml 1300 ml Balance -474.0 ml -1107.0 ml -875 ml Physical Examination Awake, interactive, pupils equal, reactive, 5mm, but the reaction is slow Spasticity, old on the left side including left Gordon and Babinski signs, Left sided weakness or neglect, old Purposeful with the right upper and lower extremity, withdraws the left lower extremity and is able to push with the left foot Abd soft, obese, RRR, skin warm and dry, no rashes Carter still in place, central line intact. Lab, Micro, Other Results Laboratory Tests Test 11/14/16 07:10 Sodium Level 146 MEQ/L Potassium Level 3.2 MEQ/L Chloride Level 117 MEQ/L Carbon Dioxide Level 19.0 MEQ/L Anion Gap 10 MEQ/L Blood Urea Nitrogen 10 MG/DL Creatinine 0.41 MG/DL Estimat Glomerular Filtration 186 ML/MIN Rate Random Glucose 102 MG/DL Calcium Level 6.2 MG/DL Protein Corrected Calcium 7.1 MG/DL Total Bilirubin 4.5 MG/DL Aspartate Amino Transf 22 U/L (AST/SGOT) Alanine Aminotransferase 28 U/L (ALT/SGPT) Alkaline Phosphatase 53 U/L Total Protein 5.1 GM/DL Albumin 3.3 GM/DL Medical Decision Making Impression and Plan New left frontal septic embolus with associated hemorrhage, and minimal mass effect, will follow. She is stable hemodynamically and neurologically at this time. 11/13/16 Increased hyperintensity in the left frontal lobe including increased edema in the left operculum from which arises the motor speech function. The mass effect remains small for the size of the lesion. Resection is not needed as the underlying brain fiber tracts are likely to still be viable but we should maintain perfusion pressures > 65 and correct coagulopathy if it is still present. Repeat electrolytes and coagulation profile was requested. A family meeting is planned this am to discuss the goals of care. 11/14/16 Very resilient now extubated and able to be tested by speech rx. Swallow evaluation is pending. Follow up CT of the brain planned next week or sooner if needed clinically. Seizure prophylaxis continued. Total Minutes: 10 Jaswant Craig Nov 14, 2016 09:53
--- NOTE | 2016-11-14 10:22 | HHI.FPPN ---
Subjective Remarks Ms Barrios is off her vent. She is sleepy but arousable and speaks well. She has a nasal canula and appears comfortable with her breathing. She moves her right side well though she has some chronic weakness on her left side especially her left hand Objective Vitals Vital Signs Date Time Temp Pulse Resp B/P Pulse Ox O2 Delivery O2 Flow Rate FiO2 11/14/16 08:33 99 Nasal Cannula 3.00 11/14/16 06:00 107 11/14/16 04:00 111 11/14/16 04:00 98.2 107 17 105/67 95 11/14/16 02:00 107 11/14/16 00:00 99.6 115 21 101/72 96 11/14/16 00:00 112 11/13/16 22:00 127 11/13/16 21:17 92 Nasal Cannula 4.00 11/13/16 20:00 119 11/13/16 20:00 99.6 115 21 93/65 91 11/13/16 19:00 98 Nasal Cannula 2.00 11/13/16 16:48 15 11/13/16 16:35 98 Nasal Cannula 4.00 11/13/16 16:35 100 Nasal Cannula 4 11/13/16 16:00 97.6 87 16 111/68 100 11/13/16 16:00 87 11/13/16 13:07 40 11/13/16 13:07 40 11/13/16 12:00 98.2 66 16 98/69 100 11/13/16 12:00 66 11/13/16 11:26 100 40 I/O 11/13/16 11/13/16 11/13/16 11/14/16 11/14/16 11/14/16 07:00 15:00 23:00 07:00 15:00 23:00 Intake Total 626 ml 793 ml 425 ml 279 ml Output Total 1100 ml 1900 ml 1300 ml 475 ml Balance -474 ml -1107 ml -875 ml -196 ml IV Total 526 ml 524 ml 425 ml 279 ml Tube Feeding 169 ml Albumin 100 ml 100 ml Output Urine Total 1100 ml 1900 ml 1300 ml 475 ml Gastric Drainage Total 0 ml Tube Feeding Residual Discard 0 ml 0 ml # Bowel Movements 0 0 Result Diagram: 11/13/16 0810 11/14/16 0710 Objective Remarks GENERAL: female laying in bed on nasal canula in no distress SKIN: Warm and dry. R subclavian central line with no surrounding erythema. HEENT: AT/NC. Pupils equal and round. MMM. HEART: RRR with 3/6 LARRY heard throughout. (sounds a bit less loud with her room stethoscope than my own on former exam) LUNGS: Anterior lung sounds clear to auscultation. ABDOMEN: Soft, NT, ND. EXTREMITIES: No significant LE edema. NEURO: Follows commands. 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 Left-sided hemiparesis with left hand in contracture. Vascular Central Line Catheter: Yes A/P Assessment and Plan 26 year old female with history of IVDU complicated by endocarditis s/ p mitral and aortic tissue valve replacement in September, severe CHF with EF ~25% , and CVA with left-sided hemiparesis was admitted on 11/06 for respiratory failure, severe sepsis, fluid overload, and recurrent endocarditis. Blood cultures growing Strep viridans. Critical care managing the patient. Infectious disease managing antibiotic coverage. Cardiology and CT surgery consulted; patient not a candidate for a second valve replacement since she already has both MV and AV replaced in September and there is a question of current drug use. Patient had a new-onset seizure with respiratory failure on 11/09 and was subsequently intubated. MRI showing mass with surrounding hemorrhage of left frontal lobe which worsened slightly on follow up. Neurology and neurosurgery consulted. Palliative care now on board, as well. Family currently wishes to continue aggressive care. 1. Severe sepsis/septic shock from Strep viridans bacteremia and suspected infective endocarditis - Patient presented with tachycardia, tachypnea, leukocytosis with white count 27.4, and lactic acid 10.0 with evidence of end-organ dysfunction including NITISH , transaminitis, and elevated troponins - 11/05 systolic ejection murmur suggestive of possible recurrent infective endocarditis though patient denies drug use since August before her AV and MV replacements - 2D echo suggestive of AV vegetation - Line and blood cultures growing Strep viridans - Repeat blood cultures on 11/09 show no growth - ID managing antibiotics * Continue PCN (started 11/09) * Vanco (11/06-11/09) and cefepime (11/06-11/09) discontinued - ID and critical care managing patient. Appreciate their expertise 2. Acute respiratory failure - Patient initially presented on BiPAP with VBG showing severe metabolic acidosis with pH 7.19 - Admission CXR showing bilateral consolidations and pleural effusions, L>R - Respiratory status improved initially and patient was on 2L nasal cannula up until 11/09 when she had a seizure and was not able to protect her airways therefore underwent intubation - off ventilator on 11/13 and doing well 3. Intracranial hemorrhage - MRI showing widespread bilateral infarcts and focal intra-axial mass with surrounding hemorrhage of the left frontal lobe - ?Embolic focus with surrounding hemorrhage that worsened a little on repeat study but clinically is doing well - MRA showing abrupt decrease in flow at M2 branches of right MCA - Vitamin K given 11/09 since Coumadin was >5. INR 1.5 today. was on coumadin for clot prevention of valves - Neurosurgery consulted; recommended continuing with Keppra and maintaining adequate BPs 4. CHF exacerbation/fluid overload - 2D echo with EF 20-25% - Continue to diurese >4L UOP in past 24 hours - Continue spironolactone and Lasix - Home carvedilol and ramipril but hold for hypotension - Albumin BID initially per critical care 5. Thrombocytopenia - Improving. Platelets up to 89 today. Likely secondary to septic shock and coagulopathy - Monitor closely 6. History of PE - INR supratherapeutic on admission therefore Coumadin was held - Now patient with intracranial breed and INR basically stable - Vitamin K given on 11/09 FEN: - Fluids:Receiving volume through various drips and IV medications. Avoid additional secondary to cardiogenic shock - Electrolytes: Replete per protocol - Nutrition: NPO - GI prophylaxis: Protonix - DVT prophylaxis: Anticoagulation C/I given intracranial bleed and initial INR supratherapeutic Discharge Planning Unclear discharge timetable right now. Problem List: (1) Septic shock Status: Acute (2) Gram-positive bacteremia Status: Acute (3) Chronic systolic (congestive) heart failure Status: Chronic (4) Acute respiratory failure Status: Resolved (5) Seizure Status: Acute (6) Thrombocytopenia Status: Acute (7) CHF exacerbation Status: Acute (8) Hepatitis C Status: Chronic Problem Qualifiers (1) Acute respiratory failure: Qualified Code: J96.01 - Acute respiratory failure with hypoxia (2) Hepatitis C: Qualified Code: B18.2 - Chronic hepatitis C without hepatic coma Gladys Pires MD Nov 14, 2016 10:22
--- NOTE | 2016-11-14 12:54 | HHI.IDPN ---
Subjective Subjective Remarks Notes reviewed Patient was intubated weekend, on the vent and extubated 11/12 Has evidence of new [employer] bleed Temps ok, occ 99+ BC with viridans Strep Last (+) BC 11/07, BC 11/09 negative On nasal O2 Not SOB Has diarrhea Echo with AV vegetation Not surgical candidate for redo valve Antibiotics PCN Flagyl Lines Central line Past Medical History Hospitalization from October to December 2015 for infective endocarditis and subsequent complication Hospitalization June 22 to July 23 for CHF and cervical discitis She's had CVA with subarachnoid hemorrhage, embolic lesions to the brain lungs and spleen as a result of her endocarditis Known IV drug use, patient states last time she used was prior to her hospitalization in August 2016 Bilateral sacroiliitis CVA with residual left-sided hemiplegia Past Surgical History Surgery on her discitis last July 09, 2016 AVR, MVR with tissue valve September 07, 2016 Allergies: Coded Allergies: *MDRO Multi-Drug Resistant Organism (Verified Adverse Reaction, Unknown, ) MRSA PCR screen POSITIVE- 10/18/2015 & 08/12/16 MRSA (urine, blood, 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 in sputum 2016 Objective . Vital Signs Date Time Temp Pulse Resp B/P Pulse Ox O2 Delivery O2 Flow Rate FiO2 11/14/16 08:33 99 Nasal Cannula 3.00 11/14/16 08:00 99 Nasal Cannula 2.00 11/14/16 06:00 107 11/14/16 04:00 111 11/14/16 04:00 98.2 107 17 105/67 95 11/14/16 02:00 107 11/14/16 00:00 99.6 115 21 101/72 96 11/14/16 00:00 112 11/13/16 22:00 127 11/13/16 21:17 92 Nasal Cannula 4.00 11/13/16 20:00 119 11/13/16 20:00 99.6 115 21 93/65 91 11/13/16 19:00 98 Nasal Cannula 2.00 11/13/16 16:48 15 11/13/16 16:35 98 Nasal Cannula 4.00 11/13/16 16:35 100 Nasal Cannula 4 11/13/16 16:00 97.6 87 16 111/68 100 11/13/16 16:00 87 11/13/16 13:07 40 11/13/16 13:07 40 11/13/16 11/13/16 11/14/16 15:00 23:00 07:00 Intake Total 793 ml 425 ml 279 ml Output Total 1900 ml 1300 ml 475 ml Balance -1107 ml -875 ml -196 ml IV Total 524 ml 425 ml 279 ml Tube Feeding 169 ml Albumin 100 ml Output Urine Total 1900 ml 1300 ml 475 ml Gastric Drainage Total 0 ml Tube Feeding Residual Discard 0 ml 0 ml # Bowel Movements 0 0 . Laboratory Tests Test 11/13/16 08:10 White Blood Count 8.8 TH/MM3 Red Blood Count 3.18 MIL/MM3 Hemoglobin 9.6 GM/DL Hematocrit 29.8 % Mean Corpuscular Volume 94.0 FL Mean Corpuscular Hemoglobin 30.1 PG Mean Corpuscular Hemoglobin 32.1 % Concent Red Cell Distribution Width 20.8 % Platelet Count 89 TH/MM3 Mean Platelet Volume 8.7 FL Neutrophils (%) (Auto) 78.7 % Lymphocytes (%) (Auto) 11.8 % Monocytes (%) (Auto) 7.4 % Eosinophils (%) (Auto) 1.6 % Basophils (%) (Auto) 0.5 % Neutrophils # (Auto) 6.9 TH/MM3 Lymphocytes # (Auto) 1.0 TH/MM3 Monocytes # (Auto) 0.7 TH/MM3 Eosinophils # (Auto) 0.1 TH/MM3 Basophils # (Auto) 0.0 TH/MM3 CBC Comment AUTO DIFF Differential Comment AUTO DIFF CONFIRMED Platelet Estimate LOW Platelet Morphology Comment NORMAL Ovalocytes 1+ Laboratory Tests Test 11/13/16 11/14/16 08:10 07:10 Sodium Level 140 MEQ/L 146 MEQ/L Potassium Level 3.9 MEQ/L 3.2 MEQ/L Chloride Level 104 MEQ/L 117 MEQ/L Carbon Dioxide Level 25.9 MEQ/L 19.0 MEQ/L Anion Gap 10 MEQ/L 10 MEQ/L Blood Urea Nitrogen 11 MG/DL 10 MG/DL Creatinine 0.72 MG/DL 0.41 MG/DL Estimat Glomerular Filtration 97 ML/MIN 186 ML/MIN Rate Random Glucose 94 MG/DL 102 MG/DL Calcium Level 8.9 MG/DL 6.2 MG/DL Total Bilirubin 6.6 MG/DL 4.5 MG/DL Aspartate Amino Transf 37 U/L 22 U/L (AST/SGOT) Alanine Aminotransferase 42 U/L 28 U/L (ALT/SGPT) Alkaline Phosphatase 80 U/L 53 U/L Total Protein 7.0 GM/DL 5.1 GM/DL Albumin 4.3 GM/DL 3.3 GM/DL Protein Corrected Calcium 7.1 MG/DL Imaging Chest X-Ray 11/08/16 0600 Signed Impressions: Service Date/Time: October 02:25 - CONCLUSION: Persistent bibasilar effusions with associated airspace disease. No interval change. Milan Aguilar MD Lower Extremity Ultrasound 11/07/16 0000 Signed Impressions: Service Date/Time: Monday, November 07, 2016 09:33 - CONCLUSION: No DVT of the left lower extremity. Nonspecific subcutaneous edema. Mookie Scales MD Physical Exam GENERAL: awake and alert, comfortable on nasal O2 SKIN: Cool and moist. No generalized rash, no ecchymosis, no peripheral embolic lesions seen HEENT: [place] conjunctivae, no petechia or hemorrhage. No scleral icterus. No injection or drainage. Nose without bleeding, or purulent drainage. Moist oral mucosa. NO oral thrush NECK: Trachea midline. No JVD or lymphadenopathy. Supple, nontender, no meningeal signs. CARDIOVASCULAR: Regular rate and rhythm. There is a systolic murmur heard on the whole left precordium and base of the heart. No pericardial rub heard. RESPIRATORY: Coarse breath sounds bilaterally. Decreased breath sounds at the bases. GASTROINTESTINAL: Abdomen soft, non-tender, nondistended. Bowel sounds are present and normoactive. No organomegaly. No guarding. MUSCULOSKELETAL: Extremities without clubbing, cyanosis, warm and well perfused. Has pitting edema on LLE. No joint tenderness. No calf tenderness. Negative Homans sign bilaterally. NEUROLOGICAL: Awake and alert. L hemiparesis, has some movement in her LLE but not in her LUE PSYCH: Cooperative LINE: Central line with no evidence of infection : Carter cath in place, urine looks clear Assessment & Plan Remarks IMPRESSION Respiratory failure, etiology? - CHF AV IE, C/S Strep viridans New hemorrhagic CVA S/P AVR and MVR for severe AI and MR due to IE Episode of IE last year with complications Known IVDU Diarrhea RECOMMENDATION Continue IV PCN Add Gentamicin, follow creat Also on Flagyl Check C diff Monitor progress Kenia Parson MD Nov 14, 2016 12:54
[2016-11-14] MEDS ORDERED: Gentamicin Consult Pharmacy 1 EA OTHER SCH ×2 (13:00→14:00)
--- NOTE | 2016-11-14 13:05 | HHI.CCPN ---
Subjective Remarks/Hospital Course 26 y/o s/p MVR, AVR September 03 for endocarditis. She continued to use iv drugs until mid-October. Presents now with gross fluid overload and hypoxemic respiratory failure, with severe sepsis 11/07/16: Patient remains in septic shock and respiratory failure, remains on dobutamine, Levophed added. Requiring BiPAP. White count slightly improved 26, 000 from [id number]. 2-D echo showed possible large vegetation on the prosthetic aortic valve 11/08/16: Currently remains on 1 mcg/m of Levophed, 2.5 mg per KG per minute of dobutamine. Breathing improved currently on 3 L nasal cannula. Urine output 8.6 L in 24 hours with diuresis. Chest x-ray shows persistent bilateral effusion. 2d Echo showing probable AV vegetation. 11/09 Patient is off Levophed. Remains on dobutamine. Afebrile. Awake and alert on 2L oxygen. 11/10: yesterday afternoon had witnessed GTC seizure with associated hypoxic respiratory failure requiring emergent re-intubation. MRI at that time demonstrated multiple new and subacute infarcts as well as a left frontal mass vs. abscess. cultures persistently positive with strep viridans. this morning, weakly following commands in LUE. 11/11: more awake this morning. however, failed SBT twice this morning for apnea. 11/12: continues to fail SBT for somnolence and tachypnea. palliative care to see today. no clinical changes. 11/13: Surprisingly alert, comfortable respiratory pattern. CT Scan today with enlarging left frontal lobe hematoma, now 3.5 X 4.5 cm. 11/14: Tolerating extubation. Some symptoms from frontal lobe hematoma. Good response to diuretics. Objective Vital Signs Date Time Temp Pulse Resp B/P Pulse Ox O2 Delivery O2 Flow Rate FiO2 11/14/16 08:33 99 Nasal Cannula 3.00 11/14/16 06:00 107 11/14/16 04:00 98.2 17 105/67 11/13/16 13:07 40 Intake and Output 11/13/16 11/13/16 11/14/16 08:00 16:00 00:00 Intake Total 626 ml 793 ml 425 ml Output Total 1100.0 ml 1900.0 ml 1300 ml Balance -474.0 ml -1107.0 ml -875 ml Result Diagram: 11/13/16 0810 11/14/16 0710 Imaging Last Impressions Chest X-Ray 11/08/16 0600 Signed Impressions: Service Date/Time: October 02:25 - CONCLUSION: Persistent bibasilar effusions with associated airspace disease. No interval change. Milan Aguilar MD Lower Extremity Ultrasound 11/07/16 0000 Signed Impressions: Service Date/Time: Monday, November 07, 2016 09:33 - CONCLUSION: No DVT of the left lower extremity. Nonspecific subcutaneous edema. Mookie Scales MD Objective Remarks GENERAL: Patient is 26 yo critically ill, intubated, alert. SKIN: Warm and dry. HEAD: Normocephalic. EYES: Conjunctival icterus. NECK: Supple, trachea midline. No stridor. CARDIOVASCULAR: Regular rate and rhythm , 3/6 Systolic murmur in apex and aortic outflow tract RESPIRATORY: Breath sounds equal bilaterally. Normal excursions. GASTROINTESTINAL: Abdomen soft, non-tender, nondistended. BS active. MUSCULOSKELETAL: No cyanosis, or edema. Well perfused, trace edema. Neuro: Alert, tracts with eyes. Purposeful with right hand. Protects airway. 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 Her course has now been complicated by GTC seizures likely secondary to multiple new septic embolic strokes. Dr. Meier has weighed in and there is no surgical option for her. From a neurosurgical standpoint, not a good operative candidate for biopsy of her left frontal mass or drainage from any intracranial abscess. From a cardiology standpoint, I have spoken with Dr. Blanc who agrees we have failed both medical and surgical options for the treatment of her recurrence of her endocarditis. I do not think the medical community has anything additional to offer this unfortunate 26yF, as she has failed all the therapy we have available to her. We will re-engage palliative care. Her mother continues to want aggressive care. I explained that this would likely involve tracheostomy and PEG tube, and she expressed understanding. Her prognosis remains poor. 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 09/01 CT PE: bilateral lower lobe emboli, anticoagulation on hold given hemorrhagic brain lesion --11/13: Trial extubation. 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 Blanc, --Cardiothoracic surgery consulted patient is not a candidate for valvular re do surgery due to active drug use increase IV lasix to 20mg iv q6h, IV albumin 25 g IV every 12 --Aldactone 50 mg every 12 --On ASA, Ramipril 2.5mg daily, Coreg 3.125mg BID Renal: Acute Kidney insufficiency Metabolic acidosis --Monitor renal function, I/O's, electrolytes replacement as needed -On Lasix 20mg Q6, Aldactone 50mg BID, KCl 30meq daily, Albumin 25gms Q12 GI: Acute protein calorie malnutrition -Elevated LFT's...trending down on TFs --Monitor LFT's. Heme: Supratherapeutic INR History of Bilateral lower lobe subsegmental pulmonary embolism History of nonocclusive left femoral vein DVT 08/20 Anemia, Thrombocytopenia -holding anticoagulation given intracranial hemorrhage. -Monitor CBC coags ID: Gram positive Bacteremia Probable prosthetic aortic valve vegetation Septic shock Previous MRSA endocarditis --Continue vancomycin, Cefepime 2 gm IV q8. Cardiology cardiothoracic surgery consulted-not a surgical candidate --ID is following Endocrine: -- Electrolyte replacement per protocol --SSI if needed for glycemic control Prophylaxis: GI Prophylaxis Protonix 40 mg IV daily 24 hours DVT Prophylaxis -- SCDs Holding pharmacologic DVT prophylaxis in the setting of intracranial hemorrhage. Overall impression: Bacterial prosthetic-valve endocarditis. Source control will be problematic. Frontal hemorrhage has enlarged. Problem Qualifiers (1) Prosthetic valve endocarditis: Qualified Code: T82.6XXA - Prosthetic valve endocarditis, initial encounter Darrion Novak MD Nov 14, 2016 13:05
[2016-11-14] MEDS ORDERED: DOPamine INJ PREMIX 500 ML ONE (13:19)
[2016-11-14] MEDS ORDERED: metroNIDAZOLE 500 MG TAB PO SCH (14:00)
[2016-11-14] MEDS ORDERED: Gentamicin Consult Pharmacy 1 EA XX SCH (14:04)
[2016-11-14] MEDS ORDERED: DOPamine 800 MG/D5W PREMIX 500 ML IV SCH (15:00)
[2016-11-14] MEDS: GENTAMICIN INJ 60 MG in SODIUM CHLORIDE 0.9% INJ 100 ML IV SCH (15:16)
[2016-11-14 15:38] LABS: BICARBONATE 26.7 MEQ/L (21.0-32.0)
[2016-11-14] MEDS ORDERED: SODIUM BICARBONATE 8.4% INJ 50 MEQ/50 ML SYR ONE (16:05)
[2016-11-14] MEDS ORDERED: SODIUM BICARBONATE 8.4% INJ 50 MEQ/50 ML SYR IV ONE (16:15)
[2016-11-14 18:26] LABS: C. DIFF EPI 027 PRESUMPTIVE NEGATIVE (NEGATIVE); C. DIFF TOXIN PCR NEGATIVE (NEGATIVE)
[2016-11-14] MEDS: metroNIDAZOLE 500 MG TAB PO SCH (22:52)
[2016-11-15] VITALS (10 sets, daily range): BP systolic 96–109; BP diastolic 58–79; PULSE 83–109; RESP 18–20; TEMP 97.6–98.6; O2SAT 94–100
[2016-11-15] MEDS: FUROSEMIDE 20 MG/2 ML VIAL IV PUSH SCH ×3 (01:13→21:00)
[2016-11-15] MEDS: GENTAMICIN INJ 60 MG in SODIUM CHLORIDE 0.9% INJ 100 ML IV SCH ×3 (01:35→16:00)
[2016-11-15] MEDS: PANTOPRAZOLE SODIUM 40 MG VIAL IV PUSH SCH (01:35)
[2016-11-15] MEDS: ALBUMIN HUMAN 25% 25 GM/100 ML BAGP IV SCH ×2 (01:36→16:16)
[2016-11-15] MEDS: PENICILLIN G POTASSIUM INJ 3,000,000 UNITS in SODIUM CHLORIDE 0.9% INJ 100 ML IV SCH ×6 (01:36→23:12)
[2016-11-15] MEDS: metroNIDAZOLE 500 MG TAB PO SCH ×2 (04:00→13:05)
[2016-11-15] MEDS: RESP: ALBUTEROL 2.5 MG/IPRATROPIUM 0.5 MG NEB (SCH) NEB ×4 (04:12→21:58)
[2016-11-15] MEDS: levETIRAcetam INJ 500 MG in SODIUM CHLORIDE 0.9% INJ 100 ML IV SCH ×2 (06:35→19:39)
[2016-11-15] MEDS: CHLORHEXIDINE 0.12% (ORAL KIT) 15 ML CUP MT SCH ×2 (08:00→20:00)
[2016-11-15] MEDS: SODIUM CHLORIDE 0.9% FLUSH 5 ML FLUSH FLUSH SCH ×2 (08:18→23:26)
[2016-11-15] MEDS: ASPIRIN 81 MG CHEW TAB PO SCH (08:20)
[2016-11-15] MEDS: RAMIPRIL 2.5 MG CAP PO SCH (08:20)
[2016-11-15] MEDS: CARVEDILOL 3.125 MG TAB PO SCH (08:20)
[2016-11-15] MEDS: POTASSIUM CHLORIDE 10 MEQ CONTROLLED RELEASE TAB PO SCH (08:21)
[2016-11-15] MEDS: FERROUS SULFATE 325 MG (65 MG ELEMENTAL IRON) TAB PO SCH ×2 (08:21→23:27)
[2016-11-15] MEDS: LACTOBACILLUS ACIDOPHILUS TAB PO SCH ×2 (08:21→23:27)
[2016-11-15] MEDS: CITALOPRAM HYDROBROMIDE 40 MG TAB PO SCH (08:21)
--- NOTE | 2016-11-15 08:22 | HHI.NSPN ---
History Chief Complaint: new left frontal hemorrhagic infarct Interval History 26 yr old with recurrent septic emboli to the brain, this time to the left frontal lobe. She presented with sepsis. She was still intubated and on dobutamine but is weaning from the versed. She opens her eyes and is purposeful with the right hand, GCS [id number] = 10T. 11/13/16 She had a repeat head CT which showed a worsening of the hyperintensity on the left frontal lobe. Clinically she remains under heavy fentanyl and versed sedation but arouses to voice and follows commands with her right side. GCS is [id number] = 10T 11/14/16 She is off the fentanyl, extubated, talking and denies pain. She is able to follow complex commands with her right hand. 11/15/16 She is tired but interactive and follows commands on the right. She passed her swallow evaluation yesterday. Review of Systems General: Negative for: fever, chills, insomnia Respiratory: Negative for: shortness of breath, cough, sputum Cardiovascular: Negative for: chest pain, palpitations, orthopnea Gastrointestinal: Negative for: nausea, vomitting, diarrhea, constipation Exam Results Vital Signs Date Time Temp Pulse Resp B/P Pulse Ox O2 Delivery O2 Flow Rate FiO2 11/15/16 06:00 83 11/15/16 04:00 98.6 20 104/70 100 11/14/16 21:22 Nasal Cannula 3.00 11/13/16 13:07 40 Intake and Output 11/14/16 11/14/16 11/15/16 08:00 16:00 00:00 Intake Total 279 ml 720 ml 740 ml Output Total 475 ml 600 ml 1200 ml Balance -196 ml 120 ml -460 ml Physical Examination Awake, interactive, pupils equal, reactive, 5mm, but the reaction is slow, speech fluent and appropriate Spasticity, old on the left side including left Gordon and Babinski signs, Left sided weakness or neglect, old Purposeful with the right upper and lower extremity, withdraws the left lower extremity and is able to push with the left foot Abd soft, obese, RRR, skin warm and dry, no rashes Carter still in place, central line intact. Lab, Micro, Other Results Laboratory Tests Test 11/14/16 14:37 Stool C. difficile Toxin (PCR) NEGATIVE Stl C. difficile Toxin PRESUMPTIVE Epiderm 027 NEGATIVE Sodium Level 139 MEQ/L Potassium Level 6.0 MEQ/L Chloride Level 106 MEQ/L Carbon Dioxide Level 26.7 MEQ/L Anion Gap 6 MEQ/L Blood Urea Nitrogen 14 MG/DL Creatinine 0.80 MG/DL Estimat Glomerular Filtration 86 ML/MIN Rate Random Glucose 151 MG/DL Calcium Level 9.1 MG/DL Total Protein 8.4 GM/DL Medical Decision Making Impression and Plan New left frontal septic embolus with associated hemorrhage, and minimal mass effect, will follow. She is stable hemodynamically and neurologically at this time. 11/13/16 Increased hyperintensity in the left frontal lobe including increased edema in the left operculum from which arises the motor speech function. The mass effect remains small for the size of the lesion. Resection is not needed as the underlying brain fiber tracts are likely to still be viable but we should maintain perfusion pressures > 65 and correct coagulopathy if it is still present. Repeat electrolytes and coagulation profile was requested. A family meeting is planned this am to discuss the goals of care. 11/14/16 Very resilient now extubated and able to be tested by speech rx. Swallow evaluation is pending. Follow up CT of the brain planned next week or sooner if needed clinically. Seizure prophylaxis continued. 11/15/16 On a regular diet, resume OT/PT, continue keppra. Total Minutes: 10 Jaswant Craig Nov 15, 2016 08:22
[2016-11-15] MEDS: SPIRONOLACTONE 50 MG TAB PO SCH (09:00)
[2016-11-15] MEDS: DOCUSATE SODIUM 100 MG CAP PO SCH ×2 (09:11→23:27)
--- NOTE | 2016-11-15 09:14 | HHI.FPPN ---
Subjective Remarks Patient seen this morning. No acute events overnight. She is now sating 100% on 3L, s/p extubation 11/13. Her only complaint is of some mild SOB. She states this is significantly improved compared to admission. Denies any SOLIZ or vision changes. No new numbness or weakness in the extremities. Tolerating PO diet. No N/V. Denies any F/C. (Freddie Aguilar MD R3) Objective Vitals Vital Signs Date Time Temp Pulse Resp B/P Pulse Ox O2 Delivery O2 Flow Rate FiO2 11/15/16 08:57 100 Nasal Cannula 3.00 11/15/16 06:00 83 11/15/16 04:00 98.6 85 20 104/70 100 11/15/16 04:00 85 11/15/16 02:00 86 11/15/16 00:00 98.3 86 20 104/75 94 11/15/16 00:00 88 11/14/16 22:00 95 11/14/16 21:22 100 Nasal Cannula 3.00 11/14/16 20:00 112 11/14/16 20:00 98.2 112 20 109/77 100 11/14/16 19:00 100 Nasal Cannula 3.00 11/14/16 18:00 117 11/14/16 16:00 98.2 118 12 92/69 95 11/14/16 16:00 118 11/14/16 14:00 120 11/14/16 12:00 95 11/14/16 12:00 97.5 95 12 92/71 100 11/14/16 10:00 102 I/O 11/14/16 11/14/16 11/14/16 11/15/16 11/15/16 11/15/16 07:00 15:00 23:00 07:00 15:00 23:00 Intake Total 279 ml 720 ml 740 ml 650 ml Output Total 475 ml 600 ml 1200 ml 350 ml Balance -196 ml 120 ml -460 ml 300 ml Intake Oral 420 ml 420 ml IV Total 279 ml 720 ml 320 ml 230 ml Output Urine Total 475 ml 600 ml 1200 ml 350 ml Stool Total 0 ml # Bowel Movements 0 4 1 (Freddie Aguilar MD R3) Result Diagram: 11/13/16 0810 11/14/16 1437 Objective Remarks GENERAL: female laying in bed on nasal canula in no distress SKIN: Warm and dry. R subclavian central line with no surrounding erythema. HEENT: AT/NC. Pupils equal and round. MMM. HEART: RRR with 3/6 LARRY heard throughout. (sounds a bit less loud with her room stethoscope than my own on former exam) LUNGS: Anterior lung sounds clear to auscultation. ABDOMEN: Soft, NT, ND. EXTREMITIES: No significant LE edema. NEURO: Follows commands. Safety Advisor right hand and wiggles all toes. Able to lift right upper and lower extremities against resistance. Some upper and lower extremity movement against gravity on the left. Left hand in contracture. 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 Blood cultures growing Strep viridans. Critical care managing the patient. Infectious disease managing antibiotic coverage. Cardiology and CT surgery consulted; patient not a candidate for a second valve replacement since she already has both MV and AV replaced in September and there is a question of current drug use. Patient had a new-onset seizure with respiratory failure on 11/09 and was subsequently intubated. MRI showing mass with surrounding hemorrhage of left frontal lobe which worsened slightly on follow up. Neurology and neurosurgery consulted. Palliative care now on board, as well. Family currently wishes to continue aggressive care. CT scan 11/13 shows enlarging left frontal lobe hematoma. She is now s/p extubation 11/13. 1. Severe sepsis/septic shock from Strep viridans bacteremia and suspected infective endocarditis - Patient presented with tachycardia, tachypnea, leukocytosis with white count 27.4, and lactic acid 10.0 with evidence of end-organ dysfunction including NITISH , transaminitis, and elevated troponins - 11/05 systolic ejection murmur suggestive of possible recurrent infective endocarditis though patient denies drug use since August before her AV and MV replacements - 2D echo suggestive of AV vegetation - Line and blood cultures 11/07 growing Strep viridans - Repeat blood cultures on 11/09 show no growth - ID managing antibiotics * Continue PCN (started 11/09) * Vanco (11/06-11/09) and cefepime (11/06-11/09) discontinued - ID and critical care managing patient. Appreciate their expertise 2. Acute respiratory failure - Patient initially presented on BiPAP with VBG showing severe metabolic acidosis with pH 7.19 - Admission CXR showing bilateral consolidations and pleural effusions, L>R - Respiratory status improved initially and patient was on 2L nasal cannula up until 11/09 when she had a seizure and was not able to protect her airways therefore underwent intubation - off ventilator on 11/13 and doing well 3. Intracranial hemorrhage - MRI showing widespread bilateral infarcts and focal intra-axial mass with surrounding hemorrhage of the left frontal lobe. CT 11/13 showed left enlarging frontal lobe hematoma. - MRA showing abrupt decrease in flow at M2 branches of right MCA - Vitamin K given 11/09 since Coumadin was >5. INR 1.5 today. was on coumadin for clot prevention of valves - Neurosurgery consulted; recommended continuing with Keppra and maintaining adequate BPs 4. CHF exacerbation/fluid overload - 2D echo with EF 20-25% - Continue to diurese >2L UOP in past 24 hours - Continue spironolactone and Lasix - Home carvedilol and ramipril but hold for hypotension - Albumin BID initially per critical care 5. Thrombocytopenia - Improving. Platelets up to 190 today. Likely secondary to septic shock and coagulopathy - Monitor closely 6. History of PE - INR supratherapeutic on admission therefore Coumadin was held - Now patient with intracranial breed and INR basically stable - Vitamin K given on 11/09 FEN: - Fluids:Receiving volume through various drips and IV medications. Avoid additional secondary to cardiogenic shock - Electrolytes: Replete per protocol. Calcium low yesterday, increased to 8.4 after 1mg IV calcium gluconate. Potassium elevated at 6.0. Re-checking BMP this morning. - Nutrition: NPO - GI prophylaxis: Protonix - DVT prophylaxis: Anticoagulation C/I given intracranial bleed and initial INR supratherapeutic Discharge Planning Plan for DC to rehab. Will discuss with case management. Palliative care assisting with goals of care. Discussed case with Dr. Novak. Patient responding well clinically to diuretics. Sats improving s/p extubation 11/13. Okay to DC to floor this afternoon. Will send on tele with hold parameters for BP meds. (Freddie Aguilar MD R3) Attending Attestation Pt examined and case discussed with resident physician I have read the above note and agree with the assessment/plan as discussed with me I was involved in all medical decision making for this patient. Charbel Zayas MD (Charbel Zayas MD) Problem List: (1) Septic shock Status: Acute (2) Seizure Status: Acute (3) Thrombocytopenia Status: Acute (4) CHF exacerbation Status: Acute (5) Hepatitis C Status: Chronic (6) Dietary counseling and surveillance Status: Acute (7) Endocarditis Status: Acute (8) Streptococcus viridans infection Status: Acute (9) Cerebrovascular accident, embolic Status: Acute (10) Fluid overload Status: Acute (Freddie Aguilar MD R3) Problem Qualifiers (1) Hepatitis C: Qualified Code: B18.2 - Chronic hepatitis C without hepatic coma Freddie Aguilar MD R3 Nov 15, 2016 09:14 Charbel Zayas MD Nov 15, 2016 19:30
--- NOTE | 2016-11-15 09:34 | HHI.CCPN ---
Subjective Remarks/Hospital Course 26 y/o s/p MVR, AVR September 03 for endocarditis. She continued to use iv drugs until mid-October. Presents now with gross fluid overload and hypoxemic respiratory failure, with severe sepsis 11/07/16: Patient remains in septic shock and respiratory failure, remains on dobutamine, Levophed added. Requiring BiPAP. White count slightly improved 26, 000 from [id number]. 2-D echo showed possible large vegetation on the prosthetic aortic valve 11/08/16: Currently remains on 1 mcg/m of Levophed, 2.5 mg per KG per minute of dobutamine. Breathing improved currently on 3 L nasal cannula. Urine output 8.6 L in 24 hours with diuresis. Chest x-ray shows persistent bilateral effusion. 2d Echo showing probable AV vegetation. 11/09 Patient is off Levophed. Remains on dobutamine. Afebrile. Awake and alert on 2L oxygen. 11/10: yesterday afternoon had witnessed GTC seizure with associated hypoxic respiratory failure requiring emergent re-intubation. MRI at that time demonstrated multiple new and subacute infarcts as well as a left frontal mass vs. abscess. cultures persistently positive with strep viridans. this morning, weakly following commands in LUE. 11/11: more awake this morning. however, failed SBT twice this morning for apnea. 11/12: continues to fail SBT for somnolence and tachypnea. palliative care to see today. no clinical changes. 11/13: Surprisingly alert, comfortable respiratory pattern. CT Scan today with enlarging left frontal lobe hematoma, now 3.5 X 4.5 cm. 11/14: Tolerating extubation. Some symptoms from frontal lobe hematoma. Good response to diuretics. 11/15: Breathing comfortably. Responds well to diuretics. Transfer. Objective Vital Signs Date Time Temp Pulse Resp B/P Pulse Ox O2 Delivery O2 Flow Rate FiO2 11/15/16 08:57 100 Nasal Cannula 3.00 11/15/16 08:00 88 11/15/16 08:00 98.6 18 109/79 11/13/16 13:07 40 Intake and Output 11/14/16 11/14/16 11/15/16 08:00 16:00 00:00 Intake Total 279 ml 720 ml 740 ml Output Total 475 ml 600 ml 1200 ml Balance -196 ml 120 ml -460 ml Result Diagram: 11/13/16 0810 11/14/16 1437 Imaging Last Impressions Chest X-Ray 11/08/16 0600 Signed Impressions: Service Date/Time: October 02:25 - CONCLUSION: Persistent bibasilar effusions with associated airspace disease. No interval change. Milan Aguilar MD Lower Extremity Ultrasound 11/07/16 0000 Signed Impressions: Service Date/Time: Monday, November 07, 2016 09:33 - CONCLUSION: No DVT of the left lower extremity. Nonspecific subcutaneous edema. Mookie Scales MD Objective Remarks GENERAL: Patient is 26 yo critically ill, intubated, alert. SKIN: Warm and dry. HEAD: Normocephalic. EYES: Conjunctival icterus. NECK: Supple, trachea midline. No stridor. CARDIOVASCULAR: Regular rate and rhythm , 3/6 Systolic murmur in apex and aortic outflow tract RESPIRATORY: Breath sounds equal bilaterally. Normal excursions. GASTROINTESTINAL: Abdomen soft, non-tender, nondistended. BS active. MUSCULOSKELETAL: No cyanosis, or edema. Well perfused, trace edema. Neuro: Alert, tracts with eyes. Purposeful with right hand. Protects airway. 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 Her course has now been complicated by GTC seizures likely secondary to multiple new septic embolic strokes. Dr. Meier has weighed in and there is no surgical option for her. From a neurosurgical standpoint, not a good operative candidate for biopsy of her left frontal mass or drainage from any intracranial abscess. From a cardiology standpoint, I have spoken with Dr. Blanc who agrees we have failed both medical and surgical options for the treatment of her recurrence of her endocarditis. I do not think the medical community has anything additional to offer this unfortunate 26yF, as she has failed all the therapy we have available to her. We will re-engage palliative care. Her mother continues to want aggressive care. I explained that this would likely involve tracheostomy and PEG tube, and she expressed understanding. Her prognosis remains poor. 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 09/01 CT PE: bilateral lower lobe emboli, anticoagulation on hold given hemorrhagic brain lesion --11/13: Trial extubation. 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 Blanc, --Cardiothoracic surgery consulted patient is not a candidate for valvular re do surgery due to active drug use increase IV lasix to 20mg iv q6h, IV albumin 25 g IV every 12 --Aldactone 50 mg every 12 --On ASA, Ramipril 2.5mg daily, Coreg 3.125mg BID Renal: Acute Kidney insufficiency Metabolic acidosis --Monitor renal function, I/O's, electrolytes replacement as needed -On Lasix 20mg Q6, Aldactone 50mg BID, KCl 30meq daily, Albumin 25gms Q12 GI: Acute protein calorie malnutrition -Elevated LFT's...trending down on TFs --Monitor LFT's. Heme: Supratherapeutic INR History of Bilateral lower lobe subsegmental pulmonary embolism History of nonocclusive left femoral vein DVT 08/20 Anemia, Thrombocytopenia -holding anticoagulation given intracranial hemorrhage. -Monitor CBC coags ID: Gram positive Bacteremia Probable prosthetic aortic valve vegetation Septic shock Previous MRSA endocarditis --Continue vancomycin, Cefepime 2 gm IV q8. Cardiology cardiothoracic surgery consulted-not a surgical candidate --ID is following Endocrine: -- Electrolyte replacement per protocol --SSI if needed for glycemic control Prophylaxis: GI Prophylaxis Protonix 40 mg IV daily 24 hours DVT Prophylaxis -- SCDs Holding pharmacologic DVT prophylaxis in the setting of intracranial hemorrhage. Overall impression: Bacterial prosthetic-valve endocarditis. Source control will be problematic. Transfer to floor with tele. Problem Qualifiers (1) Prosthetic valve endocarditis: Qualified Code: T82.6XXA - Prosthetic valve endocarditis, initial encounter Darrion Novak MD Nov 15, 2016 09:34
[2016-11-15 10:18] LABS: AUTOMATED NEUTROPHIL # 7.9 TH/MM3 (1.8-7.7); BASOPHIL # 0.1 TH/MM3 (0-0.2); BASOPHIL % 0.9 % (0.0-2.0); EOSINOPHIL # 0.1 TH/MM3 (0-0.4); EOSINOPHIL % 0.7 % (0.0-4.0); HEMO FLAGS DIFF FINAL; LYMPH % 18.7 % (9.0-44.0); LYMPHOCYTE # 2.1 TH/MM3 (1.0-4.8); MEAN CORPUSCULAR HEMOGLOBIN 29.3 PG (27.0-34.0); MEAN CORPUSCULAR HGB CONC 31.2 % (32.0-36.0); MONO % 7.7 % (0.0-8.0); PLATELET COUNT 190 TH/MM3 (150-450); RED BLOOD COUNT 3.93 MIL/MM3 (4.00-5.30); RED CELL DISTRIBUTION WIDTH 20.9 % (11.6-17.2)
[2016-11-15 10:20] LABS: ALKALINE PHOSPHATASE 82 U/L (45-117); ALT (GPT) 32 U/L (10-53); ANION GAP 9 MEQ/L (5-15); AST (GOT) 29 U/L (15-37); BICARBONATE 25.3 MEQ/L (21.0-32.0); CHLORIDE 105 MEQ/L (98-107); GLOMERULAR FILTRATION RATE 115 ML/MIN (>89); POTASSIUM 4.4 MEQ/L (3.5-5.1); SODIUM (NA) 139 MEQ/L (136-145); TOTAL BILIRUBIN ADULT 6.3 MG/DL (0.2-1.0)
[2016-11-15 10:21] LABS: BLOOD UREA NITROGEN 16 MG/DL (7-18)
--- NOTE | 2016-11-15 13:39 | HHI.IDPN ---
Subjective Subjective Remarks Notes reviewed Temps ok Not SOB, on nasal O2 Out of ICU BC with viridans Strep Last (+) BC 11/07, BC 11/09 negative Echo with AV vegetation Not surgical candidate for redo valve Antibiotics PCN Gentamicin Past Medical History Hospitalization from October to December 2015 for infective endocarditis and subsequent complication Hospitalization June 22 to July 23 for CHF and cervical discitis She's had CVA with subarachnoid hemorrhage, embolic lesions to the brain lungs and spleen as a result of her endocarditis Known IV drug use, patient states last time she used was prior to her hospitalization in August 2016 Bilateral sacroiliitis CVA with residual left-sided hemiplegia Past Surgical History Surgery on her discitis last July 09, 2016 AVR, MVR with tissue valve September 07, 2016 Allergies: Coded Allergies: *MDRO Multi-Drug Resistant Organism (Verified Adverse Reaction, Unknown, ) MRSA PCR screen POSITIVE- 10/18/2015 & 08/12/16 MRSA (urine, blood, 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 Vital Signs Date Time Temp Pulse Resp B/P Pulse Ox O2 Delivery O2 Flow Rate FiO2 11/15/16 08:57 100 Nasal Cannula 3.00 11/15/16 08:00 88 11/15/16 08:00 98.6 88 18 109/79 100 11/15/16 07:00 100 Nasal Cannula 3.00 11/15/16 06:00 83 11/15/16 04:00 98.6 85 20 104/70 100 11/15/16 04:00 85 11/15/16 02:00 86 11/15/16 00:00 98.3 86 20 104/75 94 11/15/16 00:00 88 11/14/16 22:00 95 11/14/16 21:22 100 Nasal Cannula 3.00 11/14/16 20:00 112 11/14/16 20:00 98.2 112 20 109/77 100 11/14/16 19:00 100 Nasal Cannula 3.00 11/14/16 18:00 117 11/14/16 16:00 98.2 118 12 92/69 95 11/14/16 16:00 118 11/14/16 14:00 120 11/14/16 11/14/16 11/15/16 15:00 23:00 07:00 Intake Total 720 ml 740 ml 650 ml Output Total 600 ml 1200 ml 350 ml Balance 120 ml -460 ml 300 ml Intake Oral 420 ml 420 ml IV Total 720 ml 320 ml 230 ml Output Urine Total 600 ml 1200 ml 350 ml Stool Total 0 ml # Bowel Movements 4 1 . Laboratory Tests Test 11/15/16 09:45 White Blood Count 11.0 TH/MM3 Red Blood Count 3.93 MIL/MM3 Hemoglobin 11.5 GM/DL Hematocrit 37.0 % Mean Corpuscular Volume 94.0 FL Mean Corpuscular Hemoglobin 29.3 PG Mean Corpuscular Hemoglobin 31.2 % Concent Red Cell Distribution Width 20.9 % Platelet Count 190 TH/MM3 Mean Platelet Volume 8.9 FL Neutrophils (%) (Auto) 72.0 % Lymphocytes (%) (Auto) 18.7 % Monocytes (%) (Auto) 7.7 % Eosinophils (%) (Auto) 0.7 % Basophils (%) (Auto) 0.9 % Neutrophils # (Auto) 7.9 TH/MM3 Lymphocytes # (Auto) 2.1 TH/MM3 Monocytes # (Auto) 0.8 TH/MM3 Eosinophils # (Auto) 0.1 TH/MM3 Basophils # (Auto) 0.1 TH/MM3 CBC Comment DIFF FINAL Differential Comment Laboratory Tests Test 11/14/16 11/14/16 11/15/16 07:10 14:37 09:45 Sodium Level 146 MEQ/L 139 MEQ/L 139 MEQ/L Potassium Level 3.2 MEQ/L 6.0 MEQ/L 4.4 MEQ/L Chloride Level 117 MEQ/L 106 MEQ/L 105 MEQ/L Carbon Dioxide Level 19.0 MEQ/L 26.7 MEQ/L 25.3 MEQ/L Anion Gap 10 MEQ/L 6 MEQ/L 9 MEQ/L Blood Urea Nitrogen 10 MG/DL 14 MG/DL 16 MG/DL Creatinine 0.41 MG/DL 0.80 MG/DL 0.62 MG/DL Estimat Glomerular Filtration 186 ML/MIN 86 ML/MIN 115 ML/MIN Rate Random Glucose 102 MG/DL 151 MG/DL 151 MG/DL Calcium Level 6.2 MG/DL 9.1 MG/DL 9.1 MG/DL Protein Corrected Calcium 7.1 MG/DL Total Bilirubin 4.5 MG/DL 6.3 MG/DL Aspartate Amino Transf 22 U/L 29 U/L (AST/SGOT) Alanine Aminotransferase 28 U/L 32 U/L (ALT/SGPT) Alkaline Phosphatase 53 U/L 82 U/L Total Protein 5.1 GM/DL 8.4 GM/DL 7.3 GM/DL Albumin 3.3 GM/DL 4.5 GM/DL Imaging Chest X-Ray 11/08/16 0600 Signed Impressions: Service Date/Time: October 02:25 - CONCLUSION: Persistent bibasilar effusions with associated airspace disease. No interval change. Milan Aguilar MD Lower Extremity Ultrasound 11/07/16 0000 Signed Impressions: Service Date/Time: Monday, November 07, 2016 09:33 - CONCLUSION: No DVT of the left lower extremity. Nonspecific subcutaneous edema. Mookie Scales MD Physical Exam GENERAL: awake and alert, comfortable on nasal O2 SKIN: Cool and moist. No generalized rash, no ecchymosis, no peripheral embolic lesions seen HEENT: [place] conjunctivae, no petechia or hemorrhage. No scleral icterus. No injection or drainage. Moist oral mucosa. NO oral thrush NECK: Supple, nontender, no meningeal signs. CARDIOVASCULAR: Regular rate and rhythm. There is a systolic murmur heard on the whole left precordium and base of the heart. No pericardial rub heard. RESPIRATORY: Coarse breath sounds bilaterally. Decreased breath sounds at the bases. GASTROINTESTINAL: Abdomen soft, non-tender, nondistended. Bowel sounds are present and normoactive. No organomegaly. No guarding. MUSCULOSKELETAL: Extremities without clubbing, cyanosis, warm and well perfused. No calf tenderness. Negative Homans sign bilaterally. NEUROLOGICAL: Awake and alert. L hemiparesis, has good movement in her LLE, and about 3/5 in her LUE PSYCH: Cooperative : Carter cath in place, urine looks clear Assessment & Plan Remarks IMPRESSION Respiratory failure, etiology? - CHF - toleratring extubation AV IE PVE, C/S Strep viridans New hemorrhagic CVA S/P AVR and MVR for severe AI and MR due to IE Episode of IE last year with complications Known IVDU Diarrhea RECOMMENDATION Continue IV PCN Continue Gentamicin, follow creat Stop Flagyl Monitor progress Kenia Parson MD Nov 15, 2016 13:39 Kenia Parson MD Nov 15, 2016 13:39
--- NOTE | 2016-11-15 14:07 | EKG ---
Date Performed: 11/14/2016 Time Performed: 13:11:30 PTAGE: 26 years EKG: Undetermined rhythm. Severe right axis deviation Right bundle branch block Anterolateral in farct - age undetermined Inferior ST-T changes may be due to myocardial ischemia Abnormal ECG PREVIOUS TRACING : 11/07/2016 08.39 DOCTOR: Patrick Thomas Interpretating Date/Time 11/15/2016 13:59:01
[2016-11-15] MEDS ORDERED: PHARMACY ORDERED LAB XX ONE (15:45)
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
[2016-11-15] MEDS: SPIRONOLACTONE 25 MG TAB PO SCH (18:18)
[2016-11-16] VITALS (12 sets, daily range): BP systolic 91–107; BP diastolic 62–80; PULSE 94–107; RESP 16–18; TEMP 96–98; O2SAT 93–100
[2016-11-16] MEDS: GENTAMICIN INJ 40 MG in SODIUM CHLORIDE 0.9% INJ 100 ML IV SCH ×4 (01:13→23:09)
[2016-11-16] MEDS: PENICILLIN G POTASSIUM INJ 3,000,000 UNITS in SODIUM CHLORIDE 0.9% INJ 100 ML IV SCH ×6 (01:13→21:10)
[2016-11-16] MEDS: PANTOPRAZOLE SODIUM 40 MG VIAL IV PUSH SCH (01:18)
[2016-11-16] MEDS: ALBUMIN HUMAN 25% 25 GM/100 ML BAGP IV SCH (03:23)
[2016-11-16] MEDS: RESP: ALBUTEROL 2.5 MG/IPRATROPIUM 0.5 MG NEB (SCH) NEB ×2 (04:57→09:34)
[2016-11-16] MEDS: levETIRAcetam INJ 500 MG in SODIUM CHLORIDE 0.9% INJ 100 ML IV SCH ×2 (05:45→18:19)
[2016-11-16] MEDS: CHLORHEXIDINE 0.12% (ORAL KIT) 15 ML CUP MT SCH (08:00)
[2016-11-16] MEDS: SODIUM CHLORIDE 0.9% FLUSH 5 ML FLUSH FLUSH SCH ×2 (09:18→21:11)
[2016-11-16] MEDS: POTASSIUM CHLORIDE 10 MEQ CONTROLLED RELEASE TAB PO SCH (09:23)
[2016-11-16] MEDS: CARVEDILOL 3.125 MG TAB PO SCH ×2 (09:23→21:10)
[2016-11-16] MEDS: CITALOPRAM HYDROBROMIDE 40 MG TAB PO SCH (09:23)
[2016-11-16] MEDS: FUROSEMIDE 20 MG/2 ML VIAL IV PUSH SCH ×2 (09:23→21:11)
[2016-11-16] MEDS: RAMIPRIL 2.5 MG CAP PO SCH (09:24)
[2016-11-16] MEDS: SPIRONOLACTONE 25 MG TAB PO SCH ×2 (09:24→17:27)
[2016-11-16] MEDS: DOCUSATE SODIUM 100 MG CAP PO SCH ×2 (09:24→22:45)
[2016-11-16] MEDS: ASPIRIN 81 MG CHEW TAB PO SCH (09:24)
[2016-11-16] MEDS: FERROUS SULFATE 325 MG (65 MG ELEMENTAL IRON) TAB PO SCH ×2 (09:24→21:11)
[2016-11-16] MEDS: LACTOBACILLUS ACIDOPHILUS TAB PO SCH ×2 (09:24→21:10)
[2016-11-16] MEDS: ACETAMINOPHEN/HYDROcodone 325 MG/5 MG TAB PO PRN ×2 (09:29→18:20)
--- NOTE | 2016-11-16 10:13 | HHI.FPPN ---
Subjective Remarks Patient seen this morning. No acute events. Did have some low BPs overnight ( MAP in the 70s). BP medicines were held. She has 2L O2 requirement, but sating 98-100%. Has UOP of 1.2L over the past 24hours. Ms. Barrios c/o some mild chest pressure/discomfort today. Slightly improved compared to yesterday, but still present. She has no other complaints this AM. Swelling subjectively improved. Has mild, non-productive cough that is improving. No F/C or N/V. Denies any new numbness or weakness in the extremities. No vision changes. (Freddie Aguilar MD R3) Objective Vitals Vital Signs Date Time Temp Pulse Resp B/P Pulse Ox O2 Delivery O2 Flow Rate FiO2 11/16/16 09:37 100 Nasal Cannula 2.00 11/16/16 08:00 96.0 103 18 106/80 97 11/16/16 05:01 99 Nasal Cannula 2.00 11/16/16 04:00 98.0 99 18 100/71 99 11/16/16 00:00 97.3 97 16 107/74 100 11/15/16 21:58 98 Nasal Cannula 2.00 11/15/16 20:00 97.6 101 18 99/67 99 11/15/16 20:00 Nasal Cannula 3.00 11/15/16 20:00 108 11/15/16 16:00 98.1 109 18 96/58 96 11/15/16 12:00 97.9 95 18 98/60 100 I/O 11/15/16 11/15/16 11/15/16 11/16/16 11/16/16 11/16/16 07:00 15:00 23:00 07:00 15:00 23:00 Intake Total 650 ml 240 ml 673 ml 820 ml Output Total 350 ml 800 ml 400 ml Balance 300 ml 240 ml -127 ml 420 ml Intake Oral 420 ml 240 ml 120 ml 120 ml IV Total 230 ml 553 ml 700 ml Output Urine Total 350 ml 800 ml 400 ml Stool Total 0 ml # Bowel Movements 1 0 1 (Freddie Aguilar MD R3) Result Diagram: 11/15/1645 11/15/1645 Objective Remarks GENERAL: female laying in bed on nasal canula in no distress. Carter with ~ 50 cc dark urine. SKIN: Warm and dry. R subclavian central line with no surrounding erythema. HEENT: AT/NC. Pupils equal and round. Mild scleral icterus. MMM. HEART: RRR with 3/6 LARRY heard throughout. LUNGS: non-labored breathing. Faint rales at lung bases bilaterally. No other adventitious sounds. ABDOMEN: Soft, NT, ND. EXTREMITIES: No cyanosis or clubbing. Trace edema in the upper and lower extremities, improved compared to previous exam. NEURO: Follows commands. Political Advisor right hand and wiggles all toes. Able to lift right upper and lower extremities against resistance. Some upper and lower extremity movement against gravity on the left. Left hand in contracture. 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 Blood cultures growing Strep viridans. Critical care consulted, now signed off. nfectious disease managing antibiotic coverage. Cardiology and CT surgery consulted; patient not a candidate for a second valve replacement since she already has both MV and AV replaced in September and there is a question of current drug use. Patient had a new-onset seizure with respiratory failure on and was subsequently intubated. MRI showing mass with surrounding hemorrhage of left frontal lobe which worsened slightly on follow up. Neurology and neurosurgery consulted. Palliative care now on board, as well. Family currently wishes to continue aggressive care. CT scan 11/13 shows enlarging left frontal lobe hematoma. She is now s/p extubation 11/13. Moved from ICU to med-surg floor 11/15. Discharge Planning Plan for DC to rehab. Improving clinically with diuresis, may be ready for rehab from medicine perspective in next 3-5 days. Will discuss with case management. Palliative care assisting with goals of care. Needs long-term antibiotic therapy for suspected endocarditis. Will discuss length of therapy with ID. Will discuss with Dr. Zayas (Freddie Aguilar MD R3) Attending Attestation Patient examined and case discussed with resident physicians I have read the above note and agree with the assessment/plan is discussed with me I was involved in all medical decision making for this patient Charbel Zayas M.D. (Charbel Zayas MD) Problem List: (1) Septic shock Status: Acute Plan: Improving. Suspect related to strep viridans endocarditis. - 2D echo suggestive of AV vegetation - Line and blood cultures 11/07 growing Strep viridans, sensitive to Pen G - Repeat blood cultures on 11/09 show no growth - ID managing antibiotics * Continue PCN (11/09-) * Gentamycin (11/15-) for synergy - ID and critical care managing patient. Appreciate their expertise (2) Endocarditis Status: Acute Plan: Blood cultures growing strep viridans, as above. She has recent history of aortic and mitral valve replacement. -cards and cards surgery have evaluated. Not a candidate for repeat cardiac surgery. -see above for management of septic shock (3) Streptococcus viridans infection Status: Acute Plan: See above for management of septic shock (4) CHF exacerbation Status: Acute Plan: Patient presented initially with ARF, likely related to fluid overload. Now s/p extubation 11/13. Respiratory status continues to improve, still has 2L NC O2 requirement. Does c/o mild chest pressure this AM that is improving. Only trace extremity edema on exam today. -low BPs overnight. Continue home ramipril and carvedilol with hold parameters ( hold for BP <100/60). -spironolactone decreased to 25mg PO BID and lasix to 20mg IV BID. Will change lasix to PO today. -serum albumin WNL yesterday. Will DC IV albumin at this point if CXR normal. -PRN duoneb for SOB -add incentive spirometry and acapella -faint rales on exam today. Check repeat CXR (last done 11/10). -wean O2, as tolerated -1.5L fluid restriction with 2g sodium restriction (5) Cerebrovascular accident, embolic Status: Acute Plan: New frontal septic embolus. MRI showing widespread bilateral infarcts and focal intra-axial mass with surrounding hemorrhage of the left frontal lobe. CT 11/13 showed left enlarging frontal lobe hematoma. -INR 1.5 yesterday. Continue to follow coags. Warfarin on hold 2/2 intracranial bleeding. -Neurosurgery consulted. Rashad for sz ppx. No resection indicated at this point. Underlying brain fiber tracts likely still viable. Follow up CT brain next week. Keep perfusion pressure >65. -Speech will do swallow eval today -PT/OT. Likely dipso to rehab. History: - MRA showing abrupt decrease in flow at M2 branches of right MCA (6) Seizure Status: Acute Plan: Continue seizure ppx, as above. (7) Thrombocytopenia Status: Acute Plan: Resolved. Platelets up to 190 yesterday. Follow daily CBC. (8) Hepatitis C Status: Chronic Plan: Chronic issue. Monitor LFTs. (9) Dietary counseling and surveillance Status: Acute Plan: Diet: heart healthy with nectar thick fluids. Speech to see today. 1.5L fluid and 2g sodium restriction. Fluids: SLIV DVT ppx: SCDs. Does some rolling with PT, but unlikely she will be able to do OOB with assistance. Chemical ppx contraindicated 2/2 intracranial bleed. AM labs: CBC, CMP, and coags this AM (Freddie Aguilar MD R3) Problem Qualifiers (1) Endocarditis: Qualified Code: I33.0 - Acute bacterial endocarditis (2) CHF exacerbation: Qualified Code: I50.23 - Acute on chronic systolic congestive heart failure (3) Hepatitis C: Qualified Code: B18.2 - Chronic hepatitis C without hepatic coma Freddie Aguilar MD R3 Nov 16, 2016 10:13 Charbel Zayas MD Nov 16, 2016 13:02
--- NOTE | 2016-11-16 11:27 | RADRPT ---
EXAM DATE/TIME: 11/16/2016 10:42 [facility] COMPARISON: CHEST SINGLE AP, November 10, 2016, 3:53. INDICATIONS: Chest pain. MEDICAL HISTORY: Stroke. Cardiovascular disease. Cerebrovascular disease. SURGICAL HISTORY: Heart valve. ENCOUNTER: Subsequent ACUITY: 3 days PAIN SCORE: 1/10 LOCATION: Chest FINDINGS: Central line is in good position. Valvular prosthesis is evident. Heart is enlarged. Mild intersti tial edema is present. Consolidative changes are present in the left base. CONCLUSION: Overall improvement with less interstitial edema. There is better aeration. Bennie Yanez MD FACR on November 16, 2016 at 11:21 Board Certified Radiologist. This report was verified electronically.
--- NOTE | 2016-11-16 12:14 | HHI.IDPN ---
Subjective Subjective Remarks Notes reviewed Temps ok Not SOB, on nasal O2 CXR better BC with viridans Strep Last (+) BC 11/07, BC 11/09 negative Echo with AV vegetation Not surgical candidate for redo valve Antibiotics PCN Gentamicin Lines Central line Past Medical History Hospitalization from October to December 2015 for infective endocarditis and subsequent complication Hospitalization June 22 to July 23 for CHF and cervical discitis She's had CVA with subarachnoid hemorrhage, embolic lesions to the brain lungs and spleen as a result of her endocarditis Known IV drug use, patient states last time she used was prior to her hospitalization in August 2016 Bilateral sacroiliitis CVA with residual left-sided hemiplegia Past Surgical History Surgery on her discitis last July 09, 2016 AVR, MVR with tissue valve September 07, 2016 Allergies: Coded Allergies: *MDRO Multi-Drug Resistant Organism (Verified Adverse Reaction, Unknown, ) MRSA PCR screen POSITIVE- 10/18/2015 & 08/12/16 MRSA (urine, blood, 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 Vital Signs Date Time Temp Pulse Resp B/P Pulse Ox O2 Delivery O2 Flow Rate FiO2 11/16/16 09:37 100 Nasal Cannula 2.00 11/16/16 08:00 96.0 103 18 106/80 97 11/16/16 07:15 Nasal Cannula 2.00 11/16/16 05:01 99 Nasal Cannula 2.00 11/16/16 04:00 98.0 99 18 100/71 99 11/16/16 00:00 97.3 97 16 107/74 100 11/15/16 21:58 98 Nasal Cannula 2.00 11/15/16 20:00 97.6 101 18 99/67 99 11/15/16 20:00 Nasal Cannula 3.00 11/15/16 20:00 108 11/15/16 16:00 98.1 109 18 96/58 96 11/15/16 11/15/16 11/16/16 15:00 23:00 07:00 Intake Total 240 ml 673 ml 820 ml Output Total 800 ml 400 ml Balance 240 ml -127 ml 420 ml Intake Oral 240 ml 120 ml 120 ml IV Total 553 ml 700 ml Output Urine Total 800 ml 400 ml # Bowel Movements 1 0 1 . Laboratory Tests Test 11/15/16 09:45 White Blood Count 11.0 TH/MM3 Red Blood Count 3.93 MIL/MM3 Hemoglobin 11.5 GM/DL Hematocrit 37.0 % Mean Corpuscular Volume 94.0 FL Mean Corpuscular Hemoglobin 29.3 PG Mean Corpuscular Hemoglobin 31.2 % Concent Red Cell Distribution Width 20.9 % Platelet Count 190 TH/MM3 Mean Platelet Volume 8.9 FL Neutrophils (%) (Auto) 72.0 % Lymphocytes (%) (Auto) 18.7 % Monocytes (%) (Auto) 7.7 % Eosinophils (%) (Auto) 0.7 % Basophils (%) (Auto) 0.9 % Neutrophils # (Auto) 7.9 TH/MM3 Lymphocytes # (Auto) 2.1 TH/MM3 Monocytes # (Auto) 0.8 TH/MM3 Eosinophils # (Auto) 0.1 TH/MM3 Basophils # (Auto) 0.1 TH/MM3 CBC Comment DIFF FINAL Differential Comment Laboratory Tests Test 11/14/16 11/15/16 14:37 09:45 Sodium Level 139 MEQ/L 139 MEQ/L Potassium Level 6.0 MEQ/L 4.4 MEQ/L Chloride Level 106 MEQ/L 105 MEQ/L Carbon Dioxide Level 26.7 MEQ/L 25.3 MEQ/L Anion Gap 6 MEQ/L 9 MEQ/L Blood Urea Nitrogen 14 MG/DL 16 MG/DL Creatinine 0.80 MG/DL 0.62 MG/DL Estimat Glomerular Filtration 86 ML/MIN 115 ML/MIN Rate Random Glucose 151 MG/DL 151 MG/DL Calcium Level 9.1 MG/DL 9.1 MG/DL Total Protein 8.4 GM/DL 7.3 GM/DL Total Bilirubin 6.3 MG/DL Aspartate Amino Transf 29 U/L (AST/SGOT) Alanine Aminotransferase 32 U/L (ALT/SGPT) Alkaline Phosphatase 82 U/L Albumin 4.5 GM/DL Imaging Chest X-Ray 11/08/16 0600 Signed Impressions: Service Date/Time: October 02:25 - CONCLUSION: Persistent bibasilar effusions with associated airspace disease. No interval change. Milan Aguilar MD Lower Extremity Ultrasound 11/07/16 0000 Signed Impressions: Service Date/Time: Monday, November 07, 2016 09:33 - CONCLUSION: No DVT of the left lower extremity. Nonspecific subcutaneous edema. Mookie Scales MD Physical Exam GENERAL: awake and alert, comfortable on nasal O2 SKIN: Cool and moist. No generalized rash, no ecchymosis, no peripheral embolic lesions seen HEENT: Fisk conjunctivae, no petechia or hemorrhage. No scleral icterus. Moist oral mucosa. No oral thrush NECK: Supple, nontender, no meningeal signs. CARDIOVASCULAR: Regular rate and rhythm. There is a systolic murmur heard on the whole left precordium and base of the heart. No pericardial rub heard. RESPIRATORY: Coarse breath sounds bilaterally. Decreased breath sounds at the bases. GASTROINTESTINAL: Abdomen soft, non-tender, nondistended. Bowel sounds are present and normoactive. No organomegaly. No guarding. MUSCULOSKELETAL: Extremities without clubbing, cyanosis, warm and well perfused. No calf tenderness. Negative Homans sign bilaterally. NEUROLOGICAL: Awake and alert. L hemiparesis, has good movement in her LLE, and about 3/5 in her LUE PSYCH: Cooperative : Carter cath in place, urine looks clear LINE: no evidence of infection Assessment & Plan Remarks IMPRESSION Respiratory failure, resolved - due to CHF - tolerating extubation AV IE PVE, C/S Strep viridans New hemorrhagic CVA S/P AVR and MVR for severe AI and MR due to IE Episode of IE last year with complications Known IVDU Diarrhea RECOMMENDATION Continue IV PCN Continue Gentamicin, follow creat Monitor progress Will need long course of IV Abx, possibly chronic oral suppression Kenia Parson MD Nov 16, 2016 12:14
[2016-11-16 13:46] LABS: AUTOMATED NEUTROPHIL # 7.9 TH/MM3 (1.8-7.7); BASOPHIL # 0.1 TH/MM3 (0-0.2); BASOPHIL % 0.8 % (0.0-2.0); EOSINOPHIL % 0.3 % (0.0-4.0); HEMATOCRIT 33.6 % (35.0-46.0); HEMO FLAGS DIFF FINAL; LYMPH % 21.1 % (9.0-44.0); LYMPHOCYTE # 2.3 TH/MM3 (1.0-4.8); MEAN CELL VOLUME 94.1 FL (80.0-100.0); MEAN CORPUSCULAR HEMOGLOBIN 29.4 PG (27.0-34.0); MEAN CORPUSCULAR HGB CONC 31.2 % (32.0-36.0); MONO % 6.5 % (0.0-8.0); NEUT % 71.3 % (16.0-70.0); PLATELET COUNT 223 TH/MM3 (150-450); RED BLOOD COUNT 3.58 MIL/MM3 (4.00-5.30); RED CELL DISTRIBUTION WIDTH 20.9 % (11.6-17.2)
[2016-11-16 13:56] LABS: APTT (PATIENT) 30.6 SEC (24.3-30.1); INTERNATIONAL NORMALIZED RATIO 1.7 RATIO; PROTHROMBIN TIME - PATIENT 18.9 SEC (9.8-11.6)
[2016-11-16 14:12] LABS: ALT (GPT) 30 U/L (10-53); ANION GAP 10 MEQ/L (5-15); AST (GOT) 27 U/L (15-37); BICARBONATE 22.8 MEQ/L (21.0-32.0); BLOOD UREA NITROGEN 18 MG/DL (7-18); CHLORIDE 106 MEQ/L (98-107); GLOMERULAR FILTRATION RATE 90 ML/MIN (>89); POTASSIUM 4.9 MEQ/L (3.5-5.1); SODIUM (NA) 139 MEQ/L (136-145)
[2016-11-16 14:14] LABS: ALKALINE PHOSPHATASE 86 U/L (45-117); TOTAL BILIRUBIN ADULT 4.3 MG/DL (0.2-1.0)
--- NOTE | 2016-11-16 14:30 | HHI.FPPN ---
Addendum to progress note ADDENDUM Reason for addendum: Additonal documentation Additional information Discussed re-starting anticoagulation on patient with neurosurgery (Dr. Craig) . Recommended repeat head CT. Re-assess risk-benefit ratio of anticoagulation after study back. Urgent Head CT ordered for today. Freddie Aguilar MD R3 Nov 16, 2016 14:30
--- NOTE | 2016-11-16 16:01 | RADRPT ---
EXAM DATE/TIME: 11/16/2016 15:37 [facility] COMPARISON: CT BRAIN W/O CONTRAST, November 13, 2016, 3:58. INDICATIONS: Follow up intracerebral hemorrhage. RADIATION DOSE: 56.35 CTDIvol (mGy) MEDICAL HISTORY: Cerebrovascular disease. Cardiovascular disease SURGICAL HISTORY: None. ENCOUNTER: Subsequent ACUITY: 1 week PAIN SCALE: 0/10 LOCATION: Cranial TECHNIQUE: Multiple contiguous axial images were obtained of the head. Using automated exposure control and adj ustment of the mA and/or kV according to patient size, radiation dose was kept as low as reasonably a chievable to obtain optimal diagnostic quality images. FINDINGS: There is an evolving intracranial hemorrhage in the left orbital frontal region measuring 2.8 cm with localized mass effect. Old infarcts are seen in the Sylvian region and right parietal occipital reg ion. Posterior fossa is unremarkable. CONCLUSION: Evolving parenchymal hemorrhage left orbital frontal region as described above, slightly smaller in t he interval. Bennie Yanez MD FACR on November 16, 2016 at 15:52 Board Certified Radiologist. This report was verified electronically.
[2016-11-16] MEDS ORDERED: PHARMACY ORDERED LAB XX ONE (23:45)
[2016-11-17] MEDS: PENICILLIN G POTASSIUM INJ 3,000,000 UNITS in SODIUM CHLORIDE 0.9% INJ 100 ML IV SCH ×6 (01:21→20:32)
[2016-11-17 04:00] VITALS: BP 102/64; PULSE 94; RESP 16; TEMP 97.9; O2SAT 99
[2016-11-17] MEDS: levETIRAcetam INJ 500 MG in SODIUM CHLORIDE 0.9% INJ 100 ML IV SCH ×2 (04:41→16:02)
[2016-11-17 08:00] VITALS: BP 104/74; PULSE 95; RESP 20; TEMP 98; O2SAT 99
[2016-11-17] MEDS: CARVEDILOL 3.125 MG TAB PO SCH ×2 (08:10→20:31)
[2016-11-17] MEDS: CITALOPRAM HYDROBROMIDE 40 MG TAB PO SCH (08:10)
[2016-11-17] MEDS: POTASSIUM CHLORIDE 10 MEQ CONTROLLED RELEASE TAB PO SCH (08:11)
[2016-11-17] MEDS: RAMIPRIL 2.5 MG CAP PO SCH (08:11)
[2016-11-17] MEDS: SPIRONOLACTONE 25 MG TAB PO SCH ×2 (08:11→17:08)
[2016-11-17] MEDS: FUROSEMIDE 20 MG/2 ML VIAL IV PUSH SCH (08:11)
[2016-11-17] MEDS: LACTOBACILLUS ACIDOPHILUS TAB PO SCH ×2 (08:11→20:31)
[2016-11-17] MEDS: ASPIRIN 81 MG CHEW TAB PO SCH (08:11)
[2016-11-17] MEDS: FERROUS SULFATE 325 MG (65 MG ELEMENTAL IRON) TAB PO SCH ×2 (08:11→20:31)
[2016-11-17] MEDS: GENTAMICIN INJ 40 MG in SODIUM CHLORIDE 0.9% INJ 100 ML IV SCH (08:12)
[2016-11-17] MEDS: SODIUM CHLORIDE 0.9% FLUSH 5 ML FLUSH FLUSH SCH ×2 (08:12→20:31)
[2016-11-17] MEDS: ACETAMINOPHEN/HYDROcodone 325 MG/5 MG TAB PO PRN ×3 (08:18→23:52)
[2016-11-17 08:30] VITALS: PULSE 101
[2016-11-17 09:02] LABS: AUTOMATED NEUTROPHIL # 8.5 TH/MM3 (1.8-7.7); BASOPHIL # 0.1 TH/MM3 (0-0.2); BASOPHIL % 0.6 % (0.0-2.0); EOSINOPHIL # 0.1 TH/MM3 (0-0.4); EOSINOPHIL % 1.1 % (0.0-4.0); HEMATOCRIT 36.2 % (35.0-46.0); HEMO FLAGS DIFF FINAL; LYMPH % 27.7 % (9.0-44.0); LYMPHOCYTE # 3.7 TH/MM3 (1.0-4.8); MEAN CELL VOLUME 94.8 FL (80.0-100.0); MEAN CORPUSCULAR HEMOGLOBIN 29.8 PG (27.0-34.0); MEAN CORPUSCULAR HGB CONC 31.5 % (32.0-36.0); MONO % 7.6 % (0.0-8.0); PLATELET COUNT 267 TH/MM3 (150-450); RED BLOOD COUNT 3.82 MIL/MM3 (4.00-5.30); RED CELL DISTRIBUTION WIDTH 21.7 % (11.6-17.2); WHITE BLOOD COUNT 13.5 TH/MM3 (4.0-11.0)
--- NOTE | 2016-11-17 10:26 | HHI.FPPN ---
Subjective Remarks Ms. Barrios was afebrile with stable vital signs overnight. Patient reports that she has persistent chest pain but that it is improved from previously. Patient reports improvement in her shortness of breath. Patient denies significant lower extremity swelling. Patient denies abdominal pain. Patient has catheter in place. Patient requests restarting her prior sleep medication Nursing staff, present at bedside changing central line dressing, reports no concerns at this time. Objective Vitals Vital Signs Date Time Temp Pulse Resp B/P Pulse Ox O2 Delivery O2 Flow Rate FiO2 11/17/16 04:00 97.9 94 16 102/64 99 11/16/16 22:07 97.8 94 16 98/67 100 11/16/16 20:55 Nasal Cannula 3.00 11/16/16 20:17 107 11/16/16 20:09 97.6 96 16 100/62 97 11/16/16 19:42 93 21 11/16/16 16:00 97.7 101 18 91/67 93 11/16/16 12:00 97.0 100 18 95/67 94 I/O 11/16/16 11/16/16 11/16/16 11/17/16 11/17/16 11/17/16 07:00 15:00 23:00 07:00 15:00 23:00 Intake Total 820 ml 352 ml 642 ml 412 ml Output Total 400 ml 600 ml 150 ml Balance 420 ml 352 ml 42 ml 262 ml Intake Oral 120 ml 240 ml 0 ml IV Total 700 ml 352 ml 402 ml 412 ml Output Urine Total 400 ml 600 ml 150 ml # Bowel Movements 1 0 0 Result Diagram: 11/17/16 0843 11/16/16 1320 Imaging Last Impressions Head CT 11/16/16 1423 Signed Impressions: Service Date/Time: Wednesday, November 16, 2016 15:37 - CONCLUSION: Evolving parenchymal hemorrhage left orbital frontal region as described above, slightly smaller in the interval. Bennie Yanez MD FACR Chest X-Ray 11/16/16 0000 Signed Impressions: Service Date/Time: Wednesday, November 16, 2016 10:42 - CONCLUSION: Overall improvement with less interstitial edema. There is better aeration. Bennie Yanez MD FACR Head Magnetic Resonance Angiography 11/10/16 0000 Signed Impressions: Service Date/Time: Thursday, November 10, 2016 09:18 - CONCLUSION: Abrupt decrease in flow at the M2 branches of the right middle cerebral artery. Mokoie Razo MD Brain MRI 11/09/16 0000 Signed Impressions: Service Date/Time: Wednesday, November 09, 2016 20:28 - CONCLUSION: 1. Widespread bilateral infarcts as above, several weeks in age or older. 2. Focal intra- axial mass with surrounding hemorrhage of the left frontal lobe. The lesion itself appears to be fairly small, probably about 15 mm in size. The hemorrhage is about 3.4 cm. Mookie Scales MD Lower Extremity Ultrasound 11/07/16 0000 Signed Impressions: Service Date/Time: Monday, November 07, 2016 09:33 - CONCLUSION: No DVT of the left lower extremity. Nonspecific subcutaneous edema. Mookie Scales MD Objective Remarks GENERAL: female laying in bed in no distress. SKIN: Warm and dry. R subclavian central line with no surrounding erythema. HEENT: AT/NC. Pupils equal and round. Mild scleral icterus. MMM. HEART: RRR with 3/6 LARRY heard throughout. LUNGS: non-labored breathing. Faint rales at lung bases bilaterally. No other adventitious sounds. ABDOMEN: Soft, NT, ND. : Carter in place EXTREMITIES: No cyanosis or clubbing. No visible edema on this exam. NEURO: Follows commands. [employer] right hand and wiggles all toes. Able to lift right upper and lower extremities against resistance. Some upper and lower extremity movement against gravity on the left. Left hand in contracture. A/P Assessment and Plan 26 year old female with history of IVDU complicated by endocarditis s/ p mitral and aortic tissue valve replacement in September, severe CHF with EF ~25% , and CVA with left-sided hemiparesis was admitted on 11/06 for respiratory failure, severe sepsis, fluid overload, and recurrent endocarditis. Blood cultures growing Strep viridans. Critical care consulted, now signed off. nfectious disease managing antibiotic coverage. Cardiology and CT surgery consulted; patient not a candidate for a second valve replacement since she already has both MV and AV replaced in September and there is a question of current drug use. Patient had a new-onset seizure with respiratory failure on and was subsequently intubated. MRI showing mass with surrounding hemorrhage of left frontal lobe which worsened slightly on follow up. Neurology and neurosurgery consulted. Palliative care now on board, as well. Family currently wishes to continue aggressive care. CT scan 11/13 shows enlarging left frontal lobe hematoma. She is now s/p extubation 11/13. Moved from ICU to med-surg floor 11/15. Discharge Planning Plan for DC to rehab. Improving clinically with diuresis, may be ready for rehab from medicine perspective in next 3-5 days. Will discuss with case management. Palliative care assisting with goals of care. Needs long-term antibiotic therapy for suspected endocarditis. Will discuss length of therapy with ID. Will discuss with Dr. Zayas Problem List: (1) Septic shock Status: Acute Plan: Improving. Suspect related to strep viridans endocarditis. - 2D echo suggestive of AV vegetation - Line and blood cultures 11/07 growing Strep viridans, sensitive to Pen G - Repeat blood cultures on 11/09 show no growth - ID managing antibiotics * Continue PCN (11/09-) * Gentamycin (11/15-) for synergy - ID and critical care managing patient. Appreciate their expertise (2) Endocarditis Status: Acute Plan: Blood cultures growing strep viridans, as above. She has recent history of aortic and mitral valve replacement. -cards and cards surgery have evaluated. Not a candidate for repeat cardiac surgery. -see above for management of septic shock (3) Streptococcus viridans infection Status: Acute Plan: See above for management of septic shock (4) CHF exacerbation Status: Acute Plan: Patient presented initially with ARF, likely related to fluid overload. Now s/p extubation 11/13. Respiratory status continues to improve, still has 2L NC O2 requirement. Does c/o mild chest pressure this AM that is improving. Only trace extremity edema on exam today. -Continue home ramipril and carvedilol with hold parameters (hold for BP <100/60 ). -Continue Spironolactone 25mg PO BID -Will change lasix from IV to 20mg PO BID -If concern for volume overload, will restart IV lasix PRN -Will repeat CXR tomorrow morning -serum albumin WNL yesterday. Will DC IV albumin at this point if CXR normal. -PRN duoneb for SOB -add incentive spirometry and acapella -faint rales on exam today. Check repeat CXR (last done 11/10). -wean O2, as tolerated -1.5L fluid restriction with 2g sodium restriction (5) Cerebrovascular accident, embolic Status: Acute Plan: -Continue to follow coags. Warfarin on hold 2/2 intracranial bleeding. -INR: 1.7 (11/16), 1.5 (11/15) -Neurosurgery consulted: Rashad for sz ppx. -OT/PT -Keep perfusion pressure >65 -Continue 81 mg ASA -Low dose Lovenox added -Plan to rescan in 4 weeks or sooner if clinically indicated History: Head CT 11/16- Evolving parenchymal hemorrhage L orbital frontal region as described above CT 11/13 showed left enlarging frontal lobe hematoma. New R parietal hemorrhage MRA 11/10 showing abrupt decrease in flow at M2 branches of right MCA MRI 11/09 showing widespread bilateral infarcts and focal intra-axial mass with surrounding hemorrhage of the left frontal lobe (6) Seizure Status: Acute Plan: Continue seizure ppx, as above. (7) Thrombocytopenia Status: Acute Plan: Resolved. Continue to monitor CBC (8) Hepatitis C Status: Chronic Plan: Chronic issue. Monitor LFTs. (9) Dietary counseling and surveillance Status: Acute Plan: Diet: heart healthy with thin liquids per speech. 1.5L fluid and 2g sodium restriction. Fluids: SLIV DVT ppx: SCDs. Does some rolling with PT, but unlikely she will be able to do OOB with assistance. Low dose Lovenox restarted Problem Qualifiers (1) Endocarditis: Qualified Code: I33.0 - Acute bacterial endocarditis (2) CHF exacerbation: Qualified Code: I50.23 - Acute on chronic systolic congestive heart failure (3) Hepatitis C: Qualified Code: B18.2 - Chronic hepatitis C without hepatic coma Tam Garcia MD R2 Nov 17, 2016 10:26
[2016-11-17] MEDS: ENOXAPARIN SODIUM 40 MG/0.4 ML SYRINGE SQ SCH (11:12)
[2016-11-17] MEDS: DOCUSATE SODIUM 100 MG CAP PO SCH ×2 (11:12→20:30)
--- NOTE | 2016-11-17 11:35 | HHI.NSPN ---
History Chief Complaint: left frontal hemorrhagic infarct Interval History 26 yr old with recurrent septic emboli to the brain, this time to the left frontal lobe. She presented with sepsis. She was still intubated and on dobutamine but is weaning from the versed. She opens her eyes and is purposeful with the right hand, GCS [id number] = 10T. 11/13/16 She had a repeat head CT which showed a worsening of the hyperintensity on the left frontal lobe. Clinically she remains under heavy fentanyl and versed sedation but arouses to voice and follows commands with her right side. GCS is [id number] = 10T 11/14/16 She is off the fentanyl, extubated, talking and denies pain. She is able to follow complex commands with her right hand. 11/15/16 She is tired but interactive and follows commands on the right. She passed her swallow evaluation yesterday. 11/17/16 She is alert and following commands, cooperative with care Review of Systems Respiratory: Negative for: shortness of breath, cough, sputum Gastrointestinal: Negative for: nausea, vomitting, diarrhea, constipation Exam Results Vital Signs Date Time Temp Pulse Resp B/P Pulse Ox O2 Delivery O2 Flow Rate FiO2 11/17/16 08:30 Room Air 11/17/16 08:30 101 11/17/16 08:00 98.0 20 104/74 99 11/16/16 20:55 3.00 11/16/16 19:42 21 Intake and Output 11/16/16 11/16/16 11/17/16 08:00 16:00 00:00 Intake Total 820 ml 352 ml 642 ml Output Total 400 ml 600 ml Balance 420 ml 352 ml 42 ml Physical Examination Awake, interactive, pupils equal, reactive, 5mm, but the reaction is slow, speech appropriate Spasticity, old on the left side including left Gordon Left sided weakness or neglect, old but able to grasp now with the left hand Purposeful with the right upper and lower extremity, withdraws the left lower extremity and is able to push with the left foot Abd soft, obese, RRR, skin warm and dry, no rashes, right great toe dark embolus noted. Carter still in place, central line intact. Lab, Micro, Other Results Laboratory Tests Test 11/16/16 11/16/16 11/17/16 13:20 23:10 08:43 White Blood Count 11.0 TH/MM3 13.5 TH/MM3 Red Blood Count 3.58 MIL/MM3 3.82 MIL/MM3 Hemoglobin 10.5 GM/DL 11.4 GM/DL Hematocrit 33.6 % 36.2 % Mean Corpuscular Volume 94.1 FL 94.8 FL Mean Corpuscular Hemoglobin 29.4 PG 29.8 PG Mean Corpuscular Hemoglobin 31.2 % 31.5 % Concent Red Cell Distribution Width 20.9 % 21.7 % Platelet Count 223 TH/MM3 267 TH/MM3 Mean Platelet Volume 9.1 FL 9.7 FL Neutrophils (%) (Auto) 71.3 % 63.0 % Lymphocytes (%) (Auto) 21.1 % 27.7 % Monocytes (%) (Auto) 6.5 % 7.6 % Eosinophils (%) (Auto) 0.3 % 1.1 % Basophils (%) (Auto) 0.8 % 0.6 % Neutrophils # (Auto) 7.9 TH/MM3 8.5 TH/MM3 Lymphocytes # (Auto) 2.3 TH/MM3 3.7 TH/MM3 Monocytes # (Auto) 0.7 TH/MM3 1.0 TH/MM3 Eosinophils # (Auto) 0.0 TH/MM3 0.1 TH/MM3 Basophils # (Auto) 0.1 TH/MM3 0.1 TH/MM3 CBC Comment DIFF FINAL DIFF FINAL Differential Comment Prothrombin Time 18.9 SEC Prothromb Time International 1.7 RATIO Ratio Activated Partial 30.6 SEC Thromboplast Time Sodium Level 139 MEQ/L Potassium Level 4.9 MEQ/L Chloride Level 106 MEQ/L Carbon Dioxide Level 22.8 MEQ/L Anion Gap 10 MEQ/L Blood Urea Nitrogen 18 MG/DL Creatinine 0.77 MG/DL Estimat Glomerular Filtration 90 ML/MIN Rate Random Glucose 161 MG/DL Calcium Level 9.0 MG/DL Total Bilirubin 4.3 MG/DL Aspartate Amino Transf 27 U/L (AST/SGOT) Alanine Aminotransferase 30 U/L (ALT/SGPT) Alkaline Phosphatase 86 U/L Total Protein 7.5 GM/DL Albumin 4.6 GM/DL Gentamicin Level Trough 1.9 MCG/ML Medical Decision Making Impression and Plan New left frontal septic embolus with associated hemorrhage, and minimal mass effect, will follow. She is stable hemodynamically and neurologically at this time. 11/13/16 Increased hyperintensity in the left frontal lobe including increased edema in the left operculum from which arises the motor speech function. The mass effect remains small for the size of the lesion. Resection is not needed as the underlying brain fiber tracts are likely to still be viable but we should maintain perfusion pressures > 65 and correct coagulopathy if it is still present. Repeat electrolytes and coagulation profile was requested. A family meeting is planned this am to discuss the goals of care. 11/14/16 Very resilient now extubated and able to be tested by speech rx. Swallow evaluation is pending. Follow up CT of the brain planned next week or sooner if needed clinically. Seizure prophylaxis continued. 11/15/16 On a regular diet, resume OT/PT, continue Keppra. 11/17/[address] showed evolving 2.8 cm left frontal hemorrhagic infarction. She is on 81 mg ASA and low dose Lovenox was added. Eliquis is on hold until the blood has resolved on CT. Follow up imaging is planned in 4 weeks or sooner if clinical changes are evident. Total Minutes: 10 Jaswant Craig Nov 17, 2016 11:35
[2016-11-17 12:00] VITALS: BP 99/63; PULSE 97; RESP 20; TEMP 97.9; O2SAT 97
[2016-11-17 12:21] LABS: BICARBONATE 20.6 MEQ/L (21.0-32.0); POTASSIUM 5.2 MEQ/L (3.5-5.1)
--- NOTE | 2016-11-17 15:33 | HHI.IDPN ---
Subjective Subjective Remarks Notes reviewed Clinically doing well from ID standpoit Temps ok Not SOB, on nasal O2 No tinnitus Creatinine ok, though slightly up BC with viridans Strep Last (+) BC 11/07, BC 11/09 negative Echo with AV vegetation Not surgical candidate for redo valve Antibiotics PCN Gentamicin Lines Central line Past Medical History Hospitalization from October to December 2015 for infective endocarditis and subsequent complication Hospitalization June 22 to July 23 for CHF and cervical discitis She's had CVA with subarachnoid hemorrhage, embolic lesions to the brain lungs and spleen as a result of her endocarditis Known IV drug use, patient states last time she used was prior to her hospitalization in August 2016 Bilateral sacroiliitis CVA with residual left-sided hemiplegia Past Surgical History Surgery on her discitis last July 09, 2016 AVR, MVR with tissue valve September 07, 2016 Allergies: Coded Allergies: *MDRO Multi-Drug Resistant Organism (Verified Adverse Reaction, Unknown, ) MRSA PCR screen POSITIVE- 10/18/2015 & 08/12/16 MRSA (urine, blood, 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 Vital Signs Date Time Temp Pulse Resp B/P Pulse Ox O2 Delivery O2 Flow Rate FiO2 11/17/16 12:00 97.9 97 20 99/63 97 11/17/16 08:30 Room Air 11/17/16 08:30 101 11/17/16 08:00 98.0 95 20 104/74 99 11/17/16 04:00 97.9 94 16 102/64 99 11/16/16 22:07 97.8 94 16 98/67 100 11/16/16 20:55 Nasal Cannula 3.00 11/16/16 20:17 107 11/16/16 20:09 97.6 96 16 100/62 97 11/16/16 19:42 93 21 11/16/16 16:00 97.7 101 18 91/67 93 11/16/16 11/16/16 11/17/16 15:00 23:00 07:00 Intake Total 352 ml 642 ml 412 ml Output Total 600 ml 150 ml Balance 352 ml 42 ml 262 ml Intake Oral 240 ml 0 ml IV Total 352 ml 402 ml 412 ml Output Urine Total 600 ml 150 ml # Bowel Movements 0 0 . Laboratory Tests Test 11/16/16 11/17/16 13:20 08:43 White Blood Count 11.0 TH/MM3 13.5 TH/MM3 Red Blood Count 3.58 MIL/MM3 3.82 MIL/MM3 Hemoglobin 10.5 GM/DL 11.4 GM/DL Hematocrit 33.6 % 36.2 % Mean Corpuscular Volume 94.1 FL 94.8 FL Mean Corpuscular Hemoglobin 29.4 PG 29.8 PG Mean Corpuscular Hemoglobin 31.2 % 31.5 % Concent Red Cell Distribution Width 20.9 % 21.7 % Platelet Count 223 TH/MM3 267 TH/MM3 Mean Platelet Volume 9.1 FL 9.7 FL Neutrophils (%) (Auto) 71.3 % 63.0 % Lymphocytes (%) (Auto) 21.1 % 27.7 % Monocytes (%) (Auto) 6.5 % 7.6 % Eosinophils (%) (Auto) 0.3 % 1.1 % Basophils (%) (Auto) 0.8 % 0.6 % Neutrophils # (Auto) 7.9 TH/MM3 8.5 TH/MM3 Lymphocytes # (Auto) 2.3 TH/MM3 3.7 TH/MM3 Monocytes # (Auto) 0.7 TH/MM3 1.0 TH/MM3 Eosinophils # (Auto) 0.0 TH/MM3 0.1 TH/MM3 Basophils # (Auto) 0.1 TH/MM3 0.1 TH/MM3 CBC Comment DIFF FINAL DIFF FINAL Differential Comment Laboratory Tests Test 11/16/16 11/17/16 13:20 10:57 Sodium Level 139 MEQ/L 138 MEQ/L Potassium Level 4.9 MEQ/L 5.2 MEQ/L Chloride Level 106 MEQ/L 107 MEQ/L Carbon Dioxide Level 22.8 MEQ/L 20.6 MEQ/L Anion Gap 10 MEQ/L 10 MEQ/L Blood Urea Nitrogen 18 MG/DL 23 MG/DL Creatinine 0.77 MG/DL 0.86 MG/DL Estimat Glomerular Filtration 90 ML/MIN 79 ML/MIN Rate Random Glucose 161 MG/DL 123 MG/DL Calcium Level 9.0 MG/DL 9.2 MG/DL Total Bilirubin 4.3 MG/DL Aspartate Amino Transf 27 U/L (AST/SGOT) Alanine Aminotransferase 30 U/L (ALT/SGPT) Alkaline Phosphatase 86 U/L Total Protein 7.5 GM/DL Albumin 4.6 GM/DL Imaging Chest X-Ray 11/08/16 0600 Signed Impressions: Service Date/Time: October 02:25 - CONCLUSION: Persistent bibasilar effusions with associated airspace disease. No interval change. Milan Aguilar MD Lower Extremity Ultrasound 11/07/16 0000 Signed Impressions: Service Date/Time: Monday, November 07, 2016 09:33 - CONCLUSION: No DVT of the left lower extremity. Nonspecific subcutaneous edema. Mookie Scales MD Physical Exam GENERAL: awake and alert, comfortable on nasal O2 SKIN: Cool and moist. No generalized rash HEENT: [place] conjunctivae, no petechia or hemorrhage. No scleral icterus. Moist oral mucosa. No oral thrush NECK: Supple, nontender, no meningeal signs. CARDIOVASCULAR: Regular rate and rhythm. There is a systolic murmur heard on the whole left precordium and base of the heart. No pericardial rub heard. RESPIRATORY: Coarse breath sounds bilaterally. Decreased breath sounds at the bases. GASTROINTESTINAL: Abdomen soft, non-tender, nondistended. Bowel sounds are present and normoactive. No organomegaly. No guarding. MUSCULOSKELETAL: Extremities without clubbing, cyanosis, warm and well perfused. No calf tenderness. Negative Homans sign bilaterally. NEUROLOGICAL: Awake and alert. 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
[2016-11-17] MEDS: RESP: ALBUTEROL 2.5 MG/IPRATROPIUM 0.5 MG NEB (PRN) NEB ×2 (15:35→23:55)
[2016-11-17 16:00] VITALS: BP 91/64; PULSE 106; RESP 20; TEMP 97.2; O2SAT 100
[2016-11-17] MEDS: FUROSEMIDE 20 MG TAB PO SCH (17:08)
[2016-11-17 20:00] VITALS: BP 102/80; PULSE 99; RESP 18; TEMP 97.5; O2SAT 98
[2016-11-17] MEDS: TEMAZEPAM 7.5 MG CAP PO PRN (20:31)
[2016-11-17] MEDS: PANTOPRAZOLE SODIUM 40 MG VIAL IV PUSH SCH ×2 (23:52)
[2016-11-18] VITALS (9 sets, daily range): BP systolic 96–101; BP diastolic 54–73; PULSE 91–101; RESP 16–18; TEMP 97.3–98; O2SAT 94–99
[2016-11-18] MEDS: PENICILLIN G POTASSIUM INJ 3,000,000 UNITS in SODIUM CHLORIDE 0.9% INJ 100 ML IV SCH ×6 (01:11→20:58)
[2016-11-18] MEDS: levETIRAcetam INJ 500 MG in SODIUM CHLORIDE 0.9% INJ 100 ML IV SCH ×2 (04:58→17:20)
[2016-11-18 05:29] LABS: AUTOMATED NEUTROPHIL # 7.2 TH/MM3 (1.8-7.7); BASOPHIL # 0.1 TH/MM3 (0-0.2); BASOPHIL % 0.9 % (0.0-2.0); EOSINOPHIL # 0.1 TH/MM3 (0-0.4); HEMATOCRIT 32.6 % (35.0-46.0); HEMO FLAGS DIFF FINAL; LYMPH % 24.1 % (9.0-44.0); LYMPHOCYTE # 2.6 TH/MM3 (1.0-4.8); MEAN CELL VOLUME 94.1 FL (80.0-100.0); MEAN CORPUSCULAR HEMOGLOBIN 30.1 PG (27.0-34.0); MONO % 7.6 % (0.0-8.0); NEUT % 66.4 % (16.0-70.0); PLATELET COUNT 265 TH/MM3 (150-450); RED BLOOD COUNT 3.46 MIL/MM3 (4.00-5.30); RED CELL DISTRIBUTION WIDTH 21.5 % (11.6-17.2); WHITE BLOOD COUNT 10.9 TH/MM3 (4.0-11.0)
[2016-11-18 06:02] LABS: APTT (PATIENT) 33.1 SEC (24.3-30.1); INTERNATIONAL NORMALIZED RATIO 1.8 RATIO; PROTHROMBIN TIME - PATIENT 20.4 SEC (9.8-11.6)
[2016-11-18 06:27] LABS: ALT (GPT) 30 U/L (10-53); ANION GAP 12 MEQ/L (5-15); AST (GOT) 23 U/L (15-37); BICARBONATE 20.6 MEQ/L (21.0-32.0); BLOOD UREA NITROGEN 24 MG/DL (7-18); CHLORIDE 106 MEQ/L (98-107); GLOMERULAR FILTRATION RATE 115 ML/MIN (>89); POTASSIUM 4.6 MEQ/L (3.5-5.1); SODIUM (NA) 139 MEQ/L (136-145)
[2016-11-18 07:00] LABS: ALKALINE PHOSPHATASE 90 U/L (45-117); RANDOM GENTAMICIN 0.7 MCG/ML; TOTAL BILIRUBIN ADULT 3.4 MG/DL (0.2-1.0)
[2016-11-18] MEDS: ACETAMINOPHEN/HYDROcodone 325 MG/5 MG TAB PO PRN ×3 (07:22→23:09)
[2016-11-18] MEDS: CITALOPRAM HYDROBROMIDE 40 MG TAB PO SCH (07:33)
[2016-11-18] MEDS: FUROSEMIDE 20 MG TAB PO SCH ×2 (07:33→17:21)
[2016-11-18] MEDS: LACTOBACILLUS ACIDOPHILUS TAB PO SCH ×2 (07:34→20:58)
[2016-11-18] MEDS: FERROUS SULFATE 325 MG (65 MG ELEMENTAL IRON) TAB PO SCH ×2 (07:34→20:58)
[2016-11-18] MEDS: RAMIPRIL 2.5 MG CAP PO SCH (07:34)
[2016-11-18] MEDS: CARVEDILOL 3.125 MG TAB PO SCH ×2 (07:34→20:59)
[2016-11-18] MEDS: SPIRONOLACTONE 25 MG TAB PO SCH ×2 (07:34→17:21)
[2016-11-18] MEDS: ASPIRIN 81 MG CHEW TAB PO SCH (07:34)
[2016-11-18] MEDS: SODIUM CHLORIDE 0.9% FLUSH 5 ML FLUSH FLUSH SCH ×2 (07:35→20:59)
--- NOTE | 2016-11-18 07:55 | HHI.FPPN ---
Subjective Remarks Ms. Barrios was afebrile with stable signs overnight. Ms. Barrios does not report any problems this morning. Patient continues to have mild chest pain which she states is improved. Patient does not report shortness of breath. Patient denies any bowel abnormalities. Patient reports that she is comfortable watching TV. Objective Vitals Vital Signs Date Time Temp Pulse Resp B/P Pulse Ox O2 Delivery O2 Flow Rate FiO2 11/18/16 04:00 97.4 94 18 98/69 96 11/18/16 02:21 98 11/18/16 00:53 18 11/18/16 00:03 97 21 11/18/16 00:00 97.9 101 18 101/69 98 11/17/16 20:30 Room Air 11/17/16 20:00 97.5 99 18 102/80 98 11/17/16 16:00 97.2 106 20 91/64 100 11/17/16 12:00 97.9 97 20 99/63 97 11/17/16 08:30 Room Air 11/17/16 08:30 101 11/17/16 08:00 98.0 95 20 104/74 99 I/O 11/17/16 11/17/16 11/17/16 11/18/16 11/18/16 11/18/16 07:00 15:00 23:00 07:00 15:00 23:00 Intake Total 412 ml 880 ml 240 ml 100 ml Output Total 150 ml 825 ml 175 ml 300 ml Balance 262 ml 55 ml 65 ml -200 ml Intake Oral 0 ml 480 ml 240 ml 100 ml IV Total 412 ml 400 ml Output Urine Total 150 ml 825 ml 175 ml 300 ml # Bowel Movements 0 4 0 0 Result Diagram: 11/18/16 0500 11/18/16 0500 Imaging Last Impressions Chest X-Ray 11/18/16 0000 Signed Impressions: Service Date/Time: Friday, November 18, 2016 07:54 - CONCLUSION: Cardiomegaly with bilateral pulmonary edema slightly more prominent. Abram Reyes MD Head CT 11/16/16 1423 Signed Impressions: Service Date/Time: Wednesday, November 16, 2016 15:37 - CONCLUSION: Evolving parenchymal hemorrhage left orbital frontal region as described above, slightly smaller in the interval. Bennie Yanez MD FACR Head Magnetic Resonance Angiography 11/10/16 0000 Signed Impressions: Service Date/Time: Thursday, November 10, 2016 09:18 - CONCLUSION: Abrupt decrease in flow at the M2 branches of the right middle cerebral artery. Mookie Razo MD Brain MRI 11/09/16 0000 Signed Impressions: Service Date/Time: Wednesday, November 09, 2016 20:28 - CONCLUSION: 1. Widespread bilateral infarcts as above, several weeks in age or older. 2. Focal intra- axial mass with surrounding hemorrhage of the left frontal lobe. The lesion itself appears to be fairly small, probably about 15 mm in size. The hemorrhage is about 3.4 cm. Mookie Scales MD Lower Extremity Ultrasound 11/07/16 0000 Signed Impressions: Service Date/Time: Monday, November 07, 2016 09:33 - CONCLUSION: No DVT of the left lower extremity. Nonspecific subcutaneous edema. Mookie Scales MD Objective Remarks GENERAL: female laying in bed in no distress. SKIN: Warm and dry. R subclavian central line with no surrounding erythema. HEENT: AT/NC. Pupils equal and round. Mild scleral icterus. MMM. HEART: RRR with 3/6 LARRY heard throughout; normal peripheral perfusion in bilateral lower extremities LUNGS: non-labored breathing. Faint rales at lung bases bilaterally. No other adventitious sounds. ABDOMEN: Soft, NT, ND. : Carter in place EXTREMITIES: No cyanosis or clubbing. No edema in lower extremities. NEURO: Follows commands. 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 Able to lift right upper and lower extremities against resistance. Some upper and lower extremity movement against gravity on the left. Left hand with flexed fingers; cannot extend much A/P Assessment and Plan 26 year old female with history of IVDU complicated by endocarditis s/ p mitral and aortic tissue valve replacement in September, severe CHF with EF ~25% , and CVA with left-sided hemiparesis was admitted on 11/06 for respiratory failure, severe sepsis, fluid overload, and recurrent endocarditis. Blood cultures growing Strep viridans. Critical care consulted, now signed off. nfectious disease managing antibiotic coverage. Cardiology and CT surgery consulted; patient not a candidate for a second valve replacement since she already has both MV and AV replaced in September and there is a question of current drug use. Patient had a new-onset seizure with respiratory failure on and was subsequently intubated. MRI showing mass with surrounding hemorrhage of left frontal lobe which worsened slightly on follow up. Neurology and neurosurgery consulted. Palliative care now on board, as well. Family currently wishes to continue aggressive care. CT scan 11/13 shows enlarging left frontal lobe hematoma. She is now s/p extubation 11/13. Moved from ICU to med-surg floor 11/15. Discharge Planning Plan for DC to rehab. Improving clinically with diuresis, may be ready for rehab from medicine perspective in next 3-5 days. Will discuss with case management. Palliative care assisting with goals of care. Needs long-term antibiotic therapy for suspected endocarditis. Will discuss length of therapy with ID. Will discuss with Dr. Zayas Problem List: (1) Septic shock Status: Resolved Plan: Improving. Suspect related to strep viridans endocarditis. - 2D echo suggestive of AV vegetation - Repeat blood cultures on 11/09 show no growth - ID managing antibiotics * Continue PCN (11/09-) * Gentamycin (11/15-) for synergy - ID and critical care managing patient. Appreciate their expertise Cultures: 11/09 Blood- Negative x5 days 11/07 Blood (Linex2 and Peripheralx2)- Strep Viridans; resistant to Erythromycin (2) Endocarditis Status: Acute Plan: Blood cultures growing strep viridans, as above. She has recent history of aortic and mitral valve replacement. -cards and cards surgery have evaluated. Not a candidate for repeat cardiac surgery. -see above for management of septic shock (3) Streptococcus viridans infection Status: Acute Plan: See above for management of septic shock (4) CHF exacerbation Status: Acute Plan: 11/18- Repeat CXR obtained- mildly increased pulmonary edema. Doing well on room air -Continue home ramipril and carvedilol with hold parameters (hold for BP <100/60 ). -Continue Spironolactone 25mg PO BID -Will increase Lasix 20mg PO BID to 30mg PO BID -Will give Lasix 10mg IV x1 -Will restart oral potassium supplementation at 10mg -PRN duoneb for SOB -add incentive spirometry and acapella -faint rales on exam today. Check repeat CXR (last done 11/10). -1.5L fluid restriction with 2g sodium restriction Impression: Patient presented initially with ARF, likely related to fluid overload. Now s/p extubation 11/13. Respiratory status continues to improve, still has 2L NC O2 requirement. Does c/o mild chest pressure this AM that is improving. Only trace extremity edema on exam today. -serum albumin WNL as of 11/16; IV albumin discontinued (5) Cerebrovascular accident, embolic Status: Acute Plan: -Continue to follow coags. Warfarin on hold 2/2 intracranial bleeding. -INR: 1.8 (11/18), 1.7 (11/16) -Neurosurgery consulted: Rashad for sz ppx. -OT/PT -Keep perfusion pressure >65 -Continue 81 mg ASA -Low dose Lovenox added -Plan to rescan in 4 weeks or sooner if clinically indicated History: Head CT 11/16- Evolving parenchymal hemorrhage L orbital frontal region as described above CT 11/13 showed left enlarging frontal lobe hematoma. New R parietal hemorrhage MRA 11/10 showing abrupt decrease in flow at M2 branches of right MCA MRI 11/09 showing widespread bilateral infarcts and focal intra-axial mass with surrounding hemorrhage of the left frontal lobe (6) Seizure Status: Acute Plan: Continue seizure ppx, as above. (7) Thrombocytopenia Status: Acute Plan: Resolved. Continue to monitor CBC (8) Hepatitis C Status: Chronic Plan: Chronic issue. Monitor LFTs. (9) Dietary counseling and surveillance Status: Acute Plan: Diet: heart healthy with thin liquids per speech. 1.5L fluid and 2g sodium restriction. Fluids: SLIV DVT ppx: SCDs. Does some rolling with PT, but unlikely she will be able to do OOB with assistance. Low dose Lovenox restarted Problem Qualifiers (1) Endocarditis: Qualified Code: I33.0 - Acute bacterial endocarditis (2) CHF exacerbation: Qualified Code: I50.23 - Acute on chronic systolic congestive heart failure (3) Hepatitis C: Qualified Code: B18.2 - Chronic hepatitis C without hepatic coma Tam Garcia MD R2 Nov 18, 2016 07:55
--- NOTE | 2016-11-18 08:23 | RADRPT ---
EXAM DATE/TIME: 11/18/2016 07:54 [facility] COMPARISON: CHEST SINGLE AP, November 16, 2016, 10:42. INDICATIONS : Congestive heart failure MEDICAL HISTORY : Stroke. Cardiovascular disease Cerebrovascular disease. SURGICAL HISTORY : Heart valve. ENCOUNTER: Subsequent ACUITY: 4 - 6 days PAIN SCORE: 0/10 LOCATION: chest FINDINGS: A single view of the chest demonstrates cardiomegaly with bilateral perihilar edema. Previous median sternotomy and heart valve replacement. Right subclavian central line stable position.. The cardiome diastinal contours are unremarkable. Osseous structures are intact. CONCLUSION: Cardiomegaly with bilateral pulmonary edema slightly more prominent. Abram Reyes MD on November 18, 2016 at 8:21 Board Certified Radiologist. This report was verified electronically.
[2016-11-18] MEDS: ENOXAPARIN SODIUM 40 MG/0.4 ML SYRINGE SQ SCH (10:00)
[2016-11-18] MEDS: DOCUSATE SODIUM 100 MG CAP PO SCH ×2 (10:00→20:58)
[2016-11-18] MEDS ORDERED: PILL SPLITTER OTHER PRN (10:45)
[2016-11-18] MEDS ORDERED: FUROSEMIDE 20 MG/2 ML VIAL IV PUSH ONE (10:45)
[2016-11-18] MEDS: POTASSIUM CHLORIDE 10 MEQ CONTROLLED RELEASE TAB PO SCH (11:05)
--- NOTE | 2016-11-18 11:26 | HHI.IDPN ---
Subjective Subjective Remarks Notes reviewed Temps ok Not SOB, on nasal O2 No tinnitus Creatinine ok BC with viridans Strep Last (+) BC 11/07, BC 11/09 negative Echo with AV vegetation Not surgical candidate for redo valve Antibiotics PCN Gentamicin Lines Central line Past Medical History Hospitalization from October to December 2015 for infective endocarditis and subsequent complication Hospitalization June 22 to July 23 for CHF and cervical discitis She's had CVA with subarachnoid hemorrhage, embolic lesions to the brain lungs and spleen as a result of her endocarditis Known IV drug use, patient states last time she used was prior to her hospitalization in August 2016 Bilateral sacroiliitis CVA with residual left-sided hemiplegia Past Surgical History Surgery on her discitis last July 09, 2016 AVR, MVR with tissue valve September 07, 2016 Allergies: Coded Allergies: *MDRO Multi-Drug Resistant Organism (Verified Adverse Reaction, Unknown, ) MRSA PCR screen POSITIVE- 10/18/2015 & 08/12/16 MRSA (urine, blood, 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 Vital Signs Date Time Temp Pulse Resp B/P Pulse Ox O2 Delivery O2 Flow Rate FiO2 11/18/16 10:32 98 11/18/16 08:30 Room Air 11/18/16 08:00 97.8 101 16 101/66 99 Automatic Cuff 11/18/16 04:00 97.4 94 18 98/69 96 11/18/16 02:21 98 11/18/16 00:53 18 11/18/16 00:03 97 21 11/18/16 00:00 97.9 101 18 101/69 98 11/17/16 20:30 Room Air 11/17/16 20:00 97.5 99 18 102/80 98 11/17/16 16:00 97.2 106 20 91/64 100 11/17/16 12:00 97.9 97 20 99/63 97 11/17/16 11/17/16 11/18/16 15:00 23:00 07:00 Intake Total 880 ml 240 ml 100 ml Output Total 825 ml 175 ml 300 ml Balance 55 ml 65 ml -200 ml Intake Oral 480 ml 240 ml 100 ml IV Total 400 ml Output Urine Total 825 ml 175 ml 300 ml # Bowel Movements 4 0 0 . Laboratory Tests Test 11/16/16 11/17/1617 13:20 08:43 05:00 White Blood Count 11.0 TH/MM3 13.5 TH/MM3 10.9 TH/MM3 Red Blood Count 3.58 MIL/MM3 3.82 MIL/MM3 3.46 MIL/MM3 Hemoglobin 10.5 GM/DL 11.4 GM/DL 10.4 GM/DL Hematocrit 33.6 % 36.2 % 32.6 % Mean Corpuscular Volume 94.1 FL 94.8 FL 94.1 FL Mean Corpuscular Hemoglobin 29.4 PG 29.8 PG 30.1 PG Mean Corpuscular Hemoglobin 31.2 % 31.5 % 32.0 % Concent Red Cell Distribution Width 20.9 % 21.7 % 21.5 % Platelet Count 223 TH/MM3 267 TH/MM3 265 TH/MM3 Mean Platelet Volume 9.1 FL 9.7 FL 9.0 FL Neutrophils (%) (Auto) 71.3 % 63.0 % 66.4 % Lymphocytes (%) (Auto) 21.1 % 27.7 % 24.1 % Monocytes (%) (Auto) 6.5 % 7.6 % 7.6 % Eosinophils (%) (Auto) 0.3 % 1.1 % 1.0 % Basophils (%) (Auto) 0.8 % 0.6 % 0.9 % Neutrophils # (Auto) 7.9 TH/MM3 8.5 TH/MM3 7.2 TH/MM3 Lymphocytes # (Auto) 2.3 TH/MM3 3.7 TH/MM3 2.6 TH/MM3 Monocytes # (Auto) 0.7 TH/MM3 1.0 TH/MM3 0.8 TH/MM3 Eosinophils # (Auto) 0.0 TH/MM3 0.1 TH/MM3 0.1 TH/MM3 Basophils # (Auto) 0.1 TH/MM3 0.1 TH/MM3 0.1 TH/MM3 CBC Comment DIFF FINAL DIFF FINAL DIFF FINAL Differential Comment Laboratory Tests Test 11/16/16 11/17/16 11/18/16 13:20 10:57 05:00 Sodium Level 139 MEQ/L 138 MEQ/L 139 MEQ/L Potassium Level 4.9 MEQ/L 5.2 MEQ/L 4.6 MEQ/L Chloride Level 106 MEQ/L 107 MEQ/L 106 MEQ/L Carbon Dioxide Level 22.8 MEQ/L 20.6 MEQ/L 20.6 MEQ/L Anion Gap 10 MEQ/L 10 MEQ/L 12 MEQ/L Blood Urea Nitrogen 18 MG/DL 23 MG/DL 24 MG/DL Creatinine 0.77 MG/DL 0.86 MG/DL 0.62 MG/DL Estimat Glomerular Filtration 90 ML/MIN 79 ML/MIN 115 ML/MIN Rate Random Glucose 161 MG/DL 123 MG/DL 98 MG/DL Calcium Level 9.0 MG/DL 9.2 MG/DL 9.3 MG/DL Total Bilirubin 4.3 MG/DL 3.4 MG/DL Aspartate Amino Transf 27 U/L 23 U/L (AST/SGOT) Alanine Aminotransferase 30 U/L 30 U/L (ALT/SGPT) Alkaline Phosphatase 86 U/L 90 U/L Total Protein 7.5 GM/DL 7.5 GM/DL Albumin 4.6 GM/DL 4.1 GM/DL Imaging Chest X-Ray 11/08/16 0600 Signed Impressions: Service Date/Time: October 02:25 - CONCLUSION: Persistent bibasilar effusions with associated airspace disease. No interval change. Milan Aguilar MD Lower Extremity Ultrasound 11/07/16 0000 Signed Impressions: Service Date/Time: Monday, November 07, 2016 09:33 - CONCLUSION: No DVT of the left lower extremity. Nonspecific subcutaneous edema. Mookie Scales MD Physical Exam GENERAL: awake and alert, comfortable on nasal O2 SKIN: Cool and moist. No generalized rash HEENT: [place] conjunctivae, no petechia or hemorrhage. No scleral icterus. Moist oral mucosa. No oral thrush NECK: Supple, nontender, no meningeal signs. CARDIOVASCULAR: Regular rate and rhythm. There is a systolic murmur heard on the whole left precordium and base of the heart. No pericardial rub heard. RESPIRATORY: Coarse breath sounds bilaterally. Decreased breath sounds at the bases. GASTROINTESTINAL: Abdomen soft, non-tender, nondistended. Bowel sounds are present and normoactive. No organomegaly. No guarding. MUSCULOSKELETAL: Extremities without clubbing, cyanosis, warm and well perfused. No calf tenderness. Negative Homans sign bilaterally. NEUROLOGICAL: Awake and alert. L hemiparesis, has good movement in her LLE, and about 3/5 in her LUE PSYCH: Cooperative : Carter cath in place, urine looks clear LINE: no evidence of infection Assessment & Plan Remarks IMPRESSION Respiratory failure, resolved - due to CHF - tolerating extubation AV IE PVE, C/S Strep viridans New hemorrhagic CVA S/P AVR and MVR for severe AI and MR due to IE Episode of IE last year with complications Known IVDU Diarrhea RECOMMENDATION Continue IV PCN Continue Gentamicin, follow creat closely - give at least 2 weeks Monitor progress PICC Remove line once PICC in place Kenia Parson MD Nov 18, 2016 11:26
--- NOTE | 2016-11-18 14:57 | RADRPT ---
EXAM DATE/TIME: 11/18/2016 14:28 [facility] COMPARISON: CHEST SINGLE AP, November 18, 2016, 7:54. INDICATIONS : PICC line placement. MEDICAL HISTORY : Stroke. Cardiovascular disease. Cerebrovascular disease. SURGICAL HISTORY : Heart valve. ENCOUNTER: Initial ACUITY: 1 day PAIN SCORE: 0/10 LOCATION: Bilateral chest FINDINGS: A single AP portable erect view of the chest was obtained and demonstrates interval placement right-s ided PICC line with the tip projected over the superior vena cava. There is no pneumothorax. The righ t subclavian central venous line remains in place. The patient is again noted to be status post media n sternotomy. There is an artificial heart valve in place. The heart size remains mildly prominent. T here is hazy perihilar and bibasilar opacities remaining. The left costophrenic angle remains blunted and the left hemidiaphragm remains obscured. CONCLUSION: 1. Interval placement of right-sided PICC line. 2. Hazy opacity remains in the perihilar regions and both lung bases which appears mildly improved. T his may represent mild pulmonary edema. 3. Probable small left effusion. Bertin Segura MD on November 18, 2016 at 14:51 Board Certified Radiologist. This report was verified electronically.
[2016-11-18] MEDS: GENTAMICIN INJ 40 MG in SODIUM CHLORIDE 0.9% INJ 100 ML IV SCH ×2 (15:58→23:07)
[2016-11-18] MEDS: RESP: ALBUTEROL 2.5 MG/IPRATROPIUM 0.5 MG NEB (PRN) NEB (19:30)
[2016-11-18] MEDS: TEMAZEPAM 7.5 MG CAP PO PRN (20:58)
[2016-11-18] MEDS: PANTOPRAZOLE SODIUM 40 MG VIAL IV PUSH SCH (23:13)
[2016-11-19] VITALS (9 sets, daily range): BP systolic 95–105; BP diastolic 59–74; PULSE 86–112; RESP 18–20; TEMP 97.4–98.7; O2SAT 96–100
[2016-11-19] MEDS: PENICILLIN G POTASSIUM INJ 3,000,000 UNITS in SODIUM CHLORIDE 0.9% INJ 100 ML IV SCH ×6 (01:14→23:01)
[2016-11-19] MEDS: levETIRAcetam INJ 500 MG in SODIUM CHLORIDE 0.9% INJ 100 ML IV SCH ×2 (05:07→18:09)
[2016-11-19 05:49] LABS: AUTOMATED NEUTROPHIL # 8.8 TH/MM3 (1.8-7.7); BASOPHIL # 0.2 TH/MM3 (0-0.2); BASOPHIL % 1.3 % (0.0-2.0); EOSINOPHIL # 0.1 TH/MM3 (0-0.4); HEMATOCRIT 32.7 % (35.0-46.0); HEMO FLAGS DIFF FINAL; LYMPH % 22.1 % (9.0-44.0); LYMPHOCYTE # 2.8 TH/MM3 (1.0-4.8); MEAN CELL VOLUME 95.2 FL (80.0-100.0); MEAN CORPUSCULAR HEMOGLOBIN 30.3 PG (27.0-34.0); MEAN CORPUSCULAR HGB CONC 31.9 % (32.0-36.0); MONO % 6.4 % (0.0-8.0); NEUT % 69.2 % (16.0-70.0); PLATELET COUNT 285 TH/MM3 (150-450); RED BLOOD COUNT 3.44 MIL/MM3 (4.00-5.30); RED CELL DISTRIBUTION WIDTH 22.5 % (11.6-17.2); WHITE BLOOD COUNT 12.7 TH/MM3 (4.0-11.0)
[2016-11-19 06:09] LABS: ANION GAP 12 MEQ/L (5-15); AST (GOT) 27 U/L (15-37); BICARBONATE 20.8 MEQ/L (21.0-32.0); BLOOD UREA NITROGEN 24 MG/DL (7-18); CHLORIDE 104 MEQ/L (98-107); GLOMERULAR FILTRATION RATE 87 ML/MIN (>89); POTASSIUM 4.6 MEQ/L (3.5-5.1); SODIUM (NA) 137 MEQ/L (136-145)
[2016-11-19 06:14] LABS: ALKALINE PHOSPHATASE 102 U/L (45-117); ALT (GPT) 29 U/L (10-53)
[2016-11-19 06:33] LABS: INTERNATIONAL NORMALIZED RATIO 1.6 RATIO; PROTHROMBIN TIME - PATIENT 18.6 SEC (9.8-11.6)
[2016-11-19] MEDS: SODIUM CHLORIDE 0.9% FLUSH 5 ML FLUSH FLUSH SCH ×2 (08:46→23:01)
[2016-11-19] MEDS: LACTOBACILLUS ACIDOPHILUS TAB PO SCH ×2 (08:46→22:59)
[2016-11-19] MEDS: GENTAMICIN INJ 40 MG in SODIUM CHLORIDE 0.9% INJ 100 ML IV SCH ×2 (08:46→16:59)
[2016-11-19] MEDS: ACETAMINOPHEN/HYDROcodone 325 MG/5 MG TAB PO PRN ×2 (08:47→16:59)
[2016-11-19] MEDS: RAMIPRIL 2.5 MG CAP PO SCH (08:47)
[2016-11-19] MEDS: SPIRONOLACTONE 25 MG TAB PO SCH ×2 (08:48→17:06)
[2016-11-19] MEDS: CARVEDILOL 3.125 MG TAB PO SCH ×2 (08:48→21:00)
[2016-11-19] MEDS: CITALOPRAM HYDROBROMIDE 40 MG TAB PO SCH (08:48)
[2016-11-19] MEDS: FERROUS SULFATE 325 MG (65 MG ELEMENTAL IRON) TAB PO SCH ×2 (08:48→22:59)
[2016-11-19] MEDS: ASPIRIN 81 MG CHEW TAB PO SCH (08:48)
[2016-11-19] MEDS: FUROSEMIDE 20 MG TAB PO SCH ×2 (08:48→17:00)
[2016-11-19] MEDS: POTASSIUM CHLORIDE 10 MEQ CONTROLLED RELEASE TAB PO SCH (08:49)
[2016-11-19] MEDS: ENOXAPARIN SODIUM 40 MG/0.4 ML SYRINGE SQ SCH (10:10)
--- NOTE | 2016-11-19 10:12 | HHI.FPPN ---
Subjective Remarks Patient seen this morning. No acute events overnight. Some low BPs (MAP 60s) overnight. HR elevated up to the 100s this morning. Ms. Barrios has no complaints at this time. CP resolved and breathing better. She thinks swelling is much better compared to yesterday. She is tolerating a PO diet. Appetite improving. No N/V. Has been able to sit up with assistance, but not walking. Feels strength improving. Would like to work with PT. Denies any F/C. (Freddie Aguilar MD R3) Objective Vitals Vital Signs Date Time Temp Pulse Resp B/P Pulse Ox O2 Delivery O2 Flow Rate FiO2 11/19/16 08:00 98.1 107 20 101/72 98 11/19/16 04:00 97.4 99 18 105/74 96 11/19/16 00:31 94 11/19/16 00:04 18 11/19/16 00:00 98.7 86 18 95/74 96 11/18/16 20:50 94 Room Air 11/18/16 20:00 98.0 99 16 97/73 94 11/18/16 16:00 97.4 96 16 96/54 99 11/18/16 12:00 97.3 91 16 97/66 98 11/18/16 10:32 98 I/O 11/18/16 11/18/16 11/18/16 11/19/16 11/19/16 11/19/16 07:00 15:00 23:00 07:00 15:00 23:00 Intake Total 100 ml 320 ml 120 ml 730 ml Output Total 300 ml 1150 ml 2000 ml Balance -200 ml -830 ml 120 ml -1270 ml Intake Oral 100 ml 320 ml 120 ml 120 ml IV Total 610 ml Output Urine Total 300 ml 1150 ml 2000 ml # Voids 0 # Bowel Movements 0 0 0 0 (Freddie Aguilar MD R3) Result Diagram: 11/19/16 0515 11/19/16 0515 Objective Remarks GENERAL: female laying in bed in no distress. SKIN: Warm and dry. Now has FR anterior brachial PICC in place. HEENT: AT/NC. Pupils equal and round. Mild scleral icterus. MMM. HEART: RRR with 3/6 LARRY heard throughout; normal peripheral perfusion in bilateral lower extremities. LUNGS: non-labored breathing. CTAB. No adventitious sounds. ABDOMEN: Soft, NT, ND. : Carter in place with yellow urine. EXTREMITIES: No cyanosis or clubbing. No LE edema present. NEURO: Follows commands. Change Room Attendant right hand and wiggles all toes. Able to lift right upper and lower extremities against resistance. Some upper and lower extremity movement against gravity on the left. 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 Blood cultures growing Strep viridans. Critical care consulted, now signed off. nfectious disease managing antibiotic coverage. Cardiology and CT surgery consulted; patient not a candidate for a second valve replacement since she already has both MV and AV replaced in September and there is a question of current drug use. Patient had a new-onset seizure with respiratory failure on and was subsequently intubated. MRI showing mass with surrounding hemorrhage of left frontal lobe which worsened slightly on follow up. Neurology and neurosurgery consulted. Palliative care now on board, as well. Family currently wishes to continue aggressive care. She is now s/p extubation 11/13. Moved from ICU to med-surg floor 11/15. CT brain 11/16 shows mild improvement of left frontal hemorrhage. Discharge Planning Plan for DC to rehab. Improving clinically with diuresis, may be ready for rehab from medicine perspective in next 3-5 days. Will discuss with case management. Palliative care assisting with goals of care. Needs long-term antibiotic therapy for suspected endocarditis. Will discuss length of therapy with ID. Will discuss with Dr. Zayas (Freddie Aguilar MD R3) Attending Attestation Pt. examined and case discussed with resident physician I have read the above note and agree with the assessment/plan as discussed with me I was involved in all medical decision making for this patient Charbel Zayas MD (Charbel Zayas MD) Problem List: (1) Septic shock Status: Resolved Plan: Resolved. Suspect related to strep viridans endocarditis. - 2D echo suggestive of AV vegetation - Repeat blood cultures on 11/09 show no growth - ID managing antibiotics * Continue PCN (11/09-) * Gentamycin (11/15-) for synergy - ID and critical care managing patient. Appreciate their expertise Cultures: 11/09 Blood- Negative x5 days 11/07 Blood (Linex2 and Peripheralx2)- Strep Viridans; resistant to Erythromycin (2) Endocarditis Status: Acute Plan: Blood cultures growing strep viridans, as above. She has recent history of aortic and mitral valve replacement. -cards and cards surgery have evaluated. Not a candidate for repeat cardiac surgery. -see above for management of septic shock (3) Streptococcus viridans infection Status: Acute Plan: See above for management of septic shock (4) CHF exacerbation Status: Acute Plan: 11/18- Repeat CXR obtained- mildly increased pulmonary edema. No adventitious sounds on exam today. Doing well on room air. 3L UOP over the past 24 hours. Weight today is stable at 54.5 kg. Electrolytes WNL. -Continue home ramipril and carvedilol with hold parameters (hold for BP <100/60 ). -Continue Spironolactone 25mg PO BID and Lasix 30mg PO BID. IV lasix 10mg given x1 yesterday. Plan to slowly decrease dose over next several days. Monitor intake and output along with daily weights. -oral potassium supplementation at 10mg -PRN duoneb for SOB -incentive spirometry and acapella -1.5L fluid restriction with 2g sodium restriction (5) Cerebrovascular accident, embolic Status: Acute Plan: -Continue to follow coags. Warfarin on hold 2/2 intracranial bleeding. -INR 1.6 on 11/19 -Neurosurgery consulted: Rashad for sz ppx. -OT/PT -Keep perfusion pressure >65 -Continue 81 mg ASA -Low dose Lovenox added -Plan to rescan in 4 weeks or sooner if clinically indicated History: Head CT 11/16- Evolving parenchymal hemorrhage L orbital frontal region as described above CT 11/13 showed left enlarging frontal lobe hematoma. New R parietal hemorrhage MRA 11/10 showing abrupt decrease in flow at M2 branches of right MCA MRI 11/09 showing widespread bilateral infarcts and focal intra-axial mass with surrounding hemorrhage of the left frontal lobe (6) Seizure Status: Acute Plan: Continue seizure ppx, as above. (7) Hepatitis C Status: Chronic Plan: Chronic issue. Monitor LFTs. (8) Dietary counseling and surveillance Status: Acute Plan: Diet: heart healthy with thin liquids per speech. 1.5L fluid and 2g sodium restriction. Fluids: SLIV DVT ppx: SCDs. Does some rolling with PT, but unlikely she will be able to do OOB with assistance. Low dose Lovenox restarted (Freddie Aguilar MD R3) Problem Qualifiers (1) Endocarditis: Qualified Code: I33.0 - Acute bacterial endocarditis (2) CHF exacerbation: Qualified Code: I50.23 - Acute on chronic systolic congestive heart failure (3) Hepatitis C: Qualified Code: B18.2 - Chronic hepatitis C without hepatic coma Freddie Aguilar MD R3 Nov 19, 2016 10:12 Charbel Zayas MD Nov 19, 2016 18:08
[2016-11-19] MEDS: DOCUSATE SODIUM 100 MG CAP PO SCH ×2 (13:03→22:59)
[2016-11-19] MEDS: RESP: ALBUTEROL 2.5 MG/IPRATROPIUM 0.5 MG NEB (PRN) NEB (13:10)
--- NOTE | 2016-11-19 13:30 | HHI.IDPN ---
Subjective Subjective Remarks Notes reviewed Has PICC in place Temps ok Not SOB, on nasal O2 No tinnitus Creatinine ok BC with viridans Strep Last (+) BC 11/07, BC 11/09 negative Echo with AV vegetation Not surgical candidate for redo valve Antibiotics PCN Gentamicin Lines PICC - 11/18 Past Medical History Hospitalization from October to December 2015 for infective endocarditis and subsequent complication Hospitalization June 22 to July 23 for CHF and cervical discitis She's had CVA with subarachnoid hemorrhage, embolic lesions to the brain lungs and spleen as a result of her endocarditis Known IV drug use, patient states last time she used was prior to her hospitalization in August 2016 Bilateral sacroiliitis CVA with residual left-sided hemiplegia Past Surgical History Surgery on her discitis last July 09, 2016 AVR, MVR with tissue valve September 07, 2016 Allergies: Coded Allergies: *MDRO Multi-Drug Resistant Organism (Verified Adverse Reaction, Unknown, ) MRSA PCR screen POSITIVE- 10/18/2015 & 08/12/16 MRSA (urine, blood, 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 Vital Signs Date Time Temp Pulse Resp B/P Pulse Ox O2 Delivery O2 Flow Rate FiO2 11/19/16 08:00 Room Air 11/19/16 08:00 98.1 107 20 101/72 98 11/19/16 04:00 97.4 99 18 105/74 96 11/19/16 00:31 94 11/19/16 00:04 18 11/19/16 00:00 98.7 86 18 95/74 96 11/18/16 20:50 94 Room Air 11/18/16 20:00 98.0 99 16 97/73 94 11/18/16 16:00 97.4 96 16 96/54 99 11/18/16 11/18/16 11/19/16 15:00 23:00 07:00 Intake Total 320 ml 120 ml 730 ml Output Total 1150 ml 2000 ml Balance -830 ml 120 ml -1270 ml Intake Oral 320 ml 120 ml 120 ml IV Total 610 ml Output Urine Total 1150 ml 2000 ml # Voids 0 # Bowel Movements 0 0 0 . Laboratory Tests Test 11/18/16 11/19/16 05:00 05:15 White Blood Count 10.9 TH/MM3 12.7 TH/MM3 Red Blood Count 3.46 MIL/MM3 3.44 MIL/MM3 Hemoglobin 10.4 GM/DL 10.4 GM/DL Hematocrit 32.6 % 32.7 % Mean Corpuscular Volume 94.1 FL 95.2 FL Mean Corpuscular Hemoglobin 30.1 PG 30.3 PG Mean Corpuscular Hemoglobin 32.0 % 31.9 % Concent Red Cell Distribution Width 21.5 % 22.5 % Platelet Count 265 TH/MM3 285 TH/MM3 Mean Platelet Volume 9.0 FL 9.0 FL Neutrophils (%) (Auto) 66.4 % 69.2 % Lymphocytes (%) (Auto) 24.1 % 22.1 % Monocytes (%) (Auto) 7.6 % 6.4 % Eosinophils (%) (Auto) 1.0 % 1.0 % Basophils (%) (Auto) 0.9 % 1.3 % Neutrophils # (Auto) 7.2 TH/MM3 8.8 TH/MM3 Lymphocytes # (Auto) 2.6 TH/MM3 2.8 TH/MM3 Monocytes # (Auto) 0.8 TH/MM3 0.8 TH/MM3 Eosinophils # (Auto) 0.1 TH/MM3 0.1 TH/MM3 Basophils # (Auto) 0.1 TH/MM3 0.2 TH/MM3 CBC Comment DIFF FINAL DIFF FINAL Differential Comment Laboratory Tests Test 11/18/16 11/19/16 05:00 05:15 Sodium Level 139 MEQ/L 137 MEQ/L Potassium Level 4.6 MEQ/L 4.6 MEQ/L Chloride Level 106 MEQ/L 104 MEQ/L Carbon Dioxide Level 20.6 MEQ/L 20.8 MEQ/L Anion Gap 12 MEQ/L 12 MEQ/L Blood Urea Nitrogen 24 MG/DL 24 MG/DL Creatinine 0.62 MG/DL 0.79 MG/DL Estimat Glomerular Filtration 115 ML/MIN 87 ML/MIN Rate Random Glucose 98 MG/DL 88 MG/DL Calcium Level 9.3 MG/DL 9.2 MG/DL Total Bilirubin 3.4 MG/DL 3.0 MG/DL Aspartate Amino Transf 23 U/L 27 U/L (AST/SGOT) Alanine Aminotransferase 30 U/L 29 U/L (ALT/SGPT) Alkaline Phosphatase 90 U/L 102 U/L Total Protein 7.5 GM/DL 7.9 GM/DL Albumin 4.1 GM/DL 4.5 GM/DL Imaging Chest X-Ray 11/18/16 0000 Signed Impressions: Service Date/Time: Friday, November 18, 2016 14:28 - CONCLUSION: 1. Interval placement of right-sided PICC line. 2. Hazy opacity remains in the perihilar regions and both lung bases which appears mildly improved. This may represent mild pulmonary edema. 3. Probable small left effusion. Bertin Segura MD Chest X-Ray 11/18/16 0000 Signed Impressions: Service Date/Time: Friday, November 18, 2016 07:54 - CONCLUSION: Cardiomegaly with bilateral pulmonary edema slightly more prominent. Abram Reyes MD Head CT 11/16/16 1423 Signed Impressions: Service Date/Time: Wednesday, November 16, 2016 15:37 - CONCLUSION: Evolving parenchymal hemorrhage left orbital frontal region as described above, slightly smaller in the interval. Bennie Yanez MD FACR Chest X-Ray 11/08/16 0600 Signed Impressions: Service Date/Time: October 02:25 - CONCLUSION: Persistent bibasilar effusions with associated airspace disease. No interval change. Milan Aguilar MD Lower Extremity Ultrasound 11/07/16 0000 Signed Impressions: Service Date/Time: Monday, November 07, 2016 09:33 - CONCLUSION: No DVT of the left lower extremity. Nonspecific subcutaneous edema. Mookie Scales MD Physical Exam GENERAL: awake and alert, NAD SKIN: Cool and moist. No generalized rash HEENT: [place] conjunctivae, no petechia or hemorrhage. No scleral icterus. Moist oral mucosa. NECK: Supple, nontender, no meningeal signs. CARDIOVASCULAR: Regular rate and rhythm. There is a systolic murmur heard on the whole left precordium and base of the heart. No pericardial rub heard. RESPIRATORY: Coarse breath sounds bilaterally. Decreased breath sounds at the bases. GASTROINTESTINAL: Abdomen soft, non-tender, nondistended. Bowel sounds are present and normoactive. No organomegaly. No guarding. MUSCULOSKELETAL: Extremities without clubbing, cyanosis, warm and well perfused. No calf tenderness. Negative Homans sign bilaterally. NEUROLOGICAL: Awake and alert. L hemiparesis, has good movement in her LLE, and about 3/5 in her LUE PSYCH: Cooperative : Carter cath in place, urine looks clear LINE: no evidence of infection Assessment & Plan Remarks IMPRESSION Respiratory failure, resolved - due to CHF - tolerating extubation AV IE PVE, C/S Strep viridans New hemorrhagic CVA S/P AVR and MVR for severe AI and MR due to IE Episode of IE last year with complications Known IVDU Diarrhea RECOMMENDATION Continue IV PCN - aim for 6-8 weeks from last (+) BC - January 01 is 8 weeks from last (+) BC Continue Gentamicin, follow creat closely - give at least 2 weeks - give till November 27 Monitor progress Labs weekly while on Abx: CBC, creat, LFT Kenia Parson MD Nov 19, 2016 13:30
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
[2016-11-19] MEDS: TEMAZEPAM 7.5 MG CAP PO PRN (22:59)
[2016-11-20] VITALS (8 sets, daily range): BP systolic 96–107; BP diastolic 59–77; PULSE 113–121; RESP 18–28; TEMP 97.3–98.8; O2SAT 97–99
[2016-11-20] MEDS: GENTAMICIN INJ 40 MG in SODIUM CHLORIDE 0.9% INJ 100 ML IV SCH ×3 (01:54→16:18)
[2016-11-20] MEDS: PENICILLIN G POTASSIUM INJ 3,000,000 UNITS in SODIUM CHLORIDE 0.9% INJ 100 ML IV SCH ×6 (01:57→22:30)
[2016-11-20] MEDS: PANTOPRAZOLE SODIUM 40 MG VIAL IV PUSH SCH (01:57)
[2016-11-20] MEDS: RESP: ALBUTEROL 2.5 MG/IPRATROPIUM 0.5 MG NEB (PRN) NEB ×3 (02:12→17:04)
[2016-11-20] MEDS: ACETAMINOPHEN/HYDROcodone 325 MG/5 MG TAB PO PRN ×3 (05:01→22:29)
[2016-11-20] MEDS: levETIRAcetam INJ 500 MG in SODIUM CHLORIDE 0.9% INJ 100 ML IV SCH ×2 (05:57→17:24)
[2016-11-20] MEDS: RAMIPRIL 2.5 MG CAP PO SCH (08:21)
[2016-11-20] MEDS: CARVEDILOL 3.125 MG TAB PO SCH ×2 (08:21→22:29)
[2016-11-20] MEDS: CITALOPRAM HYDROBROMIDE 40 MG TAB PO SCH (08:25)
[2016-11-20] MEDS: SODIUM CHLORIDE 0.9% FLUSH 5 ML FLUSH FLUSH SCH ×2 (08:26→22:29)
[2016-11-20] MEDS: FUROSEMIDE 20 MG TAB PO SCH ×2 (08:26→17:25)
[2016-11-20] MEDS: FERROUS SULFATE 325 MG (65 MG ELEMENTAL IRON) TAB PO SCH ×2 (08:26→22:29)
[2016-11-20] MEDS: ENOXAPARIN SODIUM 40 MG/0.4 ML SYRINGE SQ SCH (08:26)
[2016-11-20] MEDS: SPIRONOLACTONE 25 MG TAB PO SCH ×2 (08:26→17:25)
[2016-11-20] MEDS: POTASSIUM CHLORIDE 10 MEQ CONTROLLED RELEASE TAB PO SCH (08:26)
[2016-11-20] MEDS: ASPIRIN 81 MG CHEW TAB PO SCH (08:26)
[2016-11-20] MEDS: LACTOBACILLUS ACIDOPHILUS TAB PO SCH ×2 (08:26→22:29)
[2016-11-20] MEDS: DOCUSATE SODIUM 100 MG CAP PO SCH ×2 (09:31→22:39)
--- NOTE | 2016-11-20 09:59 | HHI.FPPN ---
Subjective Remarks Patient seen this morning. No acute events overnight. Tachycardic, up to the 120s this morning. Pressures intermittently on the low end (MAP 70s) overnight. Ewa c/o some mild pain in LLQ. No N/V. Appetite is good. She thinks CP and SOB are improving. Doing incentive spirometry 10x per day and acapella 4x daily. PT able to sit at edge of bed today, but unable to do transfer to chair. Patient denies any F/C. Objective Vitals Vital Signs Date Time Temp Pulse Resp B/P Pulse Ox O2 Delivery O2 Flow Rate FiO2 11/20/16 08:00 Room Air 11/20/16 04:00 98.8 121 18 105/59 99 11/20/16 02:14 99 21 11/20/16 00:00 97.7 113 20 107/68 98 11/19/16 22:50 104 11/19/16 20:47 104 11/19/16 20:00 97.5 112 18 105/59 98 11/19/16 20:00 Room Air 11/19/16 16:00 97.8 107 20 102/66 99 11/19/16 12:00 97.9 108 20 99/74 100 I/O 11/19/16 11/19/16 11/19/16 11/20/16 11/20/16 11/20/16 07:00 15:00 23:00 07:00 15:00 23:00 Intake Total 730 ml 360 ml 240 ml 240 ml Output Total 2000 ml 1700 ml 500 ml Balance -1270 ml 360 ml -1460 ml -260 ml Intake Oral 120 ml 360 ml 240 ml 240 ml IV Total 610 ml Output Urine Total 2000 ml 1700 ml 500 ml # Bowel Movements 0 1 0 0 Result Diagram: 11/19/1615 11/19/16 0515 Objective Remarks GENERAL: female laying in bed in no distress. SKIN: Warm and dry. Now has FR anterior brachial PICC in place. HEENT: AT/NC. Pupils equal and round. Mild scleral icterus. MMM. HEART: RRR with 3/6 LARRY heard throughout; normal peripheral perfusion in bilateral lower extremities. LUNGS: non-labored breathing. CTAB. No adventitious sounds. ABDOMEN: Soft, ND. Minimally TTP in LLQ in area where lovenox injections given. Bruises present in LLQ from injections. : Carter in place with charlotte colored urine. EXTREMITIES: No cyanosis or clubbing. No LE edema present. NEURO: Follows commands. 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 Able to lift right upper and lower extremities against resistance. Some upper and lower extremity movement against gravity on the left. Left wrist in flexed position. Little extension with gravity neutralized. A/P Assessment and Plan 26 year old female with history of IVDU complicated by endocarditis s/ p mitral and aortic tissue valve replacement in September, severe CHF with EF ~25% , and CVA with left-sided hemiparesis was admitted on 11/06 for respiratory failure, severe sepsis, fluid overload, and recurrent endocarditis. Blood cultures growing Strep viridans. Critical care consulted, now signed off. nfectious disease managing antibiotic coverage. Cardiology and CT surgery consulted; patient not a candidate for a second valve replacement since she already has both MV and AV replaced in September and there is a question of current drug use. Patient had a new-onset seizure with respiratory failure on and was subsequently intubated. MRI showing mass with surrounding hemorrhage of left frontal lobe which worsened slightly on follow up. Neurology and neurosurgery consulted. Palliative care now on board, as well. Family currently wishes to continue aggressive care. She is now s/p extubation 11/13. Moved from ICU to med-surg floor 11/15. CT brain 11/16 shows mild improvement of left frontal hemorrhage. Discharge Planning Plan for DC to rehab. Improving clinically with diuresis, may be ready for rehab from medicine perspective in next 3-5 days. Will discuss with case management. Palliative care assisting with goals of care. Needs IV PCN until 01/01, likely with lifelong PO antibiotic ppx to follow. Defer to ID. Will discuss with Dr. Zayas Problem List: (1) Endocarditis Status: Acute Plan: Blood cultures growing step viridans. 2D echo suggestive of AV vegetation. - Repeat blood cultures on 11/09 show no growth - ID managing antibiotics * Continue PCN (11/09-). Per ID, cont until 01/01. * Gentamycin (11/15-) for synergy. Per ID, cont until 11/27. -cards and cards surgery have evaluated. Not a candidate for repeat cardiac surgery. Cultures: 11/09 Blood- Negative x5 days 11/07 Blood (Linex2 and Peripheralx2)- Strep Viridans; resistant to Erythromycin (2) CHF exacerbation Status: Acute Plan: 11/18- Repeat CXR obtained- mildly increased pulmonary edema. No adventitious sounds on exam today. Doing well on room air. 2.2 L UOP with -1360 balance over the past 24 hours. Weight today is stable at 54 kg. Waiting on AM labs. -Continue home ramipril and carvedilol with hold parameters (hold for BP <100/60 ). -Continue Spironolactone 25mg PO BID and Lasix 30mg PO BID. Monitor intake and output along with daily weights. Decrease diuresis if evidence of prerenal azotemia. -oral potassium supplementation at 10mg -PRN duoneb for SOB -incentive spirometry and acapella -1.5L fluid restriction with 2g sodium restriction (3) Cerebrovascular accident, embolic Status: Acute Plan: -Continue to follow coags. Warfarin on hold 10/04 intracranial bleeding. -INR 1.6 on 11/19 -Neurosurgery consulted: Rashad for sz ppx. -OT/PT -Keep perfusion pressure >65 -Continue 81 mg ASA -Low dose Lovenox added -Plan to rescan in 4 weeks or sooner if clinically indicated -add left wrist splint to keep in neutral position -change activity to OOB with assistance (specifically, edge of bed TID) History: Head CT 11/16- Evolving parenchymal hemorrhage L orbital frontal region as described above CT 11/13 showed left enlarging frontal lobe hematoma. New R parietal hemorrhage MRA 11/10 showing abrupt decrease in flow at M2 branches of right MCA MRI 11/09 showing widespread bilateral infarcts and focal intra-axial mass with surrounding hemorrhage of the left frontal lobe (4) Seizure Status: Acute Plan: Continue seizure ppx, as above. (5) Hepatitis C Status: Chronic Plan: Chronic issue. Monitor LFTs weekly. (6) Dietary counseling and surveillance Status: Acute Plan: Diet: heart healthy with thin liquids per speech. 1.5L fluid and 2g sodium restriction. Fluids: SLIV DVT ppx: SCDs. Does some rolling with PT, but unlikely she will be able to do OOB with assistance. Low dose Lovenox restarted. Problem Qualifiers (1) Endocarditis: Qualified Code: I33.0 - Acute bacterial endocarditis (2) CHF exacerbation: Qualified Code: I50.23 - Acute on chronic systolic congestive heart failure (3) Hepatitis C: Qualified Code: B18.2 - Chronic hepatitis C without hepatic coma Freddie Aguilar MD R3 Nov 20, 2016 09:58
[2016-11-20 10:45] LABS: AUTOMATED NEUTROPHIL # 8.4 TH/MM3 (1.8-7.7); BASOPHIL # 0.1 TH/MM3 (0-0.2); BASOPHIL % 0.9 % (0.0-2.0); EOSINOPHIL # 0.1 TH/MM3 (0-0.4); EOSINOPHIL % 0.5 % (0.0-4.0); HEMATOCRIT 32.1 % (35.0-46.0); HEMO FLAGS DIFF FINAL; LYMPH % 22.1 % (9.0-44.0); LYMPHOCYTE # 2.6 TH/MM3 (1.0-4.8); MEAN CORPUSCULAR HEMOGLOBIN 29.9 PG (27.0-34.0); MEAN CORPUSCULAR HGB CONC 30.8 % (32.0-36.0); MONO % 5.5 % (0.0-8.0); PLATELET COUNT 270 TH/MM3 (150-450); RED BLOOD COUNT 3.31 MIL/MM3 (4.00-5.30); RED CELL DISTRIBUTION WIDTH 22.5 % (11.6-17.2); WHITE BLOOD COUNT 11.8 TH/MM3 (4.0-11.0)
[2016-11-20 10:47] LABS: APTT (PATIENT) 35.6 SEC (24.3-30.1); INTERNATIONAL NORMALIZED RATIO 1.7 RATIO; PROTHROMBIN TIME - PATIENT 19.4 SEC (9.8-11.6)
[2016-11-20 11:12] LABS: BICARBONATE 19.2 MEQ/L (21.0-32.0); POTASSIUM 4.5 MEQ/L (3.5-5.1)
[2016-11-21] VITALS (11 sets, daily range): BP systolic 90–130; BP diastolic 53–75; PULSE 98–120; RESP 18–28; TEMP 97.9–98.5; O2SAT 92–100
[2016-11-21] MEDS: RESP: ALBUTEROL 2.5 MG/IPRATROPIUM 0.5 MG NEB (PRN) NEB ×2 (00:23→09:52)
[2016-11-21] MEDS: PANTOPRAZOLE SODIUM 40 MG VIAL IV PUSH SCH (00:52)
[2016-11-21] MEDS: TEMAZEPAM 7.5 MG CAP PO PRN ×2 (00:52→21:58)
[2016-11-21] MEDS: GENTAMICIN INJ 40 MG in SODIUM CHLORIDE 0.9% INJ 100 ML IV SCH ×3 (00:53→16:13)
[2016-11-21] MEDS: PENICILLIN G POTASSIUM INJ 3,000,000 UNITS in SODIUM CHLORIDE 0.9% INJ 100 ML IV SCH ×6 (02:09→21:59)
[2016-11-21] MEDS: levETIRAcetam INJ 500 MG in SODIUM CHLORIDE 0.9% INJ 100 ML IV SCH ×2 (06:25→16:54)
[2016-11-21] MEDS: CARVEDILOL 3.125 MG TAB PO SCH ×2 (08:23→21:00)
[2016-11-21] MEDS: LACTOBACILLUS ACIDOPHILUS TAB PO SCH ×2 (08:23→21:58)
[2016-11-21] MEDS: ACETAMINOPHEN/HYDROcodone 325 MG/5 MG TAB PO PRN ×3 (08:23→21:58)
[2016-11-21] MEDS: ASPIRIN 81 MG CHEW TAB PO SCH (08:23)
[2016-11-21] MEDS: POTASSIUM CHLORIDE 10 MEQ CONTROLLED RELEASE TAB PO SCH (08:23)
[2016-11-21] MEDS: CITALOPRAM HYDROBROMIDE 40 MG TAB PO SCH (08:23)
[2016-11-21] MEDS: RAMIPRIL 2.5 MG CAP PO SCH (08:24)
[2016-11-21] MEDS: FERROUS SULFATE 325 MG (65 MG ELEMENTAL IRON) TAB PO SCH ×2 (08:24→21:58)
[2016-11-21] MEDS: SPIRONOLACTONE 25 MG TAB PO SCH ×2 (08:24→16:54)
[2016-11-21] MEDS: FUROSEMIDE 20 MG TAB PO SCH (08:24)
[2016-11-21] MEDS: SODIUM CHLORIDE 0.9% FLUSH 5 ML FLUSH FLUSH SCH ×2 (08:24→21:58)
[2016-11-21] MEDS: ENOXAPARIN SODIUM 40 MG/0.4 ML SYRINGE SQ SCH (09:26)
--- NOTE | 2016-11-21 09:37 | HHI.FPPN ---
Subjective Remarks Patient seen this morning. No acute events overnight. More tachycardic overnight (up to 110s), per review of EMR. BPs on the low end (MAP 80s). Weight down to 53.4kg compared to 54 yesterday with 1.8 L UOP and -45 balance. Per nursing, she c/o increased dyspnea and diffuse body aches overnight. Required 4 breathing treatments over the past 24 hours. Ms. Barrios c/o worsening dyspnea this morning. No chest pain, Per nursing, O2 sats WNL. Did have diffuse body aches overnight, but feels better after getting pain medicine this morning. No other complaints. Denies any F/C or N/V. (Freddie Aguilar MD R3) Objective Vitals Vital Signs Date Time Temp Pulse Resp B/P Pulse Ox O2 Delivery O2 Flow Rate FiO2 11/21/16 08:25 Room Air 11/21/16 08:03 98.3 118 28 130/70 100 11/21/16 04:00 97.9 114 26 97/75 93 11/21/16 00:25 98 21 11/21/16 00:00 98.1 115 26 104/62 98 11/20/16 20:00 97.8 117 28 97/75 97 11/20/16 16:00 97.3 119 20 104/77 99 11/20/16 11:22 98.0 117 19 98/68 98 I/O 11/20/16 11/20/16 11/20/16 11/21/16 11/21/16 11/21/16 07:00 15:00 23:00 07:00 15:00 23:00 Intake Total 240 ml 1660 ml 120 ml 0 ml Output Total 500 ml 825 ml 600 ml 400 ml Balance -260 ml 835 ml -480 ml -400 ml Intake Oral 240 ml 600 ml 120 ml 0 ml IV Total 1060 ml Output Urine Total 500 ml 825 ml 600 ml 400 ml # Bowel Movements 0 1 0 0 (Freddie Aguilar MD R3) Result Diagram: 11/20/16 1025 11/20/16 1025 Objective Remarks GENERAL: Patient in mild distress 2/2 SOB. SKIN: Warm and dry. Now has FR anterior brachial PICC in place. HEENT: AT/NC. Pupils equal and round. Mild scleral icterus. MMM. HEART: RRR with 3/6 LARRY heard throughout; normal peripheral perfusion in bilateral lower extremities. LUNGS: Tachypneic with rate ~25. Faint, dry rales at bases. Faint, end- expiratory wheezing. ABDOMEN: Soft, ND. Minimally TTP in LLQ in area where lovenox injections given. Bruises present in LLQ from injections. : Carter in place with hcarlotte colored urine. EXTREMITIES: No cyanosis or clubbing. No LE edema present. No calf asymmetry. Negative Lola sign. NEURO: Follows commands. Client Onboarding Analyst right hand and wiggles all toes. Able to lift right upper and lower extremities against resistance. Some upper and lower extremity movement against gravity on the left. Left wrist brace in place. 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 Blood cultures growing Strep viridans. Critical care consulted, now signed off. nfectious disease managing antibiotic coverage. Cardiology and CT surgery consulted; patient not a candidate for a second valve replacement since she already has both MV and AV replaced in September and there is a question of current drug use. Patient had a new-onset seizure with respiratory failure on and was subsequently intubated. MRI showing mass with surrounding hemorrhage of left frontal lobe which worsened slightly on follow up. Neurology and neurosurgery consulted. Palliative care now on board, as well. Family currently wishes to continue aggressive care. She is now s/p extubation 11/13. Moved from ICU to med-surg floor 11/15. CT brain 11/16 shows mild improvement of left frontal hemorrhage. Now with worsening dyspnea this AM. Discharge Planning Plan for DC to rehab. Patient improving with diuresis and clear for DC to rehab , from medicine perspective. [facility] has assessed and states she needs improved strength before they will accept. Will further discuss with CM today. Palliative care assisting with goals of care. Needs IV PCN until 01/01/2017, likely with lifelong PO antibiotic ppx to follow. Defer to ID. Will discuss with Dr. Zayas (Freddie Aguilar MD R3) Attending Attestation Pt. examined and case discussed with resident physician I have read the above note and agree with the assessment/plan as discussed with me I was involved in all medical decision making for this patient Charbel Zayas MD (Charbel Zayas MD) Problem List: (1) Endocarditis Status: Acute Plan: Blood cultures growing step viridans. 2D echo suggestive of AV vegetation. - Repeat blood cultures on 11/09 show no growth - ID managing antibiotics * Continue PCN (11/09-). Per ID, cont until 01/01. * Gentamycin (11/15-) for synergy. Per ID, cont until 11/27. -cards and cards surgery have evaluated. Not a candidate for repeat cardiac surgery. Cultures: 11/09 Blood- Negative x5 days 11/07 Blood (Linex2 and Peripheralx2)- Strep Viridans; resistant to Erythromycin (2) CHF exacerbation Status: Acute Plan: 11/18- Repeat CXR obtained- mildly increased pulmonary edema. No adventitious sounds on exam today. Doing well on room air. 1.8 L UOP with -75 balance over the past 24 hours. Weight today decreased to 53.4 kg. Waiting on AM labs. -Continue home ramipril and carvedilol with hold parameters (hold for BP <100/60 ). -Continue Spironolactone 25mg PO BID and Lasix 30mg PO BID. Monitor intake and output along with daily weights. Decrease diuresis if evidence of prerenal azotemia. -oral potassium supplementation at 10mg -PRN duoneb for SOB -incentive spirometry and acapella -1.5L fluid restriction with 2g sodium restriction (3) Dyspnea Status: Acute Plan: Acutely worsening. Faint wheeze and dry rales on exam today. -increase frequency of vitals to q4 -rales likely atelectasis, however, very prone to flash pulmonary edema. Check CXR. -worsening tachycardia today. ? relation to breathing treatments. Will change to atrovent. Will give scheduled treatments q4 today with PRN treatments q2. -check peak flow -lovenox restarted this weekend, but was off anticoagulation several days and essentially immobile. Modified Wells 3, however, CHF more likely cause of her dyspnea and tachycardia more likely related to pain and increased albuterol use. Needs CTA if persistent tachycardia, desaturation, or worsening CP. (4) Cerebrovascular accident, embolic Status: Acute Plan: -Continue to follow coags. Warfarin on hold 2/ intracranial bleeding. -INR 1.7 on 11/20 -Neurosurgery consulted: Rashad for sz ppx. -OT/PT -Keep perfusion pressure >65 -Continue 81 mg ASA -Low dose Lovenox -Plan to rescan in 4 weeks or sooner if clinically indicated -add left wrist splint to keep in neutral position -change activity to OOB with assistance (specifically, edge of bed TID) History: Head CT 11/16- Evolving parenchymal hemorrhage L orbital frontal region as described above CT 11/13 showed left enlarging frontal lobe hematoma. New R parietal hemorrhage MRA 11/10 showing abrupt decrease in flow at M2 branches of right MCA MRI 11/09 showing widespread bilateral infarcts and focal intra-axial mass with surrounding hemorrhage of the left frontal lobe (5) Seizure Status: Acute Plan: Continue seizure ppx, as above. (6) Hepatitis C Status: Chronic Plan: Chronic issue. Monitor LFTs weekly. (7) Dietary counseling and surveillance Status: Acute Plan: Diet: heart healthy with thin liquids per speech. 1.5L fluid and 2g sodium restriction. Fluids: SLIV DVT ppx: SCDs. Does some rolling with PT, but unlikely she will be able to do OOB with assistance. Low dose Lovenox restarted. (Freddie Aguilar MD R3) Problem Qualifiers (1) Endocarditis: Qualified Code: I33.0 - Acute bacterial endocarditis (2) CHF exacerbation: Qualified Code: I50.23 - Acute on chronic systolic congestive heart failure (3) Dyspnea: Qualified Code: R06.02 - Shortness of breath (4) Hepatitis C: Qualified Code: B18.2 - Chronic hepatitis C without hepatic coma Freddie Aguilar MD R3 Nov 21, 2016 09:37 Charbel Zayas MD Nov 21, 2016 21:50
[2016-11-21] MEDS: DOCUSATE SODIUM 100 MG CAP PO SCH ×2 (10:03→21:59)
--- NOTE | 2016-11-21 11:16 | RADRPT ---
EXAM DATE/TIME: 11/21/2016 09:58 [facility] COMPARISON: CHEST SINGLE AP, November 18, 2016, 14:28. INDICATIONS: Dyspnea MEDICAL HISTORY: Stroke. Cardiovascular disease. Cerebrovascular disease. SURGICAL HISTORY: Heart valve ENCOUNTER: Initial ACUITY: 2 weeks PAIN SCORE: 7/10 LOCATION: Bilateral chest FINDINGS: Median sternotomy wires are noted status post cardiac valve surgery. The heart remains enlarged. Sm all right pleural effusion is noted. Mild to moderate pulmonary vascular congestion is noted bilater ally. A right-sided PICC line is noted with its tip at the junction of the superior vena cava and ri ght atrium. CONCLUSION: 1. Mild to moderate pulmonary vascular congestion bilaterally. 2. Small right pleural effusion. 3. Cardiomegaly. Ayden Carpenter MD on November 21, 2016 at 10:51 Board Certified Radiologist. This report was verified electronically.
[2016-11-21] MEDS ORDERED: FUROSEMIDE 20 MG/2 ML VIAL IV PUSH ONE ×2 (12:00→13:00)
[2016-11-21] MEDS: RESP: IPRATROPIUM 0.5 MG/2.5 ML NEB NEB SCH ×4 (13:51→23:42)
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
--- NOTE | 2016-11-21 16:15 | HHI.FPPN ---
Addendum to progress note ADDENDUM Reason for addendum: Additonal documentation Additional information S: patient re-assessed at 1600 today. Mother present in the room. Per nursing, patient still c/o dyspnea. Requested 2 additional breathing treatments this afternoon. HR persistently in 100-110s. Patient c/o worsening substernal CP. Similar to CP after sternotomy, but slightly increased in intensity. Mother reports concern dyspnea getting worse today. Stat CXR this morning showed mild- to-moderate pulmonary venous congestion, essentially unchanged from prior study. She was given 20 mg IV lasix x2. Does report mild improvement with this. O: Vitals (spot check): SaO2 93-94% on room air, HR in 100s, BP 90/60s CV: tachycardic. Regular rhythm. +2 peripheral pulses. RESP: mildly increased work of breathing. Faint rales at lung bases, essentially unchanged from exam this AM. A/P: 26 year old female with history of recurrently endocarditis s/p mitral and aortic valve replacement admitted with SOB. Later discovered to have left frontal embolic infarct with associated hemorrhage. Now with acute worsening dyspnea. -dyspnea most likely related to CHF, but at risk for PE. Anticoagulation restarted this weekend, but was held several days before this 2/2 intracranial bleed. Her O2 sats have dropped mildly this afternoon and patient is noticeably more anxious. Modified Wells score of 3. Will check Ddimer. Proceed with CTA if positive. -? anxiety contributing to dyspnea. Will add PRN ativan -cont breathing treatments SOMMER q4 -supplemental O2, as needed -adjusting diuresis, see daily progress note Will discuss with Freddie Rivers MD R3 Nov 21, 2016 16:15
[2016-11-21 17:04] LABS: POTASSIUM 4.3 MEQ/L (3.5-5.1)
[2016-11-21] MEDS: LORazepam 1 MG TAB PO PRN (18:25)
[2016-11-21] MEDS ORDERED: IOHEXOL 350 MG/ML 10 ML VIAL (for RAD DIAG) IV ONE (19:34)
--- NOTE | 2016-11-21 19:46 | RADRPT ---
EXAM DATE/TIME: 11/21/2016 19:20 [facility] COMPARISON: CT PULMONARY ANGIOGRAM, September 01, 2016, 10:23. CHEST SINGLE AP, November 21, 2016, 9:58. INDICATIONS : Evaluate for embolism. IV CONTRAST: 75 cc Omnipaque 350 (iohexol) IV RADIATION DOSE: 22.94 CTDIvol (mGy) MEDICAL HISTORY : Cardiovascular disease. Cerebrovascular disease. Hepatitis C. SURGICAL HISTORY : None. ENCOUNTER: Initial ACUITY: 1 day PAIN SCALE: 2/10 LOCATION: chest TECHNIQUE: Volumetric scanning of the chest was performed using a pulmonary embolism protocol MIP images were re constructed. Using automated exposure control and adjustment of the mA and/or kV according to patien t size, radiation dose was kept as low as reasonably achievable to obtain optimal diagnostic quality images. FINDINGS: There is no evidence for PE for technique. Large right pleural effusion is present with a small left pleural effusion. There is slight compressive collapse of the right lower lung. The there is a s mall pericardial effusion and slight fluid within the mediastinum as well with a few slightly promine nt lymph nodes the largest one measures 1.9 cm in size in the precarinal location. CONCLUSION: 1. There is no evidence for PE for technique. 2. Bilateral pleural effusions worse on the right, slight fluid within the mediastinum and pericardia l effusion and a few prominent mediastinal lymph nodes. Ken Britton MD on November 21, 2016 at 19:42 Board Certified Radiologist. This report was verified electronically.
--- NOTE | 2016-11-21 23:30 | RADRPT ---
EXAM DATE/TIME: 11/21/2016 22:40 [facility] COMPARISON: US LEG BILATERAL VENOUS DOPPLER, August 29, 2016, 21:13. INDICATIONS : Elevated D-dimer. MEDICAL HISTORY : Hepatitis C. Methicillin-resistant Staphylococcus aureus. Cerebrovascular accident. Left arm numbnes s. Endocarditis. Anticoagulant therapy. Pneumonia. C.diff. MDRO. SURGICAL HISTORY : Fusion, cervical. Cardiac valve replacement. ENCOUNTER: Sequela ACUITY: 1 day PAIN SCORE: 2/10 LOCATION: Left legs. TECHNIQUE: Venous ultrasound of the left and right leg was performed from the inguinal ligament to the proximal calf. Real-time, color Doppler and spectral tracing, compression and augmentation techniques were us ed. FINDINGS: RIGHT LEG: There is normal compressibility of the deep venous system from the inguinal region to the proximal ca lf. No echogenic clot is seen in the lumen of the common femoral, femoral, popliteal, and posterior tibial veins. There is a normal response of the venous system to proximal and distal augmentation an d respiration. LEFT LEG: There is normal compressibility of the deep venous system from the inguinal region to the proximal ca lf. No echogenic clot is seen in the lumen of the common femoral, femoral, popliteal, and posterior tibial veins. There is a normal response of the venous system to proximal and distal augmentation an d respiration. CONCLUSION: Normal examination. Jonny Neal MD on November 21, 2016 at 23:28 Board Certified Radiologist. This report was verified electronically.
[2016-11-22] VITALS (12 sets, daily range): BP systolic 90–129; BP diastolic 54–75; PULSE 53–124; RESP 16–20; TEMP 97.2–98.8; O2SAT 94–100
[2016-11-22] MEDS: GENTAMICIN INJ 40 MG in SODIUM CHLORIDE 0.9% INJ 100 ML IV SCH ×3 (00:33→16:52)
[2016-11-22] MEDS: PANTOPRAZOLE SODIUM 40 MG VIAL IV PUSH SCH (00:33)
[2016-11-22] MEDS: PENICILLIN G POTASSIUM INJ 3,000,000 UNITS in SODIUM CHLORIDE 0.9% INJ 100 ML IV SCH ×6 (02:16→21:25)
[2016-11-22] MEDS: LORazepam 1 MG TAB PO PRN ×4 (02:41→22:09)
[2016-11-22] MEDS: RESP: IPRATROPIUM 0.5 MG/2.5 ML NEB NEB SCH ×4 (02:47→20:06)
[2016-11-22] MEDS: levETIRAcetam INJ 500 MG in SODIUM CHLORIDE 0.9% INJ 100 ML IV SCH ×2 (05:35→17:53)
[2016-11-22 06:30] LABS: BICARBONATE 22.1 MEQ/L (21.0-32.0); POTASSIUM 4.5 MEQ/L (3.5-5.1)
[2016-11-22] MEDS: ACETAMINOPHEN/HYDROcodone 325 MG/5 MG TAB PO PRN ×3 (06:48→22:16)
[2016-11-22] MEDS: RESP: IPRATROPIUM 0.5 MG/2.5 ML NEB NEB PRN ×2 (07:42→10:17)
[2016-11-22] MEDS: CARVEDILOL 3.125 MG TAB PO SCH ×2 (09:00→21:00)
[2016-11-22] MEDS: SPIRONOLACTONE 25 MG TAB PO SCH ×2 (09:00→17:54)
[2016-11-22] MEDS: SODIUM CHLORIDE 0.9% FLUSH 5 ML FLUSH FLUSH SCH ×2 (09:00→21:00)
[2016-11-22] MEDS: RAMIPRIL 2.5 MG CAP PO SCH (09:00)
[2016-11-22] MEDS: LACTOBACILLUS ACIDOPHILUS TAB PO SCH ×2 (09:05→21:24)
[2016-11-22] MEDS: CITALOPRAM HYDROBROMIDE 40 MG TAB PO SCH (09:05)
[2016-11-22] MEDS: FERROUS SULFATE 325 MG (65 MG ELEMENTAL IRON) TAB PO SCH ×2 (09:06→21:24)
[2016-11-22] MEDS: POTASSIUM CHLORIDE 10 MEQ CONTROLLED RELEASE TAB PO SCH (09:06)
[2016-11-22] MEDS: ASPIRIN 81 MG CHEW TAB PO SCH (09:07)
[2016-11-22] MEDS: ENOXAPARIN SODIUM 40 MG/0.4 ML SYRINGE SQ SCH (10:15)
--- NOTE | 2016-11-22 10:26 | HHI.FPPN ---
Subjective Remarks Ms Barrios is lying in bed and complaining of some SOB though better than yesterday. She reports many things as leading to improvement of her sxs including "breathing treatments", oxygen, sitting up more in bed, etc. She is not the most accurate historian but states that all the things listed help her breathe a bit better. She does not have a PE and her legs will be dopplered today. She is still very weak but the plan is to get her up to sit more. Also, her anxiety will be treated as well. Objective Vitals Vital Signs Date Time Temp Pulse Resp B/P Pulse Ox O2 Delivery O2 Flow Rate FiO2 11/22/16 10:20 106 98/62 11/22/16 10:09 Room Air 11/22/16 08:00 97.8 106 20 92/54 94 11/22/16 07:45 98 21 11/22/16 04:36 97.6 88 16 112/58 98 11/22/16 04:27 98 11/22/16 00:27 98.8 53 16 129/59 95 11/22/16 00:20 16 11/21/16 23:42 92 21 11/21/16 22:00 Room Air 11/21/16 20:00 98.0 98 18 108/53 96 11/21/16 18:26 98/56 11/21/16 16:59 94/60 11/21/16 16:02 98.5 106 24 90/56 94 11/21/16 12:30 98.0 109 24 99/67 97 I/O 11/21/16 11/21/16 11/21/16 11/22/16 11/22/16 11/22/16 07:00 15:00 23:00 07:00 15:00 23:00 Intake Total 0 ml 442 ml 360 ml 240 ml Output Total 400 ml 500 ml 400 ml 1000 ml Balance -400 ml -58 ml -40 ml -760 ml Intake Oral 0 ml 240 ml 360 ml 240 ml IV Total 202 ml Output Urine Total 400 ml 500 ml 400 ml 1000 ml # Bowel Movements 0 0 0 0 Result Diagram: 11/20/16 1025 11/22/16 0530 Objective Remarks GENERAL: Patient in no to little distress 2/2 SOB. SKIN: Warm and dry. has FR anterior brachial PICC in place. no signs of infection HEENT: AT/NC. Pupils equal and round. Mild scleral icterus. MMM. HEART: RRR with 3/6 LARRY heard throughout; normal peripheral perfusion in bilateral lower extremities. LUNGS: no tachypnea. ABDOMEN: Soft, ND. Bruises present in LLQ from injections. : Carter in place with charlotte colored urine. EXTREMITIES: No cyanosis or clubbing. No LE edema present. No calf asymmetry. Negative Lola sign. NEURO: Follows commands. 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 Able to lift right upper and lower extremities against resistance. Some upper and lower extremity movement against gravity on the left. Left wrist brace in place. 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 Blood cultures growing Strep viridans. Critical care consulted, now signed off. Infectious disease managing antibiotic coverage. Cardiology and CT surgery consulted; patient not a candidate for a second valve replacement since she already has both MV and AV replaced in September and there is a question of current drug use. Patient had a new-onset seizure with respiratory failure on and was subsequently intubated. MRI showing mass with surrounding hemorrhage of left frontal lobe which worsened slightly on follow up. Neurology and neurosurgery consulted. Palliative care now on board, as well. Family currently wishes to continue aggressive care. She is now s/p extubation 11/13. Moved from ICU to med-surg floor 11/15. CT brain 11/16 shows mild improvement of left frontal hemorrhage. Discharge Planning Plan for DC to rehab. Patient improving with diuresis and clear for DC to rehab , from medicine perspective. [facility] has assessed and states she needs improved strength before they will accept. Will further discuss with CM today. Palliative care assisting with goals of care. Needs IV PCN until 01/01/2017, likely with lifelong PO antibiotic ppx to follow. Defer to ID. Will discuss with Dr. Zayas Problem List: (1) Endocarditis Status: Acute Plan: Blood cultures growing step viridans. 2D echo suggestive of AV vegetation. - Repeat blood cultures on 11/09 show no growth - ID managing antibiotics * Continue PCN (11/09-). Per ID, cont until 01/01. * Gentamycin (11/15-) for synergy. Per ID, cont until 11/27. -cards and cards surgery have evaluated. Not a candidate for repeat cardiac surgery. Cultures: 11/09 Blood- Negative x5 days 11/07 Blood (Linex2 and Peripheralx2)- Strep Viridans; resistant to Erythromycin (2) CHF exacerbation Status: Acute Plan: 11/18- Repeat CXR obtained- mildly increased pulmonary edema. No adventitious sounds on exam today. Doing well on room air. -Continue home ramipril and carvedilol with hold parameters (hold for BP <100/60 ). -Continue Spironolactone 25mg PO BID and Lasix was 30mg PO BID, now being given iv. Monitor intake and output along with daily weights. Decrease diuresis if evidence of prerenal azotemia which she does not have now. -oral potassium supplementation at 10mg -scheduled duoneb for SOB -incentive spirometry and acapella -1.5L fluid restriction with 2g sodium restriction -can consider oxygen for comfort as she has cardiogenic SOB (3) Dyspnea Status: Acute Plan: improved since yesterday. Faint wheeze and dry rales on exam today. -increase frequency of vitals to q4 -rales likely atelectasis, however, very prone to flash pulmonary edema. Checked CXR. -on atrovent. Will give scheduled treatments q4 today with PRN treatments q2. -check peak flow -lovenox restarted this weekend, but was off anticoagulation several days and essentially immobile. Modified Wells 3, however, CHF more likely cause of her dyspnea and tachycardia more likely related to pain and increased albuterol use. had CTA no PE, checking legs by doppler (4) Cerebrovascular accident, embolic Status: Acute Plan: -Continue to follow coags. Warfarin on hold 10/04 intracranial bleeding. -INR 1.7 on 11/20 -Neurosurgery consulted: Rashad for mark ppx. -OT/PT -Keep perfusion pressure >65 -Continue 81 mg ASA -Low dose Lovenox -Plan to rescan in 4 weeks or sooner if clinically indicated -add left wrist splint to keep in neutral position -change activity to OOB with assistance (specifically, edge of bed TID) History: Head CT 11/16- Evolving parenchymal hemorrhage L orbital frontal region as described above CT 11/13 showed left enlarging frontal lobe hematoma. New R parietal hemorrhage MRA 11/10 showing abrupt decrease in flow at M2 branches of right MCA MRI 11/09 showing widespread bilateral infarcts and focal intra-axial mass with surrounding hemorrhage of the left frontal lobe (5) Seizure Status: Acute Plan: Continue seizure ppx, as above. (6) Hepatitis C Status: Chronic Plan: Chronic issue. Monitor LFTs weekly. (7) Dietary counseling and surveillance Status: Acute Plan: Diet: heart healthy with thin liquids per speech. 1.5L fluid and 2g sodium restriction. Fluids: SLIV DVT ppx: SCDs. Does some rolling with PT, but will be working on sitting up today. Low dose Lovenox restarted. (8) Anxiety Status: Chronic Plan: will have low doses of ativan Problem Qualifiers (1) Endocarditis: Qualified Code: I33.0 - Acute bacterial endocarditis (2) CHF exacerbation: Qualified Code: I50.23 - Acute on chronic systolic congestive heart failure (3) Dyspnea: Qualified Code: R06.02 - Shortness of breath (4) Hepatitis C: Qualified Code: B18.2 - Chronic hepatitis C without hepatic coma Gladys Pires MD Nov 22, 2016 10:26
[2016-11-22] MEDS: FUROSEMIDE 20 MG/2 ML VIAL IV PUSH SCH ×2 (11:08→17:54)
[2016-11-22] MEDS: DOCUSATE SODIUM 100 MG CAP PO SCH ×2 (11:08→21:24)
--- NOTE | 2016-11-22 14:33 | HHI.IDPN ---
Subjective Subjective Remarks Notes reviewed Has PICC in place Temps ok Not SOB, on nasal O2 CTA no PE US BLE no DVT Has bilateral pleural effusions No tinnitus Creatinine ok BC with viridans Strep Last (+) BC 11/07, BC 11/09 negative Echo with AV vegetation Not surgical candidate for redo valve Antibiotics PCN Gentamicin Lines PICC - 11/18 Past Medical History Hospitalization from October to December 2015 for infective endocarditis and subsequent complication Hospitalization June 22 to July 23 for CHF and cervical discitis She's had CVA with subarachnoid hemorrhage, embolic lesions to the brain lungs and spleen as a result of her endocarditis Known IV drug use, patient states last time she used was prior to her hospitalization in August 2016 Bilateral sacroiliitis CVA with residual left-sided hemiplegia Past Surgical History Surgery on her discitis last July 09, 2016 AVR, MVR with tissue valve September 07, 2016 Allergies: Coded Allergies: *MDRO Multi-Drug Resistant Organism (Verified Adverse Reaction, Unknown, ) MRSA PCR screen POSITIVE- 10/18/2015 & 08/12/16 MRSA (urine, blood, 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 Vital Signs Date Time Temp Pulse Resp B/P Pulse Ox O2 Delivery O2 Flow Rate FiO2 11/22/16 12:00 97.2 114 16 113/75 98 11/22/16 10:20 106 98/62 11/22/16 10:09 Room Air 11/22/16 08:10 104 11/22/16 08:00 97.8 106 20 92/54 94 11/22/16 07:45 98 21 11/22/16 04:36 97.6 88 16 112/58 98 11/22/16 04:27 98 11/22/16 00:27 98.8 53 16 129/59 95 11/22/16 00:20 16 11/21/16 23:42 92 21 11/21/16 22:00 Room Air 11/21/16 20:00 98.0 98 18 108/53 96 11/21/16 18:26 98/56 11/21/16 16:59 94/60 11/21/16 16:02 98.5 106 24 90/56 94 11/21/16 11/21/16 11/22/16 15:00 23:00 07:00 Intake Total 442 ml 360 ml 240 ml Output Total 500 ml 400 ml 1000 ml Balance -58 ml -40 ml -760 ml Intake Oral 240 ml 360 ml 240 ml IV Total 202 ml Output Urine Total 500 ml 400 ml 1000 ml # Bowel Movements 0 0 0 . Laboratory Tests Test 11/21/16 11/22/16 16:09 05:30 Sodium Level 138 MEQ/L 138 MEQ/L Potassium Level 4.3 MEQ/L 4.5 MEQ/L Chloride Level 103 MEQ/L 103 MEQ/L Carbon Dioxide Level 21.0 MEQ/L 22.1 MEQ/L Anion Gap 14 MEQ/L 13 MEQ/L Blood Urea Nitrogen 32 MG/DL 29 MG/DL Creatinine 1.01 MG/DL 0.79 MG/DL Estimat Glomerular Filtration 66 ML/MIN 87 ML/MIN Rate Random Glucose 116 MG/DL 88 MG/DL Calcium Level 8.6 MG/DL 8.8 MG/DL Imaging Chest X-Ray 11/18/16 0000 Signed Impressions: Service Date/Time: Friday, November 18, 2016 14:28 - CONCLUSION: 1. Interval placement of right-sided PICC line. 2. Hazy opacity remains in the perihilar regions and both lung bases which appears mildly improved. This may represent mild pulmonary edema. 3. Probable small left effusion. Bertin Segura MD Chest X-Ray 11/18/16 0000 Signed Impressions: Service Date/Time: Friday, November 18, 2016 07:54 - CONCLUSION: Cardiomegaly with bilateral pulmonary edema slightly more prominent. Abram Reyes MD Head CT 11/16/16 1423 Signed Impressions: Service Date/Time: Wednesday, November 16, 2016 15:37 - CONCLUSION: Evolving parenchymal hemorrhage left orbital frontal region as described above, slightly smaller in the interval. Bennie Yanez MD FACR Chest X-Ray 11/08/16 0600 Signed Impressions: Service Date/Time: October 02:25 - CONCLUSION: Persistent bibasilar effusions with associated airspace disease. No interval change. Milan Aguilar MD Lower Extremity Ultrasound 11/07/16 0000 Signed Impressions: Service Date/Time: Monday, November 07, 2016 09:33 - CONCLUSION: No DVT of the left lower extremity. Nonspecific subcutaneous edema. Mookie Scales MD Physical Exam GENERAL: awake and alert, NAD SKIN: Cool and moist. No generalized rash HEENT: Kaylor conjunctivae, no petechia or hemorrhage. No scleral icterus. Moist oral mucosa. NECK: Supple, nontender, no meningeal signs. CARDIOVASCULAR: Regular rate and rhythm. There is a systolic murmur heard on the whole left precordium and base of the heart. No pericardial rub heard. RESPIRATORY: Coarse breath sounds bilaterally. Decreased breath sounds at the bases. GASTROINTESTINAL: Abdomen soft, non-tender, nondistended. Bowel sounds are present and normoactive. No organomegaly. No guarding. MUSCULOSKELETAL: Extremities without clubbing, cyanosis, warm and well perfused. No calf tenderness. Negative Homans sign bilaterally. NEUROLOGICAL: Awake and alert. L hemiparesis, has good movement in her LLE, and about 3/5 in her LUE PSYCH: Cooperative : Carter cath in place, urine looks clear LINE: no evidence of infection Assessment & Plan Remarks IMPRESSION Respiratory failure, resolved - due to CHF - stable post extubation AV IE PVE, C/S Strep viridans New hemorrhagic CVA S/P AVR and MVR for severe AI and MR due to IE Episode of IE last year with complications Known IVDU Diarrhea RECOMMENDATION Continue IV PCN - aim for 6-8 weeks from last (+) BC - January 01 is 8 weeks from last (+) BC Continue Gentamicin, follow creat closely - give at least 2 weeks - give till November 27 Monitor progress Labs weekly while on Abx: CBC, creat, LFT Clinically doing well from ID standpoint She will need chronic oral suppressive Abx after she finishes her IV Abx Kenia Parson MD Nov 22, 2016 14:33
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
[2016-11-22] MEDS: TEMAZEPAM 7.5 MG CAP PO PRN (21:24)
[2016-11-23] VITALS (12 sets, daily range): BP systolic 82–107; BP diastolic 40–84; PULSE 100–119; RESP 16–22; TEMP 97.4–98.1; O2SAT 92–100
[2016-11-23] MEDS: PANTOPRAZOLE SODIUM 40 MG VIAL IV PUSH SCH ×2 (00:56→23:45)
[2016-11-23] MEDS: GENTAMICIN INJ 40 MG in SODIUM CHLORIDE 0.9% INJ 100 ML IV SCH ×4 (00:56→23:45)
[2016-11-23] MEDS: RESP: IPRATROPIUM 0.5 MG/2.5 ML NEB NEB SCH ×6 (01:36→19:21)
[2016-11-23] MEDS: PENICILLIN G POTASSIUM INJ 3,000,000 UNITS in SODIUM CHLORIDE 0.9% INJ 100 ML IV SCH ×6 (02:12→21:06)
[2016-11-23] MEDS: levETIRAcetam INJ 500 MG in SODIUM CHLORIDE 0.9% INJ 100 ML IV SCH ×2 (04:59→17:46)
[2016-11-23] MEDS: ACETAMINOPHEN/HYDROcodone 325 MG/5 MG TAB PO PRN (06:20)
[2016-11-23] MEDS: CARVEDILOL 3.125 MG TAB PO SCH ×2 (08:34→21:00)
[2016-11-23] MEDS: CITALOPRAM HYDROBROMIDE 40 MG TAB PO SCH (08:34)
[2016-11-23] MEDS: LACTOBACILLUS ACIDOPHILUS TAB PO SCH ×2 (08:34→21:07)
[2016-11-23] MEDS: ASPIRIN 81 MG CHEW TAB PO SCH (08:35)
[2016-11-23] MEDS: FERROUS SULFATE 325 MG (65 MG ELEMENTAL IRON) TAB PO SCH ×2 (08:35→21:07)
[2016-11-23] MEDS: POTASSIUM CHLORIDE 10 MEQ CONTROLLED RELEASE TAB PO SCH (08:35)
[2016-11-23] MEDS: RAMIPRIL 2.5 MG CAP PO SCH (08:35)
[2016-11-23] MEDS: FUROSEMIDE 20 MG/2 ML VIAL IV PUSH SCH ×2 (08:36→17:32)
[2016-11-23] MEDS: SPIRONOLACTONE 25 MG TAB PO SCH ×3 (08:45→17:33)
[2016-11-23] MEDS: LORazepam 1 MG TAB PO PRN (08:49)
[2016-11-23] MEDS: SODIUM CHLORIDE 0.9% FLUSH 5 ML FLUSH FLUSH SCH ×2 (08:51→21:00)
--- NOTE | 2016-11-23 09:17 | HHI.FPPN ---
Subjective Remarks Patient seen this morning. No acute events overnight. HR is up to the 110s this morning. Otherwise her vitals are WNL. She has 1L fluid output over the past 24 hours with an estimate -570mL balance. Weight today is up to 54.3kg compared to 53.4kg yesterday. Her spironolactone has not been administered the past 2 mornings 2/2 blood pressure concerns. This morning, Ewa c/o continued dyspnea along with fatigue. Ativan does help with anxiety, but still feels anxious whenever she is SOB. She is open to trying supplemental O2. No other complaints this AM. Denies any CP or F/C. (Freddie Aguilar MD R3) Objective Vitals Vital Signs Date Time Temp Pulse Resp B/P Pulse Ox O2 Delivery O2 Flow Rate FiO2 11/23/16 08:00 97.5 118 20 106/84 98 11/23/16 07:31 98 21 11/23/16 04:03 116 11/23/16 04:00 97.4 119 16 95/70 99 11/23/16 00:00 97.6 117 16 107/71 92 11/22/16 23:30 18 11/22/16 22:22 97.5 121 18 100/69 100 11/22/16 22:15 Room Air 11/22/16 20:07 97 11/22/16 20:00 97.7 118 20 90/71 98 11/22/16 16:00 97.3 124 20 104/63 95 11/22/16 12:00 97.2 114 16 113/75 98 11/22/16 10:20 106 98/62 11/22/16 10:09 Room Air I/O 11/22/16 11/22/16 11/22/16 11/23/16 11/23/16 11/23/16 06:59 14:59 22:59 06:59 14:59 22:59 Intake Total 240 ml 360 ml 120 ml Output Total 1000 ml 900 ml 150 ml Balance -760 ml -540 ml -30 ml Intake Oral 240 ml 360 ml 120 ml Output Urine Total 1000 ml 900 ml 150 ml # Bowel Movements 0 0 0 (Freddie Aguilar MD R3) Result Diagram: 11/20/16 1025 11/22/16 0530 Objective Remarks GENERAL: Mild distress 2/2 SOB. SKIN: Warm and dry. has FR anterior brachial PICC in place. no signs of infection HEENT: AT/NC. Pupils equal and round. Mild scleral icterus. MMM. HEART: RRR with 3/6 LARRY heard throughout; normal peripheral perfusion in bilateral lower extremities. LUNGS: Breathing mildly labored. Lungs CTAB. No adventitious sounds. ABDOMEN: Soft, ND. Bruises present in LLQ from injections. : Carter in place with char[place] colored urine. EXTREMITIES: No cyanosis or clubbing. No LE edema present. No calf asymmetry. Negative Lola sign. NEURO: Follows commands. Casualty Claim Adjuster right hand and wiggles all toes. Able to lift right upper and lower extremities against resistance. Some upper and lower extremity movement against gravity on the left. Left wrist brace in place. 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 Blood cultures growing Strep viridans. Critical care consulted, now signed off. Infectious disease managing antibiotic coverage. Cardiology and CT surgery consulted; patient not a candidate for a second valve replacement since she already has both MV and AV replaced in September and there is a question of current drug use. Patient had a new-onset seizure with respiratory failure on and was subsequently intubated. MRI showing mass with surrounding hemorrhage of left frontal lobe which worsened slightly on follow up. Neurology and neurosurgery consulted. Palliative care now on board, as well. Family currently wishes to continue aggressive care. She is now s/p extubation 11/13. Moved from ICU to med-surg floor 11/15. CT brain 11/16 shows mild improvement of left frontal hemorrhage. Discharge Planning Plan for DC to rehab. Patient improving with diuresis and clear for DC to rehab , from medicine perspective. [facility] has assessed and states she needs improved strength before they will accept. Yesterday had transport to bed with mod assist , per PT. Will further discuss with CM today. Palliative care assisting with goals of care. Needs IV PCN until 01/01/2017, likely with lifelong PO antibiotic ppx to follow. Defer to ID. Will discuss with Dr. Pires (Freddie Aguilar MD R3) Attending Attestation Patient seen and examined. Case reviewed and discussed with the resident team. Agree with plan of care as discussed with me and documented in the resident note. (Gladys Pires MD) Problem List: (1) Endocarditis Status: Acute Plan: Blood cultures growing step viridans. 2D echo suggestive of AV vegetation. - Repeat blood cultures on 11/09 show no growth - ID managing antibiotics * Continue PCN (11/09-). Per ID, cont until 01/01. * Gentamycin (11/15-) for synergy. Per ID, cont until 11/27. -cards and cards surgery have evaluated. Not a candidate for repeat cardiac surgery. Cultures: 11/09 Blood- Negative x5 days 11/07 Blood (Linex2 and Peripheralx2)- Strep Viridans; resistant to Erythromycin (2) CHF exacerbation Status: Acute Plan: 11/18- Repeat CXR obtained- mildly increased pulmonary edema. No adventitious sounds on exam today. Doing well on room air. -Continue home ramipril and carvedilol with hold parameters (hold for BP <100/60 ). -Continue Spironolactone 25mg PO BID and Lasix 20 mg IV BID. Decrease diuresis if prerenal azotemia. Monitor I/Os and daily weights. -oral potassium supplementation at 10mg -scheduled atrovent for SOB. Plan to make PRN only tomorrow if doing better today. -incentive spirometry and acapella -1.5L fluid restriction with 2g sodium restriction -add supplemental O2 1-2L for cardiogenic dyspnea (3) Dyspnea Status: Acute Plan: Mild improvement from yesterday. -on atrovent. Will give scheduled treatments q4 today with PRN treatments q2. -? anxiety contributing. Will give PRN ativan. -check peak flow History: -CTA and bl LE doppler negative 11/21 (4) Cerebrovascular accident, embolic Status: Acute Plan: -Continue to follow coags. Warfarin on hold 2/2 intracranial bleeding. -INR 1.7 on 11/20. Re-check coags with tomorrow's labs. -Neurosurgery consulted: Rashad for sz ppx. -OT/PT -Keep perfusion pressure >65 -Continue 81 mg ASA -Low dose Lovenox -Plan to rescan in 4 weeks or sooner if clinically indicated -add left wrist splint to keep in neutral position -change activity to OOB with assistance (specifically, edge of bed TID) History: Head CT 11/16- Evolving parenchymal hemorrhage L orbital frontal region as described above CT 11/13 showed left enlarging frontal lobe hematoma. New R parietal hemorrhage MRA 11/10 showing abrupt decrease in flow at M2 branches of right MCA MRI 11/09 showing widespread bilateral infarcts and focal intra-axial mass with surrounding hemorrhage of the left frontal lobe (5) Seizure Status: Acute Plan: Continue seizure ppx, as above. (6) Hepatitis C Status: Chronic Plan: Chronic issue. Monitor LFTs weekly. (7) Anxiety Status: Chronic Plan: will have low doses of ativan (8) Dietary counseling and surveillance Status: Acute Plan: Diet: heart healthy with thin liquids per speech. 1.5L fluid and 2g sodium restriction. Fluids: SLIV DVT ppx: SCDs. Does some rolling with PT, but will be working on sitting up today. Low dose Lovenox restarted. (Freddie Aguilar MD R3) Problem Qualifiers (1) Endocarditis: Qualified Code: I33.0 - Acute bacterial endocarditis (2) CHF exacerbation: Qualified Code: I50.23 - Acute on chronic systolic congestive heart failure (3) Dyspnea: Qualified Code: R06.02 - Shortness of breath (4) Cerebrovascular accident, embolic: (5) Hepatitis C: Qualified Code: B18.2 - Chronic hepatitis C without hepatic coma Freddie Aguilar MD R3 Nov 23, 2016 09:17 Gladys Pires MD Nov 26, 2016 09:32
[2016-11-23] MEDS: ENOXAPARIN SODIUM 40 MG/0.4 ML SYRINGE SQ SCH (09:49)
[2016-11-23] MEDS: DOCUSATE SODIUM 100 MG CAP PO SCH ×2 (09:55→22:45)
--- NOTE | 2016-11-23 11:02 | HHI.IDPN ---
Subjective Subjective Remarks Notes reviewed Temps ok On and off SOB, on nasal O2 Has good sats CTA no PE US BLE no DVT Has bilateral pleural effusions No tinnitus Creatinine ok BC with viridans Strep Last (+) BC 11/07, BC 11/09 negative Echo with AV vegetation Not surgical candidate for redo valve Antibiotics PCN Gentamicin Lines PICC - 11/18 Past Medical History Hospitalization from October to December 2015 for infective endocarditis and subsequent complication Hospitalization June 22 to July 23 for CHF and cervical discitis She's had CVA with subarachnoid hemorrhage, embolic lesions to the brain lungs and spleen as a result of her endocarditis Known IV drug use, patient states last time she used was prior to her hospitalization in August 2016 Bilateral sacroiliitis CVA with residual left-sided hemiplegia Past Surgical History Surgery on her discitis last July 09, 2016 AVR, MVR with tissue valve September 07, 2016 Allergies: Coded Allergies: *MDRO Multi-Drug Resistant Organism (Verified Adverse Reaction, Unknown, ) MRSA PCR screen POSITIVE- 10/18/2015 & 08/12/16 MRSA (urine, blood, 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 Vital Signs Date Time Temp Pulse Resp B/P Pulse Ox O2 Delivery O2 Flow Rate FiO2 11/23/16 10:18 98 Nasal Cannula 2.00 11/23/16 08:30 Room Air 11/23/16 08:00 97.5 118 20 106/84 98 11/23/16 07:31 98 21 11/23/16 04:03 116 11/23/16 04:00 97.4 119 16 95/70 99 11/23/16 00:00 97.6 117 16 107/71 92 11/22/16 23:30 18 11/22/16 22:22 97.5 121 18 100/69 100 11/22/16 22:15 Room Air 11/22/16 20:07 97 11/22/16 20:00 97.7 118 20 90/71 98 11/22/16 16:00 97.3 124 20 104/63 95 11/22/16 12:00 97.2 114 16 113/75 98 11/22/16 11/22/16 11/23/16 15:00 23:00 07:00 Intake Total 360 ml 120 ml Output Total 900 ml 150 ml Balance -540 ml -30 ml Intake Oral 360 ml 120 ml Output Urine Total 900 ml 150 ml # Bowel Movements 0 0 . Laboratory Tests Test 11/21/16 11/22/16 16:09 05:30 Sodium Level 138 MEQ/L 138 MEQ/L Potassium Level 4.3 MEQ/L 4.5 MEQ/L Chloride Level 103 MEQ/L 103 MEQ/L Carbon Dioxide Level 21.0 MEQ/L 22.1 MEQ/L Anion Gap 14 MEQ/L 13 MEQ/L Blood Urea Nitrogen 32 MG/DL 29 MG/DL Creatinine 1.01 MG/DL 0.79 MG/DL Estimat Glomerular Filtration 66 ML/MIN 87 ML/MIN Rate Random Glucose 116 MG/DL 88 MG/DL Calcium Level 8.6 MG/DL 8.8 MG/DL Imaging Chest X-Ray 11/18/16 0000 Signed Impressions: Service Date/Time: Friday, November 18, 2016 14:28 - CONCLUSION: 1. Interval placement of right-sided PICC line. 2. Hazy opacity remains in the perihilar regions and both lung bases which appears mildly improved. This may represent mild pulmonary edema. 3. Probable small left effusion. Bertin Segura MD Chest X-Ray 11/18/16 0000 Signed Impressions: Service Date/Time: Friday, November 18, 2016 07:54 - CONCLUSION: Cardiomegaly with bilateral pulmonary edema slightly more prominent. Abram Reyes MD Head CT 11/16/16 1423 Signed Impressions: Service Date/Time: Wednesday, November 16, 2016 15:37 - CONCLUSION: Evolving parenchymal hemorrhage left orbital frontal region as described above, slightly smaller in the interval. Bennie Yanez MD FACR Chest X-Ray 11/08/16 0600 Signed Impressions: Service Date/Time: October 02:25 - CONCLUSION: Persistent bibasilar effusions with associated airspace disease. No interval change. Milan Aguilar MD Lower Extremity Ultrasound 11/07/16 0000 Signed Impressions: Service Date/Time: Monday, November 07, 2016 09:33 - CONCLUSION: No DVT of the left lower extremity. Nonspecific subcutaneous edema. Mookie Scales MD Physical Exam GENERAL: awake and alert, NAD SKIN: Cool and moist. No generalized rash HEENT: [place] conjunctivae, no petechia or hemorrhage. No scleral icterus. Moist oral mucosa. NECK: Supple, nontender, no meningeal signs. CARDIOVASCULAR: Regular rate and rhythm. There is a systolic murmur heard on the whole left precordium and base of the heart. No pericardial rub heard. RESPIRATORY: Coarse breath sounds bilaterally. Decreased breath sounds at the bases. GASTROINTESTINAL: Abdomen soft, non-tender, nondistended. Bowel sounds are present and normoactive. No organomegaly. No guarding. MUSCULOSKELETAL: Extremities without clubbing, cyanosis, warm and well perfused. No calf tenderness. Negative Homans sign bilaterally. NEUROLOGICAL: Awake and alert. L hemiparesis, has good movement in her LLE, and about 3/5 in her LUE PSYCH: Cooperative : Carter cath in place, urine looks clear LINE: no evidence of infection Assessment & Plan Remarks IMPRESSION Respiratory failure, resolved - due to CHF - stable post extubation Has bilateral effusions AV IE PVE, C/S Strep viridans New hemorrhagic CVA S/P AVR and MVR for severe AI and MR due to IE Episode of IE last year with complications Known IVDU Diarrhea RECOMMENDATION Continue IV PCN - aim for 6-8 weeks from last (+) BC - January 01 is 8 weeks from last (+) BC Continue Gentamicin, follow creat closely - give at least 2 weeks - give till November 27 Monitor progress Labs weekly while on Abx: CBC, creat, LFT Clinically doing well from ID standpoint She will need chronic oral suppressive Abx after she finishes her IV Abx Kenia Parson MD Nov 23, 2016 11:02
[2016-11-23 15:39] LABS: MAGNESIUM 2.1 MG/DL (1.5-2.5)
--- NOTE | 2016-11-23 16:18 | EC ---
Study Study Date:11/23/2016 STUDY CONCLUSIONS SUMMARY - Left ventricle: The cavity size was dilated. Wall thickness was normal. Systolic function was severely reduced. The estimated ejection fraction was 15%. There were no regional wall motion abnormalities. - Aortic valve: A bioprosthesis was present. Trace regurgitation. - Mitral valve: A bioprosthesis was present. Mild regurgitation. - Left atrium: The atrium was mildly dilated. - Tricuspid valve: Mild-moderate regurgitation. - Pulmonic valve: Moderate regurgitation. - Pulmonary arteries: Systolic pressure was mildly increased. PA peak pressure: 40mm Hg (S). If LV function is below 40, please consider prescribing an ACEI or ARB or document rationale for non-use. PROCEDURE DATA STUDY STATUS: Elective. Procedure: Transthoracic echocardiography. Image quality was good. Scanning was performed from the parasternal, apical, and subcostal acoustic windows. Study completion: The patient tolerated the procedure well. Transthoracic echocardiography. M-mode, complete 2D, complete spectral Doppler, and color Doppler. Height: Height: 62in. Weight: Weight: 118.8lb. Body mass index: BMI: 21.8kg/m^2. Body surface area: BSA: 1.53m^2. Patient status: Inpatient. CARDIAC ANATOMY LEFT VENTRICLE: The cavity size was dilated. Wall thickness was normal. Systolic function was severely reduced. The estimated ejection fraction was 15%. There were no regional wall motion abnormalities. AORTIC VALVE: A bioprosthesis was present. Doppler: Transvalvular velocity was within the normal range. There was no stenosis. Trace regurgitation. Valve area: 0.25cm^2 (Vmax). Indexed valve area: 0.16cm^2/m^2 (Vmax). Mean gradient: 31mm Hg (S). Peak gradient: 49mm Hg (S). AORTA: Aortic root: The aortic root was normal in size. MITRAL VALVE: A bioprosthesis was present. Doppler: Transvalvular velocity was within the normal range. There was no evidence for stenosis. Mild regurgitation. Valve area by pressure half-time: 4.15cm^2. Indexed valve area by pressure half-time: 2.71cm^2/m^2. Mean gradient: 4mm Hg (D). Peak gradient: 13mm Hg (D). LEFT ATRIUM: The atrium was mildly dilated. RIGHT VENTRICLE: The cavity size was normal. Wall thickness was normal. PULMONIC VALVE: Doppler: Transvalvular velocity was within the normal range. There was no evidence for stenosis. Moderate regurgitation. Peak gradient: 15mm Hg (S). TRICUSPID VALVE: Structurally normal valve. Doppler: Transvalvular velocity was within the normal range. Mild-moderate regurgitation. PULMONARY ARTERY: The main pulmonary artery was normal-sized. Systolic pressure was mildly increased. RIGHT ATRIUM: The atrium was normal in size. PERICARDIUM: There was no pericardial effusion. SYSTEMIC VEINS: Inferior vena cava: The vessel was normal in size. Patient weight: 118.8lb _Ejection fraction:_ 65-75% _Fractional shortening:_ 32% up to 5Kg 5-11.5Kg 11.6-22.9Kg 23-45Kg 45-57Kg Aortic Root 7-13 <17 13-22 17-27 17-27 LA diam 6-13 <23 24-38 33-47 37-40 RVID 10-17 7-15 7-15 7-18 8-17 LVIDd 12-22 <32 24-38 33-47 37-40 LVPW 2-4 3-6 5-7 6-8 7-8 IVS 2-4 3-6 5-7 6-8 7-8 BASIC MEASUREMENTS ADULT NORMAL Left ventricle LV internal dimension, ED, chordal *57.7 mm 43-52 level, PLAX LV internal dimension, ES, chordal *54.6 mm 23-38 level, PLAX Fractional shortening, chordal level, *5 % >29 PLAX LV posterior wall thickness, ED 7.26 mm IVS/LVPW ratio, ED 1.09 <1.3 Volume, ED, MOD, 1-plane 100 ml Volume, ES, MOD, 1-plane 89 ml Ejection fraction, MOD, 1-plane 11 % Stroke volume, MOD, 1-plane 11 ml Volume index, ED, MOD, 1-plane 65 ml/m^2 Volume index, ES, MOD, 1-plane 58 ml/m^2 Stroke index, MOD, 1-plane 7.2 ml/m^2 Volume, ED, MOD, 2-plane 109 ml Volume, ES, MOD, 2-plane 98 ml Ejection fraction, MOD, 2-plane 10 % Stroke volume, MOD, 2-plane 11 ml Volume index, ED, MOD, 2-plane 71 ml/m^2 Volume index, ES, MOD, 2-plane 64 ml/m^2 Stroke index, MOD, 2-plane 7.2 ml/m^2 Ventricular septum Septal thickness, ED 7.9 mm Aortic valve Leaflet separation 16 mm 15-26 BASIC MEASUREMENTS ADULT NORMAL Aortic valve Leaflet separation 16 mm 15-26 Aorta Root diameter, ED 23 mm 20-37 Left atrium Anterior-posterior dimension, ES *42 mm 19-40 Anterior-posterior dimension index, ES *2.75 cm/m^2 <2.2 LA/aortic root ratio 1.83 DOPPLER MEASUREMENTS ADULT NORMAL Main pulmonary artery Pressure, S *40 mm Hg =30 Aortic valve Peak velocity, S 350 cm/s Mean velocity, S 263 cm/s VTI, S 41.3 cm Mean gradient, S 31 mm Hg Peak gradient, S 49 mm Hg Valve area, Vmax 0.25 cm^2 Valve area index, Vmax 0.16 cm^2/m^2 Mitral valve Mean velocity, D 93.9 cm/s Pressure half-time 53 ms Mean gradient, D 4 mm Hg Peak gradient, D 13 mm Hg Valve area, pressure half-time 4.15 cm^2 Valve area index, pressure half-time 2.71 cm^2/m^2 Maximal regurgitant velocity 295 cm/s Tricuspid valve Regurgitant peak velocity 269 cm/s Peak RV-RA gradient, S 29 mm Hg Maximal regurgitant velocity 269 cm/s Systemic veins Estimated CVP 10 mm Hg Right ventricle RV pressure, S *40 mm Hg <30 Pulmonic valve Peak velocity, S 192 cm/s Peak gradient, S 15 mm Hg Regurgitant velocity, ED 221 cm/s LEGEND: Mean values are shown as u=mean value. Asterisk (*) quiles values outside specified normal range. Prepared and signed by Gilles Palacio [id number]
--- NOTE | 2016-11-23 18:40 | PD.CARD.PN ---
Subjective Subjective Remarks Asked to see the patient again for shortness of breath In speaking the patient and her mother, they feel she is doing better today... does have some shortness of breath over the past few days which is more than her chronic SOB... feels that she gets anxious and this leads to her SOB Objective Medications Current Medications Medications (Trade) Dose Ordered Sig/Nicky Route Start Time Stop Time Status Last Admin (NS Flush) 2 ml UNSCH PRN FLUSH 11/06/16 22:45 (NS Flush) 2 ml BID FLUSH 11/06/16 22:45 11/22/16 21:00 (Tylenol) 650 mg Q4H PRN PO 11/06/16 22:45 (Zofran Inj) 4 mg Q6H PRN IVP 11/06/16 22:45 (Colace) 100 mg Q12H PO 11/06/16 22:45 11/22/16 21:24 (Narcan Inj) 0.4 mg UNSCH PRN IV 11/06/16 22:45 (CeleXA) 40 mg DAILY PO 11/07/16 09:00 11/23/16 08:34 (Colace) 100 mg BID PRN PO 11/06/16 23:00 (Ferrous Sulfate) 325 mg BID PO 11/07/16 09:00 11/23/16 08:35 ([place] 5-325 Mg) 1 tab Q8HR PRN PO 11/06/16 23:00 11/23/16 06:20 (Altace) 2.5 mg DAILY PO 11/07/16 09:00 11/23/16 08:35 (Restoril) 7.5 mg HS PRN PO 11/06/16 23:00 11/22/16 21:24 (Aspirin Chew) 81 mg DAILY PO 11/07/16 09:00 11/23/16 08:35 Pantoprazole Sodium 40 mg 40 mg Q24H IV PUSH 11/07/16 00:00 11/23/16 00:56 (Pfizerpen-G Inj/ NS Inj) 100 ml @ 200 mls/hr Q4H IV 11/09/16 14:00 11/23/16 13:06 Lactobacillus Acidophilus 1 tab 1 tab Q12HR PO 11/09/16 21:00 11/23/16 08:34 (Keppra Inj/NS Inj) 105 ml @ 420 mls/hr Q12H IV 11/09/16 18:00 11/23/16 17:46 Dextrose 25 ml 25 ml UNSCH PRN IV 11/13/16 01:30 (Gentamicin Consult Pharmacy) 0 ml @ 0 mls/hr UNSCH XX 11/14/16 14:04 (Aldactone) 25 mg BID@09,18 PO 11/15/16 18:00 11/23/16 09:54 (Coreg) 3.125 mg Q12HR PO 11/16/16 09:00 11/23/16 08:34 (Lovenox Inj) 40 mg Q24H SQ 11/17/16 10:00 11/23/16 09:49 (KCl) 10 meq DAILY PO 11/18/16 10:45 11/23/16 08:35 Miscellaneous 1 ea 1 ea UNSCH PRN OTHER 11/18/16 10:45 11/18/16 17:21 (Gentamicin Inj/ NS Inj) 101 ml @ 100 mls/hr Q8H IV 11/18/16 16:00 11/27/16 23:00 11/23/16 16:50 (NS Flush) See Protocol DAILY IVF 11/19/16 09:00 11/23/16 08:36 (NS Flush) See Protocol UNSCH PRN IVF 11/18/16 14:45 (Heparin Central Flush) See Protocol DAILY IVF 11/19/16 09:00 11/23/16 08:36 (Heparin Central Flush) See Protocol UNSCH PRN IVF 11/18/16 14:45 (NS Flush) See Protocol UNSCH PRN IVF 11/18/16 14:45 (Lasix Inj) 20 mg BID@09,18 IV PUSH 11/22/16 09:00 11/23/16 08:36 (Ativan) 0.5 mg Q6H PRN PO 11/23/16 11:00 Miscellaneous Information SPECIFIC LAB TO BE ANABELLE... ONCE ONCE XX 11/25/16 04:45 11/25/16 04:46 Vital Signs / I&O Vital Signs Date Time Temp Pulse Resp B/P Pulse Ox O2 Delivery O2 Flow Rate FiO2 11/23/16 16:00 98.1 101 22 84/58 100 84/72 11/23/16 12:00 97.4 104 22 86/62 99 90/80 11/23/16 10:18 98 Nasal Cannula 2.00 11/23/16 08:30 Room Air 11/23/16 08:00 97.5 118 20 106/84 98 11/23/16 07:31 98 21 11/23/16 04:03 116 11/23/16 04:00 97.4 119 16 95/70 99 11/23/16 00:00 97.6 117 16 107/71 92 11/22/16 23:30 18 11/22/16 22:22 97.5 121 18 100/69 100 11/22/16 22:15 Room Air 11/22/16 20:07 97 11/22/16 20:00 97.7 118 20 90/71 98 I/O 11/22/16 11/22/16 11/22/16 11/23/16 11/23/16 11/23/16 07:00 15:00 23:00 07:00 15:00 23:00 Intake Total 240 ml 360 ml 120 ml 480 ml Output Total 1000 ml 900 ml 150 ml 400 ml Balance -760 ml -540 ml -30 ml 80 ml Intake Oral 240 ml 360 ml 120 ml 480 ml Output Urine Total 1000 ml 900 ml 150 ml 400 ml # Bowel Movements 0 0 0 3 Physical Exam GENERAL: Chronically ill appearing, NAD, AAOx3 SKIN: Warm and dry. HEAD: Atraumatic. Normocephalic. EYES: Pupils equal and round. No scleral icterus. No injection or drainage. ENT: No nasal bleeding or discharge. Mucous membranes pink and moist. NECK: Trachea midline. No JVD. CARDIOVASCULAR: Regular rate and rhythm. RESPIRATORY: No accessory muscle use. Decreased breath sounds bilaterally GASTROINTESTINAL: Abdomen soft, non-tender, nondistended. Hepatic and splenic margins not palpable. MUSCULOSKELETAL: Extremities without clubbing, cyanosis, or edema. No obvious deformities. NEUROLOGICAL: Awake and alert. No obvious cranial nerve deficits. Left sided weakness PSYCHIATRIC: Appropriate mood and affect; insight and judgment normal. Laboratory Laboratory Tests Test 11/23/16 14:45 Phosphorus Level 2.7 MG/DL Magnesium Level 2.1 MG/DL Assessment and Plan Problem List: (1) S/P AVR (aortic valve replacement) (2) S/P MVR (mitral valve replacement) (3) CHF exacerbation (4) Gram-positive bacteremia (5) Acute respiratory failure (6) Prosthetic valve endocarditis (7) Chronic systolic (congestive) heart failure (8) Elevated troponin (9) Anemia (10) Hx of cerebral embolic infarction (11) History of endocarditis (12) history of IV drug abuse (13) Hepatitis C (14) Thrombocytopenia Assessment and Plan 1) Multiple possibilities for SOB Chronic congestive heart failure with cardiomyopathy, does not appear in acute systolic heart failure Possible atelectasis, as she lays in bed all day ? Anxiety, states that SOB centers around the anxiety, per the pt SOB goes away with anxiety medication and nebs Chronic bilateral pleural effusions, consider possible thoracentesis? 2) Echo showing functioning bioprosthetics, EF 15%... no further work up necessary 3) Continue with diuresis as possible 4) Not amendable to further intervention from a CT surgery standpoint per Dr. Meier 5) Will see PRN, call with questions Problem Qualifiers (1) CHF exacerbation: Qualified Code: I50.23 - Acute on chronic systolic congestive heart failure (2) Acute respiratory failure: Qualified Code: J96.01 - Acute respiratory failure with hypoxia (3) Prosthetic valve endocarditis: Qualified Code: T82.6XXA - Prosthetic valve endocarditis, initial encounter (4) Anemia: Qualified Code: D64.9 - Anemia, unspecified type (5) Hepatitis C: Qualified Code: B18.2 - Chronic hepatitis C without hepatic coma Pete Blanc DO Nov 23, 2016 18:40
[2016-11-24] VITALS (11 sets, daily range): BP systolic 94–118; BP diastolic 57–66; PULSE 90–121; RESP 18–26; TEMP 97.3–97.9; O2SAT 95–100
[2016-11-24] MEDS: RESP: IPRATROPIUM 0.5 MG/2.5 ML NEB NEB SCH ×6 (00:14→23:47)
[2016-11-24] MEDS: PENICILLIN G POTASSIUM INJ 3,000,000 UNITS in SODIUM CHLORIDE 0.9% INJ 100 ML IV SCH ×6 (03:15→21:20)
[2016-11-24] MEDS: levETIRAcetam INJ 500 MG in SODIUM CHLORIDE 0.9% INJ 100 ML IV SCH ×2 (05:35→17:00)
[2016-11-24] MEDS: LORazepam 1 MG TAB PO PRN ×2 (06:28→14:46)
[2016-11-24 06:34] LABS: INTERNATIONAL NORMALIZED RATIO 1.7 RATIO; PROTHROMBIN TIME - PATIENT 19.1 SEC (9.8-11.6)
[2016-11-24 06:47] LABS: BICARBONATE 18.1 MEQ/L (21.0-32.0); POTASSIUM 4.6 MEQ/L (3.5-5.1)
[2016-11-24] MEDS: GENTAMICIN INJ 40 MG in SODIUM CHLORIDE 0.9% INJ 100 ML IV SCH ×3 (08:43→23:52)
[2016-11-24] MEDS: FUROSEMIDE 20 MG/2 ML VIAL IV PUSH SCH (08:46)
[2016-11-24] MEDS: POTASSIUM CHLORIDE 10 MEQ CONTROLLED RELEASE TAB PO SCH (08:47)
[2016-11-24] MEDS: SODIUM CHLORIDE 0.9% FLUSH 5 ML FLUSH FLUSH SCH ×2 (08:47→21:00)
[2016-11-24] MEDS: LACTOBACILLUS ACIDOPHILUS TAB PO SCH ×2 (08:47→21:19)
[2016-11-24] MEDS: FERROUS SULFATE 325 MG (65 MG ELEMENTAL IRON) TAB PO SCH ×2 (08:48→21:19)
[2016-11-24] MEDS: CITALOPRAM HYDROBROMIDE 40 MG TAB PO SCH (08:48)
[2016-11-24] MEDS: ASPIRIN 81 MG CHEW TAB PO SCH (08:48)
[2016-11-24] MEDS: DOCUSATE SODIUM 100 MG CAP PO SCH ×2 (08:57→21:20)
[2016-11-24] MEDS: RAMIPRIL 2.5 MG CAP PO SCH (08:57)
[2016-11-24] MEDS: CARVEDILOL 3.125 MG TAB PO SCH ×2 (08:57→21:19)
[2016-11-24] MEDS ORDERED: CITALOPRAM HYDROBROMIDE 40 MG TAB PO SCH (09:00)
--- NOTE | 2016-11-24 09:28 | HHI.FPPN ---
Subjective Remarks Patient seen this morning. No acute events overnight. Slightly tachycardic ( rate in the 100s) with low BPs (MAP in the 70s) this AM. He main complaint today is of continued, substernal chest pressure. Essentially this is unchanged compared to yesterday. Dyspnea is slightly improved. She thinks supplemental O2 is helping. Per nursing, she has been reluctant to work on mobility. Appears apathetic. Per patient, she does not feel depressed. She does "feel bad because I can't do the things I used to. Denies any F/C. (Freddie Aguilar MD R3) Objective Vitals Vital Signs Date Time Temp Pulse Resp B/P Pulse Ox O2 Delivery O2 Flow Rate FiO2 11/24/16 08:52 95 Nasal Cannula 2.00 11/24/16 04:03 100 Nasal Cannula 2.00 11/24/16 04:00 97.5 97 18 103/57 100 11/24/16 00:00 97.3 102 18 99 105/60 11/23/16 22:05 103 11/23/16 21:20 Nasal Cannula 2.00 11/23/16 20:00 97.6 100 18 82/40 100 11/23/16 19:22 100 Nasal Cannula 2.00 11/23/16 18:38 90/60 11/23/16 16:00 98.1 101 22 84/58 100 84/72 11/23/16 12:00 97.4 104 22 86/62 99 90/80 11/23/16 10:18 98 Nasal Cannula 2.00 I/O 11/23/16 11/23/16 11/23/16 11/24/16 11/24/16 11/24/16 07:00 15:00 23:00 07:00 15:00 23:00 Intake Total 120 ml 480 ml 200 ml 100 ml Output Total 150 ml 400 ml 100 ml 100 ml Balance -30 ml 80 ml 100 ml 0 ml Intake Oral 120 ml 480 ml 200 ml 100 ml Output Urine Total 150 ml 400 ml 100 ml 100 ml # Bowel Movements 0 3 1 1 (Freddie Aguilar MD R3) Result Diagram: 11/20/16 1025 11/24/16 0545 Objective Remarks GENERAL: Mild distress 2/2 SOB. SKIN: Warm and dry. has FR anterior brachial PICC in place. no signs of infection HEENT: AT/NC. Pupils equal and round. Mild scleral icterus. MMM. HEART: RRR with 3/6 LARRY heard throughout; normal peripheral perfusion in bilateral lower extremities. LUNGS: Breathing unlabored. Lungs CTAB. No adventitious sounds. ABDOMEN: Soft, ND. Bruises present in LLQ from injections. : Carter in place with [place] colored urine. EXTREMITIES: No cyanosis or clubbing. No LE edema present. No calf asymmetry. Negative Lola sign. NEURO: Follows commands. Calender Let Off Operator right hand and wiggles all toes. Able to lift right upper and lower extremities against resistance. Some upper and lower extremity movement against gravity on the left. Left wrist brace in place. 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 Blood cultures growing Strep viridans. Critical care consulted, now signed off. Infectious disease managing antibiotic coverage. Cardiology and CT surgery consulted; patient not a candidate for a second valve replacement since she already has both MV and AV replaced in September and there is a question of current drug use. Patient had a new-onset seizure with respiratory failure on and was subsequently intubated. MRI showing mass with surrounding hemorrhage of left frontal lobe which worsened slightly on follow up. Neurology and neurosurgery consulted. Palliative care now on board, as well. Family currently wishes to continue aggressive care. She is now s/p extubation 11/13. Moved from ICU to med-surg floor 11/15. CT brain 11/16 shows mild improvement of left frontal hemorrhage. Discharge Planning Plan for DC to rehab. Patient improving with diuresis and clear for DC to rehab , from medicine perspective. [facility] has assessed and states she needs improved strength before they will accept. Still requires mod assist with transfers, per PT. Will further discuss with CM on Saturday. Palliative care assisting with goals of care. Needs IV PCN until 01/01/2017, likely with lifelong PO antibiotic ppx to follow. Defer to ID. Will discuss with Dr. Pires (Freddie Aguilar MD R3) Attending Attestation Patient seen and examined. Case reviewed and discussed with the resident team. Agree with plan of care as discussed with me and documented in the resident note. unsure what her new baseline will be after her recent CVAs and bleed plus endocarditis (Gladys Pires MD) Problem List: (1) Endocarditis Status: Acute Plan: Blood cultures growing step viridans. 2D echo suggestive of AV vegetation. - Repeat blood cultures on 11/09 show no growth - ID managing antibiotics * Continue PCN (11/09-). Per ID, cont until 01/01. * Gentamycin (11/15-) for synergy. Per ID, cont until 11/27. -cards and cards surgery have evaluated. Not a candidate for repeat cardiac surgery. Cultures: 11/09 Blood- Negative x5 days 11/07 Blood (Linex2 and Peripheralx2)- Strep Viridans; resistant to Erythromycin (2) CHF exacerbation Status: Acute Plan: 11/18- Repeat CXR obtained- mildly increased pulmonary edema. No adventitious sounds on exam today. Doing well on supplemental O2. BUN up to 39 this AM (BUN/Cr ~40:1). -repeat echo 11/23 shows no acute changes. -Continue home ramipril and carvedilol with hold parameters (hold for BP <100/60 ). -Continue Spironolactone 25mg PO BID and switch lasix to 30 mg PO BID, given bump in BUN today. -oral potassium supplementation at 10mg -PRN atrovent for SOB. -incentive spirometry and acapella -1.5L fluid restriction with 2g sodium restriction -supplemental O2 1-2L for cardiogenic dyspnea -[facility] has reassessed patient. Appreciate their care. Continue with diuresis, as tolerated. Consider therapeutic thoracentesis for persistent pleural effusion. (3) Dyspnea Status: Acute Plan: Mild improvement from yesterday. Likely a chronic issue related to CHF/ recurrent endocarditis. -echo shows no significant change, as above -on atrovent. DC scheduled treatments and give q2 PRN SOB. -? anxiety contributing. Will give PRN ativan. -patient unable to perform peak flow yesterday 2/2 weakness, per respiratory History: -CTA and bl LE doppler negative 11/21 (4) Cerebrovascular accident, embolic Status: Acute Plan: -Continue to follow coags. Warfarin on hold 2/2 intracranial bleeding. -INR 1.7 today. -Neurosurgery consulted: Rashad for sz ppx. -OT/PT -Keep perfusion pressure >65 -Continue 81 mg ASA -Low dose Lovenox -Plan to rescan in 4 weeks or sooner if clinically indicated -left wrist splint to keep in neutral position -OOB with assistance (specifically, edge of bed BID; transfer to chair daily) History: Head CT 11/16- Evolving parenchymal hemorrhage L orbital frontal region as described above CT 11/13 showed left enlarging frontal lobe hematoma. New R parietal hemorrhage MRA 11/10 showing abrupt decrease in flow at M2 branches of right MCA MRI 11/09 showing widespread bilateral infarcts and focal intra-axial mass with surrounding hemorrhage of the left frontal lobe (5) Seizure Status: Acute Plan: Continue seizure ppx, as above. (6) Hepatitis C Status: Chronic Plan: Chronic issue. Monitor LFTs weekly. (7) Anxiety Status: Chronic Plan: will have low doses of ativan (8) Dietary counseling and surveillance Status: Acute Plan: Diet: heart healthy with thin liquids per speech. 1.5L fluid and 2g sodium restriction. Fluids: SLIV DVT ppx: SCDs. Low dose Lovenox restarted. (Freddie Aguilar MD R3) Problem Qualifiers (1) Endocarditis: Qualified Code: I33.0 - Acute bacterial endocarditis (2) CHF exacerbation: Qualified Code: I50.23 - Acute on chronic systolic congestive heart failure (3) Dyspnea: Qualified Code: R06.02 - Shortness of breath (4) Cerebrovascular accident, embolic: (5) Hepatitis C: Qualified Code: B18.2 - Chronic hepatitis C without hepatic coma Freddie Aguilar MD R3 Nov 24, 2016 09:28 Gladys Pires MD Nov 26, 2016 09:21
[2016-11-24] MEDS ORDERED: PILL SPLITTER OTHER PRN (09:30)
[2016-11-24] MEDS: ENOXAPARIN SODIUM 40 MG/0.4 ML SYRINGE SQ SCH (09:47)
[2016-11-24] MEDS: SPIRONOLACTONE 25 MG TAB PO SCH ×2 (10:33→17:00)
[2016-11-24] MEDS: FUROSEMIDE 20 MG TAB PO SCH ×2 (10:33→17:00)
[2016-11-24] MEDS: ACETAMINOPHEN/HYDROcodone 325 MG/5 MG TAB PO PRN ×2 (10:33→19:20)
[2016-11-24] MEDS: TEMAZEPAM 7.5 MG CAP PO PRN (21:19)
[2016-11-24] MEDS ORDERED: PHARMACY ORDERED LAB XX ONE (23:45)
[2016-11-24] MEDS: PANTOPRAZOLE SODIUM 40 MG VIAL IV PUSH SCH (23:52)
[2016-11-25] VITALS (9 sets, daily range): BP systolic 80–105; BP diastolic 52–74; PULSE 62–106; RESP 18–36; TEMP 97.1–98.3; O2SAT 87–99
[2016-11-25] MEDS: PENICILLIN G POTASSIUM INJ 3,000,000 UNITS in SODIUM CHLORIDE 0.9% INJ 100 ML IV SCH ×6 (02:00→21:42)
[2016-11-25] MEDS: RESP: IPRATROPIUM 0.5 MG/2.5 ML NEB NEB SCH (03:29)
[2016-11-25] MEDS: levETIRAcetam INJ 500 MG in SODIUM CHLORIDE 0.9% INJ 100 ML IV SCH ×2 (05:19→16:25)
[2016-11-25 07:10] LABS: BICARBONATE 17.3 MEQ/L (21.0-32.0); POTASSIUM 4.7 MEQ/L (3.5-5.1)
[2016-11-25] MEDS: FERROUS SULFATE 325 MG (65 MG ELEMENTAL IRON) TAB PO SCH ×2 (08:58→21:42)
[2016-11-25] MEDS: CARVEDILOL 3.125 MG TAB PO SCH ×2 (08:58→21:00)
[2016-11-25] MEDS: FUROSEMIDE 20 MG TAB PO SCH ×2 (08:58→17:58)
[2016-11-25] MEDS: ASPIRIN 81 MG CHEW TAB PO SCH (08:58)
[2016-11-25] MEDS: SPIRONOLACTONE 25 MG TAB PO SCH ×2 (08:58→17:58)
[2016-11-25] MEDS: POTASSIUM CHLORIDE 10 MEQ CONTROLLED RELEASE TAB PO SCH (08:58)
[2016-11-25] MEDS: ACETAMINOPHEN/HYDROcodone 325 MG/5 MG TAB PO PRN (08:58)
[2016-11-25] MEDS: RAMIPRIL 2.5 MG CAP PO SCH (08:58)
[2016-11-25] MEDS: LACTOBACILLUS ACIDOPHILUS TAB PO SCH ×2 (08:58→21:42)
[2016-11-25] MEDS: CITALOPRAM HYDROBROMIDE 40 MG TAB PO SCH (08:59)
[2016-11-25] MEDS: SODIUM CHLORIDE 0.9% FLUSH 5 ML FLUSH FLUSH SCH ×2 (08:59→21:00)
--- NOTE | 2016-11-25 09:10 | HHI.FPPN ---
Subjective Remarks Patient seen this morning. No acute events overnight. Per review of EMR, does have desat to 87% overnight. Apparently has not been keeping O2 on overnight. Main complaint this AM is of continued, substernal chest pain. She feels SOB is improving. She states appetite and energy level both decreased. She does not know why. Denies feeling depressed. No F/C. (Freddie Aguilar MD R3) Objective Vitals Vital Signs Date Time Temp Pulse Resp B/P Pulse Ox O2 Delivery O2 Flow Rate FiO2 11/25/16 04:45 98.2 62 18 85/53 87 96/53 11/25/16 00:00 98.3 106 18 105/60 92 11/24/16 21:10 Nasal Cannula 2.00 11/24/16 20:00 97.9 112 26 118/66 98 11/24/16 20:00 109 11/24/16 19:56 96 Nasal Cannula 2.00 11/24/16 16:08 97.6 90 18 102/62 96 11/24/16 12:08 97.8 92 18 98/64 96 11/24/16 11:22 121 I/O 11/24/16 11/24/16 11/24/16 11/25/16 11/25/16 11/25/16 07:00 15:00 23:00 07:00 15:00 23:00 Intake Total 100 ml 564 ml 240 ml 480 ml Output Total 100 ml 600 ml 600 ml Balance 0 ml -36 ml 240 ml -120 ml Intake Oral 100 ml 360 ml 240 ml 480 ml IV Total 204 ml Output Urine Total 100 ml 600 ml 600 ml # Voids 1 # Bowel Movements 1 0 1 (Freddie Aguilar MD R3) Result Diagram: 11/25/16 0517 Objective Remarks GENERAL: frail-appearing, female patient. In NAD. SKIN: Warm and dry. has FR anterior brachial PICC in place. no signs of infection HEENT: AT/NC. Pupils equal and round. Mild scleral icterus. MMM. HEART: RRR with 3/6 LARRY heard throughout; normal peripheral perfusion in bilateral lower extremities. LUNGS: Breathing unlabored. Worsening, wet-sounding rales at left lung base. No other obvious adventitious sounds. ABDOMEN: Soft, ND. Bruises present in LLQ from injections. : Carter in place with [place] colored urine. EXTREMITIES: No cyanosis or clubbing. Trace upper and lower extremity edema. Face is noticeably more puffy this AM. No calf asymmetry. Negative Lola sign. NEURO: Follows commands. 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 Able to lift right upper and lower extremities against resistance. Some upper and lower extremity movement against gravity on the left. Left wrist brace in place. 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 Blood cultures growing Strep viridans. Critical care consulted, now signed off. Infectious disease managing antibiotic coverage. Cardiology and CT surgery consulted; patient not a candidate for a second valve replacement since she already has both MV and AV replaced in September and there is a question of current drug use. Patient had a new-onset seizure with respiratory failure on and was subsequently intubated. MRI showing mass with surrounding hemorrhage of left frontal lobe which worsened slightly on follow up. Neurology and neurosurgery consulted. Palliative care now on board, as well. Family currently wishes to continue aggressive care. She is now s/p extubation 11/13. Moved from ICU to med-surg floor 11/15. CT brain 11/16 shows mild improvement of left frontal hemorrhage. She c/o worsening dyspnea 11/21. Ddimer elevated. CTA and bl LE dopplers negative. She is now being treated for continue dyspnea. Discharge Planning Plan for DC to rehab. Patient improving with diuresis and clear for DC to rehab , from medicine perspective. [facility] has assessed and states she needs improved strength before they will accept. Still requires mod assist with transfers, per PT. Will further discuss with CM on Saturday. Palliative care assisting with goals of care. Needs IV PCN until 01/01/2017, likely with lifelong PO antibiotic ppx to follow. Defer to ID. Will discuss with Dr. Pires (Freddie Aguilar MD R3) Attending Attestation Patient seen and examined. Case reviewed and discussed with the resident team. Agree with plan of care as discussed with me and documented in the resident note. she had no complaints of chest pain when I saw her (Gladys Pires MD) Problem List: (1) Dyspnea Status: Acute Plan: Mild improvement from yesterday. Likely a chronic issue related to CHF/ recurrent endocarditis. -echo shows no significant change, as above -on atrovent. DC scheduled treatments and give q2 PRN SOB. -? anxiety contributing. Will give PRN ativan. -patient unable to perform peak flow 2/2 weakness, per respiratory History: -CTA and bl LE doppler negative 11/21 (2) Endocarditis Status: Acute Plan: Blood cultures growing step viridans. 2D echo suggestive of AV vegetation. - Repeat blood cultures on 11/09 show no growth - ID managing antibiotics * Continue PCN (11/09-). Per ID, cont until 01/01. * Gentamycin (11/15-) for synergy. Per ID, cont until 11/27. -cards and cards surgery have evaluated. Not a candidate for repeat cardiac surgery. Cultures: 11/09 Blood- Negative x5 days 11/07 Blood (Linex2 and Peripheralx2)- Strep Viridans; resistant to Erythromycin (3) CHF exacerbation Status: Acute Plan: 11/18- Repeat CXR obtained- mildly increased pulmonary edema. No adventitious sounds on exam today. Doing well on supplemental O2. BUN up to 36 this AM (BUN/Cr ~40:1). -repeat echo 11/23 shows no acute changes. -Continue home ramipril and carvedilol with hold parameters (hold for BP <100/60 ). -Continue Spironolactone 25mg PO BID and lasix 30 mg PO BID. Will give 20 mg IV lasix x1 this AM, given worsening rales at left lung base and increased peripheral edema this AM. Repeat CXR if worsening SOB today. -oral potassium supplementation at 10mg -PRN atrovent for SOB. -incentive spirometry and acapella -1.5L fluid restriction with 2g sodium restriction -supplemental O2 1-2L for cardiogenic dyspnea. Will use vaseline for nasal irritation. -cards has reassessed patient. Appreciate their care. Continue with diuresis, as tolerated. Consider pulm consult for therapeutic thoracentesis, given persistent pleural effusion. (4) Cerebrovascular accident, embolic Status: Acute Plan: -Continue to follow coags. Warfarin on hold 10/04 intracranial bleeding. -INR 1.7 on 11/24. -Neurosurgery consulted: Rashad for sz ppx. -OT/PT -Keep perfusion pressure >65 -Continue 81 mg ASA -Low dose Lovenox -Plan to rescan in 4 weeks or sooner if clinically indicated -left wrist splint to keep in neutral position -OOB with assistance (specifically, edge of bed BID; transfer to chair daily) History: Head CT 11/16- Evolving parenchymal hemorrhage L orbital frontal region as described above CT 11/13 showed left enlarging frontal lobe hematoma. New R parietal hemorrhage MRA 11/10 showing abrupt decrease in flow at M2 branches of right MCA MRI 11/09 showing widespread bilateral infarcts and focal intra-axial mass with surrounding hemorrhage of the left frontal lobe (5) Seizure Status: Acute Plan: Continue seizure ppx, as above. (6) Hepatitis C Status: Chronic Plan: Chronic issue. Monitor LFTs weekly. (7) Anxiety Status: Chronic Plan: will have low doses of ativan (8) Depression Status: Acute Plan: Decreased appetite and lethargy over the past several days. I am concerned her sxs are related, at least in part, to depression. -cont citalopram, as patient has good response with this medication in the past -consider addition of remeron for appetite stimulation if no improvement with above (9) Dietary counseling and surveillance Status: Acute Plan: Diet: heart healthy with thin liquids per speech. 1.5L fluid and 2g sodium restriction. Fluids: SLIV DVT ppx: SCDs. Low dose Lovenox restarted. (Freddie Aguilar MD R3) Problem Qualifiers (1) Dyspnea: Qualified Code: R06.02 - Shortness of breath (2) Endocarditis: Qualified Code: I33.0 - Acute bacterial endocarditis (3) CHF exacerbation: Qualified Code: I50.23 - Acute on chronic systolic congestive heart failure (4) Cerebrovascular accident, embolic: (5) Hepatitis C: Qualified Code: B18.2 - Chronic hepatitis C without hepatic coma (6) Depression: Qualified Code: F33.0 - Mild episode of recurrent major depressive disorder Freddie Aguilar MD R3 Nov 25, 2016 09:10 Gladys Pires MD Nov 26, 2016 09:31
[2016-11-25] MEDS: RESP: IPRATROPIUM 0.5 MG/2.5 ML NEB NEB PRN ×2 (09:34→14:20)
[2016-11-25] MEDS ORDERED: FUROSEMIDE 20 MG/2 ML VIAL IV PUSH ONE (10:00)
[2016-11-25] MEDS: ENOXAPARIN SODIUM 40 MG/0.4 ML SYRINGE SQ SCH (10:05)
[2016-11-25] MEDS: DOCUSATE SODIUM 100 MG CAP PO SCH ×2 (10:06→21:43)
[2016-11-25] MEDS: PETROLATUM 30 GM TUBE TOPICAL SCH (10:06)
[2016-11-25 11:21] LABS: ALT (GPT) 38 U/L (10-53); ANION GAP 14 MEQ/L (5-15); AST (GOT) 53 U/L (15-37); BICARBONATE 16.6 MEQ/L (21.0-32.0); BLOOD UREA NITROGEN 36 MG/DL (7-18); CHLORIDE 103 MEQ/L (98-107); GLOMERULAR FILTRATION RATE 76 ML/MIN (>89); POTASSIUM 4.8 MEQ/L (3.5-5.1); SODIUM (NA) 134 MEQ/L (136-145)
[2016-11-25 11:23] LABS: ALKALINE PHOSPHATASE 103 U/L (45-117); TOTAL BILIRUBIN ADULT 2.8 MG/DL (0.2-1.0)
[2016-11-25] MEDS: LORazepam 1 MG TAB PO PRN (14:11)
[2016-11-25] MEDS: MIRTAZAPINE 15 MG TAB PO SCH (21:42)
[2016-11-26] VITALS (7 sets, daily range): BP systolic 92–100; BP diastolic 63–81; PULSE 96–110; RESP 16–22; TEMP 96.1–98.4; O2SAT 98–100
[2016-11-26] MEDS: PENICILLIN G POTASSIUM INJ 3,000,000 UNITS in SODIUM CHLORIDE 0.9% INJ 100 ML IV SCH ×6 (00:54→23:24)
[2016-11-26] MEDS: PANTOPRAZOLE SODIUM 40 MG VIAL IV PUSH SCH ×2 (00:54→23:24)
[2016-11-26] MEDS: levETIRAcetam INJ 500 MG in SODIUM CHLORIDE 0.9% INJ 100 ML IV SCH ×2 (05:30→17:25)
[2016-11-26] MEDS: SODIUM CHLORIDE 0.9% FLUSH 5 ML FLUSH FLUSH PRN (05:31)
[2016-11-26 06:52] LABS: POTASSIUM 4.4 MEQ/L (3.5-5.1); RANDOM GENTAMICIN 1.4 MCG/ML
[2016-11-26] MEDS: CARVEDILOL 3.125 MG TAB PO SCH ×2 (09:00→20:23)
[2016-11-26] MEDS: PETROLATUM 30 GM TUBE TOPICAL SCH (09:00)
[2016-11-26] MEDS: RAMIPRIL 2.5 MG CAP PO SCH (09:00)
[2016-11-26] MEDS: SODIUM CHLORIDE 0.9% FLUSH 5 ML FLUSH FLUSH SCH ×2 (09:00→20:23)
[2016-11-26] MEDS: LACTOBACILLUS ACIDOPHILUS TAB PO SCH ×2 (09:00→20:22)
[2016-11-26] MEDS: POTASSIUM CHLORIDE 10 MEQ CONTROLLED RELEASE TAB PO SCH (09:00)
[2016-11-26] MEDS: SPIRONOLACTONE 25 MG TAB PO SCH ×2 (09:00→17:26)
--- NOTE | 2016-11-26 10:08 | HHI.FPPN ---
Subjective Remarks Patient seen this morning. No acute events overnight. Low BPs this morning (MAP in the 60s). Other vitals WNL. Ms. Barrios reports SOB slightly improved compared to yesterday. CP mildly improved, as well. Still feels weak. Has not been tolerating sitting on edge of bed or with transfers over the weekend. No other complaints today. Denies any F/C. (Freddie Aguilar MD R3) Objective Vitals Vital Signs Date Time Temp Pulse Resp B/P Pulse Ox O2 Delivery O2 Flow Rate FiO2 11/26/16 08:00 98.2 101 16 99/73 99 11/26/16 04:00 97.3 100 18 94/70 100 11/26/16 00:00 97.1 96 18 92/63 100 11/26/16 00:00 Nasal Cannula 2.00 11/25/16 20:00 97.1 93 18 88/60 99 11/25/16 20:00 Nasal Cannula 2.00 11/25/16 20:00 92 11/25/16 17:58 88/56 11/25/16 17:43 98 Nasal Cannula 2.00 11/25/16 16:00 98 Room Air 11/25/16 16:00 97.7 92 30 80/52 98 11/25/16 12:00 97.9 100 24 98/74 99 11/25/16 12:00 99 Nasal Cannula 2.00 Humidified I/O 11/25/16 11/25/16 11/25/16 11/26/16 11/26/16 11/26/16 07:00 15:00 23:00 07:00 15:00 23:00 Intake Total 480 ml 424 ml 240 ml 100 ml Output Total 600 ml 750 ml 0 ml 450 ml Balance -120 ml -326 ml 240 ml -350 ml Intake Oral 480 ml 220 ml 240 ml 100 ml IV Total 204 ml Output Urine Total 600 ml 750 ml 0 ml 450 ml # Voids 1 # Bowel Movements 0 0 (Freddie Aguilar MD R3) Result Diagram: 11/26/16 0536 Objective Remarks GENERAL: frail-appearing, female patient. In NAD. SKIN: Warm and dry. has FR anterior brachial PICC in place. no signs of infection HEENT: AT/NC. Pupils equal and round. Mild scleral icterus. MMM. HEART: RRR with 3/6 LARRY heard throughout; normal peripheral perfusion in bilateral lower extremities. LUNGS: Breathing unlabored. Worsening, wet-sounding rales at left lung base compared to yesterday. No other obvious adventitious sounds. ABDOMEN: Soft, ND. Bruises present in LLQ from injections. : Carter in place with [place] colored urine. EXTREMITIES: No cyanosis or clubbing. Trace upper and lower extremity edema. Face puffy. No calf asymmetry. Negative Lola sign. NEURO: Follows commands. 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 Able to lift right upper and lower extremities against resistance. Some upper and lower extremity movement against gravity on the left. Left wrist brace in place. 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 Blood cultures growing Strep viridans. Critical care consulted, now signed off. Infectious disease managing antibiotic coverage. Cardiology and CT surgery consulted; patient not a candidate for a second valve replacement since she already has both MV and AV replaced in September and there is a question of current drug use. Patient had a new-onset seizure with respiratory failure on and was subsequently intubated. MRI showing mass with surrounding hemorrhage of left frontal lobe which worsened slightly on follow up. Neurology and neurosurgery consulted. Palliative care now on board, as well. Family currently wishes to continue aggressive care. She is now s/p extubation 11/13. Moved from ICU to med-surg floor 11/15. CT brain 11/16 shows mild improvement of left frontal hemorrhage. She c/o worsening dyspnea 11/21. Ddimer elevated. CTA and bl LE dopplers negative. She is now being treated for continued dyspnea and weakness. Discharge Planning Plan for DC to rehab. Strength needs to improve before she can be cleared for DC. Uncertain timeframe for discharge at this point. Palliative care assisting with goals of care. Needs IV PCN until 01/01/2017, likely with lifelong PO antibiotic ppx to follow. Defer to ID. Will discuss with Dr. Pires (Freddie Aguilar MD R3) Attending Attestation Patient seen and examined. Case reviewed and discussed with the resident team. Agree with plan of care as discussed with me and documented in the resident note. unfortunately, she has severe problems with her heart that are un fixable. She is being treated with medicines as much as tolerated. Unfortunately, she is not continuing to improve. She has extreme weakness and cannot even sit up in bed. Her SOB is always there and despite all efforts to diurese her, she does not get better with that. She does not have intrinsic lung disease because of her age and her SOB is cardiac related. (Gladys Pires MD) Problem List: (1) Dyspnea Status: Acute Plan: Mild improvement from yesterday. Likely a chronic issue related to CHF/ recurrent endocarditis. -echo shows no significant change, as above -on atrovent q2 PRN SOB. -? anxiety contributing. Will give PRN ativan. -patient unable to perform peak flow 2/2 weakness, per respiratory History: -CTA and bl LE doppler negative 11/21 (2) Endocarditis Status: Acute Plan: Blood cultures growing step viridans. 2D echo suggestive of AV vegetation. - Repeat blood cultures on 11/09 show no growth - ID managing antibiotics * Continue PCN (11/09-). Per ID, cont until 01/01. * Gentamycin (11/15-) for synergy. Per ID, cont until 11/27. -cards and cards surgery have evaluated. Not a candidate for repeat cardiac surgery. Cultures: 11/09 Blood- Negative x5 days 11/07 Blood (Linex2 and Peripheralx2)- Strep Viridans; resistant to Erythromycin (3) CHF exacerbation Status: Acute Plan: 11/18- Repeat CXR obtained- mildly increased pulmonary edema. No adventitious sounds on exam today. Doing well on supplemental O2. BUN up to 36 this AM (BUN/Cr ~40:1). -left lower lobe rales continue to worsen. Will check CXR. -repeat echo 11/23 shows no acute changes. -Continue home ramipril and carvedilol with hold parameters (hold for MAP <70). -Continue Spironolactone 25mg PO BID and lasix 30 mg PO BID (hold for MAP <70). -oral potassium supplementation at 10mg -PRN atrovent for SOB. -incentive spirometry and acapella -1.5L fluid restriction with 2g sodium restriction -supplemental O2 1-2L for cardiogenic dyspnea. Will use vaseline for nasal irritation. -cards has reassessed patient. Appreciate their care. Continue with diuresis, as tolerated. Consider pulm consult for therapeutic thoracentesis, given persistent pleural effusion. (4) Cerebrovascular accident, embolic Status: Acute Plan: -Continue to follow coags. Warfarin on hold 2/2 intracranial bleeding. -INR 1.7 on 11/24. -Neurosurgery consulted: Rashad for sz ppx. -OT/PT -Keep perfusion pressure >65 -Continue 81 mg ASA -Low dose Lovenox -Plan to rescan in 4 weeks or sooner if clinically indicated -left wrist splint to keep in neutral position -OOB with assistance (specifically, edge of bed BID; transfer to chair daily) History: Head CT 11/16- Evolving parenchymal hemorrhage L orbital frontal region as described above CT 11/13 showed left enlarging frontal lobe hematoma. New R parietal hemorrhage MRA 11/10 showing abrupt decrease in flow at M2 branches of right MCA MRI 11/09 showing widespread bilateral infarcts and focal intra-axial mass with surrounding hemorrhage of the left frontal lobe (5) Seizure Status: Acute Plan: Continue seizure ppx, as above. (6) Hepatitis C Status: Chronic Plan: Chronic issue. Monitor LFTs weekly. (7) Anxiety Status: Chronic Plan: will have low doses of ativan (8) Depression Status: Acute Plan: Decreased appetite and lethargy over the past several days. I am concerned her sxs are related, at least in part, to depression. -cont citalopram, as patient has good response with this medication in the past -consider addition of remeron for appetite stimulation if no improvement with above -further discuss with palliative care today (9) Dietary counseling and surveillance Status: Acute Plan: Diet: heart healthy with thin liquids per speech. 1.5L fluid and 2g sodium restriction. Fluids: SLIV DVT ppx: SCDs. Low dose Lovenox restarted. (Freddie Aguilar MD R3) Problem Qualifiers (1) Dyspnea: Qualified Code: R06.02 - Shortness of breath (2) Endocarditis: Qualified Code: I33.0 - Acute bacterial endocarditis (3) CHF exacerbation: Qualified Code: I50.23 - Acute on chronic systolic congestive heart failure (4) Cerebrovascular accident, embolic: (5) Hepatitis C: Qualified Code: B18.2 - Chronic hepatitis C without hepatic coma (6) Depression: Qualified Code: F33.0 - Mild episode of recurrent major depressive disorder Freddie Agiular MD R3 Nov 26, 2016 10:08 Gladys Pires MD Nov 28, 2016 14:03
[2016-11-26] MEDS: DOCUSATE SODIUM 100 MG CAP PO SCH ×2 (10:45→22:45)
[2016-11-26] MEDS: CITALOPRAM HYDROBROMIDE 40 MG TAB PO SCH (11:04)
[2016-11-26] MEDS: ASPIRIN 81 MG CHEW TAB PO SCH (11:05)
[2016-11-26] MEDS: FERROUS SULFATE 325 MG (65 MG ELEMENTAL IRON) TAB PO SCH ×2 (11:05→20:22)
[2016-11-26] MEDS: FUROSEMIDE 20 MG TAB PO SCH (11:05)
[2016-11-26] MEDS: ENOXAPARIN SODIUM 40 MG/0.4 ML SYRINGE SQ SCH (11:07)
--- NOTE | 2016-11-26 11:07 | RADRPT ---
EXAM DATE/TIME: 11/26/2016 10:22 [facility] COMPARISON: CT PULMONARY ANGIOGRAM, November 21, 2016, 19:20. CHEST SINGLE AP, November 21, 2016, 9:58. INDICATIONS : Shortness of breath; evaluate for pleural effusion. MEDICAL HISTORY : Stroke. Cardiovascular disease. Cerebrovascular disease. Hepatitis C. CVA. Endocarditis. SURGICAL HISTORY : Heart valve repair. ENCOUNTER: Subsequent ACUITY: 3 weeks PAIN SCORE: 0/10 LOCATION: Bilateral chest FINDINGS: Heart remains enlarged. Aortic valvular prosthesis is evident. There is increasing interstitial edema and small bilateral pleural effusions larger on the right than the left. Consolidative changes remain in the left base. PICC line has slipped back up in the jugular vein. This is probably transitory. CONCLUSION: 1. Increasing interstitial edema consistent with worsening congestive failure. 2. Pleural effusion on the right continues to increase in size. Probably occupies approximately one quarter of the right hemithorax. Bennie Yanez MD FACR on November 26, 2016 at 10:58 Board Certified Radiologist. This report was verified electronically.
--- NOTE | 2016-11-26 12:42 | HHI.IDPN ---
Subjective Subjective Remarks Notes reviewed Temps ok On and off SOB, on nasal O2 Has good sats No tinnitus Creatinine ok BC with viridans Strep Last (+) BC 11/07, BC 11/09 negative Echo with AV vegetation Not surgical candidate for redo valve Antibiotics PCN Lines PICC - 11/18 Past Medical History Hospitalization from October to December 2015 for infective endocarditis and subsequent complication Hospitalization June 22 to July 23 for CHF and cervical discitis She's had CVA with subarachnoid hemorrhage, embolic lesions to the brain lungs and spleen as a result of her endocarditis Known IV drug use, patient states last time she used was prior to her hospitalization in August 2016 Bilateral sacroiliitis CVA with residual left-sided hemiplegia Past Surgical History Surgery on her discitis last July 09, 2016 AVR, MVR with tissue valve September 07, 2016 Allergies: Coded Allergies: *MDRO Multi-Drug Resistant Organism (Verified Adverse Reaction, Unknown, ) MRSA PCR screen POSITIVE- 10/18/2015 & 08/12/16 MRSA (urine, blood, 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 Vital Signs Date Time Temp Pulse Resp B/P Pulse Ox O2 Delivery O2 Flow Rate FiO2 11/26/16 08:00 98.2 101 16 99/73 99 11/26/16 04:00 97.3 100 18 94/70 100 11/26/16 00:00 97.1 96 18 92/63 100 11/26/16 00:00 Nasal Cannula 2.00 11/25/16 20:00 97.1 93 18 88/60 99 11/25/16 20:00 Nasal Cannula 2.00 11/25/16 20:00 92 11/25/16 17:58 88/56 11/25/16 17:43 98 Nasal Cannula 2.00 11/25/16 16:00 98 Room Air 11/25/16 16:00 97.7 92 30 80/52 98 11/25/16 11/25/16 11/26/16 15:00 23:00 07:00 Intake Total 424 ml 240 ml 100 ml Output Total 750 ml 0 ml 450 ml Balance -326 ml 240 ml -350 ml Intake Oral 220 ml 240 ml 100 ml IV Total 204 ml Output Urine Total 750 ml 0 ml 450 ml # Bowel Movements 0 0 . Laboratory Tests Test 11/25/16 11/26/16 05:17 05:36 Sodium Level 134 MEQ/L 133 MEQ/L Potassium Level 4.8 MEQ/L 4.4 MEQ/L Chloride Level 103 MEQ/L 101 MEQ/L Carbon Dioxide Level 16.6 MEQ/L 18.0 MEQ/L Anion Gap 14 MEQ/L 14 MEQ/L Blood Urea Nitrogen 36 MG/DL 40 MG/DL Creatinine 0.89 MG/DL 0.89 MG/DL Estimat Glomerular Filtration 76 ML/MIN 76 ML/MIN Rate Random Glucose 92 MG/DL 107 MG/DL Calcium Level 8.9 MG/DL 8.5 MG/DL Total Bilirubin 2.8 MG/DL Aspartate Amino Transf 53 U/L (AST/SGOT) Alanine Aminotransferase 38 U/L (ALT/SGPT) Alkaline Phosphatase 103 U/L Total Protein 7.1 GM/DL Albumin 3.8 GM/DL Imaging Chest X-Ray 11/18/16 0000 Signed Impressions: Service Date/Time: Friday, November 18, 2016 14:28 - CONCLUSION: 1. Interval placement of right-sided PICC line. 2. Hazy opacity remains in the perihilar regions and both lung bases which appears mildly improved. This may represent mild pulmonary edema. 3. Probable small left effusion. Bertin Segura MD Chest X-Ray 11/18/16 0000 Signed Impressions: Service Date/Time: Friday, November 18, 2016 07:54 - CONCLUSION: Cardiomegaly with bilateral pulmonary edema slightly more prominent. Abram Reyes MD Head CT 11/16/16 1423 Signed Impressions: Service Date/Time: Wednesday, November 16, 2016 15:37 - CONCLUSION: Evolving parenchymal hemorrhage left orbital frontal region as described above, slightly smaller in the interval. Bennie Yanez MD FACR Chest X-Ray 11/08/16 0600 Signed Impressions: Service Date/Time: October 02:25 - CONCLUSION: Persistent bibasilar effusions with associated airspace disease. No interval change. Milan Aguilar MD Lower Extremity Ultrasound 11/07/16 0000 Signed Impressions: Service Date/Time: Monday, November 07, 2016 09:33 - CONCLUSION: No DVT of the left lower extremity. Nonspecific subcutaneous edema. Mookie Scales MD Physical Exam GENERAL: awake and alert, NAD SKIN: Cool and moist. No generalized rash HEENT: [place] conjunctivae, no petechia or hemorrhage. No scleral icterus. Moist oral mucosa. NECK: Supple, nontender, no meningeal signs. CARDIOVASCULAR: Regular rate and rhythm. There is a systolic murmur heard on the whole left precordium and base of the heart. No pericardial rub heard. RESPIRATORY: Coarse breath sounds bilaterally. Decreased breath sounds at the bases. GASTROINTESTINAL: Abdomen soft, non-tender, nondistended. Bowel sounds are present and normoactive. No organomegaly. No guarding. MUSCULOSKELETAL: Extremities without clubbing, cyanosis, warm and well perfused. No calf tenderness. Negative Homans sign bilaterally. NEUROLOGICAL: Awake and alert. L hemiparesis, has good movement in her LLE, and about 3/5 in her LUE PSYCH: Cooperative : Carter cath in place, urine looks clear LINE: no evidence of infection Assessment & Plan Remarks IMPRESSION Respiratory failure, resolved - due to CHF - stable post extubation Has bilateral effusions AV IE PVE, C/S Strep viridans New hemorrhagic CVA S/P AVR and MVR for severe AI and MR due to IE Episode of IE last year with complications Known IVDU Diarrhea RECOMMENDATION Continue IV PCN - aim for 6-8 weeks from last (+) BC - January 01 is 8 weeks from last (+) BC Monitor progress Labs weekly while on Abx: CBC, creat, LFT Consider tap of pleural effusions which should help with her SOB Clinically doing well from ID standpoint She will need chronic oral suppressive Abx after she finishes her IV Abx Kenia Parson MD Nov 26, 2016 12:42
[2016-11-26] MEDS ORDERED: FUROSEMIDE 20 MG/2 ML VIAL IV PUSH ONE (13:00)
--- NOTE | 2016-11-26 16:19 | MB ---
cc: CHNAEL BUCHANAN DATE OF CONSULTATION: 11/26/2016 REASON FOR CONSULTATION: Pleural effusion. HISTORY OF PRESENT ILLNESS Mrs. 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 The patient continues to use IV drugs post discharge, admitted with hypoxic hypercarbic respiratory failure and septic shock, gradually recovered, positive blood culture for viridans endocarditis. The patient is followed by infectious disease for the same. She had evidence of congestive heart failure, fluid overload upon presentation. CT scan of the chest is without evidence of a pulmonary embolization, however, bilateral pleural effusions are present, more on right than on the left. For the past medical, social, family history, kindly review numerous medical records and documentation in the electronic records. PHYSICAL EXAMINATION GENERAL: The patient is alert, weak. VITAL SIGNS: Temperature 96 degrees Fahrenheit, pulse 90, respiration 20, blood pressure 100/80, oxygen saturation 100% on 2 liters oxygen nasal cannula. HEENT: Exam unremarkable. Eyes without icterus. NECK: Without adenopathy or thyroid enlargement. CHEST: Decreased breath sounds at the bases. CARDIAC: 2/6 systolic murmur left sternal border. ABDOMEN: Lax. Liver two fingerbreadths below the right costal margin. EXTREMITIES: No clubbing, cyanosis. Trace edema. LABORATORY DATA White count 11,000, hemoglobin 9.9, hematocrit 32, sodium 133, potassium 4.4, BUN 40, creatinine 0.8, INR 1.7. IMAGING STUDIES CT angiogram shows no evidence of pulmonary emboli, bilateral effusions, more on the right. IMPRESSION 1. Acute respiratory failure resolved, now off ventilatory support on 2 liters oxygen nasal cannula. 2. Status aortic and mitral valve replacement. 3. Bilateral effusions. 4. History of pulmonary emboli. 5. Prostatic valve endocarditis. 6. Acute renal failure, improved. PLAN The patient has improved since hospitalization, respiratory failure is markedly improved. Bilateral pleural effusions, probably related to pleural fluid overload however, given history of endocarditis a right thoracentesis would be appropriate mainly for diagnostic purposes and whether there is an underlying infection or not. Once the thoracentesis is done will follow the results and proceed from there as needed. I do thank you for asking me to partake in Mrs. Barrios' care. MD SARAH Manriquez/SUZE /2:58 PM /4:04 PM
--- NOTE | 2016-11-26 17:13 | EKG ---
Date Performed: 11/25/2016 Time Performed: 11:49:15 PTAGE: 26 years EKG: Sinus rhythm LEFT ATRIAL ENLARGEMENT MARKED RIGHT AXIS DEVIATION SEPTAL MYOCARDIAL INFARCTION , OF INDETERMINATE AGE Diffuse ST-T wave changes, with T wave flattening compared to Previous tracing. The QRS is narrow ed, with resolution of the right bundle branch Block. Clinical corrolation is suggested. ABNORMAL ECG PREVIOUS TRACING : 11/14/2016 13.11 DOCTOR: Brian Uribe Interpretating Date/Time 11/26/2016 17:11:50
[2016-11-26] MEDS: FUROSEMIDE 20 MG/2 ML VIAL IV PUSH SCH (17:26)
[2016-11-26] MEDS: RESP: IPRATROPIUM 0.5 MG/2.5 ML NEB NEB PRN (19:41)
[2016-11-26] MEDS: MIRTAZAPINE 15 MG TAB PO SCH (20:22)
[2016-11-26] MEDS: ACETAMINOPHEN/HYDROcodone 325 MG/5 MG TAB PO PRN (20:22)
[2016-11-26] MEDS: TEMAZEPAM 7.5 MG CAP PO PRN (23:24)
[2016-11-27] VITALS (10 sets, daily range): BP systolic 93–104; BP diastolic 58–79; PULSE 79–116; RESP 18–28; TEMP 97.3–97.8; O2SAT 98–100
[2016-11-27] MEDS: PENICILLIN G POTASSIUM INJ 3,000,000 UNITS in SODIUM CHLORIDE 0.9% INJ 100 ML IV SCH ×6 (03:06→21:34)
[2016-11-27] MEDS: levETIRAcetam INJ 500 MG in SODIUM CHLORIDE 0.9% INJ 100 ML IV SCH ×2 (05:54→18:00)
[2016-11-27 06:54] LABS: BICARBONATE 19.3 MEQ/L (21.0-32.0); POTASSIUM 4.2 MEQ/L (3.5-5.1); RANDOM GENTAMICIN 0.5 MCG/ML
--- NOTE | 2016-11-27 07:29 | HHI.FPPN ---
Subjective Remarks Patient seen this morning. No acute events overnight. Low BPs this morning (MAP in the 70s). Otherwise vitals WNL. Had output of 2.1 L yesterday with -1.2 L balance. Weight stable at 54.1kg. Ewa has no complaints this morning. SOB slowly improving. Still with substernal CP, but unchanged from yesterday. Has continued, diffuse weakness. Worked with PT/OT yesterday. PT expressed importance of daily mobility. Was able to sit at edge of bed. Denies any F/C. ( Freddie Aguilar MD R3) Objective Vitals Vital Signs Date Time Temp Pulse Resp B/P Pulse Ox O2 Delivery O2 Flow Rate FiO2 11/27/16 04:00 97.4 79 18 95/58 100 11/27/16 00:00 97.6 89 18 93/69 100 11/26/16 20:29 Nasal Cannula 2.00 11/26/16 20:00 98.4 100 18 98/74 100 11/26/16 19:43 100 Nasal Cannula 2.00 11/26/16 16:00 97.4 110 22 100/68 98 11/26/16 12:00 96.1 97 20 98/81 100 11/26/16 09:00 95 Nasal Cannula 2.00 11/26/16 08:00 101 11/26/16 08:00 98.2 101 16 99/73 99 I/O 11/26/16 11/26/16 11/26/16 11/27/16 11/27/16 11/27/16 07:00 15:00 23:00 07:00 15:00 23:00 Intake Total 100 ml 480 ml 240 ml 240 ml Output Total 450 ml 975 ml 550 ml 650 ml Balance -350 ml -495 ml -310 ml -410 ml Intake Oral 100 ml 480 ml 240 ml 240 ml Output Urine Total 450 ml 975 ml 550 ml 650 ml # Bowel Movements 0 1 1 0 (Freddie Aguilar MD R3) Result Diagram: 11/27/16 0610 Objective Remarks GENERAL: frail-appearing, female patient. In NAD. SKIN: Warm and dry. has FR anterior brachial PICC in place. no signs of infection HEENT: AT/NC. Pupils equal and round. Mild scleral icterus. MMM. HEART: RRR with 3/6 LARRY heard throughout; normal peripheral perfusion in bilateral lower extremities. LUNGS: Breathing unlabored. Wet-sounding rales at lung bases (R>L), improved from yesterday. No other obvious adventitious sounds. ABDOMEN: Soft, ND. Bruises present in LLQ from injections. : Carter in place with charlotte colored urine. EXTREMITIES: No cyanosis or clubbing. Trace upper and lower extremity edema. Face puffy. No calf asymmetry. Negative Lola sign. NEURO: Follows commands. [employer] right hand and wiggles all toes. Able to lift right upper and lower extremities against resistance. Some upper and lower extremity movement against gravity on the left. Left wrist brace in place. 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 Blood cultures growing Strep viridans. Critical care consulted, now signed off. Infectious disease managing antibiotic coverage. Cardiology and CT surgery consulted; patient not a candidate for a second valve replacement since she already has both MV and AV replaced in September and there is a question of current drug use. Patient had a new-onset seizure with respiratory failure on and was subsequently intubated. MRI showing mass with surrounding hemorrhage of left frontal lobe which worsened slightly on follow up. Neurology and neurosurgery consulted. Palliative care now on board, as well. Family currently wishes to continue aggressive care. She is now s/p extubation 11/13. Moved from ICU to med-surg floor 11/15. CT brain 11/16 shows mild improvement of left frontal hemorrhage. She c/o worsening dyspnea 11/21. Ddimer elevated. CTA and bl LE dopplers negative. She is now being treated for continued dyspnea and weakness. Discharge Planning Plan for DC to rehab. Strength needs to improve before she can be cleared for DC. Uncertain timeframe for discharge at this point. Palliative care assisting with goals of care. Needs IV PCN until 01/01/2017, likely with lifelong PO antibiotic ppx to follow. Defer to ID. Will discuss with Dr. Pires (Freddie Aguilar MD R3) Attending Attestation Patient seen and examined. Case reviewed and discussed with the resident team. Agree with plan of care as discussed with me and documented in the resident note. spoke to her mother and explained that her heart is very weak and that she is getting SOB from that as well as her generalized fatigue and weakness. Her mom said, "This is my only daughter. I spend as much time as I can with her." In the past discussions with her mom and palliative resulted in continuation of aggressive care (Gladys Pires MD) Problem List: (1) Dyspnea Status: Acute Plan: Mild improvement from yesterday. Likely a chronic issue related to CHF/ recurrent endocarditis. -on atrovent q2 PRN SOB. -? anxiety contributing. Will give PRN ativan. -patient unable to perform peak flow /2 weakness, per respiratory History: -CTA and bl LE doppler negative 11/21 (2) Endocarditis Status: Acute Plan: Blood cultures growing step viridans. 2D echo suggestive of AV vegetation. - Repeat blood cultures on 11/09 show no growth - ID managing antibiotics * Continue PCN (11/09-). Per ID, cont until 01/01. * Gentamycin (11/15-) for synergy. Per ID, plan for DC after today. -cards and cards surgery have evaluated. Not a candidate for repeat cardiac surgery. Cultures: 11/09 Blood- Negative x5 days 11/07 Blood (Linex2 and Peripheralx2)- Strep Viridans; resistant to Erythromycin (3) CHF exacerbation Status: Acute Plan: 11/18- Repeat CXR obtained- mildly increased pulmonary edema. No adventitious sounds on exam today. Doing well on supplemental O2. BUN up to 36 this AM (BUN/Cr ~40:1). -CXR 11/26 shows worsening right pleural effusion. -repeat echo 11/23 shows no acute changes. -Continue home ramipril and carvedilol with hold parameters (hold for MAP <70). -Continue Spironolactone 25mg PO BID and change lasix to 20mg IV BID (hold for MAP <70). -oral potassium supplementation at 10mg -PRN atrovent for SOB. -incentive spirometry and acapella -1.5L fluid restriction with 2g sodium restriction -supplemental O2 1-2L for cardiogenic dyspnea. Will use vaseline for nasal irritation. -[facility] has reassessed patient. Appreciate their care. Continue with diuresis, as tolerated. Consider pulm consult for therapeutic thoracentesis, given persistent pleural effusion. -pulmonary consulted. Will plan for thoracentesis, mainly for diagnostic purposes. Will place lovenox on hold and check CBC/coags. Discuss with pulm this AM. (4) Cerebrovascular accident, embolic Status: Acute Plan: -Continue to follow coags. Warfarin on hold 2/ intracranial bleeding. -INR 1.7 on 11/24. -Neurosurgery consulted: Rashad for sz ppx. -OT/PT -Keep perfusion pressure >65 -Continue 81 mg ASA -Low dose Lovenox -Plan to rescan in 4 weeks or sooner if clinically indicated -left wrist splint to keep in neutral position -OOB with assistance (specifically, edge of bed BID; transfer to chair daily) History: Head CT 11/16- Evolving parenchymal hemorrhage L orbital frontal region as described above CT 11/13 showed left enlarging frontal lobe hematoma. New R parietal hemorrhage MRA 11/10 showing abrupt decrease in flow at M2 branches of right MCA MRI 11/09 showing widespread bilateral infarcts and focal intra-axial mass with surrounding hemorrhage of the left frontal lobe (5) Seizure Status: Acute Plan: Continue seizure ppx, as above. (6) Hepatitis C Status: Chronic Plan: Chronic issue. Monitor LFTs weekly. (7) Anxiety Status: Chronic Plan: will have low doses of ativan (8) Depression Status: Acute Plan: Decreased appetite and lethargy over the past several days. I am concerned her sxs are related, at least in part, to depression. -cont citalopram, as patient has good response with this medication in the past -remeron 15 mg HS -further discuss with palliative care today (9) Dietary counseling and surveillance Status: Acute Plan: Diet: heart healthy with thin liquids per speech. 1.5L fluid and 2g sodium restriction. Fluids: SLIV DVT ppx: SCDs. Low dose Lovenox restarted. (Freddie Aguilar MD R3) Problem Qualifiers (1) Dyspnea: Qualified Code: R06.02 - Shortness of breath (2) Endocarditis: Qualified Code: I33.0 - Acute bacterial endocarditis (3) CHF exacerbation: Qualified Code: I50.23 - Acute on chronic systolic congestive heart failure (4) Cerebrovascular accident, embolic: (5) Hepatitis C: Qualified Code: B18.2 - Chronic hepatitis C without hepatic coma (6) Depression: Qualified Code: F33.0 - Mild episode of recurrent major depressive disorder Freddie Aguilar MD R3 Nov 27, 2016 07:29 Gladys Pires MD Nov 28, 2016 14:07
[2016-11-27] MEDS: CARVEDILOL 3.125 MG TAB PO SCH ×3 (09:00→21:33)
[2016-11-27] MEDS: PETROLATUM 30 GM TUBE TOPICAL SCH (09:00)
[2016-11-27] MEDS: SODIUM CHLORIDE 0.9% FLUSH 5 ML FLUSH FLUSH SCH ×2 (09:00→21:35)
[2016-11-27] MEDS: POTASSIUM CHLORIDE 10 MEQ CONTROLLED RELEASE TAB PO SCH (09:00)
[2016-11-27] MEDS: LACTOBACILLUS ACIDOPHILUS TAB PO SCH ×2 (09:00→21:33)
[2016-11-27] MEDS: RAMIPRIL 2.5 MG CAP PO SCH (09:00)
[2016-11-27] MEDS: SPIRONOLACTONE 25 MG TAB PO SCH ×2 (10:03→18:00)
[2016-11-27] MEDS: ASPIRIN 81 MG CHEW TAB PO SCH (10:04)
[2016-11-27] MEDS: FUROSEMIDE 20 MG/2 ML VIAL IV PUSH SCH ×2 (10:04→18:00)
[2016-11-27] MEDS: CITALOPRAM HYDROBROMIDE 40 MG TAB PO SCH (10:04)
[2016-11-27] MEDS: FERROUS SULFATE 325 MG (65 MG ELEMENTAL IRON) TAB PO SCH ×2 (10:04→21:33)
[2016-11-27] MEDS: DOCUSATE SODIUM 100 MG CAP PO SCH ×2 (10:05→21:34)
[2016-11-27 10:31] LABS: AUTOMATED NEUTROPHIL # 6.9 TH/MM3 (1.8-7.7); BASOPHIL % 0.4 % (0.0-2.0); EOSINOPHIL # 0.1 TH/MM3 (0-0.4); EOSINOPHIL % 0.7 % (0.0-4.0); HEMATOCRIT 35.3 % (35.0-46.0); LYMPH % 23.1 % (9.0-44.0); LYMPHOCYTE # 2.3 TH/MM3 (1.0-4.8); MEAN CELL VOLUME 100.9 FL (80.0-100.0); MEAN CORPUSCULAR HEMOGLOBIN 31.2 PG (27.0-34.0); MEAN CORPUSCULAR HGB CONC 30.9 % (32.0-36.0); MONO % 6.6 % (0.0-8.0); NEUT % 69.2 % (16.0-70.0); PLATELET COUNT 152 TH/MM3 (150-450); RED CELL DISTRIBUTION WIDTH 25.7 % (11.6-17.2)
[2016-11-27 10:33] LABS: HEMO FLAGS AUTO DIFF
[2016-11-27 10:37] LABS: APTT (PATIENT) 33.8 SEC (24.3-30.1); INTERNATIONAL NORMALIZED RATIO 1.6 RATIO; PROTHROMBIN TIME - PATIENT 18.1 SEC (9.8-11.6)
[2016-11-27] MEDS: RESP: IPRATROPIUM 0.5 MG/2.5 ML NEB NEB PRN ×3 (10:38→20:21)
[2016-11-27 11:40] LABS: BANDS 1 % (0-6); CORRECTED NUCLEATED RBC 2 /100 WBC (0-0); NEUTROPHIL # MANUAL DIFF 7.1 TH/MM3 (1.8-7.7); PLATELET ESTIMATE SMEAR NORMAL (NORMAL); PLATELET MORPHOLOGY NORMAL (NORMAL); POLYS (SEG NEUTROPHILS) 70 % (16-70); SCAN/DIFF FINAL DIFF MANUAL; WBC DIFF SAMPLE 100
[2016-11-27 11:41] LABS: OVALOCYTES 1+ (NORMAL)
--- NOTE | 2016-11-27 12:27 | HHI.IDPN ---
Subjective Subjective Remarks Notes reviewed More SOB today Temps ok Also C/O chest pain, which she has had on and off Has good sats, on nasal O2 D/W RN D/W Dr Pires Creatinine ok BC with viridans Strep Last (+) BC 11/07, BC 11/09 negative Echo with AV vegetation Not surgical candidate for redo valve Antibiotics PCN Lines PICC - 11/18 Past Medical History Hospitalization from October to December 2015 for infective endocarditis and subsequent complication Hospitalization June 22 to July 23 for CHF and cervical discitis She's had CVA with subarachnoid hemorrhage, embolic lesions to the brain lungs and spleen as a result of her endocarditis Known IV drug use, patient states last time she used was prior to her hospitalization in August 2016 Bilateral sacroiliitis CVA with residual left-sided hemiplegia Past Surgical History Surgery on her discitis last July 09, 2016 AVR, MVR with tissue valve September 07, 2016 Allergies: Coded Allergies: *MDRO Multi-Drug Resistant Organism (Verified Adverse Reaction, Unknown, ) MRSA PCR screen POSITIVE- 10/18/2015 & 08/12/16 MRSA (urine, blood, 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 Vital Signs Date Time Temp Pulse Resp B/P Pulse Ox O2 Delivery O2 Flow Rate FiO2 11/27/16 09:25 99 Nasal Cannula 2.00 11/27/16 08:00 97.3 106 20 99/78 100 11/27/16 04:00 97.4 79 18 95/58 100 11/27/16 00:00 97.6 89 18 93/69 100 11/26/16 20:29 Nasal Cannula 2.00 11/26/16 20:00 99 11/26/16 20:00 98.4 100 18 98/74 100 11/26/16 19:43 100 Nasal Cannula 2.00 11/26/16 16:00 97.4 110 22 100/68 98 11/26/16 11/26/16 11/27/16 15:00 23:00 07:00 Intake Total 480 ml 240 ml 240 ml Output Total 975 ml 550 ml 650 ml Balance -495 ml -310 ml -410 ml Intake Oral 480 ml 240 ml 240 ml Output Urine Total 975 ml 550 ml 650 ml # Bowel Movements 1 1 0 . Laboratory Tests Test 11/27/16 10:00 White Blood Count 10.0 TH/MM3 Red Blood Count 3.50 MIL/MM3 Hemoglobin 10.9 GM/DL Hematocrit 35.3 % Mean Corpuscular Volume 100.9 FL Mean Corpuscular Hemoglobin 31.2 PG Mean Corpuscular Hemoglobin 30.9 % Concent Red Cell Distribution Width 25.7 % Platelet Count 152 TH/MM3 Mean Platelet Volume 9.0 FL Neutrophils (%) (Auto) 69.2 % Lymphocytes (%) (Auto) 23.1 % Monocytes (%) (Auto) 6.6 % Eosinophils (%) (Auto) 0.7 % Basophils (%) (Auto) 0.4 % Neutrophils # (Auto) 6.9 TH/MM3 Lymphocytes # (Auto) 2.3 TH/MM3 Monocytes # (Auto) 0.7 TH/MM3 Eosinophils # (Auto) 0.1 TH/MM3 Basophils # (Auto) 0.0 TH/MM3 CBC Comment AUTO DIFF Differential Total Cells 100 Counted Neutrophils % (Manual) 70 % Band Neutrophils % 1 % Lymphocytes % 24 % Monocytes % 5 % Neutrophils # (Manual) 7.1 TH/MM3 Nucleated Red Blood Cells 2 /100 WBC Differential Comment FINAL DIFF MANUAL Platelet Estimate NORMAL Platelet Morphology Comment NORMAL Ovalocytes 1+ Laboratory Tests Test 11/26/16 11/27/16 05:36 06:10 Sodium Level 133 MEQ/L 135 MEQ/L Potassium Level 4.4 MEQ/L 4.2 MEQ/L Chloride Level 101 MEQ/L 102 MEQ/L Carbon Dioxide Level 18.0 MEQ/L 19.3 MEQ/L Anion Gap 14 MEQ/L 14 MEQ/L Blood Urea Nitrogen 40 MG/DL 36 MG/DL Creatinine 0.89 MG/DL 0.79 MG/DL Estimat Glomerular Filtration 76 ML/MIN 87 ML/MIN Rate Random Glucose 107 MG/DL 99 MG/DL Calcium Level 8.5 MG/DL 8.5 MG/DL Imaging Chest X-Ray 11/26/16 0000 Signed Impressions: Service Date/Time: Saturday, November 26, 2016 10:22 - CONCLUSION: 1. Increasing interstitial edema consistent with worsening congestive failure. 2. Pleural effusion on the right continues to increase in size. Probably occupies approximately one quarter of the right hemithorax. Bennie Yanez MD FACR Lower Extremity Ultrasound 11/21/16 0000 Signed Impressions: Service Date/Time: Monday, November 21, 2016 22:40 - CONCLUSION: Normal examination. Jonny Neal MD CT Angiography 11/21/16 0000 Signed Impressions: Service Date/Time: Monday, November 21, 2016 19:20 - CONCLUSION: 1. There is no evidence for PE for technique. 2. Bilateral pleural effusions worse on the right, slight fluid within the mediastinum and pericardial effusion and a few prominent mediastinal lymph nodes. Ken Britton MD Head CT 11/16/16 1423 Signed Impressions: Service Date/Time: Wednesday, November 16, 2016 15:37 - CONCLUSION: Evolving parenchymal hemorrhage left orbital frontal region as described above, slightly smaller in the interval. Bennie Yanez MD FACR Head Magnetic Resonance Angiography 11/10/16 0000 Signed Impressions: Service Date/Time: Thursday, November 10, 2016 09:18 - CONCLUSION: Abrupt decrease in flow at the M2 branches of the right middle cerebral artery. Mookie Razo MD Brain MRI 11/09/16 0000 Signed Impressions: Service Date/Time: Wednesday, November 09, 2016 20:28 - CONCLUSION: 1. Widespread bilateral infarcts as above, several weeks in age or older. 2. Focal intra- axial mass with surrounding hemorrhage of the left frontal lobe. The lesion itself appears to be fairly small, probably about 15 mm in size. The hemorrhage is about 3.4 cm. Mookie Scales MD Chest X-Ray 11/18/16 0000 Signed Impressions: Service Date/Time: Friday, November 18, 2016 14:28 - CONCLUSION: 1. Interval placement of right-sided PICC line. 2. Hazy opacity remains in the perihilar regions and both lung bases which appears mildly improved. This may represent mild pulmonary edema. 3. Probable small left effusion. Bertin Segura MD Chest X-Ray 11/18/16 0000 Signed Impressions: Service Date/Time: Friday, November 18, 2016 07:54 - CONCLUSION: Cardiomegaly with bilateral pulmonary edema slightly more prominent. Abram Reyes MD Head CT 11/16/16 1423 Signed Impressions: Service Date/Time: Wednesday, November 16, 2016 15:37 - CONCLUSION: Evolving parenchymal hemorrhage left orbital frontal region as described above, slightly smaller in the interval. Bennie Yanez MD FACR Chest X-Ray 11/08/16 0600 Signed Impressions: Service Date/Time: October 02:25 - CONCLUSION: Persistent bibasilar effusions with associated airspace disease. No interval change. Milan Aguilar MD Lower Extremity Ultrasound 11/07/16 0000 Signed Impressions: Service Date/Time: Monday, November 07, 2016 09:33 - CONCLUSION: No DVT of the left lower extremity. Nonspecific subcutaneous edema. Mookie Scales MD Physical Exam GENERAL: awake and alert, dypsneic at rest SKIN: Cool and moist. No generalized rash HEENT: [place] conjunctivae, no petechia or hemorrhage. No scleral icterus. Moist oral mucosa. NECK: Supple, nontender, no meningeal signs. CARDIOVASCULAR: Regular rate and rhythm. There is a systolic murmur heard on the whole left precordium and base of the heart. No pericardial rub heard. RESPIRATORY: Coarse breath sounds bilaterally. Decreased breath sounds at the bases. GASTROINTESTINAL: Abdomen soft, non-tender, nondistended. Bowel sounds are present and normoactive. No organomegaly. No guarding. MUSCULOSKELETAL: Extremities without clubbing, cyanosis, warm and well perfused. No calf tenderness. Negative Homans sign bilaterally. NEUROLOGICAL: Awake and alert. L hemiparesis, has good movement in her LLE, and about 3/5 in her LUE PSYCH: Cooperative : Carter cath in place, urine looks clear LINE: no evidence of infection Assessment & Plan Remarks IMPRESSION Respiratory failure, resolved - extubated but has worsening SOB due to underlying cardiomyopathy, and valcular heart disease (TV and PV, and pulmonary HTN) Worsening SOB - last CXR with increased interstitial edema, and violeta effusions AV IE PVE, C/S Strep viridans New hemorrhagic CVA, table S/P AVR and MVR for severe AI and MR due to IE Episode of IE last year with complications Known IVDU Diarrhea RECOMMENDATION Continue IV PCN - aim for 6-8 weeks from last (+) BC - December 2 is 8 weeks from last (+) BC Monitor progress Labs weekly while on Abx: CBC, creat, LFT Consider tap of pleural effusions which should help with her SOB - pulmonary following She will need chronic oral suppressive Abx after she finishes her IV Abx D/W RN D/W Kenia Osei MD Nov 27, 2016 12:27
[2016-11-27] MEDS: ACETAMINOPHEN/HYDROcodone 325 MG/5 MG TAB PO PRN ×2 (13:00→18:28)
--- NOTE | 2016-11-27 16:22 | HHI.PR ---
Subjective Remarks C/O sob sat 95% on o2 awaits thoracentesis Objective Vital Signs Date Time Temp Pulse Resp B/P Pulse Ox O2 Delivery O2 Flow Rate FiO2 11/27/16 12:00 97.8 116 22 104/79 99 11/27/16 09:25 99 Nasal Cannula 2.00 11/27/16 08:00 97.3 106 20 99/78 100 11/27/16 04:00 97.4 79 18 95/58 100 11/27/16 00:00 97.6 89 18 93/69 100 11/26/16 20:29 Nasal Cannula 2.00 11/26/16 20:00 99 11/26/16 20:00 98.4 100 18 98/74 100 11/26/16 19:43 100 Nasal Cannula 2.00 I/O 11/26/16 11/26/16 11/26/16 11/27/16 11/27/16 11/27/16 07:00 15:00 23:00 07:00 15:00 23:00 Intake Total 100 ml 480 ml 240 ml 240 ml Output Total 450 ml 975 ml 550 ml 650 ml Balance -350 ml -495 ml -310 ml -410 ml Intake Oral 100 ml 480 ml 240 ml 240 ml Output Urine Total 450 ml 975 ml 550 ml 650 ml # Bowel Movements 0 1 1 0 Result Diagram: 11/27/16 1000 11/27/16 0610 Assessment and Plan Assessment and Plan respiratory failure fluid over load valve endocardirditis bilateral effusion PLAN thoracentesis o2 as needed check ABG Discussed Condition With GENERAL: SKIN: Warm and dry. HEAD: Atraumatic. Normocephalic. EYES: Pupils equal and round. No scleral icterus. No injection or drainage. ENT: No nasal bleeding or discharge. Mucous membranes pink and moist. NECK: Trachea midline. No JVD. CARDIOVASCULAR: Regular rate and rhythm. RESPIRATORY: No accessory muscle use. decrease breath sounds at basis. GASTROINTESTINAL: Abdomen soft, non-tender, nondistended. Hepatic and splenic margins not palpable. MUSCULOSKELETAL: Extremities without clubbing, cyanosis, or edema. No obvious deformities. NEUROLOGICAL: Awake and alert. No obvious cranial nerve deficits. Motor grossly within normal limits. Five out of 5 muscle strength in the arms and legs. Normal speech. PSYCHIATRIC: Appropriate mood and affect; insight and judgment normal. Last Impressions Chest X-Ray 11/26/16 0000 Signed Impressions: Service Date/Time: Saturday, November 26, 2016 10:22 - CONCLUSION: 1. Increasing interstitial edema consistent with worsening congestive failure. 2. Pleural effusion on the right continues to increase in size. Probably occupies approximately one quarter of the right hemithorax. Bennie Yanez MD FACR Lower Extremity Ultrasound 11/21/16 0000 Signed Impressions: Service Date/Time: Monday, November 21, 2016 22:40 - CONCLUSION: Normal examination. Jonny Neal MD CT Angiography 11/21/16 0000 Signed Impressions: Service Date/Time: Monday, November 21, 2016 19:20 - CONCLUSION: 1. There is no evidence for PE for technique. 2. Bilateral pleural effusions worse on the right, slight fluid within the mediastinum and pericardial effusion and a few prominent mediastinal lymph nodes. Ken Britton MD Head CT 11/16/16 1423 Signed Impressions: Service Date/Time: Wednesday, November 16, 2016 15:37 - CONCLUSION: Evolving parenchymal hemorrhage left orbital frontal region as described above, slightly smaller in the interval. Bennie Yanez MD FACR Head Magnetic Resonance Angiography 11/10/16 0000 Signed Impressions: Service Date/Time: Thursday, November 10, 2016 09:18 - CONCLUSION: Abrupt decrease in flow at the M2 branches of the right middle cerebral artery. Mookie Razo MD Brain MRI 11/09/16 0000 Signed Impressions: Service Date/Time: Wednesday, November 09, 2016 20:28 - CONCLUSION: 1. Widespread bilateral infarcts as above, several weeks in age or older. 2. Focal intra- axial mass with surrounding hemorrhage of the left frontal lobe. The lesion itself appears to be fairly small, probably about 15 mm in size. The hemorrhage is about 3.4 cm. MD Talisha Iglesias,Talisha Bal MD Nov 27, 2016 16:21
[2016-11-27 16:25] LABS: BLOOD GAS BASE EXCESS -12.1 mmol/L (-2-2); BLOOD GAS CARBOXYHEMOGLOBIN 2.8 % (0-4); BLOOD GAS HCO3 12 mmol/L (22-26); BLOOD GAS METHEMOGLOBIN 0.8 % (0-2); BLOOD GAS O2 HGB SATURATION 95 % (90-100); BLOOD GAS OXYGEN CONTENT 14.3 Vol % (12.0-20.0); BLOOD GAS PCO2 21 mmHg (38-42); BLOOD GAS PO2 115 mmHg (61-120); BLOOD GAS TOTAL HGB 10.5 G/DL (12.0-16.0); CRITICAL VALUE YES; DRAW SITE RT RADIAL; LITER FLOW 3 L/M; NUMBER OF ARTERIAL PUNCTURES 2; OXYGEN DEVICE NASAL CANNULA; STAT NO; TEMP CORR TO 98.6; ULNAR PULSE PRESENT
[2016-11-27] MEDS ORDERED: LIDOCAINE HCL 1% 50 ML VIAL ONE (16:40)
--- NOTE | 2016-11-27 16:47 | HHI.CCPN ---
Subjective Remarks/Hospital Course 26 y/o s/p MVR, AVR September 03 for endocarditis. She continued to use iv drugs until mid-October. Presents now with gross fluid overload and hypoxemic respiratory failure, with severe sepsis 11/07/16: Patient remains in septic shock and respiratory failure, remains on dobutamine, Levophed added. Requiring BiPAP. White count slightly improved 26, 000 from [id number]. 2-D echo showed possible large vegetation on the prosthetic aortic valve 11/08/16: Currently remains on 1 mcg/m of Levophed, 2.5 mg per KG per minute of dobutamine. Breathing improved currently on 3 L nasal cannula. Urine output 8.6 L in 24 hours with diuresis. Chest x-ray shows persistent bilateral effusion. 2d Echo showing probable AV vegetation. 11/09 Patient is off Levophed. Remains on dobutamine. Afebrile. Awake and alert on 2L oxygen. 11/10: yesterday afternoon had witnessed GTC seizure with associated hypoxic respiratory failure requiring emergent re-intubation. MRI at that time demonstrated multiple new and subacute infarcts as well as a left frontal mass vs. abscess. cultures persistently positive with strep viridans. this morning, weakly following commands in LUE. 11/11: more awake this morning. however, failed SBT twice this morning for apnea. 11/12: continues to fail SBT for somnolence and tachypnea. palliative care to see today. no clinical changes. 11/13: Surprisingly alert, comfortable respiratory pattern. CT Scan today with enlarging left frontal lobe hematoma, now 3.5 X 4.5 cm. 11/14: Tolerating extubation. Some symptoms from frontal lobe hematoma. Good response to diuretics. 11/15: Breathing comfortably. Responds well to diuretics. Transfer. 11/27: Called as a H[facility]CAT for worsening respiratory distress. This is a very well-known patient to the critical care service. She has medically and surgically refractory endocarditis with persistent IV drug abuse. I have had previous discussions with her mother and her that this is a terminal process and she will not recover from this. Despite this, the family has very poor insight into her condition and continues to press on with aggressive measures. I am seeing her today for respiratory distress. Per imaging, she has a worsening right pleural effusion secondary to refractory and decompensating volume overload and heart failure secondary to valvulopathy. She is tachypneic and in distress. There is an invasive radiology consult ordered for thoracentesis, but they are unable to do the procedure until tomorrow. the patient endorses significant respiratory distress. Objective Vital Signs Date Time Temp Pulse Resp B/P Pulse Ox O2 Delivery O2 Flow Rate FiO2 11/27/16 12:00 97.8 116 22 104/79 99 11/27/16 09:25 Nasal Cannula 2.00 11/23/16 07:31 21 Intake and Output 11/26/16 11/26/16 11/27/16 08:00 16:00 00:00 Intake Total 100 ml 480 ml 240 ml Output Total 450 ml 975 ml 550 ml Balance -350 ml -495 ml -310 ml Result Diagram: 11/27/16 1000 11/27/16 0610 Other Results Laboratory Tests Test 11/27/16 16:18 Blood Gas Puncture Site RT RADIAL Blood Gas Patient Temperature 98.6 Blood Gas HCO3 12 mmol/L (22-26) Blood Gas Base Excess -12.1 mmol/L (-2-2) Blood Gas Oxygen Saturation 95 % (90-100) Arterial Blood pH 7.38 (7.380-7.420) Arterial Blood Partial 21 mmHg (38-42) Pressure CO2 Arterial Blood Partial 115 mmHg Pressure O2 (61-120) Arterial Blood Oxygen Content 14.3 Vol % (12.0-20.0) Arterial Blood 2.8 % (0-4) Carboxyhemoglobin Arterial Blood Methemoglobin 0.8 % (0-2) Blood Gas Hemoglobin 10.5 G/DL (12.0-16.0) Oxygen Delivery Device NASAL CANNULA Blood Gas Liter Flow 3 L/M Imaging Last Impressions Chest X-Ray 11/26/16 0000 Signed Impressions: Service Date/Time: Saturday, November 26, 2016 10:22 - CONCLUSION: 1. Increasing interstitial edema consistent with worsening congestive failure. 2. Pleural effusion on the right continues to increase in size. Probably occupies approximately one quarter of the right hemithorax. Bennie Yanez MD FACR Lower Extremity Ultrasound 11/21/16 0000 Signed Impressions: Service Date/Time: Monday, November 21, 2016 22:40 - CONCLUSION: Normal examination. Jonny Neal MD CT Angiography 11/21/16 0000 Signed Impressions: Service Date/Time: Monday, November 21, 2016 19:20 - CONCLUSION: 1. There is no evidence for PE for technique. 2. Bilateral pleural effusions worse on the right, slight fluid within the mediastinum and pericardial effusion and a few prominent mediastinal lymph nodes. Ken Britton MD Head CT 11/16/16 1423 Signed Impressions: Service Date/Time: Wednesday, November 16, 2016 15:37 - CONCLUSION: Evolving parenchymal hemorrhage left orbital frontal region as described above, slightly smaller in the interval. Bennie Yanez MD FACR Head Magnetic Resonance Angiography 11/10/16 0000 Signed Impressions: Service Date/Time: Thursday, November 10, 2016 09:18 - CONCLUSION: Abrupt decrease in flow at the M2 branches of the right middle cerebral artery. Mookie Razo MD Brain MRI 11/09/16 0000 Signed Impressions: Service Date/Time: Wednesday, November 09, 2016 20:28 - CONCLUSION: 1. Widespread bilateral infarcts as above, several weeks in age or older. 2. Focal intra- axial mass with surrounding hemorrhage of the left frontal lobe. The lesion itself appears to be fairly small, probably about 15 mm in size. The hemorrhage is about 3.4 cm. Mookie Scales MD Objective Remarks GENERAL: Patient is 26 yo critically ill, in severe respiratory distress. she is on nc o2, respiratory rate in the 40s, using significant accessory muscles. trace peripheral edema. +JVD tachycardic rate, regular rhythm. A/P Problem List: (1) Acute hypoxemic respiratory failure ICD Code: J96.01 Status: Acute (2) Prosthetic valve endocarditis ICD Code: T82.6XXA Status: Acute (3) Septic shock ICD Code: A41.9 Status: Resolved Assessment and Plan Assessment: This is a 26yF with history if IVDA and Strep Viridans endocarditis who is now s/p AVR/MVR and re-presented with recurrence of her endocarditis now on her bioprosthetic aortic valve. Her course has now been complicated by GTC seizures likely secondary to multiple new septic embolic strokes. Dr. Meier has weighed in and there is no surgical option for her. From a neurosurgical standpoint, not a good operative candidate for biopsy of her left frontal mass or drainage from any intracranial abscess. From a cardiology standpoint, I have spoken with Dr. Blanc who agrees we have failed both medical and surgical options for the treatment of her recurrence of her endocarditis. I do not think the medical community has anything additional to offer this unfortunate 26yF, as she has failed all the therapy we have available to her. Her mother continues to want aggressive care. Her prognosis remains poor. For now, I do not think she meets ICU admission criteria because there is nothing in an intensive care unit that will change her overall prognosis or ultimate course of care. I do think it is reasonable to perform salvage right thoracentesis to assist with her respiratory distress and pulmonary mechanics. I will increase her forced diuresis to help with optimization of her heart failure exacerbation. She is critically ill at the time of my documentation. 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 Severe metabolic acidosis Plan: -lasix 100mg iv x 1 -sodium bicarbonate 2 amps iv x 1. -will perform thoracentesis as a salvage maneuver to improve her pulmonary mechanics. consent was previously signed for this procedure and it is at this point medically necessary to prevent intubation and mechanical ventilation, both of which would be futile in this patient. -will re-evaluate need for ICU level care. After thoracentesis (see separate procedure note for details), patient was visibly resting comfortably and patient states she feels more comfortable. she no longer meets criteria for critical care transfer to ICU level care. Critical care medicine will sign off. please reconsult as needed. Critical care time: 30 minutes, exclusive of separately docuemnted and billable procedures. Problem Qualifiers (1) Prosthetic valve endocarditis: Qualified Code: T82.6XXA - Prosthetic valve endocarditis, initial encounter David Lynn MD Nov 27, 2016 16:47
[2016-11-27] MEDS ORDERED: FUROSEMIDE 40 MG/4 ML VIAL ONE (17:14)
[2016-11-27] MEDS ORDERED: ALBUMIN HUMAN 25% 12.5 GM/50 ML BAGP IV ONE ×2 (17:15→17:30)
[2016-11-27] MEDS ORDERED: SODIUM BICARBONATE 8.4% INJ 50 MEQ/50 ML SYR IV PUSH ONE (17:30)
[2016-11-27] MEDS ORDERED: FUROSEMIDE 100 MG/10 ML VIAL IV PUSH ONE (17:30)
--- NOTE | 2016-11-27 17:59 | RADRPT ---
EXAM DATE/TIME: 11/27/2016 17:23 [facility] COMPARISON: CHEST SINGLE AP, November 26, 2016, 10:22. INDICATIONS : Post thoracentesis. MEDICAL HISTORY : Stroke. Cardiovascular disease. Cerebrovascular disease. Hepatitis C. SURGICAL HISTORY : Heart valve repair ENCOUNTER: Subsequent ACUITY: 3 weeks PAIN SCORE: 0/10 LOCATION: Bilateral chest FINDINGS: Single AP view of the chest. Right-sided PICC line looped in the proximal jugular vein unchanged in c onfiguration. Persistent bilateral lower lung zone pulmonary parenchymal opacity and small left pleur al effusion. No significant interval change. Persistent cardiac silhouette enlargement. CONCLUSION: No significant interval change with persistent pulmonary opacity suggesting edema and small left pleu ral effusion. Noe Mike MD on November 27, 2016 at 17:56 Board Certified Radiologist. This report was verified electronically.
[2016-11-27 18:23] LABS: CHOLESTEROL, PLEURAL FLUID LESS THAN 50 MG/DL; GLUCOSE,PLEURAL FLUID 107 MG/DL; TOTAL PROTEIN,PLEURAL FLUID 2.2 GM/DL
[2016-11-27 18:29] LABS: LIPASE-PLEURAL FLUID 76 U/L
[2016-11-27 18:58] LABS: PLEURAL FLUID LYMPHS 74 %
--- NOTE | 2016-11-27 18:59 | PD.PROCEDR ---
Procedure Note Procedure Therapeutic Thoracentesis diagnosis: acute hypoxic respiratory failure indication: large right pleural effusion with respiratory compromise consent: written consent was obtained anesthesia: 1% lidocaine locally description: patient placed in the sitting position. largest fluid pocked marked under pre-procedure ultrasound guidance. prepped and draped sterilely. 1 % lidocaine infiltrated for local anesthesia. needle and catheter advanced under negative pressure until serous fluid obtained. catheter threaded easily. 500cc drained (serous fluid). catheter withdrawn. band aid applied. patient tolerated the procedure well without immediate complication. minimal EBL. CXR ordered. I personally performed the procedure. David Lynn MD Nov 27, 2016 18:59
[2016-11-27] MEDS: MIRTAZAPINE 15 MG TAB PO SCH (21:34)
[2016-11-27] MEDS: TEMAZEPAM 7.5 MG CAP PO PRN (21:34)
[2016-11-27] MEDS: PANTOPRAZOLE SODIUM 40 MG VIAL IV PUSH SCH (23:35)
[2016-11-28] VITALS (11 sets, daily range): BP systolic 84–97; BP diastolic 56–67; PULSE 96–103; RESP 15–28; TEMP 96.6–98.1; O2SAT 94–100
[2016-11-28] MEDS: PENICILLIN G POTASSIUM INJ 3,000,000 UNITS in SODIUM CHLORIDE 0.9% INJ 100 ML IV SCH ×7 (01:25→23:25)
[2016-11-28] MEDS: RESP: IPRATROPIUM 0.5 MG/2.5 ML NEB NEB PRN ×4 (01:34→20:41)
[2016-11-28] MEDS: SODIUM CHLORIDE 0.9% FLUSH 5 ML FLUSH FLUSH PRN (05:04)
[2016-11-28] MEDS: levETIRAcetam INJ 500 MG in SODIUM CHLORIDE 0.9% INJ 100 ML IV SCH ×2 (05:04→17:25)
[2016-11-28 05:38] LABS: APTT (PATIENT) 34.3 SEC (24.3-30.1); INTERNATIONAL NORMALIZED RATIO 1.6 RATIO; PROTHROMBIN TIME - PATIENT 17.8 SEC (9.8-11.6)
[2016-11-28 05:56] LABS: BICARBONATE 22.8 MEQ/L (21.0-32.0)
[2016-11-28] MEDS: SODIUM CHLORIDE 0.9% FLUSH 5 ML FLUSH FLUSH SCH ×2 (09:00→21:11)
[2016-11-28] MEDS: PETROLATUM 30 GM TUBE TOPICAL SCH (09:00)
--- NOTE | 2016-11-28 09:05 | HHI.FPPN ---
Subjective Remarks Patient seen this morning. Patient c/o worsening SOB yesterday afternoon. HaliCAT was called. Public Area Attendant was consulted for thoracentesis. Was also give lasix 100mg IV x1. Patient was noted to be visibly more comfortable after thoracentesis. Critical care signed off. This morning she is again tachypneic with RR in the high 20s. Also tachycardic to the low 100s. Ewa c/o worsening CP this AM. Substernal and also over area of thoracentesis yesterday. (Freddie Aguilar MD R3) Objective Vitals Vital Signs Date Time Temp Pulse Resp B/P Pulse Ox O2 Delivery O2 Flow Rate FiO2 11/28/16 04:00 96.6 102 28 94/67 99 11/28/16 02:29 101 24 90/62 100 11/28/16 01:24 85/64 11/27/16 20:23 100 Nasal Cannula 3.00 11/27/16 20:04 103 11/27/16 20:00 Nasal Cannula 2.00 11/27/16 20:00 97.6 102 28 100/58 100 11/27/16 16:45 100 10.00 11/27/16 16:00 97.5 114 20 98/75 98 11/27/16 12:00 97.8 116 22 104/79 99 11/27/16 09:25 99 Nasal Cannula 2.00 11/27/16 09:00 98 Nasal Cannula 2.00 I/O 11/27/16 11/27/16 11/27/16 11/28/16 11/28/16 11/28/16 07:00 15:00 23:00 07:00 15:00 23:00 Intake Total 240 ml 480 ml 390 ml 240 ml Output Total 650 ml 1100 ml 400 ml 275 ml Balance -410 ml -620 ml -10 ml -35 ml Intake Oral 240 ml 480 ml 240 ml 240 ml IV Total 150 ml Output Urine Total 650 ml 1100 ml 400 ml 275 ml # Bowel Movements 0 0 0 0 (Freddie Aguilar MD R3) Result Diagram: 11/27/16 1000 11/28/16 0510 Objective Remarks GENERAL: frail-appearing, female patient. In NAD. SKIN: Warm and dry. has FR anterior brachial PICC in place. no signs of infection HEENT: AT/NC. Pupils equal and round. Mild scleral icterus. MMM. HEART: RRR with 3/6 LARRY heard throughout; normal peripheral perfusion in bilateral lower extremities. LUNGS: Breathing unlabored. Wet-sounding rales at lung bases (R>L), improved from yesterday. No other obvious adventitious sounds. ABDOMEN: Soft, ND. Bruises present in LLQ from injections. : Carter in place with charlotte colored urine. EXTREMITIES: No cyanosis or clubbing. Upper and lower extremity edema improved compared to yesterday. Wet sounding rales at bilateral lung bases, improved compared to yesterday. No calf asymmetry. Negative Lola sign. NEURO: Follows commands. Engineering Librarian right hand and wiggles all toes. Able to lift right upper and lower extremities against resistance. Some upper and lower extremity movement against gravity on the left. Left wrist brace in place. 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 Blood cultures growing Strep viridans. Critical care consulted, now signed off. Infectious disease managing antibiotic coverage. Cardiology and CT surgery consulted; patient not a candidate for a second valve replacement since she already has both MV and AV replaced in September and there is a question of current drug use. Patient had a new-onset seizure with respiratory failure on and was subsequently intubated. MRI showing mass with surrounding hemorrhage of left frontal lobe which worsened slightly on follow up. Neurology and neurosurgery consulted. Palliative care now on board, as well. Family currently wishes to continue aggressive care. She is now s/p extubation 11/13. Moved from ICU to med-surg floor 11/15. CT brain 11/16 shows mild improvement of left frontal hemorrhage. She c/o worsening dyspnea 11/21. Ddimer elevated. CTA and bl LE dopplers negative. She is now s/p thoracentesis 11/27 for worsening right pleural effusion. Discharge Planning Plan for DC to rehab. Strength needs to improve before she can be cleared for DC. Uncertain timeframe for discharge at this point. Palliative care assisting with goals of care. Needs IV PCN until 01/01/2017, likely with lifelong PO antibiotic ppx to follow. Defer to ID. Will discuss with Dr. Pires (Freddie Aguilar MD R3) Attending Attestation Patient seen and examined. Case reviewed and discussed with the resident team. Agree with plan of care as discussed with me and documented in the resident note. appreciate help Public Area Attendant. unfortunately, she is tachypneic today despite thoracentesis yesterday. There is a concern for low BPs per staff but her BPs are always low. Advised to call her Dr if MAP less than 70. She is extremely ill but unfortunately her heart problems are not reversible and the only thing to be done is medical management. (Gladys Pires MD) Problem List: (1) Dyspnea Status: Acute Plan: Improved from yesterday after thoracentesis. -on atrovent q2 PRN SOB. -? anxiety contributing. Will give PRN ativan. -patient unable to perform peak flow 2/2 weakness, per respiratory History: -CTA and bl LE doppler negative 11/21 (2) Pleural effusion, right Status: Acute Plan: S/p thoracentesis yesterday. Respiratory status improving. -Pleural fluid studies show WBC elevated to 653, RBCs elevated (likely traumatic ). Other studies WNL. Cx has been ordered. -will check repeat CXR this morning (3) Endocarditis Status: Acute Plan: Blood cultures growing step viridans. 2D echo suggestive of AV vegetation. - Repeat blood cultures on 11/09 show no growth - ID managing antibiotics * Continue PCN (11/09-). Per ID, cont until 01/01. * Gentamycin (11/15-11/27). DCed yesterday by ID. -cards and cards surgery have evaluated. Not a candidate for repeat cardiac surgery. Cultures: 11/27 Pleural fluid - pending 11/09 Blood- Negative x5 days 11/07 Blood (Linex2 and Peripheralx2)- Strep Viridans; resistant to Erythromycin (4) CHF exacerbation Status: Acute Plan: 11/18- Repeat CXR obtained- mildly increased pulmonary edema. No adventitious sounds on exam today. Doing well on supplemental O2. BUN up to 36 this AM (BUN/Cr ~40:1). -s/p thoracentesis yesterday, as above -repeat echo 11/23 shows no acute changes. -continue home ramipril and carvedilol with hold parameters (hold for MAP <70). -continue Spironolactone 12.5mg PO BID and change lasix to 40mg IV qAM and 20mg qHS (hold for MAP <70). Monitor intake and out. -consider restarting albumin if no improvement with above -oral potassium supplementation at 10mg -PRN atrovent for SOB. -incentive spirometry and acapella -1.5L fluid restriction with 2g sodium restriction -supplemental O2 1-2L for cardiogenic dyspnea. Will use vaseline for nasal irritation. -cards has reassessed patient. Appreciate their care. Continue with diuresis, as tolerated. Consider pulm consult for therapeutic thoracentesis, given persistent pleural effusion. -pulmonary consulted. Appreciate their care. (5) Cerebrovascular accident, embolic Status: Acute Plan: -Continue to follow coags. Warfarin on hold 2 intracranial bleeding. -INR 1.6 on 11/28. -Neurosurgery consulted: Rashad for sz ppx. -OT/PT -Keep perfusion pressure >65 -Continue 81 mg ASA -Low dose Lovenox -Plan to rescan in 4 weeks or sooner if clinically indicated -left wrist splint to keep in neutral position -OOB with assistance (specifically, edge of bed BID; transfer to chair daily) History: Head CT 11/16- Evolving parenchymal hemorrhage L orbital frontal region as described above CT 11/13 showed left enlarging frontal lobe hematoma. New R parietal hemorrhage MRA 11/10 showing abrupt decrease in flow at M2 branches of right MCA MRI 11/09 showing widespread bilateral infarcts and focal intra-axial mass with surrounding hemorrhage of the left frontal lobe (6) Seizure Status: Acute Plan: Continue seizure ppx, as above. (7) Hepatitis C Status: Chronic Plan: Chronic issue. Monitor LFTs weekly. (8) Anxiety Status: Chronic Plan: will have low doses of ativan (9) Depression Status: Acute Plan: Decreased appetite and lethargy over the past several days. I am concerned her sxs are related, at least in part, to depression. -cont citalopram, as patient has good response with this medication in the past -remeron 15 mg HS -further discuss with palliative care today (10) Dietary counseling and surveillance Status: Acute Plan: Diet: heart healthy with thin liquids per speech. 1.5L fluid and 2g sodium restriction. Fluids: SLIV DVT ppx: SCDs. Low dose Lovenox restarted. (Freddie Aguilar MD R3) Problem Qualifiers (1) Dyspnea: Qualified Code: R06.02 - Shortness of breath (2) Endocarditis: Qualified Code: I33.0 - Acute bacterial endocarditis (3) CHF exacerbation: Qualified Code: I50.23 - Acute on chronic systolic congestive heart failure (4) Cerebrovascular accident, embolic: (5) Hepatitis C: Qualified Code: B18.2 - Chronic hepatitis C without hepatic coma (6) Depression: Qualified Code: F33.0 - Mild episode of recurrent major depressive disorder Freddie Aguilar MD R3 Nov 28, 2016 09:04 Gladys Pires MD Nov 28, 2016 14:11
[2016-11-28] MEDS ORDERED: FUROSEMIDE 20 MG/2 ML VIAL IV PUSH ONE (09:45)
[2016-11-28] MEDS: ACETAMINOPHEN/HYDROcodone 325 MG/5 MG TAB PO PRN ×2 (10:12→19:00)
[2016-11-28] MEDS: CARVEDILOL 3.125 MG TAB PO SCH ×2 (10:15→21:11)
[2016-11-28] MEDS: RAMIPRIL 2.5 MG CAP PO SCH (10:15)
[2016-11-28] MEDS: LACTOBACILLUS ACIDOPHILUS TAB PO SCH ×2 (10:15→21:11)
[2016-11-28] MEDS: POTASSIUM CHLORIDE 10 MEQ CONTROLLED RELEASE TAB PO SCH (10:15)
[2016-11-28] MEDS: SPIRONOLACTONE 25 MG TAB PO SCH ×2 (10:16→18:59)
[2016-11-28] MEDS: FERROUS SULFATE 325 MG (65 MG ELEMENTAL IRON) TAB PO SCH ×2 (10:16→21:11)
[2016-11-28] MEDS: ASPIRIN 81 MG CHEW TAB PO SCH (10:16)
[2016-11-28] MEDS: CITALOPRAM HYDROBROMIDE 40 MG TAB PO SCH (10:16)
--- NOTE | 2016-11-28 10:50 | RADRPT ---
EXAM DATE/TIME: 11/28/2016 10:21 [facility] COMPARISON: CHEST SINGLE AP, November 27, 2016, 17:23. INDICATIONS : Short of breath. MEDICAL HISTORY : Stroke. SURGICAL HISTORY : heart valve surgery ENCOUNTER: Initial ACUITY: 3 weeks PAIN SCORE: 0/10 LOCATION: Bilateral chest FINDINGS: The cardiac silhouette is enlarged in transverse diameter. Median sternotomy wires are present. A pro sthetic valve is in place. Right-sided PICC line is place with the tip looped superiorly likely withi n the jugular vein. There are findings of congestive heart failure with interstitial and alveolar opa [place] bilaterally. There is left lower lobe atelectasis versus pneumonia. Moderate size bilateral pleu ral effusions are identified. CONCLUSION: 1. Cardiomegaly and findings of congestive heart failure. The findings have worsened when compared wi th the prior examination. 2. PICC line in the right looped superiorly as above Cameron Johansen MD on November 28, 2016 at 10:46 Board Certified Radiologist. This report was verified electronically.
[2016-11-28] MEDS: ALBUMIN HUMAN 25% 25 GM/100 ML BAGP IV SCH ×2 (12:31→23:24)
[2016-11-28] MEDS: DOCUSATE SODIUM 100 MG CAP PO SCH ×2 (12:31→23:24)
[2016-11-28] MEDS: LORazepam 1 MG TAB PO PRN ×2 (12:31→21:11)
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
--- NOTE | 2016-11-28 14:10 | HHI.IDPN ---
Subjective Subjective Remarks Notes reviewed Had tap R effusion yesterday - took out 500 ml Fluid did not look infected Continues to have significant SOB Family meeting being arranged by palliative medicine Looks tired ABG noted Antibiotics PCN Lines PICC - 11/18 Past Medical History Hospitalization from October to December 2015 for infective endocarditis and subsequent complication Hospitalization June 22 to July 23 for CHF and cervical discitis She's had CVA with subarachnoid hemorrhage, embolic lesions to the brain lungs and spleen as a result of her endocarditis Known IV drug use, patient states last time she used was prior to her hospitalization in August 2016 Bilateral sacroiliitis CVA with residual left-sided hemiplegia Past Surgical History Surgery on her discitis last July 09, 2016 AVR, MVR with tissue valve September 07, 2016 Allergies: Coded Allergies: *MDRO Multi-Drug Resistant Organism (Verified Adverse Reaction, Unknown, ) MRSA PCR screen POSITIVE- 10/18/2015 & 08/12/16 MRSA (urine, blood, 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 Vital Signs Date Time Temp Pulse Resp B/P Pulse Ox O2 Delivery O2 Flow Rate FiO2 11/28/16 09:57 94 Nasal Cannula 2.00 11/28/16 08:00 97.9 103 18 96/65 99 11/28/16 04:00 96.6 102 28 94/67 99 11/28/16 02:29 101 24 90/62 100 11/28/16 01:24 85/64 11/27/16 20:23 100 Nasal Cannula 3.00 11/27/16 20:04 103 11/27/16 20:00 Nasal Cannula 2.00 11/27/16 20:00 97.6 102 28 100/58 100 11/27/16 16:45 100 10.00 11/27/16 16:00 97.5 114 20 98/75 98 11/27/16 11/27/16 11/28/16 15:00 23:00 07:00 Intake Total 480 ml 390 ml 240 ml Output Total 1100 ml 400 ml 275 ml Balance -620 ml -10 ml -35 ml Intake Oral 480 ml 240 ml 240 ml IV Total 150 ml Output Urine Total 1100 ml 400 ml 275 ml # Bowel Movements 0 0 0 . Laboratory Tests Test 11/27/16 10:00 White Blood Count 10.0 TH/MM3 Red Blood Count 3.50 MIL/MM3 Hemoglobin 10.9 GM/DL Hematocrit 35.3 % Mean Corpuscular Volume 100.9 FL Mean Corpuscular Hemoglobin 31.2 PG Mean Corpuscular Hemoglobin 30.9 % Concent Red Cell Distribution Width 25.7 % Platelet Count 152 TH/MM3 Mean Platelet Volume 9.0 FL Neutrophils (%) (Auto) 69.2 % Lymphocytes (%) (Auto) 23.1 % Monocytes (%) (Auto) 6.6 % Eosinophils (%) (Auto) 0.7 % Basophils (%) (Auto) 0.4 % Neutrophils # (Auto) 6.9 TH/MM3 Lymphocytes # (Auto) 2.3 TH/MM3 Monocytes # (Auto) 0.7 TH/MM3 Eosinophils # (Auto) 0.1 TH/MM3 Basophils # (Auto) 0.0 TH/MM3 CBC Comment AUTO DIFF Differential Total Cells 100 Counted Neutrophils % (Manual) 70 % Band Neutrophils % 1 % Lymphocytes % 24 % Monocytes % 5 % Neutrophils # (Manual) 7.1 TH/MM3 Nucleated Red Blood Cells 2 /100 WBC Differential Comment FINAL DIFF MANUAL Platelet Estimate NORMAL Platelet Morphology Comment NORMAL Ovalocytes 1+ Laboratory Tests Test 11/27/16 11/28/16 06:10 05:10 Sodium Level 135 MEQ/L 137 MEQ/L Potassium Level 4.2 MEQ/L 4.0 MEQ/L Chloride Level 102 MEQ/L 103 MEQ/L Carbon Dioxide Level 19.3 MEQ/L 22.8 MEQ/L Anion Gap 14 MEQ/L 11 MEQ/L Blood Urea Nitrogen 36 MG/DL 37 MG/DL Creatinine 0.79 MG/DL 0.91 MG/DL Estimat Glomerular Filtration 87 ML/MIN 74 ML/MIN Rate Random Glucose 99 MG/DL 128 MG/DL Calcium Level 8.5 MG/DL 8.4 MG/DL Microbiology Date/Time Procedure Status Source Growth 11/27/16 17:37 Gram Stain - Final Resulted Fluid Pleural Fluid 11/27/16 17:37 Body Fluid Culture Resulted Fluid Pleural Fluid Pending Imaging Chest X-Ray 11/26/16 0000 Signed Impressions: Service Date/Time: Saturday, November 26, 2016 10:22 - CONCLUSION: 1. Increasing interstitial edema consistent with worsening congestive failure. 2. Pleural effusion on the right continues to increase in size. Probably occupies approximately one quarter of the right hemithorax. Bennie Yanez MD FACR Lower Extremity Ultrasound 3/22/17 0000 Signed Impressions: Service Date/Time: Monday, November 21, 2016 22:40 - CONCLUSION: Normal examination. Jonny Neal MD CT Angiography 11/21/16 0000 Signed Impressions: Service Date/Time: Monday, November 21, 2016 19:20 - CONCLUSION: 1. There is no evidence for PE for technique. 2. Bilateral pleural effusions worse on the right, slight fluid within the mediastinum and pericardial effusion and a few prominent mediastinal lymph nodes. Ken Britton MD Head CT 11/16/16 1423 Signed Impressions: Service Date/Time: Wednesday, November 16, 2016 15:37 - CONCLUSION: Evolving parenchymal hemorrhage left orbital frontal region as described above, slightly smaller in the interval. Bennie Yanez MD FACR Head Magnetic Resonance Angiography 11/10/16 0000 Signed Impressions: Service Date/Time: Thursday, November 10, 2016 09:18 - CONCLUSION: Abrupt decrease in flow at the M2 branches of the right middle cerebral artery. Mookie Razo MD Brain MRI 11/09/16 0000 Signed Impressions: Service Date/Time: Wednesday, November 09, 2016 20:28 - CONCLUSION: 1. Widespread bilateral infarcts as above, several weeks in age or older. 2. Focal intra- axial mass with surrounding hemorrhage of the left frontal lobe. The lesion itself appears to be fairly small, probably about 15 mm in size. The hemorrhage is about 3.4 cm. Mookie Scales MD Chest X-Ray 11/18/16 0000 Signed Impressions: Service Date/Time: Friday, November 18, 2016 14:28 - CONCLUSION: 1. Interval placement of right-sided PICC line. 2. Hazy opacity remains in the perihilar regions and both lung bases which appears mildly improved. This may represent mild pulmonary edema. 3. Probable small left effusion. Bertin Segura MD Chest X-Ray 11/18/16 0000 Signed Impressions: Service Date/Time: Friday, November 18, 2016 07:54 - CONCLUSION: Cardiomegaly with bilateral pulmonary edema slightly more prominent. Abram Reyes MD Head CT 11/16/16 1423 Signed Impressions: Service Date/Time: Wednesday, November 16, 2016 15:37 - CONCLUSION: Evolving parenchymal hemorrhage left orbital frontal region as described above, slightly smaller in the interval. Bennie Yanez MD FACR Chest X-Ray 11/08/16 0600 Signed Impressions: Service Date/Time: October 02:25 - CONCLUSION: Persistent bibasilar effusions with associated airspace disease. No interval change. Milan Aguilar MD Lower Extremity Ultrasound 11/07/16 0000 Signed Impressions: Service Date/Time: Monday, November 07, 2016 09:33 - CONCLUSION: No DVT of the left lower extremity. Nonspecific subcutaneous edema. Mookie Scales MD Physical Exam GENERAL: awake and sluggish. Dypsneic at rest SKIN: Cool and moist. No generalized rash HEENT: Schriever conjunctivae, no petechia or hemorrhage. No scleral icterus. Moist oral mucosa. NECK: Supple, nontender, no meningeal signs. CARDIOVASCULAR: Regular rate and rhythm. There is a systolic murmur heard on the whole left precordium and base of the heart. No pericardial rub heard. RESPIRATORY: Decreased breath sounds at the bases. GASTROINTESTINAL: Abdomen soft, non-tender, nondistended. Bowel sounds are present and normoactive. No organomegaly. No guarding. MUSCULOSKELETAL: Extremities without clubbing, cyanosis, warm and well perfused. No calf tenderness. Negative Homans sign bilaterally. NEUROLOGICAL: Awake and alert. L hemiparesis, has good movement in her LLE, and about 3/5 in her LUE PSYCH: Cooperative : Carter cath in place, urine looks clear LINE: no evidence of infection Assessment & Plan Remarks IMPRESSION Respiratory failure, resolved - extubated but has worsening SOB due to underlying cardiomyopathy, and valcular heart disease (TV and PV, and pulmonary HTN) Worsening SOB - last CXR with increased interstitial edema, and violeta effusions AV IE PVE, C/S Strep viridans New hemorrhagic CVA, table S/P AVR and MVR for severe AI and MR due to IE Episode of IE last year with complications Known IVDU RECOMMENDATION Continue IV PCN - aim for 6-8 weeks from last (+) BC - January 01 is 8 weeks from last (+) BC Monitor progress Labs weekly while on Abx: CBC, creat, LFT Not improving She will need chronic oral suppressive Abx after she finishes her IV Abx Prognosis very poor Dimayuga,Kenia G MD Nov 28, 2016 14:09
--- NOTE | 2016-11-28 17:32 | HHI.PR ---
Subjective Remarks C/O sob sat 95% on o2 thoracentesis done SOB better Objective Vital Signs Date Time Temp Pulse Resp B/P Pulse Ox O2 Delivery O2 Flow Rate FiO2 11/28/16 09:57 94 Nasal Cannula 2.00 11/28/16 08:00 97.9 103 18 96/65 99 11/28/16 04:00 96.6 102 28 94/67 99 11/28/16 02:29 101 24 90/62 100 11/28/16 01:24 85/64 11/27/16 20:23 100 Nasal Cannula 3.00 11/27/16 20:04 103 11/27/16 20:00 Nasal Cannula 2.00 11/27/16 20:00 97.6 102 28 100/58 100 I/O 11/27/16 11/27/16 11/27/16 11/28/16 11/28/16 11/28/16 07:00 15:00 23:00 07:00 15:00 23:00 Intake Total 240 ml 480 ml 390 ml 240 ml Output Total 650 ml 1100 ml 400 ml 275 ml Balance -410 ml -620 ml -10 ml -35 ml Intake Oral 240 ml 480 ml 240 ml 240 ml IV Total 150 ml Output Urine Total 650 ml 1100 ml 400 ml 275 ml # Bowel Movements 0 0 0 0 Result Diagram: 11/27/16 1000 11/28/16 0510 Assessment and Plan Assessment and Plan respiratory failure fluid over load valve endocardirditis bilateral effusion PLAN o2 as needed check ABG Talisha Woodall MD Nov 28, 2016 17:32
[2016-11-28] MEDS ORDERED: FUROSEMIDE 20 MG/2 ML VIAL IV PUSH SCH (21:00)
[2016-11-28] MEDS: MIRTAZAPINE 15 MG TAB PO SCH (21:11)
[2016-11-28] MEDS: FUROSEMIDE 40 MG/4 ML VIAL IV PUSH SCH (21:12)
[2016-11-28] MEDS: TEMAZEPAM 7.5 MG CAP PO PRN (23:24)
[2016-11-28] MEDS: PANTOPRAZOLE SODIUM 40 MG VIAL IV PUSH SCH (23:24)
[2016-11-29] VITALS (10 sets, daily range): BP systolic 77–89; BP diastolic 49–66; PULSE 89–99; RESP 16–36; TEMP 95.8–97.5; O2SAT 95–100
[2016-11-29] MEDS: PENICILLIN G POTASSIUM INJ 3,000,000 UNITS in SODIUM CHLORIDE 0.9% INJ 100 ML IV SCH ×5 (02:59→19:05)
[2016-11-29] MEDS: ACETAMINOPHEN/HYDROcodone 325 MG/5 MG TAB PO PRN ×2 (04:57→10:09)
[2016-11-29] MEDS: RESP: IPRATROPIUM 0.5 MG/2.5 ML NEB NEB PRN ×3 (05:29→12:56)
[2016-11-29] MEDS: levETIRAcetam INJ 500 MG in SODIUM CHLORIDE 0.9% INJ 100 ML IV SCH ×2 (06:44→19:01)
[2016-11-29 08:29] LABS: ALKALINE PHOSPHATASE 142 U/L (45-117); ALT (GPT) 31 U/L (10-53); ANION GAP 15 MEQ/L (5-15); AST (GOT) 45 U/L (15-37); BICARBONATE 17.7 MEQ/L (21.0-32.0); BLOOD UREA NITROGEN 43 MG/DL (7-18); CHLORIDE 100 MEQ/L (98-107); GLOMERULAR FILTRATION RATE 59 ML/MIN (>89); POTASSIUM 4.9 MEQ/L (3.5-5.1); SODIUM (NA) 133 MEQ/L (136-145); TOTAL BILIRUBIN ADULT 3.2 MG/DL (0.2-1.0)
[2016-11-29] MEDS ORDERED: FUROSEMIDE 40 MG/4 ML VIAL IV PUSH SCH ×2 (09:00→21:00)
[2016-11-29] MEDS ORDERED: SPIRONOLACTONE 25 MG TAB PO SCH ×3 (09:00→18:00)
--- NOTE | 2016-11-29 09:20 | HHI.FPPN ---
Subjective Remarks Patient seen this morning. No acute events overnight. Low blood pressures overnight (MAP in the 70s). Had UOP 950 over the past 24 hours (0.7 cc/kg/hr) with +110 balance. Weight today is stable at 56.4kg. Ewa c/o continued SOB this AM, unchanged from yesterday. Has continued CP. Adequate relief with PO meds. Denies any F/C or N/V. (Freddie Aguilar MD R3) Objective Vitals Vital Signs Date Time Temp Pulse Resp B/P Pulse Ox O2 Delivery O2 Flow Rate FiO2 11/29/16 08:58 99 Nasal Cannula 2.00 11/29/16 05:34 99 Nasal Cannula 2.00 11/29/16 04:00 97.5 98 16 87/66 96 11/29/16 04:00 Nasal Cannula 2.00 11/29/16 00:01 Nasal Cannula 2.00 11/29/16 00:01 97.3 99 16 89/59 95 11/28/16 20:08 100 11/28/16 20:00 97.2 97 15 97/56 95 11/28/16 20:00 Nasal Cannula 2.00 11/28/16 18:06 100 Nasal Cannula 2.00 11/28/16 16:00 98.0 96 22 84/65 100 11/28/16 12:00 98.1 101 20 86/66 100 11/28/16 09:57 94 Nasal Cannula 2.00 I/O 11/28/16 11/28/16 11/28/16 11/29/16 11/29/16 11/29/16 07:00 15:00 23:00 07:00 15:00 23:00 Intake Total 240 ml 480 ml 430 ml 150 ml Output Total 275 ml 400 ml 200 ml 350 ml Balance -35 ml 80 ml 230 ml -200 ml Intake Oral 240 ml 480 ml 430 ml 150 ml Output Urine Total 275 ml 400 ml 200 ml 350 ml # Bowel Movements 0 1 1 (Freddie Aguilar MD R3) Result Diagram: 11/27/16 1000 11/29/16 0710 Objective Remarks GENERAL: frail-appearing, female patient. In NAD. SKIN: Warm and dry. has FR anterior brachial PICC in place. no signs of infection HEENT: AT/NC. Pupils equal and round. Mild scleral icterus. MMM. HEART: RRR with 3/6 LARRY heard throughout; normal peripheral perfusion in bilateral lower extremities. LUNGS: Breathing unlabored. Wet-sounding rales at lung bases (R>L), unchanged from yesterday. No other obvious adventitious sounds. ABDOMEN: Soft, ND. Bruises present in LLQ from injections. : Carter in place with [place] colored urine. EXTREMITIES: No cyanosis or clubbing. Trace edema in LEs bilaterally. No calf asymmetry. Negative Lola sign. NEURO: Follows commands. Chip Tuner right hand and wiggles all toes. Able to lift right upper and lower extremities against resistance. Some upper and lower extremity movement against gravity on the left. Left wrist brace in place. 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 Blood cultures growing Strep viridans. Critical care consulted, now signed off. Infectious disease managing antibiotic coverage. Cardiology and CT surgery consulted; patient not a candidate for a second valve replacement since she already has both MV and AV replaced in September and there is a question of current drug use. Patient had a new-onset seizure with respiratory failure on and was subsequently intubated. MRI showing mass with surrounding hemorrhage of left frontal lobe which worsened slightly on follow up. Neurology and neurosurgery consulted. Palliative care now on board, as well. Family currently wishes to continue aggressive care. She is now s/p extubation 11/13. Moved from ICU to med-surg floor 11/15. CT brain 11/16 shows mild improvement of left frontal hemorrhage. She c/o worsening dyspnea 11/21. Ddimer elevated. CTA and bl LE dopplers negative. She is now s/p thoracentesis 11/27 for worsening right pleural effusion. Discharge Planning Plan for DC to rehab. Strength needs to improve before she can be cleared for DC. Uncertain timeframe for discharge at this point. Palliative care assisting with goals of care. Needs IV PCN until 01/01/2017, likely with lifelong PO antibiotic ppx to follow. Defer to ID. Will discuss with Dr. Pires (Freddie Aguilar MD R3) Attending Attestation Patient seen and examined. Case reviewed and discussed with the resident team. Agree with plan of care as discussed with me and documented in the resident note. sadly, she is extremely ill with un fixable problems (Gladys Pires MD) Problem List: (1) Dyspnea Status: Acute Plan: Unchanged from yesterday. -on atrovent q2 PRN SOB. -? anxiety contributing. Will continue PRN ativan. History: -CTA and bl LE doppler negative 11/21 (2) Pleural effusion, right Status: Acute Plan: S/p thoracentesis 11/27. Respiratory status essentially unchanged, as above. -Pleural fluid studies show WBC elevated to 653, RBCs elevated (likely traumatic ). Other studies WNL. Gram stain negative. Cx pending. (3) Endocarditis Status: Acute Plan: Blood cultures growing step viridans. 2D echo suggestive of AV vegetation. - Repeat blood cultures on 11/09 show no growth - ID managing antibiotics * Continue PCN (11/09-). Per ID, cont until 01/01. * Previously on Gentamycin (11/15-11/27). -cards and cards surgery have evaluated. Not a candidate for repeat cardiac surgery. Cultures: 11/27 Pleural fluid - pending 11/09 Blood- Negative x5 days 11/07 Blood (Linex2 and Peripheralx2)- Strep Viridans; resistant to Erythromycin (4) CHF exacerbation Status: Acute Plan: Positive 110 fluid balance, only 0.7cc/kg/hr UOP. Weight stable at 56.4kg compared to yesterday, but up 2.3kg from 11/27 (new bed?). CXR yesterday shows worsening pulmonary congestion. -check repeat CXR this morning -continue home ramipril and carvedilol with hold parameters (hold for MAP <70). -increase spironolactone 25 mg PO BID and change lasix to 40mg BID (hold for MAP <70). Will give 60 mg IV lasix x1 this AM. Monitor intake and out. -restart IV albumin 25 gm BID -oral potassium supplementation at 10mg -PRN atrovent for SOB. -incentive spirometry and acapella -1.5L fluid restriction with 2g sodium restriction. On review of EMR, it looks like dietary restrictions were DCed. Will re-order today. -supplemental O2 1-2L for cardiogenic dyspnea. Will use humidified O2 vaseline for nasal irritation. -cards has reassessed patient. Appreciate their care. Continue with diuresis, as tolerated. Consider pulm consult for therapeutic thoracentesis, given persistent pleural effusion. -pulmonary consulted. Appreciate their care. History: -repeat echo 11/23 shows no acute changes. (5) Cerebrovascular accident, embolic Status: Acute Plan: -Continue to follow coags. Warfarin on hold 10/04 intracranial bleeding. -INR 1.6 on 11/28. -Neurosurgery consulted: Rashad for sz ppx. -OT/PT -Keep perfusion pressure >65 -Continue 81 mg ASA -Low dose Lovenox -Plan to rescan in 4 weeks or sooner if clinically indicated -left wrist splint to keep in neutral position -OOB with assistance (specifically, edge of bed BID; transfer to chair daily) History: Head CT 11/16- Evolving parenchymal hemorrhage L orbital frontal region as described above CT 11/13 showed left enlarging frontal lobe hematoma. New R parietal hemorrhage MRA 11/10 showing abrupt decrease in flow at M2 branches of right MCA MRI 11/09 showing widespread bilateral infarcts and focal intra-axial mass with surrounding hemorrhage of the left frontal lobe (6) Seizure Status: Acute Plan: Continue seizure ppx, as above. (7) Hepatitis C Status: Chronic Plan: Chronic issue. Monitor LFTs weekly. (8) Anxiety Status: Chronic Plan: will have low doses of ativan (9) Depression Status: Acute Plan: Decreased appetite and lethargy over the past several days. I am concerned her sxs are related, at least in part, to depression. -cont citalopram, as patient has good response with this medication in the past -remeron 15 mg HS -further discuss with palliative care today (10) Dietary counseling and surveillance Status: Acute Plan: Diet: heart healthy with thin liquids per speech. 1.5L fluid and 2g sodium restriction. Fluids: SLIV DVT ppx: SCDs. Low dose Lovenox restarted. (Freddie Aguilar MD R3) Problem Qualifiers (1) Dyspnea: Qualified Code: R06.02 - Shortness of breath (2) Endocarditis: Qualified Code: I33.0 - Acute bacterial endocarditis (3) CHF exacerbation: Qualified Code: I50.23 - Acute on chronic systolic congestive heart failure (4) Cerebrovascular accident, embolic: (5) Hepatitis C: Qualified Code: B18.2 - Chronic hepatitis C without hepatic coma (6) Depression: Qualified Code: F33.0 - Mild episode of recurrent major depressive disorder Freddie Aguilar MD R3 Nov 29, 2016 09:20 Gladys Pires MD Dec 02, 2016 10:05
[2016-11-29] MEDS ORDERED: FUROSEMIDE 100 MG/10 ML VIAL IV PUSH ONE (09:30)
[2016-11-29] MEDS: RAMIPRIL 2.5 MG CAP PO SCH (10:06)
[2016-11-29] MEDS: LACTOBACILLUS ACIDOPHILUS TAB PO SCH ×3 (10:06→22:13)
[2016-11-29] MEDS: ASPIRIN 81 MG CHEW TAB PO SCH (10:06)
[2016-11-29] MEDS: FERROUS SULFATE 325 MG (65 MG ELEMENTAL IRON) TAB PO SCH ×3 (10:06→22:13)
[2016-11-29] MEDS: CARVEDILOL 3.125 MG TAB PO SCH ×2 (10:06→21:00)
[2016-11-29] MEDS: CITALOPRAM HYDROBROMIDE 40 MG TAB PO SCH (10:07)
[2016-11-29] MEDS: POTASSIUM CHLORIDE 10 MEQ CONTROLLED RELEASE TAB PO SCH (10:07)
[2016-11-29] MEDS: SODIUM CHLORIDE 0.9% FLUSH 5 ML FLUSH FLUSH SCH ×2 (10:07→22:12)
[2016-11-29] MEDS: FUROSEMIDE 40 MG/4 ML VIAL IV PUSH SCH ×3 (10:08→21:00)
[2016-11-29] MEDS: LORazepam 1 MG TAB PO PRN ×2 (10:09→15:57)
[2016-11-29] MEDS: PETROLATUM 30 GM TUBE TOPICAL SCH (11:03)
--- NOTE | 2016-11-29 11:09 | HHI.IDPN ---
Subjective Subjective Remarks Notes reviewed Continues to be SOB Looks very weak Spoke with [facility] palliative med Just had conference with mom I spoke with mom and informed her prognosis from ID standpoint - even if surgery done on her valve, she has very poor EF and has 2 other [place] valves that are not functioning well and not amenable for any correction; also her renal function and LFT worsening. She will speak with her and make decision. She seems to be accepting that prognosis is very poor and she can see that her daughter is suffering with her continued respiratory distress Antibiotics PCN Lines PICC - 11/18 Past Medical History Hospitalization from October to December 2015 for infective endocarditis and subsequent complication Hospitalization June 22 to July 23 for CHF and cervical discitis She's had CVA with subarachnoid hemorrhage, embolic lesions to the brain lungs and spleen as a result of her endocarditis Known IV drug use, patient states last time she used was prior to her hospitalization in August 2016 Bilateral sacroiliitis CVA with residual left-sided hemiplegia Past Surgical History Surgery on her discitis last July 09, 2016 AVR, MVR with tissue valve September 07, 2016 Allergies: Coded Allergies: *MDRO Multi-Drug Resistant Organism (Verified Adverse Reaction, Unknown, ) MRSA PCR screen POSITIVE- 10/18/2015 & 08/12/16 MRSA (urine, blood, 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 Vital Signs Date Time Temp Pulse Resp B/P Pulse Ox O2 Delivery O2 Flow Rate FiO2 11/29/16 08:58 99 Nasal Cannula 2.00 11/29/16 08:00 97.5 93 20 87/58 99 11/29/16 05:34 99 Nasal Cannula 2.00 11/29/16 04:00 97.5 98 16 87/66 96 11/29/16 04:00 Nasal Cannula 2.00 11/29/16 00:01 Nasal Cannula 2.00 11/29/16 00:01 97.3 99 16 89/59 95 11/28/16 20:08 100 11/28/16 20:00 97.2 97 15 97/56 95 11/28/16 20:00 Nasal Cannula 2.00 11/28/16 18:06 100 Nasal Cannula 2.00 11/28/16 16:00 98.0 96 22 84/65 100 11/28/16 12:00 98.1 101 20 86/66 100 11/28/16 11/28/16 11/29/16 15:00 23:00 07:00 Intake Total 480 ml 430 ml 150 ml Output Total 400 ml 200 ml 350 ml Balance 80 ml 230 ml -200 ml Intake Oral 480 ml 430 ml 150 ml Output Urine Total 400 ml 200 ml 350 ml # Bowel Movements 1 1 . Laboratory Tests Test 11/28/16 11/29/16 05:10 07:10 Sodium Level 137 MEQ/L 133 MEQ/L Potassium Level 4.0 MEQ/L 4.9 MEQ/L Chloride Level 103 MEQ/L 100 MEQ/L Carbon Dioxide Level 22.8 MEQ/L 17.7 MEQ/L Anion Gap 11 MEQ/L 15 MEQ/L Blood Urea Nitrogen 37 MG/DL 43 MG/DL Creatinine 0.91 MG/DL 1.11 MG/DL Estimat Glomerular Filtration 74 ML/MIN 59 ML/MIN Rate Random Glucose 128 MG/DL 99 MG/DL Calcium Level 8.4 MG/DL 9.0 MG/DL Total Bilirubin 3.2 MG/DL Aspartate Amino Transf 45 U/L (AST/SGOT) Alanine Aminotransferase 31 U/L (ALT/SGPT) Alkaline Phosphatase 142 U/L Total Protein 7.0 GM/DL Albumin 3.9 GM/DL Microbiology Date/Time Procedure Status Source Growth 11/27/16 17:37 Gram Stain - Final Resulted Fluid Pleural Fluid 11/27/16 17:37 Body Fluid Culture Resulted Fluid Pleural Fluid Pending Imaging Chest X-Ray 11/26/16 0000 Signed Impressions: Service Date/Time: Saturday, November 26, 2016 10:22 - CONCLUSION: 1. Increasing interstitial edema consistent with worsening congestive failure. 2. Pleural effusion on the right continues to increase in size. Probably occupies approximately one quarter of the right hemithorax. Bennie Yanez MD FACR Lower Extremity Ultrasound 11/21/16 0000 Signed Impressions: Service Date/Time: Monday, November 21, 2016 22:40 - CONCLUSION: Normal examination. Jonny Neal MD CT Angiography 11/21/16 0000 Signed Impressions: Service Date/Time: Monday, November 21, 2016 19:20 - CONCLUSION: 1. There is no evidence for PE for technique. 2. Bilateral pleural effusions worse on the right, slight fluid within the mediastinum and pericardial effusion and a few prominent mediastinal lymph nodes. Ken Britton MD Head CT 11/16/16 1423 Signed Impressions: Service Date/Time: Wednesday, November 16, 2016 15:37 - CONCLUSION: Evolving parenchymal hemorrhage left orbital frontal region as described above, slightly smaller in the interval. Bennie Yanez MD FACR Head Magnetic Resonance Angiography 11/10/16 0000 Signed Impressions: Service Date/Time: Thursday, November 10, 2016 09:18 - CONCLUSION: Abrupt decrease in flow at the M2 branches of the right middle cerebral artery. Mookie Razo MD Brain MRI 11/09/16 0000 Signed Impressions: Service Date/Time: Wednesday, November 09, 2016 20:28 - CONCLUSION: 1. Widespread bilateral infarcts as above, several weeks in age or older. 2. Focal intra- axial mass with surrounding hemorrhage of the left frontal lobe. The lesion itself appears to be fairly small, probably about 15 mm in size. The hemorrhage is about 3.4 cm. Mookie Scales MD Chest X-Ray 11/18/16 0000 Signed Impressions: Service Date/Time: Friday, November 18, 2016 14:28 - CONCLUSION: 1. Interval placement of right-sided PICC line. 2. Hazy opacity remains in the perihilar regions and both lung bases which appears mildly improved. This may represent mild pulmonary edema. 3. Probable small left effusion. Bertin Segura MD Chest X-Ray 11/18/16 0000 Signed Impressions: Service Date/Time: Friday, November 18, 2016 07:54 - CONCLUSION: Cardiomegaly with bilateral pulmonary edema slightly more prominent. Abram Reyes MD Head CT 11/16/16 1423 Signed Impressions: Service Date/Time: Wednesday, November 16, 2016 15:37 - CONCLUSION: Evolving parenchymal hemorrhage left orbital frontal region as described above, slightly smaller in the interval. Bennie Yanez MD FACR Chest X-Ray 11/08/16 0600 Signed Impressions: Service Date/Time: October 02:25 - CONCLUSION: Persistent bibasilar effusions with associated airspace disease. No interval change. Milan Aguilar MD Lower Extremity Ultrasound 11/07/16 0000 Signed Impressions: Service Date/Time: Monday, November 07, 2016 09:33 - CONCLUSION: No DVT of the left lower extremity. Nonspecific subcutaneous edema. Mookie Scales MD Physical Exam GENERAL: awake and sluggish. Dypsneic at rest SKIN: Cool and moist. No generalized rash HEENT: [place] conjunctivae, no petechia or hemorrhage. No scleral icterus. Moist oral mucosa. NECK: Supple, nontender, no meningeal signs. CARDIOVASCULAR: Regular rate and rhythm. No change in murmur. No rub RESPIRATORY: Decreased breath sounds at the bases. GASTROINTESTINAL: Abdomen soft, non-tender, nondistended. No guarding. MUSCULOSKELETAL: Extremities with edema. No calf tenderness. NEUROLOGICAL: Awake and alert. L hemiparesis, has good movement in her LLE, and about 3/5 in her LUE PSYCH: Cooperative : Carter cath in place, urine looks clear LINE: no evidence of infection Assessment & Plan Remarks IMPRESSION Respiratory failure, S/P extubation - extubated but has worsening SOB due to underlying cardiomyopathy, and valvular heart disease (TV and PV, and pulmonary HTN) Worsening SOB - last CXR with increased interstitial edema, and violeta effusions AV IE PVE, C/S Strep viridans New hemorrhagic CVA, table S/P AVR and MVR for severe AI and MR due to IE Episode of IE last year with complications Known IVDU Increasing creat and LFT RECOMMENDATION Continue IV PCN - aim for 6-8 weeks from last (+) BC - January 01 is 8 weeks from last (+) BC Monitor progress Labs weekly while on Abx: CBC, creat, LFT Prognosis very poor Family to discuss direction for further care Spoke with palliative med Spoke with patient's mom Kenia Parson MD Nov 29, 2016 11:09
--- NOTE | 2016-11-29 11:17 | RADRPT ---
EXAM DATE/TIME: 11/29/2016 09:29 [facility] COMPARISON: CHEST SINGLE AP, November 28, 2016, 10:21. INDICATIONS : Congestion MEDICAL HISTORY : Stroke. SURGICAL HISTORY : heart valve surgery. ENCOUNTER: Initial ACUITY: 1 day PAIN SCORE: 0/10 LOCATION: Bilateral chest FINDINGS: I. [place] radiusThe cardiac silhouette is enlarged in transverse diameter. There are findings of con gestive heart failure with interstitial and alveolar opacity bilaterally. The findings have worsened when compared with the prior examination. A prosthetic valve is in place. Moderate size bilateral ple ural effusions are identified. Right-sided PICC line remains looped in the internal jugular vein. CONCLUSION: 1. Cardiomegaly and findings of congestive heart failure. The findings have worsened when compared wi th the prior examination. Cameron Johansen MD on November 29, 2016 at 11:15 Board Certified Radiologist. This report was verified electronically.
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
[2016-11-29] MEDS: ENOXAPARIN SODIUM 40 MG/0.4 ML SYRINGE SQ SCH (12:16)
[2016-11-29] MEDS: ALBUMIN HUMAN 25% 25 GM/100 ML BAGP IV SCH (12:16)
[2016-11-29] MEDS: DOCUSATE SODIUM 100 MG CAP PO SCH ×3 (12:16→22:45)
--- NOTE | 2016-11-29 16:44 | HHI.PR ---
Subjective Remarks C/O sob sat 95% on o2 thoracentesis done SOB better Objective Vital Signs Date Time Temp Pulse Resp B/P Pulse Ox O2 Delivery O2 Flow Rate FiO2 11/29/16 15:45 92 36 86/61 100 11/29/16 12:00 96.9 92 20 85/58 98 11/29/16 10:19 Nasal Cannula 2.00 11/29/16 10:19 93 11/29/16 08:58 99 Nasal Cannula 2.00 11/29/16 08:00 97.5 93 20 87/58 99 11/29/16 05:34 99 Nasal Cannula 2.00 11/29/16 04:00 97.5 98 16 87/66 96 11/29/16 04:00 Nasal Cannula 2.00 11/29/16 00:01 Nasal Cannula 2.00 11/29/16 00:01 97.3 99 16 89/59 95 11/28/16 20:08 100 11/28/16 20:00 97.2 97 15 97/56 95 11/28/16 20:00 Nasal Cannula 2.00 11/28/16 18:06 100 Nasal Cannula 2.00 I/O 11/28/16 11/28/16 11/28/16 11/29/16 11/29/16 11/29/16 07:00 15:00 23:00 07:00 15:00 23:00 Intake Total 240 ml 480 ml 430 ml 150 ml Output Total 275 ml 400 ml 200 ml 350 ml Balance -35 ml 80 ml 230 ml -200 ml Intake Oral 240 ml 480 ml 430 ml 150 ml Output Urine Total 275 ml 400 ml 200 ml 350 ml # Bowel Movements 0 1 1 Result Diagram: 11/27/16 1000 11/29/16 0710 Assessment and Plan Assessment and Plan respiratory failure fluid over load valve endocardirditis bilateral effusion PLAN o2 as needed pulm toilet Discussed Condition With GENERAL: SKIN: Warm and dry. HEAD: Atraumatic. Normocephalic. EYES: Pupils equal and round. No scleral icterus. No injection or drainage. ENT: No nasal bleeding or discharge. Mucous membranes pink and moist. NECK: Trachea midline. No JVD. CARDIOVASCULAR: Regular rate and rhythm. RESPIRATORY: No accessory muscle use. Clear to auscultation. Breath sounds equal bilaterally. GASTROINTESTINAL: Abdomen soft, non-tender, nondistended. Hepatic and splenic margins not palpable. MUSCULOSKELETAL: Extremities without clubbing, cyanosis, or edema. No obvious deformities. NEUROLOGICAL: Awake and alert. No obvious cranial nerve deficits. Motor grossly within normal limits. Five out of 5 muscle strength in the arms and legs. Normal speech. PSYCHIATRIC: Appropriate mood and affect; insight and judgment normal. Talisha Woodall MD Nov 29, 2016 16:44
--- NOTE | 2016-11-29 18:33 | HHI.FPPN ---
Addendum to progress note ADDENDUM Reason for addendum: Additonal documentation Additional information S: Resident received page from nursing staff regarding patient with hypotension , BP 77/55 (MAP 62) . She also had worsening of her shortness of breath compared to earlier today. When we came to evaluate the patient, she had some increased work of breathing, RR 30s. O2 sats however stable on 4L of O2 via NC. She reports generalized pain in her lower chest/upper abdominal area. O: GEN: Ill-appearing female CV: RRR with 3/6 LARRY; pulses intact in all 4 extremities. RESP: Decreased BS on left base ABD: Moderately distended; non-tender with active bowel sounds MSK: Trace edema in LEs bilaterally. A/P: Patient is a 26 year old female with a complicated medical history, including IVDU complicated by endocarditis s/p mitral and aortic tissue valve replacement, severe CHF with EF ~25%, and CVA with left-sided hemiparesis was admitted on 11/06 for respiratory failure, severe sepsis, fluid overload, and recurrent endocarditis. She has intermittent episode of hypotension and worsening dyspnea related to her CHF. She is s/p thoracentesis on 11/27. Despite interventions, her prognosis remains poor. We have to be cautious with giving her IVFs given her severe CHF. Spoke with Dr. Pires and Dr. Aguilar. Will continue to monitor patient's vital signs. Supplemental O2 prn. Hold tonight's dose of diuretics. As long as MAP is above 60, will continue current management. If MAP drops, will consult critical care for further evaluation. In addition, will try to speak with patient's mother to try and update her regarding patient's status. d/w Dr. Pires and Dr. Aguilar s/d/w Joan Barney MD R3 Nov 29, 2016 18:33
[2016-11-29] MEDS: MIRTAZAPINE 15 MG TAB PO SCH (21:00)
[2016-11-30] VITALS (8 sets, daily range): BP systolic 76–81; BP diastolic 0–58; PULSE 86–93; RESP 22–23; TEMP 97.3–97.9; O2SAT 100
[2016-11-30] MEDS: PANTOPRAZOLE SODIUM 40 MG VIAL IV PUSH SCH (02:24)
[2016-11-30] MEDS: PENICILLIN G POTASSIUM INJ 3,000,000 UNITS in SODIUM CHLORIDE 0.9% INJ 100 ML IV SCH ×3 (02:24→09:25)
[2016-11-30] MEDS: ALBUMIN HUMAN 25% 25 GM/100 ML BAGP IV SCH (02:25)
[2016-11-30] MEDS: FUROSEMIDE 40 MG/4 ML VIAL IV PUSH SCH (03:00)
[2016-11-30] MEDS: RESP: IPRATROPIUM 0.5 MG/2.5 ML NEB NEB PRN ×2 (05:33→09:01)
[2016-11-30] MEDS: levETIRAcetam INJ 500 MG in SODIUM CHLORIDE 0.9% INJ 100 ML IV SCH ×2 (06:30→16:58)
--- NOTE | 2016-11-30 07:58 | HHI.FPPN ---
Addendum to progress note ADDENDUM Reason for addendum: Additonal documentation Additional information S: Resident paged at [phone] regarding patient with persistent hypotension. Last BP reading was 76/44 with MAP of 55. Per nurse, patient was more lethargic. When we came to evaluate her, her mother was at the bedside. Patient reported diffused left sided chest pain and asked if she could get any pain medication. No other concerns. O: GEN: Ill-appearing female. Appears lethargic but arousal and answer questions appropriately. CV: RRR with 3/6 LARRY; pulses intact in all 4 extremities. RESP: Decreased BS on left base. ABD: Moderately distended; non-tender with active bowel sounds MSK: Trace edema in LEs bilaterally. A/P: Patient is a 26 year old female with a complicated medical history, including IVDU complicated by endocarditis s/p mitral and aortic tissue valve replacement, severe CHF with EF ~25%, and CVA with left-sided hemiparesis was admitted on 11/06 for respiratory failure, severe sepsis, fluid overload, and recurrent endocarditis. She now has persistent hypotension related to her CHF and overall condition. Repeat BP after our evaluation was 81/54 (MAP 63). Patient was more awake. Will continue to monitor and discuss with day team regarding other interventions (including initiation of pressors) to manage her hypotension, although her overall prognosis will remain very poor despite our efforts. Palliative care is on board to [facility] of care given her clinical deterioration. w/d/w Dr. Pires and Dr. Aguilar s/d/w Dr. Smith (Joan Mccollum MD R3) Joan Mccollum MD R3 Nov 30, 2016 07:58 Freddie Aguilar MD R3 January 30, 2017 14:54
--- NOTE | 2016-11-30 08:33 | HHI.FPPN ---
Subjective Remarks Patient seen this morning. Patient had low BPs overnight (MAP in the 50s). call center recruiter team went to evaluate patient. Case was discussed with critical care doctor. Diuretics were held overnight. Patient does continue to complain of substernal chest pain. Not adequately relieved with PO medications. SOB unchanged from yesterday. No other complaints. No F/C. Her mother is present in the room. She expresses concern for "daughter suffering ". Understands "medicines for her heart are also causing kidneys to fail and blood pressure to drop". She states she is "okay with the idea of Hospice". She understands she would need to make DNR for transition to Hospice. (Freddie Aguilar MD R3) Objective Vitals Vital Signs Date Time Temp Pulse Resp B/P Pulse Ox O2 Delivery O2 Flow Rate FiO2 11/30/16 04:19 97.9 86 23 76/44 100 11/30/16 00:20 97.3 87 22 80/55 100 11/29/16 20:00 95.8 89 24 87/49 100 11/29/16 16:00 90 34 77/55 100 11/29/16 15:45 92 36 86/61 100 11/29/16 12:00 96.9 92 20 85/58 98 11/29/16 10:19 Nasal Cannula 2.00 11/29/16 10:19 93 11/29/16 08:58 99 Nasal Cannula 2.00 I/O 11/29/16 11/29/16 11/29/16 11/30/16 11/30/16 11/30/16 07:00 15:00 23:00 07:00 15:00 23:00 Intake Total 150 ml 240 ml 120 ml 120 ml Output Total 350 ml 250 ml 400 ml 500 ml Balance -200 ml -10 ml -280 ml -380 ml Intake Oral 150 ml 240 ml 120 ml 120 ml Output Urine Total 350 ml 250 ml 400 ml 500 ml # Bowel Movements 1 0 1 (Freddie Aguilar MD R3) Result Diagram: 11/27/16 1000 11/30/16 0630 Objective Remarks GENERAL: frail-appearing, female patient. In NAD. SKIN: Warm and dry. Has FR anterior brachial PICC in place. no signs of infection HEENT: AT/NC. Pupils equal and round. Mild scleral icterus. MMM. HEART: RRR with 3/6 LARRY heard throughout. Thready distal pulses. Cool extremities. LUNGS: Breathing unlabored. Wet-sounding rales at lung bases (R>L), unchanged from yesterday. No other obvious adventitious sounds. ABDOMEN: Soft, ND. Bruises present in LLQ from injections. : Carter in place with charlotte colored urine. EXTREMITIES: No cyanosis or clubbing. Trace edema in LEs bilaterally. No calf asymmetry. Negative Lola sign. NEURO: Follows commands. Ecological Modeler right hand and wiggles all toes. Able to lift right upper and lower extremities against resistance. Some upper and lower extremity movement against gravity on the left. Left wrist brace in place. 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 Blood cultures growing Strep viridans. Critical care consulted, now signed off. Infectious disease managing antibiotic coverage. Cardiology and CT surgery consulted; patient not a candidate for a second valve replacement since she already has both MV and AV replaced in September and there is a question of current drug use. Patient had a new-onset seizure with respiratory failure on and was subsequently intubated. MRI showing mass with surrounding hemorrhage of left frontal lobe which worsened slightly on follow up. Neurology and neurosurgery consulted. Palliative care now on board, as well. Family currently wishes to continue aggressive care. She is now s/p extubation 11/13. Moved from ICU to med-surg floor 11/15. CT brain 11/16 shows mild improvement of left frontal hemorrhage. She c/o worsening dyspnea 11/21. Ddimer elevated. CTA and bl LE dopplers negative. She is now s/p thoracentesis 11/27 for worsening right pleural effusion. Discharge Planning Patient would be an excellent candidate for hospice care at this point. She has worsening pulmonary congestion and dyspnea related to heart failure. Unfortunately, has not been tolerating diuresis (low pressures, kidney failure) . Patient remains a full code and I am afraid she will require mechanical ventilation soon 2/2 respiratory failure. Palliative care and critical care doctor plan to further discuss with patient family today. Will discuss with Dr. Pires. (Freddie Aguilar MD R3) Attending Attestation Patient seen and examined. Case reviewed and discussed with the resident team. Agree with plan of care as discussed with me and documented in the resident note. greatly appreciate help of palliative (Gladys Pires MD) Problem List: (1) CHF exacerbation Status: Acute Plan: Negative 670 balance. 1150 UOP. Weight unchanged from yesterday but up 2.3 kg from 11/27 (different bed?). CXR yesterday shows worsening pulmonary congestion. -check repeat CXR this morning -continue home ramipril and carvedilol with hold parameters (hold for MAP <70). -given low pressures, will need to decrease diuresis to highest tolerated dose. Start lasix 40mg IV BID and Spironolactone 12.5 BID. Continue Albumin 25mg BID. -oral potassium supplementation at 10mg -PRN atrovent for SOB. -incentive spirometry and acapella -1.5L fluid restriction with 2g sodium restriction. On review of EMR, it looks like dietary restrictions were DCed, previously. Re-ordered yesterday. -supplemental O2 1-2L for cardiogenic dyspnea. Will use humidified O2 vaseline for nasal irritation. -cards has reassessed patient. Appreciate their care. Continue with diuresis, as tolerated. -pulmonary consulted. Appreciate their care. History: -repeat echo 11/23 shows no acute changes. (2) Hypotension Status: Acute Plan: Likely 2/2 aggressive diuresis. Patient does have low pressures ( baseline MAP in 70s), but have decreased significantly over the past day (MAP in the 50s). -decrease diuresis, as above -could be underestimating blood pressure if using regular adult cuff. Will discuss with nursing. (3) Dyspnea Status: Acute Plan: Unchanged from yesterday. -on atrovent q2 PRN SOB. -? anxiety contributing. Will continue PRN ativan. History: -CTA and bl LE doppler negative 11/21 (4) Pleural effusion, right Status: Acute Plan: S/p thoracentesis 11/27. Respiratory status essentially unchanged, as above. -Pleural fluid studies show WBC elevated to 653, RBCs elevated (likely traumatic ). Other studies WNL. Gram stain negative. Cx pending. (5) Endocarditis Status: Acute Plan: Blood cultures growing step viridans. 2D echo suggestive of AV vegetation. - Repeat blood cultures on 11/09 show no growth - ID managing antibiotics * Continue PCN (11/09-). Per ID, cont until 01/01. * Previously on Gentamycin (11/15-11/27). -cards and cards surgery have evaluated. Not a candidate for repeat cardiac surgery. Cultures: 11/27 Pleural fluid - pending 11/09 Blood- Negative x5 days 11/07 Blood (Linex2 and Peripheralx2)- Strep Viridans; resistant to Erythromycin (6) Cerebrovascular accident, embolic Status: Acute Plan: -Continue to follow coags. Warfarin on hold 10/04 intracranial bleeding. -INR 1.6 on 11/28. -Neurosurgery consulted: Rashad for sz ppx. -OT/PT -Keep perfusion pressure >65 -Continue 81 mg ASA -Low dose Lovenox -Plan to rescan in 4 weeks or sooner if clinically indicated -left wrist splint to keep in neutral position -OOB with assistance (specifically, edge of bed BID; transfer to chair daily) History: Head CT 11/16- Evolving parenchymal hemorrhage L orbital frontal region as described above CT 11/13 showed left enlarging frontal lobe hematoma. New R parietal hemorrhage MRA 11/10 showing abrupt decrease in flow at M2 branches of right MCA MRI 11/09 showing widespread bilateral infarcts and focal intra-axial mass with surrounding hemorrhage of the left frontal lobe (7) Seizure Status: Acute Plan: Continue seizure ppx, as above. (8) Hepatitis C Status: Chronic Plan: Chronic issue. Monitor LFTs weekly. (9) Anxiety Status: Chronic Plan: will have low doses of ativan (10) Depression Status: Acute Plan: Decreased appetite and lethargy over the past several days. I am concerned her sxs are related, at least in part, to depression. -cont citalopram, as patient has good response with this medication in the past -remeron 15 mg HS -further discuss with palliative care today (11) Dietary counseling and surveillance Status: Acute Plan: Diet: heart healthy with thin liquids per speech. 1.5L fluid and 2g sodium restriction. Fluids: SLIV DVT ppx: SCDs. Low dose Lovenox restarted. (Freddie Aguilar MD R3) Problem Qualifiers (1) CHF exacerbation: Qualified Code: I50.23 - Acute on chronic systolic congestive heart failure (2) Hypotension: Qualified Code: I95.2 - Hypotension due to drugs (3) Dyspnea: Qualified Code: R06.02 - Shortness of breath (4) Endocarditis: Qualified Code: I33.0 - Acute bacterial endocarditis (5) Cerebrovascular accident, embolic: (6) Hepatitis C: Qualified Code: B18.2 - Chronic hepatitis C without hepatic coma (7) Depression: Qualified Code: F33.0 - Mild episode of recurrent major depressive disorder Freddie Aguilar MD R3 Nov 30, 2016 08:33 Gladys Pires MD Dec 02, 2016 10:14
--- NOTE | 2016-11-30 08:43 | RADRPT ---
EXAM DATE/TIME: 11/30/2016 08:25 [facility] COMPARISON: CHEST SINGLE AP, November 29, 2016, 9:29. INDICATIONS : Patient is having chest pain and short of breath. MEDICAL HISTORY : Stroke. Cardiovascular disease. Cerebrovascular disease. Hepatitis C. SURGICAL HISTORY : Heart valve repair ENCOUNTER: Initial ACUITY: 3 weeks PAIN SCORE: 7/10 LOCATION: Bilateral chest FINDINGS: The cardiac silhouette is normal in transverse diameter. Median sternotomy wires are present. There a re findings of congestive heart failure with interstitial and alveolar opacity bilaterally. A prosthe tic valve is in place. PIC line remains looped in the right internal jugular vein. CONCLUSION: 1. Cardiomegaly and findings of congestive heart failure. There has been no significant change when c ompared to the prior exam. Cameron Johansen MD on November 30, 2016 at 8:41 Board Certified Radiologist. This report was verified electronically.
[2016-11-30] MEDS: PETROLATUM 30 GM TUBE TOPICAL SCH (09:00)
[2016-11-30] MEDS ORDERED: FUROSEMIDE 40 MG/4 ML VIAL IV PUSH SCH (09:00)
[2016-11-30] MEDS: CARVEDILOL 3.125 MG TAB PO SCH (09:00)
[2016-11-30] MEDS ORDERED: SPIRONOLACTONE 25 MG TAB PO SCH (09:00)
[2016-11-30] MEDS: RAMIPRIL 2.5 MG CAP PO SCH (09:00)
[2016-11-30] MEDS: SODIUM CHLORIDE 0.9% FLUSH 5 ML FLUSH FLUSH SCH ×2 (09:00→20:27)
[2016-11-30] MEDS: CITALOPRAM HYDROBROMIDE 40 MG TAB PO SCH (09:26)
[2016-11-30] MEDS: ENOXAPARIN SODIUM 40 MG/0.4 ML SYRINGE SQ SCH (09:27)
[2016-11-30] MEDS: POTASSIUM CHLORIDE 10 MEQ CONTROLLED RELEASE TAB PO SCH (09:27)
[2016-11-30] MEDS: LACTOBACILLUS ACIDOPHILUS TAB PO SCH (09:27)
[2016-11-30] MEDS: ASPIRIN 81 MG CHEW TAB PO SCH (09:27)
[2016-11-30] MEDS: FERROUS SULFATE 325 MG (65 MG ELEMENTAL IRON) TAB PO SCH (09:27)
[2016-11-30] MEDS: DOCUSATE SODIUM 100 MG CAP PO SCH ×2 (09:28→22:45)
[2016-11-30] MEDS: ACETAMINOPHEN/HYDROcodone 325 MG/5 MG TAB PO PRN (10:11)
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
[2016-11-30] MEDS ORDERED: LORazepam 2 MG/ML VIAL IV PUSH PRN (11:00)
[2016-11-30] MEDS ORDERED: RESP: IPRATROPIUM 0.5 MG/2.5 ML NEB NEB ONE (11:00)
[2016-11-30] MEDS ORDERED: HYOSCYAMINE 0.125 MG TAB PO/SL PRN (11:00)
[2016-11-30] MEDS ORDERED: LORazepam 0.5 MG TAB PO PRN (11:15)
[2016-11-30] MEDS ORDERED: ACETAMINOPHEN 650 MG SUPP RECTAL PRN (11:30)
[2016-11-30] MEDS ORDERED: BISACODYL 10 MG SUPP RECTAL PRN (11:30)
[2016-11-30] MEDS ORDERED: FUROSEMIDE 20 MG/2 ML VIAL IV PRN (11:30)
[2016-11-30] MEDS: MORPHINE SULFATE 4 MG/ML INJ IV PUSH SCH ×3 (11:34→18:34)
[2016-11-30] MEDS: LORazepam 2 MG/ML VIAL IV PUSH SCH ×3 (11:34→18:33)
[2016-11-30] MEDS: MORPHINE SULFATE 4 MG/ML INJ IV PUSH PRN ×2 (12:50→20:26)
[2016-11-30] MEDS ORDERED: LORazepam 2 MG/ML VIAL IV PRN (13:00)
[2016-11-30] MEDS ORDERED: HALOPERIDOL 1 MG TAB PO PRN (16:00)
[2016-11-30] MEDS ORDERED: HALOPERIDOL 0.5 MG TAB PO PRN (16:00)
--- NOTE | 2016-11-30 19:08 | HHI.PR ---
Subjective Remarks C/O sob sat 95% on o2 thoracentesis done SOB better Objective Vital Signs Date Time Temp Pulse Resp B/P Pulse Ox O2 Delivery O2 Flow Rate FiO2 11/30/16 09:02 100 Nasal Cannula 4.00 11/30/16 08:00 Nasal Cannula 4.00 Humidified 11/30/16 04:29 81/54 11/30/16 04:25 78/58 11/30/16 04:20 78/0 11/30/16 04:19 97.9 86 23 76/44 100 11/30/16 04:19 Nasal Cannula 4.00 Humidified 11/30/16 00:20 Nasal Cannula 4.00 Humidified 11/30/16 00:20 97.3 87 22 80/55 100 11/29/16 20:00 95.8 89 24 87/49 100 11/29/16 20:00 Nasal Cannula 4.00 Humidified I/O 11/29/16 11/29/16 11/29/16 11/30/16 11/30/16 11/30/16 07:00 15:00 23:00 07:00 15:00 23:00 Intake Total 150 ml 240 ml 120 ml 120 ml Output Total 350 ml 250 ml 400 ml 500 ml Balance -200 ml -10 ml -280 ml -380 ml Intake Oral 150 ml 240 ml 120 ml 120 ml Output Urine Total 350 ml 250 ml 400 ml 500 ml # Bowel Movements 1 0 1 Result Diagram: 11/27/16 1000 11/30/16 0630 Assessment and Plan Assessment and Plan respiratory failure fluid over load valve endocardirditis bilateral effusion PLAN o2 as needed pulm toilet Discussed Condition With GENERAL: SKIN: Warm and dry. HEAD: Atraumatic. Normocephalic. EYES: Pupils equal and round. No scleral icterus. No injection or drainage. ENT: No nasal bleeding or discharge. Mucous membranes pink and moist. NECK: Trachea midline. No JVD. CARDIOVASCULAR: Regular rate and rhythm. RESPIRATORY: No accessory muscle use. Clear to auscultation. Breath sounds equal bilaterally. GASTROINTESTINAL: Abdomen soft, non-tender, nondistended. Hepatic and splenic margins not palpable. MUSCULOSKELETAL: Extremities without clubbing, cyanosis, or edema. No obvious deformities. NEUROLOGICAL: Awake and alert. No obvious cranial nerve deficits. Motor grossly within normal limits. Five out of 5 muscle strength in the arms and legs. Normal speech. PSYCHIATRIC: Appropriate mood and affect; insight and judgment normal. Talisha Woodall MD Nov 30, 2016 19:07
[2016-11-30] MEDS: MIRTAZAPINE 15 MG TAB PO SCH (20:26)
[2016-12-01] MEDS: LORazepam 2 MG/ML VIAL IV PUSH SCH ×7 (00:16→22:47)
[2016-12-01] MEDS: MORPHINE SULFATE 4 MG/ML INJ IV PUSH SCH ×7 (00:17→22:48)
[2016-12-01] MEDS: levETIRAcetam INJ 500 MG in SODIUM CHLORIDE 0.9% INJ 100 ML IV SCH ×2 (06:05→17:02)
[2016-12-01] MEDS: SODIUM CHLORIDE 0.9% FLUSH 5 ML FLUSH FLUSH SCH ×2 (08:55→21:00)
[2016-12-01] MEDS: PETROLATUM 30 GM TUBE TOPICAL SCH (08:56)
--- NOTE | 2016-12-01 09:12 | HHI.FPPN ---
Subjective Remarks Patient seen this morning. No acute events overnight. Sating in the 100s on 4L NC this morning. Per nursing, mother was concerned for "hard spot" (spasm?) in her thighs. No other concerns apparently. Ewa asking for "oxygen" this morning. States she feels SOB and would like a breathing treatment. No other concerns. Feels sleepy, but comfortable. (Freddie Aguilar MD R3) Objective Vitals Vital Signs Date Time Temp Pulse Resp B/P Pulse Ox O2 Delivery O2 Flow Rate FiO2 11/30/16 19:30 Nasal Cannula 4.00 11/30/16 09:02 100 Nasal Cannula 4.00 I/O 11/30/16 11/30/16 11/30/16 12/01/16 12/01/16 12/01/16 07:00 15:00 23:00 07:00 15:00 23:00 Intake Total 120 ml Output Total 500 ml 250 ml 200 ml Balance -380 ml -250 ml -200 ml Intake Oral 120 ml Output Urine Total 500 ml 250 ml 200 ml # Bowel Movements 1 (Freddie Aguilar MD R3) Result Diagram: 11/27/16 1000 11/30/16 0630 Objective Remarks GENERAL: frail-appearing, female patient. Sleepy. Short responses to questions, then goes back to sleep. SKIN: Warm and dry. Has FR anterior brachial PICC in place. no signs of infection HEENT: AT/NC. Pupils equal and round. Mild scleral icterus. MMM. Increased respiratory secretions today. HEART: RRR with 3/6 LARRY heard throughout. Thready distal pulses. Cool extremities. LUNGS: Breathing unlabored. Wet-sounding rales at lung bases (R>L), unchanged from yesterday. No other obvious adventitious sounds. ABDOMEN: Soft, ND. Bruises present in LLQ from injections. : Carter in place with char[place] colored urine. EXTREMITIES: No cyanosis or clubbing. Trace edema in LEs bilaterally. THIGHS: No gross deformity. Quadriceps are tight, without obvious spasm. NEURO: Follows commands. Flatwork Finisher Hand right hand and wiggles all toes. Able to lift right upper and lower extremities against resistance. Some upper and lower extremity movement against gravity on the left. Left wrist brace in place. 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 Blood cultures growing Strep viridans. Critical care consulted, now signed off. Infectious disease managing antibiotic coverage. Cardiology and CT surgery consulted; patient not a candidate for a second valve replacement since she already has both MV and AV replaced in September and there is a question of current drug use. Patient had a new-onset seizure with respiratory failure on and was subsequently intubated. MRI showing mass with surrounding hemorrhage of left frontal lobe which worsened slightly on follow up. Neurology and neurosurgery consulted. Palliative care now on board, as well. Family currently wishes to continue aggressive care. She is now s/p extubation 11/13. Moved from ICU to med-surg floor 11/15. CT brain 11/16 shows mild improvement of left frontal hemorrhage. She c/o worsening dyspnea 11/21. Ddimer elevated. CTA and bl LE dopplers negative. She is now s/p thoracentesis 11/27 for worsening right pleural effusion. She has now made decision to change code status to DNR and pursue comfort measures only. She expressed concern for safety with [facility] and will thus remain admitted to our service over the weekend. May consider [facility] on Saturday (12/03). Discharge Planning Patient has transferred over to comfort care only. Will remain on our service over the weekend with potential transfer to Hospice on Saturday, as above. Will discuss with Dr. Pires. (Freddie Aguilar MD R3) Attending Attestation Patient seen and examined. Case reviewed and discussed with the resident team. Agree with plan of care as discussed with me and documented in the resident note. appreciate help palliative and hospice (Gladys Pires MD) Problem List: (1) CHF exacerbation Status: Acute Plan: Weight stable from yesterday. 450 UOP. No longer keep strict I/Os since patient transferred to comfort care. -BP meds DCed -lasix 20mg IV PRN for pulmonary congestion -morphine 2mg q4 SOMMER for CP. PRN IV morphine q1 for SOB or CP. -PRN atrovent for SOB. -1.5L fluid restriction with 2g sodium restriction. -supplemental O2 1-2L for cardiogenic dyspnea. Will use humidified O2 vaseline for nasal irritation. History: -repeat echo 11/23 shows no acute changes. (2) Dyspnea Status: Acute Plan: Unchanged from yesterday. -on atrovent q2 PRN SOB. -? anxiety contributing. Will continue PRN ativan. -PRN morphine for dyspnea History: -CTA and bl LE doppler negative 11/21 (3) Quadricep tightness Status: Acute Plan: ? spasm. Will start on flexeril TID. (4) Increased oropharyngeal secretions Status: Acute Plan: Add levsin PRN. (5) Endocarditis Status: Acute Plan: Blood cultures growing step viridans. 2D echo suggestive of AV vegetation. - Repeat blood cultures on 11/09 show no growth - ID managing antibiotics * PCN (11/09-11/30) DCed yesterday with transfer to comfort care. * Previously on Gentamycin (11/15-11/27). -cards and cards surgery have evaluated. Not a candidate for repeat cardiac surgery. Cultures: 11/27 Pleural fluid - pending 11/09 Blood- Negative x5 days 11/07 Blood (Linex2 and Peripheralx2)- Strep Viridans; resistant to Erythromycin (6) Cerebrovascular accident, embolic Status: Acute Plan: -Anticoagulation on hold with transfer to comfort care -INR 1.6 on 11/28. -Keppra for sz ppx. -left wrist splint to keep in neutral position History: Head CT 11/16- Evolving parenchymal hemorrhage L orbital frontal region as described above CT 11/13 showed left enlarging frontal lobe hematoma. New R parietal hemorrhage MRA 11/10 showing abrupt decrease in flow at M2 branches of right MCA MRI 11/09 showing widespread bilateral infarcts and focal intra-axial mass with surrounding hemorrhage of the left frontal lobe (7) Seizure Status: Acute Plan: Continue seizure ppx, as above. (8) Anxiety Status: Chronic Plan: will have low doses of ativan (9) Depression Status: Acute Plan: Decreased appetite and lethargy over the past several days. I am concerned her sxs are related, at least in part, to depression. -remeron 15 mg HS -haldol for agitation (10) Dietary counseling and surveillance Status: Acute Plan: Diet: heart healthy with thin liquids per speech. 1.5L fluid and 2g sodium restriction. Fluids: SLIV DVT ppx: anticoagulation DCed, as above. (Freddie Aguilar MD R3) Problem Qualifiers (1) CHF exacerbation: Qualified Code: I50.23 - Acute on chronic systolic congestive heart failure (2) Dyspnea: Qualified Code: R06.02 - Shortness of breath (3) Endocarditis: Qualified Code: I33.0 - Acute bacterial endocarditis (4) Cerebrovascular accident, embolic: (5) Depression: Qualified Code: F33.0 - Mild episode of recurrent major depressive disorder Freddie Aguilar MD R3 Dec 01, 2016 09:12 Gladys Pires MD Dec 02, 2016 14:33
[2016-12-01] MEDS ORDERED: HYOSCYAMINE 0.125 MG TAB PO PRN (09:30)
[2016-12-01] MEDS: CYCLOBENZAPRINE HCL 10 MG TAB PO SCH ×3 (11:12→22:44)
[2016-12-01] MEDS: DOCUSATE SODIUM 100 MG CAP PO SCH ×2 (11:13→22:45)
--- NOTE | 2016-12-01 17:41 | HHI.PR ---
Subjective Remarks C/O sob sat 95% on o2 thoracentesis done SOB better Objective Vital Signs Date Time Temp Pulse Resp B/P Pulse Ox O2 Delivery O2 Flow Rate FiO2 12/01/16 09:42 Nasal Cannula 4.00 21 11/30/16 19:30 Nasal Cannula 4.00 I/O 11/30/16 11/30/16 11/30/16 12/01/16 12/01/16 12/01/16 07:00 15:00 23:00 07:00 15:00 23:00 Intake Total 120 ml 240 ml Output Total 500 ml 250 ml 200 ml 50 ml Balance -380 ml -250 ml -200 ml 190 ml Intake Oral 120 ml 240 ml Output Urine Total 500 ml 250 ml 200 ml 50 ml # Bowel Movements 1 0 Result Diagram: 11/27/16 1000 11/30/16 0630 Medications and IVs GENERAL: SKIN: Warm and dry. HEAD: Atraumatic. Normocephalic. EYES: Pupils equal and round. No scleral icterus. No injection or drainage. ENT: No nasal bleeding or discharge. Mucous membranes pink and moist. NECK: Trachea midline. No JVD. CARDIOVASCULAR: Regular rate and rhythm. RESPIRATORY: No accessory muscle use. Clear to auscultation. Breath sounds equal bilaterally. GASTROINTESTINAL: Abdomen soft, non-tender, nondistended. Hepatic and splenic margins not palpable. MUSCULOSKELETAL: Extremities without clubbing, cyanosis, or edema. No obvious deformities. NEUROLOGICAL: Awake and alert. No obvious cranial nerve deficits. Motor grossly within normal limits. Five out of 5 muscle strength in the arms and legs. Normal speech. PSYCHIATRIC: Appropriate mood and affect; insight and judgment normal. Assessment and Plan Assessment and Plan respiratory failure fluid over load valve endocardirditis bilateral effusion PLAN o2 as needed pulm toilet Talisha Woodall MD Dec 01, 2016 17:41
[2016-12-01] MEDS: MIRTAZAPINE 15 MG TAB PO SCH (22:44)
[2016-12-02] MEDS: LORazepam 2 MG/ML VIAL IV PUSH SCH ×4 (02:07→14:46)
[2016-12-02] MEDS: MORPHINE SULFATE 4 MG/ML INJ IV PUSH SCH ×4 (02:07→14:47)
[2016-12-02] MEDS: levETIRAcetam INJ 500 MG in SODIUM CHLORIDE 0.9% INJ 100 ML IV SCH (06:01)
[2016-12-02] MEDS: CYCLOBENZAPRINE HCL 10 MG TAB PO SCH ×2 (06:02→14:00)
[2016-12-02] MEDS: SODIUM CHLORIDE 0.9% FLUSH 5 ML FLUSH FLUSH SCH (08:42)
[2016-12-02] MEDS: PETROLATUM 30 GM TUBE TOPICAL SCH (08:43)
[2016-12-02] MEDS: MORPHINE SULFATE 4 MG/ML INJ IV PUSH PRN ×2 (09:50→12:53)
[2016-12-02] MEDS: DOCUSATE SODIUM 100 MG CAP PO SCH (10:45)
--- NOTE | 2016-12-02 11:00 | HHI.FPPN ---
Subjective Remarks Patient seen this morning. No acute events overnight. Patient is sating well on 4L NC. Father is present in the room. He thinks she looks comfortable. No concerns at this time. Global Engineering Manager services saw her earlier this morning. Ewa is responsive to sternal rub this morning, but does not answer questions or follow commands. Per nursing, pooling more secretions. They are giving levsin and lasix. (Freddie Aguilar MD R3) Objective Vitals Vital Signs Date Time Temp Pulse Resp B/P Pulse Ox O2 Delivery O2 Flow Rate FiO2 12/01/16 20:45 Nasal Cannula 4.00 I/O 12/01/16 12/01/16 12/01/16 12/02/16 12/02/16 12/02/16 07:00 15:00 23:00 07:00 15:00 23:00 Intake Total 240 ml 100 ml 100 ml Output Total 200 ml 50 ml Balance -200 ml 190 ml 100 ml 100 ml Intake Oral 240 ml IV Total 100 ml 100 ml Output Urine Total 200 ml 50 ml # Bowel Movements 0 (Freddie Aguilar MD R3) Result Diagram: 11/30/16 0630 Objective Remarks GENERAL: frail-appearing, female patient. Sleepy. Short responses to questions, then goes back to sleep. SKIN: Warm and dry. Has FR anterior brachial PICC in place. no signs of infection HEENT: AT/NC. Pupils equal and round. Mild scleral icterus. MMM. Increased respiratory secretions today. HEART: RRR with 3/6 LARRY heard throughout. Thready distal pulses. Cool extremities. CHEST WALL: Intercostal retractions. LUNGS: Breathing unlabored. Wet-sounding rales at lung bases (R>L), unchanged from yesterday. No other obvious adventitious sounds. ABDOMEN: Soft, ND. Bruises present in LLQ from injections. : Carter in place with char[place] colored urine. EXTREMITIES: No cyanosis or clubbing. Trace edema in LEs bilaterally. THIGHS: No gross deformity. Quadriceps are tight, without obvious spasm. NEURO: Follows commands. Nutritional Health Coach right hand and wiggles all toes. Able to lift right upper and lower extremities against resistance. Some upper and lower extremity movement against gravity on the left. Left wrist brace in place. 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 Blood cultures growing Strep viridans. Critical care consulted, now signed off. Infectious disease managing antibiotic coverage. Cardiology and CT surgery consulted; patient not a candidate for a second valve replacement since she already has both MV and AV replaced in September and there is a question of current drug use. Patient had a new-onset seizure with respiratory failure on and was subsequently intubated. MRI showing mass with surrounding hemorrhage of left frontal lobe which worsened slightly on follow up. Neurology and neurosurgery consulted. Palliative care now on board, as well. Family currently wishes to continue aggressive care. She is now s/p extubation 11/13. Moved from ICU to med-surg floor 11/15. CT brain 11/16 shows mild improvement of left frontal hemorrhage. She c/o worsening dyspnea 11/21. Ddimer elevated. CTA and bl LE dopplers negative. She is now s/p thoracentesis 11/27 for worsening right pleural effusion. She has now made decision to change code status to DNR and pursue comfort measures only. She expressed concern for safety with transfer [facility] and will thus remain admitted to our service over the weekend. May consider [facility] on Saturday (12/03). Discharge Planning Patient has transferred over to comfort care only. Will remain on our service over the weekend with potential transfer to Hospice on Saturday, as above. Will discuss with Dr. Pires. (Freddie Aguilar MD R3) Attending Attestation Patient seen and examined. Case reviewed and discussed with the resident team. Agree with plan of care as discussed with me and documented in the resident note. (Gladys Pires MD) Problem List: (1) CHF exacerbation Status: Acute Plan: Dyspnea well controlled at this point. -BP meds DCed -lasix 20mg IV PRN for pulmonary congestion -morphine 2mg q4 SOMMER for CP. PRN IV morphine q1 for SOB or CP. -PRN atrovent for SOB. -1.5L fluid restriction with 2g sodium restriction. -supplemental O2 1-2L for cardiogenic dyspnea. Will use humidified O2 vaseline for nasal irritation. History: -repeat echo 11/23 shows no acute changes. (2) Dyspnea Status: Acute Plan: Unchanged from yesterday. -on atrovent q2 PRN SOB. -? anxiety contributing. Will continue PRN ativan. -PRN morphine for dyspnea History: -CTA and bl LE doppler negative 11/21 (3) Quadricep tightness Status: Acute Plan: ? spasm. Continue flexeril TID. (4) Increased oropharyngeal secretions Status: Acute Plan: Levsin PRN. (5) Endocarditis Status: Acute Plan: Blood cultures growing step viridans. 2D echo suggestive of AV vegetation. - Repeat blood cultures on 11/09 show no growth - ID managing antibiotics * PCN (11/09-11/30) DCed with transfer to comfort care. * Previously on Gentamycin (11/15-11/27). -cards and cards surgery have evaluated. Not a candidate for repeat cardiac surgery. Cultures: 11/27 Pleural fluid - pending 11/09 Blood- Negative x5 days 11/07 Blood (Linex2 and Peripheralx2)- Strep Viridans; resistant to Erythromycin (6) Cerebrovascular accident, embolic Status: Acute Plan: -Anticoagulation on hold with transfer to comfort care -INR 1.6 on 11/28. -Keppra for sz ppx. -left wrist splint to keep in neutral position History: Head CT 11/16- Evolving parenchymal hemorrhage L orbital frontal region as described above CT 11/13 showed left enlarging frontal lobe hematoma. New R parietal hemorrhage MRA 11/10 showing abrupt decrease in flow at M2 branches of right MCA MRI 11/09 showing widespread bilateral infarcts and focal intra-axial mass with surrounding hemorrhage of the left frontal lobe (7) Seizure Status: Acute Plan: Continue seizure ppx, as above. (8) Anxiety Status: Chronic Plan: will have low doses of ativan (9) Depression Status: Acute Plan: Decreased appetite and lethargy over the past several days. I am concerned her sxs are related, at least in part, to depression. -remeron 15 mg HS -haldol for agitation (10) Dietary counseling and surveillance Status: Acute Plan: Diet: heart healthy with thin liquids per speech. 1.5L fluid and 2g sodium restriction. Fluids: SLIV DVT ppx: anticoagulation DCed, as above. (Freddie Aguilar MD R3) Problem Qualifiers (1) CHF exacerbation: Qualified Code: I50.23 - Acute on chronic systolic congestive heart failure (2) Dyspnea: Qualified Code: R06.02 - Shortness of breath (3) Endocarditis: Qualified Code: I33.0 - Acute bacterial endocarditis (4) Cerebrovascular accident, embolic: (5) Depression: Qualified Code: F33.0 - Mild episode of recurrent major depressive disorder Freddie Aguilar MD R3 Dec 02, 2016 11:00 Gladys Pires MD Dec 02, 2016 15:08
--- NOTE | 2016-12-02 11:24 | HHI.FPPN ---
Addendum to progress note ADDENDUM Reason for addendum: Additonal documentation Additional information *Off service note* 26 year-old patient with history of recurrent endocarditis s/p mitral and aortic valve replacement here with recurrent endocarditis. Initially had ARF and required intubation on admission. Required several days in the ICU. Discovered to have hemorrhagic infarct, likely from septic embolus, on admission. Neurosurgery consulted. Repeat CT scans show bleeding has stabilized. ID consulted and started on PCN and gentamicin. Patient was transferred to regular medicine floor after she was weaned from the vent. On the floor, was started on aggressive diuresis. Cards was consulted for management of CHF. Cards surgery was also consulted and stated patient not candidate for repeat valve surgery. Despite aggressive diuresis, patient had worsening right pleural effusion and pulmonary edema. Pulmonology was consulted and recommended thoracentesis. This was performed by critical care. Gram stain and culture of pleural fluid was negative. Despite thoracentesis and aggressive diuresis, pulmonary congestion and dyspnea continued to worsen. Parents and patient eventually decided to transition to comfort care only. Patient refused [facility], preferring to remain in the hospital. Palliative care is on board. We are managing her care over the weekend and Hospice will reevaluate Saturday for potential transfer to care center. Freddie Aguilar MD R3 Dec 02, 2016 11:24
--- NOTE | 2016-12-26 13:49 | HHI.DS ---
Discharge Summary Admission Date Nov 06, 2016 at 22:12 Discharge Date: Dec 02, 2016 Admitting Diagnosis Sepsis, CHF exacerbation, Hypoxemia on RA (1) CHF exacerbation Diagnosis: Principal Plan: Dyspnea well controlled at this point. -BP meds DCed -lasix 20mg IV PRN for pulmonary congestion -morphine 2mg q4 SOMMER for CP. PRN IV morphine q1 for SOB or CP. -PRN atrovent for SOB. -1.5L fluid restriction with 2g sodium restriction. -supplemental O2 1-2L for cardiogenic dyspnea. Will use humidified O2 vaseline for nasal irritation. History: -repeat echo 11/23 shows no acute changes. (2) Dyspnea Diagnosis: Secondary Plan: Unchanged from yesterday. -on atrovent q2 PRN SOB. -? anxiety contributing. Will continue PRN ativan. -PRN morphine for dyspnea History: -CTA and bl LE doppler negative 11/21 (3) Quadricep tightness Diagnosis: Secondary Plan: ? spasm. Continue flexeril TID. (4) Increased oropharyngeal secretions Diagnosis: Secondary Plan: Levsin PRN. (5) Endocarditis Diagnosis: Secondary Plan: Blood cultures growing step viridans. 2D echo suggestive of AV vegetation. - Repeat blood cultures on 11/09 show no growth - ID managing antibiotics * PCN (11/09-11/30) DCed with transfer to comfort care. * Previously on Gentamycin (11/15-11/27). -cards and cards surgery have evaluated. Not a candidate for repeat cardiac surgery. Cultures: 11/27 Pleural fluid - pending 11/09 Blood- Negative x5 days 11/07 Blood (Linex2 and Peripheralx2)- Strep Viridans; resistant to Erythromycin (6) Cerebrovascular accident, embolic Diagnosis: Secondary Plan: -Anticoagulation on hold with transfer to comfort care -INR 1.6 on 11/28. -Keppra for sz ppx. -left wrist splint to keep in neutral position History: Head CT 11/16- Evolving parenchymal hemorrhage L orbital frontal region as described above CT 11/13 showed left enlarging frontal lobe hematoma. New R parietal hemorrhage MRA 11/10 showing abrupt decrease in flow at M2 branches of right MCA MRI 11/09 showing widespread bilateral infarcts and focal intra-axial mass with surrounding hemorrhage of the left frontal lobe (7) Seizure Diagnosis: Secondary Plan: Continue seizure ppx, as above. (8) Anxiety Diagnosis: Secondary Plan: will have low doses of ativan (9) Depression Diagnosis: Secondary Plan: Decreased appetite and lethargy over the past several days. I am concerned her sxs are related, at least in part, to depression. -remeron 15 mg HS -haldol for agitation (10) Dietary counseling and surveillance Diagnosis: Secondary Plan: Diet: heart healthy with thin liquids per speech. 1.5L fluid and 2g sodium restriction. Fluids: SLIV DVT ppx: anticoagulation DCed, as above. Consultants Cardiology (Dr. Blanc) Cardiovascular surgery (Dr. Meier) Neurosurgery (Dr. Torres) Critical Care (Dr. Lynn) Infectious disease (Dr. Parson) Pulmonology (Dr. Thompson) Palliative Care (Shakira Lacy) Brief History Ewa Barrios is a 26 year-old female with history of MRSA endocarditis , secondary to IVDU, s/p mitral and aortic valve repair x 2, with CHF (EF 25-30% ) presents via EMS with retrosternal chest pain and periumbilical pain x2 hours. Pt's requirement of BIPAP at time of interview limited history taking. Reports sudden onset of chest and abdominal pain earlier in the evening while resting on couch prompting mother to call EMS. Chest pain is at inferior sternum, sharp, non-radiating, and unchanged in severity since admission to ED. Abdominal pain bothered her the most. She feels better this am. Reports uriel- umbilical non-radiating pain that started same time as chest pain. Also, swollen abdomen several days in duration, and chills and sweating earlier this evening. Denies confusion, headache, blurry vision, or vomiting. Denies IVDU since heart valve replacement 09/2016. PCP is Dr. Travis Gray. She had a long history of multiple episodes of endocarditis and 2 valve replacement. She suffered with a CVA and was extremely ill. She had an extended stay in rehab and was doing well enough to go home. She has a history of iv drug abuse which necessitated the two time valve replacement. However, it is unclear that she has used any iv drugs recently and has denied that. Per report , though it's not final, there was a vegetation on her aortic valve now. She is extremely ill requiring pressors and on bipap right now but responded to her treatment here. She wishes to be a full code. PE at Discharge GENERAL: frail-appearing, female patient. Sleepy. Short responses to questions, then goes back to sleep. SKIN: Warm and dry. Has FR anterior brachial PICC in place. no signs of infection HEENT: AT/NC. Pupils equal and round. Mild scleral icterus. MMM. Increased respiratory secretions today. HEART: RRR with 3/6 LARRY heard throughout. Thready distal pulses. Cool extremities. CHEST WALL: Intercostal retractions. LUNGS: Breathing unlabored. Wet-sounding rales at lung bases (R>L), unchanged from yesterday. No other obvious adventitious sounds. ABDOMEN: Soft, ND. Bruises present in LLQ from injections. : Carter in place with charlotte colored urine. EXTREMITIES: No cyanosis or clubbing. Trace edema in LEs bilaterally. THIGHS: No gross deformity. Quadriceps are tight, without obvious spasm. NEURO: Follows commands. Fender Repairer right hand and wiggles all toes. Able to lift right upper and lower extremities against resistance. Some upper and lower extremity movement against gravity on the left. Left wrist brace in place. Hospital Course 26 year old female with history of CHF 2/2 recurrent endocarditis s/p aortic and mitral valve replacement admitted 11/07 with SOB. Initially in septic shock with ARF. Required intubation. Started on broad-spectrum antibiotics. Intensive care, cardiology, and ID consulted. Blood cultures on admission positive for strep viridans. MRI brain on admission showed wide-spread bilateral infarcts, several weeks age with focal, intra-axial mass with surrounding hemorrhage in the left frontal lobe. Patient's home warfarin was held because of hemorrhagic stroke. Neurosurgery was consulted and recommended observation and sz ppx with juana. She was able to wean off of the vent 11/13 and was sent from ICU to med- surg floor. 2D echocardiogram after admission was suspicious AV vegetation. Cards surgery was consulted and stated patient not candidate for revision of valve surgery. Patient was switched from broad-spectrum abx to PCN after initial blood culture sensitivities came back. Re-starting anticoagulation was discussed with neurosurgery out of concern for thrombosis with prosthetic valve. They recommended CT head, which showed no acute change. She was started on low-dose lovenox. After arriving at med-surg floor, patient continued to have dyspnea despite aggressive diuresis. This was complicated by low blood pressures (MAP in the 60s). Nursing had to regularly hold diuretic medications as pressures would drop below recommended threshold by neurosurgery. This was discussed with cardiology on 11/23. CXR did show right pleural effusion and they recommended consulting pulm for possible thoracentesis. Consult was placed for pulmonology and they agreed with thoracentesis. Palliative care was also consulted for symptom management. After discussion with family, they decided to continue with aggressive care and keep patient full code. Patient had acute worsening SOB overnight 11/27 and Halicat was called. Web Services Developer performed thoracentesis. Specimen was sent and studies, including gram stain and culture, were negative. Web Services Developer suggested patient had poor prognosis and had failed medical therapy. They stated intubation and mechanical ventilation would be futile at that point. She was sent back down to med-surg floor. Patient dyspnea continued to worsen despite aggressive diuresis. By 11/30, CXR had actually worsened compared to 11/27 (before thoracentesis). Primary team had family meeting along with palliative care 11/30. At that time, discussed likely poor prognosis with family along with lack of additional therapeutic options (eg surgery). In addition, discussed worsening sxs (dyspnea, CP) despite aggressive medical therapy. Family decided to make patient DNR and transfer to Hospice care. She did remain at the hospital because of concern with transfer to hospice center. She 12/02/2016, likely from cardiopulmonary arrest 2/ 2 worsening CHF. Pt Condition on Discharge: Deteriorating Discharge Instructions Speech Therapy-Diet Recommends: Regular, Mikes Thickened Liquids Freddie Aguilar MD R3 Dec 26, 2016 13:49
== END 2016-12-02 22:00 | disposition expired | DRG 314 ==
LOC: NEPC 19:47 → NEDA 22:12 → N03B 11-07 01:05 → N04A 11-15 11:11
PROVIDERS: ADMIT Family Medicine; ATTEND Family Medicine
PROC: 5A09357 Assistance with Respiratory Ventilation, Less than 24 Consecutive Hours, Continuous Positive Airway Pressure (ICD-10-PCS; 2016-11-06)
PROC: 02HV33Z Insertion of Infusion Device into Superior Vena Cava, Percutaneous Approach (ICD-10-PCS; principal; 2016-11-07)
PROC: 30233K1 Transfusion of Nonautologous Frozen Plasma into Peripheral Vein, Percutaneous Approach (ICD-10-PCS; 2016-11-08)
PROC: 5A1945Z Respiratory Ventilation, 24-96 Consecutive Hours (ICD-10-PCS; 2016-11-09)
PROC: 0BH17EZ Insertion of Endotracheal Airway into Trachea, Via Natural or Artificial Opening (ICD-10-PCS; 2016-11-09)
PROC: 02HV33Z Insertion of Infusion Device into Superior Vena Cava, Percutaneous Approach (ICD-10-PCS; 2016-11-18)
PROC: 0W993ZZ Drainage of Right Pleural Cavity, Percutaneous Approach (ICD-10-PCS; 2016-11-27)
DX: T82.6XXA Infection and inflammatory reaction due to cardiac valve prosthesis, initial encounter (principal); I33.0 Acute and subacute infective endocarditis; J96.01 Acute respiratory failure with hypoxia; I63.40 Cerebral infarction due to embolism of unspecified cerebral artery; G93.40 Encephalopathy, unspecified; J90 Pleural effusion, not elsewhere classified; R65.21 Severe sepsis with septic shock; R57.0 Cardiogenic shock; I50.23 Acute on chronic systolic (congestive) heart failure; A40.8 Other streptococcal sepsis; D68.9 Coagulation defect, unspecified; E87.2 Acidosis; I76 Septic arterial embolism; E46 Unspecified protein-calorie malnutrition; E87.1 Hypo-osmolality and hyponatremia; I69.354 Hemiplegia and hemiparesis following cerebral infarction affecting left non-dominant side; I62.9 Nontraumatic intracranial hemorrhage, unspecified; I42.9 Cardiomyopathy, unspecified; N17.9 Acute kidney failure, unspecified; F33.0 Major depressive disorder, recurrent, mild; D69.59 Other secondary thrombocytopenia; B18.2 Chronic viral hepatitis C; D64.9 Anemia, unspecified; E87.6 Hypokalemia; E87.5 Hyperkalemia; R56.9 Unspecified convulsions; I27.2 Other secondary pulmonary hypertension; F41.9 Anxiety disorder, unspecified; Z86.14 Personal history of Methicillin resistant Staphylococcus aureus infection; Z86.711 Personal history of pulmonary embolism; Z79.01 Long term (current) use of anticoagulants; Y83.1 Surgical operation with implant of artificial internal device as the cause of abnormal reaction of the patient, or of later complication, without mention of misadventure at the time of the procedure; Z86.718 Personal history of other venous thrombosis and embolism; Z87.891 Personal history of nicotine dependence; Z91.14 Patient's other noncompliance with medication regimen; Z87.898 Personal history of other specified conditions
CPT/HCPCS: 31500; 32554; 36430; 36556; 36569; 36600; 51702; 70450; 70544; 70553; 71010; 71275; 76937; 80048; 80053; 80170; 80202; 80307; 81001; 82042; 82150; 82465; 82550; 82565; 82805; 82945; 82948; 83605; 83615; 83690; 83735; 83880; 83986; 84100; 84132; 84146; 84155; 84157; 84443; 84484; 84702; 84703; 85007; 85025; 85027; 85379; 85384; 85610; 85652; 85730; 86077; 86140; 86850; 86870; 86900; 86901; 86902; 86920; 86922; 86927; 87040; 87070; 87086; 87205; 87493; 89051; 93005; 93306; 93970; 93971; 94002; 94003; 94150; 94640; 94664; 94667; 94668; 94799; 95819; 96361; 96374; A9579; C9113; C9132; J0610; J0692; J1250; J1265; J1580; J1642; J1650; J1940; J1953; J2060; J2250; J2270; J2540; J2543; J3010; J3370; J3430; J3480; J7030; J7050; J7644; L3908; P9017; P9047; Q9967